=== PATIENT | female | born 1940 | race Caucasian/White ===

== ENCOUNTER 2016-05-19 18:44 | Emergency (ER) | payer BC ==
[~2016-05-19] VITALS: Ht 162.6 cm; Wt 83.0 kg
[~2016-05-19 18:44] MED LIST: ASPI81TA28 PO; CLB/200 PO; CLON0.1T12 PO; CYM/30 PO; DICL-201 PO; HYDR25TA5 PO; LISI40TA PO
[2016-05-19 18:47] VITALS: TEMP 36.7; Ht 162.6 cm; Wt 83.0 kg
[2016-05-19] MEDS ORDERED: CLON0.2T PO (19:35)
[2016-05-19] MEDS ORDERED: CLB100 PO (19:35)
[2016-05-19] MEDS ORDERED: BUPR100T8 PO (19:35)
[2016-05-19 19:49] LABS: URINE APPEARANCE CLEAR (CLEAR); URINE BILIRUBIN NEG (NEG); URINE COLOR YELLOW; URINE EPITHELIAL CELL AUTO 20-30 /lpf (0-5); URINE NITRITE NEG (NEG); URINE SPECIFIC GRAVITY 1.004 (1.000-1.030); UROBILINOGEN NEG (NEG)
--- NOTE | 2016-05-19 19:52 | DIAGNOSTIC IMAGING REPORT ---
RIGHT KNEE 3 VIEWS CLINICAL HISTORY: Right knee pain. No history of trauma. FINDINGS: AP, crosstable lateral, and sunrise views of the right knee are obtained. No prior studies are available for comparison at the time of dictation. The skeletal structures are osteopenic. There is no radiographic evidence of fracture. There is moderate to advanced tricompartmental degenerative joint space narrowing, greatest in the lateral compartment where there is bony sclerosis and subchondral cyst formation. There are tiny lateral marginal osteophytes and patellar enthesophytes. A large joint effusion is noted. The overlying soft tissues are within normal limits. IMPRESSION: 1. Large joint effusion. No acute bony abnormality is seen. 2. Osteopenia and arthritic change as above, advanced in the lateral compartment. Electronically signed by: Lane Hammer M.D. 05/19/2016 7:51 PM Dictated Date/Time: 05/19/2016 7:49 PM
[2016-05-19 19:54] LABS: MANUAL MICROSCOPIC REQUIRED? NO; REVIEW REQ? NO
[2016-05-19 19:56] LABS: BASO % 0.4 %; BASO ABS # 0.04 K/uL (0-0.2); COMPLETE YES; EOS % 2.8 %; HEMATOCRIT 43.6 % (37-47); IG% 0.3 %; LYMPH ABS # 2.22 K/uL (1.2-3.4); MEAN CELL VOLUME 87.2 fL (80-100); MEAN CORPUSCULAR HGB CONC 34.4 g/dl (32-36); MEAN PLATELET VOLUME 9.2 fL (7.4-10.4); MONO % 8.2 %; NEUT % 64.3 %; PLATELET COUNT 237 K/uL (130-400); WHITE BLOOD COUNT 9.24 K/uL (4.8-10.8)
[2016-05-19 20:20] LABS: BUN/CREATININE RATIO 24.4 (10-20); CALCIUM 9.6 mg/dl (8.5-10.1)
[2016-05-19 20:39] LABS: POTASSIUM 3.8 mmol/L (3.5-5.1)
--- NOTE | 2016-05-19 20:53 | EMERGENCY ROOM VISIT NOTE ---
History Report prepared by Keeley: Zakia Espinal Under the Supervision of: Dr. Daniel Khan D.O. First contact with patient: 18:51 Chief Complaint: HYPERTENSION Stated Complaint: HIGH BP History of Present Illness The patient is a 75 year old female who presents to the Emergency Room with complaints of persistent hypertension for the past several days. The patient states that recently she has been under increased emotional stress, pressure, and anxiety. She states that she has multiple stressors in her family that have been causing her stress. The patient additionally notes that she recently had a knee surgery that didn't go well which has also caused increased stress. She states that she takes Clonidine for her hypertension and denies missing any doses. Pt denies headache, change in vision, fevers, chest pain, shortness of breath, nausea, vomiting, diarrhea, pain with urination, and melena. She denies any paresthesias, weakness or numbness of her arms or legs. Source of History: patient Onset: several days Position: other (global) Quality: other (hypertension) Timing: other (persistent) Note: Associated Symptoms: increased emotional stress, pressure, and anxiety Review of Systems See HPI for pertinent positives & negatives. A total of 10 systems reviewed and were otherwise negative. Past Medical & Surgical Medical Problems: (1) Breast cancer (2) Depression (3) Hypercholesteremia (4) Hypertension Surgical Problems: (1) S/P breast lumpectomy Family History No pertinent family history stated Social History Smoking Status: Former Smoker Drug Use: none Marital Status: Housing Status: lives alone Occupation Status: retired Current/Historical Medications Scheduled Aspirin (Aspirin Ec), 81 MG PO DAILY Bupropion (Wellbutrin Sr), 100 MG PO BID Celecoxib (Celebrex), 100 MG PO DAILY Clonidine Hcl (Catapres), 0.2 MG PO TID Duloxetine HCl (Cymbalta), 1 CAP PO HS Hydrochlorothiazide (Hydrochlorothiazide), 25 MG PO QAM Lisinopril (Zestril), 40 MG PO HS Allergies Coded Allergies: Ciprofloxacin (Verified Adverse Reaction, Intermediate, REDNESS ALONG VEIN , 05/19/16) DURING INFUSION PT NOTED TO HAVE MILD ITCHING AND REDNESS AT IV INSERTION AND ABOVE. Atorvastatin (Verified Adverse Reaction, Unknown, muscle pain, 05/19/16) Simvastatin (Verified Adverse Reaction, Unknown, muscle pain, 05/19/16) Physical Exam Vital Signs Date Time Temp Pulse Resp B/P Pulse Ox O2 Delivery O2 Flow Rate FiO2 05/19/16 20:27 129/85 05/19/16 19:34 78 18 168/96 95 Room Air 05/19/16 19:06 78 05/19/16 18:47 36.7 83 18 163/96 95 Room Air Physical Exam GENERAL: Sitting up in bed, anxious, alert, well appearing, well nourished, no distress, non-toxic EYE EXAM: normal conjunctiva, PERRL and EOM's intact OROPHARYNX: no exudate, no erythema, lips, buccal mucosa, and tongue normal and mucous membranes are moist NECK: supple, no nuchal rigidity, no adenopathy, non-tender LUNGS: Clear to auscultation. Normal chest wall mechanics HEART: no murmurs, S1 normal and S2 normal ABDOMEN: abdomen soft, non-tender, normo-active bowel sounds, no masses, no rebound or guarding. BACK: Back is symmetrical on inspection and there is no deformity, no midline tenderness, no CVA tenderness. SKIN: no rashes and no bruising UPPER EXTREMITIES: upper extremities are grossly normal. LOWER EXTREMITIES: No pitting edema. NEURO EXAM: Normal sensorium, cranial nerves II-XII intact, normal speech, no weakness of arms, no weakness of legs. No drift. Finger to nose intact. Gross sensation intact. Medical Decision & Procedures ER Provider Diagnostic Interpretation: Xray results per the radiologist and my interpretation. Other results have been interpreted by the radiologist and reviewed by me. RIGHT KNEE 3 VIEWS CLINICAL HISTORY: Right knee pain. No history of trauma. FINDINGS: AP, crosstable lateral, and sunrise views of the right knee are obtained. No prior studies are available for comparison at the time of dictation. The skeletal structures are osteopenic. There is no radiographic evidence of fracture. There is moderate to advanced tricompartmental degenerative joint space narrowing, greatest in the lateral compartment where there is bony sclerosis and subchondral cyst formation. There are tiny lateral marginal osteophytes and patellar enthesophytes. A large joint effusion is noted. The overlying soft tissues are within normal limits. IMPRESSION: 1. Large joint effusion. No acute bony abnormality is seen. 2. Osteopenia and arthritic change as above, advanced in the lateral compartment. Electronically signed by: Lane Hammer M.D. 05/19/2016 7:51 PM Dictated Date/Time: 05/19/2016 7:49 PM Laboratory Results 05/19/16 19:25 Red Blood Count 5.00, Mean Corpuscular Volume 87.2, Mean Corpuscular Hemoglobin 30.0, Mean Corpuscular Hemoglobin Concent 34.4, Mean Platelet Volume 9.2, Neutrophils (%) (Auto) 64.3, Lymphocytes (%) (Auto) 24.0, Monocytes (%) (Auto) 8.2, Eosinophils (%) (Auto) 2.8, Basophils (%) (Auto) 0.4, Neutrophils # (Auto) 5.93, Lymphocytes # (Auto) 2.22, Monocytes # (Auto) 0.76, Eosinophils # (Auto) 0.26, Basophils # (Auto) 0.04 05/19/16 19:25 Test 05/19/16 19:25 05/19/16 19:28 White Blood Count 9.24 K/uL (4.8-10.8) Red Blood Count 5.00 M/uL (4.2-5.4) Hemoglobin 15.0 g/dL (12.0-16.0) Hematocrit 43.6 % (37-47) Mean Corpuscular Volume 87.2 fL (80-100) Mean Corpuscular Hemoglobin 30.0 pg (25-34) Mean Corpuscular Hemoglobin Concent 34.4 g/dl (32-36) Platelet Count 237 K/uL (130-400) Mean Platelet Volume 9.2 fL (7.4-10.4) Neutrophils (%) (Auto) 64.3 % Lymphocytes (%) (Auto) 24.0 % Monocytes (%) (Auto) 8.2 % Eosinophils (%) (Auto) 2.8 % Basophils (%) (Auto) 0.4 % Neutrophils # (Auto) 5.93 K/uL (1.4-6.5) Lymphocytes # (Auto) 2.22 K/uL (1.2-3.4) Monocytes # (Auto) 0.76 K/uL (0.11-0.59) Eosinophils # (Auto) 0.26 K/uL (0-0.5) Basophils # (Auto) 0.04 K/uL (0-0.2) RDW Standard Deviation 43.0 fL (36.4-46.3) RDW Coefficient of Variation 13.6 % (11.5-14.5) Immature Granulocyte % (Auto) 0.3 % Immature Granulocyte # (Auto) 0.03 K/uL (0.00-0.02) Anion Gap 9.0 mmol/L (3-11) Est Creatinine Clear Calc Drug Dose 50.7 ml/min Estimated GFR () 63.8 Estimated GFR (Non- 55.1 BUN/Creatinine Ratio 24.4 (10-20) Calcium Level 9.6 mg/dl (8.5-10.1) Urine Color YELLOW Urine Appearance CLEAR (CLEAR) Urine pH 6.0 (4.5-7.5) Urine Specific Basco 1.004 (1.000-1.030) Urine Protein NEG (NEG) Urine Glucose (UA) NEG (NEG) Urine Ketones NEG (NEG) Urine Occult Blood NEG (NEG) Urine Nitrite NEG (NEG) Urine Bilirubin NEG (NEG) Urine Urobilinogen NEG (NEG) Urine Leukocyte Esterase SMALL (NEG) Urine WBC (Auto) 5-10 /hpf (0-5) Urine RBC (Auto) 0-4 /hpf (0-4) Urine Hyaline Casts (Auto) 0 /lpf (0-5) Urine Epithelial Cells (Auto) 20-30 /lpf (0-5) Urine Bacteria (Auto) 1+ (NEG) Laboratory results per my review. ECG Indication: other (hypertension) Rate (beats per minute): 73 Rhythm: sinus rhythm Findings: PAC, other (normal axis) ED Course ED COURSE: Vital signs were reviewed and showed hypertensive The patients medical record was reviewed The above diagnostic studies were performed and reviewed. ED treatments and interventions as stated above. 2: The patient was evaluated in room C2. A complete history and physical examination was performed. 2019: I reevaluated the patient and her blood pressure came down to 160 mmHg, but has no other complaints. 2042: Upon reevaluation, the patient is resting comfortably.I discussed my findings with the patient and she understands and agrees with the treatment plan. Based on the patients age, coexisting illnesses, exam and lab findings the decision to treat as an outpatient was made. The patient remained stable while under my care. The patient appeared well at the time of discharge. Medical Decision Differential diagnosis: Etiologies such as benign hypertension, hypertensive emergency, cardiovascular pathology, pheochromocytoma, electrolyte abnormality, renal disease, endorgan damage, as well as others were entertained. Patient is a 75-year-old female who presents the ER for hypertension. She has absolutely no other complaints. She notes that she was checking her blood pressure at home following awaiting a call from her therapist's that is treating her daughter in [place]. Therapist's notified her that she could not talk and will call her later. Following this she checked her blood pressure was elevated in the 190s. She checked again and was elevated 200s and her family member referred her into the ER. Upon presentation her systolic blood pressures is 210 and without intervention her blood pressure came down to 130. CBC along with BMP was unremarkable. UA had no protein present. She is no urinary symptoms and with squamous cells will not treat. EKG was unremarkable. Patient will follow-up with orthopedics for the fusion of her right knee and her primary care doctor for her hypertension. Discussed with Pt concerning signs and symptoms to watch out for. Pt was instructed to follow up with their PCP and discussed with the patient their option to return to the ED at anytime for persistent or worsening symptoms. The appropriate anticipatory guidance and out-patient management, including indications for return to the emergency department, were explained at length to the patient and understood. Impression Primary Impression: HTN (hypertension) Additional Impression: Effusion, right knee Scribe Attestation The scribe's documentation has been prepared under my direction and personally reviewed by me in its entirety. I confirm that the note above accurately reflects all work, treatment, procedures, and medical decision making performed by me. Departure Information Dispostion Home / Self-Care Referrals RV. Devi MD (PCP) Forms HOME CARE DOCUMENTATION FORM, IMPORTANT VISIT INFORMATION, WORK / SCHOOL INSTRUCTIONS Patient Instructions ED HTN Established, My [facility] Additional Instructions Please follow up with your primary care doctor with in the next 24 hours. Any worsening of your symptoms, please return to the ED immediately. This includes fevers greater than 100.4, weakness or numbness in her arms, legs or face, slurred speech, confusion, chest pain, shortness of breath, or any other concerning signs or symptoms from your standpoint. Please follow up with your primary care doctor in regards to your elevated blood pressures. You should also follow up with orthopedics as discussed for the effusion of the right knee. Problem Qualifiers Primary Impression: HTN (hypertension) Hypertension type: unspecified secondary hypertension Qualified Codes: I15.9 - Secondary hypertension, unspecified
[2016-05-19 20:55] VITALS: BP 127/80; PULSE 76; O2SAT 98
[2016-08-25] MEDS ORDERED: ALPR0.5T PO (09:55)
[2016-08-25] MEDS ORDERED: NRV5 PO (09:55)
[2016-11-14] MEDS ORDERED: CLB100 PO (11:05)
[2016-11-14] MEDS ORDERED: ASPI-232 PO (11:05)
[2016-11-14] MEDS ORDERED: cymbalta (11:05)
== END 2016-05-19 20:58 | disposition home or self-care (01) ==
LOC: C.EDB 18:46 → C.EDC 20:58
DX: I15.9 Secondary hypertension, unspecified (principal); M25.461 Effusion, right knee; F32.9 Major depressive disorder, single episode, unspecified; E78.00 Pure hypercholesterolemia, unspecified; Z79.82 Long term (current) use of aspirin; Z79.899 Other long term (current) drug therapy

== ENCOUNTER → 2016-07-01 | Outpatient (CLI) | payer BC ==
[~2016-07-01] MED LIST changes: +ALPR0.5T PO; +ASPI-232 PO; +BISM262C6 PO; +BUPR100T8 PO; -CLB/200 PO; +CLB100 PO; -CLON0.1T12 PO; +CLON0.2T PO; -DICL-201 PO; +GABA-112 PO; +LACT10CA3 PO; +NRV5 PO; +PANT40TA PO; +VARE1PAK15 PO; +cymbalta
--- NOTE | 2016-07-01 16:29 | MAMMOGRAPHY REPORT ---
UNILATERAL LEFT DIGITAL DIAGNOSTIC MAMMOGRAM TOMOSYNTHESIS WITH CAD: 07/01/2016 CLINICAL HISTORY: 75-year-old woman with a personal history of left breast cancer status post lumpec jaki and radiation in 2013 presents for follow-up of a 7 mm nodular asymmetry in the left breast, on ly seen on the CC view. TECHNIQUE: Left breast tomosynthesis in addition to standard 2D mammography was performed. Current yu ackerman was also evaluated with a Computer Aided Detection (CAD) system. COMPARISON: Comparison is made to exams dated: 12/31/2015 ultrasound, 12/31/2015 mammogram, 015 mammogram, 07/03/2014 ultrasound, 07/03/2014 mammogram, and 04/14/2014 aspiration - [facility]. BREAST COMPOSITION: The tissue of the left breast is heterogeneously dense, which may obscure small masses. FINDINGS: There is expected architectural distortion with dystrophic calcification and surgical clip s in the upper outer posterior left breast, at the site of prior lumpectomy. A few other benign rim calcifications are scattered in the left breast. The 7 mm nodular asymmetry in the middle one thir d of the breast, along the posterior nipple line on the CC view is no longer seen. No corresponding abnormality, suspicious mass or focal area of architectural distortion is seen on the tomosynthesis images in that same location. Overall, there is no mammographic evidence of malignancy in the left breast. Recommend return to annual screening schedule. IMPRESSION: ACR BI-RADS CATEGORY 2: BENIGN The 7 mm nodular asymmetry in the left breast is no longer identified, confirming benignity. There are stable postsurgical changes in the upper outer posterior left breast. There is no mammographic evidence of malignancy. Return to annual mammogram screening schedule is recommended. The patient h as been verbally notified of the results. Approximately 10% of breast cancers are not detected with mammography. A negative mammographic repor t should not delay biopsy if a clinically suggestive mass is present. Amna Salomon M.D. ay/:07/01/2016 14:28:28 Hr Manager: Margarita Howell, [facility] letter sent: Normal 1/2 BI-RADS Code: ACR BI-RADS Category 2: Benign
== END | disposition home or self-care (01) ==
LOC: C.MAMM 11:01
PROVIDERS: ATTEND Nurse Practitioner Family
DX: N64.9 Disorder of breast, unspecified (principal)

== ENCOUNTER → 2016-07-01 | Outpatient (CLI) | payer BC ==
--- NOTE | 2016-07-01 12:58 | DIAGNOSTIC IMAGING REPORT ---
CHEST 2 VIEWS ROUTINE CLINICAL HISTORY: Z01.818 Preop examination COMPARISON STUDY: 12/03/2015 FINDINGS: The bones soft tissues and hemidiaphragms are normal. The cardiomediastinal silhouette is normal. The lungs are clear. The pulmonary vasculature is normal. IMPRESSION: Negative chest. Electronically signed by: Stefan Hernandez M.D. 07/01/2016 12:56 PM Dictated Date/Time: 07/01/2016 12:53 PM
--- NOTE | 2016-07-31 06:44 | CODING QUERY MEDICAL NECESSITY ---
CQSUPPORTING DIAGNOSIS NEEDED A supporting diagnosis is required for the test/procedure performed on this patient in order for us to be reimbursed by the patient's insurance. Please provide a supporting diagnosis for the following test/procedure listed below next to the test name along with your signature. *If there is no additional diagnosis for this patient that would support the following test/procedure please document that below next to the test/procedure. Test(s)/Procedure(s) that require a supporting diagnosis: DOS 07/01/16 URINE CULTURE Provider Signature: Date: Thank you Loraine Gonzales [employer] Once completed, please kindly fax back to [phone] For questions please call [phone]
== END | disposition home or self-care (01) ==
LOC: C.RAD 12:30
PROVIDERS: ATTEND Internal Medicine
DX: Z01.818 Encounter for other preprocedural examination (principal); N64.9 Disorder of breast, unspecified; C50.919 Malignant neoplasm of unspecified site of unspecified female breast; N39.0 Urinary tract infection, site not specified

== ENCOUNTER → 2016-07-01 | Outpatient (CLI) | payer BC ==
[2016-07-01 12:45] LABS: URINE APPEARANCE CLOUDY (CLEAR); URINE BILIRUBIN NEG (NEG); URINE COLOR DK YELLOW; URINE EPITHELIAL CELL AUTO >30 /lpf (0-5); URINE NITRITE POS (NEG); URINE PH 6.5 (4.5-7.5); URINE SPECIFIC GRAVITY 1.018 (1.000-1.030); UROBILINOGEN NEG (NEG); ZZUR CULT IF INDIC CLEAN CATCH YES
[2016-07-01 12:48] LABS: PARTIAL THROMBOPLASTIN RATIO 1.1; PROTHROMBIN TIME (PATIENT) 10.4 SECONDS (9.0-12.0)
[2016-07-01 12:53] LABS: MANUAL MICROSCOPIC REQUIRED? NO; REVIEW REQ? YES
== END | disposition home or self-care (01) ==
LOC: C.LABSPEC 12:06
PROVIDERS: ATTEND Internal Medicine
DX: Z01.818 Encounter for other preprocedural examination (principal)

== ENCOUNTER → 2016-07-10 | Outpatient (CLI) | payer BC | END | disposition home or self-care (01) | LOC: C.LABBC 13:57 | PROVIDERS: ATTEND Internal Medicine | DX: K92.1 Melena (principal) ==

== ENCOUNTER → 2016-07-19 | Outpatient (CLI) | payer BC ==
[2016-07-19 13:36] LABS: URINE APPEARANCE CLEAR (CLEAR); URINE BILIRUBIN NEG (NEG); URINE COLOR YELLOW; URINE NITRITE POS (NEG); URINE PH 7.5 (4.5-7.5); URINE SPECIFIC GRAVITY 1.011 (1.000-1.030); UROBILINOGEN NEG (NEG); ZZUR CULT IF INDIC CLEAN CATCH YES
[2016-07-19 13:38] LABS: MANUAL MICROSCOPIC REQUIRED? NO; REVIEW REQ? NO
== END | disposition home or self-care (01) ==
LOC: C.LABBC 12:08
PROVIDERS: ATTEND Internal Medicine
DX: N39.0 Urinary tract infection, site not specified (principal)

== ENCOUNTER → 2016-07-29 | Outpatient (CLI) | payer BC ==
[2016-07-29 14:55] LABS: URINE APPEARANCE CLEAR (CLEAR); URINE BILIRUBIN NEG (NEG); URINE COLOR YELLOW; URINE EPITHELIAL CELL AUTO 0-5 /lpf (0-5); URINE NITRITE NEG (NEG); URINE PH 6.5 (4.5-7.5); URINE SPECIFIC GRAVITY 1.012 (1.000-1.030); UROBILINOGEN NEG (NEG); ZZUR CULT IF INDIC CLEAN CATCH NO
[2016-07-29 14:57] LABS: MANUAL MICROSCOPIC REQUIRED? NO; REVIEW REQ? NO
== END | disposition home or self-care (01) ==
LOC: C.LABBC 10:13
PROVIDERS: ATTEND Internal Medicine
DX: N39.0 Urinary tract infection, site not specified (principal)

== ENCOUNTER 2016-08-18 14:45 | Emergency (ER) | payer BC ==
[~2016-08-18] VITALS: Ht 162.6 cm; Wt 82.7 kg
[~2016-08-18 14:45] MED LIST changes: -ALPR0.5T PO; -ASPI-232 PO; -BISM262C6 PO; -GABA-112 PO; -LACT10CA3 PO; -NRV5 PO; -PANT40TA PO; -VARE1PAK15 PO; -cymbalta
[2016-08-18 14:48] VITALS: TEMP 36.8; Ht 162.6 cm; Wt 82.7 kg
[2016-08-18] MEDS ORDERED: SODIUM CHLORIDE 0.9% 1000ML 1,000 ML IV SCH (16:15)
[2016-08-18 16:36] LABS: BASO % 0.5 %; BASO ABS # 0.05 K/uL (0-0.2); COMPLETE YES; EOS % 2.5 %; HEMATOCRIT 45.5 % (37-47); IG% 0.4 %; LYMPH % 24.8 %; LYMPH ABS # 2.74 K/uL (1.2-3.4); MEAN CELL VOLUME 89.4 fL (80-100); MEAN CORPUSCULAR HEMOGLOBIN 30.8 pg (25-34); MEAN CORPUSCULAR HGB CONC 34.5 g/dl (32-36); MEAN PLATELET VOLUME 9.1 fL (7.4-10.4); NEUT % 63.8 %; PLATELET COUNT 383 K/uL (130-400); RED BLOOD COUNT 5.09 M/uL (4.2-5.4); WHITE BLOOD COUNT 11.07 K/uL (4.8-10.8)
[2016-08-18] MEDS ORDERED: OPTIRAY 320 IV PRN (16:45)
[2016-08-18 16:53] LABS: BUN/CREATININE RATIO 15.4 (10-20); CALCIUM 10.4 mg/dl (8.5-10.1); CREATININE 0.86 mg/dl (0.60-1.20); POTASSIUM 3.5 mmol/L (3.5-5.1)
[2016-08-18 16:55] LABS: ALB/GLOB RATIO 1.1 (0.9-2)
[2016-08-18] MEDS ORDERED: GI COCKTAIL PO STA (17:01)
[2016-08-18 17:37] LABS: URINE APPEARANCE CLEAR (CLEAR); URINE BILIRUBIN NEG (NEG); URINE COLOR YELLOW; URINE EPITHELIAL CELL AUTO >30 /lpf (0-5); URINE NITRITE NEG (NEG); URINE PH 5.5 (4.5-7.5); URINE SPECIFIC GRAVITY 1.016 (1.000-1.030); UROBILINOGEN NEG (NEG); ZZUR CULT IF INDIC CLEAN CATCH NO
[2016-08-18 17:39] LABS: MANUAL MICROSCOPIC REQUIRED? NO; REVIEW REQ? NO
[2016-08-18] MEDS ORDERED: PANT40TA PO (17:39)
[2016-08-18] MEDS ORDERED: VARE1PAK15 PO (17:43)
[2016-08-18] MEDS ORDERED: LACT10CA3 PO (17:44)
[2016-08-18] MEDS ORDERED: BISM262C6 PO (17:45)
--- NOTE | 2016-08-18 18:00 | DIAGNOSTIC IMAGING REPORT ---
ABDOMEN AND PELVIS CT WITH IV CONTRAST CT DOSE: 571.65 mGy.cm HISTORY: Pain central abdominal pain TECHNIQUE: Multiaxial CT images of the abdomen and pelvis were performed following the use of intravenous contrast. COMPARISON STUDY: 10/10/2013 FINDINGS: Lung bases are clear. Liver spleen and pancreas are unremarkable. Kidneys negative for hydronephrosis. No evidence for distention of the gallbladder. Scattered colonic diverticulosis. No evidence for diverticulitis. Fat-containing inguinal hernias unchanged. No evidence of bowel obstructive change. Normal appendix. IMPRESSION: 1. Mild chronic colonic diverticulosis. 2. No evidence for acute diverticulitis. 3. No acute process of the abdomen or pelvis. Electronically signed by: Stefan Hernandez M.D. 08/18/2016 5:58 PM Dictated Date/Time: 08/18/2016 5:56 PM
[2016-08-18] MEDS ORDERED: LIDOCAINE HCL 2% VISC SOLN 20 ML UDC ONE (18:07)
[2016-08-18] MEDS ORDERED: ALUMINUM/MAGNESIUM SUSP 30 ML UDC ONE (18:07)
[2016-08-18 18:10] VITALS: BP 137/81; PULSE 60; O2SAT 98
--- NOTE | 2016-08-18 20:00 | EMERGENCY ROOM VISIT NOTE ---
History First contact with patient: 16:05 Chief Complaint: ABDOMINAL PAIN Stated Complaint: ABD PAIN, NAUSEA, SLEEPY, CHILLS, KNEE SX 08/01 Nursing Triage Summary: Total knee replacement to the right knee on August 01. Patient ambulatory to triage, states "I am so sick. I have been sick since last Thursday. I just want to sleep and am sick." Patient reports abdominal pain, nausea, vomiting, dry heaves, belching, dark stools (taking Pepto). History of Present Illness The patient is a 75 year old female who presents to the Emergency Room with complaints of abdominal pain. Her pain is central abdominal pain and fullness, no change with food but she has noticed more belching over the last 2 weeks. No diarrhea or constipation. Her bowel have changed darker for the last 3 days but the change in color started after having peptobismol. She had vomiting 2-3 days ago but this has now resolved and she is managing to eat and drink. Review of Systems See HPI for pertinent positives & negatives. A total of 10 systems reviewed and were otherwise negative. Past Medical/Surgical History Medical Problems: (1) Breast cancer (2) Depression (3) Hypercholesteremia (4) Hypertension Surgical Problems: (1) S/P breast lumpectomy Family History No pertinent family history Social History Smoking Status: Current Some Day Smoker Drug Use: none Marital Status: Housing Status: lives alone Occupation Status: retired Current/Historical Medications Scheduled Bismuth Subsalicylate (Pepto-Bismol), 262 MG PO BID Clonidine Hcl (Catapres), 0.2 MG PO BID Hydrochlorothiazide (Hydrochlorothiazide), 25 MG PO QAM Lactobacillus-Inulin (Culturelle), 2 CAP PO DAILY Lisinopril (Zestril), 40 MG PO HS Pantoprazole (Protonix), 40 MG PO DAILY Varenicline Tartrate (Chantix Starting Month Pa), 2 TABS PO UD Allergies Coded Allergies: Ciprofloxacin (Verified Adverse Reaction, Intermediate, REDNESS ALONG VEIN , 08/18/16) DURING INFUSION PT NOTED TO HAVE MILD ITCHING AND REDNESS AT IV INSERTION AND ABOVE. Atorvastatin (Verified Adverse Reaction, Unknown, muscle pain, 08/18/16) Simvastatin (Verified Adverse Reaction, Unknown, muscle pain, 08/18/16) Physical Exam Vital Signs Date Time Temp Pulse Resp B/P (MAP) Pulse Ox O2 Delivery O2 Flow Rate FiO2 08/18/16 18:10 60 18 137/81 98 Room Air 08/18/16 16:50 66 18 132/71 97 Room Air 08/18/16 14:48 36.8 63 18 134/73 97 Room Air Pain Rating (0-10): 0 Physical Exam VITAL SIGNS: were reviewed as above GENERAL: no acute distress, obese female, lying in bed SKIN: Warm dry and pink, no rashes, no lesions HEAD: Normocephalic and atraumatic EYES: extraocular muscles intact, pupils equal and reactive to light OROPHARYNX: non erythematous, clear and moist NECK: Supple, no adenopathy or meningismus LUNGS: clear to auscultation, no accessory muscle use HEART: Regular rate and rhythm, heart sounds 1+2, no murmurs ABDOMEN: Soft and nontender, bowel sounds normal, no guarding or rebound tenderness, unable to reproduce abdominal pain RECTAL: skin tag noted on outside, no pain on rectal examination, no impaction, small amount of soft stool, dark brown/green in color, fecal occult blood negative BACK: no CVA tenderness, no central spinal tenderness EXTREMITIES: Warm and well perfused, normal peripheral pulses, recent right TKA surgical scar appears healing without any sign of infection, steri strips still in place. Slight swelling of left calf compared with right but no pain on palpation NEUROLOGICALLY: Awake alert and oriented without overt focal deficit. There is no facial droop. Speech is clear. Vision is grossly normal. MUSCULOSKELETAL: Good muscle tone. No evidence of trauma. Medical Decision & Procedures ER Provider Diagnostic Interpretation: ABDOMEN AND PELVIS CT WITH IV CONTRAST CT DOSE: 571.65 mGy.cm HISTORY: Pain central abdominal pain TECHNIQUE: Multiaxial CT images of the abdomen and pelvis were performed following the use of intravenous contrast. COMPARISON STUDY: 10/10/2013 FINDINGS: Lung bases are clear. Liver spleen and pancreas are unremarkable. Kidneys negative for hydronephrosis. No evidence for distention of the gallbladder. Scattered colonic diverticulosis. No evidence for diverticulitis. Fat-containing inguinal hernias unchanged. No evidence of bowel obstructive change. Normal appendix. IMPRESSION: 1. Mild chronic colonic diverticulosis. 2. No evidence for acute diverticulitis. 3. No acute process of the abdomen or pelvis. Electronically signed by: Setfan Hernandez M.D. 08/18/2016 5:58 PM Dictated Date/Time: 08/18/2016 5:56 PM Laboratory Results 08/18/16 16:22 Red Blood Count 5.09, Mean Corpuscular Volume 89.4, Mean Corpuscular Hemoglobin 30.8, Mean Corpuscular Hemoglobin Concent 34.5, Mean Platelet Volume 9.1, Neutrophils (%) (Auto) 63.8, Lymphocytes (%) (Auto) 24.8, Monocytes (%) (Auto) 8.0, Eosinophils (%) (Auto) 2.5, Basophils (%) (Auto) 0.5, Neutrophils # (Auto) 7.07, Lymphocytes # (Auto) 2.74, Monocytes # (Auto) 0.89, Eosinophils # (Auto) 0.28, Basophils # (Auto) 0.05 08/18/16 16:22 Test 08/18/16 16:22 08/18/16 17:17 White Blood Count 11.07 K/uL (4.8-10.8) Red Blood Count 5.09 M/uL (4.2-5.4) Hemoglobin 15.7 g/dL (12.0-16.0) Hematocrit 45.5 % (37-47) Mean Corpuscular Volume 89.4 fL (80-100) Mean Corpuscular Hemoglobin 30.8 pg (25-34) Mean Corpuscular Hemoglobin Concent 34.5 g/dl (32-36) Platelet Count 383 K/uL (130-400) Mean Platelet Volume 9.1 fL (7.4-10.4) Neutrophils (%) (Auto) 63.8 % Lymphocytes (%) (Auto) 24.8 % Monocytes (%) (Auto) 8.0 % Eosinophils (%) (Auto) 2.5 % Basophils (%) (Auto) 0.5 % Neutrophils # (Auto) 7.07 K/uL (1.4-6.5) Lymphocytes # (Auto) 2.74 K/uL (1.2-3.4) Monocytes # (Auto) 0.89 K/uL (0.11-0.59) Eosinophils # (Auto) 0.28 K/uL (0-0.5) Basophils # (Auto) 0.05 K/uL (0-0.2) RDW Standard Deviation 44.2 fL (36.4-46.3) RDW Coefficient of Variation 13.4 % (11.5-14.5) Immature Granulocyte % (Auto) 0.4 % Immature Granulocyte # (Auto) 0.04 K/uL (0.00-0.02) Anion Gap 8.0 mmol/L (3-11) Est Creatinine Clear Calc Drug Dose 58.8 ml/min Estimated GFR () 76.6 Estimated GFR (Non- 66.1 BUN/Creatinine Ratio 15.4 (10-20) Calcium Level 10.4 mg/dl (8.5-10.1) Total Bilirubin 0.5 mg/dl (0.2-1) Aspartate Amino Transf (AST/SGOT) 19 U/L (15-37) Alanine Aminotransferase (ALT/SGPT) 33 U/L (12-78) Alkaline Phosphatase 132 U/L (45-117) Total Protein 7.7 gm/dl (6.4-8.2) Albumin 4.0 gm/dl (3.4-5.0) Globulin 3.7 gm/dl (2.5-4.0) Albumin/Globulin Ratio 1.1 (0.9-2) Lipase 175 U/L (73-393) Urine Color YELLOW Urine Appearance CLEAR (CLEAR) Urine pH 5.5 (4.5-7.5) Urine Specific [place] 1.016 (1.000-1.030) Urine Protein NEG (NEG) Urine Glucose (UA) NEG (NEG) Urine Ketones NEG (NEG) Urine Occult Blood NEG (NEG) Urine Nitrite NEG (NEG) Urine Bilirubin NEG (NEG) Urine Urobilinogen NEG (NEG) Urine Leukocyte Esterase TRACE (NEG) Urine WBC (Auto) 1-5 /hpf (0-5) Urine RBC (Auto) 0-4 /hpf (0-4) Urine Hyaline Casts (Auto) 1-5 /lpf (0-5) Urine Epithelial Cells (Auto) >30 /lpf (0-5) Urine Bacteria (Auto) NEG (NEG) Medications Administered Medications (Trade) Dose Ordered Sig/Chloe Route Start Time Stop Time Status Last Admin Dose Admin Sodium Chloride 1,000 ml @ 500 mls/hr Q2H IV 08/18/16 16:15 08/18/16 19:13 DC 08/18/16 16:50 500 MLS/HR Miscellaneous Medication (Gi Cocktail) 24 ml NOW STAT PO 08/18/16 17:01 08/18/16 17:02 DC 08/18/16 18:08 24 ML ED Course Complete history and physical taken, routine labs ordered Discussed case with Dr Khan and CT A/P ordered Patient was reassessed after above investigations and GI cocktail and her pain had near resolved. Patient was discharged by Dr Khan Medical Decision Prior records/ancillary studies reviewed. Triage Nursing notes reviewed. Additional history obtained from patient. The patient's history was concerning for abdominal pain. Differential diagnosis: Etiologies such as appendicitis, diverticulitis, PUD, biliary pathology, UTI, pancreatitis, obstruction, mesenteric ischemia, aortic pathology, infections, inflammatory bowel disease, renal colic, as well as others were entertained. Physical examination findings: As above. ER treatment provided: NSS 1L and GI cocktail On reassessment the patient felt better. Diagnostics interpreted by me: The labs revealed mild elevated WBC, ALP and Ca. Imaging studies: CT A/P with IV contrast negative for acute pathology By the evaluation outlined above emergent etiologies such as appendicitis, diverticulitis, PUD, biliary pathology, UTI, pancreatitis, obstruction, mesenteric ischemia, aortic pathology, infections, inflammatory bowel disease, renal colic, as well as others were deemed relatively unlikely. The patient informed about the findings as listed above. All questions were answered and she pleased with the treatment. Return instructions were outlined and the patient was discharged in stable condition. 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 Referral: The patient was referred back to their primary care physician for follow-up in the next 24 hours. She was advised to follow up regarding the ALP and Ca in addition given her history of breast ca. Impression Primary Impression: Gastritis Additional Impressions: Abdominal pain Hypercalcemia Elevated alkaline phosphatase level Departure Information Dispostion Home / Self-Care Condition GOOD Referrals RV. Devi MD (PCP) please investigate/redraw for incidental mildly elevated calcium and ALP given history of breast cancer she may require a PTH and bone scan to assess for bone involvement Forms HOME CARE DOCUMENTATION FORM, IMPORTANT VISIT INFORMATION Patient Instructions Abdominal Pain - [facility], [facility] Additional Instructions Please follow up with your primary care doctor with in the next 24 hours. Any worsening of your symptoms, please return to the ED immediately. This includes fevers greater than 100.4, persistent nausea vomiting, worsening pain, or any other concerning signs or symptoms from your standpoint. Please purchase Pepcid [id number] and take daily or you can try omeprazole instead. Please use Maalox intermittently when the discomfort becomes worse. Resident Tracking Resident Involvement: Resident Care Provided Care Provided: Adult ED Problem Qualifiers
--- NOTE | 2016-08-18 20:57 | EMERGENCY ROOM VISIT NOTE ---
History Report prepared by Keeley: Lata Angel Under the Supervision of: Dr. Daniel Khan D.O. First contact with patient: 16:05 Chief Complaint: ABDOMINAL PAIN Stated Complaint: ABD PAIN, NAUSEA, SLEEPY, CHILLS, KNEE SX 08/01 Nursing Triage Summary: Total knee replacement to the right knee on August 01. Patient ambulatory to triage, states "I am so sick. I have been sick since last Thursday. I just want to sleep and am sick." Patient reports abdominal pain, nausea, vomiting, dry heaves, belching, dark stools (taking Pepto). History of Present Illness The patient is a 75 year old female who presents to the Emergency Room with complaints of constant epigastric abdominal pain that started 1 week ago. She describes the pain as discomfort and states that it feels similar to the feeling of being hungry. The pain is worse with movement. The patient states that her pain was somewhat relieved with a mixture of chano lilliam and cranberry juice. The patient is also experiencing nausea and vomiting, but states that she has not vomited in the last 4 days. The patient's last bowel movement was this morning. She states that her stools have been dark, but she adds that she has been taking Pepto Bismol and the dark stools seemed to start after that. She denies diarrhea and pain or burning with urination. The patient denies any previous abdominal surgeries and states that she still has her gallbladder and appendix. The patient denies any new medications along with recent steroid use. She also denies any recent NSAID use and states that she cut them out a while ago. The patient had a total right knee replacement done on August 01. She denies any chest pain or shortness of breath. Source of History: patient Onset: 1 week ago Position: abdomen (epigastric) Quality: other (discomfort, "similar to feeling of being hungry") Timing: constant Associated Symptoms: + nausea, + vomiting, No chest pain, No SOB, No diarrhea, No urinary symptoms (pain or burning with urination) Review of Systems See HPI for pertinent positives & negatives. A total of 10 systems reviewed and were otherwise negative. Past Medical & Surgical Medical Problems: (1) Breast cancer (2) Depression (3) Hypercholesteremia (4) Hypertension Surgical Problems: (1) S/P breast lumpectomy Family History No pertinent family history Social History Smoking Status: Current Some Day Smoker Drug Use: none Marital Status: Housing Status: lives alone Occupation Status: retired Current/Historical Medications Scheduled Bismuth Subsalicylate (Pepto-Bismol), 262 MG PO BID Clonidine Hcl (Catapres), 0.2 MG PO BID Hydrochlorothiazide (Hydrochlorothiazide), 25 MG PO QAM Lactobacillus-Inulin (Culturelle), 2 CAP PO DAILY Lisinopril (Zestril), 40 MG PO HS Pantoprazole (Protonix), 40 MG PO DAILY Varenicline Tartrate (Chantix Starting Month Pa), 2 TABS PO UD Allergies Coded Allergies: Ciprofloxacin (Verified Adverse Reaction, Intermediate, REDNESS ALONG VEIN , 08/18/16) DURING INFUSION PT NOTED TO HAVE MILD ITCHING AND REDNESS AT IV INSERTION AND ABOVE. Atorvastatin (Verified Adverse Reaction, Unknown, muscle pain, 08/18/16) Simvastatin (Verified Adverse Reaction, Unknown, muscle pain, 08/18/16) Physical Exam Vital Signs Date Time Temp Pulse Resp B/P (MAP) Pulse Ox O2 Delivery O2 Flow Rate FiO2 08/18/16 18:10 60 18 137/81 98 Room Air 08/18/16 16:50 66 18 132/71 97 Room Air 08/18/16 14:48 36.8 63 18 134/73 97 Room Air Physical Exam GENERAL: alert, well appearing, well nourished, no distress, non-toxic EYE EXAM: normal conjunctiva, PERRL and EOM's grossly intact OROPHARYNX: no exudate, no erythema, lips, buccal mucosa, and tongue normal and mucous membranes are moist NECK: supple, no nuchal rigidity, no adenopathy, non-tender LUNGS: Clear to auscultation. Normal chest wall mechanics HEART: no murmurs, S1 normal and S2 normal ABDOMEN: abdomen soft, faint epigastric tenderness, normo-active bowel sounds, no masses, no rebound or guarding. BACK: Back is symmetrical on inspection and there is no deformity, no midline tenderness, no CVA tenderness. SKIN: no rashes and no bruising UPPER EXTREMITIES: upper extremities are grossly normal. LOWER EXTREMITIES: No pitting edema. NEURO EXAM: Normal sensorium, cranial nerves II-XII grossly intact, normal speech, no gross weakness of arms, no gross weakness of legs. Medical Decision & Procedures ER Provider Diagnostic Interpretation: Radiology results as stated below per my review and the radiologist's interpretation: ABDOMEN AND PELVIS CT WITH IV CONTRAST FINDINGS: Lung bases are clear. Liver spleen and pancreas are unremarkable. Kidneys negative for hydronephrosis. No evidence for distention of the gallbladder. Scattered colonic diverticulosis. No evidence for diverticulitis. Fat-containing inguinal hernias unchanged. No evidence of bowel obstructive change. Normal appendix. IMPRESSION: 1. Mild chronic colonic diverticulosis. 2. No evidence for acute diverticulitis. 3. No acute process of the abdomen or pelvis. Electronically signed by: Stefan Hernandez M.D. 08/18/2016 5:58 PM Dictated Date/Time: 08/18/2016 5:56 PM Laboratory Results 08/18/16 16:22 Red Blood Count 5.09, Mean Corpuscular Volume 89.4, Mean Corpuscular Hemoglobin 30.8, Mean Corpuscular Hemoglobin Concent 34.5, Mean Platelet Volume 9.1, Neutrophils (%) (Auto) 63.8, Lymphocytes (%) (Auto) 24.8, Monocytes (%) (Auto) 8.0, Eosinophils (%) (Auto) 2.5, Basophils (%) (Auto) 0.5, Neutrophils # (Auto) 7.07, Lymphocytes # (Auto) 2.74, Monocytes # (Auto) 0.89, Eosinophils # (Auto) 0.28, Basophils # (Auto) 0.05 08/18/16 16:22 Test 08/18/16 16:22 08/18/16 17:17 White Blood Count 11.07 K/uL (4.8-10.8) Red Blood Count 5.09 M/uL (4.2-5.4) Hemoglobin 15.7 g/dL (12.0-16.0) Hematocrit 45.5 % (37-47) Mean Corpuscular Volume 89.4 fL (80-100) Mean Corpuscular Hemoglobin 30.8 pg (25-34) Mean Corpuscular Hemoglobin Concent 34.5 g/dl (32-36) Platelet Count 383 K/uL (130-400) Mean Platelet Volume 9.1 fL (7.4-10.4) Neutrophils (%) (Auto) 63.8 % Lymphocytes (%) (Auto) 24.8 % Monocytes (%) (Auto) 8.0 % Eosinophils (%) (Auto) 2.5 % Basophils (%) (Auto) 0.5 % Neutrophils # (Auto) 7.07 K/uL (1.4-6.5) Lymphocytes # (Auto) 2.74 K/uL (1.2-3.4) Monocytes # (Auto) 0.89 K/uL (0.11-0.59) Eosinophils # (Auto) 0.28 K/uL (0-0.5) Basophils # (Auto) 0.05 K/uL (0-0.2) RDW Standard Deviation 44.2 fL (36.4-46.3) RDW Coefficient of Variation 13.4 % (11.5-14.5) Immature Granulocyte % (Auto) 0.4 % Immature Granulocyte # (Auto) 0.04 K/uL (0.00-0.02) Anion Gap 8.0 mmol/L (3-11) Est Creatinine Clear Calc Drug Dose 58.8 ml/min Estimated GFR () 76.6 Estimated GFR (Non- 66.1 BUN/Creatinine Ratio 15.4 (10-20) Calcium Level 10.4 mg/dl (8.5-10.1) Total Bilirubin 0.5 mg/dl (0.2-1) Aspartate Amino Transf (AST/SGOT) 19 U/L (15-37) Alanine Aminotransferase (ALT/SGPT) 33 U/L (12-78) Alkaline Phosphatase 132 U/L (45-117) Total Protein 7.7 gm/dl (6.4-8.2) Albumin 4.0 gm/dl (3.4-5.0) Globulin 3.7 gm/dl (2.5-4.0) Albumin/Globulin Ratio 1.1 (0.9-2) Lipase 175 U/L (73-393) Urine Color YELLOW Urine Appearance CLEAR (CLEAR) Urine pH 5.5 (4.5-7.5) Urine Specific [place] 1.016 (1.000-1.030) Urine Protein NEG (NEG) Urine Glucose (UA) NEG (NEG) Urine Ketones NEG (NEG) Urine Occult Blood NEG (NEG) Urine Nitrite NEG (NEG) Urine Bilirubin NEG (NEG) Urine Urobilinogen NEG (NEG) Urine Leukocyte Esterase TRACE (NEG) Urine WBC (Auto) 1-5 /hpf (0-5) Urine RBC (Auto) 0-4 /hpf (0-4) Urine Hyaline Casts (Auto) 1-5 /lpf (0-5) Urine Epithelial Cells (Auto) >30 /lpf (0-5) Urine Bacteria (Auto) NEG (NEG) Laboratory results per my review. Medications Administered Medications (Trade) Dose Ordered Sig/Chloe Route Start Time Stop Time Status Last Admin Dose Admin Sodium Chloride 1,000 ml @ 500 mls/hr Q2H IV 08/18/16 16:15 08/18/16 19:13 DC 08/18/16 16:50 500 MLS/HR Miscellaneous Medication (Gi Cocktail) 24 ml NOW STAT PO 08/18/16 17:01 08/18/16 17:02 DC 08/18/16 18:08 24 ML ED Course ED COURSE: Vital signs were reviewed and showed hypertensive. The patients medical record was reviewed The above diagnostic studies were performed and reviewed. ED treatments and interventions as stated above. 1655: The patient was evaluated in room B8 after the medical field representative, Dr. Hussein Winn, evaluated the patient. A complete history and physical examination was performed. 1701: Ordered GI cocktail 24 ml PO 1818: Upon reevaluation, the patient is doing well. The GI cocktail relieved her symptoms .I discussed my findings with the patient and she understands and agrees with the treatment plan. Based on the patients age, coexisting illnesses, exam and lab findings the decision to treat as an outpatient was made. The patient remained stable while under my care. The patient appeared well at the time of discharge. Medical Decision Differential diagnoses includes but is not limited to gastritis, peptic ulcer disease, GERD, gallbladder disease, pancreatitis, small bowel obstruction, acute coronary syndrome, pericarditis, ischemic bowel, irritable bowel disease, irritable bowel syndrome, appendicitis, diverticulitis, malignancy, hernia, urinary tract infection, torsion, perforation, trauma, infectious. Medication Reconciliation: I attest that I have personally reviewed the patient' s current medication list. Blood pressure screening: Patient was found to have an elevated blood pressure and was referred to their primary doctor for recheck and further treatment. Patient is a 75-year-old female who presents the ER for epigastric abdominal pain which has been present for the past month. No true exacerbating or remitting factors. No fevers. Vitals are unremarkable. CBC along with BMP, LFTs, bilirubin and lipase were unremarkable. UA was contaminated. On exam she had minimal tenderness. CT of the abdomen and pelvis was benign. Patient was updated regards to her findings. She was given a GI cocktail and had near complete resolution of her discomfort. I do question whether this is a gastritis first GERD versus peptic ulcer. Recommended patient taking Pepcid daily and following up with her primary care doctor. She was comfortable with this. She was discharged well-appearing to follow-up with her primary care doctor. Discussed with Pt concerning signs and symptoms to watch out for. Pt was instructed to follow up with their PCP and discussed with the patient their option to return to the ED at anytime for persistent or worsening symptoms. The appropriate anticipatory guidance and out-patient management, including indications for return to the emergency department, were explained at length to the patient and understood. Impression Primary Impression: Epigastric abdominal pain Additional Impression: Gastritis Scribe Attestation The scribe's documentation has been prepared under my direction and personally reviewed by me in its entirety. I confirm that the note above accurately reflects all work, treatment, procedures, and medical decision making performed by me. Departure Information Dispostion Home / Self-Care Referrals RV. Devi MD (PCP) Forms HOME CARE DOCUMENTATION FORM, IMPORTANT VISIT INFORMATION Patient Instructions Abdominal Pain - [facility], [facility] Additional Instructions Please follow up with your primary care doctor with in the next 24 hours. Any worsening of your symptoms, please return to the ED immediately. This includes fevers greater than 100.4, persistent nausea vomiting, worsening pain, or any other concerning signs or symptoms from your standpoint. Please purchase Pepcid [id number] and take daily or you can try omeprazole instead. Please use Maalox intermittently when the discomfort becomes worse. Problem Qualifiers Additional Impression: Gastritis Gastritis type: unspecified gastritis Chronicity: acute Gastritis bleeding : presence of bleeding unspecified Qualified Codes: K29.00 - Acute gastritis without bleeding
[2016-08-25] MEDS ORDERED: ALPR0.5T PO (09:55)
[2016-08-25] MEDS ORDERED: NRV5 PO (09:55)
[2016-11-14] MEDS ORDERED: cymbalta (11:05)
[2016-11-14] MEDS ORDERED: CLB100 PO (11:05)
[2016-11-14] MEDS ORDERED: ASPI-232 PO (11:05)
[2016-12-30] MEDS ORDERED: GABA-112 PO (09:40)
== END 2016-08-18 18:38 | disposition home or self-care (01) ==
LOC: C.EDB 14:47
DX: K29.70 Gastritis, unspecified, without bleeding (principal); E78.00 Pure hypercholesterolemia, unspecified; I10 Essential (primary) hypertension; F32.9 Major depressive disorder, single episode, unspecified; F17.200 Nicotine dependence, unspecified, uncomplicated; Z85.3 Personal history of malignant neoplasm of breast; Z98.890 Other specified postprocedural states; Z79.899 Other long term (current) drug therapy; Z88.2 Allergy status to sulfonamides; Z88.8 Allergy status to other drugs, medicaments and biological substances

== ENCOUNTER 2016-08-22 11:11 | Inpatient (IN) | payer BC, OTHER ==
[~2016-08-22] VITALS: Ht 162.6 cm; Wt 82.3 kg
[~2016-08-22 11:11] MED LIST changes: -ASPI81TA28 PO; +BISM262C6 PO; -BUPR100T8 PO; -CLB100 PO; -CYM/30 PO; +LACT10CA3 PO; +PANT40TA PO; +VARE1PAK15 PO
[2016-08-22] MEDS ORDERED: SODIUM CHLORIDE 0.9% 1000ML 1,000 ML IV ONE (12:19)
[2016-08-22] MEDS ORDERED: SODIUM CHLORIDE 0.9% 1000ML 1,000 ML IV STA (12:19)
[2016-08-22] MEDS ORDERED: ONDANSETRON INJ 2 MG/ML 2 ML VIAL IV STA ×2 (12:19→13:40)
--- NOTE | 2016-08-22 12:23 | EMERGENCY ROOM VISIT NOTE ---
History Report prepared by Keeley: Zakia Espinal Under the Supervision of: Dr. Florentino Latif M.D. First contact with patient: 12:09 Chief Complaint: VOMITING Stated Complaint: VOMITING,NAUSEA,DIARRHEA,SLEEPINESS History of Present Illness The patient is a 75 year old female who presents to the Emergency Room with complaints of persistent vomiting for the past fifteen days. She currently rates her discomfort as a 9/10 in severity. The patient states that she first started feeling ill fifteen days ago. She reports that she was evaluated in the emergency department on Thursday and notes slight relief with her Maalox cocktail. The patient states that she felt okay Thursday, but notes that Thursday and she started feeling sick again. She reports that she persistently vomiting last evening into this morning. The patient reports that she developed diarrhea this morning and additionally associates nausea and abdominal pain with her symptoms. She denies any sick contacts. The patient reports an intermittent headache and cough. She denies any chest pain, hematochezia, melena, or urinary symptoms. The patient denies any recent travel , new medications, or recent antibiotic use. She reports that she had a recent knee replacement on August 01. Source of History: patient, family Onset: fifteen days ago Position: other (global) Symptom Intensity: 9/10 Quality: other (vomiting) Timing: other (persistent) Associated Symptoms: + headache, + cough, + nausea, + abdominal pain, + diarrhea, No chest pain, No melena, No hematochezia, No urinary symptoms Review of Systems See HPI for pertinent positives & negatives. A total of 10 systems reviewed and were otherwise negative. Past Medical & Surgical Medical Problems: (1) Breast cancer (2) Depression (3) Hypercholesteremia (4) Hypertension (5) Intractable abdominal pain (6) Intractable nausea and vomiting Surgical Problems: (1) History of right knee joint replacement (2) S/P breast lumpectomy Old medical records were reviewed. Nurse's notes were reviewed and I agree with. Family History Diabetes mellitus FHx: cancer Hypertension Social History Smoking Status: Former Smoker Smokeless Tobacco Use: No Alcohol Use: none Drug Use: none Marital Status: Housing Status: lives alone Occupation Status: retired Current/Historical Medications Scheduled Bismuth Subsalicylate (Pepto-Bismol), 262 MG PO BID Clonidine Hcl (Catapres), 0.2 MG PO BID Hydrochlorothiazide (Hydrochlorothiazide), 25 MG PO QAM Lisinopril (Zestril), 40 MG PO HS Pantoprazole (Protonix), 40 MG PO DAILY Allergies Coded Allergies: Ciprofloxacin (Verified Adverse Reaction, Intermediate, REDNESS ALONG VEIN , 08/22/16) DURING INFUSION PT NOTED TO HAVE MILD ITCHING AND REDNESS AT IV INSERTION AND ABOVE. Atorvastatin (Verified Adverse Reaction, Unknown, muscle pain, 08/22/16) Simvastatin (Verified Adverse Reaction, Unknown, muscle pain, 08/22/16) Physical Exam Vital Signs Date Time Temp Pulse Resp B/P (MAP) Pulse Ox O2 Delivery O2 Flow Rate FiO2 08/22/16 17:35 88 16 133/70 96 Room Air 08/22/16 15:32 104 16 135/94 95 Room Air 08/22/16 14:51 88 18 156/89 93 Room Air 08/22/16 13:35 75 16 133/65 95 Room Air 08/22/16 11:20 36.7 103 20 137/77 95 Room Air Physical Exam General: Well developed well nourished, mildly ill appearing older female who complains of not feeling well, breathing comfortably on room air. Normal speech HEENT: Normal cephalic atraumatic. Pupils are equal round and reactive to light. Extraocular movements are intact. Oropharynx is pink with moist mucous membranes. No swelling of the mouth lips or tongue. Neck: Supple with a midline trachea. No meningeal signs or stiffness, no JVD or bruits. No Stridor. Chest: Clear to auscultation bilaterally. No wheezes or rhonchi. No increased work of breathing. Heart: regular rate and rhythm. Abdomen: Soft nontender, nondistended without rebound guarding or rigidity. Extremities: No cyanosis clubbing or edema. No calf tenderness or assymetry Spine/Back. Non tender to palpation. No CVA tenderness Skin: Good turgor without rashes. Neurologic exam: Cranial nerves two through 12 are intact. Motor and sensation are intact and symmetrical throughout. Medical Decision & Procedures ER Provider Diagnostic Interpretation: X-ray results as stated below per interpretation by me and the radiologist: SINGLE VIEW CHEST CLINICAL HISTORY: Nausea. Atypical chest pain. FINDINGS: An AP, portable, upright chest radiograph is compared to study dated 07/01/2016. The examination is degraded by portable technique and patient rotation. The cardiomediastinal silhouette is unremarkable. There is atherosclerotic calcification of the thoracic aorta. Enlargement of the central pulmonary arteries suggests pulmonary artery hypertension. Emphysema with chronic interstitial thickening and nodularity is similar to previous. No airspace consolidation, large pleural effusion, or pneumothorax is seen. The skeletal structures are osteopenic. The bony thorax is grossly intact. Surgical clips project over the left breast. IMPRESSION: Emphysema with no acute cardiopulmonary abnormality. Electronically signed by: Lane Hammer M.D. 08/22/2016 1:04 PM Dictated Date/Time: 08/22/2016 1:02 PM Laboratory Results 08/22/16 13:00 Red Blood Count 4.54, Mean Corpuscular Volume 89.6, Mean Corpuscular Hemoglobin 31.1, Mean Corpuscular Hemoglobin Concent 34.6, Mean Platelet Volume 9.2, Neutrophils (%) (Auto) 82.3, Lymphocytes (%) (Auto) 8.6, Monocytes (%) (Auto) 8.1, Eosinophils (%) (Auto) 0.8, Basophils (%) (Auto) 0.1, Neutrophils # (Auto) 7.50, Lymphocytes # (Auto) 0.78, Monocytes # (Auto) 0.74, Eosinophils # (Auto) 0.07, Basophils # (Auto) 0.01 08/22/16 13:00 Test 08/22/16 13:00 08/22/16 13:14 08/22/16 13:17 08/22/16 14:52 White Blood Count 9.11 K/uL (4.8-10.8) Red Blood Count 4.54 M/uL (4.2-5.4) Hemoglobin 14.1 g/dL (12.0-16.0) Hematocrit 40.7 % (37-47) Mean Corpuscular Volume 89.6 fL (80-100) Mean Corpuscular Hemoglobin 31.1 pg (25-34) Mean Corpuscular Hemoglobin Concent 34.6 g/dl (32-36) Platelet Count 260 K/uL (130-400) Mean Platelet Volume 9.2 fL (7.4-10.4) Neutrophils (%) (Auto) 82.3 % Lymphocytes (%) (Auto) 8.6 % Monocytes (%) (Auto) 8.1 % Eosinophils (%) (Auto) 0.8 % Basophils (%) (Auto) 0.1 % Neutrophils # (Auto) 7.50 K/uL (1.4-6.5) Lymphocytes # (Auto) 0.78 K/uL (1.2-3.4) Monocytes # (Auto) 0.74 K/uL (0.11-0.59) Eosinophils # (Auto) 0.07 K/uL (0-0.5) Basophils # (Auto) 0.01 K/uL (0-0.2) RDW Standard Deviation 42.7 fL (36.4-46.3) RDW Coefficient of Variation 13.1 % (11.5-14.5) Immature Granulocyte % (Auto) 0.1 % Immature Granulocyte # (Auto) 0.01 K/uL (0.00-0.02) Anion Gap 9.0 mmol/L (3-11) Est Creatinine Clear Calc Drug Dose 63.1 ml/min Estimated GFR () 83.6 Estimated GFR (Non- 72.1 BUN/Creatinine Ratio 16.0 (10-20) Calcium Level 8.9 mg/dl (8.5-10.1) Total Bilirubin 0.6 mg/dl (0.2-1) Direct Bilirubin 0.1 mg/dl (0-0.2) Aspartate Amino Transf (AST/SGOT) 20 U/L (15-37) Alanine Aminotransferase (ALT/SGPT) 28 U/L (12-78) Alkaline Phosphatase 98 U/L (45-117) Total Protein 6.4 gm/dl (6.4-8.2) Albumin 3.1 gm/dl (3.4-5.0) Lipase 132 U/L (73-393) Bedside Troponin I < 0.030 ng/ml (0-0.045) Bedside Lactic Acid Venous 1.12 mmol/L (0.90-1.70) Laboratory studies as stated above per my review. Medications Administered Medications (Trade) Dose Ordered Sig/Chloe Route Start Time Stop Time Status Last Admin Dose Admin Sodium Chloride 1,000 ml @ 999 mls/hr Q1H1M STAT IV 08/22/16 12:19 08/22/16 13:19 DC 08/22/16 12:33 999 MLS/HR Sodium Chloride 1,000 ml @ 150 mls/hr Q6H40M ONCE IV 08/22/16 12:19 08/22/16 18:58 08/22/16 12:33 150 MLS/HR Ondansetron HCl (Zofran Inj) 4 mg NOW STAT IV 08/22/16 12:19 08/22/16 12:21 DC 08/22/16 12:33 4 MG Ondansetron HCl (Zofran Inj) 4 mg NOW STAT IV 08/22/16 13:40 08/22/16 13:41 DC 08/22/16 13:44 4 MG Alprazolam (Xanax Tab) 0.5 mg STK-MED ONCE .ROUTE 08/22/16 14:44 08/22/16 14:45 DC 08/22/16 14:44 0.25 MG Promethazine HCl 12.5 mg/Sodium Chloride 50.5 ml @ 204 mls/hr NOW STAT IV 08/22/16 15:47 08/22/16 16:01 DC 08/22/16 16:47 204 MLS/HR ECG Indication: vomiting Rate (beats per minute): 83 Rhythm: normal sinus Findings: nonspecific-ST abn, PAC Comparison ECG Date: 05/19/16 Change: no significant change ED Course 1211: Past medical records reviewed. The patient was evaluated in room B4B, and a complete history and physical examination were performed. 1219: Ordered Zofran Inj 4 mg IV, Sodium Chloride 1000 ml @ 150 mls/hr IV, Sodium Chloride 1000 ml @ 999 mls/hr IV. 1340: Ordered Zofran Inj 4 mg IV. 1402: I reevaluated the patient and she feels that a lot of anxiety is playing a role in her symptoms. 1444: Ordered Xanax Tab 0.5 mg .route. 1542: I reevaluated the patient and she is. I discussed the exam findings with her and I discussed the treatment plan. She verbalized complete understanding and agreement. She will be evaluated for further treatment. 1547: Ordered Promethazine HCl 12.5 mg/Sodium Chloride 50.5 ml @ 204 mls/hr IV. 1731: I discussed the patients case with Dr. Servin [facility] [place] He is going to evaluate the patient for further treatment. Medical Decision Differentials include, but are not limited to; dehydration, gastroenteritis, electrolyte or metabolic abnormality, infection, sepsis. Blood Pressure Screening: Patient was found to have a slightly eleated blood pressure due to circumstances. I do not believe that the patient requires hypertension monitoring. Medication Reconciliation: I attest that I have personally reviewed the patient' s current medication list. This patient comes in complaining of nausea vomiting diarrhea and some epigastric discomfort. She was seen a couple days ago for similar complaints and says she just hasn't felt any better. She has had a lot of stress at home with her daughter. She denies any chest pain she's had no fever. She is a multiple episodes of vomiting and diarrhea since yesterday. IV access established and she was hydrated with IV normal saline. She was given IV Zofran she required several different dosages of its. Also she was given IV Phenergan. I also tried some Xanax as she said she was feeling anxious and now this seemed to help her feel much better. She's had no white count or fever to suggest infection. She's had no peritonitis. Her lactic acid is within normal limits and therefore sepsis and ischemic colitis are unlikely. She has nothing to suggest liver or gallbladder pancreas disease in terms of her blood work. She has no significant electrode or metabolic abnormalities. She is not feeling well and does not feel she can go home. I did consult Dr. Silverman to see her in the ER for likely observation or admission for hydration and further GI workup treatment and evaluation. Consults Time Called: 1551 Consulting Physician: STEFAN Shaw Returned Call: [phone] I discussed the patients case with STEFAN Shaw. He is going to evaluate the patient for further treatment. Impression Primary Impression: Dehydration Additional Impression: Nausea vomiting and diarrhea Scribe Attestation The scribe's documentation has been prepared under my direction and personally reviewed by me in its entirety. I confirm that the note above accurately reflects all work, treatment, procedures, and medical decision making performed by me. Departure Information Dispostion Being Evaluated By Hospitalist RV. Rosas MD (PCP) Problem Qualifiers
--- NOTE | 2016-08-22 13:06 | DIAGNOSTIC IMAGING REPORT ---
SINGLE VIEW CHEST CLINICAL HISTORY: Nausea. Atypical chest pain. FINDINGS: An AP, portable, upright chest radiograph is compared to study dated 07/01/2016. The examination is degraded by portable technique and patient rotation. The cardiomediastinal silhouette is unremarkable. There is atherosclerotic calcification of the thoracic aorta. Enlargement of the central pulmonary arteries suggests pulmonary artery hypertension. Emphysema with chronic interstitial thickening and nodularity is similar to previous. No airspace consolidation, large pleural effusion, or pneumothorax is seen. The skeletal structures are osteopenic. The bony thorax is grossly intact. Surgical clips project over the left breast. IMPRESSION: Emphysema with no acute cardiopulmonary abnormality. Electronically signed by: Lane Hammer M.D. 08/22/2016 1:04 PM Dictated Date/Time: 08/22/2016 1:02 PM
[2016-08-22 13:25] LABS: BASO % 0.1 %; BASO ABS # 0.01 K/uL (0-0.2); COMPLETE YES; EOS % 0.8 %; HEMATOCRIT 40.7 % (37-47); IG% 0.1 %; LYMPH % 8.6 %; LYMPH ABS # 0.78 K/uL (1.2-3.4); MEAN CELL VOLUME 89.6 fL (80-100); MEAN CORPUSCULAR HEMOGLOBIN 31.1 pg (25-34); MEAN CORPUSCULAR HGB CONC 34.6 g/dl (32-36); MEAN PLATELET VOLUME 9.2 fL (7.4-10.4); MONO % 8.1 %; NEUT % 82.3 %; PLATELET COUNT 260 K/uL (130-400); RED BLOOD COUNT 4.54 M/uL (4.2-5.4); WHITE BLOOD COUNT 9.11 K/uL (4.8-10.8)
[2016-08-22 13:48] LABS: CALCIUM 8.9 mg/dl (8.5-10.1)
[2016-08-22 13:49] LABS: CREATININE 0.8 mg/dl (0.60-1.20); POTASSIUM 3.5 mmol/L (3.5-5.1)
[2016-08-22] MEDS ORDERED: ALPRAZOLAM 0.25 MG TAB PO STA (14:00)
[2016-08-22] MEDS ORDERED: ALPRAZOLAM 0.5 MG TAB ONE (14:44)
[2016-08-22] MEDS ORDERED: PROMETHAZINE HCL INJ 12.5 MG in SODIUM CHLORIDE 0.9% 50ML 50 ML IV STA (15:47)
[2016-08-22] MEDS ORDERED: PROCHLORPERAZINE INJ 5 MG in SYRINGE 4 ML IV PRN (17:00)
[2016-08-22] MEDS ORDERED: ALUMINUM/MAGNESIUM/SIMETH (MAALOX MAX) 30 ML UDC PO PRN (17:00)
[2016-08-22] MEDS ORDERED: ACETAMINOPHEN 325 MG TAB PO PRN (17:00)
[2016-08-22] MEDS ORDERED: POLYETHYLENE (MIRALAX) 17 GM PACK PO PRN (17:00)
[2016-08-22] MEDS ORDERED: ONDANSETRON INJ 2 MG/ML 2 ML VIAL IV PRN (17:00)
[2016-08-22] MEDS ORDERED: MAGNESIUM HYDROXIDE SUSP 30 ML UDC PO PRN (17:00)
[2016-08-22 17:15] VITALS: O2SAT 96; Ht 162.6 cm; Wt 82.3 kg
[2016-08-22] MEDS ORDERED: MoRPHine SULFATE 2 MG/ML CARP IV PRN (17:15)
--- NOTE | 2016-08-22 17:34 | History and Physical ---
History & Physical Date & Time of Service: Aug 22, 2016 at 17:10 Chief Complaint: Vomiting,Nausea,Diarrhea,Sleepiness Primary Care Physician: RV. Devi MD History of Present Illness Source: patient, clinic records, hospital records This is a 75 y/o female with a history of HTN, HLD, depression, and breast cancer who presented to the ED on 08/22 with intractable nausea, vomiting and abdominal pain. The patient states that these symptoms first began over 2 weeks ago and have been increasing in severity. She had presented to the ED on 08/18 and was discharged home after feeling better with a GI cocktail. A CT of the abdomen and pelvis was obtained during that visit which was unremarkable. The patient states that she felt better for a little while, but then her symptoms returned. The states that she was vomiting all of last night and this morning, prompting her to return to the ED. The patient has not been able to keep any food or medications down, stating that she either vomits it back up or has diarrhea. The patient denies any blood in the vomitus or stool. She complains of weakness and fatigue. The also complains of severe abdominal pain , which she describes as a 9/10 dull pain in the center of her abdomen. The patient denies any recent travel, antibiotic use, or sick contacts. The patient does state that she has been stressed lately due to her daughter's alcohol problem. The patient denies fevers, chills, sweats, chest pain, palpitations, claudication, cough, wheezing, shortness of breath, dysuria, hematuria, urinary retention, paralysis, numbness and tingling. 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, stage pT2 Status post reexcision and sentinel lymph node biopsy 12/26/2013 pN0 (i+) Oncotype DX score of 11 Status post completion of radiation therapy 04/13/2014 received 5006 cGy utilizing hypo-fractionation Required post radiation wound care Status: Resolved (2) Depression Status: Chronic (3) Hypercholesteremia Status: Chronic (4) Hypertension Status: Chronic Surgical Problems: (1) History of right knee joint replacement Status: Resolved (2) S/P breast lumpectomy Status: Resolved Family History Diabetes mellitus FHx: cancer Hypertension Social History Smoking Status: Former Smoker (quit a few weeks ago) Smokeless Tobacco Use: No Alcohol Use: none Drug Use: none Marital Status: Housing status: lives alone Occupational Status: retired Immunizations History of Influenza Vaccine: No History of Tetanus Vaccine?: Yes History of Pneumococcal: Yes History of Hepatitis B Vaccine: No Multi-Drug Resistant Organisms History of MDRO: No Allergies Coded Allergies: Ciprofloxacin (Verified Adverse Reaction, Intermediate, REDNESS ALONG VEIN , 08/22/16) DURING INFUSION PT NOTED TO HAVE MILD ITCHING AND REDNESS AT IV INSERTION AND ABOVE. Atorvastatin (Verified Adverse Reaction, Unknown, muscle pain, 08/22/16) Simvastatin (Verified Adverse Reaction, Unknown, muscle pain, 08/22/16) Home Medications Scheduled Bismuth Subsalicylate (Pepto-Bismol), 262 MG PO BID Clonidine Hcl (Catapres), 0.2 MG PO BID Hydrochlorothiazide (Hydrochlorothiazide), 25 MG PO QAM Lisinopril (Zestril), 40 MG PO HS Pantoprazole (Protonix), 40 MG PO DAILY Review of Systems Constitutional: + weakness, + fatigue, No fever, No chills, No sweats Eyes: No worsening of vision, No eye pain, No diplopia ENT: No hearing loss, No sore throat, No trouble swallowing Respiratory: No cough, No wheezing, No shortness of breath Cardiovascular: No chest pain, No claudication, No palpitations Abdomen: + pain, + nausea, + vomiting, + diarrhea, No GI bleeding Musculoskeletal: No joint pain, No muscle pain, No swelling Genitourinary - Female: No dysuria, No urinary retention, No hematuria Neurologic: No paralysis, No weakness, No numbness/tingling Integumentary: No rash, No itch, No color change Physical Exam Vital Signs Date Time Temp Pulse Resp B/P (MAP) Pulse Ox O2 Delivery O2 Flow Rate FiO2 08/22/16 15:32 104 16 135/94 95 Room Air 08/22/16 14:51 88 18 156/89 93 Room Air 08/22/16 13:35 75 16 133/65 95 Room Air 08/22/16 11:20 36.7 103 20 137/77 95 Room Air General Appearance: WD/WN, no apparent distress, + obese Head: normocephalic, atraumatic Eyes: normal inspection, PERRL, EOMI ENT: normal ENT inspection, hearing grossly normal, pharynx normal Neck: supple, no JVD, trachea midline Respiratory/Chest: lungs clear, normal breath sounds, no respiratory distress Cardiovascular: regular rate, rhythm, no gallop, + systolic murmur Abdomen/GI: normal bowel sounds, non tender, soft Extremities/Musculoskelatal: normal inspection, no calf tenderness, no pedal edema, + pertinent finding (recent R TKA, incision covered in Steri strips) Neurologic/Psych: alert, normal mood/affect, oriented x 3 Skin: normal color, warm/dry, no rash Diagnostics Laboratory Results Results Past 24 Hours Test 08/22/16 13:00 08/22/16 13:14 08/22/16 13:17 08/22/16 14:52 Range/Units White Blood Count 9.11 4.8-10.8 K/uL Red Blood Count 4.54 4.2-5.4 M/uL Hemoglobin 14.1 12.0-16.0 g/dL Hematocrit 40.7 37-47 % Mean Corpuscular Volume 89.6 80-100 fL Mean Corpuscular Hemoglobin 31.1 25-34 pg Mean Corpuscular Hemoglobin Concent 34.6 32-36 g/dl Platelet Count 260 130-400 K/uL Mean Platelet Volume 9.2 7.4-10.4 fL Neutrophils (%) (Auto) 82.3 % Lymphocytes (%) (Auto) 8.6 % Monocytes (%) (Auto) 8.1 % Eosinophils (%) (Auto) 0.8 % Basophils (%) (Auto) 0.1 % Neutrophils # (Auto) 7.50 1.4-6.5 K/uL Lymphocytes # (Auto) 0.78 1.2-3.4 K/uL Monocytes # (Auto) 0.74 0.11-0.59 K/uL Eosinophils # (Auto) 0.07 0-0.5 K/uL Basophils # (Auto) 0.01 0-0.2 K/uL RDW Standard Deviation 42.7 36.4-46.3 fL RDW Coefficient of Variation 13.1 11.5-14.5 % Immature Granulocyte % (Auto) 0.1 % Immature Granulocyte # (Auto) 0.01 0.00-0.02 K/uL Sodium Level 139 136-145 mmol/L Potassium Level 3.5 3.5-5.1 mmol/L Chloride Level 104 98-107 mmol/L Carbon Dioxide Level 26 21-32 mmol/L Anion Gap 9.0 3-11 mmol/L Blood Urea Nitrogen 13 7-18 mg/dl Creatinine 0.80 0.60-1.20 mg/dl Est Creatinine Clear Calc Drug Dose 63.1 ml/min Estimated GFR () 83.6 Estimated GFR (Non- 72.1 BUN/Creatinine Ratio 16.0 10-20 Random Glucose 87 70-99 mg/dl Calcium Level 8.9 8.5-10.1 mg/dl Total Bilirubin 0.6 0.2-1 mg/dl Direct Bilirubin 0.1 0-0.2 mg/dl Aspartate Amino Transf (AST/SGOT) 20 15-37 U/L Alanine Aminotransferase (ALT/SGPT) 28 12-78 U/L Alkaline Phosphatase 98 45-117 U/L Total Protein 6.4 6.4-8.2 gm/dl Albumin 3.1 3.4-5.0 gm/dl Lipase 132 73-393 U/L Bedside Troponin I < 0.030 0-0.045 ng/ml Bedside Lactic Acid Venous 1.12 0.90-1.70 mmol/L Microbiology Results 08/22/16 Blood Culture, Received Pending 08/22/16 Blood Culture, Received Pending 08/22/16 Urine Culture, Mary Batch Pending Diagnostic Radiology Reviewed the following studies and agree with interpretation as follows: Patient Name: WILMAR IBRAHIM Unit Number: [id number] Dictated: 08/22/161301 Transcribed: 08/22/161301 EV Printed Date/Time: [~ rep prt dt]/[~ rep prt tm] [~ rep ct labl] - [~ rep ct ivnm] [facility] [place] [address] Dictated: 08/22/161301 Transcribed: 08/22/161301 EV Printed Date/Time: [~ rep prt dt]/[~ rep prt tm] [~ rep ct labl] - [~ rep ct ivnm] Patient: WILMAR IBRAHIM Address1: [address] [facility] Rec: [id number] Address2: Acct ID: [id number] [facility] Zip: [place] [address] Date: 1940 Sex: F Room/Bed: Ref Phy: RV. Devi MD SC: MANISH Att Phy: Report #: [id number] Radha Phy: RV. Devi MD Test: CXR1P Admit Phy: Professor Of Mechanical Engineering: CAMILLA Interpreting Phy: Lane Hammer M.D. Diagnosis: VOMITING,NAUSEA,DIARRHEA, SLEEPINESS Ordering Phy: Florentino Latif M.D. Service Date: 08/22/16 Admit Date: 08/22/16 MNE: [id number] CONF: DICTATED BY: Lane Hammer M.D.]] CC: RV. Shandra, Florentino De La Torre M.D. Endcc: [~ rep ct add3]] SINGLE VIEW CHEST CLINICAL HISTORY: Nausea. Atypical chest pain. FINDINGS: An AP, portable, upright chest radiograph is compared to study dated 07/01/2016. The examination is degraded by portable technique and patient rotation. The cardiomediastinal silhouette is unremarkable. There is atherosclerotic calcification of the thoracic aorta. Enlargement of the central pulmonary arteries suggests pulmonary artery hypertension. Emphysema with chronic interstitial thickening and nodularity is similar to previous. No airspace consolidation, large pleural effusion, or pneumothorax is seen. The skeletal structures are osteopenic. The bony thorax is grossly intact. Surgical clips project over the left breast. IMPRESSION: Emphysema with no acute cardiopulmonary abnormality. Electronically signed by: Lane Hammer M.D. 08/22/2016 1:04 PM Dictated Date/Time: 08/22/2016 1:02 PM The status of this report is Signed. Draft = Not yet reviewed or approved by Radiologist. Signed = Reviewed and approved by Radiologist. <AttendingPhy></AttendingPhy> <FamilyPhy>RV. Devi MD</ FamilyPhy> <PrimaryPhy>RV. Devi MD</PrimaryPhy> <UnitNumber> [id number]</UnitNumber> <VisitNumber>[id number]</VisitNumber> <PatientName> WILMAR IBRAHIM</PatientName> <DateOfBirth>1940</DateOfBirth> <Location> C.EDB</Location> <ServiceDate>08/22/16</ServiceDate> <MNE>ESINDI</MNE> < OrderingPhy>Florentino Latif M.D.</OrderingPhy> <OrderingPhyMNE>f rep ord dr palomo</OrderingPhyMNE> <DictatingPhyMNE>f rep dict dr palomo</DictatingPhyMNE> < CCListMNE>f rep ct mne</CCListMNE> <AdmittingPhyMNE>f pt admit dr palomo</ AdmittingPhyMNE> <AttendingPhyMNE>f pt attend dr palomo</AttendingPhyMNE> <ConsultingPhyMNE>f pt consult dr palomo</ConsultingPhyMNE> <FamilyPhyMNE>f pt fam dr palomo</FamilyPhyMNE> <OtherPhyMNE>f pt other dr palomo</OtherPhyMNE> < PrimaryPhyMNE>f pt prim care dr palomo</PrimaryPhyMNE> <ReferringPhyMNE>f pt referring dr palomo</ReferringPhyMNE> Patient Name: WILMAR IBRAHIM Unit Number: [id number] Dictated: 08/18/161755 Transcribed: 08/18/161755 MS Printed Date/Time: [~ rep prt dt]/[~ rep prt tm] [~ rep ct labl] - [~ rep ct ivnm] [facility] [place] [address] Dictated: 08/18/161755 Transcribed: 08/18/161755 MS Printed Date/Time: [~ rep prt dt]/[~ rep prt tm] [~ rep ct labl] - [~ rep ct ivnm] Patient: WILMAR IBRAHIM Address1: [address] [place] [address] [address] [facility] Rec: [id number] Address2: Acct ID: [id number] [facility] Zip: [place] [address] Date: 1940 Sex: F Room/Bed: Ref Phy: RV. Devi MD SC: MANISH Att Phy: Report #: [id number] Radha Phy: RV. Devi MD Test: APIV Admit Phy: Professor Of Mechanical Engineering: KOBE Interpreting Phy: Stefan Hernandez M.D. Diagnosis: ABD PAIN, NAUSEA, SLEEPY, CHILLS, KNEE SX 08/01 Ordering Phy: Hussein Winn MD Service Date: 08/18/16 Admit Date: 08/18/16 MNE: [id number] CONF: DICTATED BY: Stefan Hernandez M.D.]] CC: Hussein Winn MD Balabanova-Tsarnakova, RV., Daniel Hadley, Endcc: [~ rep ct add3]] ABDOMEN AND PELVIS CT WITH IV CONTRAST CT DOSE: 571.65 mGy.cm HISTORY: Pain central abdominal pain TECHNIQUE: Multiaxial CT images of the abdomen and pelvis were performed following the use of intravenous contrast. COMPARISON STUDY: 10/10/2013 FINDINGS: Lung bases are clear. Liver spleen and pancreas are unremarkable. Kidneys negative for hydronephrosis. No evidence for distention of the gallbladder. Scattered colonic diverticulosis. No evidence for diverticulitis. Fat-containing inguinal hernias unchanged. No evidence of bowel obstructive change. Normal appendix. IMPRESSION: 1. Mild chronic colonic diverticulosis. 2. No evidence for acute diverticulitis. 3. No acute process of the abdomen or pelvis. Electronically signed by: Stefan Hernandez M.D. 08/18/2016 5:58 PM Dictated Date/Time: 08/18/2016 5:56 PM The status of this report is Signed. Draft = Not yet reviewed or approved by Radiologist. Signed = Reviewed and approved by Radiologist. <AttendingPhy></AttendingPhy> <FamilyPhy>RV. Devi MD</ FamilyPhy> <PrimaryPhy>RV. Devi MD</PrimaryPhy> <UnitNumber> [id number]</UnitNumber> <VisitNumber>[id number]</VisitNumber> <PatientName> WILMAR IBRAHIM</PatientName> <DateOfBirth>1940</DateOfBirth> <Location> [facility]</Location> <ServiceDate>08/18/16</ServiceDate> <MNE>ESINDI</MNE> < OrderingPhy>Hussein Winn MD</OrderingPhy> <OrderingPhyMNE>f rep ord dr palomo</ OrderingPhyMNE> <DictatingPhyMNE>f rep dict dr palomo</DictatingPhyMNE> <CCListMNE> f rep ct mne</CCListMNE> <AdmittingPhyMNE>f pt admit dr palomo</AdmittingPhyMNE> < AttendingPhyMNE>f pt attend dr palomo</AttendingPhyMNE> <ConsultingPhyMNE>f pt consult dr palomo</ConsultingPhyMNE> <FamilyPhyMNE>f pt fam dr palomo</FamilyPhyMNE> <OtherPhyMNE>f pt other dr palomo</OtherPhyMNE> < PrimaryPhyMNE>f pt prim care dr palomo</PrimaryPhyMNE> <ReferringPhyMNE>f pt referring dr palomo</ReferringPhyMNE> EKG Reviewed EKG and agree with interpretation as follows: 83 bpm, NSR, PACs Impression Assessment and Plan 75 y/o female with a history of HTN, HLD, depression, and breast cancer who presented to the ED on 08/22 with intractable nausea, vomiting and abdominal pain. Pt presented to the ED on 08/18 with same complaints but had a normal CT of abdomen/pelvis. Pt was given IVF and GI cocktail at that time and felt better. Symptoms have now returned and increased in severity. CXR no acute disease. EKG no ischemic changes. Pt received IV Zofran and Phenergan in ED with no relief. Also received Xanax tab and IVF. Labs grossly unremarkable. Intractable nausea, vomiting, abdominal pain--unremarkable CT 08/18, pt admits to stress lately, could be secondary to ulcer -Admit to med/surg for observation -Consult GI for possible endoscopy, appreciate recs -Clear liquid diet for now -NPO after midnight -Ranitidine 50 mg IV q8h -IVF with NSS + 20 mEq KCl at 125 cc/hr -Try prochlorperazine 5 mg IV q6h prn nausea or vomiting -Morphine 2 mg IV q4h prn pain -Check urine drug screen -If endoscopy negative, consider imaging head to look for central causes of N/V HTN--stable. Pt states has not been able to take her home medications/keep them down due to her GI symptoms -Continue lisinopril 40 mg PO qd and clonidine 0.2 mg PO BID -Hold HCTZ for now while on IVF HLD--pt no longer taking any medications for this, did not tolerate antilipemic meds per outpt records Depression--pt stopped taking her bupropion and duloxetine a month ago, reports this is stable H/o breast cancer s/p sentinel lymph node biopsy and radiation--in remission DVT prophylaxis -Enoxaparin 40 mg SC q24h -KRANTHI Gómez Code Status -Level I, FULL RESUSCITATION STATUS Level of Care Med/Surg Resuscitation Status FULL RESUSCITATION VTE Prophylaxis VTE Risk Assessment Done? Y/N: Yes Risk Level: Moderate Given or contraindicated: Enoxaparin (Lovenox)SQ, T.E.D. Stockkulwant, SCD's Assessment and Plan Attending Addendum: I have physically seen and examined this patient, directed their medical care, supervised the Physician Cyber Instructor's activity, and agree with the H&P as noted above, with the following changes: NONE.
[2016-08-22] MEDS ORDERED: IV FLUIDS COMPLETED PRN (18:30)
[2016-08-22 19:00] VITALS: BP 146/81; PULSE 87; TEMP 37.4; O2SAT 92
[2016-08-22] MEDS: NSS + 20MEQ KCL 1000ML 1,000 ML IV SCH (19:16)
[2016-08-22] MEDS: RANITIDINE IV 50 MG in DEXTROSE 5% 100ML 100 ML IV SCH (19:17)
[2016-08-22] MEDS: BISMUTH SUBSALICYLATE 262 MG CHEW PO SCH (21:00)
[2016-08-22] MEDS: ENOXAPARIN 40 MG/0.4 ML SYR SQ SCH (21:00)
[2016-08-22] MEDS: CLONIDINE HCL 0.1 MG TAB PO SCH (21:28)
[2016-08-22] MEDS: LISINOPRIL 40 MG TAB PO SCH (21:28)
[2016-08-22 22:53] VITALS: BP 109/72; PULSE 92; TEMP 37.7; O2SAT 91
[2016-08-22 23:41] VITALS: TEMP 38.3
[2016-08-23] VITALS (7 sets, daily range): BP systolic 111–172; BP diastolic 72–102; PULSE 78–96; TEMP 36.5–38.1; O2SAT 91–98
[2016-08-23] MEDS: NSS + 20MEQ KCL 1000ML 1,000 ML IV SCH ×3 (03:54→19:51)
[2016-08-23] MEDS: RANITIDINE IV 50 MG in DEXTROSE 5% 100ML 100 ML IV SCH ×3 (04:38→19:51)
[2016-08-23 06:25] LABS: HEMATOCRIT 39.1 % (37-47); MEAN CELL VOLUME 90.1 fL (80-100); MEAN CORPUSCULAR HEMOGLOBIN 29.3 pg (25-34); MEAN CORPUSCULAR HGB CONC 32.5 g/dl (32-36); PLATELET COUNT 204 K/uL (130-400); RED BLOOD COUNT 4.34 M/uL (4.2-5.4); WHITE BLOOD COUNT 5.52 K/uL (4.8-10.8)
[2016-08-23 07:07] LABS: BUN/CREATININE RATIO 15.4 (10-20); CALCIUM 7.7 mg/dl (8.5-10.1); CREATININE 0.78 mg/dl (0.60-1.20); POTASSIUM 4.4 mmol/L (3.5-5.1)
[2016-08-23] MEDS: BISMUTH SUBSALICYLATE 262 MG CHEW PO SCH ×3 (08:49→21:00)
[2016-08-23] MEDS: CLONIDINE HCL 0.1 MG TAB PO SCH ×3 (08:49→21:49)
[2016-08-23] MEDS ORDERED: PANTOprazole SOD 40 MG TAB PO SCH (10:30)
--- NOTE | 2016-08-23 11:37 | Hospitalist Progress Note ---
Hospitalist Progress Note Date of Service Aug 23, 2016. Subjective Pt evaluation today including: conversation w/ patient, conversation w/ family , conversation w/ specialty development consultant (discussed case with Dr. Harrell) Pt continues to have nausea with trying clears this AM, having profound diarrhea. Has been having abd pain periumbilical region constantly for 5 days, chills and sweats at home all week, nausea and vomiting and severe diarrhea started. She just had a TKA 3 weeks ago and likely received perioperative abx plus now she recalls she had 2 rounds of abx prior to her TKA for asymptomatic bacteriuria. Stool and emesis both nonbloody, no melena Constitutional: + fever, + chills Eyes: No problem reported ENT: No problem reported Respiratory: No shortness of breath Cardiovascular: No chest pain Abdomen: + pain, + nausea, + vomiting, + diarrhea, No GI bleeding Musculoskeletal: + joint pain (rt knee) Female : No dysuria, No hematuria All Other Systems: Reviewed and Negative Objective Vital Signs Date Time Temp Pulse Resp B/P (MAP) Pulse Ox O2 Delivery O2 Flow Rate FiO2 08/23/16 06:56 36.8 78 17 126/76 (93) 91 Room Air 08/23/16 03:24 36.5 08/23/16 00:14 38.1 08/23/16 00:05 Room Air 08/22/16 23:41 38.3 08/22/16 22:53 37.7 92 16 109/72 (84) 91 Room Air 08/22/16 19:00 37.4 87 14 146/81 (102) 92 Room Air 08/22/16 19:00 Room Air 08/22/16 18:12 79 16 132/99 96 Room Air 08/22/16 17:35 88 16 133/70 96 Room Air 08/22/16 17:15 96 Room Air 08/22/16 15:32 104 16 135/94 95 Room Air 08/22/16 14:51 88 18 156/89 93 Room Air 08/22/16 13:35 75 16 133/65 95 Room Air Physical Exam General Appearance: WD/WN, no apparent distress, + obese Eyes: normal inspection, sclerae normal ENT: hearing grossly normal, pharynx normal (MMM) Neck: supple, no adenopathy, thyroid normal, trachea midline Respiratory/Chest: lungs clear, normal breath sounds, no respiratory distress, no accessory muscle use Cardiovascular: regular rate, rhythm, no edema, no gallop, no murmur Abdomen: non tender, soft (and obese), no organomegaly, no pulsatile mass, + abnormal bowel sounds (hyperactive) Extremities: non-tender, + pertinent finding (rt knee with steri strips still in pace and nicely healing incision vertically without any erythema or drainage , no effusion) Neurologic/Psychiatric: alert, normal mood/affect, oriented x 3 Skin: normal color, warm/dry, no rash Lymphatic: no adenopathy Laboratory Results Last 24 Hours Test 08/22/16 13:00 08/22/16 13:14 08/22/16 13:17 08/23/16 06:10 White Blood Count 9.11 K/uL 5.52 K/uL Red Blood Count 4.54 M/uL 4.34 M/uL Hemoglobin 14.1 g/dL 12.7 g/dL Hematocrit 40.7 % 39.1 % Mean Corpuscular Volume 89.6 fL 90.1 fL Mean Corpuscular Hemoglobin 31.1 pg 29.3 pg Mean Corpuscular Hemoglobin Concent 34.6 g/dl 32.5 g/dl Platelet Count 260 K/uL 204 K/uL Mean Platelet Volume 9.2 fL 9.0 fL Neutrophils (%) (Auto) 82.3 % Lymphocytes (%) (Auto) 8.6 % Monocytes (%) (Auto) 8.1 % Eosinophils (%) (Auto) 0.8 % Basophils (%) (Auto) 0.1 % Neutrophils # (Auto) 7.50 K/uL Lymphocytes # (Auto) 0.78 K/uL Monocytes # (Auto) 0.74 K/uL Eosinophils # (Auto) 0.07 K/uL Basophils # (Auto) 0.01 K/uL RDW Standard Deviation 42.7 fL 43.8 fL RDW Coefficient of Variation 13.1 % 13.2 % Immature Granulocyte % (Auto) 0.1 % Immature Granulocyte # (Auto) 0.01 K/uL Sodium Level 139 mmol/L 142 mmol/L Potassium Level 3.5 mmol/L 4.4 mmol/L Chloride Level 104 mmol/L 112 mmol/L Carbon Dioxide Level 26 mmol/L 25 mmol/L Anion Gap 9.0 mmol/L 5.0 mmol/L Blood Urea Nitrogen 13 mg/dl 12 mg/dl Creatinine 0.80 mg/dl 0.78 mg/dl Est Creatinine Clear Calc Drug Dose 63.1 ml/min 64.7 ml/min Estimated GFR () 83.6 86.2 Estimated GFR (Non- 72.1 74.4 BUN/Creatinine Ratio 16.0 15.4 Random Glucose 87 mg/dl 82 mg/dl Calcium Level 8.9 mg/dl 7.7 mg/dl Total Bilirubin 0.6 mg/dl Direct Bilirubin 0.1 mg/dl Aspartate Amino Transf (AST/SGOT) 20 U/L Alanine Aminotransferase (ALT/SGPT) 28 U/L Alkaline Phosphatase 98 U/L Total Protein 6.4 gm/dl Albumin 3.1 gm/dl Lipase 132 U/L Bedside Troponin I < 0.030 ng/ml Bedside Lactic Acid Venous 1.12 mmol/L Assessment and Plan 75 y/o female with a history of HTN, HLD, depression, and breast cancer who presented to the ED on 08/22 with intractable nausea, vomiting and abdominal pain. Pt presented to the ED on 08/18 with same complaints but had a normal CT of abdomen/pelvis. Pt was given IVF and GI cocktail at that time and felt better. Symptoms have now returned and increased in severity. CXR no acute disease. EKG no ischemic changes. Pt received IV Zofran and Phenergan in ED with no relief. Also received Xanax tab and IVF. Labs grossly unremarkable. Intractable nausea, diarrhea, vomiting, periumbilical abdominal pain-- unremarkable CT 08/18, nonbloody stool and emesis. Had recent abx 1 month ago x 2 rounds for UTI and the perioperatively for her TKA on 08/01. Highly suspicious for C. diff despite absence of leukocytosis. Had a fever here after admission. -continue supportive care with antiemetics, pain control, IVFs -check stool for C. diff ag, stool culture, and Hemoccult -follow lytes and CBC -Consult GI appreciated and he is in agreement with my assessment -Clear liquid diet for now as tolerated -continue Ranitidine 50 mg IV q8h for now but could dc if C. diff negative Recent TKA-stable, no issues -consider PT consult if has prolonged stay HTN--stable. Pt states has not been able to take her home medications/keep them down due to her GI symptoms -Continue lisinopril 40 mg PO qd and clonidine 0.2 mg PO BID as tolerated -Hold HCTZ for now while on IVF HLD--pt no longer taking any medications for this, did not tolerate antilipemic meds per outpt records Depression--pt stopped taking her bupropion and duloxetine a month ago, reports this is stable H/o breast cancer s/p sentinel lymph node biopsy and radiation--in remission DVT prophylaxis -Enoxaparin 40 mg SC q24h -KRANTHI spann and [facility] Code Status -Level I, FULL RESUSCITATION STATUS
--- NOTE | 2016-08-23 11:46 | DIAGNOSTIC IMAGING REPORT ---
PA CHEST RADIOGRAPH AND UPRIGHT AND SUPINE AP RADIOGRAPHS OF THE ABDOMEN CLINICAL HISTORY: Nausea, vomiting and abdominal pain. COMPARISON STUDY: CT of the abdomen and pelvis August 18, 2016 and chest radiograph August 22, 2016. FINDINGS: Lung volumes are normal. There is no consolidation to suggest pneumonia. There is no evidence for pulmonary edema. There are suspected left breast surgical clips. Cardiac size is normal. Mediastinal contours are normal. There is no free air. There is no evidence for a bowel obstruction. A few prominent loops of gas-filled small bowel with a left upper quadrant are likely within normal limits. IMPRESSION: 1. No free air. A few prominent loops of gas-filled small bowel with the left abdomen without convincing evidence for a small bowel obstructive. 2. No acute cardiopulmonary findings. Electronically signed by: Ephraim Breaux M.D. 08/23/2016 11:45 AM Dictated Date/Time: 08/23/2016 11:43 AM
--- NOTE | 2016-08-23 12:25 | GASTROINTESTINAL CONSULTATION ---
DATE OF CONSULTATION: 08/23/2016 DATE OF CONSULTATION: 08/23/2016. CHIEF COMPLAINT: Nausea and diarrhea. HISTORY OF PRESENT ILLNESS: The patient is a 75-year-old female who presented to the Emergency Room yesterday afternoon for evaluation of persistent nausea, occasional vomiting, abdominal discomfort and recurrent diarrhea. The symptoms have been ongoing for approximately 2-3 weeks and have been worsening. She did seek evaluation in the Emergency Room several days ago and was discharged without a specific diagnosis. She notes having loose to liquid bowel movements almost every hour with urgency and cramping. She describes having epigastric discomfort which does not radiate towards her back. She denies having fevers, chills, or sweats. The patient denies any recent travel history, new medications and is on city water at home. It appears she had a knee surgery several weeks ago and did recieve antibiotics.The patient does recall having a colonoscopy several years ago but does not recall the results. PAST MEDICAL HISTORY: 1. Breast cancer. 2. Depression. 3. Hypercholesterolemia. 4. Hypertension. PAST SURGICAL HISTORY: 1. Right knee joint replacement. 2. Breast lumpectomy. FAMILY HISTORY: Diabetes, hypertension. SOCIAL HISTORY: The patient is a prior smoker, quit a few weeks ago. Denies alcohol use, is , lives by herself. ALLERGIES: CIPROFLOXACIN, ATORVASTATIN AND SIMVASTATIN. OUTPATIENT MEDICATIONS: 1. Pepto-Bismol 262 mg b.i.d. 2. Clonidine 0.2 mg b.i.d. 3. Hydrochlorothiazide 25 mg q.a.m. 4. Zestril 40 mg at bedtime. 5. Protonix 40 mg daily. REVIEW OF SYSTEMS: GENERAL: The patient with weakness and fatigue. EYES: No worsening vision, no eye pain. EARS, NOSE, THROAT: No hearing loss. No sore throat. RESPIRATORY: No cough, no shortness of breath. CARDIAC: No chest pain, no palpitations. ABDOMEN: Mild discomfort and nausea with diarrhea. MUSCULOSKELETAL: No joint pains. GENITOURINARY: No dysuria. NEUROLOGIC: No weakness, no joint pains noted. DERMATOLOGY: No rashes. No itching. PHYSICAL EXAMINATION: VITAL SIGNS: Temperature is 36.8, pulse 78, respiratory rate 17, blood pressure is 126/76, pulse ox 91%. HEAD, EYES, EARS, NOSE, AND THROAT: No scleral icterus noted. No JVD noted. LUNGS: Clear to auscultation. CARDIAC: Regular rate and rhythm. ABDOMEN: Soft, nontender. No hepatosplenomegaly appreciated. EXTREMITIES: No edema noted. NEUROLOGIC: Cranial nerves grossly intact. Motor grossly intact. LABORATORY DATA: White blood cell count 5.52, hemoglobin 12.7, hematocrit is 39.1, platelet count is 204. Sodium 142, potassium 4.4, chloride is 112, BUN 12, creatinine 0.78. Bilirubin 0.6, AST 20, ALT 28, alkaline phosphatase 98, albumin 3.1, lipase is 132. CT from 08/18/2016 reviewed. IMPRESSION: A 75-year-old female presenting with nausea, vomiting, abdominal discomfort and recurrent diarrhea. I wonder if the patient may have bacterial gastroenteritis (C diff) and would suggest further evaluation with stool cultures to include a stool culture, C. diff and ova and parasites. Would recommend a trial of liquid diet. Should the patient's symptoms persist, we could consider upper endoscopy and colonoscopy on Thursday. RECOMMENDATIONS: 1. Stool cultures ordered. 2. Obtain C diff PCR (high suspicion) 3. Continue with IV hydration. 4. Would suggest use of Protonix 40 mg orally one time daily. 5. Please call with any questions or concerns over the weekend. MTDD
[2016-08-23 13:11] LABS: BENZODIAZEPINE, URINE NEG (NEG); COCAINE,URINE NEG (NEG); PHENCYCLIDINE, URINE NEG (NEG)
[2016-08-23] MEDS: ENOXAPARIN 40 MG/0.4 ML SYR SQ SCH (21:00)
[2016-08-23] MEDS: LISINOPRIL 40 MG TAB PO SCH (21:49)
[2016-08-24] MEDS: RANITIDINE IV 50 MG in DEXTROSE 5% 100ML 100 ML IV SCH ×3 (03:40→20:49)
[2016-08-24] MEDS: NSS + 20MEQ KCL 1000ML 1,000 ML IV SCH ×3 (03:40→20:10)
[2016-08-24 06:35] LABS: MEAN CELL VOLUME 90.7 fL (80-100); MEAN CORPUSCULAR HEMOGLOBIN 30.2 pg (25-34); MEAN CORPUSCULAR HGB CONC 33.3 g/dl (32-36); MEAN PLATELET VOLUME 9.4 fL (7.4-10.4); PLATELET COUNT 137 K/uL (130-400); RED BLOOD COUNT 4.41 M/uL (4.2-5.4); WHITE BLOOD COUNT 4.62 K/uL (4.8-10.8)
[2016-08-24 07:13] VITALS: BP 147/82; PULSE 65; TEMP 37; O2SAT 95
[2016-08-24 07:22] LABS: BUN/CREATININE RATIO 7.4 (10-20); CALCIUM 8.4 mg/dl (8.5-10.1); CREATININE 0.69 mg/dl (0.60-1.20)
[2016-08-24 08:10] VITALS: O2SAT 95
[2016-08-24] MEDS: BISMUTH SUBSALICYLATE 262 MG CHEW PO SCH ×2 (10:06→20:50)
[2016-08-24] MEDS: CLONIDINE HCL 0.1 MG TAB PO SCH ×2 (10:09→20:50)
[2016-08-24] MEDS: PANTOprazole SOD 40 MG TAB PO SCH (10:09)
--- NOTE | 2016-08-24 10:40 | Gastroenterology Progress Note ---
Progress Note Date of Service: Aug 24, 2016 Subjective Pt evaluation today including: conversation w/ patient, physical exam The patient notes feeling improved this morning. She notes that her diarrhea has improved significantly since late last evening. She did have basic stool studies done and is presently C. difficile negative. She denies having any nausea or vomiting. Review of Systems Constitutional: No fever, No sweats, No fatigue Respiratory: + shortness of breath, No cough, No wheezing, No dyspnea at rest Cardiac: No chest pain, No PND, No palpitations Abdomen: + diarrhea, No pain, No dysphagia, No jaundice Medications Current Inpatient Medications Medications (Trade) Dose Ordered Sig/Chloe Route Start Time Stop Time Status Last Admin Dose Admin Enoxaparin Sodium (Lovenox Inj) 40 mg HS SQ 08/22/16 21:00 09/21/16 20:59 Acetaminophen (Tylenol Tab) 650 mg Q4H PRN PO 08/22/16 17:00 09/21/16 16:59 08/23/16 00:14 650 MG Al Hydrox/Mg Hydrox/Simethicone (Maalox Max Susp) 15 ml Q4H PRN PO 08/22/16 17:00 09/21/16 16:59 Magnesium Hydroxide (Milk Of Magnesia Susp) 30 ml Q6H PRN PO 08/22/16 17:00 09/21/16 16:59 Polyethylene (Miralax Powder Packet) 17 gm DAILY PRN PO 08/22/16 17:00 09/21/16 16:59 Ondansetron HCl (Zofran Inj) 4 mg Q6H PRN IV 08/22/16 17:00 09/21/16 16:59 08/23/16 10:29 4 MG Potassium Chloride/Sodium Chloride 1,000 ml @ 125 mls/hr Q8H IV 08/22/16 19:15 09/21/16 19:14 08/24/16 10:33 125 MLS/HR Ranitidine HCl 50 mg/Dextrose 102 ml @ 200 mls/hr Q8H IV 08/22/16 20:00 09/21/16 19:59 08/24/16 03:40 200 MLS/HR Prochlorperazine Edisylate 5 mg/ Syringe 5 ml @ 5 mls/min Q6H PRN IV 08/22/16 17:00 09/21/16 16:59 Bismuth Subsalicylate (Pepto-Bismol Chew Tab) 1 tab BID PO 08/22/16 21:00 09/21/16 20:59 Lisinopril (Zestril Tab) 40 mg HS PO 08/22/16 21:00 09/21/16 20:59 08/23/16 21:49 40 MG Clonidine HCl (Catapres Tab) 0.2 mg BID PO 08/22/16 21:00 09/21/16 20:59 08/24/16 10:09 0.2 MG Morphine Sulfate (MoRPHine SULFATE INJ) 2 mg Q4H PRN IV 08/22/16 17:15 09/05/16 17:14 08/22/16 18:11 2 MG Miscellaneous (Iv Fluids Completed) 1 ea PRN PRN N/A 08/22/16 18:30 08/22/17 18:29 Pantoprazole Sodium (Protonix Tab) 40 mg QAM PO 08/24/16 09:00 09/22/16 10:29 08/24/16 10:09 40 MG Objective Vital Signs Date Time Temp Pulse Resp B/P (MAP) Pulse Ox O2 Delivery O2 Flow Rate FiO2 08/24/16 08:10 95 Room Air 08/24/16 07:13 37.0 65 17 147/82 (103) 95 Room Air 08/23/16 23:40 Room Air 08/23/16 22:41 37.1 78 18 147/79 (101) 98 Room Air 08/23/16 21:54 96 172/102 (125) 08/23/16 15:30 Room Air 08/23/16 14:57 37.5 78 16 111/72 (85) 91 Room Air Physical Exam General Appearance: no apparent distress Eyes: PERRL Neck: no JVD Respiratory/Chest: lungs clear Cardiovascular: regular rate, rhythm Abdomen: normal bowel sounds, soft Neurologic/Psych: oriented x 3 Skin: no jaundice Laboratory Results Last 24 Hours Test 08/23/16 12:15 08/23/16 17:00 08/23/16 20:20 08/24/16 06:13 Urine Opiates Screen POS Urine Methadone, Qualitative NEG Urine Barbiturates NEG Urine Phencyclidine (PCP) Level NEG Ur Amphetamine/Methamphetamine NEG MDMA (Ecstasy) Screen NEG Urine Benzodiazepines Screen NEG Urine Cocaine Metabolite NEG Urine Marijuana (THC) NEG Stool Occult Blood NEGATIVE White Blood Count 4.62 K/uL Red Blood Count 4.41 M/uL Hemoglobin 13.3 g/dL Hematocrit 40.0 % Mean Corpuscular Volume 90.7 fL Mean Corpuscular Hemoglobin 30.2 pg Mean Corpuscular Hemoglobin Concent 33.3 g/dl RDW Standard Deviation 44.5 fL RDW Coefficient of Variation 13.4 % Platelet Count 137 K/uL Mean Platelet Volume 9.4 fL Sodium Level 145 mmol/L Potassium Level 4.0 mmol/L Chloride Level 115 mmol/L Carbon Dioxide Level 20 mmol/L Anion Gap 10.0 mmol/L Blood Urea Nitrogen 5 mg/dl Creatinine 0.69 mg/dl Est Creatinine Clear Calc Drug Dose 73.1 ml/min Estimated GFR () 98.7 Estimated GFR (Non- 85.2 BUN/Creatinine Ratio 7.4 Random Glucose 82 mg/dl Calcium Level 8.4 mg/dl Assessment and Plan Patient admitted with nausea, vomiting abdominal pain and diarrhea. She notes that her symptoms are improving significantly since admission. I did offer her colonoscopy as the stool cultures were negative yesterday. The patient would like to hold on this for the present time. Recommendations Bentyl 10 mg 3 times a day as needed for cramping Continue with IV hydration Advance diet to regular diet today Please call with any questions or concerns If symptoms recur would again offer colonoscopy
[2016-08-24] MEDS ORDERED: DICYCLOMINE HCL 10 MG CAP PO PRN (10:45)
[2016-08-24] MEDS ORDERED: AMLODIPINE BESYLATE 5 MG TAB PO ONE (12:00)
[2016-08-24 15:04] VITALS: BP 138/84; PULSE 65; TEMP 36.7; O2SAT 94
[2016-08-24 20:43] VITALS: BP 174/95; PULSE 83; TEMP 37.1; O2SAT 94
[2016-08-24] MEDS: LISINOPRIL 40 MG TAB PO SCH (20:50)
[2016-08-24] MEDS: ENOXAPARIN 40 MG/0.4 ML SYR SQ SCH (20:50)
[2016-08-24 21:30] VITALS: BP 164/93; PULSE 74
[2016-08-24] MEDS ORDERED: ALPRAZOLAM 0.25 MG TAB PO ONE (23:15)
[2016-08-24 23:18] VITALS: BP 124/85; PULSE 64; TEMP 36.7; O2SAT 94
--- NOTE | 2016-08-24 23:41 | Hospitalist Progress Note ---
Hospitalist Progress Note Date of Service Aug 24, 2016. Subjective Pt evaluation today including: conversation w/ patient Pt feeling so much better in the morning when I saw her. Feels like "a switch went on" and symptoms all improved. Denies any further N/V/D, no more abd pain. Afebrile. Then, later in day after reg diet for lunch, she had return of diarrhea but no N/V, no abd pain. Did not feel comfortable going home Constitutional: No fever Respiratory: No shortness of breath Cardiovascular: No chest pain Abdomen: + diarrhea, No pain, No nausea, No vomiting All Other Systems: Reviewed and Negative Objective Vital Signs Date Time Temp Pulse Resp B/P (MAP) Pulse Ox O2 Delivery O2 Flow Rate FiO2 08/24/16 23:18 36.7 64 16 124/85 (98) 94 Room Air 08/24/16 21:30 74 164/93 (116) 08/24/16 20:43 37.1 83 28 174/95 (121) 94 Room Air 08/24/16 16:21 Room Air 08/24/16 15:04 36.7 65 18 138/84 (102) 94 Room Air 08/24/16 08:10 95 Room Air 08/24/16 07:13 37.0 65 17 147/82 (103) 95 Room Air 08/23/16 23:40 Room Air Physical Exam General Appearance: WD/WN, no apparent distress, + obese Eyes: normal inspection, sclerae normal ENT: hearing grossly normal Neck: trachea midline Respiratory/Chest: lungs clear, normal breath sounds, no respiratory distress, no accessory muscle use Cardiovascular: regular rate, rhythm, no edema, no gallop, no murmur Abdomen: normal bowel sounds, non tender, soft Extremities: no pedal edema, no calf tenderness Neurologic/Psychiatric: alert, normal mood/affect, oriented x 3 Skin: normal color, warm/dry, no rash Laboratory Results Last 24 Hours Test 08/24/16 06:13 White Blood Count 4.62 K/uL Red Blood Count 4.41 M/uL Hemoglobin 13.3 g/dL Hematocrit 40.0 % Mean Corpuscular Volume 90.7 fL Mean Corpuscular Hemoglobin 30.2 pg Mean Corpuscular Hemoglobin Concent 33.3 g/dl RDW Standard Deviation 44.5 fL RDW Coefficient of Variation 13.4 % Platelet Count 137 K/uL Mean Platelet Volume 9.4 fL Sodium Level 145 mmol/L Potassium Level 4.0 mmol/L Chloride Level 115 mmol/L Carbon Dioxide Level 20 mmol/L Anion Gap 10.0 mmol/L Blood Urea Nitrogen 5 mg/dl Creatinine 0.69 mg/dl Est Creatinine Clear Calc Drug Dose 73.1 ml/min Estimated GFR () 98.7 Estimated GFR (Non- 85.2 BUN/Creatinine Ratio 7.4 Random Glucose 82 mg/dl Calcium Level 8.4 mg/dl Assessment and Plan 75 y/o female with a history of HTN, HLD, depression, and breast cancer who presented to the ED on 08/22 with intractable nausea, vomiting and abdominal pain. Pt presented to the ED on 08/18 with same complaints but had a normal CT of abdomen/pelvis. Pt was given IVF and GI cocktail at that time and felt better. Symptoms returned and increased in severity. CXR no acute disease. EKG no ischemic changes. Pt received IV Zofran and Phenergan in ED with no relief. Also received Xanax tab and IVF. Labs grossly unremarkable. Intractable nausea, diarrhea, vomiting, periumbilical abdominal pain, sepsis-- unremarkable CT 08/18, nonbloody stool and emesis. Had recent abx 1 month ago x 2 rounds for UTI and the perioperatively for her TKA on 08/01. C. diff negative. Had a fever here after admission with tachycardia. Much improved, then some diarrhea after eating regular diet, but no further fevers HCO3 low at 20 from GI losses -continue supportive care with antiemetics, pain control -f/u stool culture, and Hemoccult -follow lytes and CBC -Consult GI appreciated and he is in agreement with my assessment -Clear liquid diet for now as tolerated -continue Ranitidine 50 mg IV q8h for now but could dc if C. diff negative Recent TKA-stable, no issues -consider PT consult if has prolonged stay HTN--stable. Pt states has not been able to take her home medications/keep them down due to her GI symptoms -Continue lisinopril 40 mg PO qd and clonidine 0.2 mg PO BID as tolerated -continue amlodipine-this med did not make home med list as she forgot about it -Hold HCTZ for now HLD--pt no longer taking any medications for this, did not tolerate antilipemic meds per outpt records Depression--pt stopped taking her bupropion and duloxetine a month ago, reports this is stable H/o breast cancer s/p sentinel lymph node biopsy and radiation--in remission DVT prophylaxis -Enoxaparin 40 mg SC q24h [facility] [place] Code Status -Level I, FULL RESUSCITATION STATUS Dispo-to home likely tomorrow if diarrhea not worse
[2016-08-25] MEDS: RANITIDINE IV 50 MG in DEXTROSE 5% 100ML 100 ML IV SCH (03:53)
[2016-08-25 06:44] LABS: HEMATOCRIT 36.3 % (37-47); MEAN CELL VOLUME 89.6 fL (80-100); MEAN CORPUSCULAR HEMOGLOBIN 30.6 pg (25-34); MEAN CORPUSCULAR HGB CONC 34.2 g/dl (32-36); MEAN PLATELET VOLUME 9.2 fL (7.4-10.4); PLATELET COUNT 173 K/uL (130-400); RED BLOOD COUNT 4.05 M/uL (4.2-5.4); WHITE BLOOD COUNT 4.44 K/uL (4.8-10.8)
[2016-08-25 07:12] LABS: BUN/CREATININE RATIO 7.5 (10-20); CALCIUM 8.3 mg/dl (8.5-10.1); CREATININE 0.59 mg/dl (0.60-1.20); POTASSIUM 3.7 mmol/L (3.5-5.1)
[2016-08-25 07:26] VITALS: BP 152/84; PULSE 76; TEMP 36.7; O2SAT 93
[2016-08-25 08:35] VITALS: BP 151/87; PULSE 83
[2016-08-25] MEDS: CLONIDINE HCL 0.1 MG TAB PO SCH (08:36)
[2016-08-25] MEDS: BISMUTH SUBSALICYLATE 262 MG CHEW PO SCH (08:37)
[2016-08-25] MEDS: PANTOprazole SOD 40 MG TAB PO SCH (08:37)
[2016-08-25] MEDS ORDERED: AMLODIPINE BESYLATE 5 MG TAB PO SCH (09:00)
[2016-08-25] MEDS ORDERED: NRV5 PO (09:55)
[2016-08-25] MEDS ORDERED: ALPR0.5T PO (09:55)
--- NOTE | 2016-08-25 09:56 | Discharge Instructions ---
Discharge Instructions Date of Service Aug 25, 2016. Admission Reason for Admission: Diarrhea Of Presumed Infectious Origin,Sepsis Discharge Discharge Diagnosis / Problem: nausea, vomiting, diarrhea Discharge Goals Goal(s): Diagnostic testing, Therapeutic intervention Activity Recommendations Activity Limitations: resume your previous activity Lifting Limitations: gradually increase as tolerated (as per physical therapy) . Current Hospital Diet Patient's current hospital diet: Regular Diet Discharge Diet Recommended Diet: Regular Diet Pending Studies Studies pending at discharge: no Medical Emergencies . Who to Call and When: Medical Emergencies: If at any time you feel your situation is an emergency, please call 911 immediately. . Non-Emergent Contact Non-Emergency issues call your: Primary Care Provider Call Non-Emergent contact if: temperature is above 101, your pain is unusual for you . . "Provider Documentation" section prepared by Hola Serrano. . VTE Core Measure Inpt VTE Proph given/why not?: Enoxaparin (Lovenox)TIANA, Raffi Pierre, SCD's
--- NOTE | 2016-08-25 10:04 | Gastroenterology Progress Note ---
Progress Note Date of Service: Aug 25, 2016 Subjective Pt evaluation today including: conversation w/ patient, physical exam, chart review, lab review Patient reports improved symptoms. Stools are forming. No further liquid stools or nausea/vomiting. She verbalizes desire to go home today. Laboratory testing reviewed. Stool studies negative. No anemia or leukocytosis. Review of Systems Constitutional: + see HPI Abdomen: + see HPI Medications Current Inpatient Medications Medications (Trade) Dose Ordered Sig/Chloe Route Start Time Stop Time Status Last Admin Dose Admin Enoxaparin Sodium (Lovenox Inj) 40 mg HS SQ 08/22/16 21:00 09/21/16 20:59 Acetaminophen (Tylenol Tab) 650 mg Q4H PRN PO 08/22/16 17:00 09/21/16 16:59 08/23/16 00:14 650 MG Al Hydrox/Mg Hydrox/Simethicone (Maalox Max Susp) 15 ml Q4H PRN PO 08/22/16 17:00 09/21/16 16:59 08/24/16 17:22 15 ML Magnesium Hydroxide (Milk Of Magnesia Susp) 30 ml Q6H PRN PO 08/22/16 17:00 09/21/16 16:59 Polyethylene (Miralax Powder Packet) 17 gm DAILY PRN PO 08/22/16 17:00 09/21/16 16:59 Ondansetron HCl (Zofran Inj) 4 mg Q6H PRN IV 08/22/16 17:00 09/21/16 16:59 08/23/16 10:29 4 MG Ranitidine HCl 50 mg/Dextrose 102 ml @ 200 mls/hr Q8H IV 08/22/16 20:00 09/21/16 19:59 08/25/16 03:53 200 MLS/HR Prochlorperazine Edisylate 5 mg/ Syringe 5 ml @ 5 mls/min Q6H PRN IV 08/22/16 17:00 09/21/16 16:59 Bismuth Subsalicylate (Pepto-Bismol Chew Tab) 1 tab BID PO 08/22/16 21:00 09/21/16 20:59 08/25/16 08:37 1 TAB Lisinopril (Zestril Tab) 40 mg HS PO 08/22/16 21:00 09/21/16 20:59 08/24/16 20:50 40 MG Clonidine HCl (Catapres Tab) 0.2 mg BID PO 08/22/16 21:00 09/21/16 20:59 08/25/16 08:36 0.2 MG Morphine Sulfate (MoRPHine SULFATE INJ) 2 mg Q4H PRN IV 08/22/16 17:15 09/05/16 17:14 08/22/16 18:11 2 MG Miscellaneous (Iv Fluids Completed) 1 ea PRN PRN N/A 08/22/16 18:30 08/22/17 18:29 Pantoprazole Sodium (Protonix Tab) 40 mg QAM PO 08/24/16 09:00 09/22/16 10:29 08/25/16 08:37 40 MG Dicyclomine HCl (Bentyl Cap) 10 mg Q8H PRN PO 08/24/16 10:45 09/23/16 10:44 Amlodipine Besylate (Norvasc Tab) 5 mg QAM PO 08/25/16 09:00 09/24/16 08:59 08/25/16 08:37 5 MG Objective Vital Signs Date Time Temp Pulse Resp B/P (MAP) Pulse Ox O2 Delivery O2 Flow Rate FiO2 08/25/16 08:35 83 151/87 (108) 08/25/16 07:26 36.7 76 18 152/84 (106) 93 Room Air 08/24/16 23:45 Room Air 08/24/16 23:18 36.7 64 16 124/85 (98) 94 Room Air 08/24/16 21:30 74 164/93 (116) 08/24/16 20:43 37.1 83 28 174/95 (121) 94 Room Air 08/24/16 16:21 Room Air 08/24/16 15:04 36.7 65 18 138/84 (102) 94 Room Air Physical Exam General Appearance: no apparent distress Respiratory/Chest: lungs clear, normal breath sounds, no respiratory distress Cardiovascular: regular rate, rhythm, no gallop, no murmur Abdomen: normal bowel sounds, non tender, soft Neurologic/Psych: alert, normal mood/affect, oriented x 3 Laboratory Results Last 24 Hours Test 08/25/16 06:12 White Blood Count 4.44 K/uL Red Blood Count 4.05 M/uL Hemoglobin 12.4 g/dL Hematocrit 36.3 % Mean Corpuscular Volume 89.6 fL Mean Corpuscular Hemoglobin 30.6 pg Mean Corpuscular Hemoglobin Concent 34.2 g/dl RDW Standard Deviation 44.0 fL RDW Coefficient of Variation 13.3 % Platelet Count 173 K/uL Mean Platelet Volume 9.2 fL Sodium Level 146 mmol/L Potassium Level 3.7 mmol/L Chloride Level 114 mmol/L Carbon Dioxide Level 23 mmol/L Anion Gap 9.0 mmol/L Blood Urea Nitrogen 4 mg/dl Creatinine 0.59 mg/dl Est Creatinine Clear Calc Drug Dose 85.5 ml/min Estimated GFR () 103.9 Estimated GFR (Non- 89.7 BUN/Creatinine Ratio 7.5 Random Glucose 87 mg/dl Calcium Level 8.3 mg/dl Assessment and Plan Patient is a 75 year-old female admitted with n/v/d, now with improved symptoms. 1. Okay for discharge from GI standpoint. 2. Follow up in our office if symptoms return. Agree with ELAINE Acuna as above Patient was discharged prior to my evaluation.
[2016-08-25 11:06] VITALS: BP 151/87; PULSE 83; TEMP 36.7; O2SAT 93
--- NOTE | 2016-08-25 17:15 | Progress Note ---
Subjective Date of Service: Aug 25, 2016. Problem List Medical Problems: (1) Abdominal pain Status: Acute (2) Dehydration Status: Acute (3) Effusion, right knee Status: Acute (4) Gastritis Status: Acute (5) HTN (hypertension) Status: Acute (6) Nausea vomiting and diarrhea Status: Acute Objective Vital Signs Date Time Temp Pulse Resp B/P (MAP) Pulse Ox O2 Delivery O2 Flow Rate FiO2 08/25/16 08:35 83 151/87 (108) 08/25/16 07:26 36.7 76 18 152/84 (106) 93 Room Air 08/24/16 23:45 Room Air 08/24/16 23:18 36.7 64 16 124/85 (98) 94 Room Air 08/24/16 21:30 74 164/93 (116) 08/24/16 20:43 37.1 83 28 174/95 (121) 94 Room Air 08/24/16 16:21 Room Air 08/24/16 15:04 36.7 65 18 138/84 (102) 94 Room Air Laboratory Results Last 24 Hours Test 08/25/16 06:12 White Blood Count 4.44 K/uL Red Blood Count 4.05 M/uL Hemoglobin 12.4 g/dL Hematocrit 36.3 % Mean Corpuscular Volume 89.6 fL Mean Corpuscular Hemoglobin 30.6 pg Mean Corpuscular Hemoglobin Concent 34.2 g/dl RDW Standard Deviation 44.0 fL RDW Coefficient of Variation 13.3 % Platelet Count 173 K/uL Mean Platelet Volume 9.2 fL Sodium Level 146 mmol/L Potassium Level 3.7 mmol/L Chloride Level 114 mmol/L Carbon Dioxide Level 23 mmol/L Anion Gap 9.0 mmol/L Blood Urea Nitrogen 4 mg/dl Creatinine 0.59 mg/dl Est Creatinine Clear Calc Drug Dose 85.5 ml/min Estimated GFR () 103.9 Estimated GFR (Non- 89.7 BUN/Creatinine Ratio 7.5 Random Glucose 87 mg/dl Calcium Level 8.3 mg/dl Assessment and Plan 75 y/o female intractable nausea and vomiting, recurrent ER visits, with a history of HTN, HLD, depression, and breast cancer who presented to the ED on 08/22 with intractable nausea, vomiting and abdominal pain. Initial ER visit with CT showed no acute issues Intractable nausea, diarrhea, vomiting, periumbilical abdominal pain, workup has been non revealing, advance diet as tolerated Recent TKA-stable, no issues -consider PT consult if has prolonged stay HTN--stable. home meds include,lisinopril 40 mg PO qd and clonidine 0.2 mg PO BID amlodipine-this med did not make home med list as she forgot about it -Hold HCTZ H/o breast cancer s/p sentinel lymph node biopsy and radiation--in remission DVT prophylaxis-Enoxaparin 40 mg SC q24h Code Status-Level I, FULL RESUSCITATION STATUS
--- NOTE | 2016-08-25 17:17 | Discharge Summary ---
Discharge Summary Date of Service Aug 25, 2016. Discharge Summary Admission Date: Aug 23, 2016 at 11:42 Discharge Date: Aug 25, 2016 Discharge Disposition: Home Principal Diagnosis: nausea vomiting and diarrhea Immunizations: Have You Had Influenza Vaccine: No History of Tetanus Vaccine?: Yes History of Pneumococcal: Yes History of Hepatitis B Vaccine: No Medication Reconciliation New Medications: Alprazolam (Xanax) 0.5 Mg Tab 0.5 MG PO Q6H, #10 TAB Amlodipine Besylate (Amlodipine Besylate) 5 Mg Tab 5 MG PO QAM, #30 TAB Continued Medications: Bismuth Subsalicylate (Pepto-Bismol) 262 Mg Chw 262 MG PO BID Clonidine Hcl (Catapres) 0.2 Mg Tab 0.2 MG PO BID, TAB Lisinopril (Zestril) 40 Mg Tab 40 MG PO HS, TAB Pantoprazole (Protonix) 40 Mg Tab 40 MG PO DAILY, #30 TAB Discontinued Medications: Hydrochlorothiazide (Hydrochlorothiazide) 25 Mg Tab 25 MG PO QAM Discharge Exam Review of Systems: Constitutional: No fever, No chills Respiratory: No cough, No sputum Abdomen: No pain, No nausea, No vomiting, No diarrhea, No constipation Physical Exam: General Appearance: WD/WN, no apparent distress Eyes: PERRL, EOMI Neck: supple, no JVD Respiratory/Chest: chest non-tender, lungs clear, normal breath sounds Cardiovascular: regular rate, rhythm, no murmur Hospital Course 75 y/o female intractable nausea and vomiting, recurrent ER visits, with a history of HTN, HLD, depression, and breast cancer who presented to the ED on 08/22 with intractable nausea, vomiting and abdominal pain. Initial ER visit with CT showed no acute issues, pt has resolution, states she feels well enough to go home and does not want to eat hospital food as she feels it makes her feel more ill, did eat toast prior to leaving, workup has been non revealing, advance diet as tolerated Recent TKA-stable, no issues continue outpt PT HTN--stable. home meds include,lisinopril 40 mg PO qd and clonidine 0.2 mg PO BID amlodipine-this med did not make home med list as she forgot about it -Hold HCTZ H/o breast cancer s/p sentinel lymph node biopsy and radiation--in remission DVT prophylaxis-Enoxaparin 40 mg SC q24h Code Status-Level I, FULL RESUSCITATION STATUS Total Time Spent: Greater than 30 minutes This includes examination of the patient, discharge planning, medication reconciliation, and communication with other providers. Discharge Instructions Please refer to the electronic Patient Visit Report (Discharge Instructions) for additional information.
[2016-08-27 09:04] LABS: COD UR NEGATIVE NG/ML (CUTOFF=50); HYDROCOD UR NEGATIVE NG/ML (CUTOFF=50); HYDROMOR UR NEGATIVE NG/ML (CUTOFF=50); MORPHINE UR 376 NG/ML (CUTOFF=50); NORHYDROCODONE CONF UR NEGATIVE NG/ML (CUTOFF=50); OXYMORPH UR NEGATIVE NG/ML (CUTOFF=50)
[2016-08-30 16:17] LABS: CRYPTOSPORIDIUM AG TC 37213 NOT DETECTED (NOT DETECTED); ISOSPORA+CYCLOSPORA NOT DETECTED (NOT DETECTED); O&P GIARDIA AG NOT DETECTED (NOT DETECTED); O&P SOURCE OTHER-STOOL
[2016-11-14] MEDS ORDERED: ASPI-232 PO (11:05)
[2016-11-14] MEDS ORDERED: CLB100 PO (11:05)
[2016-11-14] MEDS ORDERED: cymbalta (11:05)
[2016-12-30] MEDS ORDERED: GABA-112 PO (09:40)
== END 2016-08-25 11:20 | disposition home or self-care (01) | DRG 392 ==
LOC: C.EDB 11:12 → C.MSW 17:05 → INTOOBSV 17:05 → EDBEDREQ 17:16 → ENRESERV 18:17 → OBSVTOIN 08-23 11:42
PROVIDERS: ADMIT Hospitalist; ATTEND Internal Medicine
DX: R19.7 Diarrhea, unspecified (principal); F32.9 Major depressive disorder, single episode, unspecified; K29.70 Gastritis, unspecified, without bleeding; I10 Essential (primary) hypertension; E78.5 Hyperlipidemia, unspecified; E86.0 Dehydration; Z96.651 Presence of right artificial knee joint; Z87.891 Personal history of nicotine dependence; Z92.3 Personal history of irradiation; Z85.3 Personal history of malignant neoplasm of breast; R10.9 Unspecified abdominal pain; Z53.20 Procedure and treatment not carried out because of patient's decision for unspecified reasons

== ENCOUNTER → 2016-11-06 | Outpatient (CLI) | payer BC ==
[~2016-11-06] MED LIST changes: +ASPI-232 PO; +CLB100 PO; -HYDR25TA5 PO; -LACT10CA3 PO; +NRV5 PO; -VARE1PAK15 PO; +cymbalta
--- NOTE | 2016-11-06 15:26 | DIAGNOSTIC IMAGING REPORT ---
MRI OF THE LUMBAR SPINE WITHOUT IV CONTRAST CLINICAL HISTORY: Lower extremity weakness. Chronic low back pain. COMPARISON STUDY: Abdominal CT dated 08/18/2016. MRI of the thoracic spine dated 08/04/2012. TECHNIQUE: MRI of the lumbar spine is performed utilizing various T1 and T2-weighted sequences in the axial and sagittal planes. IV contrast was not administered for this examination. FINDINGS: Lumbar spine: Vertebral body height is maintained throughout the lumbar spine. There is minimal anterolisthesis seen at L3-L4 and L4-L5. Alignment is otherwise preserved. Marrow signal intensity is heterogeneous. Anterior osteophytes are seen throughout. The transverse and spinous processes are intact as imaged. There is no evidence of spondylolysis. Chronic degenerative endplate change is seen at all lumbar levels. Mild endplate edema is seen at L1-L2 and L2-L3. No destructive bony process is identified. Intervertebral discs: Degenerative disc desiccation and loss of height is seen throughout the lumbar spine. Loss of height is advanced at L1-L2 and L2-L3. Loss of height is moderate at L3-L4 and L4-L5. Spinal cord and central canal: Partially imaged spinal cord is normal in morphology and signal intensity. The conus medullaris terminates at the level of T12-L1. Again seen is a 5 mm intradural extramedullary nodule within the posterior central canal at the level of T11-T12. This likely represents a meningioma and has not significantly changed dating back to 2012. L1-L2: There is posterior disc bulge. No significant acquired compromise of the central canal is identified. There is bilateral subarticular stenosis. The neural foramina appear clear. L2-L3: There is broad-based posterior disc bulge. In conjunction with hypertrophy of the ligamentum flavum there is mild acquired compromise of the central canal. The minimum AP diameter measures 9.5 mm. There is bilateral subarticular stenosis. This may abut the exiting bilateral L2 nerve roots. The neural foramina are patent. L3-L4: There is broad-based posterior disc bulge with annular fissure. In conjunction with hypertrophy of the ligamentum flavum there is mild acquired compromise of the central canal. The minimum AP diameter measures 7 mm. There is bilateral subarticular stenosis. The disc bulge may abut the exiting L3 and transiting L4 nerve roots. Facet arthropathy is of no consequence. The neural foramina are patent. L4-L5: There is posterior disc bulge with annular fissure. In conjunction with hypertrophy of the ligamentum flavum and mild anterolisthesis there is moderate central canal stenosis at this level with a minimum AP diameter of 5 mm. There is subarticular stenosis with probable impingement on the exiting bilateral L4 nerve roots. The disc bulge also likely abuts the transiting bilateral nerve roots. Facet arthropathy causes minimal left greater than right neural foraminal stenosis. L5-S1: There is minimal posterior disc bulge. The central canal is widely patent. Facet arthropathy is of no consequence. The neural foramina are clear. Facet joint effusion is noted on the right. Sacrum: The visualized sacrum is normal in morphology and signal intensity. Soft tissues: There is mild fatty atrophy of the paraspinous and iliopsoas musculature. The partially visualized retroperitoneal structures are grossly unremarkable but incompletely assessed. IMPRESSION: 1. Multilevel lumbosacral spondylosis with multilevel acquired compromise of the central canal. This is greatest at L4-L5. See discussion for detailed level by level analysis. 2. Multilevel degenerative disc disease and endplate sclerosis as detailed above. 3. No destructive bony process is identified. 4. A 5 mm intradural extramedullary nodule within the posterior spinal canal at the level of T11-T12 is unchanged from 2013 and likely represents a small meningioma. Dictated: 11/06/2016 3:12 PM Transcribed: 11/06/2016 3:26 PM [email or web address] Electronically signed by: Lane Hammer M.D. 11/06/2016 3:26 PM Dictated Date/Time: 11/06/2016 3:12 PM
== END | disposition home or self-care (01) ==
LOC: C.MRIBC 12:33
PROVIDERS: ATTEND Physician Assistant Medical
DX: M47.26 Other spondylosis with radiculopathy, lumbar region (principal); M47.27 Other spondylosis with radiculopathy, lumbosacral region; R90.89 Other abnormal findings on diagnostic imaging of central nervous system

== ENCOUNTER → 2017-01-28 | Outpatient (CLI) | payer BC ==
[~2017-01-28] MED LIST changes: -BISM262C6 PO; +GABA-112 PO
--- NOTE | 2017-01-28 15:20 | MAMMOGRAPHY REPORT ---
BILATERAL DIGITAL DIAGNOSTIC MAMMOGRAM TOMOSYNTHESIS WITH CAD: 01/28/2017 CLINICAL HISTORY: History of left breast cancer status post lumpectomy November 2013 as well as radi ation therapy. The patient reports intermittent pain along her surgical scar since her surgery, with out any lumps or other new complaints. TECHNIQUE: Breast tomosynthesis in addition to standard 2D mammography was performed. Current study was also evaluated with a Computer Aided Detection (CAD) system. Bilateral CC and MLO 2-D and tomosy nthesis images and spot magnification left CC and ML views were obtained. COMPARISON: Comparison is made to exams dated: 07/01/2016 mammogram, 12/31/2015 ultrasound, 6 mammogram, 07/03/2014 ultrasound, 07/03/2014 mammogram, and 03/30/2014 ultrasound - [facility]. BREAST COMPOSITION: There are scattered areas of fibroglandular density in both breasts. FINDINGS: There are no suspicious masses, calcifications, or areas of architectural distortion noted in either breast. There has been no significant interval change compared to prior exams. There are stable postsurgical changes in the left upper outer quadrant from prior lumpectomy, including stable density, architectural distortion, and surgical clips at the lumpectomy bed. Scattered benign coars e dystrophic calcifications at the lumpectomy bed are again noted. Other scattered bilateral benign- appearing calcifications are not significantly changed. Mild diffuse left breast skin thickening is not significantly changed, and is likely secondary to prior radiation therapy. IMPRESSION: ACR BI-RADS CATEGORY 2: BENIGN There is no mammographic evidence of malignancy in either breast. A 1 year screening mammogram is rec ommended. The patient has been verbally notified of the results. Approximately 10% of breast cancers are not detected with mammography. A negative mammographic report should not delay biopsy if a clinically suggestive mass is present. Mallory Méndez M.D. ah/:01/28/2017 11:28:21 Lift Mechanic: Lizet OSPINA)(Josué), [facility] letter sent: Normal 1/2 BI-RADS Code: ACR BI-RADS Category 2: Benign
== END | disposition home or self-care (01) ==
LOC: C.MAMM 10:48
PROVIDERS: ATTEND Nurse Practitioner Family
DX: Z12.31 Encounter for screening mammogram for malignant neoplasm of breast (principal); Z85.3 Personal history of malignant neoplasm of breast; Z08 Encounter for follow-up examination after completed treatment for malignant neoplasm

== ENCOUNTER → 2017-02-18 | Outpatient (CLI) | payer BC ==
[2017-02-18 16:57] LABS: BASO % 0.6 %; BASO ABS # 0.05 K/uL (0-0.2); COMPLETE YES; EOS % 2.8 %; HEMATOCRIT 41.5 % (37-47); IG% 0.3 %; LYMPH % 24.5 %; LYMPH ABS # 2.12 K/uL (1.2-3.4); MEAN CELL VOLUME 92.2 fL (80-100); MEAN CORPUSCULAR HEMOGLOBIN 30.7 pg (25-34); MEAN CORPUSCULAR HGB CONC 33.3 g/dl (32-36); MONO % 7.6 %; NEUT % 64.2 %; PLATELET COUNT 287 K/uL (130-400); WHITE BLOOD COUNT 8.65 K/uL (4.8-10.8)
[2017-02-18 17:14] LABS: ALB/GLOB RATIO 0.9 (0.9-2); ALT/SGPT 34 U/L (12-78); AST/SGOT 18 U/L (15-37); BLOOD UREA NITROGEN 31 mg/dl (7-18); BUN/CREATININE RATIO 38.4 (10-20); CALCIUM 9.2 mg/dl (8.5-10.1); CARBON DIOXIDE 27 mmol/L (21-32); CHLORIDE 104 mmol/L (98-107); GLUCOSE 124 mg/dl (70-99); POTASSIUM 3.6 mmol/L (3.5-5.1); SODIUM 137 mmol/L (136-145)
[2017-02-18 17:15] LABS: ALKALINE PHOSPHATASE 105 U/L (45-117)
== END | disposition home or self-care (01) ==
LOC: C.LABBC 15:26
PROVIDERS: ATTEND Nurse Practitioner Family
DX: C50.912 Malignant neoplasm of unspecified site of left female breast (principal)

== ENCOUNTER 2017-03-19 03:28 | Emergency (ER) | payer BC ==
[~2017-03-19] VITALS: Ht 162.6 cm; Wt 86.5 kg
[~2017-03-19 03:28] MED LIST changes: +ALPR-411 PO; -CLB100 PO; +CLB200 PO; +HYDR25TA4 PO; -NRV5 PO; +SERT50TA PO; -cymbalta
[2017-03-19 03:29] VITALS: TEMP 36.8; Ht 162.6 cm; Wt 86.5 kg
[2017-03-19] MEDS ORDERED: ALBUT/IPRATROP 3MG/0.5MG NEB 3 ML VIAL INH STA (03:46)
--- NOTE | 2017-03-19 03:49 | EMERGENCY ROOM VISIT NOTE ---
History Report prepared by Keeley: Rio Haley Under the Supervision of: Dr. Reynaldo Silveira M.D. First contact with patient: 03:38 Chief Complaint: SHORTNESS OF BREATH Stated Complaint: BLAH FEELING--SHORT OF BREATH History of Present Illness The patient is a 76 year old female with a history of hypertension who presents to the Emergency Room with complaints of resolved shortness of breath that started around 7 hours ago. She states that she now feels fine, but earlier she felt that she could not breathe well, and just did "not feel right". Per the patient's daughter, the patient was shaky earlier and her breathing seems more laborious than normal. The patient states that a few days ago she vomited her medications up. She states that she had a recent illness, and finished a Z-pack a few days ago. The patient says that she has no history of anxiety attacks, but does have a history of getting depressed, but she states that nothing would have set off her depression recently. She denies any chest pain, cough, fevers, urinary symptoms, diarrhea, leg swelling, or calf pain. The patient adds that she has not taken her blood pressure medications the last day or 2. She notes no history of blood clots. Source of History: patient, family Onset: Around 7 hours ago Position: other (global - sob) Quality: other (did not "feel right") Timing: resolved Associated Symptoms: + SOB, No fevers, No cough, No chest pain, No diarrhea , No urinary symptoms Note: Associated symptoms: Shaky earlier. Denies leg swelling or calf pain. Review of Systems See HPI for pertinent positives & negatives. A total of 10 systems reviewed and were otherwise negative. Past Medical & Surgical Medical Problems: (1) Breast cancer (2) Depression (3) Diarrhea of presumed infectious origin (4) Hypercholesteremia (5) Hypertension (6) Intractable abdominal pain (7) Intractable nausea and vomiting (8) Sepsis Surgical Problems: (1) History of right knee joint replacement (2) S/P breast lumpectomy Family History Diabetes mellitus FHx: cancer Hypertension Social History Smoking Status: Former Smoker Alcohol Use: none Drug Use: none Marital Status: Housing Status: lives alone Occupation Status: retired Current/Historical Medications Scheduled Aspirin (Aspir-81), 1 TAB PO DAILY Celecoxib (Celebrex), 1 CAP PO DAILY Clonidine Hcl (Catapres), 0.2 MG PO BID Duloxetine HCl (Duloxetine HCl), 30 MG PO BID Gabapentin (Neurontin), 100 MG PO TID Hydrochlorothiazide (Hctz), 1 TAB PO QAM Lisinopril (Zestril), 40 MG PO QAM Pantoprazole (Protonix), 40 MG PO DAILY Sertraline (Zoloft), 1 TAB PO DAILY Varenicline Tartrate (Chantix Starting Month Pa), PO UD Scheduled PRN Amlodipine (Norvasc), 5 MG PO UD PRN for Hypertension Allergies Coded Allergies: Ciprofloxacin (Verified Adverse Reaction, Intermediate, REDNESS ALONG VEIN , 03/19/17) DURING INFUSION PT NOTED TO HAVE MILD ITCHING AND REDNESS AT IV INSERTION AND ABOVE. Atorvastatin (Verified Adverse Reaction, Unknown, muscle pain, 03/19/17) Simvastatin (Verified Adverse Reaction, Unknown, muscle pain, 03/19/17) Physical Exam Vital Signs Date Time Temp Pulse Resp B/P (MAP) Pulse Ox O2 Delivery O2 Flow Rate FiO2 03/19/17 05:02 80 20 162/89 97 03/19/17 03:53 96 Room Air 03/19/17 03:29 36.8 99 20 192/98 96 Room Air Physical Exam GENERAL: Patient is well appearing and in no acute distress. HEENT: No acute trauma, normocephalic atraumatic, mucous membranes moist, no nasal congestion, no scleral icterus. NECK: No stridor, no adenopathy, no meningismus, trachea is midline. LUNGS: No dyspnea. Clear to auscultation and equal bilaterally. No wheeze, no rhonchi. HEART: Regular rate and rhythm. No murmurs, rubs, gallops appreciated. ABDOMEN: Soft, nontender, bowel sounds positive, no masses appreciated, no peritonitis. BACK: No midline tenderness, no CVA tenderness EXTREMITIES: Normal motion all extremities, no cyanosis, no edema. NEUROLOGIC: Alert and oriented, no acute motor or sensory deficits, no focal weakness, cranial nerves grossly intact. SKIN: No rash, no jaundice, no diaphoresis. Medical Decision & Procedures ER Provider Diagnostic Interpretation: X ray results are stated below per my interpretation: Chest: 1 view: No infiltrate, no effusion, normal cardiac border. Laboratory Results 03/19/17 03:45 Red Blood Count 4.58, Mean Corpuscular Volume 90.6, Mean Corpuscular Hemoglobin 31.0, Mean Corpuscular Hemoglobin Concent 34.2, Mean Platelet Volume 8.8, Neutrophils (%) (Auto) 67.1, Lymphocytes (%) (Auto) 17.7, Monocytes (%) (Auto) 11.1, Eosinophils (%) (Auto) 3.2, Basophils (%) (Auto) 0.7, Neutrophils # (Auto ) 6.01, Lymphocytes # (Auto) 1.58, Monocytes # (Auto) 0.99, Eosinophils # (Auto ) 0.29, Basophils # (Auto) 0.06 03/19/17 03:45 Test 03/19/17 03:45 White Blood Count 8.95 K/uL (4.8-10.8) Red Blood Count 4.58 M/uL (4.2-5.4) Hemoglobin 14.2 g/dL (12.0-16.0) Hematocrit 41.5 % (37-47) Mean Corpuscular Volume 90.6 fL (80-100) Mean Corpuscular Hemoglobin 31.0 pg (25-34) Mean Corpuscular Hemoglobin Concent 34.2 g/dl (32-36) Platelet Count 232 K/uL (130-400) Mean Platelet Volume 8.8 fL (7.4-10.4) Neutrophils (%) (Auto) 67.1 % Lymphocytes (%) (Auto) 17.7 % Monocytes (%) (Auto) 11.1 % Eosinophils (%) (Auto) 3.2 % Basophils (%) (Auto) 0.7 % Neutrophils # (Auto) 6.01 K/uL (1.4-6.5) Lymphocytes # (Auto) 1.58 K/uL (1.2-3.4) Monocytes # (Auto) 0.99 K/uL (0.11-0.59) Eosinophils # (Auto) 0.29 K/uL (0-0.5) Basophils # (Auto) 0.06 K/uL (0-0.2) RDW Standard Deviation 43.3 fL (36.4-46.3) RDW Coefficient of Variation 13.1 % (11.5-14.5) Immature Granulocyte % (Auto) 0.2 % Immature Granulocyte # (Auto) 0.02 K/uL (0.00-0.02) Anion Gap 6.0 mmol/L (3-11) Est Creatinine Clear Calc Drug Dose 61.4 ml/min Estimated GFR () 79.4 Estimated GFR (Non- 68.5 BUN/Creatinine Ratio 23.6 (10-20) Calcium Level 9.7 mg/dl (8.5-10.1) Troponin I < 0.015 ng/ml (0-0.045) Laboratory results as reviewed by me. Medications Administered Medications (Trade) Dose Ordered Sig/Chloe Route Start Time Stop Time Status Last Admin Dose Admin Albuterol/ Ipratropium (Duoneb) 3 ml NOW STAT INH 03/19/17 03:46 03/19/17 03:47 DC 03/19/17 03:53 3 ML ECG Indication: SOB/dyspnea Rate (beats per minute): 100 Rhythm: normal sinus Findings: PAC, no acute ischemic change Comparison ECG Date: compared to 09/01/16, mild lateral ST depressions are similar ED Course 0339: The patient was evaluated in room B12B. A complete history and physical exam was performed. 0443: Reevaluated the patient and she feels fine but does not think the breathing treatment helped. She denies any chest pain or shortness of breath. I discussed the fact that a CT would be higher risk than benefit, and she is okay monitoring at home without any other testing at this time. Discussed results and discharge instructions: she verbalized understanding and agreement. The patient is ready for discharge. Medical Decision Differential: Infectious, Reactive Airway Disease, Pneumonia, ACS, Pulmonary Embolism, MSK, GI, Dissection, amongst other etiologies entertained. 76 yr old female arrives complaining of shortness of breath starting around 8 p though no resolved. She is actually quite vague about symptoms and not able to explain them very well. She was just treated with abx for bronchitis over the last week. On exam now she is fine without complaints and has normal vitals other than significant HTN. Admits she had vomiting last few days which she did not take any of BP meds during. Exam, CXR, EKG, Labs all unremarkable. With 6+ hours symptosm this is not ACS. No evidence CHF and lungs are clear without any benefit from neb thus I feel unlikely copd/asthma. History of Breast CA though no PE risks/findings otherwise and I do not feel that CT PE indicated in setting of no symptoms, normal O2 sats and not significantly tachycardic. She was stable for > 1 hour without further issue. On discharge she got to front office agent and reported SOB again. O2 sat at that time normal. Symptoms resolved and I came to discuss with patient. I noted that next step is to do CT scan of chest, though she states she is going to go home and see how she does have home. I noted inability to know if PE or other without further testing, but also that this could all just be due to post infectious symptoms. She is not interested in further testing at this time and will be going home with her daughter. I made it very clear she may return at any time if worsening or other concerns. Of note I very much discussed the importance of RTED if worsening or other concerns. Medication Reconcilliation Current Medication List: was personally reviewed by me Blood Pressure Screening Patient's blood pressure: Elevated blood pressure Blood pressure disposition: Referred to PCP Will take medications this morning. Impression Primary Impression: Shortness of breath Additional Impression: Hypertension Scribe Attestation The scribe's documentation has been prepared under my direction and personally reviewed by me in its entirety. I confirm that the note above accurately reflects all work, treatment, procedures, and medical decision making performed by me. Departure Information Dispostion Home / Self-Care Referrals RV. Devi MD (PCP) Patient Instructions ED Dyspnea Shortness of Breath, [facility] Problem Qualifiers
[2017-03-19 03:59] LABS: BASO % 0.7 %; BASO ABS # 0.06 K/uL (0-0.2); EOS % 3.2 %; EOS ABS # 0.29 K/uL (0-0.5); HEMATOCRIT 41.5 % (37-47); HEMOGLOBIN 14.2 g/dL (12.0-16.0); IG# 0.02 K/uL (0.00-0.02); LYMPH % 17.7 %; LYMPH ABS # 1.58 K/uL (1.2-3.4); MEAN CELL VOLUME 90.6 fL (80-100); MEAN CORPUSCULAR HGB CONC 34.2 g/dl (32-36); MEAN PLATELET VOLUME 8.8 fL (7.4-10.4); MONO % 11.1 %; MONO ABS # 0.99 K/uL (0.11-0.59); NEUT % 67.1 %; NEUT ABS # 6.01 K/uL (1.4-6.5); PLATELET COUNT 232 K/uL (130-400); RED CELL DISTRIBUTION WIDTH CV 13.1 % (11.5-14.5); RED CELL DISTRIBUTION WIDTH SD 43.3 fL (36.4-46.3); WHITE BLOOD COUNT 8.95 K/uL (4.8-10.8)
[2017-03-19 04:15] LABS: BLOOD UREA NITROGEN 20 mg/dl (7-18); CALCIUM 9.7 mg/dl (8.5-10.1); CARBON DIOXIDE 22 mmol/L (21-32); CREATININE 0.83 mg/dl (0.60-1.20); GLUCOSE 111 mg/dl (70-99); POTASSIUM 3.9 mmol/L (3.5-5.1); SODIUM 139 mmol/L (136-145)
[2017-03-19] MEDS ORDERED: AMLO-110 PO (04:25)
[2017-03-19] MEDS ORDERED: CYM30 PO (04:25)
[2017-03-19] MEDS ORDERED: VARE1PAK15 PO (04:25)
[2017-03-19] MEDS ORDERED: ONDANSETRON HOME PACK 4MG OD TAB PO ONE (04:45)
[2017-03-19 05:02] VITALS: BP 162/89; PULSE 80; O2SAT 97
--- NOTE | 2017-03-19 06:51 | DIAGNOSTIC IMAGING REPORT ---
CHEST ONE VIEW PORTABLE CLINICAL HISTORY: SHOB dyspnea COMPARISON STUDY: 08/23/2016 FINDINGS: Mild emphysematous change. Slight chronic interstitial prominence. No focal infiltrate. Diaphragms are somewhat flattened. IMPRESSION: Chronic and emphysematous change. No acute process. The above report was generated using voice recognition software. It may contain grammatical, syntax or spelling errors. Electronically signed by: Stefan Hernandez M.D. 03/19/2017 6:50 AM Dictated Date/Time: 03/19/2017 6:48 AM
== END 2017-03-19 05:03 | disposition home or self-care (01) ==
LOC: C.EDB 03:29
DX: R06.02 Shortness of breath (principal); I10 Essential (primary) hypertension; Z79.82 Long term (current) use of aspirin; Z87.891 Personal history of nicotine dependence; Z83.3 Family history of diabetes mellitus; Z82.49 Family history of ischemic heart disease and other diseases of the circulatory system

== ENCOUNTER → 2017-03-24 | Outpatient (CLI) | payer BC ==
[~2017-03-24] MED LIST changes: -ALPR-411 PO; +AMLO-110 PO; +CYM30 PO; +VARE1PAK15 PO
== END | disposition home or self-care (01) ==
LOC: C.LABBC 13:00
PROVIDERS: ATTEND Internal Medicine
DX: N39.0 Urinary tract infection, site not specified (principal)

== ENCOUNTER → 2017-04-02 | Outpatient (CLI) | payer BC ==
[~2017-04-02] MED LIST changes: -SERT50TA PO; -VARE1PAK15 PO
== END | disposition home or self-care (01) ==
LOC: C.LABBC 13:45
PROVIDERS: ATTEND Internal Medicine
DX: N39.0 Urinary tract infection, site not specified (principal)

== ENCOUNTER → 2017-06-23 | Outpatient (CLI) | payer BC ==
--- NOTE | 2017-06-23 16:08 | DIAGNOSTIC IMAGING REPORT ---
LUMBAR SPINE W/O CONTRAST CLINICAL HISTORY: 76 years-old Female presenting with DJD LUMBAR SPINE,LOW BACK PAIN,RADICULOPATHY, history of osteoporosis and breast cancer, bilateral leg weakness, no history of trauma. TECHNIQUE: Multisequence, multiplanar MR imaging of the lumbar spine was performed without the use of intravenous contrast. IV contrast: None. COMPARISON: 11/06/2016. FINDINGS: Localizer images: Unremarkable. Normal lumbar lordosis. Fatty endplate changes noted anteriorly at L4-5. Bony edema noted at the endplates of L1-2 on the likely degenerative in etiology. No abnormal fluid signal intensity within the L1-2 disc space. Less extensive bony edema combined with sclerosis evident at the L2-3 disc space. The remainder of the bone marrow signal intensity is normal. Vertebral body heights are maintained. 3-4 mm of grade 1 anterolisthesis of L4 on L5 is grossly unchanged from prior. Slight levocurvature of the lumbar spine. Diffuse intervertebral disc desiccation and height loss. Multilevel degenerative changes further detailed below: L1-2: Disc bulge, ligamentum flavum thickening, and facet arthropathy result in circumferential narrowing of the thecal sac though CSF signal intensity is maintained. Abutment of the exiting L1 nerve roots by the disc bulge. Severe right and moderate left neural foraminal narrowing. L2-3: Disc bulge, ligamentum flavum hypertrophy, and facet arthropathy result in circumferential narrowing of the thecal sac though CSF signal intensity is maintained. Mass effect on the bilateral exiting L2 nerve root secondary to disc bulge. Moderate bilateral neural foraminal narrowing. L3-4: Disc bulge and ligamentum flavum hypertrophy with left greater than right facet arthropathy results in circumferential effacement of the thecal sac though CSF signal intensity is maintained. Abutment of the bilateral exiting L3 nerve root secondary to the disc bulge. Mild to moderate right and moderate left neural foraminal narrowing. L4-5: Disc bulge, ligamentum flavum thickening, and facet arthropathy result in complete effacement of CSF signal intensity and severe crowding of the cauda equina. Mass effect on the bilateral exiting L4 nerve roots noted. Moderate bilateral neural foraminal narrowing. L5-S1: Facet arthropathy results in moderate bilateral neural foraminal narrowing. Spinal cord is in good position above L1. Cauda equina crowded as mentioned above greatest at L4-5. The cauda equina demonstrates a buckled morphology below this level suggesting impingement. Mild fatty atrophy of paraspinal musculature. No paraspinal edema. IMPRESSION: 1. Multilevel degenerative changes with severe spinal canal stenosis at L4-5, which is unchanged in appearance since the prior exam. Findings suggest chronic impingement. 2. Multilevel disc bulges and degenerative change results in mass effect or abutment of exiting nerve roots at nearly every level further detailed above. Periportal degrees of significant neural foraminal narrowing. These findings are similar to prior exam. Electronically signed by: Lester Mariano M.D. 06/23/2017 4:06 PM Dictated Date/Time: 06/23/2017 3:58 PM
== END | disposition home or self-care (01) ==
LOC: C.MRIBC 14:53
PROVIDERS: ATTEND Internal Medicine
DX: M47.27 Other spondylosis with radiculopathy, lumbosacral region (principal); M48.061 Spinal stenosis, lumbar region without neurogenic claudication; M51.26 Other intervertebral disc displacement, lumbar region; F43.21 Adjustment disorder with depressed mood; I73.9 Peripheral vascular disease, unspecified; M81.0 Age-related osteoporosis without current pathological fracture; G47.9 Sleep disorder, unspecified; R26.9 Unspecified abnormalities of gait and mobility; R93.7 Abnormal findings on diagnostic imaging of other parts of musculoskeletal system

== ENCOUNTER → 2017-07-30 | Outpatient (CLI) | payer BC ==
--- NOTE | 2017-07-30 18:56 | DIAGNOSTIC IMAGING REPORT ---
LUMBAR SPINE 7 VIEWS with flexion and extension HISTORY: M54.5 Low back [id number] COMPARISON: Lumbar spine MRI 06/23/2017. FINDINGS: There is no fracture. 4 mm of anterolisthesis of L4 on L5, unchanged. Moderate to advanced facet degenerative changes within the mid to lower lumbar spine. Severe disc space narrowing at L1-L2 and L2-L3. Moderate disc space narrowing at L3-L4, L4-L5, and L5-S1. This remains unchanged. The bones are osteopenic. Minimal levoscoliosis. IMPRESSION: 1. No fractures within the lumbar spine. 2. No change in the grade I anterolisthesis of L4 and L5. The alignment of the lumbar spine remains unchanged throughout flexion and extension. 3. Moderate to advanced degenerative changes within the lumbar spine are again noted. Electronically signed by: Konrad Casas M.D. 07/30/2017 6:55 PM Dictated Date/Time: 07/30/2017 6:51 PM
== END | disposition home or self-care (01) ==
LOC: C.RAD1850 16:52
PROVIDERS: ATTEND Internal Medicine
DX: M47.896 Other spondylosis, lumbar region (principal)

== ENCOUNTER → 2017-10-06 | Outpatient (CLI) | payer BC ==
[~2017-10-06] MED LIST changes: +ALPR-411 PO; -AMLO-110 PO; +AMLO5TAB3 PO; +CHOL1000 PO; -CLB200 PO; -CLON0.2T PO; +CYM/30 PO; -CYM30 PO; -GABA-112 PO; -PANT40TA PO
== END | disposition home or self-care (01) ==
LOC: C.LABBC 12:34
PROVIDERS: ATTEND Internal Medicine
DX: M54.5 Low back pain (principal)

== ENCOUNTER → 2017-10-27 | Outpatient (CLI) | payer BC | END | disposition home or self-care (01) | LOC: C.LABBC 14:49 | PROVIDERS: ATTEND Physician Assistant | DX: M54.5 Low back pain (principal); R39.9 Unspecified symptoms and signs involving the genitourinary system ==

== ENCOUNTER → 2017-10-29 | Outpatient (CLI) | payer BC ==
--- NOTE | 2017-10-29 15:15 | DIAGNOSTIC IMAGING REPORT ---
L-SPINE MIN 4 VIEWS ROUTINE CLINICAL HISTORY: Lower back pain. COMPARISON: Lumbar spine MRI June 23, 2017. FINDINGS: Mild levoscoliosis of the lumbar spine is noted. There is 4 mm retrolisthesis of L4 and L5. There is minimal anterolisthesis of L5 on S1. Slight retrolisthesis of L1 on L2 is noted. There is severe disc space narrowing at L1-L2 and L2-L3 with moderate disc space narrowing and vacuum disc phenomenon at L5-S1. There is no fracture or suspicious lesion. Severe multilevel facet arthrosis is present. IMPRESSION: 1. No lumbar spine fracture. 2. Moderate to severe multilevel degenerative disc disease and facet arthrosis of the lumbar spine. 2. Mild levoscoliosis of the lumbar spine. Electronically signed by: Ephraim Breaux M.D. 10/29/2017 3:14 PM Dictated Date/Time: 10/29/2017 3:12 PM
== END | disposition home or self-care (01) ==
LOC: C.RAD1850 15:01
PROVIDERS: ATTEND Nurse Practitioner Adult Health
DX: M51.36 Other intervertebral disc degeneration, lumbar region (principal); M47.816 Spondylosis without myelopathy or radiculopathy, lumbar region; M48.00 Spinal stenosis, site unspecified

== ENCOUNTER → 2017-11-03 | Outpatient (CLI) | payer BC | END | disposition home or self-care (01) | LOC: C.LABBC 14:29 | PROVIDERS: ATTEND Nurse Practitioner Adult Health | DX: R39.9 Unspecified symptoms and signs involving the genitourinary system (principal) ==

== ENCOUNTER → 2017-11-04 | Outpatient (CLI) | payer BC ==
[2017-11-04 17:33] LABS: BASO % 0.8 %; BASO ABS # 0.08 K/uL (0-0.2); EOS % 3.3 %; EOS ABS # 0.31 K/uL (0-0.5); HEMATOCRIT 42.6 % (37-47); HEMOGLOBIN 14.4 g/dL (12.0-16.0); IG# 0.03 K/uL (0.00-0.02); LYMPH % 27.7 %; LYMPH ABS # 2.63 K/uL (1.2-3.4); MEAN CELL VOLUME 90.6 fL (80-100); MEAN CORPUSCULAR HEMOGLOBIN 30.6 pg (25-34); MEAN CORPUSCULAR HGB CONC 33.8 g/dl (32-36); MEAN PLATELET VOLUME 9.8 fL (7.4-10.4); MONO % 8.7 %; MONO ABS # 0.83 K/uL (0.11-0.59); NEUT % 59.2 %; NEUT ABS # 5.61 K/uL (1.4-6.5); PLATELET COUNT 377 K/uL (130-400); RED CELL DISTRIBUTION WIDTH CV 13.7 % (11.5-14.5); RED CELL DISTRIBUTION WIDTH SD 45.5 fL (36.4-46.3); WHITE BLOOD COUNT 9.49 K/uL (4.8-10.8)
[2017-11-04 18:12] LABS: BLOOD UREA NITROGEN 23 mg/dl (7-18); CALCIUM 10.2 mg/dl (8.5-10.1); CARBON DIOXIDE 31 mmol/L (21-32); CREATININE 0.92 mg/dl (0.60-1.20); GLUCOSE 87 mg/dl (70-99); POTASSIUM 3.4 mmol/L (3.5-5.1); SODIUM 138 mmol/L (136-145)
== END | disposition home or self-care (01) ==
LOC: C.LAB1850 16:30
PROVIDERS: ATTEND Nurse Practitioner Adult Health
DX: F32.9 Major depressive disorder, single episode, unspecified (principal); I10 Essential (primary) hypertension; M54.5 Low back pain; F41.9 Anxiety disorder, unspecified

== ENCOUNTER 2018-11-06 08:45 | Inpatient (IN) ==
--- NOTE | 2018-11-06 09:12 | Emergency Department Note ---
ED Visit Note I assisted attending Dr. Gillette in the care of this patient. Please see attending's note for details of the visit. Gina Callahan MD Neck Band Operator PGY-3 . Resident Activity Tracking Resident Involvement: Resident Care Provided Care Provided: Adult ED
[2018-11-06] MEDS ORDERED: SODIUM CHLORIDE 0.9% 1000ML 1,000 ML IV SCH (09:15)
[2018-11-06] MEDS ORDERED: ALBUT/IPRATROP 3MG/0.5MG NEB 3 ML VIAL NEB ONE (09:24)
--- NOTE | 2018-11-06 09:28 | XRay Report ---
XR chest 1V portable CLINICAL HISTORY: Chest pain. COMPARISON STUDY: Chest radiograph November 03, 2018. FINDINGS: Lung volumes are normal. There may be minimal right basilar opacity. There is no pneumothor ax or pleural effusion. Cardiac size is normal. Mediastinal contours are normal. There is no evidence for pulmonary edema. IMPRESSION: Possible minimal right basilar opacity. Electronically signed by: Ephraim Breaux M.D. 11/06/2018 9:27 AM
[2018-11-06 09:52] LABS: Alanine Aminotransferase 41 U/L (12-78); Albumin Globulin Ratio 0.9 (0.9-2); Albumin Level 3.2 gm/dl (3.4-5.0); Alkaline Phosphatase 116 U/L (45-117); BUN Creatinine Ratio 19.4 (10-20); Bilirubin,Total 0.8 mg/dl (0.2-1); Blood Urea Nitrogen 18 mg/dl (7-18); Calcium 9.6 mg/dl (8.5-10.1); Carbon Dioxide 27 mmol/L (21-32); Chloride 103 mmol/L (98-107); Creatine Kinase MB 1.8 ng/ml (0.5-3.6); Creatinine Clr Calc Pharmacy 54.6 ml/min; Est GFR (African American) 69.6; Est GFR (Non-African American) 60.1; Globulin 3.5 gm/dl (2.5-4.0); Glucose 116 mg/dl (70-99); Lipase 54 U/L (73-393); NT Pro B Type Natriuretic Pept 90 pg/ml (0-1800); Sodium 135 mmol/L (136-145); Total Protein 6.7 gm/dl (6.4-8.2); Troponin I < 0.015 ng/ml (0-0.045)
[2018-11-06] MEDS ORDERED: POTASSIUM CHLORIDE 20 MEQ TABCR PO STA (09:53)
[2018-11-06 10:03] LABS: iSTAT Creatinine 0.8 mg/dl (0.6-1.3); iSTAT Hemoglobin 13.6 g/dl (12.0-16.0); iSTAT Ionized Calcium 1.13 mmol/l (1.12-1.32); iSTAT Potassium 3.2 mEq/L (3.3-5.0)
[2018-11-06] MEDS ORDERED: OPTIRAY 320 125ml IV PRN (10:05)
--- NOTE | 2018-11-06 10:24 | CT Scan Report ---
CT ANGIOGRAPHY OF THE CHEST, PULMONARY EMBOLUS PROTOCOL CLINICAL HISTORY: Chest pain. Evaluate for pulmonary embolus. COMPARISON STUDY: Chest radiograph November 03, 2018 and November 06, 2018. TECHNIQUE: Following IV administration of 120 mL of Optiray-320, helical axial images of the chest we re obtained utilizing the pulmonary embolus protocol. Maximal intensity projections and sagittal and coronal reformats were viewed on an independent 3D workstation. IV contrast was administered withou t complication. Automated exposure control was utilized for the study. A dose lowering technique wa s utilized adhering to the principles of ALARA. CT DOSE: 369.62 mGy.cm FINDINGS: No pulmonary emboli are identified. There is moderate plaque within the thoracic aorta wit hout evidence for dissection. The size of the heart is normal. No enlarged thoracic lymph nodes are p resent. Mild emphysema is present. There is no consolidation to suggest pneumonia. No pneumothorax or pleural effusion is noted. Subpleural left upper lobe opacity reflects scarring. There are postopera tive findings within the left breast. Left adrenal nodularity is unchanged. This is benign. IMPRESSION: 1. No pulmonary emboli identified. 2. No acute intrathoracic findings. 3. Mild emphysema. 4. Moderate coronary artery calcification. Electronically signed by: Ephraim Breaux M.D. 11/06/2018 10:23 AM
[2018-11-06] MEDS ORDERED: methylPREDNISolone 125 MG/2 ML VIAL IV STA (10:46)
[2018-11-06] MEDS ORDERED: LEVOFLOXACIN/D5W 750 MG/150 ML BAG IV SCH (11:00)
[2018-11-06] MEDS ORDERED: ERTAPENEM SODIUM 10 ML IV STA (11:32)
[2018-11-06 11:37] LABS: Appearance Urine Clear (Clear); Bacteria Urine Automated Negative (Negative); Bilirubin Urine Negative (Negative); Blood Urine Negative (Negative); Cast Urine Automated 0 /lpf (0-5); Color Urine Yellow; Epithelial Cell Urine Auto 20-30 /lpf (0-5); Glucose Urine UA Negative (Negative); Ketones Urine Negative (Negative); Leukocyte Esterase Urine 2+ (Negative); Nitrite Urine Negative (Negative); Protein Urine Negative (Negative); RBC Urine Automated 0-4 /hpf (0-4); Specific Gravity Urine 1.036 (1.000-1.030); Urobilinogen Urine Negative (Negative); WBC Urine Automated >30 /hpf (0-5); pH Urine 6.5 (4.5-7.5)
[2018-11-06 12:36] LABS: Basophils # (auto) 0.03 K/uL (0-0.2); Basophils % (auto) 0.2 %; Eosinophils # (auto) 0.14 K/uL (0-0.5); Eosinophils % (auto) 0.9 %; Hematocrit (blood only) 41.9 % (37-47); Hemoglobin 14.6 g/dL (12.0-16.0); Immature Granulocytes # (auto) 0.03 K/uL (0.00-0.02); Immature Granulocytes % (auto) 0.2 %; Lymphocytes # (auto) 2.97 K/uL (1.2-3.4); Lymphocytes % (auto) 19.3 %; Mean Corpuscular Hemoglobin 31.5 pg (25-34); Mean Corpuscular Hgb Conc 34.8 g/dL (32-36); Mean Corpuscular Volume 90.3 fL (80-100); Monocytes # (auto) 0.56 K/uL (0.11-0.59); Monocytes % (auto) 3.6 %; Neutrophils # (auto) 11.63 K/uL (1.4-6.5); Neutrophils % (auto) 75.8 %; Platelet Count 283 K/uL (130-400); RDW Coefficient of Variation 13.9 % (11.5-14.5); RDW Standard Deviation 46.2 fL (36.4-46.3); Red Blood Count 4.64 M/uL (4.2-5.4); White Blood Count 15.36 K/uL (4.8-10.8)
[2018-11-06] MEDS ORDERED: ONDANSETRON INJ 2 MG/ML 2 ML VIAL IV PRN (14:02)
[2018-11-06] MEDS ORDERED: ACETAMINOPHEN 325 MG TAB PO PRN (14:02)
[2018-11-06] MEDS ORDERED: ALBUT/IPRATROP 3MG/0.5MG NEB 3 ML VIAL NEB PRN (14:02)
[2018-11-06] MEDS: OXYCODONE/ACETAMINOPHEN 5mg/325mg TAB PO SCH ×2 (15:25→21:37)
--- NOTE | 2018-11-06 15:36 | History & Physical Report ---
Date of Service November 06, 2018 Assessment & Plan (1) COPD exacerbation: no true diagnosis of COPD but she has emphysematous changes on CT chest lacks any other diagnosis: no PE, no heart failure, no pneumonia on imaging will treat with Solu Medrol 40mg IV q12 and Duoneb QID and q2 PRN no role for antibiotics given lack of purulent symptoms would likely benefit from starting Spiriva on discharge should have a follow up with pulmonology and get PFT when her breathing is at baseline (2) Acute respiratory failure with hypoxia: increased work of breathing at rest, oxygen desaturation to mid 80's on room air 2L NC for time being should improve with treatment of COPD exacerbation (3) Hypokalemia: mild at 3.2 will order 20mEq BID, repeat tomorrow (4) UTI (urinary tract infection): urine culture from 11/03 growing E coli that is ESBL sensitive to Ertapenem complete 7 days total would use Levaquin but she has confirmed allergy to Cipro (5) Hypertension: continue on home BP medications, BP is stable (6) Depression: continue sertraline, PRN Xanax (7) Gastritis: continue on Protonix History of Present Illness Chief Complaint: I feel short of breath Primary Care Provider: Annette Dowd MD 77 yo female with a history of HTN, depression/anxiety and GERD as well as smoking history, presents to the ED with 24 hours of shortness of breath and chills. She noticed that she was feeling more short of breath yesterday. She said the symptoms came on rapidly. No recent URI symptoms such as runny nose or sore throat. She does not really endorse having a cough, no sputum production. No chest pain or pressure. She admits that she is short of breath at rest and more short of breath when she exerts herself. She does not have to walk far to get really short of breath. She says she is really cold and shivering, no fevers. Her appetite is diminished, did not eat much yesterday, nothing this morning. She smoked all her life, she says maybe 1/2 ppd and she quit about one year ago. She does not carry a known diagnosis of COPD or emphysema but she says "I would not be suprised if I had it." She received nebulizers and Solu Medrol in the ED, she did not note much difference in her symptoms. She was experiencing some UTI symptoms a few days ago. Urine culture noted to have grown E coli ESBL. She was on Macrobid as that for outpatient. Again, no history of COPD. She never had PFT to her knowledge. CXR was normal in the ED. CTA chest negative for PE, no pulmonary edema, no infiltrate to suggest pneumonia. Vitals stable except she is slightly hypoxic, dropped to mid 80's on room air. Allergies Allergy/AdvReac Type Severity Reaction Status Date / Time Cipro AdvReac Intermediate REDNESS Verified 09/24/17 08:08 ALONG VEIN ciprofloxacin AdvReac Intermediate REDNESS Verified 11/06/18 10:53 ALONG VEIN atorvastatin AdvReac Unknown muscle pain Verified 11/06/18 10:53 simvastatin AdvReac Unknown muscle pain Verified 11/06/18 10:53 Home Medications Home Medications Medication Instructions Recorded Confirmed Type alprazolam 0.25 mg tablet 0.25 mg PO DAILY PRN #30 tab 11/03/18 11/06/18 Rx amlodipine 5 mg tablet 5 mg PO DAILY PRN #90 tab 11/03/18 11/06/18 History oxycodone-acetaminophen 5 mg-325 1 tab PO Q8H #21 tab 11/03/18 11/06/18 Rx mg tablet pantoprazole 40 mg tablet,delayed 40 mg PO BID #60 tab 11/03/18 11/06/18 Rx release nitrofurantoin macrocrystal 100 mg 100 mg PO BID 10 Days #20 cap 11/05/18 11/06/18 Rx capsule hydrochlorothiazide 25 mg PO QAM 11/06/18 11/06/18 History lisinopril 40 mg PO QAM 11/06/18 11/06/18 History sertraline 50 mg PO QAM 11/06/18 11/06/18 History Past Med/Surg History Medical History Dehydration Gait disturbance (Chronic) Hearing decreased (Chronic) History of malignant neoplasm of breast (Chronic) History of nicotine dependence (Chronic) Intermittent claudication (Chronic) 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) Low back pain (Chronic) Osteoporosis (Chronic) Prediabetes (Chronic) Right knee pain (Chronic) Sleep disturbance (Chronic) Spinal stenosis (Chronic) Statin intolerance (Chronic) Stenosis of iliac artery (Chronic) Vitamin D deficiency disease (Chronic) Breast cancer (Chronic 12/26/13) "Abnormal left breast mammogram Status post ultrasound-guided biopsies 10/06/2013 that revealed benign status post left breast excisional biopsy 12/02/2013 revealing infiltrating ductal carcinoma estrogen receptor positive, progesterone receptor positive, 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, stage pT2 Status post reexcision and sentinel lymph node biopsy 12/26/2013 pN0 (i+) Oncotype DX score of 11 Status post completion of radiation therapy 04/13/2014 received 5006 cGy utilizing hypo-fractionation Required post radiation wound care " Hypercholesteremia (Chronic) Hypertension (Chronic) Depression (Chronic) Hypercalcemia (Chronic) Elevated alkaline phosphatase level (Chronic) Gastritis (Chronic) Surgical History H/O lumbosacral spine surgery (Chronic) S/P radiotherapy (Chronic) Status post right partial knee replacement (Chronic) S/P breast lumpectomy (Chronic) History of breast lump/mass excision History of partial mastectomy of left breast Hx of dilation and curettage Hx of oral surgery Family History Daughter Breast cancer Mother Aortic aneurysm Renal failure Brother Aortic aneurysm Prostate cancer Father Aortic aneurysm Hypertension Pure hypercholesterolemia Grandmother (Maternal) Colon cancer Unknown Diabetes Social History Preferred Language: Nepali Communication Ability: Effective Beliefs That Will Affect Care: None marital status: / Current Living Situation: Alone Current Living Situation Comment: Daughter living with mother temporarily. current occupational status: retired Other Information That Helps Us Care for You: No Feels Safe at Home: Yes Safety Concerns: Feels Safe At This Time Smoking Status: Former smoker Tobacco Type: cigarettes ; Smoking End Date: Stopped approximately one year ago, but has smoked over the last wk. ; Tobacco Cessation Education Requested by Patient: No Hx Alcohol Use: No Hx Substance Use: No Review of Systems Review of Systems: All systems reviewed & are unremarkable except as noted in HPI & below Physical Exam Constitutional: WD/WN, vitals as above Eyes: PERRL, conjunctivae normal, anicteric sclerae ENMT: external ear and nose normal, oropharynx normal Neck: trachea midline, no thyromegaly Respiratory: normal respiratory effort; no respiratory distress Auscultation: lungs clear to auscultation bilaterally and + diminished lung sounds; no wheezes Cardiovascular: RRR, no murmur, no edema Gastrointestinal (Abdomen): normal bowel sounds, soft, nontender, no hepatosplenomegaly Musculoskeletal: no cyanosis or clubbing, extremities motor strength 5/5 Skin: no rashes, warm and dry Neurologic: patellar DTR's 2+ bilat, sensation intact and PERRL, EOMI, accommodation nl, no face palsy, no dysarthria Psychiatric: A+Ox3, euthymic affect Lymphatic: no cervical or axillary lymphadenopathy Results & Data Vital Signs (Past 12 Hours) Vital Signs Temp Pulse Pulse Resp BP BP Pulse Ox 11/06/18 14:00 37.0 C 71 20 136/75 93 11/06/18 13:10 93 H 22 93 11/06/18 13:00 98 H 21 130/83 93 11/06/18 12:50 96 H 21 95 11/06/18 12:40 109 H 20 95 11/06/18 12:30 104 H 20 110/55 L 95 11/06/18 12:20 109 H 19 94 11/06/18 12:10 102 H 21 87 L 11/06/18 12:01 102 H 17 105/60 11/06/18 12:00 100 H 20 94 11/06/18 11:50 99 H 19 88 L 11/06/18 11:40 101 H 18 91 11/06/18 11:30 104 H 20 128/61 91 11/06/18 11:20 113 H 17 84 L 11/06/18 11:10 106 H 17 11/06/18 11:00 104 H 23 127/72 97 11/06/18 10:50 101 H 24 11/06/18 10:40 98 H 16 11/06/18 10:30 91 H 21 151/91 H 96 11/06/18 10:26 90 22 95 11/06/18 10:20 94 H 28 H 88 L 11/06/18 10:12 94 H 16 137/85 94 11/06/18 09:31 84 21 117/53 L 98 11/06/18 09:00 93 H 20 129/85 95 11/06/18 08:54 95 11/06/18 08:53 95 11/06/18 08:51 37.0 C 104 H 20 134/102 H 92 Laboratory Results Laboratory Results - last 24 hr 11/06/18 11/06/18 11/06/18 09:14 09:15 09:15 WBC Cancelled RBC Cancelled Hgb Cancelled POC Hgb Hct Cancelled POC Hct MCV Cancelled MCH Cancelled MCHC Cancelled RDW Std Deviation Cancelled RDW Coeff of [place] Cancelled Plt Count Cancelled MPV Cancelled Immature Gran % (Auto) Cancelled Neut % (Auto) Cancelled Lymph % (Auto) Cancelled [place] % (Auto) Cancelled Eos % (Auto) Cancelled Baso % (Auto) Cancelled Immature Gran # (Auto) Cancelled Neut # (Auto) Cancelled Lymph # (Auto) Cancelled [place] # (Auto) Cancelled Eos # (Auto) Cancelled Baso # (Auto) Cancelled Absolute Nucleated RBC Cancelled Nucleated RBC % (auto) Cancelled Neutrophils % (Manual) Cancelled Band Neutrophils % Cancelled Lymphocytes % (Manual) Cancelled Prolymphocyte % Cancelled Reactive Lymphs % (Man) Cancelled Monocytes % (Manual) Cancelled Eosinophils % (Manual) Cancelled Basophils % (Manual) Cancelled Metamyelocytes % (Man) Cancelled Myelocytes % (Man) Cancelled Promyelocytes % (Man) Cancelled Blast Cells % (Manual) Cancelled Plasma Cell % (Manual) Cancelled Other Cells % Cancelled Nucleated RBC % Cancelled Neutrophils # (Manual) Cancelled Band Neutrophils # Cancelled Total Absolute Neuts Cancelled Lymphocytes # (Manual) Cancelled Prolymphocyte # Cancelled Reactive Lymphs # Cancelled Total Abs Lymphocytes Cancelled Monocytes # (Manual) Cancelled Eosinophils # (Manual) Cancelled Basophils # (Manual) Cancelled Metamyelocytes # (Man) Cancelled Myelocytes # (Manual) Cancelled Promyelocytes # (Man) Cancelled Blast Cells # (Man) Cancelled Plasma Cell # (Manual) Cancelled Other Cells # Cancelled Nucleated RBCs # (Man) Cancelled Hypersegmented Neuts Cancelled Hyposegmented Neuts Cancelled Hypogranular Neuts Cancelled Large Granular Lymphs Cancelled # Lrg Granular Lymphs Cancelled Hairy Cells Cancelled Smudge Cells Cancelled Toxic Granulation Cancelled Toxic Vacuolation Cancelled Dohle Bodies Cancelled Cherelle Rods Cancelled Platelet Estimate Cancelled Hypogranular Platelets Cancelled Clumped Platelets Cancelled Giant Platelets Cancelled Platelet Satelliting Cancelled RBC Morphology Cancelled Polychromasia Cancelled Hypochromasia Cancelled Poikilocytosis Cancelled Basophilic Stippling Cancelled Anisocytosis Cancelled Microcytosis Cancelled Macrocytosis Cancelled Spherocytes Cancelled Pappenheimer Bodies Cancelled Sickle Cells Cancelled Target Cells Cancelled Tear Drop Cells Cancelled Ovalocytes Cancelled Stomatocytes Cancelled [place] Bodies Cancelled Echinocytes Cancelled Acanthocytes (Spur) Cancelled Rouleaux Cancelled RBC Agglutinates Cancelled Schistocytes Cancelled RBC Morph Comment Cancelled Sezary Cell Cancelled PT INR APTT PTT Ratio POC Sodium Sodium 135 L POC Potassium Potassium POC Chloride Chloride 103 Carbon Dioxide 27 POC Total CO2 Anion Gap 5.0 POC Anion Gap POC BUN BUN 18 Creatinine 0.92 POC Creatinine Est Cr Clr Drug Dosing 54.6 Est GFR ( Amer) 69.6 Est GFR (Non-Af Amer) 60.1 BUN/Creatinine Ratio 19.4 Glucose 116 H POC Glucose (other) Calcium 9.6 POC Ioniz Calcium Emil Total Bilirubin 0.8 AST ALT 41 Alkaline Phosphatase 116 Total Creatine Kinase CK-MB (CK-2) 1.8 CK/CKMB % Calc TNP Troponin I < 0.015 NT-Pro-B Natriuret Pep 90 Total Protein 6.7 Albumin 3.2 L Globulin 3.5 Albumin/Globulin Ratio 0.9 Lipase 54 L Urine Color Yellow Urine Appearance Clear Urine pH 6.5 Ur Specific [place] 1.036 H Urine Protein Negative Urine Glucose (UA) Negative Urine Ketones Negative Urine Blood Negative Urine Nitrite Negative Urine Bilirubin Negative Urine Urobilinogen Negative Ur Leukocyte Esterase 2+ H Urine WBC (Auto) >30 H Urine RBC (Auto) 0-4 U Hyaline Cast (Auto) 0 U Epithel Cells (Auto) 20-30 H Urine Bacteria (Auto) Negative 11/06/18 11/06/18 11/06/18 09:48 12:23 15:05 WBC 15.36 H RBC 4.64 Hgb 14.6 POC Hgb 13.6 Hct 41.9 POC Hct 40 MCV 90.3 MCH 31.5 MCHC 34.8 RDW Std Deviation 46.2 RDW Coeff of Hipolito 13.9 Plt Count 283 MPV 9.0 Immature Gran % (Auto) 0.2 Neut % (Auto) 75.8 Lymph % (Auto) 19.3 [place] % (Auto) 3.6 Eos % (Auto) 0.9 Baso % (Auto) 0.2 Immature Gran # (Auto) 0.03 H Neut # (Auto) 11.63 H Lymph # (Auto) 2.97 [place] # (Auto) 0.56 Eos # (Auto) 0.14 Baso # (Auto) 0.03 Absolute Nucleated RBC Nucleated RBC % (auto) Neutrophils % (Manual) Band Neutrophils % Lymphocytes % (Manual) Prolymphocyte % Reactive Lymphs % (Man) Monocytes % (Manual) Eosinophils % (Manual) Basophils % (Manual) Metamyelocytes % (Man) Myelocytes % (Man) Promyelocytes % (Man) Blast Cells % (Manual) Plasma Cell % (Manual) Other Cells % Nucleated RBC % Neutrophils # (Manual) Band Neutrophils # Total Absolute Neuts Lymphocytes # (Manual) Prolymphocyte # Reactive Lymphs # Total Abs Lymphocytes Monocytes # (Manual) Eosinophils # (Manual) Basophils # (Manual) Metamyelocytes # (Man) Myelocytes # (Manual) Promyelocytes # (Man) Blast Cells # (Man) Plasma Cell # (Manual) Other Cells # Nucleated RBCs # (Man) Hypersegmented Neuts Hyposegmented Neuts Hypogranular Neuts Large Granular Lymphs # Lrg Granular Lymphs Hairy Cells Smudge Cells Toxic Granulation Toxic Vacuolation Dohle Bodies Cherelle Rods Platelet Estimate Hypogranular Platelets Clumped Platelets Giant Platelets Platelet Satelliting RBC Morphology Polychromasia Hypochromasia Poikilocytosis Basophilic Stippling Anisocytosis Microcytosis Macrocytosis Spherocytes Pappenheimer Bodies Sickle Cells Target Cells Tear Drop Cells Ovalocytes Stomatocytes [place] Bodies Echinocytes Acanthocytes (Spur) Rouleaux RBC Agglutinates Schistocytes RBC Morph Comment Sezary Cell PT Pending INR Pending APTT Pending PTT Ratio Pending POC Sodium 139 Sodium POC Potassium 3.2 L Potassium POC Chloride 102 Chloride Carbon Dioxide POC Total CO2 24 Anion Gap POC Anion Gap 17.0 POC BUN 15 BUN Creatinine POC Creatinine 0.8 Est Cr Clr Drug Dosing Est GFR ( Amer) Est GFR (Non-Af Amer) BUN/Creatinine Ratio Glucose POC Glucose (other) 99 Calcium POC Ioniz Calcium Emil 1.13 Total Bilirubin AST ALT Alkaline Phosphatase Total Creatine Kinase CK-MB (CK-2) CK/CKMB % Calc Troponin I NT-Pro-B Natriuret Pep Total Protein Albumin Globulin Albumin/Globulin Ratio Lipase Urine Color Urine Appearance Urine pH Ur Specific [place] Urine Protein Urine Glucose (UA) Urine Ketones Urine Blood Urine Nitrite Urine Bilirubin Urine Urobilinogen Ur Leukocyte Esterase Urine WBC (Auto) Urine RBC (Auto) U Hyaline Cast (Auto) U Epithel Cells (Auto) Urine Bacteria (Auto) Diagnostic Findings CTA chest IMPRESSION: 1. No pulmonary emboli identified. 2. No acute intrathoracic findings. 3. Mild emphysema. 4. Moderate coronary artery calcification Medications Administered Current Inpatient Medications Acetaminophen (Tylenol) 650 mg PO Q4H PRN PRN Reason: pain/fever Stop: 12/06/18 14:01 Albuterol (Duoneb) 3 ml NEB Q2R PRN PRN Reason: Dyspnea Stop: 12/06/18 14:01 Alprazolam (Xanax) 0.25 mg PO DAILY PRN PRN Reason: anxiety Stop: 12/06/18 14:01 Enoxaparin Sodium (Lovenox) 40 mg SQ Q24H [facility] Stop: 12/06/18 14:01 Hydrochlorothiazide (Hctz) 25 mg PO QAM [facility] Stop: 12/07/18 08:59 Methylprednisolone 40 mg/ (Syringe) 0.64 mls @ 1.5 mls/min IV Q12 [facility] Stop: 12/06/18 20:59 Ertapenem 1,000 mg/ Sodium (Chloride) 60 mls @ 100 mls/hr IV DAILY [facility]; Protocol Stop: 11/12/18 08:59 Lisinopril (Zestril) 40 mg PO QAM [facility] Stop: 12/07/18 08:59 Ondansetron HCl (Zofran) 4 mg IV Q6H PRN PRN Reason: Nausea Stop: 12/06/18 14:01 Oxycodone/Acetaminophen (Percocet 5mg/325mg) 1 tab PO Q8H [facility] Stop: 11/20/18 14:01 Last Admin: 11/06/18 15:25 Dose: 1 tab Documented by: Pantoprazole Sodium (Protonix) 40 mg PO BID [facility] Stop: 12/06/18 20:59 Potassium Chloride (Klor-Con M20) 20 meq PO BID [facility] Stop: 12/06/18 20:59 Sertraline HCl (Zoloft) 50 mg PO QAM [facility] Stop: 12/07/18 08:59 Code Status & VTE Plan Code Status Full code VTE Prophylaxis Plan VTE Prophylaxis will be ordered: Yes PG Care Time/CCT Total # of Minutes Spent Total Time Spent with Patient: Total time spent is greater than 50% in coordination of care (as documented) at patient's floor/unit and/or counseling patient:
[2018-11-06 15:39] LABS: Partial Thromboplastin Time 27.6 Seconds (21.0-31.0); Prothrombin Time 10.3 Seconds (9.0-12.0)
--- NOTE | 2018-11-06 15:39 | Emergency Department Note ---
Entered by Dov Diaz acting as a scribe for History of Present Illness General Chief complaint: Respiratory Problems Time Seen by Provider: 11/06/18 08:52 Source: patient History of Present Illness Onset (ago): day(s) (yesterday) Location: chest Pain Consistency: + other (worsening) Quality: + other (SOB) Associated symptoms: + cough (wet cough) The patient is a 77 y/o female who presents to the ED w/ CC of worsening shortness of breath beginning yesterday. The patient states that she has felt unwell for the past week. She reports that she was evaluated by her PCP and had blood work and a chest x-ray performed. She states that she was diagnosed with a UTI and received one dose of Macrobid. She notes the dose of Macrobid has not helped her. Patient reports that she has a wet cough as well. She states that she is recovering from a lower back injury causing her to be less mobile than normal. The patient reports she does receive physical therapy but is still not very active. Patient states that she has a personal history of smoking. She denies a history of a blood clot. Home Medications Home Medications Medication Instructions Recorded Confirmed Type alprazolam 0.25 mg tablet 0.25 mg PO DAILY PRN #30 tab 11/03/18 11/06/18 Rx amlodipine 5 mg tablet 5 mg PO DAILY PRN #90 tab 11/03/18 11/06/18 History oxycodone-acetaminophen 5 mg-325 1 tab PO Q8H #21 tab 11/03/18 11/06/18 Rx mg tablet pantoprazole 40 mg tablet,delayed 40 mg PO BID #60 tab 11/03/18 11/06/18 Rx release nitrofurantoin macrocrystal 100 mg 100 mg PO BID 10 Days #20 cap 11/05/18 11/06/18 Rx capsule hydrochlorothiazide 25 mg PO QAM 11/06/18 11/06/18 History lisinopril 40 mg PO QAM 11/06/18 11/06/18 History sertraline 50 mg PO QAM 11/06/18 11/06/18 History Allergies Allergy/AdvReac Type Severity Reaction Status Date / Time Cipro AdvReac Intermediate REDNESS Verified 09/24/17 08:08 ALONG VEIN ciprofloxacin AdvReac Intermediate REDNESS Verified 11/06/18 10:53 ALONG VEIN atorvastatin AdvReac Unknown muscle pain Verified 11/06/18 10:53 simvastatin AdvReac Unknown muscle pain Verified 11/06/18 10:53 Past Med/Surg History Medical History Dehydration Gait disturbance (Chronic) Hearing decreased (Chronic) History of malignant neoplasm of breast (Chronic) History of nicotine dependence (Chronic) Intermittent claudication (Chronic) Lesion of right ute kidney (Chronic) Low back pain (Chronic) Osteoporosis (Chronic) Prediabetes (Chronic) Right knee pain (Chronic) Sleep disturbance (Chronic) Spinal stenosis (Chronic) Statin intolerance (Chronic) Stenosis of iliac artery (Chronic) Vitamin D deficiency disease (Chronic) Breast cancer (Chronic 12/26/13) "Abnormal left breast mammogram Status post ultrasound-guided biopsies 10/06/2013 that revealed benign status post left breast excisional biopsy 12/02/2013 revealing infiltrating ductal carcinoma estrogen receptor positive, progesterone receptor positive, 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, stage pT2 Status post reexcision and sentinel lymph node biopsy 12/26/2013 pN0 (i+) Oncotype DX score of 11 Status post completion of radiation therapy 04/13/2014 received 5006 cGy utilizing hypo-fractionation Required post radiation wound care " Hypercholesteremia (Chronic) Hypertension (Chronic) Depression (Chronic) Hypercalcemia (Chronic) Elevated alkaline phosphatase level (Chronic) Gastritis (Chronic) Surgical History H/O lumbosacral spine surgery (Chronic) S/P radiotherapy (Chronic) Status post right partial knee replacement (Chronic) S/P breast lumpectomy (Chronic) History of breast lump/mass excision History of partial mastectomy of left breast Hx of dilation and curettage Hx of oral surgery Family History Daughter Breast cancer Mother Aortic aneurysm Renal failure Brother Aortic aneurysm Prostate cancer Father Aortic aneurysm Hypertension Pure hypercholesterolemia Grandmother (Maternal) Colon cancer Unknown Diabetes Social History Preferred Language: Malian Communication Ability: Effective Beliefs That Will Affect Care: None marital status: / Current Living Situation: Alone Current Living Situation Comment: Daughter living with mother temporarily. current occupational status: retired Other Information That Helps Us Care for You: No Feels Safe at Home: Yes Safety Concerns: Feels Safe At This Time Smoking Status: Former smoker Tobacco Type: cigarettes ; Smoking End Date: Stopped approximately one year ago, but has smoked over the last wk. ; Tobacco Cessation Education Requested by Patient: No Hx Alcohol Use: No Hx Substance Use: No Review of Systems See HPI for pertinent positives & negatives. and A total of 10 systems reviewed and were otherwise negative Physical Exam Vital Signs Vital Signs - 24 hr 11/06/18 08:51 11/06/18 08:53 11/06/18 08:54 Temperature 37.0 C Temperature Source Oral Sepsis Recent Fever Within 48 Hours No Sepsis New/Unexplained Change in Mental Status No Sepsis Action Taken by Nursing No Action Required Pulse Rate 104 H Pulse Rate [Finger] Pulse Rate from SpO2 Sensor Respiratory Rate 20 Respiratory Effort / Characteristics Spontaneous Blood Pressure 134/102 H Blood Pressure Mean 112 Pulse Oximetry 92 95 95 Oxygen Delivery Method Room Air Nasal Cannula Nasal Cannula Oxygen Flow Rate 2 2 11/06/18 09:00 11/06/18 09:31 11/06/18 10:12 Temperature Temperature Source Sepsis Recent Fever Within 48 Hours Sepsis New/Unexplained Change in Mental Status Sepsis Action Taken by Nursing Pulse Rate 93 H 84 94 H Pulse Rate [Finger] Pulse Rate from SpO2 Sensor 91 H 89 Respiratory Rate 20 21 16 Respiratory Effort / Characteristics Blood Pressure 129/85 117/53 L 137/85 Blood Pressure Mean 99 74 102 Pulse Oximetry 95 98 94 Oxygen Delivery Method Nasal Cannula Nasal Cannula Nasal Cannula Oxygen Flow Rate 2 11/06/18 10:20 11/06/18 10:26 11/06/18 10:30 Temperature Temperature Source Sepsis Recent Fever Within 48 Hours Sepsis New/Unexplained Change in Mental Status Sepsis Action Taken by Nursing Pulse Rate 94 H 91 H Pulse Rate [Finger] 90 Pulse Rate from SpO2 Sensor 104 H 87 Respiratory Rate 28 H 22 21 Respiratory Effort / Characteristics Spontaneous Short of Breath Blood Pressure 151/91 H Blood Pressure Mean 111 Pulse Oximetry 88 L 95 96 Oxygen Delivery Method Nasal Cannula Oxygen Flow Rate 2 11/06/18 10:40 11/06/18 10:50 11/06/18 11:00 Temperature Temperature Source Sepsis Recent Fever Within 48 Hours Sepsis New/Unexplained Change in Mental Status Sepsis Action Taken by Nursing Pulse Rate 98 H 101 H 104 H Pulse Rate [Finger] Pulse Rate from SpO2 Sensor 106 H Respiratory Rate 16 24 23 Respiratory Effort / Characteristics Blood Pressure 127/72 Blood Pressure Mean 90 Pulse Oximetry 97 Oxygen Delivery Method Oxygen Flow Rate 11/06/18 11:10 11/06/18 11:20 11/06/18 11:30 Temperature Temperature Source Sepsis Recent Fever Within 48 Hours Sepsis New/Unexplained Change in Mental Status Sepsis Action Taken by Nursing Pulse Rate 106 H 113 H 104 H Pulse Rate [Finger] Pulse Rate from SpO2 Sensor 101 H 110 H 107 H Respiratory Rate 17 17 20 Respiratory Effort / Characteristics Blood Pressure 128/61 Blood Pressure Mean 83 Pulse Oximetry 84 L 91 Oxygen Delivery Method Oxygen Flow Rate 11/06/18 11:40 Temperature Temperature Source Sepsis Recent Fever Within 48 Hours Sepsis New/Unexplained Change in Mental Status Sepsis Action Taken by Nursing Pulse Rate 101 H Pulse Rate [Finger] Pulse Rate from SpO2 Sensor 103 H Respiratory Rate 18 Respiratory Effort / Characteristics Blood Pressure Blood Pressure Mean Pulse Oximetry 91 Oxygen Delivery Method Oxygen Flow Rate GENERAL: Awake, alert, well-appearing, in no acute distress HENT: Normocephalic, atraumatic. Oropharynx unremarkable. EYES: Normal conjunctiva. Sclera non-icteric. NECK: Supple. No nuchal rigidity. FROM. No JVD. RESPIRATORY: Clear to auscultation. CARDIAC: Regular rate, normal rhythm. Extremities warm and well perfused. Pulses equal. ABDOMEN: Soft, non-distended. No tenderness to palpation. No rebound or guarding. No masses. RECTAL: Deferred. MUSCULOSKELETAL: Chest examination reveals no tenderness. The back is symmetrical on inspection without obvious abnormality. There is no CVA tenderness to palpation. No joint edema. LOWER EXTREMITIES: Calves are equal size bilaterally and non-tender. No edema. No discoloration. NEURO: Normal sensorium. No sensory or motor deficits noted. SKIN: No rash or jaundice noted. Course 08: Past medical records reviewed. The patient was evaluated in room B07 by the resident under my supervision. A complete history and physical examination was performed. 912: Past medical records reviewed. The patient was evaluated in room B07 by me. A complete history and physical exam was performed. 1000: I reevaluated the patient and updated her of her current test results. 1045: Upon reevaluation by the resident under my supervision, the patient is resting comfortably. The resident discussed laboratory and radiographic results with her. The patient verbalized agreement of the treatment plan. The patient will be evaluated for further management and care. 1053: I reviewed the patient's case with Dr. Doss [facility]. He will evaluate the patient for further management. Administered Medications Alprazolam (Xanax) 0.25 mg PO DAILY PRN PRN Reason: anxiety Stop: 12/06/18 14:01 Last Admin: 11/07/18 05:43 Dose: 0.25 mg Documented by: [id number] Admin: 11/06/18 17:47 Dose: 0.25 mg Documented by: [id number] Enoxaparin Sodium (Lovenox) 40 mg SQ Q24H BURAK Stop: 12/06/18 16:59 Last Admin: 11/06/18 18:39 Dose: 40 mg Documented by: [id number] Methylprednisolone 40 mg/ (Syringe) 0.64 mls @ 1.5 mls/min IV Q12 BURAK Stop: 12/06/18 20:59 Last Admin: 11/06/18 20:41 Dose: 1.5 mls/min Documented by: [id number] Oxycodone/Acetaminophen (Percocet 5mg/325mg) 1 tab PO Q8H BURAK Stop: 11/20/18 14:01 Last Admin: 11/07/18 05:43 Dose: 1 tab Documented by: [id number] Admin: 11/06/18 21:37 Dose: 1 tab Documented by: [id number] Admin: 11/06/18 15:25 Dose: 1 tab Documented by: [id number] Pantoprazole Sodium (Protonix) 40 mg PO BID BURAK Stop: 12/06/18 20:59 Last Admin: 11/06/18 20:41 Dose: 40 mg Documented by: [id number] Potassium Chloride (Klor-Con M20) 20 meq PO BID BURAK Stop: 12/06/18 20:59 Last Admin: 11/06/18 20:41 Dose: 20 meq Documented by: [id number] Discontinued Medications Albuterol (Duoneb) 12 ml NEB ONE ONE Stop: 11/06/18 09:25 Last Admin: 11/06/18 10:23 Dose: 12 ml Documented by: [id number] Sodium Chloride (Nss 1000ml) 1,000 mls @ 999 mls/hr IV .Q1H1M BURAK Stop: 11/06/18 10:15 Last Infusion: 11/06/18 10:22 Dose: 0 mls/hr Documented by: [id number] Admin: 11/06/18 09:21 Dose: 999 mls/hr Documented by: [id number] Levofloxacin/Dextrose (Levaquin/D5w) 750 mg in 150 mls @ 100 mls/hr IV Q24H BURAK Stop: 11/13/18 10:59 Last Admin: 11/06/18 11:55 Dose: Not Given Documented by: [id number] Ertapenem (Invanz) 10 mls @ 2 mls/min IV NOW STA Stop: 11/06/18 11:36 Last Admin: 11/06/18 12:36 Dose: 2 mls/min Documented by: [id number] Ioversol (Optiray 320 125ml) 120 ml IV ONCE PRN PRN Reason: Interaction Checking Stop: 11/10/18 10:04 Last Admin: 11/06/18 10:06 Dose: 120 ml Documented by: [id number] Methylprednisolone (Solumedrol) 125 mg IV NOW STA Stop: 11/06/18 10:47 Last Admin: 11/06/18 11:24 Dose: 125 mg Documented by: [id number] Potassium Chloride (Klor-Con M20) 40 meq PO NOW STA Stop: 11/06/18 09:54 Last Admin: 11/06/18 10:14 Dose: 40 meq Documented by: [id number] Medical Decision Making Differential Diagnosis Differential diagnoses includes but is not limited to pneumonia, bronchitis, COPD/Asthma exacerbation, pneumothorax, pulmonary embolism, congestive heart failure, acute coronary syndrome Medical Records Attestation: I reviewed the patient's medical records. Home Medications Current Medication List: was personally reviewed by me Laboratory Data Attestation: I reviewed the patient's lab results. Result diagrams: 11/07/18 05:39 11/07/18 05:39 Lab Results 11/06/18 11/06/18 11/06/18 Range/Units 09:14 09:15 09:15 WBC Cancelled RBC Cancelled Hgb Cancelled POC Hgb (12.0-16.0) g/dl Hct Cancelled POC Hct (37-47) % MCV Cancelled MCH Cancelled MCHC Cancelled RDW Std Deviation Cancelled RDW Coeff of Hipolito Cancelled Plt Count Cancelled MPV Cancelled Immature Gran % (Auto) Cancelled Neut % (Auto) Cancelled Lymph % (Auto) Cancelled Ulster % (Auto) Cancelled Eos % (Auto) Cancelled Baso % (Auto) Cancelled Immature Gran # (Auto) Cancelled Neut # (Auto) Cancelled Lymph # (Auto) Cancelled Ul[place] # (Auto) Cancelled Eos # (Auto) Cancelled Baso # (Auto) Cancelled Absolute Nucleated RBC Cancelled Nucleated RBC % (auto) Cancelled Neutrophils % (Manual) Cancelled Band Neutrophils % Cancelled Lymphocytes % (Manual) Cancelled Prolymphocyte % Cancelled Reactive Lymphs % (Man) Cancelled Monocytes % (Manual) Cancelled Eosinophils % (Manual) Cancelled Basophils % (Manual) Cancelled Metamyelocytes % (Man) Cancelled Myelocytes % (Man) Cancelled Promyelocytes % (Man) Cancelled Blast Cells % (Manual) Cancelled Plasma Cell % (Manual) Cancelled Other Cells % Cancelled Nucleated RBC % Cancelled Neutrophils # (Manual) Cancelled Band Neutrophils # Cancelled Total Absolute Neuts Cancelled Lymphocytes # (Manual) Cancelled Prolymphocyte # Cancelled Reactive Lymphs # Cancelled Total Abs Lymphocytes Cancelled Monocytes # (Manual) Cancelled Eosinophils # (Manual) Cancelled Basophils # (Manual) Cancelled Metamyelocytes # (Man) Cancelled Myelocytes # (Manual) Cancelled Promyelocytes # (Man) Cancelled Blast Cells # (Man) Cancelled Plasma Cell # (Manual) Cancelled Other Cells # Cancelled Nucleated RBCs # (Man) Cancelled Hypersegmented Neuts Cancelled Hyposegmented Neuts Cancelled Hypogranular Neuts Cancelled Large Granular Lymphs Cancelled # Lrg Granular Lymphs Cancelled Hairy Cells Cancelled Smudge Cells Cancelled Toxic Granulation Cancelled Toxic Vacuolation Cancelled Dohle Bodies Cancelled Cherelle Rods Cancelled Platelet Estimate Cancelled Hypogranular Platelets Cancelled Clumped Platelets Cancelled Giant Platelets Cancelled Platelet Satelliting Cancelled RBC Morphology Cancelled Polychromasia Cancelled Hypochromasia Cancelled Poikilocytosis Cancelled Basophilic Stippling Cancelled Anisocytosis Cancelled Microcytosis Cancelled Macrocytosis Cancelled Spherocytes Cancelled Pappenheimer Bodies Cancelled Sickle Cells Cancelled Target Cells Cancelled Tear Drop Cells Cancelled Ovalocytes Cancelled Stomatocytes Cancelled Lyon-Atmore Bodies Cancelled Echinocytes Cancelled Acanthocytes (Spur) Cancelled Rouleaux Cancelled RBC Agglutinates Cancelled Schistocytes Cancelled RBC Morph Comment Cancelled Sezary Cell Cancelled POC Sodium (135-144) mEq/L Sodium 135 L (136-145) mmol/L POC Potassium (3.3-5.0) mEq/L Potassium (3.5-5.1) mmol/L POC Chloride (101-112) mEq/L Chloride 103 (98-107) mmol/L Carbon Dioxide 27 (21-32) mmol/L POC Total CO2 (24-31) mEq/l Anion Gap 5.0 (3-11) POC Anion Gap (16-25) mmol/L POC BUN (7-18) mg/dl BUN 18 (7-18) mg/dl Creatinine 0.92 (0.6-1.2) mg/dl POC Creatinine (0.6-1.3) mg/dl Est Cr Clr Drug Dosing 54.6 ml/min Est GFR ( Amer) 69.6 Est GFR (Non-Af Amer) 60.1 BUN/Creatinine Ratio 19.4 (10-20) Glucose 116 H (70-99) mg/dl POC Glucose (other) (70-99) mg/dl Calcium 9.6 (8.5-10.1) mg/dl POC Ioniz Calcium Emil (1.12-1.32) mmol/l Total Bilirubin 0.8 (0.2-1) mg/dl AST (15-37) U/L ALT 41 (12-78) U/L Alkaline Phosphatase 116 (45-117) U/L Total Creatine Kinase (26-192) U/L CK-MB (CK-2) 1.8 (0.5-3.6) ng/ml CK/CKMB % Calc TNP Troponin I < 0.015 (0-0.045) ng/ml NT-Pro-B Natriuret Pep 90 (0-1800) pg/ml Total Protein 6.7 (6.4-8.2) gm/dl Albumin 3.2 L (3.4-5.0) gm/dl Globulin 3.5 (2.5-4.0) gm/dl Albumin/Globulin Ratio 0.9 (0.9-2) Lipase 54 L (73-393) U/L Urine Color Yellow Urine Appearance Clear (Clear) Urine pH 6.5 (4.5-7.5) Ur Specific Rover 1.036 H (1.000-1.030) Urine Protein Negative (Negative) Urine Glucose (UA) Negative (Negative) Urine Ketones Negative (Negative) Urine Blood Negative (Negative) Urine Nitrite Negative (Negative) Urine Bilirubin Negative (Negative) Urine Urobilinogen Negative (Negative) Ur Leukocyte Esterase 2+ H (Negative) Urine WBC (Auto) >30 H (0-5) /hpf Urine RBC (Auto) 0-4 (0-4) /hpf U Hyaline Cast (Auto) 0 (0-5) /lpf U Epithel Cells (Auto) 20-30 H (0-5) /lpf Urine Bacteria (Auto) Negative (Negative) 11/06/18 Range/Units 09:48 WBC RBC Hgb POC Hgb 13.6 (12.0-16.0) g/dl Hct POC Hct 40 (37-47) % MCV MCH MCHC RDW Std Deviation RDW Coeff of Hipolito Plt Count MPV Immature Gran % (Auto) Neut % (Auto) Lymph % (Auto) Ulster % (Auto) Eos % (Auto) Baso % (Auto) Immature Gran # (Auto) Neut # (Auto) Lymph # (Auto) Ulster # (Auto) Eos # (Auto) Baso # (Auto) Absolute Nucleated RBC Nucleated RBC % (auto) Neutrophils % (Manual) Band Neutrophils % Lymphocytes % (Manual) Prolymphocyte % Reactive Lymphs % (Man) Monocytes % (Manual) Eosinophils % (Manual) Basophils % (Manual) Metamyelocytes % (Man) Myelocytes % (Man) Promyelocytes % (Man) Blast Cells % (Manual) Plasma Cell % (Manual) Other Cells % Nucleated RBC % Neutrophils # (Manual) Band Neutrophils # Total Absolute Neuts Lymphocytes # (Manual) Prolymphocyte # Reactive Lymphs # Total Abs Lymphocytes Monocytes # (Manual) Eosinophils # (Manual) Basophils # (Manual) Metamyelocytes # (Man) Myelocytes # (Manual) Promyelocytes # (Man) Blast Cells # (Man) Plasma Cell # (Manual) Other Cells # Nucleated RBCs # (Man) Hypersegmented Neuts Hyposegmented Neuts Hypogranular Neuts Large Granular Lymphs # Lrg Granular Lymphs Hairy Cells Smudge Cells Toxic Granulation Toxic Vacuolation Dohle Bodies Cherelle Rods Platelet Estimate Hypogranular Platelets Clumped Platelets Giant Platelets Platelet Satelliting RBC Morphology Polychromasia Hypochromasia Poikilocytosis Basophilic Stippling Anisocytosis Microcytosis Macrocytosis Spherocytes Pappenheimer Bodies Sickle Cells Target Cells Tear Drop Cells Ovalocytes Stomatocytes Lyon-Atmore Bodies Echinocytes Acanthocytes (Spur) Rouleaux RBC Agglutinates Schistocytes RBC Morph Comment Sezary Cell POC Sodium 139 (135-144) mEq/L Sodium (136-145) mmol/L POC Potassium 3.2 L (3.3-5.0) mEq/L Potassium (3.5-5.1) mmol/L POC Chloride 102 (101-112) mEq/L Chloride (98-107) mmol/L Carbon Dioxide (21-32) mmol/L POC Total CO2 24 (24-31) mEq/l Anion Gap (3-11) POC Anion Gap 17.0 (16-25) mmol/L POC BUN 15 (7-18) mg/dl BUN (7-18) mg/dl Creatinine (0.6-1.2) mg/dl POC Creatinine 0.8 (0.6-1.3) mg/dl Est Cr Clr Drug Dosing ml/min Est GFR ( Amer) Est GFR (Non-Af Amer) BUN/Creatinine Ratio (10-20) Glucose (70-99) mg/dl POC Glucose (other) 99 (70-99) mg/dl Calcium (8.5-10.1) mg/dl POC Ioniz Calcium Emil 1.13 (1.12-1.32) mmol/l Total Bilirubin (0.2-1) mg/dl AST (15-37) U/L ALT (12-78) U/L Alkaline Phosphatase (45-117) U/L Total Creatine Kinase (26-192) U/L CK-MB (CK-2) (0.5-3.6) ng/ml CK/CKMB % Calc Troponin I (0-0.045) ng/ml NT-Pro-B Natriuret Pep (0-1800) pg/ml Total Protein (6.4-8.2) gm/dl Albumin (3.4-5.0) gm/dl Globulin (2.5-4.0) gm/dl Albumin/Globulin Ratio (0.9-2) Lipase (73-393) U/L Urine Color Urine Appearance (Clear) Urine pH (4.5-7.5) Ur Specific Rover (1.000-1.030) Urine Protein (Negative) Urine Glucose (UA) (Negative) Urine Ketones (Negative) Urine Blood (Negative) Urine Nitrite (Negative) Urine Bilirubin (Negative) Urine Urobilinogen (Negative) Ur Leukocyte Esterase (Negative) Urine WBC (Auto) (0-5) /hpf Urine RBC (Auto) (0-4) /hpf U Hyaline Cast (Auto) (0-5) /lpf U Epithel Cells (Auto) (0-5) /lpf Urine Bacteria (Auto) (Negative) Imaging Data Radiologist's Impression: Radiology results as stated below per my review and the radiologist's interpretation: XR chest 1V portable CLINICAL HISTORY: Chest pain. COMPARISON STUDY: Chest radiograph November 03, 2018. FINDINGS: Lung volumes are normal. There may be minimal right basilar opacity. There is no pneumothorax or pleural effusion. Cardiac size is normal. Mediastinal contours are normal. There is no evidence for pulmonary edema. IMPRESSION: Possible minimal right basilar opacity. Electronically signed by: Ephraim Breaux M.D. 11/06/2018 9:[address] ANGIOGRAPHY OF THE CHEST, PULMONARY EMBOLUS PROTOCOL CLINICAL HISTORY: Chest pain. Evaluate for pulmonary embolus. COMPARISON STUDY: Chest radiograph November 03, 2018 and November 06, 2018. TECHNIQUE: Following IV administration of 120 mL of Optiray-320, helical axial images of the chest were obtained utilizing the pulmonary embolus protocol. Maximal intensity projections and sagittal and coronal reformats were viewed on an independent 3D workstation. IV contrast was administered without complication. Automated exposure control was utilized for the study. A dose lowering technique was utilized adhering to the principles of ALARA. CT DOSE: 369.62 mGy.cm FINDINGS: No pulmonary emboli are identified. There is moderate plaque within the thoracic aorta without evidence for dissection. The size of the heart is normal. No enlarged thoracic lymph nodes are present. Mild emphysema is present. There is no consolidation to suggest pneumonia. No pneumothorax or pleural effusion is noted. Subpleural left upper lobe opacity reflects scarring. There are postoperative findings within the left breast. Left adrenal nodularity is unchanged. This is benign. IMPRESSION: 1. No pulmonary emboli identified. 2. No acute intrathoracic findings. 3. Mild emphysema. 4. Moderate coronary artery calcification. Electronically signed by: Ephraim Breaux M.D. 11/06/2018 10:23 AM ECG Data Attestation: I personally reviewed and interpreted this ECG as follows: Indication: SOB/dyspnea Rate (beats per minute): 103 Rhythm: sinus tachycardia Findings: + ST depression (slight) Comparison ECG Date: from (08/31/2017) Change: the following changes noted Additional Comments: slight ST depression is new Blood Pressure Blood Pressure Findings: Elevated blood pressure Blood Pressure Disposition: further management by hospitalist MDM Narrative This is a 77-year-old female who presents to the emergency department after being placed on Macrobid. The patient is hypoxic upon arrival to the emergency department she was given an hour-long breathing treatment. Patient required oxygen. I do feel at this point the patient can be safely discharged home for close follow-up with primary care physician. Impression & Plan Acute respiratory failure with hypoxia, Hypokalemia Discharge Plan Visit Data *Final* Discharge Date/Time: 11/06/18 13:19 Chief Complaint: Respiratory Problems ED Provider: Afshin [facility] ED Midlevel Provider: Gina Callahan Discharge Problem: Acute respiratory failure with hypoxia, Hypokalemia Patient Disposition: Admitted As Inpatient Discharge Instructions Interventions: ED Discharge Assessment Last Done: 11/06/18 13:19 The scribe's documentation has been prepared under my direction and personally reviewed by me in its entirety. I confirm that the note above accurately reflects all work, treatment, procedures, and medical decision making performed by me.
[2018-11-06] MEDS: ALPRAZolam 0.25 MG TABLET PO PRN (17:47)
[2018-11-06] MEDS: ENOXAPARIN INJ 40 MG/0.4 ML SYR SQ SCH (18:39)
[2018-11-06] MEDS: methylPREDNISolone 40 MG in SYRINGE 0 ML IV SCH (20:41)
[2018-11-06] MEDS: PANTOprazole 40 MG TAB PO SCH (20:41)
[2018-11-06] MEDS ORDERED: POTASSIUM CHLORIDE 20 MEQ TABCR PO SCH (21:00)
[2018-11-07] MEDS: OXYCODONE/ACETAMINOPHEN 5mg/325mg TAB PO SCH ×3 (05:43→21:53)
[2018-11-07] MEDS: ALPRAZolam 0.25 MG TABLET PO PRN ×2 (05:43→18:22)
[2018-11-07 06:08] LABS: Hematocrit (blood only) 38.4 % (37-47); Hemoglobin 13.2 g/dL (12.0-16.0); Mean Corpuscular Hemoglobin 30.3 pg (25-34); Mean Corpuscular Hgb Conc 34.4 g/dL (32-36); Mean Corpuscular Volume 88.3 fL (80-100); Platelet Count 262 K/uL (130-400); RDW Coefficient of Variation 13.7 % (11.5-14.5); Red Blood Count 4.35 M/uL (4.2-5.4); White Blood Count 10.82 K/uL (4.8-10.8)
[2018-11-07 06:48] LABS: BUN Creatinine Ratio 26.3 (10-20); Calcium 9.7 mg/dl (8.5-10.1); Est GFR (African American) 73.5; Est GFR (Non-African American) 63.4; Potassium 4.6 mmol/L (3.5-5.1)
[2018-11-07] MEDS: hydroCHLOROthiazide 25 MG TAB PO SCH (08:43)
[2018-11-07] MEDS: methylPREDNISolone 40 MG in SYRINGE 0 ML IV SCH (08:43)
[2018-11-07] MEDS: lisinopriL 40 MG TAB PO SCH (08:44)
[2018-11-07] MEDS: PANTOprazole 40 MG TAB PO SCH ×2 (08:45→21:53)
[2018-11-07] MEDS ORDERED: SERTRALINE HCL 50 MG TABLET PO SCH (09:00)
[2018-11-07] MEDS: ERTAPENEM SODIUM 1,000 MG in SODIUM CHLORIDE 0.9% 50 ML IV SCH (09:00)
[2018-11-07] MEDS ORDERED: levoFLOXacin 750 MG TAB PO SCH (11:00)
[2018-11-07] MEDS ORDERED: ALPRAZolam 0.5 MG TABLET PO STA (11:16)
--- NOTE | 2018-11-07 15:31 | Hospitalist Progress Note ---
Date of Service November 07, 2018 Assessment & Plan (1) Anxiety: severe anxiety, causing chest pain and dyspnea, may have been driving force for admission due to external stress of her daughter consult psychiatry for recommendations will increase her Sertraline to 100mg from 50mg continue Xanax PRN for panic symptoms decrease steroids to lessen her shaking should be fine for d/c to home tomorrow (2) COPD exacerbation: no true diagnosis of COPD but she has emphysematous changes on CT chest lacks any other diagnosis: no PE, no heart failure, no pneumonia on imaging will treat with Solu Medrol 40mg IV q12 and Duoneb QID and q2 PRN no role for antibiotics given lack of purulent symptoms would likely benefit from starting Spiriva on discharge should have a follow up with pulmonology and get PFT when her breathing is at baseline will stop Solu Medrol today start on Prednisone 20mg daily tomorrow, complete 4 days total of Prednisone with no taper needed (3) Acute respiratory failure with hypoxia: increased work of breathing at rest, oxygen desaturation to mid 80's on room air in the ED resolved today, breathing room air comfortably (4) Hypokalemia: resolved at 4.6, will stop PO supplementation (5) UTI (urinary tract infection): urine culture from 11/03 growing E coli that is ESBL sensitive to Ertapenem she was on Macrobid prior to admission use Ertapenem while admitted but can change back to Macrobid on discharge last dose of abx on 11/11 (6) Hypertension: continue on home BP medications, BP is stable (7) Gastritis: continue on Protonix Subjective patient says she is really anxious today, getting chest pain, dyspnea, heart racing she says her living situation is terrible her grown daughter who is 50 yo lives with her, she is alcoholic who had an ankle fracture that required amputation she has so much stress about her relationship with her she worries about her constantly her other 3 children and her 9 grandchildren don't see her because her daughter lives with her she is tearful discussing her daughter, she was beautiful and successful and she squandered her future with alcohol she now has amputated leg and cirrhosis she required an extra dose of Xanax today due to the anxiety discussed that Xanax is okay short term but simply increasing dose or frequency would not be answer asked her if she wanted to speak with someone and she said yes will consult psychiatry certainly the Solu Medrol not helping with shakes and anxiety plan to taper quickly lungs clear today Review of Systems Review of Systems: All systems reviewed & are unremarkable except as noted in HPI & below Constitutional: no fever Respiratory: + dyspnea on exertion; no cough, no dyspnea and no wheezing Cardiovascular: no chest pain Gastrointestinal: no abdominal pain, no nausea, no vomiting, no constipation and no diarrhea/loose stools Psychiatric: + depression, + anxiety and + panic attacks Physical Exam Constitutional: WD/WN, vitals as above Eyes: PERRL, conjunctivae normal, anicteric sclerae ENMT: external ear and nose normal, oropharynx normal Neck: trachea midline, no thyromegaly Respiratory: normal respiratory effort; no respiratory distress Auscultation: lungs clear to auscultation bilaterally and + diminished lung sounds; no wheezes Cardiovascular: RRR, no murmur, no edema Gastrointestinal (Abdomen): normal bowel sounds, soft, nontender, no hepatosplenomegaly Musculoskeletal: no cyanosis or clubbing, extremities motor strength 5/5 Skin: no rashes, warm and dry Neurologic: patellar DTR's 2+ bilat, sensation intact and PERRL, EOMI, accommodation nl, no face palsy, no dysarthria Psychiatric: Orientation: alert and oriented x 3 Affect: + anxious affect Mood: + anxious mood Lymphatic: no cervical or axillary lymphadenopathy Results & Data Vital Signs (Past 12 Hours) Vital Signs Temp Pulse Resp BP Pulse Ox 11/07/18 06:55 36.7 C 68 18 122/78 93 Laboratory Results Laboratory Results - last 24 hr 11/06/18 11/07/18 11/07/18 15:05 05:39 05:39 WBC 10.82 H RBC 4.35 Hgb 13.2 Hct 38.4 MCV 88.3 MCH 30.3 MCHC 34.4 RDW Std Deviation 45.0 RDW Coeff of Hipolito 13.7 Plt Count 262 MPV 9.0 PT 10.3 INR 1.0 APTT 27.6 PTT Ratio 1.0 Sodium 136 Potassium 4.6 Chloride 105 Carbon Dioxide 25 Anion Gap 6.0 BUN 23 H Creatinine 0.88 Est Cr Clr Drug Dosing 55.0 Est GFR ( Amer) 73.5 Est GFR (Non-Af Amer) 63.4 BUN/Creatinine Ratio 26.3 H Glucose 125 H Calcium 9.7 Medications Administered Current Inpatient Medications Acetaminophen (Tylenol) 650 mg PO Q4H PRN PRN Reason: pain/fever Stop: 12/06/18 14:01 Albuterol (Duoneb) 3 ml NEB Q2R PRN PRN Reason: Dyspnea Stop: 12/06/18 14:01 Alprazolam (Xanax) 0.25 mg PO DAILY PRN PRN Reason: anxiety Stop: 12/06/18 14:01 Last Admin: 11/07/18 05:43 Dose: 0.25 mg Documented by: Enoxaparin Sodium (Lovenox) 40 mg SQ Q24H [facility] Stop: 12/06/18 16:59 Last Admin: 11/06/18 18:39 Dose: 40 mg Documented by: Hydrochlorothiazide (Hctz) 25 mg PO QAM [facility] Stop: 12/07/18 08:59 Last Admin: 11/07/18 08:43 Dose: 25 mg Documented by: Methylprednisolone 40 mg/ (Syringe) 0.64 mls @ 1.5 mls/min IV Q12 [facility] Stop: 12/06/18 20:59 Last Admin: 11/07/18 08:43 Dose: 1.5 mls/min Documented by: Ertapenem 1,000 mg/ Sodium (Chloride) 60 mls @ 100 mls/hr IV DAILY [facility]; Protocol Stop: 11/12/18 08:59 Last Infusion: 11/07/18 11:32 Dose: Infused Documented by: Lisinopril (Zestril) 40 mg PO QAM [facility] Stop: 12/07/18 08:59 Last Admin: 11/07/18 08:44 Dose: 40 mg Documented by: Ondansetron HCl (Zofran) 4 mg IV Q6H PRN PRN Reason: Nausea Stop: 12/06/18 14:01 Oxycodone/Acetaminophen (Percocet 5mg/325mg) 1 tab PO Q8H [facility] Stop: 11/20/18 14:01 Last Admin: 11/07/18 14:17 Dose: 1 tab Documented by: Pantoprazole Sodium (Protonix) 40 mg PO BID [facility] Stop: 12/06/18 20:59 Last Admin: 11/07/18 08:45 Dose: 40 mg Documented by: Sertraline HCl (Zoloft) 100 mg PO QAM [facility] Stop: 12/08/18 08:59 PG Care Time/CCT Total # of Minutes Spent Total Time Spent with Patient: Total time spent is greater than 50% in coordination of care (as documented) at patient's floor/unit and/or counseling patient:
[2018-11-07] MEDS: ENOXAPARIN INJ 40 MG/0.4 ML SYR SQ SCH (17:06)
[2018-11-08] MEDS: OXYCODONE/ACETAMINOPHEN 5mg/325mg TAB PO SCH ×3 (06:06→22:03)
[2018-11-08] MEDS: ERTAPENEM SODIUM 1,000 MG in SODIUM CHLORIDE 0.9% 50 ML IV SCH (08:39)
[2018-11-08] MEDS: predniSONE 20 MG TAB PO SCH (08:40)
[2018-11-08] MEDS: PANTOprazole 40 MG TAB PO SCH ×2 (08:40→20:23)
[2018-11-08] MEDS: SERTRALINE HCL 50 MG TABLET PO SCH (08:40)
[2018-11-08] MEDS: lisinopriL 40 MG TAB PO SCH (08:40)
[2018-11-08] MEDS: hydroCHLOROthiazide 25 MG TAB PO SCH (08:41)
--- NOTE | 2018-11-08 09:15 | Psychiatric Consultation ---
Date of Consultation November 08, 2018 Impression / Recommendations Impression 77-year-old female admitted medically on 11/06/18 due to shortness of breath. Pt is being treated for likely COPD with exacerbation, in addition to a UTI, and hypokalemia. Psychiatric consultation was requested to evaluate patient for "severe anxiety." Pt acknowledges that her presentation may at least, in part, be related to her anxiety level recently. She admits to being under significant stress due to home situations and stress involving her daughter. Pt was agreeable to titration of sertraline to 100mg during conversation with the hospitalist. This certainly seems appropriate, and would recommend consideration of further titration to 150mg in a week if tolerating the medication well. Although it will take several weeks for patient to experience the maximum benefits of the medication, ideally she will be titrated to therapeutic dosing for benefits to be more significant in that timeline. Benzodiazepines are certainly not ideal for long-term treatment of her anxiety, as she is prescribed Percocet as well. Recommendation is for ongoing titration of sertraline to effective dosing with taper and eventual discontinuation of Xanax as her anxiety is under better control. Can also consider milder alternatives for prn management of anxiety, such as hydroxyzine 25mg q4h prn or buspirone scheduled throughout the day. Recommended patient consider therapy and psychiatry referrals for ongoing management of her anxiety. Pt was willing to consider these options and we will assist with referrals. Will also provide patient a handbook containing a summary of mental health services in [facility] - as this will likely be beneficial for both the patient and her daughter. Pt was informed of crisis services in the area and reminded that the information is in this booklet as well. Pt denies SI, HI, SIB, A/V hallucinations, paranoia, and other signs of acute psychosis. There is no criteria for inpatient psychiatric treatment, and discharge can be determined by primary medical team. We will keep patient updated with the progress of referrals during the remainder of her admission. We certainly appreciate the opportunity to participate in the care of this patient, please reach out to our service with any additional concerns about her case. Dr. Wilson Gomez was directly involved in review and discussion of the patient's case and participated in medical decision making regarding treatment recommendations. Plan: 11/08 - Agree with titration of sertraline to 100mg; can consider even further titration to 150mg in a week if tolerating the medication - Consider discontinuation of Xanax as sertraline becomes more effective to manage her anxiety; not ideal that patient continue a benzodiazepine care home given she is also taking Percocet due to risk of respiratory depression, sedation, confusion, and/or . - Ideally, Xanax would be replaced by an effective medication with milder side effect panel, such as hydroxyzine or buspirone - Will assist with referrals for outpatient therapy and psychiatry - No criteria for inpatient psychiatric admission CPT Code Initial Consultation: 49898 Psych History Identifying Data 77-year-old female admitted medically on 11/06/18 due to shortness of breath and chills - being treated for likely COPD with exacerbation of symptoms. Pt has a PMH of HTN, GERD, and anxiety/depression. Pt admitted to feeling as though some of her breathing difficulty may be related to situational stressors at home. Psychiatric consultation was requested to assess patient for severe anxiety. Information is gathered from hospital documentation and the patient herself, the combination of which is considered to be reliable. Chief Complaint "Not too good. I couldn't breath, I think it was anxiety." History of Present Illness Fernanda Thomas is a 77-year-old female admitted medically on 11/06/18 due to shortness of breath and chills. Pt is being treated for pulmonary changes cons istent with COPD exacerbation, along with UTI and hypokalemia. Psychiatric consultation was requested to evaluate patient for "severe anxiety", as patient opened up about the stress surrounding her living arrangements and believes this may be contributing to her shortness of breath complaints. Pt's case was reviewed and discussed with psychiatric nurse liaison and psychiatrist. Pt was cooperative with further evaluation by this provider. Pt states that she has a "very bad situation at home." She shares with this provider that she had allowed her daughter, whom suffers from alcoholism, to live with her. States her daughter has been to rehab - "I can't even tell how many time." Pt states the situation at home has been getting "worse and worse" and that she eventually decided to "throw her out altogether. Tough love, you know?" Pt states that things had improved after her daughter moved out; however, her daughter became sick, and in August required her leg(s) to be amputated - according to the patient. With this change in mobility, the patient allowed her daughter to move back in. While the daughter does not require care from the patient, she states that the home is an anxiety-provoking place for her. Pt states, "I don't know where she can be safe other than there." Pt states that her daughter started drinking "two Fridays ago", and the patient believes this had caused her anxiety to go "over the edge." Pt states, "it had been building up, I just couldn't take it anymore." Pt reports concern about kicking her daughter out as, "I do think she's a risk to herself. She's mentioned things while drinking before." Pt does acknowledge low mood and increased anxiety. She admits to some recent difficulty staying asleep, but overall there have not been other significant changes. Pt reports physical symptoms of anxiety, including SOB, tremors, and palpitations which occur daily. Pt admits to lower than usual energy level, but states she has also been struggling with back pain. While patient reports diagnoses of anxiety and depression for some time, she states she was only recently started on medications to treat these conditions. External medication history shows patient was prescribed sertraline 50mg and alprazolam 0.25mg on 11/03/18. After discussion with the hospitalist, the patient was agreeable to titrating her sertraline to 100mg daily. Pt states that she feels she has been "under-dosed" with the sertraline. We review some education on SSRIs/SNRIs, usual titration schedules, and delay in maximum efficacy for up to 4-6 weeks. Pt is interested in referrals for therapy, and also for a psychiatric prescriber to continue to explore psychotropic medications with her. Pt feels comfortable with the medication adjustments made during this admission. We do review crisis services in the area, regarding both her own symptoms and her concerns for her daughter. Pt denies suicidal ideation. She reports she is tired of dealing with these stressors, but states "I have a lot left I want to do, I'm not ready." Pt denies history of SI or suicide attempts. She denies prior psychiatric hospitalizations. Pt denies SI, HI, SIB, A/V hallucinations, paranoia, erin/hypomania, other symptoms more suggestive of a bipolar presentation, OCD, PTSD, eating disorder, and other specific psychiatric symptoms. Past Psychiatric History Previous Psych History: Reports previous diagnosis of depression and anxiety. Pt reports she has dealt with these feelings for some time, but reports only recently having treatment. She initially thought she had been given antidepressant medication previously, but after review of common medications, she did not recall an familiar names. She denies prior history with outpatient psychiatric treatment. No inpatient psychiatric hospitalizations. She denies prior suicide attempts or self-harm behaviors. Pt denies having access to guns and other weapons. Allergies Allergy/AdvReac Type Severity Reaction Status Date / Time Cipro AdvReac Intermediate REDNESS Verified 09/24/17 08:08 ALONG VEIN ciprofloxacin AdvReac Intermediate REDNESS Verified 11/06/18 10:53 ALONG VEIN atorvastatin AdvReac Unknown muscle pain Verified 11/06/18 10:53 simvastatin AdvReac Unknown muscle pain Verified 11/06/18 10:53 Home Medications Home Medications Medication Instructions Recorded Confirmed Type alprazolam 0.25 mg tablet 0.25 mg PO DAILY PRN #30 tab 11/03/18 11/06/18 Rx amlodipine 5 mg tablet 5 mg PO DAILY PRN #90 tab 11/03/18 11/06/18 History oxycodone-acetaminophen 5 mg-325 1 tab PO Q8H #21 tab 11/03/18 11/06/18 Rx mg tablet pantoprazole 40 mg tablet,delayed 40 mg PO BID #60 tab 11/03/18 11/06/18 Rx release nitrofurantoin macrocrystal 100 mg 100 mg PO BID 10 Days #20 cap 11/05/18 11/06/18 Rx capsule hydrochlorothiazide 25 mg PO QAM 11/06/18 11/06/18 History lisinopril 40 mg PO QAM 11/06/18 11/06/18 History sertraline 50 mg PO QAM 11/06/18 11/06/18 History Family History Pt denies known family history of psychiatric diagnoses. She admits to a daughter with substance abuse concerns. No known history of suicide attempts or completions in her family. Substance Abuse History Pt denies tobacco use in the last year, previously smoked 1/2 PPD for most of her life. She denies all use of alcoholic beverages. She denies current use or prior experimentation with illicit substances Personal History Living Arrangements: Home (with daughter) Living Arrangements Comments: Pt had been living with her daughter, whom she kicked out of her home 1 - 1-1/2 years ago due to her ongoing substance abuse. Daughter has moved back in the last 2 months, due to medical complications. 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) Marital Status: Number Of Children: 5 children, strained relationships with 4 due to her daughter's behavior Beliefs That Will Affect Care: Spiritual History of Legal Problems: Denies Psychological Trauma History Comment: Denies Patient History Medical History Dehydration Gait disturbance (Chronic) Hearing decreased (Chronic) History of malignant neoplasm of breast (Chronic) History of nicotine dependence (Chronic) Intermittent claudication (Chronic) 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) Low back pain (Chronic) Osteoporosis (Chronic) Prediabetes (Chronic) Right knee pain (Chronic) Sleep disturbance (Chronic) Spinal stenosis (Chronic) Statin intolerance (Chronic) Stenosis of iliac artery (Chronic) Vitamin D deficiency disease (Chronic) Breast cancer (Chronic 12/26/13) "Abnormal left breast mammogram Status post ultrasound-guided biopsies 10/06/2013 that revealed benign status post left breast excisional biopsy 12/02/2013 revealing infiltrating ductal carcinoma estrogen receptor positive, progesterone receptor positive, 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, stage pT2 Status post reexcision and sentinel lymph node biopsy 12/26/2013 pN0 (i+) Oncotype DX score of 11 Status post completion of radiation therapy 04/13/2014 received 5006 cGy utilizing hypo-fractionation Required post radiation wound care " Hypercholesteremia (Chronic) Hypertension (Chronic) Depression (Chronic) Hypercalcemia (Chronic) Elevated alkaline phosphatase level (Chronic) Gastritis (Chronic) Surgical History H/O lumbosacral spine surgery (Chronic) S/P radiotherapy (Chronic) Status post right partial knee replacement (Chronic) S/P breast lumpectomy (Chronic) History of breast lump/mass excision History of partial mastectomy of left breast Hx of dilation and curettage Hx of oral surgery Family History Daughter Breast cancer Mother Aortic aneurysm Renal failure Brother Aortic aneurysm Prostate cancer Father Aortic aneurysm Hypertension Pure hypercholesterolemia Grandmother (Maternal) Colon cancer Unknown Diabetes Social History Preferred Language: Irish Communication Ability: Effective Beliefs That Will Affect Care: Spiritual marital status: / Current Living Situation: Alone Current Living Situation Comment: Daughter living with mother temporarily. current occupational status: retired Feels Safe at Home: Yes Smoking Status: Former smoker Tobacco Type: cigarettes ; Hx Alcohol Use: No Hx Substance Use: No Physical Exam Psychiatric: Orientation: alert, oriented x 3 and cooperative Apperance: appropriately dressed (in hospital gown ) and appropriately groomed Overweight, female observed while laying on side in bed. Pt appears mildly uncomfortable, but does not appear to be in acute distress. She is dressed appropriately in a hospital gown. Grooming is adequate, short-hair clean and styled, and wearing corrective lenses. Level of hygiene and hydration appear adequate Eye Contact: good eye contact Motor Behavior: no abnormal motor movements (observed while laying in bed) Speech: normal rate/rhythm/volume of speech (brief responses to questions) Affect: + depressed affect; no anxious affect (not appearing overtly anxious) Mood: + anxious mood ("Not too good" and "I couldn't breathe, I think it is anxiety") Thought Process: goal directed thought process, linear/logical thought process and clear/coherent thought process Thought Content: reality based without delusions and + hopelessness (at times, regarding her home situation); no worthlessness Suicidal Thoughts: denies suicidal thoughts, denies suicidal plan and denies suicidal intent Does admit to wishing she was not having to deal with her current situation, but denies any thoughts of wishing she was or thoughts to harm herself Homicidal Thoughts: denies homicidal thoughts Hallucinations: no auditory hallucinations and no visual hallucinations Cognition: remote memory grossly intact, attention grossly intact and language grossly intact Estimated Inte lligence: consistent with education level Insight: + fair insight Judgement: + fair judgement Vital Signs (Past 24 Hours): Last Vital Signs Temp 36.7 C 11/08/18 08:13 Pulse 76 11/08/18 08:13 Resp 18 11/08/18 08:13 BP 128/78 11/08/18 08:13 Pulse Ox 90 11/08/18 08:13 Review of Systems Constitutional: denied Cardiovascular: reports episodes of tachycardia, unsure of cause Respiratory: reports ongoing SOB, states more sporadic, but "not comfortable" Gastrointestinal: reports mild nausea Neurological: denied Musculoskeletal: reports chronic back pain Psychiatric: denies symptoms other than stated above Total of at least 10 systems reviewed, pertinent positives as above and in HPI. Results & Data Medications Administered Alprazolam (Xanax) 0.25 mg PO Q8H PRN PRN Reason: anxiety Stop: 12/06/18 14:01 Last Admin: 11/07/18 18:22 Dose: 0.25 mg Documented by: [id number] Enoxaparin Sodium (Lovenox) 40 mg SQ Q24H [facility] Stop: 12/06/18 16:59 Last Admin: 11/07/18 17:06 Dose: 40 mg Documented by: [id number] Admin: 11/06/18 18:39 Dose: 40 mg Documented by: [id number] Hydrochlorothiazide (Hctz) 25 mg PO QAM [facility] Stop: 12/07/18 08:59 Last Admin: 11/08/18 08:41 Dose: 25 mg Documented by: [id number] Admin: 11/07/18 08:43 Dose: 25 mg Documented by: [id number] Ertapenem 1,000 mg/ Sodium (Chloride) 60 mls @ 100 mls/hr IV DAILY [facility]; Protocol Stop: 11/12/18 08:59 Last Admin: 11/08/18 08:39 Dose: 100 mls/hr Documented by: [id number] Infusion: 11/07/18 11:32 Dose: 0 mls/hr Documented by: [id number] Admin: 11/07/18 09:00 Dose: 100 mls/hr Documented by: [id number] Lisinopril (Zestril) 40 mg PO QAM [facility] Stop: 12/07/18 08:59 Last Admin: 11/08/18 08:40 Dose: 40 mg Documented by: [id number] Admin: 11/07/18 08:44 Dose: 40 mg Documented by: [id number] Ondansetron HCl (Zofran) 4 mg IV Q6H PRN PRN Reason: Nausea Stop: 12/06/18 14:01 Last Admin: 11/07/18 19:40 Dose: 4 mg Documented by: [id number] Oxycodone/Acetaminophen (Percocet 5mg/325mg) 1 tab PO Q8H [facility] Stop: 11/20/18 14:01 Last Admin: 11/08/18 06:06 Dose: 1 tab Documented by: [id number] Admin: 11/07/18 21:53 Dose: 1 tab Documented by: [id number] Admin: 11/07/18 14:17 Dose: 1 tab Documented by: [id number] Admin: 11/07/18 05:43 Dose: 1 tab Documented by: [id number] Admin: 11/06/18 21:37 Dose: 1 tab Documented by: [id number] Admin: 11/06/18 15:25 Dose: 1 tab Documented by: [id number] Pantoprazole Sodium (Protonix) 40 mg PO BID [facility] Stop: 12/06/18 20:59 Last Admin: 11/08/18 08:40 Dose: 40 mg Documented by: [id number] Admin: 11/07/18 21:53 Dose: 40 mg Documented by: [id number] Admin: 11/07/18 08:45 Dose: 40 mg Documented by: [id number] Admin: 11/06/18 20:41 Dose: 40 mg Documented by: [id number] Prednisone (Prednisone) 20 mg PO DAILY [facility] Stop: 11/11/18 09:01 Last Admin: 11/08/18 08:40 Dose: 20 mg Documented by: [id number] Sertraline HCl (Zoloft) 100 mg PO QAM [facility] Stop: 12/08/18 08:59 Last Admin: 11/08/18 08:40 Dose: 100 mg Documented by: [id number]
[2018-11-08] MEDS ORDERED: predniSONE 20 MG TAB PO STA (11:15)
[2018-11-08] MEDS ORDERED: XOPENEX/ATROVENT 1.25mg/0.5MG NEB COMBO NEB SCH (11:15)
[2018-11-08] MEDS: FLUTICASONE/SALMETEROL 250/50 (ADVAIR) 14 PUFF/1 INHALER INH SCH ×2 (12:07→20:22)
[2018-11-08] MEDS: guaiFENesin 600 MG TABCR PO SCH ×2 (12:07→20:23)
[2018-11-08] MEDS: IPRATROPIUM BROMIDE NEB SOLN 0.02% 2.5 ML VIAL INH SCH ×3 (13:22→19:23)
[2018-11-08] MEDS: LEVALBUTEROL 1.25MG/0.5ML NEB INH SCH ×3 (13:22→19:23)
[2018-11-08] MEDS: ENOXAPARIN INJ 40 MG/0.4 ML SYR SQ SCH (17:03)
--- NOTE | 2018-11-08 19:31 | Hospitalist Progress Note ---
Date of Service November 08, 2018 Assessment & Plan (1) COPD exacerbation: ongoing. IV steroids weaned to PO prednisone today. only received 20mg this AM. will give additional 20mg for total of 40mg today. 2nd exacerbation in <6 months -- needs controller agent. start advair 250/50 1 puff BID. restart xopenex/atrovent nebs q6h. mucinex. treat the anxiety as well. pulmonary toilet. consider echo to r/o pulmonary HTN, etc. recent chest CTA findings noted. needs PFTs post-d/c for formal COPD dx but it is HIGHLY suspected (2) Anxiety: severe due to stressors of living w/ daughter who is alcoholic, poor support system, etc appreciate psych consult zoloft consider buspar scheduled xanax prn (3) UTI (urinary tract infection): ESBL e. coli on ertapenem - day # 2 of such plan 7 day course of abx is sensitive to augmentin, cipro, etc would go w/ augmentin - had rxn to cipro (4) Hypertension: cont home meds (5) DVT prophylaxis: lovenox 40mg daily d/c tomorrow? Subjective patient with periodic episodes of difficulty catching her breath and dyspnea. mild cough. had bronchitis a few months ago. extensive past smoking history. ongoing anxiety - quite severe at times - talks about her home situation with her daughter. this is quite distressing to her. sats checked w/ walking - 92-95% in RA per staff. ambulating. "I don't feel comfortable going home" she said twice today. Review of Systems Constitutional: no fever and no chills Respiratory: + cough, + dyspnea on exertion and + wheezing; no sputum production Cardiovascular: no chest pain, no orthopnea, no paroxysmal nocturnal dyspnea and no edema Gastrointestinal: no abdominal pain Physical Exam Constitutional: no acute distress ENMT: external ear and nose normal, oropharynx normal Respiratory: no respiratory distress Auscultation: + diminished lung sounds and + wheezes (scattered) Cardiovascular: Rate/Rhythm: regular rate and regular rhythm Heart Sounds: normal S1 and normal S2; no murmur Vessels: posterior tibial pulses present and dorsalis pedis pulses present; no JVD Extremities: no edema Gastrointestinal (Abdomen): normal bowel sounds, soft, nontender, no hepatosplenomegaly Psychiatric: Orientation: alert and oriented x 3 Affect: + anxious affect Results & Data Vital Signs (Past 12 Hours) Vital Signs Temp Pulse Pulse Resp BP Pulse Ox 11/08/18 19:24 70 16 95 11/08/18 15:16 36.6 C 72 18 104/55 L 91 11/08/18 13:24 62 18 92 11/08/18 08:13 36.7 C 76 18 128/78 90 PG Care Time/CCT Total # of Minutes Spent Total Time Spent with Patient: Total time spent is greater than 50% in coordination of care (as documented) at patient's floor/unit and/or counseling patient: (1) UTI (urinary tract infection) Urinary tract infection type: acute cystitis Hematuria presence: without hematuria Qualified Code(s): N30.00 - Acute cystitis without hematuria (2) Hypertension Hypertension type: essential hypertension Qualified Code(s): I10 - Essential (primary) hypertension
[2018-11-09] MEDS: IPRATROPIUM BROMIDE NEB SOLN 0.02% 2.5 ML VIAL INH SCH ×3 (01:27→13:03)
[2018-11-09] MEDS: LEVALBUTEROL 1.25MG/0.5ML NEB INH SCH ×3 (01:27→13:03)
[2018-11-09] MEDS: ALPRAZolam 0.25 MG TABLET PO PRN (02:40)
[2018-11-09] MEDS: OXYCODONE/ACETAMINOPHEN 5mg/325mg TAB PO SCH ×2 (06:11→13:50)
[2018-11-09] MEDS: FLUTICASONE/SALMETEROL 250/50 (ADVAIR) 14 PUFF/1 INHALER INH SCH (07:24)
[2018-11-09] MEDS: hydroCHLOROthiazide 25 MG TAB PO SCH (07:24)
[2018-11-09] MEDS: predniSONE 20 MG TAB PO SCH (07:24)
[2018-11-09] MEDS: PANTOprazole 40 MG TAB PO SCH (07:24)
[2018-11-09] MEDS: SERTRALINE HCL 50 MG TABLET PO SCH (07:25)
[2018-11-09] MEDS: guaiFENesin 600 MG TABCR PO SCH (07:25)
[2018-11-09] MEDS: lisinopriL 40 MG TAB PO SCH (07:25)
[2018-11-09] MEDS: ERTAPENEM SODIUM 1,000 MG in SODIUM CHLORIDE 0.9% 50 ML IV SCH (08:19)
--- NOTE | 2018-11-09 11:26 | XRay Report ---
XR chest 2V routine CLINICAL HISTORY: 77 years-old Female presenting with bronchitis; eval pneumonia. TECHNIQUE: PA and lateral views of the chest were obtained. COMPARISON: 11/06/2018. FINDINGS: Atherosclerosis of the aortic arch. Cardiac silhouette normal in size. Heterogeneity of lung parenchy ma. Lungs are hyperinflated. No focal opacity. No pleural effusion or pneumothorax. Degenerative giordano ges of the thoracic spine. Upper abdomen normal. Surgical clips project over the left breast. IMPRESSION: 1. Findings suggest emphysema. No focal infiltrate to suggest pneumonia. Electronically signed by: Lester Mariano M.D. 11/09/2018 11:25 AM
--- NOTE | 2018-11-09 11:40 | Discharge Summary ---
Date of Service date of admission - November 06, 2018 date of discharge - November 09, 2018 Admission HPI Per Admitting Provider 77yo female with a history of HTN, depression/anxiety, GERD, as well as tobacco dependence who presents to the ED with 24 hours of shortness of breath and chills. She noticed that she was feeling more short of breath yesterday. She said the symptoms came on rapidly. No recent URI symptoms such as runny nose or sore throat. She does not really endorse having a cough, no sputum production. No chest pain or pressure. She admits that she is short of breath at rest and more short of breath when she exerts herself. She does not have to walk far to get really short of breath. She says she is really cold and shivering, no fevers. Her appetite is diminished, did not eat much yesterday, nothing this morning. She smoked all her life, she says maybe 1/2 ppd and she quit about one year ago. She does not carry a known diagnosis of COPD or emphysema but she says "I would not be suprised if I had it." She received nebulizers and Solu Medrol in the ED, she did not note much difference in her symptoms. She was experiencing some UTI symptoms a few days ago. Urine culture noted to have grown E coli ESBL. She was on Macrobid as that for outpatient. Again, no history of COPD. She never had PFT to her knowledge. CXR was normal in the ED. CTA chest negative for PE, no pulmonary edema, no infiltrate to suggest pneumonia. Vitals stable except she is slightly hypoxic, dropped to mid 80's on room air. Principal Diagnosis acute bronchitis (suspected undiagnosed COPD, with exacerbation) Discharge Exam Constitutional no acute distress ENMT external ear and nose normal, oropharynx normal Respiratory no respiratory distress Auscultation: + diminished lung sounds and + wheezes (scattered) Cardiovascular Rate/Rhythm: regular rate and regular rhythm Heart Sounds: normal S1 and normal S2; no murmur Vessels: posterior tibial pulses present and dorsalis pedis pulses present; no JVD Extremities: no edema Gastrointestinal (Abdomen) normal bowel sounds, soft, nontender, no hepatosplenomegaly Psychiatric Orientation: alert and oriented x 3 Affect: + anxious affect Discharge Data Allergies Allergy/AdvReac Type Severity Reaction Status Date / Time Cipro AdvReac Intermediate REDNESS Verified 09/24/17 08:08 ALONG VEIN ciprofloxacin AdvReac Intermediate REDNESS Verified 11/16/18 08:41 ALONG VEIN atorvastatin AdvReac Unknown muscle pain Verified 11/16/18 08:41 simvastatin AdvReac Unknown muscle pain Verified 11/16/18 08:41 Consultations psychiatry Ordered Studies CTA chest - IMPRESSION: 1. No pulmonary emboli identified. 2. No acute intrathoracic findings. 3. Mild emphysema. 4. Moderate coronary artery calcification. Echocardiogram - * EF 60-65% * mild pulmonary HTN * no regional wall motion abnormalities * grade 1 diastolic dysfuncti Hospital Course (1) COPD exacerbation: At minimum had acute bronchitis. There is strong suspicion that she has underlying, undiagnosed COPD however and thus her symptoms would have been due to COPD exacerbation. Received IV steroids, nebs, etc with improved symptoms. She will complete a prednisone taper after discharge. Since this was her 2nd exacerbation in <6 months -- needs controller agent. Thus, started advair 250/50 1 puff BID. Echo with mild pulmonary HTN only. Did not need O2 at discharge. Recent chest CTA did NOT show PEs. Will need PFTs post-d/c for formal COPD diagnosis but it is HIGHLY suspected she has such. The augmentin for her UTI will also cover the lungs if any bacterial source is present there. (2) Anxiety: severe. due to stressors of living with daughter who is alcoholic, poor support system, etc seen by psychiatry - zoloft increased to 100mg daily. buspar 5mg prn prescribed at discharge. encouraged patient to wean off xanax. outpatient counseling advised. (3) UTI (urinary tract infection): due to ESBL e. coli Received 4 days of ertapenem and will complete 3 days of augmentin post- discharge. (4) Hypertension: continue home meds Total Time Total Time Spent Total Time Spent (In Minutes): 40 Total Time Includes: Examination of the Patient, Discharge Planning and Medication Reconciliation Discharge Plan Discharge Items Patient Disposition: Home - Self-Care Reason For Visit: COPD EXACERBATION Discharge Diagnosis: 1. suspected COPD with "exacerbation" 2. urinary tract infection - resolving 3. severe anxiety Discharge Goals: Diagnostic testing and Therapeutic intervention Activity: As commented below Activity Comment: take it easy for about 1 week then gradually increase your activity Non-emergency contact: Primary Care Provider and Lockstitch Back Maker Call non-emergency contact if: you have any medication questions, your symptoms worsen and your temperature is above 100.5 Follow-up/Referrals: [facility] [Outside] - 11/24/18 9:00 am (Appointment with Seema Amaya PA-C) Annette Dowd MD [Primary Care Provider] - 11/12/18 11:30 am (Please, follow up with Dr. Devi on ThursdayNovember 12 at 11:30 am. *If you need to change this appointment, call the office at [phone]. A CARDIAC EVENT MONITOR, INCLUDING EASY TO FOLLOW INSTRUCTIONS, WILL BE MAILED TO YOUR HOME. THE RESULTS WILL BE SENT TO DR. DEVI.) Zeenat Granados PA-C [Physician Retail Receiving Clerk] - 11/23/18 8:10 am (Please, follow up at [facility] with Zeenat Granados PA-C on ThursdayNovember 23 at 8:30 am (arrive 8:10 am). *Disregard the [facility] address listed above. The current address is: [address] OF [facility]. THIS IS THE BIG BUILDING LOCATED NEXT TO THIS HOSPITAL. This is the same office building where you go to see Dr. Devi. If you need to change this appointment, call the office at [phone].) Diet: Regular Addtl Provider Instructions: You were admitted for cough and shortness of breath along with troubles with anxiety. We suspect you had, at the very minimum, acute bronchitis (inflammation of your bronchiole tubes). You also may have undiagnosed "COPD" (emphysema) from prior smoking. Your lung symptoms improved with steroids, neb treatments, and time. You were seen by the psychiatrist for your anxiety. Recommendations - 1. take prednisone for 6 more days starting TOMORROW, 11/10/18. 2. take amoxicillin-clavulanate antibiotics for 3 more days starting TOMORROW morning. this is for your urinary tract infection. 3. for suspected COPD (emphysema) take - * advair 1 puff twice daily every day. Rinse your mouth with water after its use to prevent yeast build-up in the mouth. * take combivent inhaler 1 puff every 6 hours as needed for cough/wheeze/shortness of breath; ask the pharmacist how to use it 4. you can take wllh-wwe-bsowavk mucinex up to 1200mg twice daily for cough/congestion. 5. for anxiety - * may use buspar (buspirone) 5mg up to three times a day as needed * please stop the xanax (alprazolam) if possible * increase your zoloft (sertraline) to 100mg daily; new script provided * strongly consider counseling/therapy or speaking to your workers compensation claims analyst at your [facility] 6. please stop the antibiotic you were taking before coming to the hospital 7. your echo (heart ultrasound) was largely normal 8. you will be receiving a 30-day heart monitor in the mail to see what the fluttering of your heart is. It will come with instructions. The results go to your family doctor. follow-up - see separate section return to [facility] if - * you have worsening shortness of breath despite taking your usual medications * you have severe chest pain or heart fluttering * you have severe anxiety not responding to your medications * you develop severe diarrhea * you develop fevers over 100.5 degrees * any other concerns Prescriptions: New fluticasone propion-salmeterol [Advair Diskus] 250-50 mcg/dose Blister With Device 1 puff inhalation BID Qty: 1 RF: 2 Combivent Respimat 20-100 mcg/actuation mist 1 puffs INH QID PRN (Reason: cough/wheeze/shortness of breath) Qty: 4 RF: 2 prednisone 10 mg tablet 10 mg PO DIRECTED Qty: 12 RF: 0 buspirone 5 mg Tablet 5 mg PO TID PRN (Reason: Anxiety) Qty: 20 RF: 0 sertraline 100 mg tablet 100 mg PO DAILY Qty: 30 RF: 2 Continued amlodipine 5 mg tablet 5 mg PO DAILY PRN (Reason: elevated blood pressure) Qty: 90 RF: 0 alprazolam [Xanax] 0.25 mg tablet 0.25 mg PO DAILY PRN (Reason: anxiety) Qty: 30 RF: 0 oxycodone-acetaminophen 5-325 mg tablet 1 tab PO Q8H Qty: 21 RF: 0 pantoprazole 40 mg tablet,delayed release (DR/EC) 40 mg PO BID Qty: 60 RF: 2 hydrochlorothiazide 25 mg Tablet 25 mg PO QAM RF: 0 lisinopril 40 mg tablet 40 mg PO QAM RF: 0 Discontinued nitrofurantoin macrocrystal 100 mg capsule 100 mg PO BID 10 Days Qty: 20 RF: 0 Stand-Alone Forms: [facility], [facility] Discharge Orders: Discharge Order (Routine); Ordered 11/09/18 Ordered By: Hussein Hirsch Admission Data Admit Date/Time: 11/06/18 11:49 Attending Provider: Hussein Hirsch Admit Provider: Rubio Simental Primary Care Provider: Annette Dowd V. Other Providers: Wilson Gomez Service: Medical Other Interventions: Discharge Summary Assessment (RN) Last Done: 11/09/18 16:06 Pending Studies at Discharge: No DC Date/Time DO NOT enter until pt leaves facility: 11/09/18 16:30
--- NOTE | 2018-11-09 13:10 | Communication Note ---
Date of Service: November 09, 2018 Reviewed interval history with psychiatric nurse liaison. Referral was made to [facility] for psychiatric medication management. Pt was scheduled for an charlene ointment on 11/24/18 at 0900. We were informed that [facility] is not able to accept referrals for therapy at this time. We are suggesting the patient inform her prescriber of her interest for therapy at her intake appointment - in hopes she is added to an internal waiting list. Pt was provided with a booklet for mental health services in the [facility], which she is encouraged to explore. Multiple attempts were made for therapy referral to different offices, with either no availability or not accepting patient's insurance.
== END 2018-11-09 16:30 | disposition home or self-care (01) | DRG 190 ==
LOC: ED 08:45 → 3W 11:49 → SUATTDRO 11:49 → 3W 13:19

== ENCOUNTER 2019-01-15 13:15 | Inpatient (IN) ==
[2019-01-15] MEDS ORDERED: ALBUT/IPRATROP 3MG/0.5MG NEB 3 ML VIAL NEB STA ×3 (13:41→15:14)
[2019-01-15 14:13] LABS: Basophils # (auto) 0.03 K/uL (0-0.2); Basophils % (auto) 0.2 %; Eosinophils # (auto) 0.04 K/uL (0-0.5); Eosinophils % (auto) 0.3 %; Hematocrit (blood only) 43.5 % (37-47); Hemoglobin 15.1 g/dL (12.0-16.0); Immature Granulocytes # (auto) 0.04 K/uL (0.00-0.02); Immature Granulocytes % (auto) 0.3 %; Lymphocytes # (auto) 1.99 K/uL (1.2-3.4); Lymphocytes % (auto) 13.9 %; Mean Corpuscular Hemoglobin 31.5 pg (25-34); Mean Corpuscular Hgb Conc 34.7 g/dL (32-36); Mean Corpuscular Volume 90.8 fL (80-100); Monocytes # (auto) 1.27 K/uL (0.11-0.59); Monocytes % (auto) 8.9 %; Neutrophils # (auto) 10.98 K/uL (1.4-6.5); Neutrophils % (auto) 76.4 %; Platelet Count 192 K/uL (130-400); RDW Coefficient of Variation 13.5 % (11.5-14.5); RDW Standard Deviation 45.1 fL (36.4-46.3); Red Blood Count 4.79 M/uL (4.2-5.4); White Blood Count 14.35 K/uL (4.8-10.8)
[2019-01-15 14:32] LABS: HCO3 VBG 29 mmol/L; PCO2 VBG 44 mmHg (38-50); PO2 VBG 25 mmHg; pH VBG 7.44 (7.36-7.41)
[2019-01-15 14:34] LABS: Oxygen Saturation VBG < 60.0 %
[2019-01-15 14:46] LABS: BUN Creatinine Ratio 19.7 (10-20); Blood Urea Nitrogen 15 mg/dl (7-18); Calcium 9.7 mg/dl (8.5-10.1); Carbon Dioxide 28 mmol/L (21-32); Chloride 102 mmol/L (98-107); Est GFR (African American) 85.7; Glucose 95 mg/dl (70-99); Sodium 137 mmol/L (136-145)
[2019-01-15 14:50] LABS: Influenza A virus by PCR Neg for Influ A (Neg); Influenza B virus by PCR Neg for Influ B (Neg)
--- NOTE | 2019-01-15 14:54 | XRay Report ---
XR chest 2V PA/lateral HISTORY: 78 years-old Female cough fever RML L lung rales rhonchi ro pna acute cough with fever COMPARISON: Chest radiograph 11/09/2018 TECHNIQUE: PA and lateral views of the chest FINDINGS: Cardiac silhouette appears normal. Mild asymmetric left hilar prominence is unchanged. Chronic inters titial opacities. No pneumothorax, pleural effusion or overt pulmonary edema. No new focal airspace c onsolidation. Hyperinflation with diaphragmatic flattening. Suggested emphysema. Surgical clips proje ct over the left axilla. Degenerative changes of the shoulders and spine. IMPRESSION: No acute process. The above report was generated using voice recognition software. It may contain grammatical, syntax o r spelling errors. Electronically signed by: Tyler Owen M.D. 01/15/2019 2:53 PM
[2019-01-15] MEDS ORDERED: predniSONE 50 MG TAB PO STA (14:56)
[2019-01-15] MEDS ORDERED: AZITHROMYCIN 250 MG TAB PO ONE (15:14)
--- NOTE | 2019-01-15 16:14 | History & Physical Report ---
Date of Service January 15, 2019 Assessment & Plan (1) COPD exacerbation: Secondary to viral infection admit med tele No acute process on cxr, flu PCR negative Azithromycin, duonebs, titrate O2 as needed - patient wears chronic O2 at night NSS @ 100 ml/hr (2) Hypoxia: As above Pulse ox 87% on RA in ED (3) Anxiety: and depression Continue home sertraline (4) Hypertension: continue lisinopril, hold hctz for dehydration (5) Muscular aches: check CK Tylenol, morphine for pain control (6) DVT prophylaxis: SCDs, enoxaparin DNR History of Present Illness Ms. Thomas presents today for sob, muscle aches, productive cough with brown/yellow sputum since Thursday or Thursday. She has not had much appetite and has not been eating or drinking much. No nausea, vomiting or change in bowels or bladder. No fevers, sore throat or rhinorrhea. The muscle aches are very painful and limiting range of motion in her right shoulder. They are all over her body but particularly shoulders, neck and left hip. 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, daughter lives with her Family: renal failure Primary Care Provider: Annette Dowd MD Allergies Allergy/AdvReac Type Severity Reaction Status Date / Time Cipro AdvReac Intermediate REDNESS Verified 09/24/17 08:08 ALONG VEIN ciprofloxacin AdvReac Intermediate REDNESS Verified 12/07/18 09:34 ALONG VEIN atorvastatin AdvReac Unknown muscle pain Verified 12/07/18 09:34 simvastatin AdvReac Unknown muscle pain Verified 12/07/18 09:34 Home Medications Home Medications Medication Instructions Recorded Confirmed Type hydrochlorothiazide 25 mg PO QAM 11/06/18 01/15/19 History lisinopril 40 mg PO QAM 11/06/18 01/15/19 History buspirone 5 mg PO TID PRN #20 tab 11/09/18 01/15/19 Rx fluticasone propion-salmeterol 1 puff INHALATION BID #1 inhaler 11/09/18 01/15/19 Rx [Advair Diskus] sertraline 100 mg tablet 100 mg PO DAILY tab 12/03/18 01/15/19 History albuterol sulfate HFA 90 2 puffs INH Q4H PRN #18 gm 12/07/18 01/15/19 Rx mcg/actuation aerosol inhaler tiotropium bromide 2.5 2 puffs INH DAILY #4 gm 12/07/18 01/15/19 Rx mcg/actuation mist for inhalation Oxygen Home #2 liter 12/22/18 01/15/19 Rx Past Med/Surg History Medical History Gait disturbance (Chronic) Hearing decreased (Chronic) History of malignant neoplasm of breast (Chronic) History of nicotine dependence (Chronic) Intermittent claudication (Chronic) Lesion of right [place] (Chronic) Low back pain (Chronic) Osteoporosis (Chronic) Prediabetes (Chronic) Right knee pain (Chronic) Sleep disturbance (Chronic) Spinal stenosis (Chronic) Statin intolerance (Chronic) Stenosis of iliac artery (Chronic) Vitamin D deficiency disease (Chronic) Breast cancer (Chronic 12/26/13) "Abnormal left breast mammogram Status post ultrasound-guided biopsies 10/06/2013 that revealed benign status post left breast excisional biopsy 12/02/2013 revealing infiltrating ductal carcinoma estrogen receptor positive, progesterone receptor positive, 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, stage pT2 Status post reexcision and sentinel lymph node biopsy 12/26/2013 pN0 (i+) Oncotype DX score of 11 Status post completion of radiation therapy 04/13/2014 received 5006 cGy utilizing hypo-fractionation Required post radiation wound care " Hypercholesteremia (Chronic) Hypertension (Chronic) Depression (Chronic) Hypercalcemia (Chronic) Elevated alkaline phosphatase level (Chronic) Dehydration (Resolved) Gastritis (Resolved) Surgical History H/O lumbosacral spine surgery (Chronic) S/P radiotherapy (Chronic) Status post right partial knee replacement (Chronic) S/P breast lumpectomy (Chronic) History of breast lump/mass excision History of partial mastectomy of left breast Hx of dilation and curettage Hx of oral surgery Social History Preferred Language: Georgian Communication Ability: Effective Beliefs That Will Affect Care: Spiritual marital status: / Current Living Situation: Alone Current Living Situation Comment: Daughter living with mother temporarily. current occupational status: retired Feels Safe at Home: Yes Smoking Status: Current every day smoker Tobacco Type: cigarettes ; Hx Alcohol Use: No Hx Substance Use: No Review of Systems Review of Systems: All systems reviewed & are unremarkable except as noted in HPI & below Physical Exam Physical Exam: General: no distress Eyes: normal inspection, PERLL Respiratory: chest non tender, coarse bases bilaterally, no respiratory distress, no accessory muscle use Cardiac: regular rate and rhythm, no rub or gallop, no murmur, no edema, no jvd GI/: active bowel sounds, no abd pain or tenderness, soft, non distended Extremities: decreased range of motion right arm and tender, otherwise strength normal Neuro:oriented x 3, moves all extremities Psych: alert, normal mood and affect Skin: normal color, dry Results & Data Vital Signs (Past 12 Hours) Vital Signs Temp Pulse Pulse Resp BP Pulse Ox Pulse Ox 01/15/19 15:38 93 H 16 96 01/15/19 15:30 91 H 19 141/83 H 99 01/15/19 15:29 89 16 94 01/15/19 15:09 87 L 01/15/19 15:08 95 H 22 181/78 H 91 01/15/19 14:30 90 31 H 159/132 H 89 L 01/15/19 14:05 98 H 25 H 91 01/15/19 14:03 91 H 26 H 139/87 91 01/15/19 13:48 90 14 91 01/15/19 13:28 37.1 C 98 H 16 124/81 91 Code Status & VTE Plan Code Status DNR PG Care Time/CCT Total # of Minutes Spent Total Time Spent with Patient: Total time spent is greater than 50% in coordination of care (as documented) at patient's floor/unit and/or counseling patient: (1) Hypertension Hypertension type: essential hypertension Qualified Code(s): I10 - Essential (primary) hypertension
--- NOTE | 2019-01-15 19:04 | Emergency Department Note ---
Entered by Meño Jarquin acting as a scribe for Som Felton History of Present Illness General Chief complaint: Cough Stated complaint: COUGH - WEAK - ACHY Time Seen by Provider: 01/15/19 13:31 Source: patient History of Present Illness Onset (ago): day(s) 3 Location: mouth (cough) Pain Consistency: + other (worsening) Maximum Pain Intensity: 8 Quality: + other (coughing producing green and brown mucous) Associated symptoms: + denies other symptoms (coughing up any blood) and + chest pain; no fever/chills and no shortness of breath The patient is a 78 year old F who presents to the Emergency Room with complaints of a worsening cough that started 3 days ago. She states that her coughing is causing her to experience chest pain. She adds that her coughing produces green and brown mucous. She denies coughing up any blood. She also denies that she is currently experiencing fevers, shortness of breath, and chills. She notes that she wanted to get the flu shot this week but was not told that she could not currently receive it due to her coughing. She states that she is a former smoker but adds that she recently smoked 6 cigarettes. She adds that she is currently on the medications of Lisinopril and Buspirone. Home Medications Home Medications Medication Instructions Recorded Confirmed Type hydrochlorothiazide 25 mg PO QAM 11/06/18 01/15/19 History lisinopril 40 mg PO QAM 11/06/18 01/15/19 History buspirone 5 mg PO TID PRN #20 tab 11/09/18 01/15/19 Rx fluticasone propion-salmeterol 1 puff INHALATION BID #1 inhaler 11/09/18 01/15/19 Rx [Advair Diskus] sertraline 100 mg tablet 100 mg PO DAILY tab 12/03/18 01/15/19 History albuterol sulfate HFA 90 2 puffs INH Q4H PRN #18 gm 12/07/18 01/15/19 Rx mcg/actuation aerosol inhaler tiotropium bromide 2.5 2 puffs INH DAILY #4 gm 12/07/18 01/15/19 Rx mcg/actuation mist for inhalation Oxygen Home #2 liter 12/22/18 01/15/19 Rx Allergies Allergy/AdvReac Type Severity Reaction Status Date / Time Cipro AdvReac Intermediate REDNESS Verified 09/24/17 08:08 ALONG VEIN ciprofloxacin AdvReac Intermediate REDNESS Verified 12/07/18 09:34 ALONG VEIN atorvastatin AdvReac Unknown muscle pain Verified 12/07/18 09:34 simvastatin AdvReac Unknown muscle pain Verified 12/07/18 09:34 Past Med/Surg History Medical History Gait disturbance (Chronic) Hearing decreased (Chronic) History of malignant neoplasm of breast (Chronic) History of nicotine dependence (Chronic) Intermittent claudication (Chronic) 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) Low back pain (Chronic) Osteoporosis (Chronic) Prediabetes (Chronic) Right knee pain (Chronic) Sleep disturbance (Chronic) Spinal stenosis (Chronic) Statin intolerance (Chronic) Stenosis of iliac artery (Chronic) Vitamin D deficiency disease (Chronic) Breast cancer (Chronic 12/26/13) "Abnormal left breast mammogram Status post ultrasound-guided biopsies 10/06/2013 that revealed benign status post left breast excisional biopsy 12/02/2013 revealing infiltrating ductal carcinoma estrogen receptor positive, progesterone receptor positive, 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, stage pT2 Status post reexcision and sentinel lymph node biopsy 12/26/2013 pN0 (i+) Oncotype DX score of 11 Status post completion of radiation therapy 04/13/2014 received 5006 cGy utilizing hypo-fractionation Required post radiation wound care " Hypercholesteremia (Chronic) Hypertension (Chronic) Depression (Chronic) Hypercalcemia (Chronic) Elevated alkaline phosphatase level (Chronic) Dehydration (Resolved) Gastritis (Resolved) Surgical History H/O lumbosacral spine surgery (Chronic) S/P radiotherapy (Chronic) Status post right partial knee replacement (Chronic) S/P breast lumpectomy (Chronic) History of breast lump/mass excision History of partial mastectomy of left breast Hx of dilation and curettage Hx of oral surgery Social History Preferred Language: Afghan Communication Ability: Effective Electrical Sign Wirer Required: No Beliefs That Will Affect Care: None marital status: / Current Living Situation: Alone Current Living Situation Comment: Daughter living with mother temporarily. current occupational status: retired Other Information That Helps Us Care for You: No Feels Safe at Home: Yes Safety Concerns: Feels Safe At This Time Smoking Status: Former smoker Tobacco Type: cigarettes ; Do You Dip or Chew Tobacco: No ; Smoking End Date: 2017 ; Second Hand Exposure: No ; Tobacco Cessation Education Requested by Patient: No Hx Alcohol Use: No Hx Substance Use: No Review of Systems See HPI for pertinent positives & negatives. and A total of 10 systems reviewed and were otherwise negative Physical Exam Vital Signs Vital Signs - 24 hr 01/15/19 13:28 01/15/19 13:48 01/15/19 14:03 Temperature 37.1 C Temperature Source Oral Sepsis Recent Fever Within 48 Hours No Sepsis Action Taken by Nursing No Action Required Pulse Rate 98 H 91 H Pulse Rate [Finger] 90 Pulse Rate from SpO2 Sensor 92 H Pulse Rhythm Regular Pulse Strength Normal Respiratory Rate 16 14 26 H Respiratory Effort / Characteristics Non-Labored Spontaneous Respiratory Depth Normal Respiratory Pattern Regular Blood Pressure 124/81 139/87 Blood Pressure Mean 95 104 Blood Pressure Position Sitting Pulse Oximetry 91 91 91 Pulse Oximetry [Recovery] Oxygen Delivery Method Room Air Room Air Room Air Oxygen Flow Rate 01/15/19 14:05 01/15/19 14:30 01/15/19 15:08 Temperature Temperature Source Sepsis Recent Fever Within 48 Hours Sepsis Action Taken by Nursing Pulse Rate 98 H 90 95 H Pulse Rate [Finger] Pulse Rate from SpO2 Sensor 91 H 98 H Pulse Rhythm Regular Pulse Strength Respiratory Rate 25 H 31 H 22 Respiratory Effort / Characteristics Respiratory Depth Respiratory Pattern Blood Pressure 159/132 H 181/78 H Blood Pressure Mean 141 112 Blood Pressure Position Pulse Oximetry 91 89 L 91 Pulse Oximetry [Recovery] Oxygen Delivery Method Room Air Oxygen Flow Rate 01/15/19 15:09 01/15/19 15:29 01/15/19 15:30 Temperature Temperature Source Sepsis Recent Fever Within 48 Hours Sepsis Action Taken by Nursing Pulse Rate 91 H Pulse Rate [Finger] 89 Pulse Rate from SpO2 Sensor 93 H Pulse Rhythm Pulse Strength Respiratory Rate 16 19 Respiratory Effort / Characteristics Non-Labored Spontaneous Respiratory Depth Respiratory Pattern Blood Pressure 141/83 H Blood Pressure Mean 102 Blood Pressure Position Pulse Oximetry 94 99 Pulse Oximetry [Recovery] 87 L Oxygen Delivery Method Room Air Nasal Cannula Oxygen Flow Rate 2 01/15/19 15:38 01/15/19 16:00 01/15/19 16:30 Temperature Temperature Source Sepsis Recent Fever Within 48 Hours Sepsis Action Taken by Nursing Pulse Rate 96 H 100 H Pulse Rate [Finger] 93 H Pulse Rate from SpO2 Sensor 95 H 102 H Pulse Rhythm Pulse Strength Respiratory Rate 16 25 H 27 H Respiratory Effort / Characteristics Non-Labored Spontaneous Respiratory Depth Respiratory Pattern Blood Pressure 138/69 151/94 H Blood Pressure Mean 92 113 Blood Pressure Position Pulse Oximetry 96 94 95 Pulse Oximetry [Recovery] Oxygen Delivery Method Nasal Cannula Nasal Cannula Nasal Cannula Oxygen Flow Rate 2 2 2 GENERAL: She is oriented to person, place, and time. She appears well-developed and well-nourished. She does not appear distressed. HENT: Exam performed. - Head: Normocephalic and atraumatic. - Right Ear: External ear normal. No mastoid tenderness. - Left Ear: External ear normal. No mastoid tenderness. - Mouth/Throat: The oropharynx is clear and moist. No trismus in the jaw. No dental abscesses or uvula swelling. No oropharyngeal exudate or tonsillar abscesses. EYES: Conjunctivae and EOM are normal. Pupils are equal, round, and reactive to light. Right eye exhibits no discharge. Left eye exhibits no discharge. No scleral icterus. NECK: Normal range of motion. Neck supple. No JVD present. No spinous process tenderness present. No carotid bruit present. No rigidity. No tracheal deviation and normal range of motion present. No Brudzinski's sign and no Kernig's sign noted. CV: Normal rate, regular rhythm, normal heart sounds and intact distal pulses. There is no peripheral edema. Palpable radial pulses bue. PULM/CHEST: Effort normal. No respiratory distress. No stridor. She has no wheezes. She has rales and rhonchi over the left lung. Chest Wall: She exhibits no tenderness. ABD: The abdomen is soft. Bowel sounds are normal. She has no distension. No mass is present. There is no tenderness. There is no rebound, no guarding, no Taylor's sign and no tenderness at McBurney's point. Rovsig negative MUSC/SKEL: Normal range of motion. There is no peripheral edema, tenderness or deformity. LYMPH: No cervical adenopathy. NEURO: She is alert and oriented to person, place, and time. She has normal s trength. No cranial nerve deficit or sensory deficit. Coordination and gait normal. GCS eye subscore is 4. GCS verbal subscore is 5. GCS motor subscore is 6. cerbellar tests wnl. SKIN: Skin is warm and dry. She is not diaphoretic. PSYCH: She has a normal mood and affect. Her behavior is normal. Judgment and thought content normal. Course 1333: The patient was evaluated in room C5. A complete history and physical exam was performed. 1510: The patient reports no relief after the albuterol treatment. The labs and imaging are within normal limits. An ambulatory pulse ox was performed which caused the patient to drop to 87%. The patient was started on 2L of oxygen nasal canula. The patient was admitted to the hospital service. The patient will receive a repeat duoneb treatment. Steroids will also be given his patient's symptoms are thought to be caused by COPD exacerbation. Azithromycin also given. I reviewed the patient's case with Dr. Kingsley, [facility] Hospitalist. He will evaluate the patient for further management. Administered Medications Discontinued Medications Albuterol (Duoneb) 3 ml NEB NOW STA Stop: 01/15/19 13:42 Last Admin: 01/15/19 13:47 Dose: 3 ml Documented by: [id number] Albuterol (Duoneb) 3 ml NEB NOW STA Stop: 01/15/19 15:14 Last Admin: 01/15/19 15:27 Dose: 3 ml Documented by: [id number] Albuterol (Duoneb) 3 ml NEB NOW STA Stop: 01/15/19 15:15 Last Admin: 01/15/19 15:28 Dose: 3 ml Documented by: [id number] Azithromycin (Zithromax) 500 mg PO NOW ONE Stop: 01/15/19 15:15 Last Admin: 01/15/19 15:30 Dose: 500 mg Documented by: [id number] Prednisone (Prednisone) 50 mg PO NOW STA Stop: 01/15/19 14:57 Last Admin: 01/15/19 15:11 Dose: 50 mg Documented by: [id number] Medical Decision Making Medical Records Attestation: I reviewed the patient's medical records. Home Medications Current Medication List: was personally reviewed by me Laboratory Data Attestation: I reviewed the patient's lab results. Result diagrams: 01/15/19 14:00 01/15/19 14:00 Lab Results 01/15/19 01/15/19 01/15/19 Range/Units 14:00 14:00 14:00 WBC 14.35 H (4.8-10.8) K/uL RBC 4.79 (4.2-5.4) M/uL Hgb 15.1 (12.0-16.0) g/dL Hct 43.5 (37-47) % MCV 90.8 (80-100) fL MCH 31.5 (25-34) pg MCHC 34.7 (32-36) g/dL RDW Std Deviation 45.1 (36.4-46.3) fL RDW Coeff of Hipoilto 13.5 (11.5-14.5) % Plt Count 192 (130-400) K/uL MPV 10.0 (7.4-10.4) fL Immature Gran % (Auto) 0.3 % Neut % (Auto) 76.4 % Lymph % (Auto) 13.9 % [place] % (Auto) 8.9 % Eos % (Auto) 0.3 % Baso % (Auto) 0.2 % Immature Gran # (Auto) 0.04 H (0.00-0.02) K/uL Neut # (Auto) 10.98 H (1.4-6.5) K/uL Lymph # (Auto) 1.99 (1.2-3.4) K/uL [place] # (Auto) 1.27 H (0.11-0.59) K/uL Eos # (Auto) 0.04 (0-0.5) K/uL Baso # (Auto) 0.03 (0-0.2) K/uL VBG pH (7.36-7.41) VBG pCO2 (38-50) mmHg VBG pO2 mmHg VBG HCO3 mmol/L VBG O2 Saturation % VBG Base Excess mEq/L Barometric Pressure mm/Hg Sodium 137 (136-145) mmol/L Potassium (3.5-5.1) mmol/L Chloride 102 (98-107) mmol/L Carbon Dioxide 28 (21-32) mmol/L Anion Gap 7.0 (3-11) BUN 15 (7-18) mg/dl Creatinine 0.77 (0.6-1.2) mg/dl Est Cr Clr Drug Dosing Not Reportable Est GFR ( Amer) 85.7 Est GFR (Non-Af Amer) 74.0 BUN/Creatinine Ratio 19.7 (10-20) Glucose 95 (70-99) mg/dl Calcium 9.7 (8.5-10.1) mg/dl Influenza Type A (PCR) Neg for Influ A (Neg) Influenza Type B (PCR) Neg for Influ B (Neg) 01/15/19 Range/Units 14:18 WBC (4.8-10.8) K/uL RBC (4.2-5.4) M/uL Hgb (12.0-16.0) g/dL Hct (37-47) % MCV (80-100) fL MCH (25-34) pg MCHC (32-36) g/dL RDW Std Deviation (36.4-46.3) fL RDW Coeff of Hipolito (11.5-14.5) % Plt Count (130-400) K/uL MPV (7.4-10.4) fL Immature Gran % (Auto) % Neut % (Auto) % Lymph % (Auto) % [place] % (Auto) % Eos % (Auto) % Baso % (Auto) % Immature Gran # (Auto) (0.00-0.02) K/uL Neut # (Auto) (1.4-6.5) K/uL Lymph # (Auto) (1.2-3.4) K/uL [place] # (Auto) (0.11-0.59) K/uL Eos # (Auto) (0-0.5) K/uL Baso # (Auto) (0-0.2) K/uL VBG pH 7.44 H (7.36-7.41) VBG pCO2 44 (38-50) mmHg VBG pO2 25 mmHg VBG HCO3 29 mmol/L VBG O2 Saturation < 60.0 % VBG Base Excess 4.0 mEq/L Barometric Pressure 733.3 mm/Hg Sodium (136-145) mmol/L Potassium (3.5-5.1) mmol/L Chloride (98-107) mmol/L Carbon Dioxide (21-32) mmol/L Anion Gap (3-11) BUN (7-18) mg/dl Creatinine (0.6-1.2) mg/dl Est Cr Clr Drug Dosing Est GFR ( Amer) Est GFR (Non-Af Amer) BUN/Creatinine Ratio (10-20) Glucose (70-99) mg/dl Calcium (8.5-10.1) mg/dl Influenza Type A (PCR) (Neg) Influenza Type B (PCR) (Neg) Imaging Data Radiologist's Impression: Radiology results as stated below per my review and the radiologist's interpretation: XR chest 2V PA/lateral HISTORY: 78 years-old Female cough fever RML L lung rales rhonchi ro pna acute cough with fever COMPARISON: Chest radiograph 11/09/2018 TECHNIQUE: PA and lateral views of the chest FINDINGS: Cardiac silhouette appears normal. Mild asymmetric left hilar prominence is unchanged. Chronic interstitial opacities. No pneumothorax, pleural effusion or overt pulmonary edema. No new focal airspace consolidation. Hyperinflation with diaphragmatic flattening. Suggested emphysema. Surgical clips project over the left axilla. Degenerative changes of the shoulders and spine. IMPRESSION: No acute process. The above report was generated using voice recognition software. It may contain grammatical, syntax or spelling errors. Electronically signed by: Tyler Owen M.D. 01/15/2019 2:53 PM ECG Data Attestation: I personally reviewed and interpreted this ECG as follows: Indication: + chest pain Rate (beats per minute): 87 Rhythm: + sinus rhythm ECG Intervals/blocks: + Normal QRS ECG ST segments: no ST depression and no ST elevation ECG Findings: + Other (NM, QRS, and QTc intervals within normal limits) Blood Pressure Blood Pressure Findings: Elevated blood pressure Blood Pressure Disposition: further management by hospitalist MDM Narrative The patient reports no relief after the albuterol treatment. The labs and imaging are within normal limits. An ambulatory pulse ox was performed which caused the patient to drop to 87%. The patient was started on 2L of oxygen nasal canula. The patient was admitted to the hospital service. The patient will receive a repeat duoneb treatment. Steroids will also be given his patient's symptoms are thought to be caused by COPD exacerbation. Azithromycin also given. I reviewed the patient's case with Dr. Kingsley, [facility] Hospitalist. He will evaluate the patient for further management. Impression & Plan COPD exacerbation, Hypoxia Critical Care Time Critical Care Time: Yes Total Critical Care Time: 36 I have personally spent 36 minutes of critical care time in the direct management of this patient. This includes bedside care, interpretation of diagnostic studies, and testing, discussion with consultants, patient, and family members, and other required patient management activities. This 36 minutes is in excess of all separately billable procedures. Discharge Plan Visit Data *Final* Discharge Date/Time: 01/15/19 17:49 Chief Complaint: Cough Stated Complaint: COUGH - WEAK - ACHY ED Provider: Som Feltno Discharge Problem: COPD exacerbation, Hypoxia Patient Disposition: Admitted As Inpatient Discharge Instructions Interventions: ED Discharge Assessment Last Done: 01/15/19 17:49 The scribe's documentation has been prepared under my direction and personally reviewed by me in its entirety. I confirm that the note above accurately reflects all work, treatment, procedures, and medical decision making performed by me.
[2019-01-15] MEDS: SODIUM CHLORIDE 0.9% 1000ML 1,000 ML IV SCH (19:39)
[2019-01-15] MEDS: ALBUT/IPRATROP 3MG/0.5MG NEB 3 ML VIAL NEB SCH (19:48)
[2019-01-15] MEDS: FLUTICASONE/SALMETEROL 250/50 (ADVAIR) 14 PUFF/1 INHALER INH SCH (21:13)
[2019-01-16] MEDS: SODIUM CHLORIDE 0.9% 1000ML 1,000 ML IV SCH ×2 (04:41→17:01)
[2019-01-16] MEDS: ACETAMINOPHEN 325 MG TAB PO PRN ×2 (05:07→17:15)
[2019-01-16 06:46] LABS: Hematocrit (blood only) 37.8 % (37-47); Hemoglobin 13.1 g/dL (12.0-16.0); Mean Corpuscular Hemoglobin 31.3 pg (25-34); Mean Corpuscular Hgb Conc 34.7 g/dL (32-36); Mean Corpuscular Volume 90.2 fL (80-100); Mean Platelet Volume 9.9 fL (7.4-10.4); Platelet Count 163 K/uL (130-400); RDW Coefficient of Variation 13.6 % (11.5-14.5); RDW Standard Deviation 45.2 fL (36.4-46.3); Red Blood Count 4.19 M/uL (4.2-5.4); White Blood Count 8.62 K/uL (4.8-10.8)
[2019-01-16] MEDS: ALBUT/IPRATROP 3MG/0.5MG NEB 3 ML VIAL NEB SCH ×4 (07:10→20:02)
[2019-01-16 07:27] LABS: BUN Creatinine Ratio 31.2 (10-20); Calcium 9.7 mg/dl (8.5-10.1); Creatinine Clr Calc Pharmacy 68.1 ml/min; Est GFR (African American) 96.6; Est GFR (Non-African American) 83.4; Potassium 3.1 mmol/L (3.5-5.1)
[2019-01-16] MEDS ORDERED: POTASSIUM CHLORIDE 20 MEQ TABCR PO STA (08:05)
[2019-01-16] MEDS: AZITHROMYCIN 250 MG TAB PO SCH (08:35)
[2019-01-16] MEDS: LISINOPRIL 40 MG TAB PO SCH (08:36)
[2019-01-16] MEDS: hydroCHLOROthiazide 25 MG TAB PO SCH (08:37)
[2019-01-16] MEDS: SERTRALINE HCL 100 MG TABLET PO SCH (08:37)
[2019-01-16] MEDS: FLUTICASONE/SALMETEROL 250/50 (ADVAIR) 14 PUFF/1 INHALER INH SCH ×2 (08:38→21:05)
[2019-01-16] MEDS: TIOTROPIUM BROMIDE 5 PUFF/90 MCG INH INH SCH (08:38)
[2019-01-16] MEDS: ENOXAPARIN INJ 40 MG/0.4 ML SYR SQ SCH (08:41)
[2019-01-16] MEDS ORDERED: hydroCHLOROthiazide 25 MG TAB PO SCH (09:00)
--- NOTE | 2019-01-16 13:03 | Hospitalist Progress Note ---
Date of Service January 16, 2019 Assessment & Plan (1) COPD exacerbation: Secondary to viral infection No acute process on cxr, flu PCR negative Azithromycin, duonebs, titrate O2 as needed - patient wears chronic O2 at night NSS @ 100 ml/hr CTA - no evidence of PE or consolidation (2) Hypoxia: As above Pulse ox 87% on RA in ED, now saturating above 92% on RA (3) Anxiety: and depression Continue home sertraline (4) Hypertension: continue lisinopril, hold hctz for dehydration (5) Muscular aches: CK wnl Tylenol, morphine for pain control (6) Pulmonary nodule: On CT: There is a 6 cm pleural-based nodule in the right lower lobe. This is pathologically indeterminant and unchanged from 11/06/2018. Follow-up is recommended as per the Fleischner criteria. (7) DVT prophylaxis: SCDs, enoxaparin DNR Subjective Ms. Thomas continues to feel terrible. Productive cough, dyspneic despite sats above 92% on RA. No chest pain, no nausea or vomiting. Muscle aches have improved. ROS Constitutional: no chills, aches, sweats or fever Respiratory: see HPI Cardiac: no chest pain, palpitations, edema, orthopnea or lightheadedness GI: no abdominal pain, nausea, vomiting, diarrhea or constipation : no dysuria or hesitancy Extremities: no joint pain or weakness Skin: no rash All other systems reviewed and negative Physical Exam Physical Exam: General: no distress Eyes: normal inspection, PERLL Respiratory: chest non tender, course bases bilaterally, no respiratory distre ss, no accessory muscle use Cardiac: regular rate and rhythm, no rub or gallop, no murmur, no edema, no jvd GI/: active bowel sounds, no abd pain or tenderness, soft, non distended Extremities: normal range of motion, normal strength, non tender Neuro/Psych: alert and oriented x 3, normal mood and affect Skin: normal color, dry Results & Data Vital Signs (Past 12 Hours) Vital Signs Temp Pulse Pulse Resp BP Pulse Ox 01/16/19 11:04 87 18 94 01/16/19 11:00 36.6 C 80 20 152/73 H 91 01/16/19 07:29 75 01/16/19 07:12 80 18 93 01/16/19 07:00 36.6 C 83 16 144/88 H 94 01/16/19 03:45 36.9 C 76 20 152/83 H 91 PG Care Time/CCT Total # of Minutes Spent Total Time Spent with Patient: Total time spent is greater than 50% in coordination of care (as documented) at patient's floor/unit and/or counseling patient: (1) Hypertension Hypertension type: essential hypertension Qualified Code(s): I10 - Essential (primary) hypertension
[2019-01-16] MEDS ORDERED: OPTIRAY 320 125ml IV PRN (13:15)
--- NOTE | 2019-01-16 13:29 | CT Scan Report ---
CT ANGIOGRAM OF THE CHEST CLINICAL HISTORY: Cough and dyspnea. COMPARISON STUDY: Chest x-ray dated 01/15/2019. Chest CT scan dated 11/06/2018. TECHNIQUE: Following the IV administration of 92 cc of Optiray 320, CT angiogram of the chest was per formed from the upper abdomen to the thoracic inlet utilizing the pulmonary embolus protocol. Images are reviewed in the axial, sagittal, and coronal planes. 3-D MIPS images are created and assessed. IV contrast was administered without complication. A dose lowering technique was utilized adhering to the principles of ALARA. The examination is degraded by motion artifact. CT DOSE: 452.91 mGy.cm FINDINGS: Thyroid: Imaged portions of the thyroid gland are normal in size and attenuation. A 1.4 cm low-attenu ation nodule is seen in the left lobe. Thoracic aorta: There is atherosclerotic calcification of the thoracic aorta, which is normal in nisha april and demonstrates standard 3-vessel arch anatomy. No dissection is seen. Pulmonary vasculature: The pulmonary trunk is normal in caliber. There are no filling defects identif ied in main, lobar, or segmental pulmonary branches to suggest pulmonary embolus. Heart: The heart is normal in size and without pericardial effusion. There are coronary artery calcif ications. Lungs and pleural spaces: Evaluation of the lung parenchyma is degraded by motion artifact. Emphysema tous change is noted. Apical scarring is observed. There is no airspace consolidation or pleural effu april. Minimal secretions are noted in the trachea. There is mild diffuse peribronchial thickening. Fo ci of parenchymal scarring are present in both lungs, greatest in the left upper lobe and lingula. Th ere is a 6 mm pleural-based nodule in the right lower lobe seen on image #144. Mediastinum: There is no mediastinal lymphadenopathy. Amarilis: Clear. Axillae: There is no axillary lymphadenopathy. Upper abdomen: A small hiatal hernia is noted. Partially visualized upper abdominal viscera is otherw ise grossly unremarkable. Skeletal structures: The skeletal structures are osteopenic. No lytic or blastic bony lesions are see n. Soft tissues: Postoperative change is noted in the left breast. IMPRESSION: 1. There is no evidence of pulmonary embolus in the main, lobar, or segmental pulmonary arteries. 2. Emphysema. 3. There is no airspace consolidation or pleural effusion. 4. Mild diffuse peribronchial thickening suggests reactive air disease. Clinical correlation will be required. 5. There is a 6 cm pleural-based nodule in the right lower lobe. This is pathologically indeterminant and unchanged from 11/06/2018. Follow-up is recommended as per the Fleischner criteria. Please refer to below summary of Fleischner criteria recommendations for follow-up of incidental CT n odules (Yue Torrez, Guidelines for management of small pulmonary nodules detected on CT scans: A sta tement from the Fleischner Society, Radiology 237: [phone].) SOLID NODULES Solitary nodule size: <6 mm * low risk patients: no follow-up needed * high risk patients: optional CT at 12 months Solitary nodule size: 6-8 mm * low risk patients: follow-up at 6-12 months, then consider further follow-up at 18-24 months * high risk patients: initial follow-up CT at 6-12 months and then at 18-24 months if no change Solitary nodule size: >8 mm * either low or high risk patients - consider follow-up CT at 3 months, and/or CT-PET, and/or biopsy Multiple nodules size: <6 mm * low risk patients: no routine follow-up * high risk patients: optional CT at 12 months Multiple nodules size: 6-8 mm * low risk patients: follow-up at 3-6 months, then consider further follow-up at 18-24 months * high risk patients: follow-up at 3-6 months, then at 18-24 months if no change Multiple nodules size: >8 mm * low risk patients: follow-up at 3-6 months, then consider further follow-up at 18-24 months * high risk patients: follow-up at 3-6 months, then at 18-24 months if no change Note: newly detected indeterminate nodule in persons 35 years of age or older. * low risk patients: minimal or absent history of smoking and/or other known risk factors * high risk patients: history of smoking or of other known risk factors (e.g. first degree relative with lung cancer, or exposure to asbestos, radon, uranium) * if a nodule up to 8 mm is partly solid or is ground glass further follow-up is required after 24 m onths to exclude possible slow growing adenocarcinoma (RANDY) SUBSOLID NODULES Solitary pure ground-glass nodule * nodule size <6 mm - no CT follow-up required * nodule size >=6 mm - follow-up CT at 6-12 months, then every 2 years until 5 years Solitary part-solid nodule * nodule size <6 mm - no CT follow-up required * nodule size >=6 mm - follow-up CT at 3-6 months. If unchanged, and solid component remains <6 mm, then annual follow-up for 5 years Multiple subsolid nodules * nodule size <6 mm - follow-up CT at 3-6 months, consider further follow-up at 2 and 4 years if sta ble * nodule size >=6 mm - follow-up CT at 3-6 months, subsequent management based on the most suspiciou s nodule(s) Electronically signed by: Lane Hammer M.D. 01/16/2019 1:28 PM
[2019-01-16] MEDS ORDERED: methylPREDNISolone 125 MG/2 ML VIAL IV ONE (16:12)
[2019-01-16] MEDS ORDERED: methylPREDNISolone 60 MG in SYRINGE 0 ML IV ONE (16:45)
[2019-01-16] MEDS: MoRPHine SULFATE 2 MG/ML CARP IV PRN (18:32)
[2019-01-17 06:43] LABS: Hematocrit (blood only) 39.2 % (37-47); Hemoglobin 13.2 g/dL (12.0-16.0); Mean Corpuscular Hemoglobin 30.2 pg (25-34); Mean Corpuscular Hgb Conc 33.7 g/dL (32-36); Mean Corpuscular Volume 89.7 fL (80-100); Mean Platelet Volume 10.2 fL (7.4-10.4); Platelet Count 190 K/uL (130-400); RDW Coefficient of Variation 13.6 % (11.5-14.5); RDW Standard Deviation 44.8 fL (36.4-46.3); Red Blood Count 4.37 M/uL (4.2-5.4); White Blood Count 8.24 K/uL (4.8-10.8)
[2019-01-17] MEDS: ALBUT/IPRATROP 3MG/0.5MG NEB 3 ML VIAL NEB SCH ×4 (06:51→19:11)
[2019-01-17 07:23] LABS: BUN Creatinine Ratio 21.6 (10-20); Calcium 9.7 mg/dl (8.5-10.1); Creatinine Clr Calc Pharmacy 65.8 ml/min; Est GFR (Non-African American) 80.2; Potassium 3.8 mmol/L (3.5-5.1)
[2019-01-17] MEDS: SERTRALINE HCL 100 MG TABLET PO SCH (10:37)
[2019-01-17] MEDS: predniSONE 50 MG TAB PO SCH (10:37)
[2019-01-17] MEDS: LISINOPRIL 40 MG TAB PO SCH (10:38)
[2019-01-17] MEDS: AZITHROMYCIN 250 MG TAB PO SCH (10:38)
[2019-01-17] MEDS: hydroCHLOROthiazide 25 MG TAB PO SCH (10:39)
[2019-01-17] MEDS: ENOXAPARIN INJ 40 MG/0.4 ML SYR SQ SCH (10:40)
[2019-01-17] MEDS: TIOTROPIUM BROMIDE 5 PUFF/90 MCG INH INH SCH (10:40)
[2019-01-17] MEDS: FLUTICASONE/SALMETEROL 250/50 (ADVAIR) 14 PUFF/1 INHALER INH SCH ×2 (10:41→20:13)
--- NOTE | 2019-01-17 10:47 | Hospitalist Progress Note ---
Date of Service January 17, 2019 Assessment & Plan (1) COPD exacerbation: * Secondary to viral infection. Has diagnosis of Emphysema on most recent PFT * Pox 87% on RA in ED, currently 93% on RA * CXR without acute process on 01/15 * Chest CTA without evidence for PE, consolidation or pleural effusion. mild diffuse peribronchial thickening suggests reactive air disease. 6cm pleural- based nodule RLL- unchanged from 11/06. * Azithromycin initiated on 01/16 * Duonebs QIDR- may be contributing to tachycardia * Titrate O2 as needed - patient wears chronic O2 at night over the past month * Prednisone 50mg PO- will need tapered * D/C IVFs * Flutter Valve -- consider addition of mucinex to thin secretions * 3rd exacerbation in < 6 months (most recent October 2018)-- patient initiated on spiriva per most recent outpatient pulmonology note -- increased dose to 2 puffs/day (2) Anxiety and depression: * Severe-- stressors of living situation -- daughter supposed to move out, etoh abuse * Patient states she was recently titrated to 200mg daily of her sertraline (was getting 100mg this admission) -- * Will increase to 150mg per outpatient psych note * Per outpatient notes, patient was to start xanax 0.25mg prn -- when asked, patient denies taking any of this medication * Increase buspar to 7.5mg TID from her previous 5mg TID (3) Hypertension: * Elevated - BP currently 164/70 --? increased anxiety * Continue lisinopril 40mg, HCTZ 25mg * Given 5mg Amlodipine -- patient to have initiated * Will continue to monitor (4) Chronic back pain: * Patient with complaints of chronic low back pain, muscle aches * Chronic * S/P lumbar spine surgery [address] Bauer in [place] * CK wnl * Patient has been seen in pain clinic Mar 2017. Injections without relief. Evaluated by Dr. Baez/ PT[place]rop[place] [facility] [place] Trial of cymbalta as well as lyrica without benefit. * MRI November 2018 with post surgical changes/no spinal cord compression * Patient would like to be seen by pain clinic at [facility] moving forward (5) Pulmonary nodule: * On CT: There is a 6 cm pleural-based nodule in the right lower lobe. This is pathologically indeterminant and unchanged from 11/06/2018. * Follow-up is recommended as per the Fleischner criteria. * Patient follows locally with Zeenat Granados PA-C (6) Hypoxia: * As above * Pulse ox 87% on RA in ED, * O2 sat 93% on RA this morning (7) DVT prophylaxis: * SCDs, enoxaparin Supervising Physician Co-Signing Physician Notes Attending Attestation: Chart reviewed in detail, care plan d/w KATERIN Olmstead. I agree w/ the simmons components of her documentation except -- nodule that is pleural-based is 6mm in size (not 6cm in size). Patient with COPD exacerbation - finish z-pack; prednisone taper. Nebs, supportive care. Multiple COPD flares last few months - had been on advair but stopped due to lack of a sink to rinse her mouth after using such?? (per outpatient clinic notes) Was changed to spiriva. Would consider adding back advair or symbicort or other dual-based inhaler. Confirm access to sink. Anxiety - increase buspar. Lung nodule - f/u lung nodule clinic. Hussein Hirsch MD Subjective Patient evaluated this morning at bedside. The patient states her breathing is 50% of baseline. She states her sputum production has changed from more "brown/green" to "thick yellow". She denies current tobacco usage, but states she did have several of her daughter's cigarettes over the past week prior to coming in. She states her shortness of breath has improved, but she still expresses that she has periods of time where she feels like she is unable to catch her breath, but is unable to quantify. When asked about possible anxiety, the patient expressed increased anxiety with regards to her living situation and decline over the past two years with her daughter living with her, whom the patient states is an alcoholic. She states until her daughter moved in, she was generally in good health. She does state she has increased back pain, and denies relief following surgery 2-3 years ago in [place]. She states her pain had been controlled in the past with 2 tablets of oxycodone but she states she has not received any recently. She states she has been seen locally by pain management and received injections, but would like to see about follow up with pain management elsewhere. She states recent medication changes include increasing her zoloft to 200mg but denies any initiation of clonidine, xanax, or amlodipine. Review of Systems Constitutional: no fever and no chills Eyes: no diplopia and no eye pain Ear, Nose, Mouth, Throat: no ear pain and no dizziness Respiratory: + cough, + chest congestion and + dyspnea Cardiovascular: + dyspnea; no chest pain, no syncope and no edema Gastrointestinal: no abdominal pain, no nausea, no vomiting, no constipation and no diarrhea/loose stools Genitourinary: no dysuria and no urinary frequency Musculoskeletal: + back pain Integumentary: no rash and no lesions Neurologic: no falls and no syncope Psychiatric: + depression and + anxiety Allergy / Immunological: no urticaria Physical Exam Constitutional: WD/WN, vitals as above no acute distress Eyes: PERRL, conjunctivae normal, anicteric sclerae ENMT: external ear and nose normal, oropharynx normal Neck: trachea midline, no thyromegaly Respiratory: normal respiratory effort and able to speak in complete sentences; no respiratory distress and no labored breathing Auscultation: + diminished lung sounds, + rhonchi and + wheezes (end expiratory wheezing); no crackles prolonged inspiratory phase Cardiovascular: Rate/Rhythm: regular rate and + tachycardic Extremities: no edema Gastrointestinal (Abdomen): normal bowel sounds, soft, nontender, no hepatosplenomegaly Musculoskeletal: no cyanosis or clubbing, extremities motor strength 5/5 Skin: no rashes, warm and dry Neurologic: PERRL, EOMI, accommodation nl, no face palsy, no dysarthria Psychiatric: Affect: + anxious affect Mood: + depressed mood Results & Data Vital Signs (Past 12 Hours) Vital Signs Temp Pulse Pulse Resp BP Pulse Ox 01/17/19 07:54 70 01/17/19 06:51 81 20 93 01/17/19 04:33 36.7 C 87 18 167/88 H 91 01/16/19 23:15 81 01/16/19 22:55 36.7 C 87 18 122/70 93 Laboratory Results 01/17/19 01/17/19 Range/Units 06:26 06:26 WBC 8.24 (4.8-10.8) K/uL RBC 4.37 (4.2-5.4) M/uL Hgb 13.2 (12.0-16.0) g/dL Hct 39.2 (37-47) % MCV 89.7 (80-100) fL MCH 30.2 (25-34) pg MCHC 33.7 (32-36) g/dL RDW Std Deviation 44.8 (36.4-46.3) fL RDW Coeff of Hipolito 13.6 (11.5-14.5) % Plt Count 190 (130-400) K/uL MPV 10.2 (7.4-10.4) fL Sodium 140 (136-145) mmol/L Potassium 3.8 D (3.5-5.1) mmol/L Chloride 109 H (98-107) mmol/L Carbon Dioxide 24 (21-32) mmol/L Anion Gap 7.0 (3-11) BUN 16 (7-18) mg/dl Creatinine 0.72 (0.6-1.2) mg/dl Est Cr Clr Drug Dosing 65.8 ml/min Est GFR ( Amer) 93.0 Est GFR (Non-Af Amer) 80.2 BUN/Creatinine Ratio 21.6 H (10-20) Glucose 103 H (70-99) mg/dl Calcium 9.7 (8.5-10.1) mg/dl PG Care Time/CCT Total # of Minutes Spent Total Time Spent with Patient: Total time spent is greater than 50% in coordination of care (as documented) at patient's floor/unit and/or counseling patient: (1) Hypertension Hypertension type: essential hypertension Qualified Code(s): I10 - Essential (primary) hypertension
[2019-01-17] MEDS: MoRPHine SULFATE 2 MG/ML CARP IV PRN (10:59)
[2019-01-17] MEDS ORDERED: AMLODIPINE BESYLATE 5 MG TAB PO ONE (13:51)
[2019-01-18] MEDS: ALBUT/IPRATROP 3MG/0.5MG NEB 3 ML VIAL NEB SCH ×4 (06:55→18:54)
[2019-01-18 07:18] LABS: Hemoglobin 13.2 g/dL (12.0-16.0); Mean Corpuscular Hemoglobin 30.2 pg (25-34); Mean Corpuscular Hgb Conc 33.8 g/dL (32-36); Mean Corpuscular Volume 89.2 fL (80-100); Platelet Count 211 K/uL (130-400); RDW Coefficient of Variation 13.4 % (11.5-14.5); RDW Standard Deviation 44.3 fL (36.4-46.3); Red Blood Count 4.37 M/uL (4.2-5.4); White Blood Count 9.84 K/uL (4.8-10.8)
[2019-01-18 07:48] LABS: BUN Creatinine Ratio 22.2 (10-20); Calcium 9.7 mg/dl (8.5-10.1); Creatinine Clr Calc Pharmacy 69.3 ml/min; Est GFR (African American) 97.1; Est GFR (Non-African American) 83.8; Potassium 2.9 mmol/L (3.5-5.1)
[2019-01-18] MEDS: AZITHROMYCIN 250 MG TAB PO SCH (08:59)
[2019-01-18] MEDS: SERTRALINE HCL 100 MG TABLET PO SCH (08:59)
[2019-01-18] MEDS: predniSONE 50 MG TAB PO SCH (08:59)
[2019-01-18] MEDS: ENOXAPARIN INJ 40 MG/0.4 ML SYR SQ SCH (09:01)
[2019-01-18] MEDS: LISINOPRIL 40 MG TAB PO SCH (09:01)
[2019-01-18] MEDS: FLUTICASONE/SALMETEROL 250/50 (ADVAIR) 14 PUFF/1 INHALER INH SCH ×2 (09:02→20:05)
[2019-01-18] MEDS ORDERED: POTASSIUM CHLORIDE 20 MEQ TABCR PO STA (09:04)
[2019-01-18] MEDS: TIOTROPIUM BROMIDE 5 PUFF/90 MCG INH INH SCH (09:04)
--- NOTE | 2019-01-18 09:08 | Hospitalist Progress Note ---
Date of Service January 18, 2019 Assessment & Plan (1) COPD exacerbation: * Secondary to viral infection. Has diagnosis of Emphysema on most recent PFT * Pox 87% on RA in ED, currently 93% on RA * CXR without acute process on 01/15 * Chest CTA without evidence for PE, consolidation or pleural effusion. mild diffuse peribronchial thickening suggests reactive air disease. 6mm pleural- based nodule RLL- unchanged from 11/06. * Azithromycin initiated on 01/16 * Duonebs QIDR * Titrate O2 as needed - patient wears chronic O2 at night over the past month * Prednisone 50mg PO- will need tapered slowly, as patient still with dyspnea and wheezing * D/C IVFs * Flutter Valve -- consider addition of mucinex to thin secretions * 3rd exacerbation in < 6 months (most recent October 2018) -- patient initiated on spiriva per most recent outpatient pulmonology note -- increased dose to 2 puffs/day * Sputum Cx * If patient without much improvement in AM, will consider pulm consult (2) Anxiety and depression: * Severe-- stressors of living situation -- daughter supposed to move out, etoh abuse * Patient states she was recently titrated to 200mg daily of her sertraline (was getting 100mg on admission, outpatient psych with increase to 150mg) --> consider increase from 150mg to 200mg daily for better depression/anxiety control * Per outpatient notes, patient was also to start xanax 0.25mg prn -- when asked, patient denies taking any of this medication * Increase buspar to 7.5mg TID from her previous 5mg TID SCHEDULED * Per patient daughter request, heavy metal panel pending (3) Hypertension: * Elevated, but stable - BP currently 154/78 --multiple factors, increased anxiety * Continue lisinopril 40mg, HCTZ 25mg * Given 5mg Amlodipine -- patient to have initiated as outpatient, but she states she never started-- consider addition during admission if anxiety not improved and BP remains elevated tomorrow * Will continue to monitor (4) Chronic back pain: * Chronic- Patient with complaints of chronic low back pain, muscle aches. CK wnl. * S/P lumbar spine surgery [address] Bauer in [place] * Patient has been seen in pain clinic Mar 2017. Injections without relief. Evaluated by Dr. Baez/ PT/Chiropractor from [facility] [place]. Trial of cymbalta as well as lyrica without benefit. * MRI November 2018 with post surgical changes/no spinal cord compression * Patient would like to be seen by pain clinic at [facility] moving forward * Patient utilizing morphine 2mg IV-- 2 doses total in last 24 hours (5) Pulmonary nodule: * On CT: There is a 6 mm pleural-based nodule in the right lower lobe. This is pathologically indeterminant and unchanged from 11/06/2018. * Follow-up is recommended as per the Fleischner criteria. * Patient follows locally with Zeenat Granados PA-C -- follow-up with lung nodule clinic (6) Hypoxia: * As above * Pulse ox 87% on RA in ED, * O2 sat 93% on RA this morning (7) Hypokalemia: (8) DVT prophylaxis: * SCDs, enoxaparin Supervising Physician Co-Signing Physician Notes Attending Attestation: Chart reviewed in detail, care plan d/w KATERIN Olmstead. I agree w/ the simmons components of her documentation. Patient with ongoing COPD exacerbation - finish z-pack; cont prednisone taper, nebs, supportive care. Send sputum cx - r/o gram negative pathogen, etc. Agree w/ pulmonary consult if symptoms do not improve next 1-2 days. Anxiety - severe - cont buspar and SSRI. Lung nodule - f/u lung nodule clinic. Hypokalemia - replace, repeat BMP am. Hussein Hirsch MD Subjective Patient evaluated this morning. She states her breathing is 60% of baseline and does not feel as fatigued/weak. She confirms sputum production isn't necessarily less, as she states she can typically fill 4 medication cups full of sputum on a daily basis. She states the quality continues to be more thick, white-yellow compared to green/brown on admission. Coughing spells cause her to feel nauseated, but she denies emesis. The patient states she did have an anxiety attack that felt like a tight pressure/squeezing in her chest at 3am and was unable to catch her breath. She believes she received ativan and was put on 2L NC. She states she felt better around 5am. She denies fevers, chills, vomiting, constipation, dysuria. Review of Systems Constitutional: no fever and no chills Eyes: no diplopia and no eye pain Ear, Nose, Mouth, Throat: no ear pain and no tinnitus Respiratory: + cough, + chest congestion and + dyspnea Cardiovascular: + dyspnea; no chest pain, no syncope and no edema Gastrointestinal: + nausea; no vomiting, no constipation and no diarrhea/loose stools Genitourinary: no dysuria and no urinary frequency Musculoskeletal: + back pain Integumentary: no rash and no lesions Neurologic: no headache(s) and no confusion Psychiatric: + depression and + anxiety Endocrine: + fatigue Physical Exam Constitutional: WD/WN, vitals as above no acute distress Eyes: PERRL, conjunctivae normal, anicteric sclerae ENMT: external ear and nose normal, oropharynx normal Neck: trachea midline, no thyromegaly Respiratory: normal respiratory effort and able to speak in complete sentences; no respiratory distress and no labored breathing Auscultation: + diminished lung sounds, + rhonchi and + wheezes (end expiratory wheezing, RLL>LLL); no crackles Cardiovascular: RRR, no murmur, no edema Gastrointestinal (Abdomen): normal bowel sounds, soft, nontender, no hepatosplenomegaly Musculoskeletal: no cyanosis or clubbing, extremities motor strength 5/5 Skin: no rashes, warm and dry Neurologic: PERRL, EOMI, accommodation nl, no face palsy, no dysarthria Psychiatric: Affect: + anxious affect Mood: + depressed mood Results & Data Vital Signs (Past 12 Hours) Vital Signs Temp Pulse Pulse Resp BP Pulse Ox 01/18/19 07:22 37.6 C H 82 16 154/78 H 93 01/18/19 06:55 74 18 96 01/18/19 03:38 36.9 C 69 18 169/94 H 95 01/17/19 23:40 81 01/17/19 23:34 36.5 C 85 20 162/89 H 94 Laboratory Results 01/18/19 01/18/19 Range/Units 06:51 06:51 WBC 9.84 (4.8-10.8) K/uL RBC 4.37 (4.2-5.4) M/uL Hgb 13.2 (12.0-16.0) g/dL Hct 39.0 (37-47) % MCV 89.2 (80-100) fL MCH 30.2 (25-34) pg MCHC 33.8 (32-36) g/dL RDW Std Deviation 44.3 (36.4-46.3) fL RDW Coeff of Hipolito 13.4 (11.5-14.5) % Plt Count 211 (130-400) K/uL MPV 10.0 (7.4-10.4) fL Sodium 140 (136-145) mmol/L Potassium 2.9 L D (3.5-5.1) mmol/L Chloride 108 H (98-107) mmol/L Carbon Dioxide 26 (21-32) mmol/L Anion Gap 6.0 (3-11) BUN 15 (7-18) mg/dl Creatinine 0.68 (0.6-1.2) mg/dl Est Cr Clr Drug Dosing 69.3 ml/min Est GFR ( Amer) 97.1 Est GFR (Non-Af Amer) 83.8 BUN/Creatinine Ratio 22.2 H (10-20) Glucose 86 (70-99) mg/dl Calcium 9.7 (8.5-10.1) mg/dl PG Care Time/CCT Total # of Minutes Spent Total Time Spent with Patient: Total time spent is greater than 50% in coordination of care (as documented) at patient's floor/unit and/or counseling patient: (1) Hypertension Hypertension type: essential hypertension Qualified Code(s): I10 - Essential (primary) hypertension
[2019-01-18] MEDS: MoRPHine SULFATE 2 MG/ML CARP IV PRN ×2 (09:13→23:21)
[2019-01-18] MEDS: POTASSIUM CHLORIDE / WTR 10 MEQ/100 ML PLCT IV SCH ×2 (11:06→12:49)
[2019-01-18] MEDS: hydroCHLOROthiazide 25 MG TAB PO SCH (11:07)
[2019-01-18] MEDS ORDERED: COUGH DROP (SUGAR FREE) LOZ 24 LOZ/1 BOX BUCCAL PRN (23:16)
[2019-01-18] MEDS ORDERED: COUGH DROP (SUGAR FREE) LOZ 24 LOZ/1 BOX BUCCAL ONE (23:20)
[2019-01-19 06:35] LABS: Hematocrit (blood only) 40.3 % (37-47); Hemoglobin 13.7 g/dL (12.0-16.0); Mean Corpuscular Hemoglobin 30.5 pg (25-34); Mean Corpuscular Volume 89.8 fL (80-100); Mean Platelet Volume 9.9 fL (7.4-10.4); Platelet Count 227 K/uL (130-400); RDW Coefficient of Variation 13.5 % (11.5-14.5); RDW Standard Deviation 44.9 fL (36.4-46.3); Red Blood Count 4.49 M/uL (4.2-5.4); White Blood Count 9.87 K/uL (4.8-10.8)
[2019-01-19] MEDS: ALBUT/IPRATROP 3MG/0.5MG NEB 3 ML VIAL NEB SCH ×4 (07:02→19:01)
[2019-01-19 07:21] LABS: Albumin Globulin Ratio 0.8 (0.9-2); BUN Creatinine Ratio 21.5 (10-20); Bilirubin,Total 0.6 mg/dl (0.2-1); Calcium 9.9 mg/dl (8.5-10.1); Creatinine Clr Calc Pharmacy 59.6 ml/min; Est GFR (African American) 81.8; Est GFR (Non-African American) 70.6; Globulin 3.7 gm/dl (2.5-4.0); Potassium 3.5 mmol/L (3.5-5.1); Total Protein 6.7 gm/dl (6.4-8.2)
[2019-01-19] MEDS: predniSONE 50 MG TAB PO SCH (10:57)
[2019-01-19] MEDS: SERTRALINE HCL 100 MG TABLET PO SCH (10:57)
[2019-01-19] MEDS: FLUTICASONE/SALMETEROL 250/50 (ADVAIR) 14 PUFF/1 INHALER INH SCH ×2 (10:59→21:09)
[2019-01-19] MEDS: hydroCHLOROthiazide 25 MG TAB PO SCH (10:59)
[2019-01-19] MEDS: LISINOPRIL 40 MG TAB PO SCH (10:59)
[2019-01-19] MEDS: AZITHROMYCIN 250 MG TAB PO SCH (10:59)
[2019-01-19] MEDS: TIOTROPIUM BROMIDE 5 PUFF/90 MCG INH INH SCH (11:00)
[2019-01-19] MEDS: ENOXAPARIN INJ 40 MG/0.4 ML SYR SQ SCH (11:00)
--- NOTE | 2019-01-19 15:57 | Hospitalist Progress Note ---
Date of Service January 19, 2019 Assessment & Plan (1) COPD exacerbation: * Unchanged * Secondary to viral infection. Has diagnosis of Emphysema on most recent PFT * 3rd exacerbation in < 6 months (most recent October 2018) -- patient initiated on spiriva per most recent outpatient pulmonology note -- increased dose to 2 puffs/day * Pox 87% on RA in ED, currently 91% on RA -- titrate O2 as needed to maintain sat > 90% * CXR without acute process on 01/15 * Chest CTA without evidence for PE, consolidation or pleural effusion. mild diffuse peribronchial thickening suggests reactive air disease. 6mm pleural- based nodule RLL- unchanged from 11/06. * Duonebs QIDR -- change to while awake -- added mucomyst to nebulizer treatment * Prednisone 50mg PO- will need tapered slowly, as patient still with dyspnea and wheezing * D/C Azithromycin * Sputum Cx -- prelim with mod gram neg bacilli -- will switch antibiotic to LEVAQUIN (will monitor for reaction) * Gaufenesin * Chest physiotherapy BID * Repeat CXR in AM * Flutter Valve * Consult Pulmonology in AM if patient without improvement (2) Anxiety and depression: * Severe-- stressors of living situation -- daughter supposed to move out, etoh abuse * Patient states she was recently titrated to 200mg daily of her sertraline (was getting 100mg on admission, outpatient psych with increase to 150mg) --> changed to 150mg daily yesterday --> consider increase from 150mg to 200mg daily for better depression/anxiety control * Per outpatient notes, patient was also to start xanax 0.25mg prn -- when asked, patient denies taking any of this medication * Increased buspar to 7.5mg TID from her previous 5mg without much improvement * Per patient daughter request, heavy metal panel pending * Psych consult -- appreciate input (3) Hypertension: * Elevated, but stable - BP currently 148/70 --multiple factors, increased anxiety * Continue lisinopril 40mg, HCTZ 25mg * Start amlodipine 5mg daily -- patient was to have initiated as outpatient, but she states she never started-- consider addition during admission if anxiety not improved and BP remains elevated tomorrow * Will continue to monitor (4) Chronic back pain: * Chronic- Patient with complaints of chronic low back pain, muscle aches. CK wnl. * S/P lumbar spine surgery [address] Bauer in [place] * Patient has been seen in pain clinic Mar 2017. Injections without relief. Evaluated by Dr. Baez/ [place] [facility] [place] Trial of cymbalta as well as lyrica without benefit. * MRI November 2018 with post surgical changes/no spinal cord compression * Patient would like to be seen by pain clinic at [facility] moving forward * Morphine prn (5) Pulmonary nodule: * On CT: There is a 6 mm pleural-based nodule in the right lower lobe. This is pathologically indeterminant and unchanged from 11/06/2018. * Follow-up is recommended as per the Fleischner criteria. * Patient follows locally with Zeenat Granados PA-C -- follow-up with lung nodule clinic (6) Hypoxia: * As above * Pulse ox 87% on RA in ED, * O2 sat 91% on RA currently-- will continue to follow --> will get 2-step prior to d/c if continues to remain low (7) Hypokalemia: (8) DVT prophylaxis: * SCDs, enoxaparin Dispo: re-evaluate tomorrow, possible pulmonary consult, anticipate 2-3 more days Supervising Physician Co-Signing Physician Notes Attending Attestation: Chart reviewed in detail, care plan d/w KATERIN Olmstead. I agree w/ the simmons components of her documentation. Patient with ongoing COPD exacerbation - patient continues to state she doesn't feel much better. Agree w/ change of abx from zpack to levaquin for gram negative coverage. Follow sputum cx. Cont steroids. Needs more aggressive pulmonary toilet - add mucinex, consider mucomyst, add chest PT twice daily. Pulmonary consultation for additional recs? Anxiety - severe - cont buspar and SSRI. Would ask psychiatry for any further recommendations as this continues to be problematic (and makes her breathing worse). Lung nodule - f/u lung nodule clinic. Labs/vitals acceptable. Hussein Hirsch MD Subjective Patient evaluated at bedside this afternoon. She states she did not have a good night. She was unable to sleep much. She states the bathroom has been occupied all night, there was blood on an IV pole, urine collection next to the sink in the bathroom that have caused her increased distress. She states she spoke to her daughter who is living in her condo and had been unable to get ahold of them for PT for her daughter which has also worsened her anxiety. She states her blood pressure has been running high and that is unlike her usual. She states she is concerned about not feeling any better than yesterday and states her sputum is thick yellow today and occasionally has green tinge to it. She states the quantity is unchanged. She does have shortness of breath with inspiration, which is unchanged. When asked about allergy to cipro she states she had redness coming up her arm and antibiotics were changed. She denies any anaphylaxis. Review of Systems Constitutional: + body aches and + weakness Eyes: no diplopia and no eye pain Ear, Nose, Mouth, Throat: no ear pain and no tinnitus Respiratory: + cough, + chest congestion, + change in sputum (yellow/green) and + dyspnea Cardiovascular: + dyspnea; no chest pain, no syncope and no edema Gastrointestinal: + nausea; no vomiting, no constipation and no diarrhea/loose stools Genitourinary: no dysuria and no urinary frequency Musculoskeletal: + back pain Integumentary: no acne and no rash Neurologic: + headache(s) Psychiatric: + depression and + anxiety Endocrine: + fatigue Physical Exam Constitutional: WD/WN, vitals as above no acute distress Eyes: PERRL, conjunctivae normal, anicteric sclerae ENMT: external ear and nose normal, oropharynx normal Neck: trachea midline, no thyromegaly Respiratory: normal respiratory effort and able to speak in complete sentences; no respiratory distress and no labored breathing Auscultation: + diminished lung sounds (throughout), + rhonchi and + wheezes (end expiratory wheezing, LLL>RLL); no crackles Cardiovascular: RRR, no murmur, no edema Rate/Rhythm: regular rate and + tachycardic Extremities: no edema Gastrointestinal (Abdomen): normal bowel sounds, soft, nontender, no hepatosplenomegaly Musculoskeletal: no cyanosis or clubbing, extremities motor strength 5/5 Skin: no rashes, warm and dry Neurologic: PERRL, EOMI, accommodation nl, no face palsy, no dysarthria Psychiatric: Affect: + anxious affect Mood: + depressed mood Results & Data Vital Signs (Past 12 Hours) Vital Signs Temp Pulse Resp BP Pulse Ox 01/19/19 15:47 37.0 C 98 H 18 148/70 H 91 01/19/19 15:22 85 18 93 01/19/19 11:28 36.8 C 83 24 150/90 H 91 01/19/19 11:06 90 18 91 01/19/19 07:40 36.8 C 77 28 H 132/84 91 PG Care Time/CCT Total # of Minutes Spent Total Time Spent with Patient: Total time spent is greater than 50% in coordination of care (as documented) at patient's floor/unit and/or counseling patient: (1) Hypertension Hypertension type: essential hypertension Qualified Code(s): I10 - Essential (primary) hypertension
[2019-01-19] MEDS: MoRPHine SULFATE 2 MG/ML CARP IV PRN (16:08)
[2019-01-19] MEDS ORDERED: DiphenhydrAMINE HCL 50 MG/ML VIAL IV PRN (16:44)
[2019-01-19] MEDS ORDERED: ACETYLCYSTEINE 10% INHAL SOLN 4 ML **DISPENSED BY RESP. INH SCH (17:00)
[2019-01-19] MEDS: ACETYLCYSTEINE 10% INHAL SOLN 4 ML **DISPENSED BY RESP. INH SCH (19:02)
[2019-01-19] MEDS: guaiFENesin 600 MG TABCR PO SCH (21:09)
[2019-01-20] MEDS: ALBUT/IPRATROP 3MG/0.5MG NEB 3 ML VIAL NEB SCH ×4 (06:49→19:33)
[2019-01-20] MEDS: ACETYLCYSTEINE 10% INHAL SOLN 4 ML **DISPENSED BY RESP. INH SCH ×4 (06:49→19:35)
[2019-01-20] MEDS: FLUTICASONE/SALMETEROL 250/50 (ADVAIR) 14 PUFF/1 INHALER INH SCH ×2 (08:39→20:55)
[2019-01-20] MEDS: SERTRALINE HCL 100 MG TABLET PO SCH (08:40)
[2019-01-20] MEDS: LISINOPRIL 40 MG TAB PO SCH (08:41)
[2019-01-20] MEDS: AMLODIPINE BESYLATE 5 MG TAB PO SCH (08:41)
[2019-01-20] MEDS: predniSONE 50 MG TAB PO SCH (08:41)
[2019-01-20] MEDS: guaiFENesin 600 MG TABCR PO SCH ×2 (08:41→20:56)
[2019-01-20] MEDS: hydroCHLOROthiazide 25 MG TAB PO SCH (08:41)
[2019-01-20] MEDS: ENOXAPARIN INJ 40 MG/0.4 ML SYR SQ SCH (08:42)
[2019-01-20] MEDS: TIOTROPIUM BROMIDE 5 PUFF/90 MCG INH INH SCH (08:43)
--- NOTE | 2019-01-20 08:49 | XRay Report ---
XR chest 1V portable CLINICAL HISTORY: cough, sob COMPARISON STUDY: 01/15/2019 FINDINGS: Slight parenchymal and peribronchial prominence throughout both hemithoraces. No evidence f or congestive heart failure. No focal infiltrate. IMPRESSION: Slight peribronchial and parenchymal prominence suggesting nonspecific bronchitis. No fo tj infiltrate. The above report was generated using voice recognition software. It may contain grammatical, syntax or spelling errors. Electronically signed by: Stefan Hernandez M.D. 01/20/2019 8:48 AM
[2019-01-20 08:54] LABS: Hematocrit (blood only) 39.6 % (37-47); Hemoglobin 13.7 g/dL (12.0-16.0); Mean Corpuscular Hemoglobin 30.6 pg (25-34); Mean Corpuscular Hgb Conc 34.6 g/dL (32-36); Mean Corpuscular Volume 88.4 fL (80-100); Mean Platelet Volume 9.4 fL (7.4-10.4); Platelet Count 261 K/uL (130-400); RDW Coefficient of Variation 13.3 % (11.5-14.5); RDW Standard Deviation 43.2 fL (36.4-46.3); Red Blood Count 4.48 M/uL (4.2-5.4); White Blood Count 12.37 K/uL (4.8-10.8)
[2019-01-20 09:26] LABS: BUN Creatinine Ratio 26.6 (10-20); Calcium 9.9 mg/dl (8.5-10.1); Creatinine Clr Calc Pharmacy 60.4 ml/min; Est GFR (African American) 83.1; Est GFR (Non-African American) 71.7; Potassium 2.9 mmol/L (3.5-5.1)
--- NOTE | 2019-01-20 09:28 | Hospitalist Progress Note ---
Date of Service January 20, 2019 Assessment & Plan (1) COPD exacerbation: * Unchanged * Secondary to viral infection. Has diagnosis of Emphysema on most recent PFT * 3rd exacerbation in < 6 months (most recent October 2018) -- patient initiated on spiriva per most recent outpatient pulmonology note -- increased dose to 2 puffs/day * Pox 87% on RA in ED, currently 96% on RA -- titrate O2 as needed to maintain sat > 90% * CXR without acute process on 01/15 * Chest CTA without evidence for PE, consolidation or pleural effusion. mild diffuse peribronchial thickening suggests reactive air disease. 6mm pleural- based nodule RLL- unchanged from 11/06. * Duonebs QIDR -- change to while awake -- added mucomyst to nebulizer treatment * Prednisone decreased to 40mg today-- will taper * Sputum Cx -- prelim with mod gram neg bacilli -- Switched to LEVAQUIN 01/19 * Guaifenesin * Chest physiotherapy BID * CXR suggestive of nonspecific bronchitis. No focal infiltrate * Flutter Valve * Incentive spirometer Q1WA * Discussion with pulmonary regarding management- agree with current plan- official consult in AM if no improvement (2) Anxiety and depression: * Severe-- stressors of living situation -- daughter supposed to move out, etoh abuse * Patient states she was recently titrated to 200mg daily of her sertraline (was getting 100mg on admission, outpatient psych with increase to 150mg) --> changed to 150mg daily 01/18 * Per outpatient notes, patient was also to start xanax 0.25mg prn -- when asked, patient denies taking any of this medication * Increased buspar to 7.5mg TID from her previous 5mg without much improvement * Per patient daughter request, heavy metal panel pending * Psych consult -- appreciate input -- rec to continune current reg (3) Hypertension: * Stable - BP currently 136/76 --multiple factors, increased anxiety * Continue lisinopril 40mg, HCTZ 25mg * Started amlodipine 5mg daily -- patient was to have initiated as outpatient, but she states she never started -- will continue as BP better controlled today * Will continue to monitor (4) Chronic back pain: * Chronic- Patient with complaints of chronic low back pain, muscle aches. CK wnl. * S/P lumbar spine surgery [address] Bauer in [place] * Patient has been seen in pain clinic Mar 2017. Injections without relief. Evaluated by Dr. Baez/ PT/Chiropractor from [facility]. Trial of cymbalta as well as lyrica without benefit. * MRI November 2018 with post surgical changes/no spinal cord compression * Patient would like to be seen by pain clinic at [facility] moving forward * Morphine prn (5) Pulmonary nodule: * On CT: There is a 6 mm pleural-based nodule in the right lower lobe. This is pathologically indeterminant and unchanged from 11/06/2018. * Follow-up is recommended as per the Fleischner criteria. * Patient follows locally with Zeenat Granados PA-C -- follow-up with lung nodule clinic (6) Hypoxia: * As above * Pulse ox 87% on RA in ED, * O2 sat 96% on RA currently-- will continue to follow (7) Hypokalemia: * Potassium low, 2.9 today. Had been low despite repletion * 20MEQ KCL BID * Repeat level in AM * Will also obtain jose l, renin level in AM --? primary jose l (8) DVT prophylaxis: * SCDs, enoxaparin Supervising Physician Co-Signing Physician Notes Attending Attestation: Chart reviewed in detail, care plan d/w KATERIN Ol[place]. I agree w/ the simmons components of her documentation except -- in A/P, under COPD exacerbation, this flare is not due to viral process but yet to be identified gram negative lance as such is growing on sputum culture. Agree with changing antibiotics to levaquin to cover the gram negative lance growing on sputum cx. Cont prednisone, nebs, inhalers, pulmonary toilet as previous. Anxiety - severe - cont buspar and SSRI. Appreciate psych consultation. Lung nodule - f/u lung nodule clinic post-d/c. Labs/vitals cont to remain acceptable. Complex social situation which is contributing to anxiety, dyspnea, and disposition. Hussein Hirsch MD Subjective Evaluated at bedside. Patient states she is "not doing so well". She states she feels worn out, and has had a frontal headache, which is unusual for her. No photophobia or visual changes, dizziness, syncope. She states she has less productive cough, but still remains yellow in color. She states her anxiety is worse with her daughter and she had considered calling the police but states it would be her daughter's third offense and she would have to go to [facility] for 90 days; she states her daughter can not be incarcerated in her current condition. She denies chest pain or nausea today, and states she becomes short of breath with exertion. Review of Systems Constitutional: + body aches and + weakness Respiratory: + cough, + chest congestion, + change in sputum (yellow/green) and + dyspnea Cardiovascular: + dyspnea; no chest pain, no syncope and no edema Gastrointestinal: + nausea; no vomiting, no constipation and no diarrhea/loose stools Musculoskeletal: + back pain Neurologic: + headache(s) Psychiatric: + depression and + anxiety Endocrine: + fatigue Physical Exam Constitutional: WD/WN, vitals as above no acute distress Eyes: PERRL, conjunctivae normal, anicteric sclerae ENMT: external ear and nose normal, oropharynx normal Neck: trachea midline, no thyromegaly Respiratory: normal respiratory effort and able to speak in complete sentences; no respiratory distress and no labored breathing Auscultation: + diminished lung sounds (throughout) and + rhonchi; no crackles and no wheezes Cardiovascular: RRR, no murmur, no edema Gastrointestinal (Abdomen): normal bowel sounds, soft, nontender, no hepatosplenomegaly Musculoskeletal: no cyanosis or clubbing, extremities motor strength 5/5 Skin: no rashes, warm and dry Neurologic: PERRL, EOMI, accommodation nl, no face palsy, no dysarthria Psychiatric: Affect: + anxious affect Mood: + depressed mood Results & Data Vital Signs (Past 12 Hours) Vital Signs Temp Pulse Pulse Resp BP Pulse Ox 01/20/19 08:12 78 01/20/19 07:16 36.7 C 93 H 18 168/73 H 91 01/20/19 06:52 74 18 90 01/20/19 04:48 37 C 86 16 146/64 H 90 01/20/19 01:05 37 C 79 18 153/52 H 95 01/20/19 00:00 89 PG Care Time/CCT Total # of Minutes Spent Total Time Spent with Patient: Total time spent is greater than 50% in coordination of care (as documented) at patient's floor/unit and/or counseling patient: (1) Hypertension Hypertension type: essential hypertension Qualified Code(s): I10 - Essential (primary) hypertension
--- NOTE | 2019-01-20 09:58 | Psychiatric Consultation ---
Date of Consultation January 20, 2019 Impression / Recommendations Impression 78-year-old female admitted medically on 01/15/2019 due to reports of shortness of breath, productive cough, and muscle aches. Patient was admitted medically for COPD exacerbation, believed to be due to a viral infection. Psychiatric consultation was requested to evaluate patient for anxiety and depression. Patient was previously seen on our consult service on 11/08/18 for similar concerns. Patient is an outpatient at [facility], and records were requested after obtaining patient's permission. Outpatient medication list is not consistent with [facility] records and has been updated accordingly. Pt is prescribed 200mg of sertraline daily and was also prescribed 5mg of buspirone BID. Primary team titrated buspirone to 7.5mg TID, which seems appropriate to target symptoms of anxiety - watch for potential signs and symptoms of serotonin syndrome given adjustments of multiple serotonergic medications. Would suggest avoiding alprazolam for treatment of anxiety, as patient has historically report ed it is ineffective and it can contribute to respiratory depression. It is likely that patient's symptoms are highly related to her current living situation, and having her daughter in the home - discussed with patient who agrees. We reviewed the benefits, and limitations, of psychiatric medications - explaining that medications can help her to cope with stressors, but that therapeutic intervention may allow patient to learn coping strategies and ways to better handle her living situation. Pt declines multiple offers for therapy referral. Pt denies SI/HI, SIB, A/V hallucinations and other symptoms of acute psychosis. No indication for inpatient psychiatric treatment. Pt feels her current medication regimen has demonstrated some efficacy, since sertraline was titrated on an outpatient basis. Reviewed expectation for gradual improvement over several weeks. Pt declines further adjustments to her medication regimen and is agreeable to continuing to follow with [facility] for further psychiatric needs. She denies other needs from our service at this time. Please reach out with any additional questions or concerns regarding the patient's case. Dr. Jocelin Hassan was directly involved in review and discussion of the patient's case and participated in medical decision making regarding treatment recommendations. Risk Factors Assessment Do You Have Access To A Gun?: No Psych History Identifying Data 78-year-old female admitted medically on 01/15/19 after presenting to the ED for SOB, productive cough, and muscle aches. Psychiatric consultation is requested to evaluate patient for depression and anxiety, in the context of situational stressors. Information is gathered from hospital documentation and the patient herself - the combination of which is considered to be reliable. Chief Complaint "I don't see any future. I'm getting worse, not better." History of Present Illness Fernanda Thomas is a 78-year-old female admitted medically on 01/15/2019 after presenting to the ED with shortness of breath, productive cough, and muscle aches. Pt was admitted for treatment of COPD exacerbation, believed to be related to a viral infection. Psychiatric consultation was requested to evaluate patient for depression and anxiety. Pt was seen on our consult service on 11/08/18 for similar concerns. She is reportedly seeing a psychiatric prescriber at [facility] for medication management, and is taking sertraline and buspirone. Hospital documentation reviewed; patient's case was reviewed and discussed with supervising psychiatrist and psychiatric nurse liaison. Pt was cooperative with assessment, though admits she is not feeling well presently. When asked how she is feeling, patient forms her hand into the shape of a gun and puts it to her head - stating she is frustrated that she is getting worse and not better. When asked about the feelings behind the gesture, patient quickly states that she is not experiencing suicidal ideation, but rather frustration related to her medical concerns. She states, "I've never thought like that, I would never do anything to hurt myself." Pt pulls out her phone and shows this provider several pictures of her children and grandchildren, stating "I have lots of reason to keep going." Pt states that her worsening mood is believed to be a result of physical symptoms, as she denies significant symptoms of anxiety or depression prior to her admission. Pt states, "things have actually been going really well since they increased my sertraline to 200." She states that her last panic attacks was about 2 months ago, while in the hospital. When asked about any social stressors, patient states "that stupid daughter of mine is my problem." She states that she has difficulty coping with her daugther's reported alcohol abuse, and it has been consistently putting stress on her. Pt states that she does find time to focus on her individual needs, admitting that she volunteers regularly at [employer] and likes to read and get coffee with friends. Pt denies feeling any changes to her medication regimen are necessary at this time. When asked about her willingness for a therapy referral, the patient states "it just echoes." She states that her experience with therapy has not been positive and that she does not believe it would be helpful. We discussed realistic expectations of what medications can help with, along with their short-comings - explaining that some situational stressors may be best resolved with therapy. Pt continued to decline recommendation. Pt denies SI, HI, SIB, A/V hallucinations, paranoia, erin/hypomania, other symptoms more suggestive of a bipolar presentation, OCD, PTSD, eating disorder, and other specific psychiatric symptoms. She denies other needs from our service at this time, believing once she is feeling better physically, that she will be suitable to return home. Past Psychiatric History Current Psychiatric Diagnosis: Depression and anxiety Outpatient Services: Psychiatric prescriber - [facility] Declines therapy Previous Psych Admissions: None, seen on consult service to evaluate depression and anxiety on 11/08/18 Do You Have Access To A Gun?: No History of Previous Suicide Attempt: No Allergies Allergy/AdvReac Type Severity Reaction Status Date / Time Cipro AdvReac Intermediate REDNESS Verified 09/24/17 08:08 ALONG VEIN ciprofloxacin AdvReac Intermediate REDNESS Verified 12/07/18 09:34 ALONG VEIN atorvastatin AdvReac Unknown muscle pain Verified 12/07/18 09:34 simvastatin AdvReac Unknown muscle pain Verified 12/07/18 09:34 Home Medications Home Medications Medication Instructions Recorded Confirmed Type hydrochlorothiazide 25 mg PO QAM 11/06/18 01/15/19 History lisinopril 40 mg PO QAM 11/06/18 01/15/19 History fluticasone propion-salmeterol 1 puff INHALATION BID #1 inhaler 11/09/18 01/15/19 Rx [Advair Diskus] albuterol sulfate HFA 90 2 puffs INH Q4H PRN #18 gm 12/07/18 01/15/19 Rx mcg/actuation aerosol inhaler tiotropium bromide 2.5 2 puffs INH DAILY #4 gm 12/07/18 01/15/19 Rx mcg/actuation mist for inhalation Oxygen Home #2 liter 12/22/18 01/15/19 Rx buspirone 5 mg PO BID 01/20/19 01/20/19 History sertraline 200 mg PO DAILY 01/20/19 01/20/19 History Family History Daughter with substance abuse concerns; otherwise family history of psychiatric diagnoses is unknown Substance Abuse History Denies use of illicit substances Personal History Living Arrangements: Home (with daughter) Living Arrangements Comments: per 11/08/18 consultation: "Pt had been living with her daughter, whom she kicked out of her home 1 - 1-1/2 years ago due to her ongoing substance abuse. Daughter has moved back, due to medical complications. 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) Marital Status: Number Of Children: 5 children, strained relations with the other 4 due to daughter's behaviors Beliefs That Will Affect Care: None History of Legal Problems: Denies Psychological Trauma History Comment: Denies Patient History Medical History Gait disturbance (Chronic) Hearing decreased (Chronic) History of malignant neoplasm of breast (Chronic) History of nicotine dependence (Chronic) Intermittent claudication (Chronic) 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) Low back pain (Chronic) Osteoporosis (Chronic) Prediabetes (Chronic) Right knee pain (Chronic) Sleep disturbance (Chronic) Spinal stenosis (Chronic) Statin intolerance (Chronic) Stenosis of iliac artery (Chronic) Vitamin D deficiency disease (Chronic) Breast cancer (Chronic 12/26/13) "Abnormal left breast mammogram Status post ultrasound-guided biopsies 10/06/2013 that revealed benign status post left breast excisional biopsy 12/02/2013 revealing infiltrating ductal carcinoma estrogen receptor positive, progesterone receptor positive, 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, stage pT2 Status post reexcision and sentinel lymph node biopsy 12/26/2013 pN0 (i+) Oncotype DX score of 11 Status post completion of radiation therapy 04/13/2014 received 5006 cGy utilizing hypo-fractionation Required post radiation wound care " Hypercholesteremia (Chronic) Hypertension (Chronic) Depression (Chronic) Hypercalcemia (Chronic) Elevated alkaline phosphatase level (Chronic) Dehydration (Resolved) Gastritis (Resolved) Surgical History H/O lumbosacral spine surgery (Chronic) S/P radiotherapy (Chronic) Status post right partial knee replacement (Chronic) S/P breast lumpectomy (Chronic) History of breast lump/mass excision History of partial mastectomy of left breast Hx of dilation and curettage Hx of oral surgery Family History Daughter Breast cancer Mother Aortic aneurysm Renal failure Brother Aortic aneurysm Prostate cancer Father Aortic aneurysm Hypertension Pure hypercholesterolemia Grandmother (Maternal) Colon cancer Unknown Diabetes Social History Preferred Language: Tongan Communication Ability: Effective Customs Entry Clerk Required: No Beliefs That Will Affect Care: None marital status: / Current Living Situation: Alone Current Living Situation Comment: Daughter living with mother temporarily. current occupational status: retired Other Information That Helps Us Care for You: No Feels Safe at Home: Yes Safety Concerns: Feels Safe At This Time Smoking Status: Former smoker (AGES [age]) Tobacco Type: cigarettes ; Cigarettes Per Day: 10-20 ; Do You Dip or Chew Tobacco: No ; Smoking End Date: 2017 ; Second Hand Exposure: Yes (PARENTS AND FORMER SPOUSE) ; Tobacco Cessation Education Requested by Patient: No Hx Alcohol Use: No Hx Substance Use: No Physical Exam Psychiatric: Orientation: alert, oriented x 3 and cooperative (though admittedly not feeling up for long conversation) Apperance: appropriately dressed (in hospital gown), + disheveled and appeared stated age Eye Contact: + fair eye contact Motor Behavior: no abnormal motor movements (observed while laying in bed) Speech: normal rate/rhythm/volume of speech Affect: + depressed affect (subdued; admittedly is not feeling well physically) Mood: no depressed mood and no anxious mood "I'm just frustrated. I'm not feeling any better." Thought Process: goal directed thought process, linear/logical thought process, clear/coherent thought process and thought association intact Thought Content: reality based without delusions; no hopelessness (frustration reportedly only related to physical symptoms) Suicidal Thoughts: denies suicidal thoughts, denies suicidal plan and denies suicidal intent Did make a gesture with her hand as if she was shooting a gun, but quickly states this is not something she is considering or would ever do Homicidal Thoughts: denies homicidal thoughts Hallucinations: no auditory hallucinations and no visual hallucinations Cognition: remote memory grossly intact, attention grossly intact and language grossly intact Insight: good insight Judgement: good judgement Vital Signs (Past 24 Hours): Last Vital Signs Temp 36.7 C 01/20/19 07:16 Pulse 78 01/20/19 08:12 Resp 18 01/20/19 07:16 BP 168/73 H 01/20/19 07:16 Pulse Ox 91 01/20/19 07:16 Review of Systems Constitutional: reports general malaise Cardiovascular: denied Respiratory: reports productive cough, shortness of breath Gastrointestinal: denied Neurological: denied Psychiatric: denies symptoms other than stated above Total of at least 10 systems reviewed, pertinent positives as above and in HPI. Results & Data Medications Administered Acetaminophen (Tylenol) 650 mg PO Q4H PRN PRN Reason: pain/fever Stop: 02/14/19 19:02 Last Admin: 01/16/19 17:15 Dose: 650 mg Documented by: [id number] Admin: 01/16/19 05:07 Dose: 650 mg Documented by: [id number] Acetylcysteine (Mucomyst 10%) [address] [facility] Stop: 02/18/19 18:59 Last Admin: 01/20/19 06:49 Dose: 3 ml Documented by: [id number] Admin: 01/19/19 19:02 Dose: 3 ml Documented by: [id number] Albuterol (Duoneb) [address] [facility] Stop: 02/14/19 19:02 Last Admin: 01/20/19 06:49 Dose: 3 ml Documented by: [id number] Admin: 01/19/19 19:01 Dose: 3 ml Documented by: [id number] Admin: 01/19/19 15:19 Dose: 3 ml Documented by: [id number] Admin: 01/19/19 11:05 Dose: 3 ml Documented by: [id number] Admin: 01/19/19 07:02 Dose: Not Given Documented by: [id number] Admin: 01/18/19 18:54 Dose: 3 ml Documented by: [id number] Admin: 01/18/19 15:14 Dose: 3 ml Documented by: [id number] Admin: 01/18/19 11:23 Dose: 3 ml Documented by: [id number] Admin: 01/18/19 06:55 Dose: 3 ml Documented by: [id number] Admin: 01/17/19 19:11 Dose: 3 ml Documented by: [id number] Admin: 01/17/19 15:01 Dose: 3 ml Documented by: [id number] Admin: 01/17/19 10:54 Dose: 3 ml Documented by: [id number] Admin: 01/17/19 06:51 Dose: 3 ml Documented by: [id number] Admin: 01/16/19 20:02 Dose: 3 ml Documented by: [id number] Admin: 01/16/19 15:08 Dose: 3 ml Documented by: [id number] Admin: 01/16/19 11:02 Dose: 3 ml Documented by: [id number] Admin: 01/16/19 07:10 Dose: 3 ml Documented by: [id number] Admin: 01/15/19 19:48 Dose: 3 ml Documented by: [id number] Amlodipine Besylate (Norvasc) 5 mg PO QAM [facility] Stop: 02/19/19 08:59 Last Admin: 01/20/19 08:41 Dose: 5 mg Documented by: [id number] Buspirone HCl (Buspar) 7.5 mg PO TID [facility] Stop: 02/17/19 20:59 Last Admin: 01/20/19 08:39 Dose: 7.5 mg Documented by: [id number] Admin: 01/19/19 21:08 Dose: 7.5 mg Documented by: [id number] Admin: 01/19/19 14:33 Dose: Not Given Documented by: [id number] Admin: 01/19/19 10:59 Dose: 7.5 mg Documented by: [id number] Admin: 01/18/19 20:05 Dose: 7.5 mg Documented by: [id number] Enoxaparin Sodium (Lovenox) 40 mg SQ QAM [facility] Stop: 02/15/19 08:59 Last Admin: 01/20/19 08:42 Dose: 40 mg Documented by: [id number] Admin: 01/19/19 11:00 Dose: 40 mg Documented by: [id number] Admin: 01/18/19 09:01 Dose: 40 mg Documented by: [id number] Admin: 01/17/19 10:40 Dose: 40 mg Documented by: [id number] Cosigned by: [id number] Admin: 01/16/19 08:41 Dose: 40 mg Documented by: [id number] Guaifenesin (Mucinex) 600 mg PO Q12 [facility] Stop: 02/18/19 20:59 Last Admin: 01/20/19 08:41 Dose: 600 mg Documented by: [id number] Admin: 01/19/19 21:09 Dose: 600 mg Documented by: [id number] Hydrochlorothiazide (Hctz) 25 mg PO QAM [facility] Stop: 02/15/19 08:59 Last Admin: 01/20/19 08:41 Dose: 25 mg Documented by: [id number] Admin: 01/19/19 10:59 Dose: 25 mg Documented by: [id number] Admin: 01/18/19 11:07 Dose: 25 mg Documented by: [id number] Admin: 01/17/19 10:39 Dose: 25 mg Documented by: [id number] Cosigned by: [id number] Admin: 01/16/19 08:37 Dose: 25 mg Documented by: [id number] Ioversol (Optiray 320 125ml) 92 ml IV ONCE PRN PRN Reason: Interaction Checking Stop: 01/20/19 13:14 Last Admin: 01/16/19 13:16 Dose: 92 ml Documented by: [id number] [facility]: 02/15/19 08:59 Last Admin: 01/20/19 08:41 Dose: 40 mg Documented by: [id number] Admin: 01/19/19 10:59 Dose: 40 mg Documented by: [id number] Admin: 01/18/19 09:01 Dose: 40 mg Documented by: [id number] Admin: 01/17/19 10:38 Dose: 40 mg Documented by: [id number] Cosigned by: [id number] Admin: 01/16/19 08:36 Dose: 40 mg Documented by: [id number] Morphine Sulfate (Morphine Sulfate) 2 mg IV Q4H PRN PRN Reason: Pain Stop: 01/29/19 19:02 Last Admin: 01/19/19 16:08 Dose: 2 mg Documented by: [id number] Admin: 01/18/19 23:21 Dose: 2 mg Documented by: [id number] Admin: 01/18/19 09:13 Dose: 2 mg Documented by: [id number] Admin: 01/17/19 10:59 Dose: 2 mg Documented by: [id number] Cosigned by: [id number] Admin: 01/16/19 18:32 Dose: 2 mg Documented by: [id number] Prednisone (Prednisone) 50 mg PO QAM [facility] Stop: 02/16/19 08:59 Last Admin: 01/20/19 08:41 Dose: 50 mg Documented by: [id number] Admin: 01/19/19 10:57 Dose: 50 mg Documented by: [id number] Admin: 01/18/19 08:59 Dose: 50 mg Documented by: [id number] Admin: 01/17/19 10:37 Dose: 50 mg Documented by: [id number] Cosigned by: [id number] Fluticasone/Salmeterol (Advair Diskus 250/50) 1 puffs INH BID [facility] Stop: 02/14/19 20:59 Last Admin: 01/20/19 08:39 Dose: 1 puffs Documented by: [id number] Admin: 01/19/19 21:09 Dose: 1 puffs Documented by: [id number] Admin: 01/19/19 10:59 Dose: 1 puffs Documented by: [id number] Admin: 01/18/19 20:05 Dose: 1 puffs Documented by: [id number] Admin: 01/18/19 09:02 Dose: 1 puffs Documented by: [id number] Admin: 01/17/19 20:13 Dose: 1 puffs Documented by: [id number] Admin: 01/17/19 10:41 Dose: 1 puffs Documented by: [id number] Cosigned by: [id number] Admin: 01/16/19 21:05 Dose: 1 puffs Documented by: [id number] Admin: 01/16/19 08:38 Dose: 1 puffs Documented by: [id number] Admin: 01/15/19 21:13 Dose: Not Given Documented by: [id number] Sertraline HCl (Zoloft) 150 mg PO DAILY [facility] Stop: 02/17/19 08:59 Last Admin: 01/20/19 08:40 Dose: 150 mg Documented by: [id number] Admin: 01/19/19 10:57 Dose: 150 mg Documented by: [id number] Admin: 01/18/19 08:59 Dose: 150 mg Documented by: [id number] Tiotropium [place] (Spiriva) 2 puffs INH DAILY [facility] Stop: 02/17/19 08:59 Last Admin: 01/20/19 08:43 Dose: 2 puffs Documented by: [id number] Admin: 01/19/19 11:00 Dose: 2 puffs Documented by: [id number] Admin: 01/18/19 09:04 Dose: 2 puffs Documented by: [id number] Coding Level of Care Code 14352 U Intl Hosp Care Lvl 2
[2019-01-20] MEDS ORDERED: POTASSIUM CHLORIDE 20 MEQ TABCR PO STA (10:54)
[2019-01-20] MEDS ORDERED: levoFLOXacin 750 MG TAB PO SCH (11:00)
[2019-01-20] MEDS: ACETAMINOPHEN 325 MG TAB PO PRN (12:52)
[2019-01-20] MEDS: POTASSIUM CHLORIDE 20 MEQ TABCR PO SCH (23:29)
[2019-01-21 00:09] LABS: Arsenic Blood <3 mcg/L (<23); Collection Sample Venous; Lead Blood 2 mcg/dL (<5); Mercury, blood <4 mcg/L (<=10)
[2019-01-21 06:49] LABS: Basophils # (auto) 0.02 K/uL (0-0.2); Basophils % (auto) 0.2 %; Eosinophils # (auto) 0.06 K/uL (0-0.5); Eosinophils % (auto) 0.5 %; Hematocrit (blood only) 41.2 % (37-47); Immature Granulocytes # (auto) 0.12 K/uL (0.00-0.02); Lymphocytes # (auto) 2.27 K/uL (1.2-3.4); Lymphocytes % (auto) 18.5 %; Mean Corpuscular Hemoglobin 30.4 pg (25-34); Mean Corpuscular Volume 89.4 fL (80-100); Monocytes # (auto) 1.47 K/uL (0.11-0.59); Neutrophils # (auto) 8.35 K/uL (1.4-6.5); Neutrophils % (auto) 67.8 %; Platelet Count 264 K/uL (130-400); RDW Coefficient of Variation 13.3 % (11.5-14.5); RDW Standard Deviation 43.7 fL (36.4-46.3); Red Blood Count 4.61 M/uL (4.2-5.4); White Blood Count 12.29 K/uL (4.8-10.8)
[2019-01-21 07:16] LABS: BUN Creatinine Ratio 24.8 (10-20); Calcium 10.4 mg/dl (8.5-10.1); Est GFR (African American) 80.6; Est GFR (Non-African American) 69.6; Potassium 3.7 mmol/L (3.5-5.1)
[2019-01-21] MEDS: ALBUT/IPRATROP 3MG/0.5MG NEB 3 ML VIAL NEB SCH ×4 (07:18→18:50)
[2019-01-21] MEDS: ACETYLCYSTEINE 10% INHAL SOLN 4 ML **DISPENSED BY RESP. INH SCH ×4 (07:25→18:50)
[2019-01-21] MEDS: FLUTICASONE/SALMETEROL 250/50 (ADVAIR) 14 PUFF/1 INHALER INH SCH ×2 (08:43→21:26)
[2019-01-21] MEDS: LISINOPRIL 40 MG TAB PO SCH (08:43)
[2019-01-21] MEDS: POTASSIUM CHLORIDE 20 MEQ TABCR PO SCH (08:43)
[2019-01-21] MEDS: predniSONE 20 MG TAB PO SCH (08:44)
[2019-01-21] MEDS: AMLODIPINE BESYLATE 5 MG TAB PO SCH (08:45)
[2019-01-21] MEDS: SERTRALINE HCL 100 MG TABLET PO SCH (08:45)
[2019-01-21] MEDS: guaiFENesin 600 MG TABCR PO SCH ×2 (08:45→21:27)
[2019-01-21] MEDS: ENOXAPARIN INJ 40 MG/0.4 ML SYR SQ SCH (08:47)
[2019-01-21] MEDS: hydroCHLOROthiazide 25 MG TAB PO SCH (08:47)
[2019-01-21] MEDS: TIOTROPIUM BROMIDE 5 PUFF/90 MCG INH INH SCH (09:13)
[2019-01-21] MEDS ORDERED: hydroCHLOROthiazide 25 MG TAB PO SCH (09:15)
[2019-01-21 09:25] LABS: Phosphorus 2.9 mg/dl (2.5-4.9)
[2019-01-21] MEDS: AMOXICILLIN/CLAVULANATE 875 MG TAB PO SCH ×2 (09:49→17:56)
[2019-01-21] MEDS ORDERED: DEXTROMETHORPHAN POLYMR COMPLX 30 MG/5 ML UDP PO PRN (12:14)
[2019-01-21] MEDS ORDERED: OXYCODONE/ACETAMINOPHEN 5mg/325mg TAB PO ONE (12:16)
[2019-01-21] MEDS: SPIRONOLACTONE 25 MG TAB PO SCH (12:54)
--- NOTE | 2019-01-21 13:32 | Hospitalist Progress Note ---
Date of Service January 21, 2019 Assessment & Plan (1) COPD exacerbation: * Minimal improvement * Secondary to viral infection. Has diagnosis of Emphysema on most recent PFT * 3rd exacerbation in < 6 months (most recent October 2018) -- patient initiated on spiriva per most recent outpatient pulmonology note -- increased dose to 2 puffs/day * Pox 87% on RA in ED, currently 96% on RA -- titrate O2 as needed to maintain sat > 90% * CXR without acute process on 01/15 * Chest CTA without evidence for PE, consolidation or pleural effusion. mild diffuse peribronchial thickening suggests reactive air disease. 6mm pleural- based nodule RLL- unchanged from 11/06. * Duonebs QIDR -- change to while awake -- added mucomyst to nebulizer treatment * Prednisone decreased to 40mg today-- will taper * Sputum Cx -- H. FLU --> Patient to complete course of Augmentin * Dextromethorphan for continued cough * Guaifenesin * Chest physiotherapy BID * CXR 01/20 suggestive of nonspecific bronchitis. No focal infiltrate. Procalcitonin wnl * D/C Flutter Valve * Incentive spirometer Q1WA * Discussion with pulmonary regarding management- agree with current plan * PT/OT (2) Anxiety and depression: * Minimal improvement * Severe-- stressors of living situation -- daughter supposed to move out, etoh abuse * Patient states she was recently titrated to 200mg daily of her sertraline (was getting 100mg on admission, outpatient psych with increase to 150mg) --> increased to 200mg daily * Per outpatient notes, patient was also to start xanax 0.25mg prn -- when asked, patient denies taking any of this medication * Increased buspar to 7.5mg TID from her previous 5mg * Per patient daughter request, heavy metal panel pending * Psych consult -- appreciate input -- rec to continue current reg * Daughter now inpatient on second floor- was picked up by police -- per patient, RANDY was > 400 (3) Hypertension: * Elevated - BP currently 158/90 --multiple factors, increased anxiety * Continue lisinopril 40mg * D/C HCTZ * Amlodipine 5mg * Start spironolactone due to persistent hypokalemia * Will continue to monitor (4) Hypoxia: * As above * Pulse ox 87% on RA in ED, * O2 sat 92% on RA currently-- will continue to follow (5) Hypokalemia: * Stable 3.7 today- had been receiving 20 MEQ KCL BID yesterday. * Will d/c hctz, initiated spironolactone * Benjamin, renin pending * Repeat level in AM (6) Chronic back pain: * Chronic- Patient with complaints of chronic low back pain, muscle aches. CK wnl. * S/P lumbar spine surgery [address] Bauer in [place] * Patient has been seen in pain clinic Mar 2017. Injections without relief. Evaluated by Dr. Baez/ PT/Chiropractor from [facility]. Trial of cymbalta as well as lyrica without benefit. * MRI November 2018 with post surgical changes/no spinal cord compression * Patient would like to be seen by pain clinic at [facility] moving forward * Morphine prn * 1 x dose Oxycodone today (7) Hypercalcemia: * Elevated today at 10.4 * Per records, has been running >9 -- ?? secondary to hctz use * Will avoid PTH testing for now * Continue to monitor in AM (8) Pulmonary nodule: * On CT: There is a 6 mm pleural-based nodule in the right lower lobe. This is pathologically indeterminant and unchanged from 11/06/2018. * Follow-up is recommended as per the Fleischner criteria. * Patient follows locally with Zeenat Granados PA-C -- follow-up with lung nodule clinic (9) DVT prophylaxis: * SCDs, enoxaparin Dispo: d/c tomorrow pending evaluation Supervising Physician Co-Signing Physician Notes Attending Attestation: Chart reviewed in detail, care plan d/w KATERIN Olmstead. I agree w/ the simmnos components of her documentation except -- in A/P, under COPD exacerbation, this flare is not due to viral process but 2nd to H flu. Traditionally abx of choice is augmentin and thus will change to such. Continue steroid taper. Mild hypercalcemia - stop HCTZ. If calcium level is persistently high then begin hyperparathyroidism work-up. Anxiety - severe - cont buspar and SSRI. Lung nodule - f/u lung nodule clinic post-d/c. Labs/vitals again acceptable today. Anticipate d/c tomorrow. Hussein Hirsch MD Subjective Patient evaluated at bedside this morning. States cough has been less p roductive, but still yellow in quality. States her daughter was found intoxicated at her home last night and brought to the emergency room but does not know anything more. Patient states she wasn't s ure if she should call or not: "I would be ok if something happened to her". She states she does feel "scared" to go home alone in case she were to become short of breath. Continues to feel fatigued. States she is concerned about her continued elevated blood pressure, but is willing to adjust medications to get better control. Discussed findings of sputum culture and switch to different antibiotic for coverage. Patient agreeable to plan. Review of Systems Constitutional: no fever and no chills Eyes: no diplopia and no eye pain Respiratory: + cough (less productive) and + change in sputum (decrease) Cardiovascular: no chest pain and no edema Gastrointestinal: no nausea, no vomiting, no constipation and no diarr hea/loose stools Psychiatric: + depression and + hopelessness Physical Exam Constitutional: WD/WN, vitals as above no acute distress Eyes: PERRL, conjunctivae normal, anicteric sclerae Neck: trachea midline, no thyromegaly Respiratory: able to speak in complete sentences; no labored breathing Auscultation: + diminished lung sounds (throughout) Cardiovascular: RRR, no murmur, no edema Gastrointestinal (Abdomen): normal bowel sounds, soft, nontender, no hepatosplenomegaly Skin: no rashes, warm and dry Psychiatric: Mood: + depressed mood Results & Data Vital Signs (Past 12 Hours) Vital Signs Temp Pulse Pulse Resp BP Pulse Ox 01/21/19 12:19 36.7 C 91 H 18 158/90 H 92 01/21/19 09:00 84 01/21/19 07:25 71 18 94 01/21/19 07:16 36.7 C 81 18 146/90 H 92 01/21/19 05:22 149/88 H 01/21/19 03:22 36.7 C 90 20 151/93 H 92 PG Care Time/CCT Total # of Minutes Spent Total Time Spent with Patient: Total time spent is greater than 50% in coordination of care (as documented) at patient's floor/unit and/or counseling patient: (1) Hypertension Hypertension type: essential hypertension Qualified Code(s): I10 - Essential (primary) hypertension
[2019-01-22] MEDS: ALBUT/IPRATROP 3MG/0.5MG NEB 3 ML VIAL NEB SCH ×4 (07:03→19:18)
[2019-01-22] MEDS: ACETYLCYSTEINE 10% INHAL SOLN 4 ML **DISPENSED BY RESP. INH SCH ×4 (07:04→19:19)
[2019-01-22 07:29] LABS: Hematocrit (blood only) 40.5 % (37-47); Hemoglobin 14.1 g/dL (12.0-16.0); Mean Corpuscular Hemoglobin 30.8 pg (25-34); Mean Corpuscular Hgb Conc 34.8 g/dL (32-36); Mean Corpuscular Volume 88.4 fL (80-100); Mean Platelet Volume 9.3 fL (7.4-10.4); Platelet Count 310 K/uL (130-400); RDW Coefficient of Variation 13.4 % (11.5-14.5); RDW Standard Deviation 43.7 fL (36.4-46.3); Red Blood Count 4.58 M/uL (4.2-5.4)
[2019-01-22 08:02] LABS: BUN Creatinine Ratio 23.8 (10-20); Calcium 9.7 mg/dl (8.5-10.1); Creatinine Clr Calc Pharmacy 57.6 ml/min; Est GFR (African American) 80.6; Est GFR (Non-African American) 69.6; Magnesium 2.1 mg/dl (1.8-2.4); Potassium 3.6 mmol/L (3.5-5.1)
[2019-01-22] MEDS: SERTRALINE HCL 100 MG TABLET PO SCH (09:28)
[2019-01-22] MEDS: guaiFENesin 600 MG TABCR PO SCH (09:28)
[2019-01-22] MEDS: AMOXICILLIN/CLAVULANATE 875 MG TAB PO SCH (09:28)
[2019-01-22] MEDS: LISINOPRIL 40 MG TAB PO SCH (09:28)
[2019-01-22] MEDS: FLUTICASONE/SALMETEROL 250/50 (ADVAIR) 14 PUFF/1 INHALER INH SCH (09:28)
[2019-01-22] MEDS: ENOXAPARIN INJ 40 MG/0.4 ML SYR SQ SCH (09:29)
[2019-01-22] MEDS: AMLODIPINE BESYLATE 5 MG TAB PO SCH (09:30)
[2019-01-22] MEDS: predniSONE 20 MG TAB PO SCH (09:31)
[2019-01-22] MEDS: TIOTROPIUM BROMIDE 5 PUFF/90 MCG INH INH SCH (09:31)
[2019-01-22] MEDS: SPIRONOLACTONE 25 MG TAB PO SCH (09:38)
--- NOTE | 2019-01-22 10:51 | Hospitalist Progress Note ---
Date of Service January 22, 2019 Results & Data Vital Signs (Past 12 Hours) Vital Signs Temp Pulse Resp BP Pulse Ox 01/22/19 07:33 36.8 C 79 18 163/81 H 90 01/22/19 07:07 71 18 91 01/21/19 23:00 36.9 C 92 H 18 145/86 H 92 Laboratory Results 01/22/19 01/22/19 Range/Units 07:10 07:10 WBC 11.50 H (4.8-10.8) K/uL RBC 4.58 (4.2-5.4) M/uL Hgb 14.1 (12.0-16.0) g/dL Hct 40.5 (37-47) % MCV 88.4 (80-100) fL MCH 30.8 (25-34) pg MCHC 34.8 (32-36) g/dL RDW Std Deviation 43.7 (36.4-46.3) fL RDW Coeff of Hipolito 13.4 (11.5-14.5) % Plt Count 310 (130-400) K/uL MPV 9.3 (7.4-10.4) fL Sodium 140 (136-145) mmol/L Potassium 3.6 (3.5-5.1) mmol/L Chloride 109 H (98-107) mmol/L Carbon Dioxide 25 (21-32) mmol/L Anion Gap 6.0 (3-11) BUN 19 H (7-18) mg/dl Creatinine 0.81 (0.6-1.2) mg/dl Est Cr Clr Drug Dosing 57.6 ml/min Est GFR ( Amer) 80.6 Est GFR (Non-Af Amer) 69.6 BUN/Creatinine Ratio 23.8 H (10-20) Glucose 85 (70-99) mg/dl Calcium 9.7 (8.5-10.1) mg/dl Magnesium 2.1 (1.8-2.4) mg/dl PG Care Time/CCT Total # of Minutes Spent Total Time Spent with Patient: Total time spent is greater than 50% in coordination of care (as documented) at patient's floor/unit and/or counseling patient:
[2019-01-22] MEDS ORDERED: SPIRONOLACTONE 25 MG TAB PO SCH (12:45)
--- NOTE | 2019-01-22 14:54 | Discharge Summary ---
Date of Service January 22, 2019 Admission HPI Per Admitting Provider Ms. Thomas presents today for sob, muscle aches, productive cough with brown/yellow sputum since Thursday or Thursday. She has not had much appetite and has not been eating or drinking much. No nausea, vomiting or change in bowels or bladder. No fevers, sore throat or rhinorrhea. The muscle aches are very painful and limiting range of motion in her right shoulder. They are all over her body but particularly shoulders, neck and left hip. 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, daughter lives with her Family: renal failure Admission Exam Per Admitting Provider General: no distress Eyes: normal inspection, PERLL Respiratory: chest non tender, coarse bases bilaterally, no respiratory distress, no accessory muscle use Cardiac: regular rate and rhythm, no rub or gallop, no murmur, no edema, no jvd GI/: active bowel sounds, no abd pain or tenderness, soft, non distended Extremities: decreased range of motion right arm and tender, otherwise strength normal Neuro:oriented x 3, moves all extremities Psych: alert, normal mood and affect Skin: normal color, dry Principal Diagnosis COPD Exacerbation secondary to H. influenzae Discharge Exam Constitutional WD/WN, vitals as above no acute distress Eyes PERRL, conjunctivae normal, anicteric sclerae Neck trachea midline, no thyromegaly Respiratory normal respiratory effort and able to speak in complete sentences; no respiratory distress Auscultation: + diminished lung sounds (throughout); no crackles and no wheezes Cardiovascular RRR, no murmur, no edema Gastrointestinal (Abdomen) normal bowel sounds, soft, nontender, no hepatosplenomegaly Musculoskeletal no cyanosis or clubbing, extremities motor strength 5/5 Skin no rashes, warm and dry Neurologic PERRL, EOMI, accommodation nl, no face palsy, no dysarthria Discharge Data Allergies Allergy/AdvReac Type Severity Reaction Status Date / Time Cipro AdvReac Intermediate REDNESS Verified 09/24/17 08:08 ALONG VEIN ciprofloxacin AdvReac Intermediate REDNESS Verified 12/07/18 09:34 ALONG VEIN atorvastatin AdvReac Unknown muscle pain Verified 12/07/18 09:34 simvastatin AdvReac Unknown muscle pain Verified 12/07/18 09:34 Consultations 01/15/19 15:15 ED Decision to Admit Stat 01/19/19 16:40 Consult Psychiatry Routine Ordered Studies 01/16/19 11:33 CT angio chest PE protocol Routine Hospital Course (1) COPD exacerbation: * Secondary H. influenzae. Also has diagnosis of Emphysema on most recent PFT * 3rd exacerbation in < 6 months (most recent October 2018) -- patient initiated on spiriva per most recent outpatient pulmonology note -- increased dose to 2 puffs/day * Pox 87% on RA in ED. 93% on RA prior to discharge. 2-step prior to discharge without need for O2. * Chest CTA without evidence for PE, consolidation or pleural effusion. mild diffuse peribronchial thickening suggests reactive air disease. 6mm pleural- based nodule RLL- unchanged from 11/06. CXRs as above. * Prednisone taper , nebulizer txs, chest physiotherapy. * Sputum Cx -- H. FLU --> transitioned to Levaquin as h. influenza betalactamase positive and not responsive to Augmentin * Hospital course complicated due to stressors related to living situation with daughter and etoh abuse leading to increased anxiety and depression. Increased buspar to 7.5mg TID and sertraline 200mg daily. * Persistent HTN and hypokalemia despite repletion. Cortisol normal. HCTZ discontinued and spironolactone 12.5mg BID initiated with improvement in blood pressure and potassium (2) Anxiety and depression: * Improved prior to discharge -- Related to stressors of living situation -- daughter supposed to move out, etoh abuse. * Patient stated she had been taking 200mg daily of her sertraline (was getting 100mg on admission, outpatient psych with increase to 150mg) --> increased to 200mg as she had been taking prior per her history. * Increased buspar to 7.5mg TID from her previous 5mg during hospitalization with better control. * family request-- heavy metal panel drawn -- without abnormality * Psych consult during stay with changes as above (3) Hypertension: * As above. Continued home lisinopril. D/C Hctz. * Initially had added amlodipine as well, however addition of BID spironolactone with adequate control. BMP ThursdayJan 26. (4) Chronic back pain: * Chronic- Patient with on and off complaints of chronic low back pain, muscle aches during stay. CK wnl. Unchanged from baseline pain. * S/P lumbar spine surgery [address] Bauer in [place]. Patient had been seen in pain clinic Mar 2017. Injections without relief. Evaluated by Dr. Baez/ PT/Chiropractor from [facility]. Trial of cymbalta as well as lyrica without benefit. MRI November 2018 with post surgical changes/no spinal cord compression * Patient stated she will be seeking services at pain clinic at [facility] moving forward * Had received morphine prn during stay. Oxy x 1 (5) Pulmonary nodule: * On CT: There is a 6 mm pleural-based nodule in the right lower lobe. This is pathologically indeterminant and unchanged from 11/06/2018. * Follow-up is recommended as per the Fleischner criteria. * Patient follows locally with Zeenat Granados PA-C -- follow-up with lung nodule clinic. (6) Hypoxia: * As above--Pulse ox 87% on RA in ED. 93% on RA prior to d/c. 2-step without O2 need with activity (7) Hypokalemia: * As above * Benjamin, Renin pending (8) DVT prophylaxis: * SCDs, enoxaparin while inpatient Total Time Total Time Spent Total Time Spent (In Minutes): 60 Discharge Plan Discharge Items Patient Disposition: Home - Self-Care Reason For Visit: HYPOXIA Discharge Diagnosis: COPD Flare, Pneumonia Condition on Discharge: Good Activity: As commented below Activity Comment: Gradually increase as tolerated. Non-emergency contact: Primary Care Provider Call non-emergency contact if: you have any medication questions Follow-up/Referrals: Annette Dowd MD [Primary Care Provider] - (Please follow up within 1-2 weeks.) Diet: Regular Ambulatory Orders: Basic Metabolic Panel (Routine) Timeframe: 4 Days Location: Determined by Patient Ordered By: Anabela Rodriguez Attending Provider Instructions: While hospitalized, it has been determined that you had a flare up of COPD as well as a pneumonia. This has been treated with multiple agents and you are being sent home with LEVAQUIN (levofloxacin) 750mg daily. After testing, it has been determined that this is the best choice for the particular bacteria that you were found to have. Please take as prescribed. You have been sent prescriptions for Spiriva and Advair. - These are the inhalers you have been on while in the hospital. It is recommended that you rinse your mouth after use of Advair to prevent thrush/yeast infection in your mouth. With regards to your blood pressure medications, the following adjustments have been made: -- DISCONTINUE your Hydrochlorothiazide -- START ALDACTONE (Spironolactone) 12.5mg twice daily You should continue taking your lisinopril as prescribed, 40mg daily. You have been sent a prescription for prednisone (steroids) taper. Please take as prescribed. The following medication changes have been made regarding your buspar and zoloft. -- Continue zoloft 200mg daily. --Your buspar has been increased to 7.5mg THREE times daily. A prescription has been sent. You should have repeat labs (BMP- basic metabolic profile) done on Thursday to monitor your electrolytes since we have made changes to your blood pressure medications. It is recommended that you check your blood pressures at home to monitor It is recommended that you follow up with the lung nodule program for follow up imaging as discussed. You will be called on Thursday with an appointment. It is recommended to abstain from all smoking, as this may worsen your condition along with many other adverse side effects. It has been a pleasure being apart of the care team during your hospitalization. Thank you! Please return to the emergency room if you have worsening shortness of breath or for any symptoms that are concerning for you. Pending Studies at Discharge: Yes Studies:: Renin, Aldosterone Stand-Alone Forms: My [facility] Dial a Dealer, Smoking Cessation Medications and DC Order Prescriptions: New buspirone 5 mg Tablet 7.5 mg PO TID 30 Days Qty: 135 RF: 0 fluticasone propion-salmeterol [Advair Diskus] 250-50 mcg/dose Blister With Device 1 puffs inhalation BID Qty: 14 RF: 0 prednisone 20 mg Tablet 20 mg PO DAILY Qty: 15 RF: 0 spironolactone 25 mg Tablet 12.5 mg PO BID@0900,1700 Qty: 60 RF: 0 levofloxacin 750 mg Tablet 750 mg PO Q24H 7 Days Qty: 7 RF: 0 Continued Oxygen Home Liters Per Minute .ROUTE .MEDSUPPLY Qty: 2 RF: 0 Spiriva Respimat 2.5 mcg/actuation mist 2 puffs INH DAILY Qty: 4 RF: 4 albuterol sulfate [Ventolin HFA] 90 mcg/actuation HFA aerosol inhaler 2 puffs INH Q4H PRN (Reason: shortness of breath or wheezing) Qty: 18 RF: 3 lisinopril 40 mg tablet 40 mg PO QAM RF: 0 sertraline 100 mg Tablet 200 mg PO DAILY RF: 0 Discontinued fluticasone propion-salmeterol [Advair Diskus] 250-50 mcg/dose Blister With Device 1 puff inhalation BID Qty: 1 RF: 2 buspirone 5 mg Tablet 5 mg PO BID RF: 0 Discharge Orders: Discharge Order (Routine); Ordered 01/22/19 Ordered By: Anabela Olmstead Admission Data Admit Date/Time: 01/15/19 16:37 Attending Provider: Lalita Musa Admit Provider: Cleveland Doss Primary Care Provider: Annette Dowd V. Other Providers: Ria Zelaya ; Elio Kingsley Other Interventions: Discharge Summary Assessment (RN) Last Done: 01/22/19 17:34 DC Date/Time DO NOT enter until pt leaves facility: 01/22/19 19:33
[2019-01-22 15:10] VITALS: BP 107/67; TEMP 99.3
[2019-01-22] MEDS ORDERED: levoFLOXacin 750 MG TAB PO SCH (17:00)
[2019-01-22 17:37] VITALS: PULSE 99; O2SAT 93
== END 2019-01-22 19:33 | disposition home or self-care (01) | DRG 192 ==
LOC: ED 13:15 → SUATTDRO 16:37 → 2W 16:37

== ENCOUNTER 2020-03-31 11:31 | Inpatient (IN) ==
[2020-03-31] MEDS ORDERED: MoRPHine SULFATE 4 MG/ML 1 ML CARP\\VIAL IV STA (12:21)
--- NOTE | 2020-03-31 12:28 | Emergency Department Note ---
History of Present Illness General Chief complaint: Back Injury/Pain Time Seen by Provider: 03/31/20 12:12 Source: patient Mode of arrival: ambulatory Limitations: no limitations History of Present Illness Provider complaint: Back pain Maximum Pain Intensity: 9 This is a 79-year-old female who has longstanding history of back pain as well as back surgeries and follows up with Dr. Roth from pain management. The patient states that her chronic pain has been going on for 5 years or more. She states that she has had a significant worsening of her pain in the past 6 days. She describes it as a sharp burning pain that is in the low back region and radiates into the left buttock region and down the thigh into the castillo. She also states that she has a discomfort in the right anterior thigh. She denies any bowel or bladder dysfunction. Denies any urinary symptoms. No constipation or diarrhea. No abdominal pains. No fevers or recent illness. No trauma. She states that she was not doing anything unusual in her symptoms started. She is currently taking gabapentin and oxycodone for the pain. She states that this does not seem to help. She last saw Dr. Roth January Home Medications Medication Instructions Recorded Confirmed Type Oxygen Home #2 liter 12/22/18 02/24/20 Rx nebulizers #1 ea 02/03/19 02/24/20 Rx Flutter Valve #1 ea 04/11/19 02/24/20 Rx spironolactone 25 mg tablet 25 mg PO BID #180 tab 06/08/19 03/31/20 Rx lisinopril 40 mg tablet 40 mg PO QAM #90 tab 09/13/19 03/31/20 Rx buspirone 15 mg tablet 15 mg PO BID #60 tab 10/31/19 03/31/20 Rx cholecalciferol (vitamin D3) 50 mcg PO QAM 01/16/20 03/31/20 History igfmfmvc-xsgscja-fuwd-lutein 1 tab PO QAM 01/16/20 03/31/20 History albuterol sulfate 90 mcg/actuation 2 puff INH Q6H PRN #18 gm 01/25/20 03/31/20 Rx aerosol inhaler budesonide-formoterol HFA 160 2 puff INH BID #6 gm 01/25/20 03/31/20 Rx mcg-4.5 mcg/actuation aerosol inhaler ipratropium 0.5 mg-albuterol 3 mg 3 ml INH Q8H PRN #180 ml 01/25/20 03/31/20 Rx (2.5 mg base)/3 mL nebulization soln tiotropium bromide 2.5 2 puff INH QAM #4 g 01/25/20 03/31/20 Rx mcg/actuation mist for inhalation duloxetine 60 mg capsule,delayed See Rx Instructions PO QAM #1 cap 02/24/20 03/31/20 Rx release gabapentin 300 mg capsule 600 mg PO .COMPLEX cap 02/24/20 03/31/20 History pantoprazole 40 mg tablet,delayed 40 mg PO DAILY #90 tab 02/24/20 03/31/20 Rx release amlodipine 5 mg tablet 5 mg PO QAM #90 tab 02/27/20 03/31/20 Rx oxycodone 10 mg tablet 10 mg PO BID PRN #20 tab 03/22/20 03/31/20 Rx prednisone 10 mg PO DIRECTED 03/31/20 03/31/20 History Allergies Allergy/AdvReac Type Severity Reaction Status Date / Time nitrofurantoin Allergy Severe SOB, Verified 03/31/20 13:10 [From Macrobid] nausea, vomiting penicillin V Allergy Unknown CAN'T Verified 03/31/20 13:10 REMEMBER REACTION atorvastatin AdvReac Intermediate muscle pain Verified 03/31/20 13:10 ciprofloxacin AdvReac Intermediate REDNESS Verified 03/31/20 13:10 ALONG VEIN simvastatin AdvReac Intermediate muscle pain Verified 03/31/20 13:10 Past Med/Surg History Medical History Anxiety COPD (chronic obstructive pulmonary disease) Depression Dyspnea on exertion Facet arthritis of lumbar region Hearing decreased History of breast cancer 5 years ago - Left + surgery, no chemo Limb alert care status LUE no lab draws On home oxygen therapy 2 LPM QHS PRN > HAS DIFFICULTY WITH KEEPING ON AT HS Osteoarthritis Osteoporosis Spinal stenosis Stenosis of iliac artery Surgical History H/O lumbosacral spine surgery History of breast biopsy History of cataract surgery right and left History of colonoscopy History of D&C History of partial mastectomy of left breast History of right knee joint replacement History of tooth extraction Hx of oral surgery S/P breast lumpectomy Slow to wake up after anesthesia Family History Daughter Breast cancer Mother Aortic aneurysm Renal failure Brother Prostate cancer Aortic aneurysm Father Aortic aneurysm Pure hypercholesterolemia Hypertension Grandmother (Maternal) Colon cancer Unknown Diabetes Other No family history of adverse response to anesthesia Denies family history of Ovarian cancer Myocardial infarction Social History Smoking Status: Former smoker Tobacco Type: Cigarettes Cigarettes Per Day: 10-20; Second Hand Exposure: No; Hx Alcohol Use: No Hx Substance Use: No Preferred Language: [place]ian Communication Ability: Effective 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 current occupational status: retired Feels Safe at Home: Yes Seatbelt Use: always Assistive Devices: Glasses Review of Systems A total of 10 systems reviewed and were otherwise negative Physical Exam Vital Signs Vital Signs - 24 hr 03/31/20 11:42 03/31/20 13:20 03/31/20 15:03 Temperature 37.3 C Temperature Source Oral Pulse Rate 100 H Pulse Rate [Left Finger] 89 97 H Respiratory Rate 22 18 20 Blood Pressure 131/80 Blood Pressure [Right Arm] 105/68 121/96 Blood Pressure Mean 97 Blood Pressure Mean [Right Arm] 80 104 Pulse Oximetry 94 92 95 Oxygen Delivery Method Room Air Room Air Nasal Cannula Oxygen Flow Rate 2 Sepsis Recent Fever Within 48 Hours No Sepsis New/Unexplained Change in Mental Status N/A Sepsis Action Taken by Nursing No Action Required CONSTITUTIONAL/VITAL SIGNS: Reviewed / noted above. GENERAL: Non-toxic in appearance. INTEGUMENTARY: Warm, dry, and [place]. HEAD: Normocephalic. EYES: without scleral icterus or trauma. ENT/OROPHARYNX: clear and moist. LYMPHADENOPATHY/NECK: Is supple without lymphadenopathy or meningismus. RESPIRATORY: Lungs clear and equal. CARDIOVASCULAR: Regular rate and rhythm. GI/ABDOMEN: Soft and nontender. No organomegaly or pulsatile mass. No rebound or guarding. Normal bowel sounds. EXTREMITIES: Warm and well perfused. Negative straight leg bilaterally. She does have weakness in her left leg compared to the right at the level of the knee and hip. Normal sensation. Normal dorsiflexion of both toes bilaterally. BACK: No CVA tenderness. No rashes. NEUROLOGICAL: Intact without focal deficits. PSYCHIATRIC: normal affect. MUSCULOSKELETAL: Normally developed with good muscle tone. TRIAGE NURSING DOCUMENTATION REVIEWED. Course Administered Medications Discontinued Medications Hydromorphone HCl (Hydromorphone Inj 1 Mg/Ml Syringe) 1 mg IV NOW STA Stop: 03/31/20 13:45 Last Admin: 03/31/20 14:05 Dose: 1 mg Documented by: [id number] Morphine Sulfate (Morphine Sulfate 4 Mg/Ml 1 Ml Carp\Vial) 4 mg IV NOW STA Stop: 03/31/20 12:22 Last Admin: 03/31/20 13:14 Dose: 4 mg Documented by: [id number] Medical Decision Making Differential Diagnosis Differential considered includes cauda equina syndrome, conus medullaris, spinal cord compression syndrome, peripheral nerve compression, fractures or subluxations, intra-abdominal pathology such as abdominal aortic aneurysm or kidney stones, muscle strain, transverse myelitis, spinal cord injury. Medical Records Attestation: I reviewed the patient's medical records. Home Medications Current Medication List: was personally reviewed by me Laboratory Data Attestation: I reviewed the patient's lab results. Result diagrams: 03/31/20 13:17 03/31/20 14:14 Lab Results 03/31/20 03/31/20 03/31/20 Range/Units 13:17 13:17 14:14 WBC 19.83 H (4.8-10.8) K/uL RBC 5.11 (4.2-5.4) M/uL Hgb 15.9 (12.0-16.0) g/dL Hct 46.5 (37-47) % MCV 91.0 (80-100) fL MCH 31.1 (25-34) pg MCHC 34.2 (32-36) g/dL RDW Std Deviation 46.9 H (36.4-46.3) fL RDW Coeff of [place] 14.0 (11.5-14.5) % Plt Count 230 (130-400) K/uL MPV 9.6 (7.4-10.4) fL Immature Gran % (Auto) 0.3 % Neut % (Auto) 82.0 % Lymph % (Auto) 10.0 % [place] % (Auto) 7.2 % Eos % (Auto) 0.4 % Baso % (Auto) 0.1 % Neut # (Auto) 16.27 H (1.4-6.5) K/uL Lymph # (Auto) 1.99 (1.2-3.4) K/uL [place] # (Auto) 1.43 H (0.11-0.59) K/uL Eos # (Auto) 0.07 (0-0.5) K/uL Baso # (Auto) 0.01 (0-0.2) K/uL Immature Gran # (Auto) 0.06 H (0.00-0.02) K/uL Sodium 136 (136-145) mmol/L Potassium 4.5 (3.5-5.1) mmol/L Chloride 107 (98-107) mmol/L Carbon Dioxide 25 (21-32) mmol/L Anion Gap 4.0 (3-11) BUN 55 H (7-18) mg/dl Creatinine 1.16 (0.6-1.2) mg/dl Est Cr Clr Drug Dosing 40.7 ml/min Est GFR ( Amer) 51.9 Est GFR (Non-Af Amer) 44.7 BUN/Creatinine Ratio 47.7 H (10-20) Glucose 99 (70-99) mg/dl Calcium 9.5 (8.5-10.1) mg/dl Total Bilirubin 1.7 H (0.2-1) mg/dl AST 37 (15-37) U/L ALT 30 (12-78) U/L Alkaline Phosphatase 103 (45-117) U/L Total Creatine Kinase 332 H (26-192) U/L Total Protein 6.9 (6.4-8.2) gm/dl Albumin 2.9 L (3.4-5.0) gm/dl Globulin 4.0 (2.5-4.0) gm/dl Albumin/Globulin Ratio 0.7 L (0.9-2) Urine Color Urine Appearance (Clear) Urine pH (4.5-7.5) Ur Specific [place] (1.000-1.030) Urine Protein (Negative) Urine Glucose (UA) (Negative) Urine Ketones (Negative) Urine Blood (Negative) Urine Nitrite (Negative) Urine Bilirubin (Negative) Urine Urobilinogen (Negative) Ur Leukocyte Esterase (Negative) Urine WBC (Auto) (0-5) /hpf Urine RBC (Auto) (0-4) /hpf U Hyaline Cast (Auto) (0-5) /lpf U Epithel Cells (Auto) (0-5) /lpf Urine Bacteria (Auto) (Negative) 03/31/20 Range/Units 14:55 WBC (4.8-10.8) K/uL RBC (4.2-5.4) M/uL Hgb (12.0-16.0) g/dL Hct (37-47) % MCV (80-100) fL MCH (25-34) pg MCHC (32-36) g/dL RDW Std Deviation (36.4-46.3) fL RDW Coeff of [place] (11.5-14.5) % Plt Count (130-400) K/uL MPV (7.4-10.4) fL Immature Gran % (Auto) % Neut % (Auto) % Lymph % (Auto) % [place] % (Auto) % Eos % (Auto) % Baso % (Auto) % Neut # (Auto) (1.4-6.5) K/uL Lymph # (Auto) (1.2-3.4) K/uL [place] # (Auto) (0.11-0.59) K/uL Eos # (Auto) (0-0.5) K/uL Baso # (Auto) (0-0.2) K/uL Immature Gran # (Auto) (0.00-0.02) K/uL Sodium (136-145) mmol/L Potassium (3.5-5.1) mmol/L Chloride (98-107) mmol/L Carbon Dioxide (21-32) mmol/L Anion Gap (3-11) BUN (7-18) mg/dl Creatinine (0.6-1.2) mg/dl Est Cr Clr Drug Dosing ml/min Est GFR ( Amer) Est GFR (Non-Af Amer) BUN/Creatinine Ratio (10-20) Glucose (70-99) mg/dl Calcium (8.5-10.1) mg/dl Total Bilirubin (0.2-1) mg/dl AST (15-37) U/L ALT (12-78) U/L Alkaline Phosphatase (45-117) U/L Total Creatine Kinase (26-192) U/L Total Protein (6.4-8.2) gm/dl Albumin (3.4-5.0) gm/dl Globulin (2.5-4.0) gm/dl Albumin/Globulin Ratio (0.9-2) Urine Color [place] Urine Appearance Clear (Clear) Urine pH 5.0 (4.5-7.5) Ur Specific [place] 1.025 (1.000-1.030) Urine Protein Trace H (Negative) Urine Glucose (UA) Negative (Negative) Urine Ketones 1+ H (Negative) Urine Blood Negative (Negative) Urine Nitrite Positive A (Negative) Urine Bilirubin 1+ H (Negative) Urine Urobilinogen Negative (Negative) Ur Leukocyte Esterase 1+ H (Negative) Urine WBC (Auto) 10-30 H (0-5) /hpf Urine RBC (Auto) 0-4 (0-4) /hpf U Hyaline Cast (Auto) 1-5 (0-5) /lpf U Epithel Cells (Auto) >30 H (0-5) /lpf Urine Bacteria (Auto) 4+ H (Negative) ECG Data Attestation: I personally reviewed and interpreted this ECG as follows: Indication: + other (Back pain) Rate (beats per minute): 90 Rhythm: + sinus with SA ECG ST segments: no ST elevation ECG Findings: no PVCs MDM Narrative Patient presents with back pain rating down her left leg. Clinically her symptoms seem more likely to be related to a discogenic cause. Did not any focal neurologic deficits on exam but she does have some weakness in the left leg compared to the right. Straight leg raise was negative. No abdominal tenderness. Vital signs reveal no fever. Heart rate was 100. Other vital signs are unremarkable. White blood cell count was elevated at 19.8. BUN is elevated at 55. CT scan the abdomen pelvis reveals a nonspecific colitis. CT scan of the lumbar spine reveals moderate to severe DJD and facet arthritis as well as severe central canal stenosis. The patient has a urine that suggest infection. She was given IV fluids, IV Rocephin, IV morphine and IV Dilaudid for her symptoms. She will be seen by the hospitalist for further inpatient evaluation and care. She does report that she has not been eating and drinking well because of her pain and weakness. Impression & Plan Acute UTI, Sciatica, Weakness Discharge Plan Visit Data Chief Complaint: Back Injury/Pain ED Provider: Afshin Doyle Discharge Problem: Acute UTI, Sciatica, Weakness Patient Disposition: Being Evaluated by Hospitalist Forms Stand Alone Forms: [facility], Virtual Emergency Department, Important Visit Information Prescriptions Prescriptions: No Action (DME) Oxygen Home Liters Per Minute See Dose Instructions .ROUTE .MEDSUPPLY Qty: 2 RF: 0 (DME) Flutter Valve Device See Rx Instructions .ROUTE .MEDSUPPLY Qty: 1 RF: 0 spironolactone 25 mg tablet 25 mg PO BID Qty: 180 RF: 3 lisinopril 40 mg tablet 40 mg PO QAM Qty: 90 RF: 3 amlodipine 5 mg tablet 5 mg PO QAM Qty: 90 RF: 3 (DME) Compact Compressor Nebulizer misc See Rx Instructions .ROUTE .MEDSUPPLY Qty: 1 RF: 0 oxycodone 10 mg tablet 10 mg PO BID PRN (Reason: pain) Qty: 20 RF: 0 gabapentin 300 mg capsule 600 mg PO .COMPLEX RF: 0 duloxetine 60 mg capsule,delayed release(DR/EC) See Rx Instructions PO QAM Qty: 1 RF: 0 pantoprazole 40 mg tablet,delayed release (DR/EC) 40 mg PO DAILY Qty: 90 RF: 3 ipratropium-albuterol 0.5 mg-3 mg(2.5 mg base)/3 mL solution for nebulization 3 ml INH Q8H PRN (Reason: shortness of breath or wheezing) Qty: 180 RF: 5 Symbicort 160-4.5 mcg/actuation HFA aerosol inhaler 2 puff INH BID Qty: 6 RF: 5 Spiriva Respimat 2.5 mcg/actuation mist 2 puff INH QAM Qty: 4 RF: 5 albuterol sulfate 90 mcg/actuation HFA aerosol inhaler 2 puff INH Q6H PRN (Reason: Shortness Of Breath Or Wheezing) Qty: 18 RF: 3 buspirone 15 mg tablet 15 mg PO BID Qty: 60 RF: 5 xxvslapz-stmrzas-nsef-lutein Tablet 1 tab PO QAM RF: 0 cholecalciferol (vitamin D3) 50 mcg (2,000 unit) tablet 50 mcg PO QAM RF: 0 prednisone 10 mg tablet 10 mg PO DIRECTED RF: 0 Referrals Referrals: Annette Dowd MD [Primary Care Provider] -
[2020-03-31 13:25] LABS: Basophils # (auto) 0.01 K/uL (0-0.2); Basophils % (auto) 0.1 %; Eosinophils # (auto) 0.07 K/uL (0-0.5); Eosinophils % (auto) 0.4 %; Hematocrit (blood only) 46.5 % (37-47); Hemoglobin 15.9 g/dL (12.0-16.0); Immature Granulocytes # (auto) 0.06 K/uL (0.00-0.02); Immature Granulocytes % (auto) 0.3 %; Lymphocytes # (auto) 1.99 K/uL (1.2-3.4); Mean Corpuscular Hemoglobin 31.1 pg (25-34); Mean Corpuscular Hgb Conc 34.2 g/dL (32-36); Mean Platelet Volume 9.6 fL (7.4-10.4); Monocytes # (auto) 1.43 K/uL (0.11-0.59); Monocytes % (auto) 7.2 %; Neutrophils # (auto) 16.27 K/uL (1.4-6.5); Platelet Count 230 K/uL (130-400); RDW Standard Deviation 46.9 fL (36.4-46.3); Red Blood Count 5.11 M/uL (4.2-5.4); White Blood Count 19.83 K/uL (4.8-10.8)
[2020-03-31] MEDS ORDERED: HYDROmorphone INJ 1 MG/ML SYRINGE IV STA (13:44)
--- NOTE | 2020-03-31 13:50 | CT Scan Report ---
CT OF THE ABDOMEN AND PELVIS WITHOUT CONTRAST CLINICAL HISTORY: left flank/leg pain COMPARISON STUDY: CT of the abdomen November 27, 2017. TECHNIQUE: Axial images of the abdomen and pelvis were obtained without IV contrast. Images were revi ewed in the axial, sagittal, and coronal planes. Automated exposure control was utilized for the candis dy. A dose lowering technique was utilized adhering to the principles of ALARA. FINDINGS: Visualized portions of the lower chest demonstrate emphysema. This partially visualized rig ht lower lobe airspace opacity. Evaluation of the abdomen and pelvis is suboptimal on this unenhanced exam. Unenhanced images of the liver, spleen and pancreas are unremarkable. There is no biliary or p ancreatic ductal dilatation. Bilateral adrenal nodularity, greater left, is unchanged. This is benign . There is no hydronephrosis. No renal, ureteral or bladder calculi are present. There is extensive c olonic diverticulosis. Note is made of moderate wall thickening with mild pericolonic infiltration of the descending colon. There is no free air or abscess. There is no evidence for a bowel obstruction. A few prominent loops of small bowel are noted without transition point. Lumbar spine CT will be rep orted separately. Fat-containing right inguinal hernia is incidentally noted. IMPRESSION: 1. Wall thickening and pericolonic infiltration of the descending colon. Extensive colonic diverticul osis. The findings favor a nonspecific colitis. Acute diverticulitis could appear similar although is considered less likely. No free air or abscess. 2. No urinary calculi or hydronephrosis. ACT 112: Negative or not required by law. Electronically signed by: Ephraim Breaux M.D. 03/31/2020 1:48 PM
--- NOTE | 2020-03-31 13:54 | CT Scan Report ---
CT OF THE LUMBAR SPINE CLINICAL HISTORY: left back / leg pain COMPARISON STUDY: Lumbar spine MRI December 02, 2018. Lumbar spine radiographs October 06, 2018 TECHNIQUE: Helical axial images of the lumbar spine were obtained. Sagittal and coronal reconstruct ions were viewed. Automated exposure control was utilized for the study. A dose lowering technique was utilized adhering to the principles of ALARA. FINDINGS: For purposes of numbering on this exam, the L5-S1 disc space is assigned to axial image 264 of 313. Mild anterolisthesis of L4 and L5 is noted. This is similar to MRI of December 02, 2018. No acute lumbar spine fracture is noted. There is no suspicious lesion within the lumbar spine. Moderat e to severe multilevel degenerative disc disease and severe multilevel facet arthrosis within the lum bar spine is noted. Paravertebral soft tissues are unremarkable. Central canal and neural foramen are suboptimally assessed by CT. There is suspected severe central canal stenosis at L4-L5. IMPRESSION: 1. No acute lumbar spine fracture or subluxation. 2. Moderate to severe multilevel degenerative disc disease and severe multilevel facet arthrosis with in the lumbar spine. 3. Suboptimal evaluation of the central canal and neural foramen given CT technique however suspected severe central canal stenosis at L4-L5 and at least moderate central canal stenosis at L3-L4. ACT 112: Negative or not required by law. Electronically signed by: Ephraim Breaux M.D. 03/31/2020 1:53 PM
[2020-03-31 14:07] LABS: Albumin Globulin Ratio 0.7 (0.9-2); Albumin Level 2.9 gm/dl (3.4-5.0); BUN Creatinine Ratio 47.7 (10-20); Bilirubin,Total 1.7 mg/dl (0.2-1); Calcium 9.5 mg/dl (8.5-10.1); Creatinine Clr Calc Pharmacy 40.7 ml/min; Est GFR (African American) 51.9; Est GFR (Non-African American) 44.7; Total Protein 6.9 gm/dl (6.4-8.2)
[2020-03-31 14:37] LABS: Potassium 4.5 mmol/L (3.5-5.1)
[2020-03-31 15:10] LABS: Appearance Urine Clear (Clear); Bacteria Urine Automated 4+ (Negative); Blood Urine Negative (Negative); Color Urine Orange; Epithelial Cell Urine Auto >30 /lpf (0-5); Glucose Urine UA Negative (Negative); Ketones Urine 1+ (Negative); Leukocyte Esterase Urine 1+ (Negative); Nitrite Urine Positive (Negative); Protein Urine Trace (Negative); RBC Urine Automated 0-4 /hpf (0-4); Specific Gravity Urine 1.025 (1.000-1.030); Urobilinogen Urine Negative (Negative)
[2020-03-31 15:11] LABS: Bilirubin Urine 1+ (Negative)
[2020-03-31] MEDS ORDERED: cefTRIAXone SODIUM 1,000 MG/50 ML BAG IV STA (15:12)
[2020-03-31] MEDS ORDERED: SODIUM CHLORIDE 0.9% 1000ML 500 ML IV ONE (15:12)
--- NOTE | 2020-03-31 16:17 | History & Physical Report ---
Date of Service March 31, 2020 Assessment & Plan (1) Chronic back pain: Patient with long standing history of back pain and therapeutic options. - Acute on chronic pain with sciatica to knee of left leg. CT lumbar spine shows suspected severe central canal stenosis at L4-L5 and at least moderate central canal stenosis at L3-L4 -Unable to walk at home and lives alone Failed outpatient course of p.o. prednisone 10 mg twice daily along with p.o. oxycodone at home -Start methylpred 125 mg IV x1 now and then methylprednisolone 60 mg IV twice daily - Increase Gabapentin to 600 three times daily from 600/300/600mg -IV Dilaudid for uncontrolled pain - Pain goal that is tolerable for the patient is 7-10/23 - Orthopaedic consult - Continue home adjuvant therapies - PT and OT consults - Fall precautions, assist with OOB and ambulation - Patient does endorse neuropathies as chronic, but states that sensation is felt equally bilateral and responds appropriately when touched or stroked to soles of feet and lower extremities. -CK here was mildly elevated-repeat in the morning (2) Leukocytosis, unspecified: Leukocytosis attributed to outpatient steroids at this time - urine appears at this time to be contaminated and patient is asymptomatic, did get ABX dose in the EMD. Reassess in the morning. - QSOFA 0 - SIRS 0 (3) Asymptomatic bacteriuria: As above, - Hydrate patient with PO fluids, follow symptomatic (4) Hypertension: No acute needs, patient appears well controlled. Continue home medications. 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 - Continue home inhalers - Nicotene patch PRN - Oxygen 2LNC for SPO2 88-92% - Notify providers if Oxygen needs increases. (6) Anxiety and depression: Related to chronic pain and processes of chronic disease - dual benefit from adjuvant pain meds, continue. -Continue BuSpar (7) Colitis: Noted on CT scan abdomen/pelvis. She has no abdominal pain, no fever, no diarrhea. In fact, she has only moved her bowels once in the last 7 days due to opioid use and laying around in bed all day. Could be a stercoral colitis presumed secondary to constipation from such - Again does not strike me as infectious, however will symptomatically follow patient. No antibiotics indicated at this time (8) Prediabetes: Has a history of prediabetes, is not on medication Given that she will be on high-dose steroids, may need to start following glucose checks and give insulin if has hyperglycemia on morning labs (9) Current smoker: Encourage cessation Continue nicotine patch as needed (10) DVT prophylaxis: VTE: Heparin and SCD's GI prophy: Protonix while on steroids and for increase in NSAID use Abx: discontinued at this time Code: Full PIV: Continue use of lines Disposition-admit to medical/surgical floor History of Present Illness Primary Care Provider: Annette Dowd MD 79-year-old female who presents to the emergency room for worsening back pain that started 9 days ago and has involvement radiating down her left lateral leg that extends to the knee. Patient is unsure of what exacerbated the pain and denies any trauma/activity/illness. Patient has a longstanding history of chronic back pain with laminectomy and persistent L5 radiculopathies, spinal stenosis and has most recently received an epidural injection in January. Patient has a past medical history of high blood pressure/prior history of b reast malignancy/osteoporosis/abnormal cholesterol/chronic low back pain/COPD/smoker on home oxygen therapy and keratosis. The pain is more intense than the patient's normal. This is now more constant, sharp and stabbing in nature. As above the pain does radiate down her left leg and stops at the knee as and is associated with numbness and tingling. The pain is not associated with any weakness however it does limit her mobility and is associated with rest and activity but exacerbated with activity. She has been trying to crawl back and forth to the bathroom and minimize her movements. This has led to her decrease in p.o. intake of food and water and she is feeling more fatigued as well. The patient has been taking her normal outpatient medications for her pain and has been increased her amount of Advil and had a prescription for oxycodone and prednisone that was recently added ([id number]) which is not providing any benefit per the patient. Patient will be admitted for acute pain control, orthopedics consult, imaging performed in the emergency room, and will change steroids to IV. Patient did receive ceftriaxone in the emergency room for UA that is more consistent with co ntamination versus true cystitis. Add hydration and follow patient's symptoms. Allergies Allergy/AdvReac Type Severity Reaction Status Date / Time nitrofurantoin Allergy Severe SOB, Verified 03/31/20 13:10 [From Macrobid] nausea, vomiting penicillin V Allergy Unknown CAN'T Verified 03/31/20 13:10 REMEMBER REACTION atorvastatin AdvReac Intermediate muscle pain Verified 03/31/20 13:10 ciprofloxacin AdvReac Intermediate REDNESS Verified 03/31/20 13:10 ALONG VEIN simvastatin AdvReac Intermediate muscle pain Verified 03/31/20 13:10 Home Medications Medication Instructions Recorded Confirmed Type Oxygen Home #2 liter 12/22/18 02/24/20 Rx nebulizers #1 ea 02/03/19 02/24/20 Rx Flutter Valve #1 ea 04/11/19 02/24/20 Rx spironolactone 25 mg tablet 25 mg PO BID #180 tab 06/08/19 03/31/20 Rx lisinopril 40 mg tablet 40 mg PO QAM #90 tab 09/13/19 03/31/20 Rx buspirone 15 mg tablet 15 mg PO BID #60 tab 10/31/19 03/31/20 Rx cholecalciferol (vitamin D3) 50 mcg PO QAM 01/16/20 03/31/20 History oidyrieg-vbowslc-ueyy-lutein 1 tab PO QAM 01/16/20 03/31/20 History albuterol sulfate 90 mcg/actuation 2 puff INH Q6H PRN #18 gm 01/25/20 03/31/20 Rx aerosol inhaler budesonide-formoterol HFA 160 2 puff INH BID #6 gm 01/25/20 03/31/20 Rx mcg-4.5 mcg/actuation aerosol inhaler ipratropium 0.5 mg-albuterol 3 mg 3 ml INH Q8H PRN #180 ml 01/25/20 03/31/20 Rx (2.5 mg base)/3 mL nebulization soln tiotropium bromide 2.5 2 puff INH QAM #4 g 01/25/20 03/31/20 Rx mcg/actuation mist for inhalation duloxetine 60 mg capsule,delayed See Rx Instructions PO QAM #1 cap 02/24/20 03/31/20 Rx release gabapentin 300 mg capsule 600 mg PO .COMPLEX cap 02/24/20 03/31/20 History pantoprazole 40 mg tablet,delayed 40 mg PO DAILY #90 tab 02/24/20 03/31/20 Rx release amlodipine 5 mg tablet 5 mg PO QAM #90 tab 02/27/20 03/31/20 Rx oxycodone 10 mg tablet 10 mg PO BID PRN #20 tab 03/22/20 03/31/20 Rx prednisone 10 mg PO DIRECTED 03/31/20 03/31/20 History Past Med/Surg History Medical History (Updated 03/31/20 @ 21:55 by Lalita Musa MD) Anxiety Anxiety and depression Breast cancer (12/26/13) "Abnormal left breast mammogram Status post ultrasound-guided biopsies 10/06/2013 that revealed benign status post left breast excisional biopsy 12/02/2013 revealing infiltrating ductal carcinoma estrogen receptor positive, progesterone receptor positive, 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, stage pT2 Status post reexcision and sentinel lymph node biopsy 12/26/2013 pN0 (i+) Oncotype DX score of 11 Status post completion of radiation therapy 04/13/2014 received 5006 cGy utilizing hypo-fractionation Required post radiation wound care " Chronic back pain Chronic respiratory failure with hypoxia COPD (chronic obstructive pulmonary disease) Depression Dyspnea on exertion Elevated alkaline phosphatase level Facet arthritis of lumbar region Hearing decreased History of breast cancer 5 years ago - Left + surgery, no chemo Hypercholesteremia Hypertension Lesion of right [place] kidney patient is unaware Limb alert care status LUE no lab draws Multiple pulmonary nodules On home oxygen therapy 2 LPM QHS PRN > HAS DIFFICULTY WITH KEEPING ON AT HS Osteoarthritis Osteoporosis Osteoporosis PAC (premature atrial contraction) Prediabetes Pulmonary hypertension Sciatica Sleep disturbance Spinal stenosis Spinal stenosis Statin intolerance Stenosis of iliac artery Vitamin D deficiency disease Surgical History H/O lumbosacral spine surgery History of breast biopsy History of cataract surgery right and left History of colonoscopy History of D&C History of partial mastectomy of left breast History of right knee joint replacement History of tooth extraction Hx of oral surgery S/P breast lumpectomy Slow to wake up after anesthesia Family History Daughter Breast cancer Mother Aortic aneurysm Renal failure Brother Prostate cancer Aortic aneurysm Father Aortic aneurysm Pure hypercholesterolemia Hypertension Grandmother (Maternal) Colon cancer Unknown Diabetes Other No family history of adverse response to anesthesia Denies family history of Ovarian cancer Myocardial infarction Social History Smoking Status: Former smoker Tobacco Type: Cigarettes Cigarettes Per Day: 10-20; Second Hand Exposure: No; Hx Alcohol Use: No Hx Substance Use: No Preferred Language: Sami Communication Ability: Effective [employer] Electric[employer] Required: No Beliefs That Will Affect Care: None marital status: / Current Living Situation: Alone Current Living Situation Comment: Daughter living with mother temporarily. current occupational status: retired Other Information That Helps Us Care for You: No Feels Safe at Home: Yes Safety Concerns: Feels Safe At This Time Seatbelt Use: always Assistive Devices: None Review of Systems Review of Systems: REVIEW OF SYSTEMS: Constitutional: No fever, sweats or chills Eyes: No diplopia, no worsening or blurred vision ENT: normal hearing, no trouble swallowing Respiratory: No cough, sputum, dyspnea at rest or on exertion Cardiovascular: No chest pain, tightness or palpitations Abdomen: (+) Mild constipation, no pain, nausea, vomiting, diarrhea Musculoskeletal: As per HPI no, calf pain, swelling Neurologic: (+) Numbness/tingling, No weakness, or balance problems Psychiatric: (+) Depression associated with chronic pain Skin: No rash or itch Physical Exam Physical Exam: PHYSICAL EXAM: General: awake, alert, no apparent distress Head: Normocephalic, atraumatic ENT: PERRL, EOMI, no pharyngeal exudate, mucous membranes moist Neuro: AAO x 3, speech clear and appropriate, strength intact bilaterally 5/5 upper and lower extremities, sensation intact and equal all extremities, no pronator drift, normal babinski and ROM Chest: equal rise and fall of the chest, no accessory muscle use, no heaves or thirlls, Clear to auscultation, on room air, Cardiac: Regular rate and rhythm, telemetry reviewed, skin warm dry, cap refill <3 seconds, peripheral pusles +2 no JVD, no murmur, no JVD, no edema GI: NABS x 4 quadrants, soft, nontender to palpation, no rebound, guarding or tenderness : Spontaneously voiding, no pain, no CVA tenderness, Extremities: Normal inspection, no peripheral edema or erythema, calfs nontender to palpation Musculoskeletal: (+) Pain to palpation to soft tissues around lumbar and scaral area. Pain to palpation over left femoral head and tensor fasciae lateralis, gluteus medius, and pain with straight leg raise LT side > Rt. 5/5 abduction and adduction to bilateral hips and does not cause an increase in discomfort. Psych: Normal mood and affect Skin: no rash or erythema Results & Data Results & Data ([facility]) Vital Signs (Past 12 Hours) Vital Signs Temp Pulse Pulse Resp BP BP Pulse Ox 03/31/20 15:03 97 H 20 121/96 95 03/31/20 13:20 89 18 105/68 92 03/31/20 11:42 37.3 C 100 H 22 131/80 94 Laboratory Results Abnormal lab results 03/31/20 03/31/20 03/31/20 Range/Units 13:17 13:17 14:14 WBC 19.83 H (4.8-10.8) K/uL RDW Std Deviation 46.9 H (36.4-46.3) fL Neut # (Auto) 16.27 H (1.4-6.5) K/uL [place] # (Auto) 1.43 H (0.11-0.59) K/uL Immature Gran # (Auto) 0.06 H (0.00-0.02) K/uL BUN 55 H (7-18) mg/dl BUN/Creatinine Ratio 47.7 H (10-20) Total Bilirubin 1.7 H (0.2-1) mg/dl Total Creatine Kinase 332 H (26-192) U/L Albumin 2.9 L (3.4-5.0) gm/dl Albumin/Globulin Ratio 0.7 L (0.9-2) Urine Protein (Negative) Urine Ketones (Negative) Urine Nitrite (Negative) Urine Bilirubin (Negative) Ur Leukocyte Esterase (Negative) Urine WBC (Auto) (0-5) /hpf U Epithel Cells (Auto) (0-5) /lpf Urine Bacteria (Auto) (Negative) 03/31/20 Range/Units 14:55 WBC (4.8-10.8) K/uL RDW Std Deviation (36.4-46.3) fL Neut # (Auto) (1.4-6.5) K/uL [place] # (Auto) (0.11-0.59) K/uL Immature Gran # (Auto) (0.00-0.02) K/uL BUN (7-18) mg/dl BUN/Creatinine Ratio (10-20) Total Bilirubin (0.2-1) mg/dl Total Creatine Kinase (26-192) U/L Albumin (3.4-5.0) gm/dl Albumin/Globulin Ratio (0.9-2) Urine Protein Trace H (Negative) Urine Ketones 1+ H (Negative) Urine Nitrite Positive A (Negative) Urine Bilirubin 1+ H (Negative) Ur Leukocyte Esterase 1+ H (Negative) Urine WBC (Auto) 10-30 H (0-5) /hpf U Epithel Cells (Auto) >30 H (0-5) /lpf Urine Bacteria (Auto) 4+ H (Negative) Diagnostic Findings CT OF THE LUMBAR SPINE CLINICAL HISTORY: left back / leg pain COMPARISON STUDY: Lumbar spine MRI December 02, 2018. Lumbar spine radiographs October 06, 2018 TECHNIQUE: Helical axial images of the lumbar spine were obtained. Sagittal and coronal reconstructions were viewed. Automated exposure control was utilized for the study. A dose lowering technique was utilized adhering to the principles of ALARA. FINDINGS: For purposes of numbering on this exam, the L5-S1 disc space is assigned to axial image 264 of 313. Mild anterolisthesis of L4 and L5 is noted. This is similar to MRI of December 02, 2018. No acute lumbar spine fracture is noted. There is no suspicious lesion within the lumbar spine. Moderate to severe multilevel degenerative disc disease and severe multilevel facet arthrosis within the lumbar spine is noted. Paravertebral soft tissues are unremarkable. Central canal and neural foramen are suboptimally assessed by CT. There is suspected severe central canal stenosis at L4-L5. IMPRESSION: 1. No acute lumbar spine fracture or subluxation. 2. Moderate to severe multilevel degenerative disc disease and severe multilevel facet arthrosis within the lumbar spine. 3. Suboptimal evaluation of the central canal and neural foramen given CT technique however suspected severe central canal stenosis at L4-L5 and at least moderate central canal stenosis at L3-L4. CT OF THE ABDOMEN AND PELVIS WITHOUT CONTRAST CLINICAL HISTORY: left flank/leg pain COMPARISON STUDY: CT of the abdomen November 27, 2017. TECHNIQUE: Axial images of the abdomen and pelvis were obtained without IV contrast. Images were reviewed in the axial, sagittal, and coronal planes. Automated exposure control was utilized for the study. A dose lowering technique was utilized adhering to the principles of ALARA. FINDINGS: Visualized portions of the lower chest demonstrate emphysema. This partially visualized right lower lobe airspace opacity. Evaluation of the abdomen and pelvis is suboptimal on this unenhanced exam. Unenhanced images of the liver, spleen and pancreas are unremarkable. There is no biliary or pancreatic ductal dilatation. Bilateral adrenal nodularity, greater left, is unchanged. This is benign. There is no hydronephrosis. No renal, ureteral or bladder calculi are present. There is extensive colonic diverticulosis. Note is made of moderate wall thickening with mild pericolonic infiltration of the descending colon. There is no free air or abscess. There is no evidence for a bowel obstruction. A few prominent loops of small bowel are noted without transition point. Lumbar spine CT will be reported separately. Fat-containing right inguinal hernia is incidentally noted. IMPRESSION: 1. Wall thickening and pericolonic infiltration of the descending colon. Extensive colonic diverticulosis. The findings favor a nonspecific colitis. Acute diverticulitis could appear similar although is considered less likely. No free air or abscess. 2. No urinary calculi or hydronephrosis. Medications Administered Discontinued Medications Hydromorphone HCl (Hydromorphone Inj 1 Mg/Ml Syringe) 1 mg IV NOW STA Stop: 03/31/20 13:45 Last Admin: 03/31/20 14:05 Dose: 1 mg Documented by: [id number] Ceftriaxone Sodium (Rocephin) 1,000 mg in 50 mls @ 100 mls/hr IV NOW STA Stop: 03/31/20 15:41 Last Admin: 03/31/20 15:56 Dose: 100 mls/hr Documented by: [id number] Sodium Chloride (Nss 1000ml) 500 mls @ 999 mls/hr IV .Q31M ONE Stop: 03/31/20 15:42 Last Admin: 03/31/20 15:56 Dose: 999 mls/hr Documented by: [id number] Morphine Sulfate (Morphine Sulfate 4 Mg/Ml 1 Ml Carp\\Vial) 4 mg IV NOW STA Stop: 03/31/20 12:22 Last Admin: 03/31/20 13:14 Dose: 4 mg Documented by: [id number] ECG Additional Comments: Normal sinus rhythm with sinus arrhythmia Nonspecific ST abnormality Code Status & VTE Plan Code Status VTE: Heparin 5000 TID Code: Full Supervising Physician Co-Signing Physician Notes CHUCK BONER Supervision note: I have personally seen and examined the patient and discussed and verified the simmons points of the history and physical along with the plan with ELAINE Calderón with the following exceptions and/or additions: This patient is a 79-year-old female with a history noted as above, here with acute on chronic left lumbar radiculopathy for the last 6 days that has rendered her almost bedbound and having to crawl to the bathroom. She has had poor p.o. intake. She underwent an outpatient prednisone low-dose burst and oxycodone which did not help her pain. She continues to feel weak. She denies any urinary symptoms. In the ER, a CT scan of the lumbar spine as well as of the abdomen and pelvis was performed which findings as above. Urinalysis appeared abnormal but is likely contaminated although she received 1 dose of IV ceftriaxone. History and ROS reviewed as above Vitals reviewed Gen: AAOx3, NAD HEENT: Anicteric sclerae, EOMI CV: RRR no mgr nl S1S2 Pulm: CTAB no wcr Abd: +BS soft very minimal tenderness to palpation left lower quadrant without guarding or rebound tenderness, ND no masses or hernias Ext: No edema, 1+ DP pulses Skin: No rashes, warm/dry Neuro: 3/5 strength throughout left lower extremity, 5/5 strength in the right lower extremity sensation intact to the bilateral lower extremities, DTRs 1+ throughout lower extremities bilaterally This patient is a 79-year-old female with history as above, here with acute on chronic left lumbar radiculopathy, intractable pain from such, and she lives alone. She is unable to take care of herself at home due to the pain and ambulatory dysfunction. Admit for pain control, steroid burst, PT/OT evaluations, and nonurgent spine surgery evaluation. As for the suspected colitis seen on CT imaging, she does have some very mild tenderness in that area on examination, however has no fevers, her leukocytosis is attributable to her outpatient prednisone burst, and she has no diarrhea. No antibiotics indicated at this time, but advised her to let us know if her abdominal pain intensifies and certainly if she spiked a fever, would treat for diverticulitis. In the meantime, will work on bowel regimen with MiraLAX twice daily and observe for worsening. PG Care Time/CCT Total # of Minutes Spent Total Time Spent with Patient: Total time spent is greater than 50% in coordination of care (as documented) at patient's floor/unit and/or counseling patient: Coding Level of Care Code 10425 Initial Inpt Care Lvl 3 Diagnoses Chronic back pain M54.42; G89.29 Back pain laterality: bilateral Back pain location: low back pain Sciatica laterality: sciatica of left side Sciatica presence: with sciatica Leukocytosis, unspecified D72.829 Leukocytosis type: unspecified Asymptomatic bacteriuria R82.71 Hypertension I10 Hypertension type: essential hypertension COPD with emphysema J43.9 Emphysema type: unspecified Anxiety and depression F41.9; F32.9 Colitis K52.9 Prediabetes R73.03 Current smoker F17.200 DVT prophylaxis Z29.9 (1) Leukocytosis, unspecified Leukocytosis type: unspecified Qualified Code(s): D72.829 - Elevated white blood cell count, unspecified (2) COPD with emphysema Emphysema type: unspecified Qualified Code(s): J43.9 - Emphysema, unspecified (3) Chronic back pain Back pain laterality: bilateral Back pain location: low back pain Sciatica laterality: sciatica of left side Sciatica presence: with sciatica Qualified Code(s): M54.42 - Lumbago with sciatica, left side; G89.29 - Other chronic pain (4) Hypertension Hypertension type: essential hypertension Qualified Code(s): I10 - Essential (primary) hypertension
[2020-03-31] MEDS ORDERED: PANTOprazole 40 MG TAB PO SCH (17:15)
[2020-03-31] MEDS ORDERED: ONDANSETRON INJ 2 MG/ML 2 ML VIAL IV PRN (19:45)
[2020-03-31] MEDS ORDERED: MAGNESIUM HYDROXIDE SUSP 30 ML UDC PO PRN (19:45)
[2020-03-31] MEDS ORDERED: ALBUTEROL HFA 8 GM INHALER INH PRN (19:45)
[2020-03-31] MEDS ORDERED: ALBUT/IPRATROP 3MG/0.5MG NEB 3 ML VIAL INH PRN (19:45)
[2020-03-31] MEDS ORDERED: ACETAMINOPHEN 325 MG TAB PO PRN (19:45)
[2020-03-31] MEDS ORDERED: NICOTINE 7 MG/24 HR TDSY TD PRN (19:45)
[2020-03-31] MEDS ORDERED: methylPREDNISolone 125 MG/2 ML VIAL IV STA (20:01)
[2020-03-31] MEDS: HYDROmorphone INJ 0.5 MG/0.5 ML SYR IV PRN (20:16)
[2020-03-31] MEDS: POLYETHYLENE (MIRALAX) 17 GM PACK PO SCH (20:57)
[2020-03-31] MEDS: SPIRONOLACTONE 25 MG TAB PO SCH (20:57)
[2020-03-31] MEDS: busPIRone 15 MG TAB PO SCH (20:57)
[2020-03-31] MEDS: HEPARIN SOD 5,000 UNIT/0.5 ML VIAL SQ SCH (20:59)
[2020-03-31] MEDS ORDERED: GABAPENTIN 600 MG TAB PO SCH (21:00)
--- NOTE | 2020-03-31 22:43 | Electrocardiogram Report ---
Test Reason : Blood Pressure : / mmHG Vent. Rate : 091 BPM Atrial Rate : 091 BPM P-R Int : 172 ms QRS Dur : 086 ms QT Int : 356 ms P-R-T Axes : 083 080 075 degrees QTc Int : 437 ms Normal sinus rhythm with PACs Nonspecific ST abnormality Abnormal ECG When compared with ECG of 14-MAY-2019 15:53, No significant change was found Confirmed by Saeid Montemayor ([id number]) on 03/31/2020 10:42:56 PM Referred By: REFERRED SELF Confirmed By:Saeid Montemayor
[2020-04-01] MEDS: HYDROmorphone INJ 0.5 MG/0.5 ML SYR IV PRN ×3 (00:26→15:05)
[2020-04-01] MEDS: HEPARIN SOD 5,000 UNIT/0.5 ML VIAL SQ SCH ×3 (06:19→21:54)
[2020-04-01 07:15] LABS: Albumin Level 2.9 gm/dl (3.4-5.0); BUN Creatinine Ratio 41.8 (10-20); Bilirubin Direct 0.2 mg/dl (0-0.2); Calcium 9.8 mg/dl (8.5-10.1); Creatinine Clr Calc Pharmacy 44.2 ml/min; Est GFR (African American) 57.2; Est GFR (Non-African American) 49.3; Potassium 4.8 mmol/L (3.5-5.1)
[2020-04-01 07:34] LABS: Bilirubin,Total 0.9 mg/dl (0.2-1); Total Protein 7.1 gm/dl (6.4-8.2)
[2020-04-01] MEDS: methylPREDNISolone 60 MG in SYRINGE 0 ML IV SCH ×2 (07:50→20:29)
[2020-04-01] MEDS: GABAPENTIN 600 MG TAB PO SCH ×3 (09:00→20:29)
[2020-04-01] MEDS: DULoxetine HCL 30 MG CAP PO SCH (09:01)
[2020-04-01] MEDS: SPIRONOLACTONE 25 MG TAB PO SCH ×2 (09:01→20:29)
[2020-04-01] MEDS: lisinopril 40 MG TAB PO SCH (09:02)
[2020-04-01] MEDS: CHOLECALCIFEROL 1,000 UNITS 25 MCG TAB PO SCH (09:02)
[2020-04-01] MEDS: POLYETHYLENE (MIRALAX) 17 GM PACK PO SCH ×2 (09:03→20:29)
[2020-04-01] MEDS: busPIRone 15 MG TAB PO SCH ×2 (09:03→20:28)
[2020-04-01] MEDS: amLODIPine BESYLATE 5 MG TAB PO SCH (09:03)
[2020-04-01] MEDS: CEROVITE ADV FORMULA TAB PO SCH (09:03)
[2020-04-01] MEDS: UMECLIDINIUM BROMIDE 62.5MCG/BLISTER 7 PUFFS/INHALER INH SCH (09:04)
[2020-04-01] MEDS: FLUTICASONE/VILANTEROL 200/25MCG 14 PUFFS/INHALER INH SCH (09:05)
[2020-04-01] MEDS: PANTOprazole 40 MG TAB PO SCH (09:06)
--- NOTE | 2020-04-01 11:54 | Hospitalist Progress Note ---
Date of Service April 01, 2020 Assessment & Plan (1) Chronic back pain: Patient with long standing history of back pain and therapeutic options. - Acute on chronic pain with sciatica to knee of left leg. CT lumbar spine shows suspected severe central canal stenosis at L4-L5 and at least moderate central canal stenosis at L3-L4 -Unable to walk at home and lives alone Failed outpatient course of p.o. prednisone 10 mg twice daily along with p.o. oxycodone at home -methylprednisolone 60 mg IV twice daily - Increased Gabapentin to 600 three times daily from 600/300/600mg -IV Dilaudid for uncontrolled pain - Pain goal that is tolerable for the patient is 7-10/23 - Orthopaedic consult - Continue home adjuvant therapies - PT and OT consults - Fall precautions, assist with OOB and ambulation - Patient does endorse neuropathies as chronic, but states that sensation is felt equally bilateral and responds appropriately when touched or stroked to soles of feet and lower extremities. -Given that patient is weak, may require PT/OT vs surgery. Will await input from Ortho. Dispo may be an issue if unable to discharge home and family is in [place]. (2) Leukocytosis, unspecified: Leukocytosis attributed to outpatient steroids at this time - urine appears at this time to be contaminated and patient is asymptomatic, did get ABX dose in the EMD. Reassess in the morning. - QSOFA 0 - SIRS 0 (3) Asymptomatic bacteriuria: As above, - Hydrate patient with PO fluids, follow symptomatic (4) Hypertension: No acute needs, patient appears well controlled. Continue home medications. 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 - Continue home inhalers - Nicotene patch PRN - Oxygen 2LNC for SPO2 88-92% - Notify providers if Oxygen needs increases. (6) Anxiety and depression: Related to chronic pain and processes of chronic disease - dual benefit from adjuvant pain meds, continue. -Continue BuSpar (7) Colitis: Noted on CT scan abdomen/pelvis. She has no abdominal pain, no fever, no diarrhea. In fact, she has only moved her bowels once in the last 7 days due to opioid use and laying around in bed all day. Could be a stercoral colitis presumed secondary to constipation from such - Again does not strike me as infectious, however will symptomatically follow patient. No antibiotics indicated at this time (8) Prediabetes: Has a history of prediabetes, is not on medication Given that she will be on high-dose steroids, may need to start following glucose checks and give insulin if has hyperglycemia on morning labs (9) Current smoker: Encourage cessation Continue nicotine patch as needed (10) DVT prophylaxis: VTE: Heparin and SCD's GI prophy: Protonix while on steroids and for increase in NSAID use Abx: discontinued at this time Code: Full Admission and Anticipated Discharge Date Admission Date: March 31, 2020 Subjective This is a pleasant 79 yo female who reports that she has pain and weakness of her left knee. She reports the pain is mainly located in the lateral portion of her knee. She reports she was walking with her firedn and noticed wekaness in that knee, and she could not flex it. Today she continues to report weakness. She reports she has spoken to Dr Guaman in the past and had postponed surgery before. She reports that she would feel more comfortable going to [place] as she has more family support. Review of Systems Review of Systems: All systems reviewed & are unremarkable except as noted in HPI & below Physical Exam Physical Exam: General: awake, alert, no apparent distress Head: Normocephalic, atraumatic ENT: PERRL, EOMI, no pharyngeal exudate, mucous membranes moist Neuro: AAO x 3, speech clear and appropriate, strength intact bilaterally 5/5 upper and lower extremities, sensation intact and equal all extremities, no pronator drift, normal babinski and ROM Chest: equal rise and fall of the chest, no accessory muscle use, no heaves or thirlls, Clear to auscultation, on room air, Cardiac: Regular rate and rhythm, telemetry reviewed, skin warm dry, cap refill <3 seconds, peripheral pusles +2 no JVD, no murmur, no JVD, no edema GI: NABS x 4 quadrants, soft, nontender to palpation, no rebound, guarding or tenderness : Spontaneously voiding, no pain, no CVA tenderness, Extremities: Normal inspection, no peripheral edema or erythema, calfs nontender to palpation Musculoskeletal: (+) Pain to palpation to soft tissues around lumbar and sacral area. Pain to palpation over left femoral headand course of IT band. Patient unable to flex knee, normal passive flexion of left knee. negative log roll. Psych: Normal mood and affect Skin: no rash or erythema Results & Data Results & Data ([facility]) Vital Signs (Past 12 Hours) Vital Signs Temp Pulse Resp BP Pulse Ox 04/01/20 07:31 36.5 C 81 16 146/81 H 93 PG Care Time/CCT Total # of Minutes Spent Total Time Spent with Patient: Total time spent is greater than 50% in coordination of care (as documented) at patient's floor/unit and/or counseling patient: Coding Level of Care Code 04023 Subseq Hosp Care Lvl 3 Diagnoses Chronic back pain M54.42; G89.29 Back pain laterality: bilateral Back pain location: low back pain Sciatica laterality: sciatica of left side Sciatica presence: with sciatica Leukocytosis, unspecified D72.829 Leukocytosis type: unspecified Asymptomatic bacteriuria R82.71 Hypertension I10 Hypertension type: essential hypertension COPD with emphysema J43.9 Emphysema type: unspecified Anxiety and depression F41.9; F32.9 Colitis K52.9 Prediabetes R73.03 Current smoker F17.200 DVT prophylaxis Z29.9 Time Spent (min) 35 (1) Leukocytosis, unspecified Leukocytosis type: unspecified Qualified Code(s): D72.829 - Elevated white blood cell count, unspecified (2) COPD with emphysema Emphysema type: unspecified Qualified Code(s): J43.9 - Emphysema, unspecified (3) Chronic back pain Back pain laterality: bilateral Back pain location: low back pain Sciatica laterality: sciatica of left side Sciatica presence: with sciatica Qualified Code(s): M54.42 - Lumbago with sciatica, left side; G89.29 - Other chronic pain (4) Hypertension Hypertension type: essential hypertension Qualified Code(s): I10 - Essential (primary) hypertension
[2020-04-02] MEDS: HYDROmorphone INJ 0.5 MG/0.5 ML SYR IV PRN (01:14)
[2020-04-02] MEDS: HEPARIN SOD 5,000 UNIT/0.5 ML VIAL SQ SCH ×3 (05:41→22:23)
[2020-04-02 07:49] LABS: Hematocrit (blood only) 40.7 % (37-47); Hemoglobin 14.4 g/dL (12.0-16.0); Mean Corpuscular Hemoglobin 31.6 pg (25-34); Mean Corpuscular Hgb Conc 35.4 g/dL (32-36); Mean Corpuscular Volume 89.5 fL (80-100); Mean Platelet Volume 9.9 fL (7.4-10.4); Platelet Count 224 K/uL (130-400); RDW Coefficient of Variation 13.7 % (11.5-14.5); RDW Standard Deviation 45.1 fL (36.4-46.3); Red Blood Count 4.55 M/uL (4.2-5.4); White Blood Count 15.93 K/uL (4.8-10.8)
[2020-04-02] MEDS: methylPREDNISolone 60 MG in SYRINGE 0 ML IV SCH ×2 (08:02→20:17)
[2020-04-02] MEDS: CHOLECALCIFEROL 1,000 UNITS 25 MCG TAB PO SCH (08:03)
[2020-04-02] MEDS: SPIRONOLACTONE 25 MG TAB PO SCH ×2 (08:04→20:17)
[2020-04-02] MEDS: CEROVITE ADV FORMULA TAB PO SCH (08:04)
[2020-04-02] MEDS: lisinopril 40 MG TAB PO SCH (08:04)
[2020-04-02] MEDS: PANTOprazole 40 MG TAB PO SCH ×2 (08:04→08:08)
[2020-04-02] MEDS: POLYETHYLENE (MIRALAX) 17 GM PACK PO SCH ×2 (08:05→20:17)
[2020-04-02] MEDS: GABAPENTIN 600 MG TAB PO SCH ×3 (08:05→20:17)
[2020-04-02] MEDS: busPIRone 15 MG TAB PO SCH ×2 (08:05→20:17)
[2020-04-02] MEDS: DULoxetine HCL 30 MG CAP PO SCH (08:05)
[2020-04-02] MEDS: FLUTICASONE/VILANTEROL 200/25MCG 14 PUFFS/INHALER INH SCH (08:06)
[2020-04-02] MEDS: UMECLIDINIUM BROMIDE 62.5MCG/BLISTER 7 PUFFS/INHALER INH SCH (08:06)
[2020-04-02] MEDS: amLODIPine BESYLATE 5 MG TAB PO SCH (08:06)
[2020-04-02 08:25] LABS: BUN Creatinine Ratio 34.9 (10-20); Creatinine Clr Calc Pharmacy 47.3 ml/min; Est GFR (African American) 62.1; Est GFR (Non-African American) 53.5; Potassium 4.4 mmol/L (3.5-5.1)
--- NOTE | 2020-04-02 11:23 | Magnetic Resonance Report ---
MR lumbar spine wo con CLINICAL HISTORY: Back pain with right leg radiculopathy TECHNIQUE: Sagittal and axial T1, T2 and STIR images were obtained. COMPARISON STUDY: MRI dated 12/02/2018, CT scan dated 03/31/2020 OBSERVATIONS: There is L4-5 endplate marrow edema, likely discogenic degenerative basis. L1-2: There is a circumferential disc bulge and mild spinal stenosis. There is mild right-sided hope inal narrowing. L2-3: There is a circumferential disc bulge and mild spinal stenosis. There is mild bilateral foramin al narrowing. L3-4: There is a circumferential disc bulge and mild to moderate spinal stenosis. There is facet join t arthropathy with mild secondary deformity of the left lateral aspect of the thecal sac. There is se nimisha left-sided foraminal narrowing. L4-5: There is a grade 1 spondylolisthesis of L4 on L5. There are postsurgical changes of a presumed prior right posterior hemilaminectomy. There is moderate spinal stenosis. There is facet joint arthro davion. There is severe bilateral foraminal narrowing. L5-S1: Disc is desiccated. There is facet joint arthropathy. There is no significant spinal stenosis. There is moderate bilateral foraminal narrowing. The conus medullaris and cauda equina appear normal. IMPRESSION: 1. Moderately advanced multilevel spondylytic changes 2. Mild spinal stenosis at the L1-2 level, mild spinal stenosis at the L2-3 level, mild to moderate s jocelin stenosis at the L3-4 level, and moderate spinal stenosis at the L4-5 level. 3. Multilevel foraminal stenosis. ACT 112: Negative or not required by law. Electronically signed by: Zi Mcleod M.D. 04/02/2020 11:21 AM
--- NOTE | 2020-04-02 12:07 | Orthopedic Consultation ---
Date of Consultation April 02, 2020 Assessment & Plan (1) Lumbar disc herniation with radiculopathy: Patient obtained an updated MRI today. I be able to review it personally. Demonstrate severe multilevel spinal stenosis evidence of laminotomy defect L4- 5 and L5-S1 on the right. There is evidence of marked vacuum phenomenon and stability tickly at L4-5. Appreciate significant central lateral recess disease at L3-4 and L4-5 with facet hypertrophy at L5-S1. There is evidence of a far lateral disc herniation with severe neuroforaminal stenosis at L3-4 on the left accounting for her quadricep deficit. I reviewed these findings in detail with the patient. We discussed treatment options. She is considering surgery. If she were to stay at our institution I would recommend a lumbar decompression and fusion at L3-4, L4-5 and L5-S1. Risk benefits pros cons and alternatives were outlined in detail. At this time the patient will confer with her family and decide which path she would like to pursue. If she does opt for surgery at our institution to recommend to be done on an urgent basis. Present on Admission?: Yes History of Present Illness Reason for Consultation: Left leg pain and weakness Attending Physician: Avtar Rouse History of Present Illness This is a very pleasant 79-year-old female presents to emergency room this weekend with marked line status prickly affecting left lower extremity. Today she describes symptoms involving the left buttock extending down the thigh anteriorly to the left knee. There is no symptoms below the knee. She states the symptoms have progressed and she notes progressive weakness affecting the left quadricep. Prior to this occurrence she has had a history of back surgery in the past which appears to be laminectomies at L 4 5 L5-S1 on the right. She is undergone 3 epidural injections in the past for underlying spinal stenosis. Her pain is quite intolerable and she is unable to ambulate at this time. She denies any loss of bowel bladder function. Allergies Allergy/AdvReac Type Severity Reaction Status Date / Time nitrofurantoin Allergy Severe SOB, Verified 03/31/20 13:10 [From Macrobid] nausea, vomiting penicillin V Allergy Unknown CAN'T Verified 03/31/20 13:10 REMEMBER REACTION atorvastatin AdvReac Intermediate muscle pain Verified 03/31/20 13:10 ciprofloxacin AdvReac Intermediate REDNESS Verified 03/31/20 13:10 ALONG VEIN simvastatin AdvReac Intermediate muscle pain Verified 03/31/20 13:10 Home Medications Medication Instructions Recorded Confirmed Type Oxygen Home #2 liter 12/22/18 02/24/20 Rx nebulizers #1 ea 02/03/19 02/24/20 Rx Flutter Valve #1 ea 04/11/19 02/24/20 Rx spironolactone 25 mg tablet 25 mg PO BID #180 tab 06/08/19 03/31/20 Rx lisinopril 40 mg tablet 40 mg PO QAM #90 tab 09/13/19 03/31/20 Rx buspirone 15 mg tablet 15 mg PO BID #60 tab 10/31/19 03/31/20 Rx cholecalciferol (vitamin D3) 50 mcg PO QAM 01/16/20 03/31/20 History ylmzvjeg-wwkcyvq-ouij-lutein 1 tab PO QAM 01/16/20 03/31/20 History albuterol sulfate 90 mcg/actuation 2 puff INH Q6H PRN #18 gm 01/25/20 03/31/20 Rx aerosol inhaler budesonide-formoterol HFA 160 2 puff INH BID #6 gm 01/25/20 03/31/20 Rx mcg-4.5 mcg/actuation aerosol inhaler ipratropium 0.5 mg-albuterol 3 mg 3 ml INH Q8H PRN #180 ml 01/25/20 03/31/20 Rx (2.5 mg base)/3 mL nebulization soln tiotropium bromide 2.5 2 puff INH QAM #4 g 01/25/20 03/31/20 Rx mcg/actuation mist for inhalation duloxetine 60 mg capsule,delayed See Rx Instructions PO QAM #1 cap 02/24/20 03/31/20 Rx release gabapentin 300 mg capsule 600 mg PO .COMPLEX cap 02/24/20 03/31/20 History pantoprazole 40 mg tablet,delayed 40 mg PO DAILY #90 tab 02/24/20 03/31/20 Rx release amlodipine 5 mg tablet 5 mg PO QAM #90 tab 02/27/20 03/31/20 Rx oxycodone 10 mg tablet 10 mg PO BID PRN #20 tab 03/22/20 03/31/20 Rx prednisone 10 mg PO DIRECTED 03/31/20 03/31/20 History Patient History Medical History (Updated 04/02/20 @ 12:05 by Jose Guaman DO) Anxiety Anxiety and depression Breast cancer (12/26/13) "Abnormal left breast mammogram Status post ultrasound-guided biopsies 10/06/2013 that revealed benign status post left breast excisional biopsy 12/02/2013 revealing infiltrating ductal carcinoma estrogen receptor positive, progesterone receptor positive, 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, stage pT2 Status post reexcision and sentinel lymph node biopsy 12/26/2013 pN0 (i+) Oncotype DX score of 11 Status post completion of radiation therapy 04/13/2014 received 5006 cGy utilizing hypo-fractionation Required post radiation wound care " Chronic back pain Chronic respiratory failure with hypoxia COPD (chronic obstructive pulmonary disease) Depression Dyspnea on exertion Elevated alkaline phosphatase level Facet arthritis of lumbar region Hearing decreased History of breast cancer 5 years ago - Left + surgery, no chemo Hypercholesteremia Hypertension Lesion of right [place] kidney patient is unaware Limb alert care status LUE no lab draws Multiple pulmonary nodules On home oxygen therapy 2 LPM QHS PRN > HAS DIFFICULTY WITH KEEPING ON AT HS Osteoarthritis Osteoporosis Osteoporosis PAC (premature atrial contraction) Prediabetes Pulmonary hypertension Sciatica Sleep disturbance Spinal stenosis Spinal stenosis Statin intolerance Stenosis of iliac artery Vitamin D deficiency disease Surgical History H/O lumbosacral spine surgery History of breast biopsy History of cataract surgery right and left History of colonoscopy History of D&C History of partial mastectomy of left breast History of right knee joint replacement History of tooth extraction Hx of oral surgery S/P breast lumpectomy Slow to wake up after anesthesia Family History Daughter Breast cancer Mother Aortic aneurysm Renal failure Brother Prostate cancer Aortic aneurysm Father Aortic aneurysm Pure hypercholesterolemia Hypertension Grandmother (Maternal) Colon cancer Unknown Diabetes Other No family history of adverse response to anesthesia Denies family history of Ovarian cancer Myocardial infarction Social History Smoking Status: Former smoker Tobacco Type: Cigarettes Cigarettes Per Day: 10-20; Second Hand Exposure: No; Hx Alcohol Use: No Hx Substance Use: No Preferred Language: Luxembourgish Communication Ability: Effective Product Support Consultant Required: No Beliefs That Will Affect Care: None marital status: / Current Living Situation: Alone Current Living Situation Comment: Daughter living with mother temporarily. current occupational status: retired Other Information That Helps Us Care for You: No Feels Safe at Home: Yes Safety Concerns: Feels Safe At This Time Seatbelt Use: always Assistive Devices: Glasses and Walker Physical Exam Physical Exam: None exam patient is sitting up at the side of the bed. She exhibits reasonable plantar flexion dorsiflexion extensor hallucis longus bilaterally she has a 5/5 right quadricep compared to a complete deficit of the left quadricep of her 2/5. She is in obvious distress. Results & Data ([facility]) Vital Signs (Past 12 Hours) Vital Signs Temp Pulse Resp BP Pulse Ox 04/02/20 07:09 36.5 C 73 16 128/79 92
--- NOTE | 2020-04-02 20:57 | Hospitalist Progress Note ---
Date of Service April 02, 2020 Assessment & Plan (1) Chronic back pain: Patient with long standing history of back pain and therapeutic options. - Acute on chronic pain with sciatica to knee of left leg. CT lumbar spine shows suspected severe central canal stenosis at L4-L5 and at least moderate central canal stenosis at L3-L4 -Unable to walk at home and lives alone Failed outpatient course of p.o. prednisone 10 mg twice daily along with p.o. oxycodone at home -methylprednisolone 60 mg IV twice daily - Increased Gabapentin to 600 three times daily from 600/300/600mg -IV Dilaudid for uncontrolled pain - Pain goal that is tolerable for the patient is 7-10/23 - Orthopaedic consult - Continue home adjuvant therapies - PT and OT consults - Fall precautions, assist with OOB and ambulation - Patient does endorse neuropathies as chronic, but states that sensation is felt equally bilateral and responds appropriately when touched or stroked to soles of feet and lower extremities. -Given that patient is weak, patient likely will require surgery.. Appreciate input from Ortho. Patient is contemplating if she would like surgery here, she is leaning towards this option. (2) Leukocytosis, unspecified: Leukocytosis attributed to outpatient steroids at this time - urine appears at this time to be contaminated and patient is asymptomatic, did get ABX dose in the EMD. Reassess in the morning. - QSOFA 0 - SIRS 0 (3) Asymptomatic bacteriuria: As above, - Hydrate patient with PO fluids, follow symptomatic (4) Hypertension: No acute needs, patient appears well controlled. Continue home medications. 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 - Continue home inhalers - Nicotene patch PRN - Oxygen 2LNC for SPO2 88-92% - Notify providers if Oxygen needs increases. (6) Anxiety and depression: Related to chronic pain and processes of chronic disease - dual benefit from adjuvant pain meds, continue. -Continue BuSpar (7) Colitis: Noted on CT scan abdomen/pelvis. She has no abdominal pain, no fever, no diarrhea. In fact, she has only moved her bowels once in the last 7 days due to opioid use and laying around in bed all day. Could be a stercoral colitis presumed secondary to constipation from such - Again does not strike me as infectious, however will symptomatically follow patient. No antibiotics indicated at this time (8) Prediabetes: Has a history of prediabetes, is not on medication Given that she will be on high-dose steroids, may need to start following glucose checks and give insulin if has hyperglycemia on morning labs (9) Current smoker: Encourage cessation Continue nicotine patch as needed (10) DVT prophylaxis: VTE: Heparin and SCD's GI prophy: Protonix while on steroids and for increase in NSAID use Abx: discontinued at this time Code: Full Admission and Anticipated Discharge Date Admission Date: March 31, 2020 Subjective Patient reports no new symptoms. She is contemplating having surgery here. She is leaning towards this option. Review of Systems Review of Systems: All systems reviewed & are unremarkable except as noted in HPI & below Physical Exam Physical Exam: General: awake, alert, no apparent distress Head: Normocephalic, atraumatic ENT: PERRL, EOMI, no pharyngeal exudate, mucous membranes moist Neuro: AAO x 3, speech clear and appropriate, strength intact bilaterally 5/5 upper and lower extremities, sensation intact and equal all extremities, no pronator drift, normal babinski and ROM Chest: equal rise and fall of the chest, no accessory muscle use, no heaves or thirlls, Clear to auscultation, on room air, Cardiac: Regular rate and rhythm, telemetry reviewed, skin warm dry, cap refill <3 seconds, peripheral pusles +2 no JVD, no murmur, no JVD, no edema GI: NABS x 4 quadrants, soft, nontender to palpation, no rebound, guarding or tenderness : Spontaneously voiding, no pain, no CVA tenderness, Extremities: Normal inspection, no peripheral edema or erythema, calfs nontender to palpation Musculoskeletal: (+) Pain to palpation to soft tissues around lumbar and sacral area. Pain to palpation over left femoral headand course of IT band. Patient unable to flex knee, normal passive flexion of left knee. negative log roll. Psych: Normal mood and affect Skin: no rash or erythema Results & Data Results & Data ([facility]) Vital Signs (Past 12 Hours) Vital Signs Temp Pulse Resp BP Pulse Ox 04/02/20 15:40 36.6 C 89 18 121/74 94 PG Care Time/CCT Total # of Minutes Spent Total Time Spent with Patient: Total time spent is greater than 50% in coordination of care (as documented) at patient's floor/unit and/or counseling patient: Coding Level of Care Code 01369 Subseq Hosp Care Lvl 3 Diagnoses Chronic back pain M54.42; G89.29 Back pain laterality: bilateral Back pain location: low back pain Sciatica laterality: sciatica of left side Sciatica presence: with sciatica Leukocytosis, unspecified D72.829 Leukocytosis type: unspecified Asymptomatic bacteriuria R82.71 Hypertension I10 Hypertension type: essential hypertension COPD with emphysema J43.9 Emphysema type: unspecified Anxiety and depression F41.9; F32.9 Colitis K52.9 Prediabetes R73.03 Current smoker F17.200 DVT prophylaxis Z29.9 Time Spent (min) 35 (1) Leukocytosis, unspecified Leukocytosis type: unspecified Qualified Code(s): D72.829 - Elevated white blood cell count, unspecified (2) COPD with emphysema Emphysema type: unspecified Qualified Code(s): J43.9 - Emphysema, unspecified (3) Chronic back pain Back pain laterality: bilateral Back pain location: low back pain Sciatica laterality: sciatica of left side Sciatica presence: with sciatica Qualified Code(s): M54.42 - Lumbago with sciatica, left side; G89.29 - Other chronic pain (4) Hypertension Hypertension type: essential hypertension Qualified Code(s): I10 - Essential (primary) hypertension
[2020-04-03] MEDS: HEPARIN SOD 5,000 UNIT/0.5 ML VIAL SQ SCH ×4 (05:13→21:42)
[2020-04-03 06:07] LABS: Hematocrit (blood only) 41.7 % (37-47); Hemoglobin 14.2 g/dL (12.0-16.0); Mean Corpuscular Hemoglobin 30.7 pg (25-34); Mean Corpuscular Hgb Conc 34.1 g/dL (32-36); Mean Corpuscular Volume 90.1 fL (80-100); Mean Platelet Volume 9.9 fL (7.4-10.4); Platelet Count 249 K/uL (130-400); RDW Coefficient of Variation 13.6 % (11.5-14.5); RDW Standard Deviation 44.9 fL (36.4-46.3); Red Blood Count 4.63 M/uL (4.2-5.4); White Blood Count 14.98 K/uL (4.8-10.8)
[2020-04-03 06:36] LABS: Calcium 9.6 mg/dl (8.5-10.1); Creatinine Clr Calc Pharmacy 48.2 ml/min; Est GFR (African American) 63.6; Est GFR (Non-African American) 54.9; Potassium 4.5 mmol/L (3.5-5.1)
--- NOTE | 2020-04-03 08:14 | Orthopedic Progress Note ---
Date of Service April 03, 2020 Assessment & Plan (1) Lumbar disc herniation with radiculopathy: Admission and Anticipated Discharge Date Admission Date: March 31, 2020 In light of the patient's progressive neurologic deficit I am recommending emergent decompression fusion. It would require complete discectomy and stabilization at the L3 445 and 5 1 levels in light of her underlying instability and neural compression. Risk benefits pros cons are again outlined in detail. I have also had discussion with her sister this morning. We will try to have surgery performed as soon as possible in light of her decline. Subjective Patient was seen again this morning. She notes more pronounced leg pain with significant weakness. She is unable to ambulate. Physical Exam Physical Exam: On exam she is in obvious distress. She has almost complete absence of her left quadricep. She is in significant discomfort and is unable to stand. Results & Data ([facility]) Vital Signs (Past 12 Hours) Vital Signs Temp Pulse Resp BP Pulse Ox 04/03/20 07:13 36.7 C 66 16 119/73 92 04/02/20 23:06 36.8 C 82 17 116/78 94
[2020-04-03] MEDS: methylPREDNISolone 60 MG in SYRINGE 0 ML IV SCH ×2 (08:17→21:18)
[2020-04-03] MEDS: busPIRone 15 MG TAB PO SCH ×3 (10:08→21:17)
[2020-04-03] MEDS: DULoxetine HCL 30 MG CAP PO SCH ×2 (10:08→14:11)
[2020-04-03] MEDS: SPIRONOLACTONE 25 MG TAB PO SCH ×3 (10:08→21:18)
[2020-04-03] MEDS: FLUTICASONE/VILANTEROL 200/25MCG 14 PUFFS/INHALER INH SCH ×2 (10:08→14:10)
[2020-04-03] MEDS: GABAPENTIN 600 MG TAB PO SCH ×3 (10:09→21:17)
[2020-04-03] MEDS: UMECLIDINIUM BROMIDE 62.5MCG/BLISTER 7 PUFFS/INHALER INH SCH ×2 (10:09→14:11)
[2020-04-03] MEDS: PANTOprazole 40 MG TAB PO SCH ×2 (10:09→14:08)
[2020-04-03] MEDS: lisinopril 40 MG TAB PO SCH ×2 (10:09→14:08)
[2020-04-03] MEDS: CHOLECALCIFEROL 1,000 UNITS 25 MCG TAB PO SCH ×2 (10:09→14:11)
[2020-04-03] MEDS: POLYETHYLENE (MIRALAX) 17 GM PACK PO SCH ×3 (10:09→21:41)
[2020-04-03] MEDS: CEROVITE ADV FORMULA TAB PO SCH ×2 (10:09→14:09)
[2020-04-03] MEDS: amLODIPine BESYLATE 5 MG TAB PO SCH ×2 (10:09→14:08)
[2020-04-03] MEDS: HYDROmorphone INJ 0.5 MG/0.5 ML SYR IV PRN ×2 (13:13→21:18)
--- NOTE | 2020-04-03 21:42 | Hospitalist Progress Note ---
Date of Service April 03, 2020 Assessment & Plan (1) Chronic back pain: Patient with long standing history of back pain and therapeutic options. - Acute on chronic pain with sciatica to knee of left leg. CT lumbar spine shows suspected severe central canal stenosis at L4-L5 and at least moderate central canal stenosis at L3-L4 -Unable to walk at home and lives alone Failed outpatient course of p.o. prednisone 10 mg twice daily along with p.o. oxycodone at home -methylprednisolone 60 mg IV twice daily - Increased Gabapentin to 600 three times daily from 600/300/600mg -IV Dilaudid for uncontrolled pain - Pain goal that is tolerable for the patient is 7-8 - Orthopaedic consult - Continue home adjuvant therapies - PT and OT consults - Fall precautions, assist with OOB and ambulation - Patient does endorse neuropathies as chronic, but states that sensation is felt equally bilateral and responds appropriately when touched or stroked to soles of feet and lower extremities. -Patient is now agreeable to surgical procedure. -Patient is intermediate risk for intermediate risk procedure. No further work up is required. Appreciate input from Ortho. (2) Leukocytosis, unspecified: Leukocytosis attributed to outpatient steroids at this time - urine appears at this time to be contaminated and patient is asymptomatic, did get ABX dose in the EMD. Reassess in the morning. - QSOFA 0 - SIRS 0 (3) Asymptomatic bacteriuria: As above, - Hydrate patient with PO fluids, follow symptomatic (4) Hypertension: No acute needs, patient appears well controlled. Continue home medications. 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 - Continue home inhalers - Nicotene patch PRN - Oxygen 2LNC for SPO2 88-92% - Notify providers if Oxygen needs increases. (6) Anxiety and depression: Related to chronic pain and processes of chronic disease - dual benefit from adjuvant pain meds, continue. -Continue BuSpar (7) Colitis: Noted on CT scan abdomen/pelvis. She has no abdominal pain, no fever, no diarrhea. In fact, she has only moved her bowels once in the last 7 days due to opioid use and laying around in bed all day. Could be a stercoral colitis presumed secondary to constipation from such - Again does not strike me as infectious, however will symptomatically follow patient. No antibiotics indicated at this time (8) Prediabetes: Has a history of prediabetes, is not on medication Given that she will be on high-dose steroids, may need to start following glucose checks and give insulin if has hyperglycemia on morning labs (9) Current smoker: Encourage cessation Continue nicotine patch as needed (10) DVT prophylaxis: VTE: Heparin and SCD's GI prophy: Protonix while on steroids and for increase in NSAID use Abx: discontinued at this time Code: Full Admission and Anticipated Discharge Date Admission Date: March 31, 2020 Subjective Patient is agreeable to having surgery. She denies any new symptoms today. Review of Systems Review of Systems: All systems reviewed & are unremarkable except as noted in HPI & below Physical Exam Physical Exam: General: awake, alert, no apparent distress Head: Normocephalic, atraumatic ENT: PERRL, EOMI, no pharyngeal exudate, mucous membranes moist Neuro: AAO x 3, speech clear and appropriate, strength intact bilaterally 5/5 upper and lower extremities, sensation intact and equal all extremities, no pronator drift, normal babinski and ROM Chest: equal rise and fall of the chest, no accessory muscle use, no heaves or thirlls, Clear to auscultation, on room air, Cardiac: Regular rate and rhythm, telemetry reviewed, skin warm dry, cap refill <3 seconds, peripheral pusles +2 no JVD, no murmur, no JVD, no edema GI: NABS x 4 quadrants, soft, nontender to palpation, no rebound, guarding or tenderness : Spontaneously voiding, no pain, no CVA tenderness, Extremities: Normal inspection, no peripheral edema or erythema, calfs nontender to palpation Musculoskeletal: (+) Pain to palpation to soft tissues around lumbar and sacral area. Pain to palpation over left femoral headand course of IT band. Patient unable to flex knee, normal passive flexion of left knee. negative log roll. Psych: Normal mood and affect Skin: no rash or erythema Results & Data Results & Data ([facility]) Vital Signs (Past 12 Hours) Vital Signs Temp Pulse Resp BP Pulse Ox 04/03/20 15:41 36.6 C 80 18 135/80 95 PG Care Time/CCT Total # of Minutes Spent Total Time Spent with Patient: Total time spent is greater than 50% in coordination of care (as documented) at patient's floor/unit and/or counseling patient: Coding Level of Care Code 82546 Subseq Hosp Care Lvl 2 Diagnoses Chronic back pain M54.42; G89.29 Back pain laterality: bilateral Back pain location: low back pain Sciatica laterality: sciatica of left side Sciatica presence: with sciatica Leukocytosis, unspecified D72.829 Leukocytosis type: unspecified Asymptomatic bacteriuria R82.71 Hypertension I10 Hypertension type: essential hypertension COPD with emphysema J43.9 Emphysema type: unspecified Anxiety and depression F41.9; F32.9 Colitis K52.9 Prediabetes R73.03 Current smoker F17.200 DVT prophylaxis Z29.9 Time Spent (min) 25 (1) Leukocytosis, unspecified Leukocytosis type: unspecified Qualified Code(s): D72.829 - Elevated white blood cell count, unspecified (2) COPD with emphysema Emphysema type: unspecified Qualified Code(s): J43.9 - Emphysema, unspecified (3) Chronic back pain Back pain laterality: bilateral Back pain location: low back pain Sciatica laterality: sciatica of left side Sciatica presence: with sciatica Qualified Code(s): M54.42 - Lumbago with sciatica, left side; G89.29 - Other chronic pain (4) Hypertension Hypertension type: essential hypertension Qualified Code(s): I10 - Essential (primary) hypertension
[2020-04-04] MEDS: HEPARIN SOD 5,000 UNIT/0.5 ML VIAL SQ SCH ×3 (03:16→22:19)
[2020-04-04] MEDS: HYDROmorphone INJ 0.5 MG/0.5 ML SYR IV PRN ×2 (08:16→20:39)
--- NOTE | 2020-04-04 08:50 | Orthopedic Progress Note ---
Date of Service April 04, 2020 Assessment & Plan (1) Lumbar disc herniation with radiculopathy: Admission and Anticipated Discharge Date Admission Date: March 31, 2020 Patient has experienced profound radiculopathy with progressive neuro deficit. She now has advanced weakness well over 48 hours in nature. She is at very high risk for permanent quad deficit and inability to ambulate without an assisting device. I am recommending emergent decompression in hopes to salvage what is left of her L3 nerve function. Subjective Back and left leg pain continued with severe weakness and inability to ambulate Physical Exam Physical Exam: Patient is obvious distress. She exhibits 2/5 left quadriceps compared to 5/5 on the right. Results & Data ([facility]) Vital Signs (Past 12 Hours) Vital Signs Temp Pulse Resp BP Pulse Ox 04/04/20 07:22 36.7 C 100 H 18 142/81 H 93 04/03/20 22:42 36.4 C L 66 14 115/69 92
[2020-04-04] MEDS ORDERED: CLINDAMYCIN 600 MG/54 ML BAG IV SCH (09:00)
[2020-04-04] MEDS ORDERED: HYDROmorphone INJ 0.5 MG/0.5 ML SYR IV STA (10:06)
[2020-04-04] MEDS: methylPREDNISolone 60 MG in SYRINGE 0 ML IV SCH ×2 (10:19→20:21)
[2020-04-04] MEDS: SPIRONOLACTONE 25 MG TAB PO SCH ×2 (10:39→20:37)
[2020-04-04] MEDS: busPIRone 15 MG TAB PO SCH ×2 (10:39→20:38)
[2020-04-04] MEDS: FLUTICASONE/VILANTEROL 200/25MCG 14 PUFFS/INHALER INH SCH (10:39)
[2020-04-04] MEDS: POLYETHYLENE (MIRALAX) 17 GM PACK PO SCH (10:39)
[2020-04-04] MEDS: UMECLIDINIUM BROMIDE 62.5MCG/BLISTER 7 PUFFS/INHALER INH SCH (10:39)
[2020-04-04] MEDS: DULoxetine HCL 30 MG CAP PO SCH (10:39)
[2020-04-04] MEDS: lisinopril 40 MG TAB PO SCH (10:40)
[2020-04-04] MEDS: GABAPENTIN 600 MG TAB PO SCH ×3 (10:40→20:37)
[2020-04-04] MEDS: PANTOprazole 40 MG TAB PO SCH (10:40)
[2020-04-04] MEDS: CEROVITE ADV FORMULA TAB PO SCH (10:40)
[2020-04-04] MEDS: CHOLECALCIFEROL 1,000 UNITS 25 MCG TAB PO SCH (10:40)
[2020-04-04] MEDS: amLODIPine BESYLATE 5 MG TAB PO SCH (10:40)
[2020-04-04] MEDS ORDERED: fentaNYL citrate 100 MCG/2 ML VIAL ONE (11:52)
[2020-04-04] MEDS ORDERED: MIDAZOLAM HCL 1 MG/ML 2ML VIAL ONE (11:52)
--- NOTE | 2020-04-04 11:55 | History & Physical Bridge Note ---
Date of Service April 04, 2020 History & Physical Bridge Note I have examined the patient, reviewed the History & Physical and in the interval since the performance of the History & Physical I have noted the following changes of clinical significance: no changes noted
[2020-04-04] MEDS ORDERED: BUPIVACAINE/EPINEPHRINE 0.5% MPF 1:200,000 30 ML VIAL ONE (12:06)
[2020-04-04] MEDS ORDERED: BACITRACIN INJ 50,000 UNIT VIAL ONE (12:07)
--- NOTE | 2020-04-04 12:35 | Anesthesiology Consultation ---
Date of Service April 04, 2020 Assessment & Plan Chart Review Chart Review: Acceptable Risk for Surgery Consults Requested none History Surgery Operation Date: 04/04/20 08:50 Proposed Procedures p L3-S1 Lumbar Decompression and Fusion - Jose Guaman DO Height/Weight Height: 5 ft 4 in Weight: 82 kg Allergies Allergy/AdvReac Type Severity Reaction Status Date / Time nitrofurantoin Allergy Severe SOB, Verified 03/31/20 13:10 [From Macrobid] nausea, vomiting penicillin V Allergy Unknown CAN'T Verified 03/31/20 13:10 REMEMBER REACTION atorvastatin AdvReac Intermediate muscle pain Verified 03/31/20 13:10 ciprofloxacin AdvReac Intermediate REDNESS Verified 03/31/20 13:10 ALONG VEIN simvastatin AdvReac Intermediate muscle pain Verified 03/31/20 13:10 Medications Home Medications Medication Instructions Recorded Confirmed Last Taken Oxygen Home #2 liter 12/22/18 02/24/20 04/27/19 nebulizers #1 ea 02/03/19 02/24/20 04/27/19 Flutter Valve #1 ea 04/11/19 02/24/20 04/27/19 spironolactone 25 mg tablet 25 mg PO BID #180 tab 06/08/19 03/31/20 10/10/19 09:30 lisinopril 40 mg tablet 40 mg PO QAM #90 tab 09/13/19 03/31/20 10/10/19 09:30 buspirone 15 mg tablet 15 mg PO BID #60 tab 10/31/19 03/31/20 Unknown cholecalciferol (vitamin D3) 50 mcg PO QAM 01/16/20 03/31/20 Unknown goajqtto-kiabqtm-babn-lutein 1 tab PO QAM 01/16/20 03/31/20 Unknown albuterol sulfate 90 mcg/actuation 2 puff INH Q6H PRN #18 gm 01/25/20 03/31/20 Unknown aerosol inhaler budesonide-formoterol HFA 160 2 puff INH BID #6 gm 01/25/20 03/31/20 Unknown mcg-4.5 mcg/actuation aerosol inhaler ipratropium 0.5 mg-albuterol 3 mg 3 ml INH Q8H PRN #180 ml 01/25/20 03/31/20 Unknown (2.5 mg base)/3 mL nebulization soln tiotropium bromide 2.5 2 puff INH QAM #4 g 01/25/20 03/31/20 Unknown mcg/actuation mist for inhalation duloxetine 60 mg capsule,delayed See Rx Instructions PO QAM #1 cap 02/24/20 03/31/20 Unknown release gabapentin 300 mg capsule 600 mg PO .COMPLEX cap 02/24/20 03/31/20 Unknown pantoprazole 40 mg tablet,delayed 40 mg PO DAILY #90 tab 02/24/20 03/31/20 Unknown release amlodipine 5 mg tablet 5 mg PO QAM #90 tab 02/27/20 03/31/20 Unknown oxycodone 10 mg tablet 10 mg PO BID PRN #20 tab 03/22/20 03/31/20 Unknown prednisone 10 mg PO DIRECTED 03/31/20 03/31/20 Unknown Active Medications Generic Name Dose Route Start Last Admin Trade Name Freq PRN Reason Stop Dose Admin Amlodipine Besylate 5 mg 04/01/20 09:00 04/04/20 10:40 Amlodipine Besylate 5 Mg Tab PO 05/01/20 08:59 Not Given QAM BURAK Buspirone HCl 15 mg 03/31/20 21:00 04/04/20 10:39 Buspirone 15 Mg Tab PO 04/30/20 20:59 Not Given BID BURAK Duloxetine HCl 90 mg 04/01/20 09:00 04/04/20 10:39 Duloxetine Hcl 30 Mg Cap PO 05/01/20 08:59 Not Given QAM BURAK Fluticasone/Vilanterol 1 puffs 04/01/20 09:00 04/04/20 10:39 Fluticasone/Vilanterol 200/25mcg 14 Puffs/Inhaler INH 05/01/20 08:59 Not Given DAILY BURAK Gabapentin 600 mg 04/01/20 09:00 04/04/20 10:40 Gabapentin 600 Mg Tab PO 05/01/20 08:59 Not Given TID@0900,1200,2100 BURAK Heparin Sodium (Porcine) 5,000 units 03/31/20 22:00 04/04/20 03:16 Heparin Sod 5,000 Unit/0.5 Ml Vial SQ 04/30/20 21:59 Not Given Q8 BURAK Hydromorphone HCl 0.5 mg 03/31/20 19:45 04/04/20 08:16 Hydromorphone Inj 0.5 Mg/0.5 Ml Syr IV 04/14/20 19:44 0.5 mg Q3H PRN Administration Pain Methylprednisolone 60 mg/ 0.96 mls @ 1.5 mls/min 04/01/20 08:00 04/04/20 10:19 Syringe IV 05/01/20 07:59 1.5 mls/min Q12H BURAK Administration Lisinopril 40 mg 04/01/20 09:00 04/04/20 10:40 Lisinopril 40 Mg Tab PO 05/01/20 08:59 Not Given QAM BURAK Multivitamins/Minerals 1 tab 04/01/20 09:00 04/04/20 10:40 Cerovite Adv Formula Tab PO 05/01/20 08:59 Not Given QAM BURAK Pantoprazole Sodium 40 mg 04/01/20 09:00 04/04/20 10:40 Pantoprazole 40 Mg Tab PO 05/01/20 08:59 Not Given DAILY BURAK Polyethylene Glycol 17 gm 03/31/20 21:00 04/04/20 10:39 Polyethylene (Miralax) 17 Gm Pack PO 04/30/20 20:59 Not Given BID BURAK Spironolactone 25 mg 03/31/20 21:00 04/04/20 10:39 Spironolactone 25 Mg Tab PO 04/30/20 20:59 Not Given BID BURAK Umeclidinium [place] 1 puffs 04/01/20 09:00 04/04/20 10:39 Umeclidinium [place] 62.5mcg/Blister 7 Puffs/Inhaler INH 05/01/20 08:59 Not Given QAM BURAK Vitamin D 2,000 units 04/01/20 09:00 04/04/20 10:40 Cholecalciferol 1,000 Units 25 Mcg Tab PO 05/01/20 08:59 Not Given QAM BURAK NPO Date Last Intake of Fluids: 04/03/20 Time Last Intake of Fluids: 18:00 Date Last Intake of Solids: 04/03/20 Time Last Intake of Solids: 18:00 Past Medical History Medical History Anxiety Anxiety and depression Breast cancer (12/26/13) "Abnormal left breast mammogram Status post ultrasound-guided biopsies 10/06/2013 that revealed benign status post left breast excisional biopsy 12/02/2013 revealing infiltrating ductal carcinoma estrogen receptor positive, progesterone receptor positive, 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, stage pT2 Status post reexcision and sentinel lymph node biopsy 12/26/2013 pN0 (i+) Oncotype DX score of 11 Status post completion of radiation therapy 04/13/2014 received 5006 cGy utilizing hypo-fractionation Required post radiation wound care " Chronic back pain Chronic respiratory failure with hypoxia COPD (chronic obstructive pulmonary disease) Depression Dyspnea on exertion Elevated alkaline phosphatase level Facet arthritis of lumbar region Hearing decreased History of breast cancer 5 years ago - Left + surgery, no chemo Hypercholesteremia Hypertension Lesion of right [place] kidney patient is unaware Limb alert care status LUE no lab draws Multiple pulmonary nodules On home oxygen therapy 2 LPM QHS PRN > HAS DIFFICULTY WITH KEEPING ON AT HS Osteoarthritis Osteoporosis Osteoporosis PAC (premature atrial contraction) Prediabetes Pulmonary hypertension Sciatica Sleep disturbance Spinal stenosis Spinal stenosis Statin intolerance Stenosis of iliac artery Vitamin D deficiency disease Past Family History Family History Daughter Breast cancer Mother Aortic aneurysm Renal failure Brother Prostate cancer Aortic aneurysm Father Aortic aneurysm Pure hypercholesterolemia Hypertension Grandmother (Maternal) Colon cancer Unknown Diabetes Other No family history of adverse response to anesthesia Denies family history of Ovarian cancer Myocardial infarction Past Surgical History Surgical History H/O lumbosacral spine surgery History of breast biopsy History of cataract surgery right and left History of colonoscopy History of D&C History of partial mastectomy of left breast History of right knee joint replacement History of tooth extraction Hx of oral surgery S/P breast lumpectomy Slow to wake up after anesthesia Social History Smoking Status: Former smoker tobacco type: cigarettes Smoking cigarettes per day: 10-20 Hx Alcohol Use: No Hx Substance Use: No substance use type: does not use Substance Use Type Other:: medical marijuann - bring card to make copy Physical Exam Vital Signs Last Vital Signs Temp 36.9 C 04/04/20 12:21 Pulse 84 04/04/20 12:21 Resp 16 04/04/20 12:21 BP 150/87 H 04/04/20 12:21 Pulse Ox 95 04/04/20 12:21 Testing Laboratory Results 04/03/20 05:38 04/03/20 05:38 Urine Color [place] 03/31/20 14:55 Urine Appearance Clear (Clear) 03/31/20 14:55 Urine pH 5.0 (4.5-7.5) 03/31/20 14:55 Ur Specific [place] 1.025 (1.000-1.030) 03/31/20 14:55 Urine Protein Trace (Negative) H 03/31/20 14:55 Urine Glucose (UA) Negative (Negative) 03/31/20 14:55 Urine Ketones 1+ (Negative) H 03/31/20 14:55 Urine Nitrite Positive (Negative) A 03/31/20 14:55 Ur Leukocyte Esterase 1+ (Negative) H 03/31/20 14:55 Urine WBC (Auto) 10-30 /hpf (0-5) H 03/31/20 14:55 Urine RBC (Auto) 0-4 /hpf (0-4) 03/31/20 14:55 U Hyaline Cast (Auto) 1-5 /lpf (0-5) 03/31/20 14:55 U Epithel Cells (Auto) >30 /lpf (0-5) H 03/31/20 14:55 Urine Bacteria (Auto) 4+ (Negative) H 03/31/20 14:55 Blood Type A Positive 04/03/20 15:00 Antibody Screen NEGATIVE 04/03/20 15:00 03/31/20 14:55 Urine Culture - Final Urine,Clean Catch Escherichia coli
[2020-04-04] MEDS ORDERED: HYDROmorphone INJ 2 MG/ML SYR/VIAL IV PRN (12:36)
[2020-04-04] MEDS ORDERED: PROMETHAZINE HCL 12.5 MG in SODIUM CHLORIDE 0.9% 50 ML IV PRN ×2 (12:36→17:27)
[2020-04-04] MEDS ORDERED: METOCLOPRAMIDE HCL INJ 5 MG/ML 2 ML VIAL IV PRN ×2 (12:36→17:27)
[2020-04-04] MEDS ORDERED: ePHEDrine sulfate 50 MG/ML AMP IV PRN (12:36)
[2020-04-04] MEDS ORDERED: ONDANSETRON INJ 2 MG/ML 2 ML VIAL IV PRN ×2 (12:36→17:27)
[2020-04-04] MEDS ORDERED: ATROPINE SULFATE 0.1 MG/ML 10ML SYR IV PRN (12:36)
[2020-04-04] MEDS ORDERED: DEXAMETHASONE SOD INJ 4 MG/ML VIAL ONE (13:28)
[2020-04-04] MEDS ORDERED: ePHEDrine sulfate 50 MG/ML SYR ONE (13:28)
[2020-04-04] MEDS ORDERED: ROCURONIUM BROMIDE 10 MG/ML 5 ML VIAL IV ONE (13:28)
[2020-04-04] MEDS ORDERED: PROPOFOL IV EMULSION 10 MG/ML 100 ML VIAL IV ONE (13:28)
[2020-04-04] MEDS ORDERED: LIDOCAINE HCL 2% 2 ML VIAL/AMP(20MG/ML) INFIL ONE (13:28)
[2020-04-04] MEDS ORDERED: HYDROmorphone INJ 2 MG/ML SYR/VIAL ONE (13:41)
[2020-04-04] MEDS ORDERED: FLOSEAL HEMOSTATIC MATRIX 10ML TOP ONE (14:45)
--- NOTE | 2020-04-04 14:59 | Operative Report ---
Post Operative Report Pre & Post Diagnosis Operation Date: 04/04/20 08:50 Pre-Op Diagnosis: Chronic back pain, lumbar disc herniation with radiculopathy L3-S1 Post-Op Diagnosis: Chronic back pain, lumbar disc herniation with radiculopathy L3-S1 I identified the patient and participated in the time-out.: Yes Procedure Operation Date: 04/04/20 08:50 Actual Procedures #1 revision decompression with bilateral medial facetectomies and foraminotomies L2-3, L3-4 L4-5 and L5-S1. #2 posterior spinal fusion L3-4, L4-5 and L5-S1. #3 placement posterior segmental instrumentation L3-S1. #4 interbody fusion L3-4 and L4-5 per #5 placement peek cage 12 x 22 mm at L3-4 and 11 x 22 mm at L4-5. #6 placement locally harvested morselized autograft in the posterior lateral gutters. #7 placement infuse collagen sponge, and master graft in the posterior lateral gutters and osteopenic body space. Surgeon Jose Guaman, Serology Technician Namita Finney Estimated Blood Loss 100 Findings Consistent with Post-Op Diagnosis Specimens None Indications This is a 79-year-old female who presents marked decline in status with right leg weakness and inability to ambulate is here for emergent decompression fusion. Description of Procedure Patient was met with identified informed consent obtained. Patient was then taken to the operative suite underwent an patient placed in a prone position the Chris table on top of the Supa frame. All bony prominences well-padded eyes inspected to ensure no external pressure placed upon the. This point the lumbar spine was prepped and draped in a sterile fashion. Sharp dissection with the assistance of Bovie cautery was performed down to and exposing the remaining lamina and transverse processes of L3-L4-L5 and sacral ala bilaterally. From caudal to cephalad fashion revision complete laminectomy of L5 L4 L3 partial laminectomy of L2 was performed including bilateral medial facetectomies and foraminotomies addressing severe spinal stenosis. Pedicle screws were then placed in L3-L4-L5 and the S1 levels bilaterally with assistance of fluoroscopy and appropriately sized lance placed. By way of a transforaminal approach on the right complete discectomy of L3-4 was performed endplates curetted to subcortical bleeding bone and a 12 x 22 mm peek cage filled with osteobone graft tapped in position. Then proceeded L4-[address] of a transforaminal approach on the left complete discectomy performed endplates curetted to subcortically bone and a 11 x 22 mm peek cage filled with osteobone graft tapped in position. The rods were then locked in final position bilaterally. The transverse processes of L3-L4-L5 and the sacral ala burred to subcortical ble eding bone. Infuse collagen sponge master graft local autograft was placed in the posterior lateral gutters. 15 round LIS drain inserted. The incision was then closed with 1 Vicryl in the fascia 2-0 Vicryl subcutaneously and 4 Monocryl for final skin closure. Steri-Strip sterile dressings placed. Patient waken taken to PACU stable condition. Please note spinal cord monitoring was utilized at the pr ocedure no changes noted. Lastly Namita Finney was present at the entire surgery involved the patient positioning complex portions of the surgery and final skin closure. I attest to the content of the Intraoperative Record and any orders documented therein. Any exceptions are noted below.
--- NOTE | 2020-04-04 15:00 | Fluoroscopy Report ---
FL lumbar spine 2-3V CLINICAL HISTORY: L3-S1 DECOMPRESSION/FUSION/INTERBODY COMPARISON STUDY: None. FLUOROSCOPY TIME: 31 second. FINDINGS: 2 fluoroscopic spot images of the lumbar spine demonstrate posterior decompression fusion f rom L3 through S1 with pedicle screws and rods. The hardware is intact. IMPRESSION: Fluoroscopy provided for a L3-S1 posterior decompression and fusion ACT 112: Negative or not required by law. Electronically signed by: Konrad Casas M.D. 04/04/2020 2:58 PM
[2020-04-04] MEDS: fentaNYL citrate 100 MCG/2 ML VIAL IV PRN ×2 (15:57→16:02)
--- NOTE | 2020-04-04 16:04 | Anesthesiology Progress Note ---
Date of Service April 04, 2020 Anesthesia Post Procedure Vital Signs Vital Signs: Temp Pulse Pulse Resp BP Pulse Ox 04/04/20 15:45 36.3 C L 88 18 129/65 94 04/04/20 15:35 98 H 20 132/86 97 04/04/20 15:25 89 15 142/68 H 97 04/04/20 15:16 36.5 C 102 H 17 188/96 H 99 04/04/20 12:21 36.9 C 84 16 150/87 H 95 04/04/20 07:22 36.7 C 100 H 18 142/81 H 93 04/03/20 22:42 36.4 C L 66 14 115/69 92 Pain Intensity Back: Pain Intensity: 0 Transfer of Care Handoff Completed per policy Notes Mental Status: alert / awake / arousable and participated in evaluation Patient Amnestic to Procedure: Yes Nausea / Vomiting: adequately controlled Pain: adequately controlled Airway Patency, RR, SpO2: stable & adequate BP & HR: stable & adequate Hydration State: stable & adequate Anesthetic Complications: no major complications apparent and Pt Satisfied with anesthetic care
[2020-04-04] MEDS ORDERED: ONDANSETRON 4 MG OD TAB PO PRN (17:27)
[2020-04-04] MEDS ORDERED: ACETAMINOPHEN 1,000 MG/100 ML VIAL IV PRN (17:27)
[2020-04-04] MEDS ORDERED: ALUMINUM/MAGNESIUM SUSP 30 ML UDC PO PRN (17:27)
[2020-04-04] MEDS ORDERED: DO NOT ADMINISTER FLU VACCINE PRN (17:27)
[2020-04-04] MEDS ORDERED: SODIUM CHLORIDE 0.9% 1000ML 1,000 ML IV SCH ×2 (17:27→19:15)
[2020-04-04] MEDS ORDERED: LORazepam 0.5 MG TAB PO PRN (17:27)
[2020-04-04] MEDS ORDERED: ACETAMINOPHEN 500 MG TAB PO PRN (17:27)
[2020-04-04] MEDS ORDERED: bisacodyL 10 MG SUPP PR PRN (17:27)
[2020-04-04] MEDS ORDERED: NALOXONE HCL 0.4 MG/1 ML VIAL/CARP IV PRN (17:27)
[2020-04-04] MEDS ORDERED: hydrOXYzine HCl 25 MG TAB PO PRN (17:27)
[2020-04-04] MEDS ORDERED: SOD PHOSPHATE/SOD BIPHOSPHATE ENEMA 132 ML BTL PR PRN (17:27)
[2020-04-04] MEDS ORDERED: MAGNESIUM HYDROXIDE SUSP 30 ML UDC PO PRN (17:27)
[2020-04-04] MEDS ORDERED: DO NOT ADMINISTER PNEUMOCOCCAL VACCINE PRN (17:27)
[2020-04-04] MEDS ORDERED: traMADol HCL 50 MG TABLET PO PRN (17:27)
[2020-04-04] MEDS ORDERED: diphenhydrAMINE Capsule 25 MG CAP PO PRN (17:27)
[2020-04-04] MEDS ORDERED: FAMOTIDINE 20 MG TAB PO PRN (17:27)
[2020-04-04] MEDS ORDERED: LORazepam 0.5 MG/1 ML VIAL IV PRN (17:27)
[2020-04-04] MEDS: CLINDAMYCIN 600 MG in DEXTROSE 5% 50 ML IV SCH (20:21)
[2020-04-04] MEDS: DOCUSATE SODIUM/SENNA 50/8.6MG TAB PO SCH (20:36)
--- NOTE | 2020-04-04 22:34 | Hospitalist Progress Note ---
Date of Service April 04, 2020 Assessment & Plan (1) Chronic back pain: Patient with long standing history of back pain and therapeutic options. S/P lumbar decompression and fusion - Acute on chronic pain with sciatica to knee of left leg. CT lumbar spine shows suspected severe central canal stenosis at L4-L5 and at least moderate central canal stenosis at L3-L4 -Unable to walk at home and lives alone prior to surgery. Failed outpatient course of p.o. prednisone 10 mg twice daily along with p.o. oxycodone at home -methylprednisolone 60 mg IV twice daily - Increased Gabapentin to 600 three times daily from 600/300/600mg -IV Dilaudid for uncontrolled pain - Pain goal that is tolerable for the patient is 7-10 - Orthopaedic consult - Continue home adjuvant therapies - PT and OT consults - Fall precautions, assist with OOB and ambulation - Patient does endorse neuropathies as chronic, but states that sensation is felt equally bilateral and responds appropriately when touched or stroked to soles of feet and lower extremities. -Patient is now agreeable to surgical procedure. -Patient is intermediate risk for intermediate risk procedure. No further work up is required. Appreciate input from Ortho. (2) Leukocytosis, unspecified: Leukocytosis attributed to outpatient steroids at this time - urine appears at this time to be contaminated and patient is asymptomatic, did get ABX dose in the EMD. Reassess in the morning. - QSOFA 0 - SIRS 0 (3) Asymptomatic bacteriuria: As above, - Hydrate patient with PO fluids, follow symptomatic (4) Hypertension: No acute needs, patient appears well controlled. Continue home medications. 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 - Continue home inhalers - Nicotene patch PRN - Oxygen 2LNC for SPO2 88-92% - Notify providers if Oxygen needs increases. (6) Anxiety and depression: Related to chronic pain and processes of chronic disease - dual benefit from adjuvant pain meds, continue. -Continue BuSpar (7) Colitis: Noted on CT scan abdomen/pelvis. She has no abdominal pain, no fever, no diarrhea. In fact, she has only moved her bowels once in the last 7 days due to opioid use and laying around in bed all day. Could be a stercoral colitis presumed secondary to constipation from such - Again does not strike me as infectious, however will symptomatically follow patient. No antibiotics indicated at this time (8) Prediabetes: Has a history of prediabetes, is not on medication Given that she will be on high-dose steroids, may need to start following glucose checks and give insulin if has hyperglycemia on morning labs (9) Current smoker: Encourage cessation Continue nicotine patch as needed (10) DVT prophylaxis: VTE: Heparin and SCD's GI prophy: Protonix while on steroids and for increase in NSAID use Abx: discontinued at this time Code: Full Admission and Anticipated Discharge Date Admission Date: March 31, 2020 Subjective 79 yo female reports feeling well today. She tolerated the surgery and has minimal pain at time of visit. Review of Systems Review of Systems: All systems reviewed & are unremarkable except as noted in HPI & below Physical Exam Physical Exam: General: awake, alert, no apparent distress Head: Normocephalic, atraumatic ENT: PERRL, EOMI, no pharyngeal exudate, mucous membranes moist Neuro: AAO x 3, speech clear and appropriate, strength intact bilaterally 5/5 upper and lower extremities, sensation intact and equal all extremities, no pronator drift, normal babinski and ROM Chest: equal rise and fall of the chest, no accessory muscle use, no heaves or thirlls, Clear to auscultation, on room air, Cardiac: Regular rate and rhythm, telemetry reviewed, skin warm dry, cap refill <3 seconds, peripheral pusles +2 no JVD, no murmur, no JVD, no edema GI: NABS x 4 quadrants, soft, nontender to palpation, no rebound, guarding or tenderness : Spontaneously voiding, no pain, no CVA tenderness, Extremities: Normal inspection, no peripheral edema or erythema, calfs nontender to palpation Musculoskeletal: (+) Pain to palpation to soft tissues around lumbar and sacral area. Pain to palpation over left femoral headand course of IT band. Patient unable to flex knee, normal passive flexion of left knee. negative log roll. Psych: Normal mood and affect Skin: no rash or erythema Results & Data Results & Data ([facility]) Vital Signs (Past 12 Hours) Vital Signs Temp Pulse Pulse Pulse Resp BP Pulse Ox 04/04/20 18:54 36.4 C L 80 16 110/69 95 04/04/20 17:33 80 16 101/54 L 95 04/04/20 17:09 36.4 C L 16 99/65 L 95 04/04/20 16:20 69 15 104/49 L 94 04/04/20 16:15 67 15 104/53 L 94 04/04/20 16:05 79 22 116/76 96 04/04/20 15:55 87 22 134/71 93 04/04/20 15:45 36.3 C L 88 18 129/65 94 04/04/20 15:35 98 H 20 132/86 97 04/04/20 15:25 89 15 142/68 H 97 04/04/20 15:16 36.5 C 102 H 17 188/96 H 99 04/04/20 12:21 36.9 C 84 16 150/87 H 95 PG Care Time/CCT Total # of Minutes Spent Total Time Spent with Patient: Total time spent is greater than 50% in coordination of care (as documented) at patient's floor/unit and/or counseling patient: Coding Level of Care Code 07506 Subseq Hosp Care Lvl 2 Diagnoses Chronic back pain M54.42; G89.29 Back pain laterality: bilateral Back pain location: low back pain Sciatica laterality: sciatica of left side Sciatica presence: with sciatica Leukocytosis, unspecified D72.829 Leukocytosis type: unspecified Asymptomatic bacteriuria R82.71 Hypertension I10 Hypertension type: essential hypertension COPD with emphysema J43.9 Emphysema type: unspecified Anxiety and depression F41.9; F32.9 Colitis K52.9 Prediabetes R73.03 Current smoker F17.200 DVT prophylaxis Z29.9 Time Spent (min) 25 (1) Leukocytosis, unspecified Leukocytosis type: unspecified Qualified Code(s): D72.829 - Elevated white blood cell count, unspecified (2) COPD with emphysema Emphysema type: unspecified Qualified Code(s): J43.9 - Emphysema, unspecified (3) Chronic back pain Back pain laterality: bilateral Back pain location: low back pain Sciatica laterality: sciatica of left side Sciatica presence: with sciatica Qualified Code(s): M54.42 - Lumbago with sciatica, left side; G89.29 - Other chronic pain (4) Hypertension Hypertension type: essential hypertension Qualified Code(s): I10 - Essential (primary) hypertension
[2020-04-05] MEDS: CLINDAMYCIN 600 MG in DEXTROSE 5% 50 ML IV SCH (04:00)
[2020-04-05] MEDS: oxyCODONE HCL IR 5 MG TAB (IMMEDIATE RELEASE) PO PRN ×3 (05:44→20:41)
[2020-04-05] MEDS: POLYETHYLENE (MIRALAX) 17 GM PACK PO SCH ×4 (05:52→23:45)
[2020-04-05] MEDS: HEPARIN SOD 5,000 UNIT/0.5 ML VIAL SQ SCH ×3 (05:55→20:44)
[2020-04-05 06:12] LABS: Hematocrit (blood only) 37.7 % (37-47); Hemoglobin 12.6 g/dL (12.0-16.0); Mean Corpuscular Hemoglobin 30.9 pg (25-34); Mean Corpuscular Hgb Conc 33.4 g/dL (32-36); Mean Corpuscular Volume 92.4 fL (80-100); Mean Platelet Volume 10.3 fL (7.4-10.4); Platelet Count 255 K/uL (130-400); RDW Coefficient of Variation 14.1 % (11.5-14.5); RDW Standard Deviation 48.1 fL (36.4-46.3); Red Blood Count 4.08 M/uL (4.2-5.4); White Blood Count 20.11 K/uL (4.8-10.8)
[2020-04-05 06:40] LABS: Immature Granulocytes # (auto) 0.13 K/uL (0.00-0.02); Immature Granulocytes % (auto) 0.6 %; Lymphocytes # (auto) 1.86 K/uL (1.2-3.4); Lymphocytes % (auto) 9.2 %; Monocytes # (auto) 0.43 K/uL (0.11-0.59); Monocytes % (auto) 2.1 %; Neutrophils # (auto) 17.69 K/uL (1.4-6.5); Neutrophils % (auto) 88.1 %
[2020-04-05 06:43] LABS: BUN Creatinine Ratio 33.8 (10-20); Calcium 8.4 mg/dl (8.5-10.1); Creatinine Clr Calc Pharmacy 30.7 ml/min; Est GFR (African American) 36.8; Est GFR (Non-African American) 31.8
--- NOTE | 2020-04-05 08:50 | Orthopedic Progress Note ---
Date of Service April 05, 2020 Assessment & Plan (1) Lumbar disc herniation with radiculopathy: Admission and Anticipated Discharge Date Admission Date: March 31, 2020 This time initiate physical therapy monitor LIS output hopefully discharge home this weekend. Subjective Back pain controlled leg symptoms improved. Physical Exam Physical Exam: On exam she has good strength testing peers comfortable. Results & Data ([facility]) Vital Signs (Past 12 Hours) Vital Signs Temp Pulse Resp BP Pulse Ox 04/05/20 07:25 36.5 C 81 18 119/72 92 04/05/20 06:10 92 04/05/20 04:14 36.6 C 79 14 111/73 95 04/04/20 23:41 36.6 C 76 18 113/71 91
[2020-04-05] MEDS: amLODIPine BESYLATE 5 MG TAB PO SCH (08:53)
[2020-04-05] MEDS: SPIRONOLACTONE 25 MG TAB PO SCH ×2 (08:53→20:30)
[2020-04-05] MEDS: CHOLECALCIFEROL 1,000 UNITS 25 MCG TAB PO SCH (08:53)
[2020-04-05] MEDS: PANTOprazole 40 MG TAB PO SCH (08:53)
[2020-04-05] MEDS: DULoxetine HCL 30 MG CAP PO SCH (08:53)
[2020-04-05] MEDS: CEROVITE ADV FORMULA TAB PO SCH (08:53)
[2020-04-05] MEDS: methylPREDNISolone 60 MG in SYRINGE 0 ML IV SCH ×2 (08:53→20:32)
[2020-04-05] MEDS: busPIRone 15 MG TAB PO SCH ×2 (08:54→20:31)
[2020-04-05] MEDS: FLUTICASONE/VILANTEROL 200/25MCG 14 PUFFS/INHALER INH SCH (08:54)
[2020-04-05] MEDS: lisinopril 40 MG TAB PO SCH (08:55)
[2020-04-05] MEDS: UMECLIDINIUM BROMIDE 62.5MCG/BLISTER 7 PUFFS/INHALER INH SCH (08:55)
[2020-04-05] MEDS: GABAPENTIN 600 MG TAB PO SCH ×3 (08:55→20:31)
[2020-04-05] MEDS: DEXAMETHASONE SOD PHOSPHATE 8 MG in SYRINGE 0 ML IV SCH (09:55)
[2020-04-05] MEDS: DOCUSATE SODIUM/SENNA 50/8.6MG TAB PO SCH (20:31)
--- NOTE | 2020-04-05 22:31 | Hospitalist Progress Note ---
Date of Service April 05, 2020 Assessment & Plan (1) Chronic back pain: Patient with long standing history of back pain and therapeutic options. S/P lumbar decompression and fusion - Acute on chronic pain with sciatica to knee of left leg. CT lumbar spine shows suspected severe central canal stenosis at L4-L5 and at least moderate central canal stenosis at L3-L4 -Unable to walk at home and lives alone prior to surgery. Failed outpatient course of p.o. prednisone 10 mg twice daily along with p.o. oxycodone at home -methylprednisolone 60 mg IV twice daily. will discontinue. - Increased Gabapentin to 600 three times daily from 600/300/600mg -IV Dilaudid for uncontrolled pain - Pain goal that is tolerable for the patient is 7-8/ - Orthopaedic consult - Continue home adjuvant therapies - PT and OT consults - Fall precautions, assist with OOB and ambulation -Discharge likely over weekend. Daughter is physical therapist. will be going home. (2) Leukocytosis, unspecified: Leukocytosis attributed to outpatient steroids at this time - urine appears at this time to be contaminated and patient is asymptomatic, did get ABX dose in the EMD. Reassess in the morning. - QSOFA 0 - SIRS 0 (3) Asymptomatic bacteriuria: As above, - Hydrate patient with PO fluids, follow symptomatic (4) Hypertension: No acute needs, patient appears well controlled. Continue home medications. 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 - Continue home inhalers - Nicotene patch PRN - on room air. (6) Anxiety and depression: Related to chronic pain and processes of chronic disease - dual benefit from adjuvant pain meds, continue. -Continue BuSpar (7) Colitis: Noted on CT scan abdomen/pelvis. She has no abdominal pain, no fever, no diarrhea. In fact, she has only moved her bowels once in the last 7 days due to opioid use and laying around in bed all day. Could be a stercoral colitis presumed secondary to constipation from such - Again does not strike me as infectious, however will symptomatically follow patient. No antibiotics indicated at this time (8) Prediabetes: Has a history of prediabetes, is not on medication Given that she will be on high-dose steroids, may need to start following glucose checks and give insulin if has hyperglycemia on morning labs (9) Current smoker: Encourage cessation Continue nicotine patch as needed (10) DVT prophylaxis: VTE: Heparin and SCD's GI prophy: Protonix while on steroids and for increase in NSAID use Abx: discontinued at this time Code: Full Admission and Anticipated Discharge Date Admission Date: March 31, 2020 Subjective Mild to moderate pain at incision site. Patient denies any new complaints Review of Systems Review of Systems: All systems reviewed & are unremarkable except as noted in HPI & below Physical Exam Physical Exam: General: awake, alert, no apparent distress Head: Normocephalic, atraumatic ENT: PERRL, EOMI, no pharyngeal exudate, mucous membranes moist Neuro: AAO x 3, speech clear and appropriate, strength intact bilaterally 5/5 upper and lower extremities, sensation intact and equal all extremities, no pronator drift, normal babinski and ROM Chest: equal rise and fall of the chest, no accessory muscle use, no heaves or thirlls, Clear to auscultation, on room air, Cardiac: Regular rate and rhythm, telemetry reviewed, skin warm dry, cap refill <3 seconds, peripheral pusles +2 no JVD, no murmur, no JVD, no edema GI: NABS x 4 quadrants, soft, nontender to palpation, no rebound, guarding or tenderness : Spontaneously voiding, no pain, no CVA tenderness, Extremities: Normal inspection, no peripheral edema or erythema, calfs nontender to palpation Musculoskeletal: dry dressing noted midline in lumbar region. Psych: Normal mood and affect Skin: no rash or erythema Results & Data Results & Data ([facility]) Vital Signs (Past 12 Hours) Vital Signs Temp Pulse Resp BP Pulse Ox Pulse Ox 04/05/20 15:52 36.6 C 89 18 107/58 L 93 04/05/20 11:35 92 04/05/20 11:33 37.1 C 91 H 18 90/57 L 93 PG Care Time/CCT Total # of Minutes Spent Total Time Spent with Patient: Total time spent is greater than 50% in coordination of care (as documented) at patient's floor/unit and/or counseling patient: Coding Level of Care Code 29051 Subseq Hosp Care Lvl 2 Diagnoses Chronic back pain M54.42; G89.29 Back pain laterality: bilateral Back pain location: low back pain Sciatica laterality: sciatica of left side Sciatica presence: with sciatica Leukocytosis, unspecified D72.829 Leukocytosis type: unspecified Asymptomatic bacteriuria R82.71 Hypertension I10 Hypertension type: essential hypertension COPD with emphysema J43.9 Emphysema type: unspecified Anxiety and depression F41.9; F32.9 Colitis K52.9 Prediabetes R73.03 Current smoker F17.200 DVT prophylaxis Z29.9 Time Spent (min) 25 (1) Leukocytosis, unspecified Leukocytosis type: unspecified Qualified Code(s): D72.829 - Elevated white blood cell count, unspecified (2) COPD with emphysema Emphysema type: unspecified Qualified Code(s): J43.9 - Emphysema, unspecified (3) Chronic back pain Back pain laterality: bilateral Back pain location: low back pain Sciatica laterality: sciatica of left side Sciatica presence: with sciatica Qualified Code(s): M54.42 - Lumbago with sciatica, left side; G89.29 - Other chronic pain (4) Hypertension Hypertension type: essential hypertension Qualified Code(s): I10 - Essential (primary) hypertension
[2020-04-06] MEDS: HYDROmorphone INJ 0.5 MG/0.5 ML SYR IV PRN ×2 (00:41→06:34)
[2020-04-06] MEDS: POLYETHYLENE (MIRALAX) 17 GM PACK PO SCH (06:33)
[2020-04-06] MEDS: HEPARIN SOD 5,000 UNIT/0.5 ML VIAL SQ SCH ×3 (06:35→20:31)
[2020-04-06 08:08] LABS: Hematocrit (blood only) 35.8 % (37-47); Hemoglobin 11.8 g/dL (12.0-16.0); Mean Corpuscular Hemoglobin 30.2 pg (25-34); Mean Corpuscular Volume 91.6 fL (80-100); Mean Platelet Volume 9.7 fL (7.4-10.4); Platelet Count 216 K/uL (130-400); RDW Coefficient of Variation 14.1 % (11.5-14.5); RDW Standard Deviation 46.8 fL (36.4-46.3); Red Blood Count 3.91 M/uL (4.2-5.4); White Blood Count 18.19 K/uL (4.8-10.8)
[2020-04-06] MEDS: FLUTICASONE/VILANTEROL 200/25MCG 14 PUFFS/INHALER INH SCH (09:05)
[2020-04-06] MEDS: DEXAMETHASONE SOD PHOSPHATE 8 MG in SYRINGE 0 ML IV SCH (09:05)
[2020-04-06] MEDS: UMECLIDINIUM BROMIDE 62.5MCG/BLISTER 7 PUFFS/INHALER INH SCH (09:05)
[2020-04-06] MEDS: CHOLECALCIFEROL 1,000 UNITS 25 MCG TAB PO SCH (09:06)
[2020-04-06] MEDS: busPIRone 15 MG TAB PO SCH ×2 (09:06→20:31)
[2020-04-06] MEDS: GABAPENTIN 600 MG TAB PO SCH ×3 (09:06→20:31)
[2020-04-06] MEDS: PANTOprazole 40 MG TAB PO SCH (09:06)
[2020-04-06] MEDS: SPIRONOLACTONE 25 MG TAB PO SCH ×2 (09:07→20:31)
[2020-04-06] MEDS: DULoxetine HCL 30 MG CAP PO SCH (09:07)
[2020-04-06] MEDS: CEROVITE ADV FORMULA TAB PO SCH (09:08)
[2020-04-06] MEDS: lisinopril 40 MG TAB PO SCH (09:09)
[2020-04-06] MEDS: oxyCODONE HCL IR 5 MG TAB (IMMEDIATE RELEASE) PO PRN ×2 (09:11→20:35)
[2020-04-06] MEDS: amLODIPine BESYLATE 5 MG TAB PO SCH (09:14)
[2020-04-06] MEDS: HYDROmorphone INJ 1 MG/ML SYRINGE IV PRN (10:33)
--- NOTE | 2020-04-06 17:05 | Hospitalist Progress Note ---
Date of Service April 06, 2020 Assessment & Plan (1) KWAME (acute kidney injury): Baseline Cr ~1.0, eGFR 55. - Cr up to 1.5 on 04/05, looks pre-renal from BUN:Cr ratio. - Will retest tomorrow, adjust meds as needed. (2) Chronic back pain: Patient with long standing history of back pain and therapeutic options. S/P lumbar decompression and fusion - Acute on chronic pain with sciatica to knee of left leg. CT lumbar spine shows suspected severe central canal stenosis at L4-L5 and at least moderate central canal stenosis at L3-L4 -Unable to walk at home and lives alone prior to surgery. Failed outpatient course of p.o. prednisone 10 mg twice daily along with p.o. oxycodone at home -methylprednisolone 60 mg IV twice daily. will discontinue. - Increased Gabapentin to 600 three times daily from 600/300/600mg -IV Dilaudid for uncontrolled pain - Pain goal that is tolerable for the patient is 7-8/10 - Orthopaedic consult - Continue home adjuvant therapies - PT and OT consults - Fall precautions, assist with OOB and ambulation Daughter is physical therapist. will be going home when able. No major improvement today. (3) Hypertension: BP is 112/67 today. Patient appears well-controlled. - Continue home medications: amlodipine, lisinopril, & spironolactone (4) Leukocytosis, unspecified: Leukocytosis attributed to outpatient steroids at this time. No focal signs of infection. UA was contaminated and patient is asymptomatic. 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 No wheezing or shortness of breath today. - Continue home inhalers - Nicotine patch PRN (6) Anxiety and depression: Related to chronic pain and processes of chronic disease. - Continue BuSpar & duloxetine (7) Colitis: Noted on CT scan abdomen/pelvis on 03/31. She has no abdominal pain, no fever, no diarrhea. Could be a stercoral colitis presumed secondary to constipation. - No antibiotics indicated at this time (8) Prediabetes: Has a history of prediabetes, is not on medication. - Monitor AM labs while on steroids. (9) Current smoker: - Encourage cessation - Continue nicotine patch as needed (10) DVT prophylaxis: Heparin 5000 units SQ Q12h Admission and Anticipated Discharge Date Admission Date: March 31, 2020 Subjective Still with lots of pain in the left hip. Reports no fevers/chills, chest pain, shortness of breath, abdominal pain, nausea, or vomiting. Physical Exam Constitutional: WD/WN, vitals as above Eyes: EOM intact bilaterally; no conjunctival abnormality ENMT: external ear and nose normal, oropharynx normal Neck: trachea midline, no thyromegaly normal visual inspection Respiratory: normal respiratory effort, lungs clear to auscultation no respiratory distress Cardiovascular: RRR, no murmur, no edema Gastrointestinal (Abdomen): Inspection/Auscultation: abdomen normal to inspection; abdomen not distended Musculoskeletal: no cyanosis or clubbing, extremities motor strength 5/5 Skin: no rashes, warm and dry Neurologic: moves all extremities and awake Psychiatric: Orientation: alert, oriented to person and cooperative Results & Data Results & Data ([facility]) Vital Signs (Past 12 Hours) Vital Signs Temp Pulse Resp BP Pulse Ox 04/06/20 15:12 36.2 C L 82 14 112/67 91 04/06/20 07:27 36.5 C 81 16 97/61 L 94 PG Care Time/CCT Total # of Minutes Spent Total Time Spent with Patient: Total time spent is greater than 50% in coordination of care (as documented) at patient's floor/unit and/or counseling patient: Coding Level of Care Code 65913 Subseq Hosp Care Lvl 3 Diagnoses KWAME (acute kidney injury) N17.9 Chronic back pain M54.42; G89.29 Back pain location: low back pain Back pain laterality: bilateral Sciatica presence: with sciatica Sciatica laterality: sciatica of left side Hypertension I10 Hypertension type: essential hypertension Leukocytosis, unspecified D72.829 Leukocytosis type: unspecified COPD with emphysema J43.9 Emphysema type: unspecified Anxiety and depression F41.9; F32.9 Colitis K52.9 Prediabetes R73.03 Current smoker F17.200 DVT prophylaxis Z29.9 (1) Chronic back pain Back pain location: low back pain Back pain laterality: bilateral Sciatica presence: with sciatica Sciatica laterality: sciatica of left side Qualified Code(s): M54.42 - Lumbago with sciatica, left side; G89.29 - Other chronic pain (2) Leukocytosis, unspecified Leukocytosis type: unspecified Qualified Code(s): D72.829 - Elevated white blood cell count, unspecified (3) Hypertension Hypertension type: essential hypertension Qualified Code(s): I10 - Essential (primary) hypertension (4) COPD with emphysema Emphysema type: unspecified Qualified Code(s): J43.9 - Emphysema, unspecified
[2020-04-06] MEDS: DOCUSATE SODIUM/SENNA 50/8.6MG TAB PO SCH (20:31)
[2020-04-07] MEDS: HYDROmorphone INJ 0.5 MG/0.5 ML SYR IV PRN ×3 (00:10→23:50)
[2020-04-07] MEDS: oxyCODONE HCL IR 5 MG TAB (IMMEDIATE RELEASE) PO PRN ×2 (06:11→21:54)
[2020-04-07 06:34] LABS: Hematocrit (blood only) 34.6 % (37-47); Hemoglobin 11.5 g/dL (12.0-16.0); Mean Corpuscular Hemoglobin 30.5 pg (25-34); Mean Corpuscular Hgb Conc 33.2 g/dL (32-36); Mean Corpuscular Volume 91.8 fL (80-100); Mean Platelet Volume 9.8 fL (7.4-10.4); Platelet Count 223 K/uL (130-400); RDW Standard Deviation 47.1 fL (36.4-46.3); Red Blood Count 3.77 M/uL (4.2-5.4); White Blood Count 18.44 K/uL (4.8-10.8)
[2020-04-07 07:19] LABS: BUN Creatinine Ratio 41.3 (10-20); Creatinine Clr Calc Pharmacy 28.3 ml/min; Est GFR (African American) 33.4; Est GFR (Non-African American) 28.8; Magnesium 2.8 mg/dl (1.8-2.4); Potassium 5.4 mmol/L (3.5-5.1)
[2020-04-07] MEDS: UMECLIDINIUM BROMIDE 62.5MCG/BLISTER 7 PUFFS/INHALER INH SCH (08:46)
[2020-04-07] MEDS: FLUTICASONE/VILANTEROL 200/25MCG 14 PUFFS/INHALER INH SCH (08:46)
[2020-04-07] MEDS: PANTOprazole 40 MG TAB PO SCH (08:47)
[2020-04-07] MEDS: amLODIPine BESYLATE 5 MG TAB PO SCH (08:47)
[2020-04-07] MEDS: DULoxetine HCL 30 MG CAP PO SCH (08:47)
[2020-04-07] MEDS: CEROVITE ADV FORMULA TAB PO SCH (08:47)
[2020-04-07] MEDS: CHOLECALCIFEROL 1,000 UNITS 25 MCG TAB PO SCH (08:47)
[2020-04-07] MEDS: SPIRONOLACTONE 25 MG TAB PO SCH (08:47)
[2020-04-07] MEDS: GABAPENTIN 600 MG TAB PO SCH ×3 (08:48→20:22)
[2020-04-07] MEDS: DEXAMETHASONE SOD PHOSPHATE 8 MG in SYRINGE 0 ML IV SCH (08:48)
[2020-04-07] MEDS: busPIRone 15 MG TAB PO SCH ×2 (08:48→20:22)
[2020-04-07] MEDS: HEPARIN SOD 5,000 UNIT/0.5 ML VIAL SQ SCH ×2 (08:49→20:22)
[2020-04-07] MEDS ORDERED: COUGH DROP (SUGAR FREE) LOZ 24 LOZ/1 BOX BUCCAL ONE (09:34)
[2020-04-07] MEDS ORDERED: COUGH DROP (SUGAR FREE) LOZ 24 LOZ/1 BOX BUCCAL PRN (09:36)
--- NOTE | 2020-04-07 09:54 | Orthopedic Progress Note ---
Date of Service April 07, 2020 Assessment & Plan (1) Lumbar disc herniation with radiculopathy: Admission and Anticipated Discharge Date Admission Date: March 31, 2020 At this time we will continue physical therapy monitor LIS output anticipate being able to discontinue her LIS drain tomorrow and possible discharge home tomorrow. Subjective Patient states her leg symptoms are improved. Still struggling with weakness to the left thigh. Physical Exam Physical Exam: On exam she is ambulate with a walker. Bench exam she does have deficits to the left quadricep. She is unable to extend her leg. Her testing is intact otherwise. Results & Data ([facility]) Vital Signs (Past 12 Hours) Vital Signs Temp Pulse Resp BP Pulse Ox 04/07/20 08:07 36.5 C 64 18 104/61 96 04/06/20 23:00 36.7 C 75 20 116/54 L 90
--- NOTE | 2020-04-07 13:14 | Hospitalist Progress Note ---
Date of Service April 07, 2020 Assessment & Plan (1) KWAME (acute kidney injury): Baseline Cr ~1.0, eGFR 55. - Cr up to 1.5 on 04/05, looks pre-renal from BUN:Cr ratio. - Will give IV fluids today given the patient's Cr is up to 1.7 with elevated BUN. - Recheck this evening to ensure K+ not going too high. - Hold lisinopril & spironolactone (2) Chronic back pain: Patient with long standing history of back pain and therapeutic options. S/P lumbar decompression and fusion - Acute on chronic pain with sciatica to knee of left leg. CT lumbar spine shows suspected severe central canal stenosis at L4-L5 and at least moderate central canal stenosis at L3-L4 -Unable to walk at home and lives alone prior to surgery. Failed outpatient course of p.o. prednisone 10 mg twice daily along with p.o. oxycodone at home -methylprednisolone 60 mg IV twice daily. will discontinue. - Increased Gabapentin to 600 three times daily from 600/300/600mg -IV Dilaudid for uncontrolled pain - Pain goal that is tolerable for the patient is 7-10/23 - Orthopaedic consult - Continue home adjuvant therapies - PT and OT consults - Fall precautions, assist with OOB and ambulation Daughter is physical therapist. will be going home when able. Some improvement today, though still weak. (3) Hypertension: BP is 104/60 today. Patient appears well-controlled. - Continue home amlodipine - Hold lisinopril & spironolactone for KWAME (4) Leukocytosis, unspecified: Leukocytosis attributed to outpatient steroids at this time. No focal signs of infection. UA was contaminated and patient is asymptomatic. 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 No wheezing or shortness of breath today. - Continue home inhalers - Nicotine patch PRN (6) Anxiety and depression: Related to chronic pain and processes of chronic disease. - Continue BuSpar & duloxetine (7) Colitis: Noted on CT scan abdomen/pelvis on 03/31. She has no abdominal pain, no fever, no diarrhea. Could be a stercoral colitis presumed secondary to constipation. - No antibiotics indicated at this time (8) Prediabetes: Has a history of prediabetes, is not on medication. - Monitor AM labs while on steroids -> 90 - 135. (9) Current smoker: - Encourage cessation - Continue nicotine patch as needed (10) DVT prophylaxis: Heparin 5000 units SQ Q12h Admission and Anticipated Discharge Date Admission Date: March 31, 2020 Subjective More tired today she reports. Just got pain meds. Did work with PT and had less pain in the left leg. Reports no fevers/chills, chest pain, shortness of breath, abdominal pain, nausea, or vomiting. Physical Exam Constitutional: WD/WN, vitals as above Eyes: EOM intact bilaterally; no conjunctival abnormality ENMT: external ear and nose normal, oropharynx normal Neck: trachea midline, no thyromegaly normal visual inspection Respiratory: normal respiratory effort, lungs clear to auscultation no respiratory distress Cardiovascular: RRR, no murmur, no edema Gastrointestinal (Abdomen): Inspection/Auscultation: abdomen normal to inspection; abdomen not distended Musculoskeletal: no cyanosis or clubbing, extremities motor strength 5/5 Skin: no rashes, warm and dry Neurologic: moves all extremities and awake Psychiatric: Orientation: alert, oriented to person and cooperative Results & Data Results & Data ([facility]) Vital Signs (Past 12 Hours) Vital Signs Temp Pulse Resp BP Pulse Ox 04/07/20 08:07 36.5 C 64 18 104/61 96 PG Care Time/CCT Total # of Minutes Spent Total Time Spent with Patient: Total time spent is greater than 50% in co ordination of care (as documented) at patient's floor/unit and/or counseling patient: Coding Level of Care Code 17646 Subseq Hosp Care Lvl 3 Diagnoses KWAME (acute kidney injury) N17.9 Chronic back pain M54.42; G89.29 Back pain location: low back pain Back pain laterality: bilateral Sciatica presence: with sciatica Sciatica laterality: sciatica of left side Hypertension I10 Hypertension type: essential hypertension Leukocytosis, unspecified D72.829 Leukocytosis type: unspecified COPD with emphysema J43.9 Emphysema type: unspecified Anxiety and depression F41.9; F32.9 Colitis K52.9 Prediabetes R73.03 Current smoker F17.200 DVT prophylaxis Z29.9 (1) Chronic back pain Back pain location: low back pain Back pain laterality: bilateral Sciatica presence: with sciatica Sciatica laterality: sciatica of left side Qualified Code(s): M54.42 - Lumbago with sciatica, left side; G89.29 - Other chronic pain (2) Hypertension Hypertension type: essential hypertension Qualified Code(s): I10 - Essential (primary) hypertension (3) Leukocytosis, unspecified Leukocytosis type: unspecified Qualified Code(s): D72.829 - Elevated white blood cell count, unspecified (4) COPD with emphysema Emphysema type: unspecified Qualified Code(s): J43.9 - Emphysema, unspecified
[2020-04-07] MEDS ORDERED: SODIUM CHLORIDE 0.45 % 1,000 ML IV SCH (13:15)
[2020-04-07 20:06] LABS: BUN Creatinine Ratio 41.2 (10-20); Calcium 9.5 mg/dl (8.5-10.1); Creatinine Clr Calc Pharmacy 31.7 ml/min; Est GFR (African American) 38.3; Est GFR (Non-African American) 33.1; Potassium 6.2 mmol/L (3.5-5.1)
[2020-04-07] MEDS: DOCUSATE SODIUM/SENNA 50/8.6MG TAB PO SCH (20:22)
[2020-04-07] MEDS ORDERED: SODIUM CHLORIDE 0.9% 1000ML 1,000 ML IV SCH (20:45)
[2020-04-07 21:55] LABS: BUN Creatinine Ratio 39.7 (10-20); Calcium 9.8 mg/dl (8.5-10.1); Creatinine Clr Calc Pharmacy 31.5 ml/min; Est GFR (Non-African American) 32.8; Potassium 5.6 mmol/L (3.5-5.1)
--- NOTE | 2020-04-08 03:11 | Communication Note ---
Date of Service: April 08, 2020 Night team paged regarding patient's rising potassium level. BMP indicated K was 6.2, up from 5.4. Na level low at 133. Cr 1.67, up from 1.54. BUN at 61. Of note, patient had 1/2 normal saline running at the time. EKG obtained showed no findings consistent with hyperkalemia. Fluids changed from 1/2 normal to normal saline at same maintenance rate. Repeat BMP overnight showed K level at 5.6, Na of 134. Cr 1.50.
[2020-04-08 05:57] LABS: Hematocrit (blood only) 32.9 % (37-47); Hemoglobin 11.1 g/dL (12.0-16.0); Mean Corpuscular Hemoglobin 30.8 pg (25-34); Mean Corpuscular Hgb Conc 33.7 g/dL (32-36); Mean Corpuscular Volume 91.4 fL (80-100); Mean Platelet Volume 9.7 fL (7.4-10.4); Platelet Count 236 K/uL (130-400); RDW Coefficient of Variation 13.9 % (11.5-14.5); RDW Standard Deviation 46.8 fL (36.4-46.3); White Blood Count 15.29 K/uL (4.8-10.8)
[2020-04-08 06:29] LABS: BUN Creatinine Ratio 42.7 (10-20); Calcium 9.2 mg/dl (8.5-10.1); Creatinine Clr Calc Pharmacy 40.7 ml/min; Est GFR (African American) 51.9; Est GFR (Non-African American) 44.7; Magnesium 2.6 mg/dl (1.8-2.4); Potassium 5.3 mmol/L (3.5-5.1)
--- NOTE | 2020-04-08 07:15 | Orthopedic Progress Note ---
Date of Service April 08, 2020 Assessment & Plan (1) Lumbar disc herniation with radiculopathy: At this point the patient is improving. Our plan is to get her home today. As long as she clears physical therapy they deem her safe for home discharge she may be discharged home. I reviewed the patient's restrictions. We will discontinue her drain and change her dressing prior to discharge. And will see her in the office in approximately 2 weeks for her routine postop care. Admission and Anticipated Discharge Date Admission Date: March 31, 2020 Subjective Patient was seen bedside in room 352. She states that she is doing well today. She has minimal pain. When she gets up and walks the pain is noticeable. Majority of the pain is in the back itself. She has minimal leg pain. She has been up and ambulating with therapy using a walker. She denies any other numbness, tingling, or paresthesias. Physical Exam Physical Exam: On exam she is alert and oriented. Her lower extremity motor exam reveals no focal atrophy. Her strength is 5 out of 5 throughout with some mild weakness in the left quadricep. Sensations intact to light touch. Her dressing is clean dry and intact. Her LIS drain is intact and holding suction. She had 30 cc out on the last shift and 5 on the previous. Results & Data ([facility]) Vital Signs (Past 12 Hours) Vital Signs Temp Pulse Resp BP Pulse Ox 04/08/20 00:28 36.7 C 77 15 113/67 92
[2020-04-08] MEDS: HEPARIN SOD 5,000 UNIT/0.5 ML VIAL SQ SCH ×2 (08:30→20:26)
[2020-04-08] MEDS: busPIRone 15 MG TAB PO SCH ×2 (08:30→20:26)
[2020-04-08] MEDS: CHOLECALCIFEROL 1,000 UNITS 25 MCG TAB PO SCH (08:30)
[2020-04-08] MEDS: GABAPENTIN 600 MG TAB PO SCH ×3 (08:30→20:26)
[2020-04-08] MEDS: amLODIPine BESYLATE 5 MG TAB PO SCH (08:30)
[2020-04-08] MEDS: DEXAMETHASONE SOD PHOSPHATE 8 MG in SYRINGE 0 ML IV SCH (08:30)
[2020-04-08] MEDS: DULoxetine HCL 30 MG CAP PO SCH (08:30)
[2020-04-08] MEDS: PANTOprazole 40 MG TAB PO SCH (08:30)
[2020-04-08] MEDS: CEROVITE ADV FORMULA TAB PO SCH (08:30)
[2020-04-08] MEDS: FLUTICASONE/VILANTEROL 200/25MCG 14 PUFFS/INHALER INH SCH (08:31)
[2020-04-08] MEDS: UMECLIDINIUM BROMIDE 62.5MCG/BLISTER 7 PUFFS/INHALER INH SCH (08:31)
--- NOTE | 2020-04-08 11:13 | Electrocardiogram Report ---
Test Reason : Blood Pressure : / mmHG Vent. Rate : 079 BPM Atrial Rate : 052 BPM P-R Int : 000 ms QRS Dur : 080 ms QT Int : 346 ms P-R-T Axes : 000 049 074 degrees QTc Int : 396 ms Poor data quality, interpretation may be adversely affected Normal sinus rhythm with frequent PAC's Nonspecific ST and T wave abnormality Abnormal ECG When compared with ECG of 31-MAR-2020 12:28, No significant change was found Confirmed by Sid Lewis ([id number] on 04/08/2020 11:13:31 AM Referred By: REFERRED SELF Confirmed By:Sid Lewis
--- NOTE | 2020-04-08 14:13 | Hospitalist Progress Note ---
Date of Service April 08, 2020 Assessment & Plan (1) Chronic back pain: Patient with long standing history of back pain and therapeutic options. S/P lumbar decompression and fusion - Acute on chronic pain with sciatica to knee of left leg. CT lumbar spine shows suspected severe central canal stenosis at L4-L5 and at least moderate central canal stenosis at L3-L4 -Unable to walk at home and lives alone prior to surgery. Failed outpatient course of p.o. prednisone 10 mg twice daily along with p.o. oxycodone at home -methylprednisolone 60 mg IV twice daily. will discontinue. - Increased Gabapentin to 600 three times daily from 600/300/600mg -IV Dilaudid for uncontrolled pain - Pain goal that is tolerable for the patient is 7-8/10 - Orthopaedic consult - Continue home adjuvant therapies - PT and OT consults - Fall precautions, assist with OOB and ambulation - Some improvement today, though still weak. Planning to go to rehab now given not enough support at home for safety. (2) KWAME (acute kidney injury): Baseline Cr ~1.0, eGFR 55. - Cr up to 1.7 on 04/07, looks pre-renal from BUN:Cr ratio. - Got IV fluids and held lisinopril & spironolactone - Returned to 1.16 on 04/08. K still 5.3. Monitor. (3) Hypertension: BP is 130/85 today. Patient appears well-controlled. - Continue home amlodipine - Holding lisinopril & spironolactone for KWAME (4) Leukocytosis, unspecified: Leukocytosis attributed to outpatient steroids at this time. No focal signs of infection. UA was contaminated and patient is asymptomatic. 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 No wheezing or shortness of breath today. - Continue home inhalers - Nicotine patch PRN (6) Anxiety and depression: Related to chronic pain and processes of chronic disease. - Continue BuSpar & duloxetine (7) Colitis: Noted on CT scan abdomen/pelvis on 03/31. She has no abdominal pain, no fever, no diarrhea. Could be a stercoral colitis presumed secondary to constipation. - No antibiotics indicated at this time (8) Prediabetes: Has a history of prediabetes, is not on medication. - Monitor AM labs while on steroids -> 90 - 135. (9) Current smoker: - Encourage cessation - Continue nicotine patch as needed (10) DVT prophylaxis: Heparin 5000 units SQ Q12h Admission and Anticipated Discharge Date Admission Date: March 31, 2020 Subjective Feeling a lot better today. Less pain in the leg. More movement. Reports no fevers/chills, chest pain, shortness of breath, abdominal pain, nausea, or vomiting. Physical Exam Constitutional: WD/WN, vitals as above Eyes: EOM intact bilaterally; no conjunctival abnormality ENMT: external ear and nose normal, oropharynx normal Neck: trachea midline, no thyromegaly normal visual inspection Respiratory: normal respiratory effort, lungs clear to auscultation no respiratory distress Cardiovascular: RRR, no murmur, no edema Gastrointestinal (Abdomen): Inspection/Auscultation: abdomen normal to inspection; abdomen not distended Musculoskeletal: no cyanosis or clubbing, extremities motor strength 5/5 Skin: no rashes, warm and dry Neurologic: moves all extremities and awake Psychiatric: Orientation: alert, oriented to person and cooperative Results & Data Results & Data ([facility]) Vital Signs (Past 12 Hours) Vital Signs Temp Pulse Resp BP Pulse Ox 04/08/20 08:22 36.7 C 75 16 128/84 95 PG Care Time/CCT Total # of Minutes Spent Total Time Spent with Patient: Total time spent is greater than 50% in coordination of care (as documented) at patient's floor/unit and/or counseling patient: Coding Level of Care Code 83261 Subseq Hosp Care Lvl 2 Diagnoses Chronic back pain M54.42; G89.29 Back pain location: low back pain Back pain laterality: bilateral Sciatica presence: with sciatica Sciatica laterality: sciatica of left side KWAME (acute kidney injury) N17.9 Hypertension I10 Hypertension type: essential hypertension Leukocytosis, unspecified D72.829 Leukocytosis type: unspecified COPD with emphysema J43.9 Emphysema type: unspecified Anxiety and depression F41.9; F32.9 Colitis K52.9 Prediabetes R73.03 Current smoker F17.200 DVT prophylaxis Z29.9 (1) Chronic back pain Back pain location: low back pain Back pain laterality: bilateral Sciatica presence: with sciatica Sciatica laterality: sciatica of left side Qualified Code(s): M54.42 - Lumbago with sciatica, left side; G89.29 - Other chronic pain (2) Hypertension Hypertension type: essential hypertension Qualified Code(s): I10 - Essential (primary) hypertension (3) Leukocytosis, unspecified Leukocytosis type: unspecified Qualified Code(s): D72.829 - Elevated white blood cell count, unspecified (4) COPD with emphysema Emphysema type: unspecified Qualified Code(s): J43.9 - Emphysema, unspecified
[2020-04-08] MEDS: DOCUSATE SODIUM/SENNA 50/8.6MG TAB PO SCH (20:26)
[2020-04-09] MEDS: oxyCODONE HCL IR 5 MG TAB (IMMEDIATE RELEASE) PO PRN (06:01)
[2020-04-09 06:35] LABS: Hemoglobin 11.8 g/dL (12.0-16.0); Mean Corpuscular Hemoglobin 30.6 pg (25-34); Mean Corpuscular Hgb Conc 33.7 g/dL (32-36); Mean Corpuscular Volume 90.7 fL (80-100); Mean Platelet Volume 9.8 fL (7.4-10.4); Platelet Count 240 K/uL (130-400); RDW Coefficient of Variation 13.9 % (11.5-14.5); RDW Standard Deviation 45.9 fL (36.4-46.3); Red Blood Count 3.86 M/uL (4.2-5.4); White Blood Count 15.58 K/uL (4.8-10.8)
[2020-04-09 07:25] LABS: BUN Creatinine Ratio 41.4 (10-20); Calcium 9.2 mg/dl (8.5-10.1); Creatinine Clr Calc Pharmacy 56.3 ml/min; Est GFR (African American) 76.6; Est GFR (Non-African American) 66.1; Potassium 4.9 mmol/L (3.5-5.1)
[2020-04-09] MEDS: PANTOprazole 40 MG TAB PO SCH (08:33)
[2020-04-09] MEDS: amLODIPine BESYLATE 5 MG TAB PO SCH (08:33)
[2020-04-09] MEDS: CHOLECALCIFEROL 1,000 UNITS 25 MCG TAB PO SCH (08:33)
[2020-04-09] MEDS: CEROVITE ADV FORMULA TAB PO SCH (08:34)
[2020-04-09] MEDS: GABAPENTIN 600 MG TAB PO SCH ×3 (08:34→20:52)
[2020-04-09] MEDS: busPIRone 15 MG TAB PO SCH ×2 (08:34→20:52)
[2020-04-09] MEDS: DULoxetine HCL 30 MG CAP PO SCH (08:35)
[2020-04-09] MEDS: UMECLIDINIUM BROMIDE 62.5MCG/BLISTER 7 PUFFS/INHALER INH SCH (08:35)
[2020-04-09] MEDS: FLUTICASONE/VILANTEROL 200/25MCG 14 PUFFS/INHALER INH SCH (08:35)
[2020-04-09] MEDS: DEXAMETHASONE SOD PHOSPHATE 8 MG in SYRINGE 0 ML IV SCH (08:35)
[2020-04-09] MEDS: HEPARIN SOD 5,000 UNIT/0.5 ML VIAL SQ SCH ×2 (08:36→20:53)
--- NOTE | 2020-04-09 10:17 | Orthopedic Progress Note ---
Date of Service April 09, 2020 Assessment & Plan (1) Lumbar disc herniation with radiculopathy: Admission and Anticipated Discharge Date Admission Date: March 31, 2020 At this time we will continue physical therapy and discharged to rehab when bed available. Subjective Patient's back pain is controlled she has no leg pain. She is tolerating physical therapy. Physical Exam Physical Exam: On exam she still demonstrates significant deficits to the left quadricep. Otherwise is comfortable and good strength testing elsewhere. Results & Data ([facility]) Vital Signs (Past 12 Hours) Vital Signs Temp Pulse Resp BP Pulse Ox 04/09/20 07:21 36.5 C 79 16 124/72 93 04/08/20 23:58 36.9 C 79 20 122/70 98
--- NOTE | 2020-04-09 15:45 | Hospitalist Progress Note ---
Date of Service April 09, 2020 Assessment & Plan (1) Chronic back pain: Patient with long standing history of back pain and therapeutic options. S/P lumbar decompression and fusion - Acute on chronic pain with sciatica to knee of left leg. CT lumbar spine shows suspected severe central canal stenosis at L4-L5 and at least moderate central canal stenosis at L3-L4 -Unable to walk at home and lives alone prior to surgery. Failed outpatient course of p.o. prednisone 10 mg twice daily along with p.o. oxycodone at home -methylprednisolone 60 mg IV twice daily. will discontinue. - Increased Gabapentin to 600 three times daily from 600/300/600mg -IV Dilaudid for uncontrolled pain - Pain goal that is tolerable for the patient is 7-10/23 - Orthopaedic consult - Continue home adjuvant therapies - PT and OT consults - Fall precautions, assist with OOB and ambulation - Some improvement today, though still weak. Planning to go to rehab now given not enough support at home for safety. Stable today. (2) KWAME (acute kidney injury): Baseline Cr ~1.0, eGFR 55. - Cr up to 1.7 on 04/07, looks pre-renal from BUN:Cr ratio. - Got IV fluids and held lisinopril & spironolactone - Returned to 0.84 on 04/09. (3) Hypertension: BP is 120/75 today. Patient appears well-controlled. - Continue home amlodipine - Holding lisinopril & spironolactone for KWAME (4) Leukocytosis, unspecified: Leukocytosis attributed to outpatient steroids at this time. No focal signs of infection. UA was contaminated and patient is asymptomatic. 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 No wheezing or shortness of breath today. - Continue home inhalers - Nicotine patch PRN (6) Anxiety and depression: Related to chronic pain and processes of chronic disease. - Continue BuSpar & duloxetine (7) Colitis: Noted on CT scan abdomen/pelvis on 03/31. She has no abdominal pain, no fever, no diarrhea. Could be a stercoral colitis presumed secondary to constipation. - No antibiotics indicated at this time (8) Prediabetes: Has a history of prediabetes, is not on medication. - Monitor AM labs while on steroids -> 90 - 135. (9) Current smoker: - Encourage cessation - Continue nicotine patch as needed (10) DVT prophylaxis: Heparin 5000 units SQ Q12h Admission and Anticipated Discharge Date Admission Date: March 31, 2020 Subjective Somewhat downcast today. She doesn't really want to go rehab, but understands she might need to. Reports no fevers/chills, chest pain, shortness of breath, abdominal pain, nausea, or vomiting. Physical Exam Constitutional: WD/WN, vitals as above Eyes: EOM intact bilaterally; no conjunctival abnormality ENMT: external ear and nose normal, oropharynx normal Neck: trachea midline, no thyromegaly normal visual inspection Respiratory: normal respiratory effort, lungs clear to auscultation no respiratory distress Cardiovascular: RRR, no murmur, no edema Gastrointestinal (Abdomen): Inspection/Auscultation: abdomen normal to inspection; abdomen not distended Musculoskeletal: no cyanosis or clubbing, extremities motor strength 5/5 Skin: no rashes, warm and dry Neurologic: moves all extremities and awake Psychiatric: Orientation: alert, oriented to person and cooperative Results & Data Results & Data ([facility]) Vital Signs (Past 12 Hours) Vital Signs Temp Pulse Resp BP Pulse Ox 04/09/20 15:00 37 C 82 16 117/73 91 04/09/20 07:21 36.5 C 79 16 124/72 93 PG Care Time/CCT Total # of Minutes Spent Total Time Spent with Patient: Total time spent is greater than 50% in coordination of care (as documented) at patient's floor/unit and/or counseling patient: Coding Level of Care Code 27809 Subseq Hosp Care Lvl 2 Diagnoses Chronic back pain M54.42; G89.29 Back pain laterality: bilateral Back pain location: low back pain Sciatica laterality: sciatica of left side Sciatica presence: with sciatica KWAME (acute kidney injury) N17.9 Hypertension I10 Hypertension type: essential hypertension Leukocytosis, unspecified D72.829 Leukocytosis type: unspecified COPD with emphysema J43.9 Emphysema type: unspecified Anxiety and depression F41.9; F32.9 Colitis K52.9 Prediabetes R73.03 Current smoker F17.200 DVT prophylaxis Z29.9 (1) Leukocytosis, unspecified Leukocytosis type: unspecified Qualified Code(s): D72.829 - Elevated white blood cell count, unspecified (2) COPD with emphysema Emphysema type: unspecified Qualified Code(s): J43.9 - Emphysema, unspecified (3) Chronic back pain Back pain laterality: bilateral Back pain location: low back pain Sciatica laterality: sciatica of left side Sciatica presence: with sciatica Qualified Code(s): M54.42 - Lumbago with sciatica, left side; G89.29 - Other chronic pain (4) Hypertension Hypertension type: essential hypertension Qualified Code(s): I10 - Essential (primary) hypertension
[2020-04-09] MEDS: HYDROmorphone INJ 1 MG/ML SYRINGE IV PRN (16:05)
[2020-04-09] MEDS: DOCUSATE SODIUM/SENNA 50/8.6MG TAB PO SCH (20:54)
[2020-04-10 06:36] LABS: Hematocrit (blood only) 35.8 % (37-47); Mean Corpuscular Hemoglobin 30.4 pg (25-34); Mean Corpuscular Hgb Conc 33.5 g/dL (32-36); Mean Corpuscular Volume 90.6 fL (80-100); Mean Platelet Volume 9.6 fL (7.4-10.4); Platelet Count 258 K/uL (130-400); RDW Coefficient of Variation 13.7 % (11.5-14.5); RDW Standard Deviation 45.2 fL (36.4-46.3); Red Blood Count 3.95 M/uL (4.2-5.4); White Blood Count 20.15 K/uL (4.8-10.8)
[2020-04-10 07:04] LABS: BUN Creatinine Ratio 35.3 (10-20); Calcium 9.7 mg/dl (8.5-10.1); Creatinine Clr Calc Pharmacy 50.8 ml/min; Est GFR (African American) 67.7; Est GFR (Non-African American) 58.5; Potassium 4.8 mmol/L (3.5-5.1)
[2020-04-10] MEDS: FLUTICASONE/VILANTEROL 200/25MCG 14 PUFFS/INHALER INH SCH (08:55)
[2020-04-10] MEDS: PANTOprazole 40 MG TAB PO SCH (08:56)
[2020-04-10] MEDS: DULoxetine HCL 30 MG CAP PO SCH (08:56)
[2020-04-10] MEDS: CHOLECALCIFEROL 1,000 UNITS 25 MCG TAB PO SCH (08:56)
[2020-04-10] MEDS: UMECLIDINIUM BROMIDE 62.5MCG/BLISTER 7 PUFFS/INHALER INH SCH (08:56)
[2020-04-10] MEDS: CEROVITE ADV FORMULA TAB PO SCH (08:57)
[2020-04-10] MEDS: HEPARIN SOD 5,000 UNIT/0.5 ML VIAL SQ SCH ×2 (08:57→21:07)
[2020-04-10] MEDS: DEXAMETHASONE SOD PHOSPHATE 8 MG in SYRINGE 0 ML IV SCH (08:57)
[2020-04-10] MEDS: GABAPENTIN 600 MG TAB PO SCH ×3 (08:58→21:07)
[2020-04-10] MEDS: amLODIPine BESYLATE 5 MG TAB PO SCH (08:58)
[2020-04-10] MEDS: busPIRone 15 MG TAB PO SCH ×2 (08:59→21:07)
--- NOTE | 2020-04-10 09:42 | Orthopedic Progress Note ---
Date of Service April 10, 2020 Assessment & Plan (1) Lumbar disc herniation with radiculopathy: Admission and Anticipated Discharge Date Admission Date: March 31, 2020 This time we will continue physical therapy and await bed availability for rehab. She is okay for discharge per Ortho. Subjective Back pain is stable. Leg symptoms steadily improving. Physical Exam Physical Exam: Patient still has quad deficit on the left but it is very mobile otherwise. Results & Data ([facility]) Vital Signs (Past 12 Hours) Vital Signs Temp Pulse Pulse Resp BP Pulse Ox 04/10/20 07:19 36.8 C 71 18 134/85 94 04/09/20 23:20 36.8 C 82 14 145/88 H 93
[2020-04-10] MEDS: HYDROmorphone INJ 0.5 MG/0.5 ML SYR IV PRN ×2 (09:52→23:32)
[2020-04-10] MEDS: oxyCODONE HCL IR 5 MG TAB (IMMEDIATE RELEASE) PO PRN (10:52)
--- NOTE | 2020-04-10 15:54 | Hospitalist Progress Note ---
Date of Service April 10, 2020 Assessment & Plan (1) Chronic back pain: Patient with long standing history of back pain and therapeutic options. S/P lumbar decompression and fusion - Acute on chronic pain with sciatica to knee of left leg. CT lumbar spine shows suspected severe central canal stenosis at L4-L5 and at least moderate central canal stenosis at L3-L4 -Unable to walk at home and lives alone prior to surgery. Failed outpatient course of p.o. prednisone 10 mg twice daily along with p.o. oxycodone at home -methylprednisolone 60 mg IV twice daily. will discontinue. - Increased Gabapentin to 600 three times daily from 600/300/600mg -IV Dilaudid for uncontrolled pain - Pain goal that is tolerable for the patient is 7-8/10 - Orthopaedic consult - Continue home adjuvant therapies - PT and OT consults - Fall precautions, assist with OOB and ambulation - Some improvement today, though still weak. Planning to go to rehab now given not enough support at home for safety. Stable today. Hopefully insurance auth tomorrow. (2) Leukocytosis, unspecified: Leukocytosis attributed to outpatient steroids at this time. No focal signs of infection. UA was contaminated and patient is asymptomatic. - Monitor - Jumped on 04/10 to 20. Still no focal sign of infection. Orthopedics stopped steroids today, so will monitor and hopefully decline tomorrow. (3) KWAME (acute kidney injury): Baseline Cr ~1.0, eGFR 55. - Cr up to 1.7 on 04/07, looks pre-renal from BUN:Cr ratio. - Got IV fluids and held lisinopril & spironolactone - Returned to 0.93 on 04/10. (4) Hypertension: BP is 125/75 today. Patient appears well-controlled. - Continue home amlodipine - Holding lisinopril & spironolactone for KWAME -> On discharge, can likely just go with lisinopril given she had hyperkalemia. 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 No wheezing or shortness of breath today. - Continue home inhalers - Nicotine patch PRN (6) Anxiety and depression: Related to chronic pain and processes of chronic disease. - Continue BuSpar & duloxetine (7) Colitis: Noted on CT scan abdomen/pelvis on 03/31. She has no abdominal pain, no fever, no diarrhea. Could be a stercoral colitis presumed secondary to constipat ion. - No antibiotics indicated at this time (8) Prediabetes: Has a history of prediabetes, is not on medication. - Monitor AM labs while on steroids -> 90 - 135. (9) Current smoker: - Encourage cessation - Continue nicotine patch as needed (10) DVT prophylaxis: Heparin 5000 units SQ Q12h Admission and Anticipated Discharge Date Admission Date: March 31, 2020 Subjective No major changes today. Feels very unhappy about having to go to rehab. Reports no fevers/chills, chest pain, shortness of breath, abdominal pain, nausea, or vomiting. Physical Exam Constitutional: WD/WN, vitals as above Eyes: EOM intact bilaterally; no conjunctival abnormality ENMT: external ear and nose normal, oropharynx normal Neck: trachea midline, no thyromegaly normal visual inspection Respiratory: normal respiratory effort, lungs clear to auscultation no respiratory distress Cardiovascular: RRR, no murmur, no edema Gastrointestinal (Abdomen): Inspection/Auscultation: abdomen normal to inspection; abdomen not distended Musculoskeletal: no cyanosis or clubbing, extremities motor strength 5/5 Skin: no rashes, warm and dry Neurologic: moves all extremities and awake Psychiatric: Orientation: alert, oriented to person and cooperative Results & Data Results & Data ([facility]) Vital Signs (Past 12 Hours) Vital Signs Temp Pulse Pulse Resp BP Pulse Ox 04/10/20 15:20 36.7 C 89 17 125/77 92 04/10/20 07:19 36.8 C 71 18 134/85 94 PG Care Time/CCT Total # of Minutes Spent Total Time Spent with Patient: Total time spent is greater than 50% in coordination of care (as documented) at patient's floor/unit and/or counseling patient: Coding Level of Care Code 15257 Subseq Hosp Care Lvl 2 Diagnoses Chronic back pain M54.42; G89.29 Back pain location: low back pain Back pain laterality: bilateral Sciatica presence: with sciatica Sciatica laterality: sciatica of left side Leukocytosis, unspecified D72.829 Leukocytosis type: unspecified KWAME (acute kidney injury) N17.9 Hypertension I10 Hypertension type: essential hypertension COPD with emphysema J43.9 Emphysema type: unspecified Anxiety and depression F41.9; F32.9 Colitis K52.9 Prediabetes R73.03 Current smoker F17.200 DVT prophylaxis Z29.9 (1) Chronic back pain Back pain location: low back pain Back pain laterality: bilateral Sciatica presence: with sciatica Sciatica laterality: sciatica of left side Qualified Code(s): M54.42 - Lumbago with sciatica, left side; G89.29 - Other chronic pain (2) Hypertension Hypertension type: essential hypertension Qualified Code(s): I10 - Essential (primary) hypertension (3) Leukocytosis, unspecified Leukocytosis type: unspecified Qualified Code(s): D72.829 - Elevated white blood cell count, unspecified (4) COPD with emphysema Emphysema type: unspecified Qualified Code(s): J43.9 - Emphysema, unspecified
[2020-04-10] MEDS: HYDROmorphone INJ 1 MG/ML SYRINGE IV PRN (17:26)
[2020-04-10] MEDS: DOCUSATE SODIUM/SENNA 50/8.6MG TAB PO SCH (21:08)
[2020-04-11 07:31] LABS: Hematocrit (blood only) 34.9 % (37-47); Hemoglobin 12.3 g/dL (12.0-16.0); Mean Corpuscular Hemoglobin 31.9 pg (25-34); Mean Corpuscular Hgb Conc 35.2 g/dL (32-36); Mean Corpuscular Volume 90.4 fL (80-100); Mean Platelet Volume 9.1 fL (7.4-10.4); Platelet Count 285 K/uL (130-400); RDW Coefficient of Variation 13.8 % (11.5-14.5); RDW Standard Deviation 45.5 fL (36.4-46.3); Red Blood Count 3.86 M/uL (4.2-5.4); White Blood Count 22.35 K/uL (4.8-10.8)
[2020-04-11 08:05] LABS: BUN Creatinine Ratio 31.8 (10-20); Calcium 9.7 mg/dl (8.5-10.1); Creatinine Clr Calc Pharmacy 46.8 ml/min; Est GFR (African American) 61.3; Est GFR (Non-African American) 52.9; Potassium 4.8 mmol/L (3.5-5.1)
[2020-04-11] MEDS: CHOLECALCIFEROL 1,000 UNITS 25 MCG TAB PO SCH (08:16)
[2020-04-11] MEDS: amLODIPine BESYLATE 5 MG TAB PO SCH (08:17)
[2020-04-11] MEDS: DULoxetine HCL 30 MG CAP PO SCH (08:17)
[2020-04-11] MEDS: CEROVITE ADV FORMULA TAB PO SCH (08:17)
[2020-04-11] MEDS: busPIRone 15 MG TAB PO SCH ×2 (08:17→21:34)
[2020-04-11] MEDS: GABAPENTIN 600 MG TAB PO SCH ×3 (08:17→21:33)
[2020-04-11] MEDS: UMECLIDINIUM BROMIDE 62.5MCG/BLISTER 7 PUFFS/INHALER INH SCH (08:18)
[2020-04-11] MEDS: FLUTICASONE/VILANTEROL 200/25MCG 14 PUFFS/INHALER INH SCH (08:18)
[2020-04-11] MEDS: PANTOprazole 40 MG TAB PO SCH (08:18)
[2020-04-11] MEDS: HEPARIN SOD 5,000 UNIT/0.5 ML VIAL SQ SCH ×2 (08:19→21:34)
--- NOTE | 2020-04-11 13:25 | Hospitalist Progress Note ---
Date of Service April 11, 2020 Assessment & Plan (1) Chronic back pain: Patient with long standing history of back pain and therapeutic options. S/P lumbar decompression and fusion - Acute on chronic pain with sciatica to knee of left leg. CT lumbar spine shows suspected severe central canal stenosis at L4-L5 and at least moderate central canal stenosis at L3-L4 -Unable to walk at home and lives alone prior to surgery. Failed outpatient course of p.o. prednisone 10 mg twice daily along with p.o. oxycodone at home -methylprednisolone 60 mg IV twice daily. will discontinue. - Increased Gabapentin to 600 three times daily from 600/300/600mg -IV Dilaudid for uncontrolled pain - Pain goal that is tolerable for the patient is 7-10/23 - Orthopaedic consult - Continue home adjuvant therapies - PT and OT consults - Fall precautions, assist with OOB and ambulation - She is able to ambulate however, she is having some more pain today. . Planning to go to rehab now given not enough support at home for safety. Stable today. Hopefully bed is available tomorrow. WBC is elevated likely due to steroids (2) Leukocytosis, unspecified: Leukocytosis attributed to outpatient steroids at this time. No focal signs of infection. UA was contaminated and patient is asymptomatic. - Monitor - Jumped on 04/10 to 20. Still no focal sign of infection. Orthopedics stopped steroids today, so will monitor and hopefully decline tomorrow. (3) KWAME (acute kidney injury): Baseline Cr ~1.0, eGFR 55. - Cr up to 1.7 on 04/07, looks pre-renal from BUN:Cr ratio. - Got IV fluids and held lisinopril & spironolactone - Returned to 0.93 on 04/10. (4) Hypertension: BP is 125/75 today. Patient appears well-controlled. - Continue home amlodipine - Holding lisinopril & spironolactone for KWAME -> On discharge, can likely just go with lisinopril given she had hyperkalemia. 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 No wheezing or shortness of breath today. - Continue home inhalers - Nicotine patch PRN (6) Anxiety and depression: Related to chronic pain and processes of chronic disease. - Continue BuSpar & duloxetine (7) Colitis: Noted on CT scan abdomen/pelvis on 03/31. She has no abdominal pain, no fever, no diarrhea. Could be a stercoral colitis presumed secondary to constipation. - No antibiotics indicated at this time (8) Prediabetes: Has a history of prediabetes, is not on medication. - Monitor AM labs while on steroids -> 90 - 135. (9) Current smoker: - Encourage cessation - Continue nicotine patch as needed (10) DVT prophylaxis: Heparin 5000 units SQ Q12h Admission and Anticipated Discharge Date Admission Date: March 31, 2020 Subjective Patient reportshaving more pain in her lower extremities today as compared to the days prior. Her pain is mild-moderate in intensity dull and is located over the lateral side of her Left thigh. Review of Systems Review of Systems: All systems reviewed & are unremarkable except as noted in HPI & below Physical Exam Physical Exam: Constitutional: WD/WN, vitals as above Eyes: EOM intact bilaterally; no conjunctival abnormality ENMT: external ear and nose normal, oropharynx normal Neck: trachea midline, no thyromegaly normal visual inspection Respiratory: normal respiratory effort, lungs clear to auscultation no respiratory distress Cardiovascular: RRR, no murmur, no edema Gastrointestinal (Abdomen): Inspection/Auscultation: abdomen normal to inspection; abdomen not distended Musculoskeletal: no cyanosis or clubbing, extremities motor strength 5/5, tenderness over IT band of left thigh Skin: no rashes, warm and dry Neurologic: moves all extremities and awake Psychiatric: Orientation: alert, oriented to person and cooperative Results & Data Results & Data ([facility]) Vital Signs (Past 12 Hours) Vital Signs Temp Pulse Resp BP Pulse Ox 04/11/20 07:39 36.7 C 78 19 113/72 95 PG Care Time/CCT Total # of Minutes Spent Total Time Spent with Patient: Total time spent is greater than 50% in coordination of care (as documented) at patient's floor/unit and/or counseling patient: Coding Level of Care Code 30651 Subseq Hosp Care Lvl 3 Diagnoses Chronic back pain M54.42; G89.29 Back pain location: low back pain Back pain laterality: bilateral Sciatica presence: with sciatica Sciatica laterality: sciatica of left side Leukocytosis, unspecified D72.829 Leukocytosis type: unspecified KWAME (acute kidney injury) N17.9 Hypertension I10 Hypertension type: essential hypertension COPD with emphysema J43.9 Emphysema type: unspecified Anxiety and depression F41.9; F32.9 Colitis K52.9 Prediabetes R73.03 Current smoker F17.200 DVT prophylaxis Z29.9 Time Spent (min) 35 Comment chart review (1) Chronic back pain Back pain location: low back pain Back pain laterality: bilateral Sciatica presence: with sciatica Sciatica laterality: sciatica of left side Qualified Code(s): M54.42 - Lumbago with sciatica, left side; G89.29 - Other chronic pain (2) Leukocytosis, unspecified Leukocytosis type: unspecified Qualified Code(s): D72.829 - Elevated white blood cell count, unspecified (3) Hypertension Hypertension type: essential hypertension Qualified Code(s): I10 - Essential (primary) hypertension (4) COPD with emphysema Emphysema type: unspecified Qualified Code(s): J43.9 - Emphysema, unspecified
[2020-04-11] MEDS: HYDROmorphone INJ 1 MG/ML SYRINGE IV PRN ×2 (15:50→23:39)
[2020-04-11] MEDS: oxyCODONE HCL IR 5 MG TAB (IMMEDIATE RELEASE) PO PRN (20:15)
[2020-04-11] MEDS: DOCUSATE SODIUM/SENNA 50/8.6MG TAB PO SCH (21:33)
[2020-04-12] MEDS: oxyCODONE HCL IR 5 MG TAB (IMMEDIATE RELEASE) PO PRN (06:18)
[2020-04-12 06:54] LABS: Hematocrit (blood only) 37.2 % (37-47); Hemoglobin 12.5 g/dL (12.0-16.0); Mean Corpuscular Hemoglobin 30.7 pg (25-34); Mean Corpuscular Hgb Conc 33.6 g/dL (32-36); Mean Corpuscular Volume 91.4 fL (80-100); Mean Platelet Volume 9.3 fL (7.4-10.4); Platelet Count 302 K/uL (130-400); RDW Coefficient of Variation 13.7 % (11.5-14.5); RDW Standard Deviation 45.6 fL (36.4-46.3); Red Blood Count 4.07 M/uL (4.2-5.4)
[2020-04-12] MEDS: FLUTICASONE/VILANTEROL 200/25MCG 14 PUFFS/INHALER INH SCH (08:47)
[2020-04-12] MEDS: HEPARIN SOD 5,000 UNIT/0.5 ML VIAL SQ SCH (08:48)
[2020-04-12] MEDS: UMECLIDINIUM BROMIDE 62.5MCG/BLISTER 7 PUFFS/INHALER INH SCH (08:49)
[2020-04-12] MEDS: GABAPENTIN 600 MG TAB PO SCH ×2 (08:49→12:16)
[2020-04-12] MEDS: CEROVITE ADV FORMULA TAB PO SCH (08:49)
[2020-04-12] MEDS: amLODIPine BESYLATE 5 MG TAB PO SCH (08:50)
[2020-04-12] MEDS: PANTOprazole 40 MG TAB PO SCH (08:50)
[2020-04-12] MEDS: CHOLECALCIFEROL 1,000 UNITS 25 MCG TAB PO SCH (08:50)
[2020-04-12] MEDS: busPIRone 15 MG TAB PO SCH (09:00)
[2020-04-12] MEDS: DULoxetine HCL 30 MG CAP PO SCH (09:28)
--- NOTE | 2020-04-12 10:24 | Orthopedic Progress Note ---
Date of Service April 12, 2020 Assessment & Plan (1) Lumbar disc herniation with radiculopathy: Admission and Anticipated Discharge Date Admission Date: March 31, 2020 This time we will continue physical therapy anticipate discharge today. Subjective Patient's back pain is controlled leg symptoms steadily improving. Physical Exam Physical Exam: On exam she does have weakness to left quadriceps but otherwise strength is intact. Appears comfortable. Dressing is clean dry and intact today. Results & Data ([facility]) Vital Signs (Past 12 Hours) Vital Signs Temp Pulse Resp BP Pulse Ox 04/12/20 07:51 36.5 C 81 16 136/82 93 04/11/20 22:31 36.9 C 84 18 118/75 92
--- NOTE | 2020-04-15 08:51 | Discharge Summary ---
Date of Service April 12, 2020 Admission HPI Per Admitting Provider 79-year-old female who presents to the emergency room for worsening back pain that started 9 days ago and has involvement radiating down her left lateral leg that extends to the knee. Patient is unsure of what exacerbated the pain and denies any trauma/activity/illness. Patient has a longstanding history of chronic back pain with laminectomy and persistent L5 radiculopathies, spinal stenosis and has most recently received an epidural injection in January. Patient has a past medical history of high blood pressure/prior history of breast malignancy/osteoporosis/abnormal cholesterol/chronic low back pain/COPD /smoker on home oxygen therapy and keratosis. The pain is more intense than the patient's normal. This is now more constant, sharp and stabbing in nature. As above the pain does radiate down her left leg and stops at the knee as and is associated with numbness and tingling. The pain is not associated with any weakness however it does limit her mobility and is associated with rest and activity but exacerbated with activity. She has been trying to crawl back and forth to the bathroom and minimize her movements. This has led to her decrease in p.o. intake of food and water and she is feeling more fatigued as well. The patient has been taking her normal outpatient medications for her pain and has been increased her amount of Advil and had a prescription for oxycodone and prednisone that was recently added ([id number]) which is not providing any benefit per the patient. Patient will be admitted for acute pain control, orthopedics consult, imaging performed in the emergency room, and will change steroids to IV. Patient did receive ceftriaxone in the emergency room for UA that is more consistent with contamination versus true cystitis. Add hydration and follow patient's symptom s. Principal Diagnosis chronic back pain Discharge Exam Constitutional: WD/WN, vitals as above Eyes: EOM intact bilaterally; no conjunctival abnormality ENMT: external ear and nose normal, oropharynx normal Neck: trachea midline, no thyromegaly normal visual inspection Respiratory: normal respiratory effort, lungs clear to auscultation no respiratory distress Cardiovascular: RRR, no murmur, no edema Gastrointestinal (Abdomen): Inspection/Auscultation: abdomen normal to inspect ion; abdomen not distended Musculoskeletal: no cyanosis or clubbing, extremities motor strength 5/5, tenderness over IT band of left thigh Skin: no rashes, warm and dry Neurologic: moves all extremities and awake Psychiatric: Orientation: alert, oriented to person and cooperative Discharge Data Allergies Allergy/AdvReac Type Severity Reaction Status Date / Time nitrofurantoin Allergy Severe SOB, Verified 04/14/20 13:25 [From Macrobid] nausea, vomiting penicillin V Allergy Unknown CAN'T Verified 04/14/20 13:25 REMEMBER REACTION atorvastatin AdvReac Intermediate muscle pain Verified 04/14/20 13:25 ciprofloxacin AdvReac Intermediate REDNESS Verified 04/14/20 13:25 ALONG VEIN simvastatin AdvReac Intermediate muscle pain Verified 04/14/20 13:25 Consultations 03/31/20 15:33 ED Decision to Admit Stat 03/31/20 19:45 Consult Orthopedic Surgery Routine 04/04/20 17:27 Consult Case Management - Discharge Planning Routine Procedures Performed Operation Date: 04/04/20 08:50 Actual Procedures p L3-S1 Lumbar Decompression and Fusion with bone morphogenic protein, interbody L3-L5, spinal cord monitoring - Jose Guaman DO Ordered Studies 03/31/20 12:21 CT abd pelvis wo con Stat CT lumbar spine wo con Stat 04/02/20 07:45 MR lumbar spine wo con Urgent 04/04/20 08:50 FL fluoroscopy <1hr Routine FL lumbar spine 2-3V Routine Hospital Course (1) Chronic back pain: Patient with long standing history of back pain and therapeutic options. S/P lumbar decompression and fusion - Acute on chronic pain with sciatica to knee of left leg. CT lumbar spine shows suspected severe central canal stenosis at L4-L5 and at least moderate central canal stenosis at L3-L4 -Unable to walk at home and lives alone prior to surgery. Failed outpatient course of p.o. prednisone 10 mg twice daily along with p.o. oxycodone at home -methylprednisolone 60 mg IV twice daily. will discontinue. - Increased Gabapentin to 600 three times daily from 600/300/600mg -IV Dilaudid for uncontrolled pain - Pain goal that is tolerable for the patient is 7-10/23 - Orthopaedic consult - Continue home adjuvant therapies - PT and OT consults - Fall precautions, assist with OOB and ambulation - She is able to ambulate however, she is having some more pain today. . Planning to go to rehab now given not enough support at home for safety. WBC is elevated likely due to steroids. Procal negative (2) Leukocytosis, unspecified: Leukocytosis attributed to outpatient steroids at this time. No focal signs of infection. UA was contaminated and patient is asymptomatic. - Monitor - Jumped on 04/10 to 20. Still no focal sign of infection. Orthopedics stopped steroids today, so will monitor and hopefully decline tomorrow. (3) KWAME (acute kidney injury): Baseline Cr ~1.0, eGFR 55. - Cr up to 1.7 on 04/07, looks pre-renal from BUN:Cr ratio. - Got IV fluids and held lisinopril & spironolactone - Returned to 0.93 on 04/10. (4) Hypertension: BP is 125/75 today. Patient appears well-controlled. - Continue home amlodipine - Holding lisinopril & spironolactone for KWAME -> On discharge, can likely just go with lisinopril given she had hyperkalemia. 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 No wheezing or shortness of breath today. - Continue home inhalers - Nicotine patch PRN (6) Anxiety and depression: Related to chronic pain and processes of chronic disease. - Continue BuSpar & duloxetine (7) Colitis: Noted on CT scan abdomen/pelvis on 03/31. She has no abdominal pain, no fever, no diarrhea. Could be a stercoral colitis presumed secondary to constipation. - No antibiotics indicated at this time (8) Prediabetes: Has a history of prediabetes, is not on medication. - Monitor AM labs while on steroids -> 90 - 135. (9) Current smoker: - Encourage cessation - Continue nicotine patch as needed (10) DVT prophylaxis: Heparin 5000 units SQ Q12h Total Time Total Time Spent Total Time Spent (In Minutes): 32 Total Time Includes: Examination of the Patient, Discharge Planning and Medication Reconciliation Discharge Plan Discharge Items Patient Disposition: Transfer Inpatient Rehab Fac Reason For Visit: Acute on chronic bakc pain, UTI Discharge Diagnosis: Lumbar spinal stenosis with neurogenic claudication and acute discrimination with neuro deficit Activity: As commented below Non-emergency contact: Primary Care Provider Call non-emergency contact if: you have any medication questions Follow-up/Referrals: Annette Dowd MD [Primary Care Provider] - Diet: Regular Addtl Attending Provider Instructions: Will decrease lisinopril to 20 mg PO daily. ACTIVITY RECOMMENDATIONS: SELF CARE INSTRUCTIONS AFTER THORACIC/LUMBAR FUSIONS 1. You may walk to your tolerance. It is good exercise for your legs and back. Expect some back and intermittent leg aches and pains. 2. You may perform "counter-top" level activities (make a sandwich, lew with a project, etc.). 3. No bending or lifting of more than 10 pounds or back twisting of any nature (roll like a log when turning in bed). 4. You may ride in a car for 20-30 minutes at a time. No driving until after your first visit with your doctor. 5. Frequent changes of position and restricting sitting to 30 minutes at a time will help limit the amount of back spasms and stiffness you may experience. 6. You may discontinue the use of ambulatory aids (cane, crutches, etc.) once your strength and confidence allow. 7. You may court administrator the shower and let water strike your incision when you arrive home at least once daily. Do not take a tub bath, sit in a hot tub or go into a swimming pool until after your first recheck in the office. SPECIAL CARE INSTRUCTIONS: VERY IMPORTANT TO READ AND REVIEW A. Your surgical incision has been closed with a cosmetic suture under the skin that will dissolve in about 6 weeks. In 14 days, you can use a pair of clean scissors and cut the suture that is left outside of the skin at the ends of your incision. 1. The small skin tapes can be removed 7 days after surgery if they have not fallen off by that point. 2. You may keep the wound open to air as much as possible to promote healing after post-op day number 5 unless told otherwise by your doctor. 3. If you think the wound looks like it is becoming infected (redness or worsening drainage) and/or you are experiencing fever, chill or worsening back pain and muscle spasms, contact the office so that we may evaluate you as soon as possible. B. Complications are uncommon, but please contact us if you have any signs or symptoms of: 1. wound infection (fever higher than 102.5 degrees F, redness, separation of wound, drainage, or increasing pain from the incision) 2. blood clots in legs (pain, swelling, redness and warmth in legs) 3. urinary tract infection (fever higher than 102.5 degrees F, burning upon urination or increased frequency of urination) 4. nerve problems (inability to walk on your toes or heels, numbness, loss of bowel or bladder control) 5. any other symptoms that concern you C. Please call the office at if you have any concerns or questions about your operation or recovery. D. No smoking! Smoking drastically decreases the chance of a solid fusion. E. Do not take any anti-inflammatory medications (Indocin, Advil, Motrin, Aspirin, Naprosyn, etc.) as these may inhibit the chance of a solid fusion. Tylenol is okay to take for pain. MANAGING PAIN AFTER SPINAL SURGERY 1. Narcotic medication is intended for short-term use and will be provided for surgical pain. Surgical pain usually lasts for a period of 4-6 weeks. Narcotic medication includes Percocet, Vicodin, Darvocet, Tylenol #3 or Lortab. 2. Longer-term pain is more appropriately treated with non-narcotic medication such as Tylenol ES. 3. Muscle spasm is not appropriately treated with narcotics. Muscle relaxers such as Soma, Flexeril or Skelaxin can be used along with Tylenol ES. 4. Remember that we all live with some "aches and pains". This is not unusual or uncommon after an injury or as we get older. a. Back pain is expected and may include muscle spasms for 4 to 6 weeks after surgery. The pain should gradually improve. If the pain worsens for no apparent reason, please contact the office. b. Intermittent leg pain may also be experienced and should not be concerned about unless it worsens for no apparent reason. If so, please contact the office. 5. We will provide appropriate medication within the normal guidelines of their prescribed use. We will also be very cautious and aware of potential abuse and extended duration of patients' medication needs. a. Pain medications are for your comfort and to assist with sleep and rest so that the tissue can heal. They are not provided in order to return to normal activity and should not be used through the day. To do so or worsening pain at night can result from ongoing tissue damage and development of tolerance to the prescribed medicine. 6. Please allow 2-3 days to process refills. Prescriptions will not be mailed but must be picked up at the office. FOLLOW UP VISIT: Keep your scheduled follow-up appointment. Any questions, please call the office at . Pending Studies at Discharge: No Stand-Alone Forms: My [employer], Smoking Cessation Skilled Items Patient informed of condition?: Yes DNR: No Discharge Level of Care: Acute rehab Communicable Disease: No Discharge Prognosis: Improving Lines: None Urinary Catheter: No Medications and DC Order Prescriptions: New tramadol 50 mg tablet 50 mg PO Q6H PRN (Reason: pain, moderate) Qty: 30 RF: 0 lisinopril 10 mg tablet 10 mg PO DAILY Qty: 30 RF: 0 oxycodone 5 mg tablet 5 mg PO Q8H PRN (Reason: severe pain (scale score 7-10)) Qty: 20 RF: 0 tramadol 50 mg tablet 50 mg PO Q8H PRN (Reason: moderate pain (scale score 5-6)) Qty: 20 RF: 0 Continued amlodipine 5 mg tablet 5 mg PO QAM Qty: 90 RF: 3 gabapentin 300 mg capsule 600 mg PO .COMPLEX RF: 0 duloxetine 60 mg capsule,delayed release(DR/EC) See Rx Instructions PO QAM Qty: 1 RF: 0 pantoprazole 40 mg tablet,delayed release (DR/EC) 40 mg PO DAILY Qty: 90 RF: 3 ipratropium-albuterol 0.5 mg-3 mg(2.5 mg base)/3 mL solution for nebulization 3 ml INH Q8H PRN (Reason: shortness of breath or wheezing) Qty: 180 RF: 5 Symbicort 160-4.5 mcg/actuation HFA aerosol inhaler 2 puff INH BID Qty: 6 RF: 5 Spiriva Respimat 2.5 mcg/actuation mist 2 puff INH QAM Qty: 4 RF: 5 albuterol sulfate 90 mcg/actuation HFA aerosol inhaler 2 puff INH Q6H PRN (Reason: Shortness Of Breath Or Wheezing) Qty: 18 RF: 3 buspirone 15 mg tablet 15 mg PO BID Qty: 60 RF: 5 cholecalciferol (vitamin D3) 50 mcg (2,000 unit) tablet 50 mcg PO QAM RF: 0 Discontinued spironolactone 25 mg tablet 25 mg PO BID Qty: 180 RF: 3 lisinopril 40 mg tablet 40 mg PO QAM Qty: 90 RF: 3 oxycodone 10 mg tablet 10 mg PO BID PRN (Reason: pain) Qty: 20 RF: 0 prednisone 10 mg tablet 10 mg PO DIRECTED RF: 0 No Action duloxetine 30 mg capsule,delayed release(DR/EC) 30 mg PO DAILY RF: 0 Discharge Orders: Discharge Order (Routine); Ordered 04/12/20 Ordered By: Avtar Rouse Admission Data Admit Date/Time: 03/31/20 19:39 Attending Provider: Avtar Rouse Admit Provider: Lalita Musa Primary Care Provider: Annette Dowd V. Other Providers: Jose Guaman ; Cleveland Doss ; Noemí Olson [place] Other Interventions: Discharge Summary Assessment (RN) Last Done: 04/12/20 15:00 Coding Level of Care Code D/C Day Management >30 mins Diagnoses Chronic back pain M54.42; G89.29 Back pain laterality: bilateral Back pain location: low back pain Sciatica laterality: sciatica of left side Sciatica presence: with sciatica Leukocytosis, unspecified D72.829 Leukocytosis type: unspecified KWAME (acute kidney injury) N17.9 Hypertension I10 Hypertension type: essential hypertension COPD with emphysema J43.9 Emphysema type: unspecified Anxiety and depression F41.9; F32.9 Colitis K52.9 Prediabetes R73.03 Current smoker F17.200 DVT prophylaxis Z29.9
== END 2020-04-12 16:26 | DRG 454 ==
LOC: ED 11:31 → 3W 19:36 → SUATTDRO 19:39 → 3W 04-03 11:04

== ENCOUNTER 2020-04-14 12:15 | Inpatient (IN) ==
--- NOTE | 2020-04-14 12:21 | Emergency Department Note ---
Impression & Plan KWAME (acute kidney injury), Abdominal pain, Constipation, Acute urinary retention ED Provider Note NAME: WILMAR IBRAHIM AGE: 79 SEX: F : 1940 ARRIVES VIA: Ambulance INFORMANT: Patient, ED PROVIDER(S): Everette Trammell MD Chief Complaint: Abdominal pain HPI: Patient does present with abdominal pain that is prior primarily in the lower abdomen. Patient denies any prior procedures to the abdomen. The patient states that is been ongoing for 8 days has gotten progressively worse describes it as occasionally sharp and constantly achy. The patient did not have a bowel movement until this morning. The patient states she has had some decreased urine output. No blood that she is noticed in urine or stool. The patient denies any recent trauma heavy lifting twisting or turning. The patient recently had an admission for chronic back pain on March 31 and subsequently did have a decompression and revision of bilateral medial facetectomies and foraminotomies of the lumbar spine along with posterior fusion. This was completed by Dr. Guaman on April 04. The patient was subsequently discharged in April 12. Patient was subsequently sent to rehab. Patient did have a leukocytosis at the time of admission which was attributable to outpatient steroids no signs of any infection UA was contaminated patient was asymptomatic. Patient had some acute mild KWAME with creat of 1.7 down to 0.9 at discharge. Patient had stated that part of the issue in which she had the procedure done was that she was having increasing difficulty movement of her left lower extremity which has been constant. The patient denies any current back pains fevers chills chest pain shortness of breath or nausea. ROS: See HPI for pertinent positives and negatives. A total of 10 systems were reviewed and otherwise negative. Past medical history: See below Surgical history: See below Social history: See below Physical Exam: GENERAL: Well appearing, well nourished, NAD, non-toxic. EYE EXAM: Normal conjunctiva. PERRL, no anisocoria and EOM's grossly intact w/o pain. NECK: Supple, no nuchal rigidity, no adenopathy, non-tender. No signs of meningismus. LUNGS: Clear to auscultation. Normal chest wall mechanics. HEART: NSR, no MRG. ABDOMEN: Abdomen soft, non-tender, normo-active bowel sounds, no masses, no sahil ound or guarding. BACK: No CVA TTP. SKIN: No rashes and no bruising. UPPER EXTREMITIES: Upper extremities are grossly normal. LOWER EXTREMITIES: Grossly normal, no edema. Negative Homans' sign bilaterally. NEURO EXAM: A&O x3, cranial nerves II-XII grossly intact, normal speech, moves all 4 extremities on command with mild issues of utilizing the left lower extremity, no sensory deficits compartments are soft. Differential diagnoses: Appendicitis, ovarian cyst, ovarian torsion, ectopic , TOA, PID, infections, diverticulitis, UTI, obstruction, mesenteric ischemia, aortic pathology, inflammatory bowel disease, renal colic, PUD, pancreatitis, biliary pathology, hernia, volvulus, constipation, as well as other pathologies. Course: Patient was seen and evaluated the bedside. Full history physical exam was performed. EKG: None Imaging Studies: Radiology results as stated below per my review in the radiologist's interpretation: CT SCAN OF THE ABDOMEN AND PELVIS WITHOUT CONTRAST CLINICAL HISTORY: Abdominal pain. Renal insufficiency. RECENT BACK SURGERY. PATIENT IN REHABILITATION. COMPARISON STUDY: 03/31/2020 TECHNIQUE: CT scan of the abdomen and pelvis was performed from the lung bases to the proximal femurs. Images are reviewed in the axial, sagittal, and coronal planes. IV contrast was not administered for this examination. A dose lowering technique was utilized adhering to the principles of ALARA. CT DOSE: 626.47 mGy.cm FINDINGS: Lower chest: There is pulmonary emphysema. There is mild lingular atelectasis. Liver: The unenhanced liver is normal in size, contour, and attenuation. There is no intrahepatic biliary ductal dilatation. Gallbladder: Unremarkable. Spleen: Normal in size and attenuation. Pancreas: Unremarkable. Adrenal glands: There is bilateral low density adrenal gland thickening likely secondary to adenomatous hyperplasia Kidneys: There are bilateral renal vascular calcifications. There is no hydronephrosis Bowel: There are no transition zones indicate bowel obstruction. By history the appendix is surgically absent. There is colonic fecal retention. There is been resolution of the previously described left colonic wall thickening. There is minimal infiltration of the perisigmoid fat. Minimal diverticulitis cannot be excluded. Peritoneum: There is no intraperitoneal free air or abdominal ascites. Vasculature: The abdominal aorta is normal in course and caliber. Adenopathy: None. Pelvic viscera: There is an indwelling Sibley catheter. There are no pathologic adnexal masses. Gas within the bladder is felt to be iatrogenic. Skeletal structures: There are postsurgical changes of an L3-S1 spinal decompression and fusion. Edema and fluid with the soft tissues of the lower back are likely postsurgical. IMPRESSION: 1. Interval L3-S1 spinal decompression and fusion 2. No evidence of bowel obstruction. No evidence of free air 3. Moderate colonic fecal retention 4. Interval resolution of previously described left colonic wall thickening 5. Colonic diverticulosis. Minimal stranding within the perisigmoid fat. Minimal diverticulitis cannot be excluded. ACT 112: Negative or not required by law. Electronically signed by: Zi Mcleod M.D. 04/14/2020 2:17 PM Dictated: 04/14/20 1410 Transcribed: 04/14/20 1410 Cardiac monitoring: An order was placed for continuous cardiac monitoring. The monitor shows a rate of 87 with sinus rhythm. MDM: Patient does present with abdominal pain. Blood work is obtained. Patient is a white count of 20. Left shift noted neutrophil count of 18 which is unchanged from prior. Very mild anemia hemoglobin 11.8. Patient does have KWAME which change from prior with potassium 5.2. Patient does have 600 cc of urine in the bladder. CT abdomen pelvis was changed without contrast. Sibley was placed. Urine obtained. Patient was admitted to medicine service due to concern for KWAME which may be secondary to constipation and urinary retention. Patient CT cannot rule out diverticulitis. Given this and her abdominal pain with persistent white count will cover with antibiotics cultures were ordered. Patient does have KWAME. Additional IV fluids were ordered. Patient was admitted to Dr. Torrey MD [facility] physician [facility]. 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, stage pT2 Status post reexcision and sentinel lymph node biopsy 12/26/2013 pN0 (i+) Oncotype DX score of 11 Status post completion of radiation therapy 04/13/2014 received 5006 cGy utilizing hypo-fractionation Required post radiation wound care " Chronic back pain Chronic respiratory failure with hypoxia COPD (chronic obstructive pulmonary disease) Depression Dyspnea on exertion Elevated alkaline phosphatase level Facet arthritis of lumbar region Hearing decreased History of breast cancer 5 years ago - Left + surgery, no chemo Hypercholesteremia Hypertension Lesion of right [place] kidney patient is unaware Limb alert care status LUE no lab draws Multiple pulmonary nodules On home oxygen therapy 2 LPM QHS PRN > HAS DIFFICULTY WITH KEEPING ON AT HS Osteoarthritis Osteoporosis Osteoporosis PAC (premature atrial contraction) Prediabetes Pulmonary hypertension Sciatica Sleep disturbance Spinal stenosis Spinal stenosis Statin intolerance Stenosis of iliac artery Vitamin D deficiency disease Surgical History H/O lumbosacral spine surgery History of breast biopsy History of cataract surgery right and left History of colonoscopy History of D&C History of partial mastectomy of left breast History of right knee joint replacement History of tooth extraction Hx of oral surgery S/P breast lumpectomy Slow to wake up after anesthesia Family History Daughter Breast cancer Mother Aortic aneurysm Renal failure Brother Prostate cancer Aortic aneurysm Father Aortic aneurysm Pure hypercholesterolemia Hypertension Grandmother (Maternal) Colon cancer Unknown Diabetes Other No family history of adverse response to anesthesia Denies family history of Ovarian cancer Myocardial infarction Social History Smoking Status: Former smoker Tobacco Type: Cigarettes Cigarettes Per Day: 10-20; Second Hand Exposure: No; Hx Alcohol Use: No Hx Substance Use: Yes Substance Use Type Other:: medical marijuana - bring card to make copy Preferred Language: [place]i Communication Ability: Effective [employer] 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 Required: No Beliefs That Will Affect Care: None marital status: / Current Living Situation: Alone and Family Current Living Situation Comment: dtr stays with patient current occupational status: retired Other Information That Helps Us Care for You: No Feels Safe at Home: Yes Safety Concerns: Feels Safe At This Time Seatbelt Use: always Assistive Devices: Walker Allergies Allergies Allergy/AdvReac Type Severity Reaction Status Date / Time nitrofurantoin Allergy Severe SOB, Verified 04/14/20 13:25 [From Macrobid] nausea, vomiting penicillin V Allergy Unknown CAN'T Verified 04/14/20 13:25 REMEMBER REACTION atorvastatin AdvReac Intermediate muscle pain Verified 04/14/20 13:25 ciprofloxacin AdvReac Intermediate REDNESS Verified 04/14/20 13:25 ALONG VEIN simvastatin AdvReac Intermediate muscle pain Verified 04/14/20 13:25 Home Meds Home Medications Medication Instructions Recorded Confirmed cholecalciferol (vitamin D3) 50 mcg PO QAM 01/16/20 04/14/20 gabapentin 300 mg capsule 600 mg PO .COMPLEX cap 02/24/20 04/14/20 duloxetine 30 mg PO DAILY 04/14/20 04/14/20 Previous Rx's Medication Instructions Recorded buspirone 15 mg tablet 15 mg PO BID #60 tab 10/31/19 albuterol sulfate 90 mcg/actuation 2 puff INH Q6H PRN #18 gm 01/25/20 aerosol inhaler budesonide-formoterol HFA 160 2 puff INH BID #6 gm 01/25/20 mcg-4.5 mcg/actuation aerosol inhaler ipratropium 0.5 mg-albuterol 3 mg 3 ml INH Q8H PRN #180 ml 01/25/20 (2.5 mg base)/3 mL nebulization soln tiotropium bromide 2.5 2 puff INH QAM #4 g 01/25/20 mcg/actuation mist for inhalation duloxetine 60 mg capsule,delayed See Rx Instructions PO QAM #1 cap 02/24/20 release pantoprazole 40 mg tablet,delayed 40 mg PO DAILY #90 tab 02/24/20 release amlodipine 5 mg tablet 5 mg PO QAM #90 tab 02/27/20 tramadol 50 mg PO Q6H PRN #30 tab 04/06/20 lisinopril 10 mg PO DAILY #30 tab 04/12/20 oxycodone 5 mg PO Q8H PRN #20 tab 04/12/20 tramadol 50 mg PO Q8H PRN #20 tab 04/12/20 Results & Data (ED) Vital Signs Vital Signs - 24 hr 04/14/20 12:22 04/14/20 12:25 04/14/20 12:30 Temperature 36.8 C Temperature Source Oral Pulse Rate 89 87 82 Pulse Rate from SpO2 Sensor 86 Respiratory Rate 15 21 18 Blood Pressure 115/48 L 115/48 L Blood Pressure Mean 70 70 Pulse Oximetry 95 Oxygen Delivery Method Room Air Sepsis Recent Fever Within 48 Hours No Sepsis New/Unexplained Change in Mental Status No Sepsis Action Taken by Nursing No Action Required 04/14/20 12:40 04/14/20 12:41 04/14/20 12:50 Temperature Temperature Source Pulse Rate 87 83 Pulse Rate from SpO2 Sensor 93 H 86 Respiratory Rate 18 17 Blood Pressure Blood Pressure Mean Pulse Oximetry 98 95 96 Oxygen Delivery Method Room Air Sepsis Recent Fever Within 48 Hours Sepsis New/Unexplained Change in Mental Status Sepsis Action Taken by Nursing 04/14/20 13:00 04/14/20 13:10 04/14/20 13:20 Temperature Temperature Source Pulse Rate 86 89 81 Pulse Rate from SpO2 Sensor 87 90 84 Respiratory Rate 20 18 18 Blood Pressure Blood Pressure Mean Pulse Oximetry 100 98 95 Oxygen Delivery Method Sepsis Recent Fever Within 48 Hours Sepsis New/Unexplained Change in Mental Status Sepsis Action Taken by Nursing 04/14/20 13:30 04/14/20 13:40 04/14/20 13:50 Temperature Temperature Source Pulse Rate 79 85 78 Pulse Rate from SpO2 Sensor 80 85 78 Respiratory Rate 15 19 17 Blood Pressure Blood Pressure Mean Pulse Oximetry 96 95 94 Oxygen Delivery Method Sepsis Recent Fever Within 48 Hours Sepsis New/Unexplained Change in Mental Status Sepsis Action Taken by Nursing 04/14/20 14:08 04/14/20 14:10 04/14/20 14:20 Temperature Temperature Source Pulse Rate 83 80 77 Pulse Rate from SpO2 Sensor 82 Respiratory Rate 19 17 18 Blood Pressure Blood Pressure Mean Pulse Oximetry 94 96 Oxygen Delivery Method Sepsis Recent Fever Within 48 Hours Sepsis New/Unexplained Change in Mental Status Sepsis Action Taken by Nursing 04/14/20 14:30 04/14/20 14:40 Temperature Temperature Source Pulse Rate 78 79 Pulse Rate from SpO2 Sensor 84 111 H Respiratory Rate 17 17 Blood Pressure 120/85 Blood Pressure Mean 96 Pulse Oximetry 92 92 Oxygen Delivery Method Sepsis Recent Fever Within 48 Hours Sepsis New/Unexplained Change in Mental Status Sepsis Action Taken by [facility] Medications Current Medication List: was personally reviewed by me Laboratory Data Attestation: I reviewed the patient's lab results. Result diagrams: 04/14/20 12:34 04/14/20 12:34 Lab Results 04/14/20 04/14/20 04/14/20 Range/Units 12:34 12:34 12:34 WBC 20.88 H (4.8-10.8) K/uL RBC 3.76 L (4.2-5.4) M/uL Hgb 11.8 L (12.0-16.0) g/dL Hct 33.9 L (37-47) % MCV 90.2 (80-100) fL MCH 31.4 (25-34) pg MCHC 34.8 (32-36) g/dL RDW Std Deviation 44.8 (36.4-46.3) fL RDW Coeff of [place] 13.6 (11.5-14.5) % Plt Count 289 (130-400) K/uL MPV 9.1 (7.4-10.4) fL Immature Gran % (Auto) 1.0 % Neut % (Auto) 88.9 % Lymph % (Auto) 5.5 % [place] % (Auto) 4.3 % Eos % (Auto) 0.3 % Baso % (Auto) 0.0 % Neut # (Auto) 18.58 H (1.4-6.5) K/uL Lymph # (Auto) 1.14 L (1.2-3.4) K/uL [place] # (Auto) 0.89 H (0.11-0.59) K/uL Eos # (Auto) 0.06 (0-0.5) K/uL Baso # (Auto) 0.01 (0-0.2) K/uL Immature Gran # (Auto) 0.20 H (0.00-0.02) K/uL Sodium 127 L (136-145) mmol/L Potassium 5.2 H (3.5-5.1) mmol/L Chloride 94 L (98-107) mmol/L Carbon Dioxide 30 (21-32) mmol/L Anion Gap 3.0 (3-11) BUN 48 H (7-18) mg/dl Creatinine 2.19 H (0.6-1.2) mg/dl Est Cr Clr Drug Dosing 21.6 ml/min Est GFR ( Amer) 24.1 Est GFR (Non-Af Amer) 20.8 BUN/Creatinine Ratio 21.7 H (10-20) Glucose 115 H (70-99) mg/dl Calcium 8.8 (8.5-10.1) mg/dl Total Bilirubin 0.8 (0.2-1) mg/dl AST 45 H (15-37) U/L ALT 40 (12-78) U/L Alkaline Phosphatase 98 (45-117) U/L Total Protein 5.8 L (6.4-8.2) gm/dl Albumin 2.3 L (3.4-5.0) gm/dl Globulin 3.5 (2.5-4.0) gm/dl Albumin/Globulin Ratio 0.7 L (0.9-2) Lipase 55 L (73-393) U/L TSH 1.060 (0.300-4.500) uIu/ml Urine Color Urine Appearance (Clear) Urine pH (4.5-7.5) Ur Specific [place] (1.000-1.030) Urine Protein (Negative) Urine Glucose (UA) (Negative) Urine Ketones (Negative) Urine Blood (Negative) Urine Nitrite (Negative) Urine Bilirubin (Negative) Urine Urobilinogen (Negative) Ur Leukocyte Esterase (Negative) Urine WBC (Auto) (0-5) /hpf Urine RBC (Auto) (0-4) /hpf U Hyaline Cast (Auto) (0-5) /lpf U Epithel Cells (Auto) (0-5) /lpf Urine Bacteria (Auto) (Negative) Ur Renal Epithelial Cell Urine Mucus (None Prsent) COVID-19 Eval Order SARS-CoV-2, RNA, NAAT (NEGATIVE) 04/14/20 04/14/20 04/14/20 Range/Units 13:41 14:30 14:30 WBC (4.8-10.8) K/uL RBC (4.2-5.4) M/uL Hgb (12.0-16.0) g/dL Hct (37-47) % MCV (80-100) fL MCH (25-34) pg MCHC (32-36) g/dL RDW Std Deviation (36.4-46.3) fL RDW Coeff of [place] (11.5-14.5) % Plt Count (130-400) K/uL MPV (7.4-10.4) fL Immature Gran % (Auto) % Neut % (Auto) % Lymph % (Auto) % [place] % (Auto) % Eos % (Auto) % Baso % (Auto) % Neut # (Auto) (1.4-6.5) K/uL Lymph # (Auto) (1.2-3.4) K/uL [place] # (Auto) (0.11-0.59) K/uL Eos # (Auto) (0-0.5) K/uL Baso # (Auto) (0-0.2) K/uL Immature Gran # (Auto) (0.00-0.02) K/uL Sodium (136-145) mmol/L Potassium (3.5-5.1) mmol/L Chloride (98-107) mmol/L Carbon Dioxide (21-32) mmol/L Anion Gap (3-11) BUN (7-18) mg/dl Creatinine (0.6-1.2) mg/dl Est Cr Clr Drug Dosing ml/min Est GFR ( Amer) Est GFR (Non-Af Amer) BUN/Creatinine Ratio (10-20) Glucose (70-99) mg/dl Calcium (8.5-10.1) mg/dl Total Bilirubin (0.2-1) mg/dl AST (15-37) U/L ALT (12-78) U/L Alkaline Phosphatase (45-117) U/L Total Protein (6.4-8.2) gm/dl Albumin (3.4-5.0) gm/dl Globulin (2.5-4.0) gm/dl Albumin/Globulin Ratio (0.9-2) Lipase (73-393) U/L TSH (0.300-4.500) uIu/ml Urine Color Dark Yellow Urine Appearance Clear (Clear) Urine pH 5.0 (4.5-7.5) Ur Specific [place] 1.016 (1.000-1.030) Urine Protein Negative (Negative) Urine Glucose (UA) Negative (Negative) Urine Ketones Negative (Negative) Urine Blood Negative (Negative) Urine Nitrite Negative (Negative) Urine Bilirubin Negative (Negative) Urine Urobilinogen Negative (Negative) Ur Leukocyte Esterase Trace H (Negative) Urine WBC (Auto) 10-30 H (0-5) /hpf Urine RBC (Auto) 0-4 (0-4) /hpf U Hyaline Cast (Auto) 10-30 H (0-5) /lpf U Epithel Cells (Auto) >30 H (0-5) /lpf Urine Bacteria (Auto) 4+ H (Negative) Ur Renal Epithelial Cell Not Reportable Urine Mucus Present A (None Prsent) COVID-19 Eval Order Covid19 [facility] SARS-CoV-2, RNA, NAAT NEGATIVE (NEGATIVE) Administered Medications Bisacodyl (Bisacodyl 5 Mg Tabec) 5 mg PO DAILY BURAK Stop: 05/14/20 15:21 Last Admin: 04/14/20 17:27 Dose: 5 mg Documented by: [id number] Sodium Chloride (Nss 1000ml) 1,000 mls @ 125 mls/hr IV .Q8H BURAK Stop: 04/15/20 17:14 Last Admin: 04/14/20 17:27 Dose: 125 mls/hr Documented by: [id number] Polyethylene Glycol (Polyethylene (Miralax) 17 Gm Pack) 17 gm PO DAILY BURAK Stop: 05/14/20 15:21 Last Admin: 04/14/20 17:27 Dose: 17 gm Documented by: [id number] Discontinued Medications Sodium Chloride (Nss) 500 mls @ 999 mls/hr IV .Q31M BURAK Stop: 04/14/20 13:00 Last Infusion: 04/14/20 15:06 Dose: 0 mls/hr Documented by: [id number] Admin: 04/14/20 12:41 Dose: 999 mls/hr Documented by: [id number] Ceftriaxone Sodium (Rocephin) 2,000 mg in 70 mls @ 140 mls/hr IV NOW STA Stop: 04/14/20 15:21 Last Infusion: 04/14/20 16:59 Dose: 0 mls/hr Documented by: [id number] Admin: 04/14/20 15:34 Dose: 140 mls/hr Documented by: [id number] Metronidazole (Flagyl) 500 mg in 100 mls @ 100 mls/hr IV NOW STA Stop: 04/14/20 15:51 Last Infusion: 04/14/20 17:16 Dose: 0 mls/hr Documented by: [id number] Admin: 04/14/20 16:06 Dose: 100 mls/hr Documented by: [id number] Morphine Sulfate (Morphine Sulfate 4 Mg/Ml 1 Ml Carp\\Vial) 4 mg IV NOW STA Stop: 04/14/20 12:29 Last Admin: 04/14/20 12:41 Dose: 4 mg Documented by: [id number] Ondansetron HCl (Ondansetron Inj 2 Mg/Ml 2 Ml Vial) 4 mg IV NOW STA Stop: 04/14/20 12:29 Last Admin: 04/14/20 12:40 Dose: 4 mg Documented by: [id number] Discharge Plan Visit Data Chief Complaint: Abdominal Pain ED Provider: Everette Trammell Discharge Problem: KWAME (acute kidney injury), Abdominal pain, Constipation, Acute urinary retention Patient Disposition: Admitted As Inpatient Discharge Instructions Interventions: ED Discharge Assessment Last Done: 04/14/20 15:57 Discharge Problem: Abdominal pain Qualifiers: Abdominal location: lower abdomen, unspecified Qualified Code(s): R10.30 - Lower abdominal pain, unspecified Constipation Qualifiers: Constipation type: unspecified constipation type Qualified Code(s): K59.00 - Constipation, unspecified
[2020-04-14] MEDS ORDERED: ONDANSETRON INJ 2 MG/ML 2 ML VIAL IV STA (12:28)
[2020-04-14] MEDS ORDERED: MoRPHine SULFATE 4 MG/ML 1 ML CARP\\VIAL IV STA (12:28)
[2020-04-14] MEDS ORDERED: SODIUM CHLORIDE 0.9% 500 ML IV SCH (12:30)
[2020-04-14 12:49] LABS: Basophils # (auto) 0.01 K/uL (0-0.2); Eosinophils # (auto) 0.06 K/uL (0-0.5); Eosinophils % (auto) 0.3 %; Hematocrit (blood only) 33.9 % (37-47); Hemoglobin 11.8 g/dL (12.0-16.0); Lymphocytes # (auto) 1.14 K/uL (1.2-3.4); Lymphocytes % (auto) 5.5 %; Mean Corpuscular Hemoglobin 31.4 pg (25-34); Mean Corpuscular Hgb Conc 34.8 g/dL (32-36); Mean Corpuscular Volume 90.2 fL (80-100); Mean Platelet Volume 9.1 fL (7.4-10.4); Monocytes # (auto) 0.89 K/uL (0.11-0.59); Monocytes % (auto) 4.3 %; Neutrophils # (auto) 18.58 K/uL (1.4-6.5); Neutrophils % (auto) 88.9 %; Platelet Count 289 K/uL (130-400); RDW Coefficient of Variation 13.6 % (11.5-14.5); RDW Standard Deviation 44.8 fL (36.4-46.3); Red Blood Count 3.76 M/uL (4.2-5.4); White Blood Count 20.88 K/uL (4.8-10.8)
[2020-04-14 13:16] LABS: Albumin Level 2.3 gm/dl (3.4-5.0); BUN Creatinine Ratio 21.7 (10-20); Calcium 8.8 mg/dl (8.5-10.1); Creatinine Clr Calc Pharmacy 21.6 ml/min; Est GFR (African American) 24.1; Est GFR (Non-African American) 20.8; Potassium 5.2 mmol/L (3.5-5.1)
[2020-04-14 13:19] LABS: Albumin Globulin Ratio 0.7 (0.9-2); Bilirubin,Total 0.8 mg/dl (0.2-1); Globulin 3.5 gm/dl (2.5-4.0); Total Protein 5.8 gm/dl (6.4-8.2)
[2020-04-14 14:00] LABS: Appearance Urine Clear (Clear); Bilirubin Urine Negative (Negative); Blood Urine Negative (Negative); Color Urine Dark Yellow; Epithelial Cell Urine Auto >30 /lpf (0-5); Glucose Urine UA Negative (Negative); Ketones Urine Negative (Negative); Leukocyte Esterase Urine Trace (Negative); Nitrite Urine Negative (Negative); Protein Urine Negative (Negative); Specific Gravity Urine 1.016 (1.000-1.030); Urobilinogen Urine Negative (Negative)
--- NOTE | 2020-04-14 14:18 | CT Scan Report ---
CT SCAN OF THE ABDOMEN AND PELVIS WITHOUT CONTRAST CLINICAL HISTORY: Abdominal pain. Renal insufficiency. RECENT BACK SURGERY. PATIENT IN REHABILITATION . COMPARISON STUDY: 03/31/2020 TECHNIQUE: CT scan of the abdomen and pelvis was performed from the lung bases to the proximal femurs . Images are reviewed in the axial, sagittal, and coronal planes. IV contrast was not administered fo r this examination. A dose lowering technique was utilized adhering to the principles of ALARA. CT DOSE: 626.47 mGy.cm FINDINGS: Lower chest: There is pulmonary emphysema. There is mild lingular atelectasis. Liver: The unenhanced liver is normal in size, contour, and attenuation. There is no intrahepatic aure iary ductal dilatation. Gallbladder: Unremarkable. Spleen: Normal in size and attenuation. Pancreas: Unremarkable. Adrenal glands: There is bilateral low density adrenal gland thickening likely secondary to adenomato us hyperplasia Kidneys: There are bilateral renal vascular calcifications. There is no hydronephrosis Bowel: There are no transition zones indicate bowel obstruction. By history the appendix is surgicall y absent. There is colonic fecal retention. There is been resolution of the previously described left colonic wall thickening. There is minimal infiltration of the perisigmoid fat. Minimal diverticuliti s cannot be excluded. Peritoneum: There is no intraperitoneal free air or abdominal ascites. Vasculature: The abdominal aorta is normal in course and caliber. Adenopathy: None. Pelvic viscera: There is an indwelling Sibley catheter. There are no pathologic adnexal masses. Gas wi thin the bladder is felt to be iatrogenic. Skeletal structures: There are postsurgical changes of an L3-S1 spinal decompression and fusion. Sergo a and fluid with the soft tissues of the lower back are likely postsurgical. IMPRESSION: 1. Interval L3-S1 spinal decompression and fusion 2. No evidence of bowel obstruction. No evidence of free air 3. Moderate colonic fecal retention 4. Interval resolution of previously described left colonic wall thickening 5. Colonic diverticulosis. Minimal stranding within the perisigmoid fat. Minimal diverticulitis canno t be excluded. ACT 112: Negative or not required by law. Electronically signed by: Zi Mcleod M.D. 04/14/2020 2:17 PM
[2020-04-14] MEDS ORDERED: metroNIDAZOLE 500 MG/100 ML BAG IV STA (14:52)
[2020-04-14] MEDS ORDERED: cefTRIAXone SODIUM 2,000 MG/70 ML BAG IV STA (14:52)
[2020-04-14 15:03] LABS: RBC Urine Automated 0-4 /hpf (0-4)
[2020-04-14 15:04] LABS: Mucus Urine Present (None Prsent)
[2020-04-14 15:05] LABS: Bacteria Urine Automated 4+ (Negative)
--- NOTE | 2020-04-14 15:13 | History & Physical Report ---
Date of Service April 14, 2020 Assessment & Plan (1) Abdominal pain: - Admit to med surg - CT abd reviewed - appears to have large fecal retention on imaging, will start with dulcolax po and mirilax po now. pt reports having small soft BM this morning, but this was the first in 5 days. - Continue Ceftriaxone/flagyl for possible diverticulitis - Allow clear liquid diet for now (2) Constipation: - bowel regimen as above (3) KWAME (acute kidney injury): - IVFs with NSS at 125 ml/hr x 1 day - Cr. 2.19, BUN 48, elevated compared to 04/11 Cr. 1.01 and BUN 32 - Hold nephrotoxins, renally reduce medications, holding lisinopril and amlodipine, BP well controlled currently - had been previously taken off spironolactone. - Follow with AM labs (4) Acute urinary retention: - Bladder scan prn, straight cath prn for retention - Could also be due to polypharmacy and narcotic use over the past few days. - Consider spinal involvement causing both urinary and colonic retention, xray of the lumbar spine completed, but would not show suspected abscess, consider CT pending ortho spine consultation. (5) Hyponatremia: - Na 127 on admission, was 133 on discharge - NSS as above with KWAME, pt reports eating and drinking well, will check labs for SIADH, check FeNa, add on TSH - Check BMP this evening to ensure correcting (6) Chronic back pain: - Hold PO narcotics, can use tylenol and tramadol for now, consider intermittent IV MS for breakthrough pain. (7) Lumbar disc herniation with radiculopathy: - S/p surgery (8) Status post lumbar spine operative procedure for decompression of spinal cord: - Will consult Dr. Guaman s/p surgery 10 days ago with worsening abd pain, urinary and fecal retention. Surgical incision appears to be well healing, no point tenderness over this region. (9) Hypertension: - Hold lisinopril and amlopidine with KWAME - Can use IV hydralazine prn if needed, BP stable at 120/85 currently. (10) Pulmonary hypertension: - Presumed. 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 for rehab, likely to remain in the hospital x 2 days History of Present Illness Primary Care Provider: [facility] [place] This is a 79 yo F who was recently admitted here from 03/31/2020 through 04/12/2020 for a history of chronic back pain with laminectomy and persistent L5 radiculopathy, spinal stenosis with history of epidural injections in January then underwent spinal decompression and fusion by Dr. Guaman on 04/04/2020, and had an extended hospital course due to back pain, KWAME with leukocytosis, as well as pt decision on home vs. rehab. Throughout that stay the patient had chronic leukocytosis that was attributed to outpatient steroids as there was no focal signs of infection, her UA was contaminated but the patient was asymptomatic. Her WBC on 04/10 was 20, and is consistent with today's level of 20.88 on admission. Her kidney function is worse with creatinine 2.19 and BUN 48 compared to creatinine 0.93 on discharge. She was discharged to [facility]. Pt has had increasing abdominal pain over the last 2 days, currently rated as a 6/10, with constipation and urinary retention. She was eating and drinking well. Reports having small soft BM this morning, but this was the first in 5 days. Pt reports she asked to be brought to the hospital this morning because of her pain. Pt is unsure if she was taking stool softeners or fiber, but states "I'm taking all the medications she's supposed to be taking. A CT of the abd/pelvis was completed and is negative for bowel obstruction, free air but does show moderate colonic fecal retention, colonic diverticulosis, minimal stranding within perisigmoid fat which is concerning for possible diverticulitis. She has been started on ceftraixone and flagyl IV. She denies any fever, chills or sweats. Other PMHx includes HTN, HLD, COPD with emphysema, chronic respiratory failure with hypoxia, prediabetes, pulmonary hypertension, KWAME, vitamin D deficiency, sciatica, osteoporosis, and multiple pulmonary nodules. Allergies Allergy/AdvReac Type Severity Reaction Status Date / Time nitrofurantoin Allergy Severe SOB, Verified 04/14/20 13:25 [From Macrobid] nausea, vomiting penicillin V Allergy Unknown CAN'T Verified 04/14/20 13:25 REMEMBER REACTION atorvastatin AdvReac Intermediate muscle pain Verified 04/14/20 13:25 ciprofloxacin AdvReac Intermediate REDNESS Verified 04/14/20 13:25 ALONG VEIN simvastatin AdvReac Intermediate muscle pain Verified 04/14/20 13:25 Home Medications Medication Instructions Recorded Confirmed Type buspirone 15 mg tablet 15 mg PO BID #60 tab 10/31/19 04/14/20 Rx cholecalciferol (vitamin D3) 50 mcg PO QAM 01/16/20 04/14/20 History albuterol sulfate 90 mcg/actuation 2 puff INH Q6H PRN #18 gm 01/25/20 04/14/20 Rx aerosol inhaler budesonide-formoterol HFA 160 2 puff INH BID #6 gm 01/25/20 04/14/20 Rx mcg-4.5 mcg/actuation aerosol inhaler ipratropium 0.5 mg-albuterol 3 mg 3 ml INH Q8H PRN #180 ml 01/25/20 04/14/20 Rx (2.5 mg base)/3 mL nebulization soln tiotropium bromide 2.5 2 puff INH QAM #4 g 01/25/20 04/14/20 Rx mcg/actuation mist for inhalation duloxetine 60 mg capsule,delayed See Rx Instructions PO QAM #1 cap 02/24/20 04/14/20 Rx release gabapentin 300 mg capsule 600 mg PO .COMPLEX cap 02/24/20 04/14/20 History pantoprazole 40 mg tablet,delayed 40 mg PO DAILY #90 tab 02/24/20 04/14/20 Rx release amlodipine 5 mg tablet 5 mg PO QAM #90 tab 02/27/20 04/14/20 Rx tramadol 50 mg PO Q6H PRN #30 tab 04/06/20 Rx lisinopril 10 mg PO DAILY #30 tab 04/12/20 04/14/20 Rx oxycodone 5 mg PO Q8H PRN #20 tab 04/12/20 04/14/20 Rx tramadol 50 mg PO Q8H PRN #20 tab 04/12/20 Rx duloxetine 30 mg PO DAILY 04/14/20 04/14/20 History 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, stage pT2 Status post reexcision and sentinel lymph node biopsy 12/26/2013 pN0 (i+) Oncotype DX score of 11 Status post completion of radiation therapy 04/13/2014 received 5006 cGy utilizing hypo-fractionation Required post radiation wound care " Chronic back pain Chronic respiratory failure with hypoxia COPD (chronic obstructive pulmonary disease) Depression Dyspnea on exertion Elevated alkaline phosphatase level Facet arthritis of lumbar region Hearing decreased History of breast cancer 5 years ago - Left + surgery, no chemo Hypercholesteremia Hypertension Lesion of right [place] kidney patient is unaware Limb alert care status LUE no lab draws Multiple pulmonary nodules On home oxygen therapy 2 LPM QHS PRN > HAS DIFFICULTY WITH KEEPING ON AT HS Osteoarthritis Osteoporosis Osteoporosis PAC (premature atrial contraction) Prediabetes Pulmonary hypertension Sciatica Sleep disturbance Spinal stenosis Spinal stenosis Statin intolerance Stenosis of iliac artery Vitamin D deficiency disease Surgical History H/O lumbosacral spine surgery History of breast biopsy History of cataract surgery right and left History of colonoscopy History of D&C History of partial mastectomy of left breast History of right knee joint replacement History of tooth extraction Hx of oral surgery S/P breast lumpectomy Slow to wake up after anesthesia Family History Daughter Breast cancer Mother Aortic aneurysm Renal failure Brother Prostate cancer Aortic aneurysm Father Aortic aneurysm Pure hypercholesterolemia Hypertension Grandmother (Maternal) Colon cancer Unknown Diabetes Other No family history of adverse response to anesthesia Denies family history of Ovarian cancer Myocardial infarction Social History Smoking Status: Former smoker Tobacco Type: Cigarettes Cigarettes Per Day: 10-20; Second Hand Exposure: No; Hx Alcohol Use: No Hx Substance Use: Yes Substance Use Type Other:: medical marijuana - bring card to make copy Preferred Language: Kazakh Communication Ability: Effective Order Packer Required: No Beliefs That Will Affect Care: None marital status: / Current Living Situation: Alone and Family Current Living Situation Comment: dtr stays with patient current occupational status: retired Other Information That Helps Us Care for You: No Feels Safe at Home: Yes Safety Concerns: Feels Safe At This Time Seatbelt Use: always Assistive Devices: Walker Review of Systems Review of Systems: Constitutional: No fever, sweats or chills Eyes: No diplopia, no worsening or blurred vision ENT: normal hearing, no trouble swallowing Respiratory: No cough, sputum, dyspnea at rest or on exertion Cardiovascular: No chest pain, tightness or palpitations Abdomen: + pain rated 6/10 in LLQ, no nausea, no vomiting or diarrhea, + constipation Back: Pain well controlled, incision healing Musculoskeletal: Able to lift legs up off the bed, getting stronger in the left every day s/p surgery, otherwise No joint pain, calf pain, or swelling Neurologic: No weakness, numbness/tingling, adequate and equal sensation to light touch in lower extremities, uses a walker with ambulation s/p surgery Psychiatric: + anxiety or depression on medications Skin: No rash or itch Physical Exam Physical Exam: General: awake, alert, no apparent distress, + obese with BMI of 31 Head: Normocephalic, atraumatic ENT: PERRL, EOMI, no pharyngeal exudate, mucous membranes moist, + top denture plate Chest: On room air, o2 sats 92%, clear breath sounds, no adventitious breath sounds Cardiac: Regular rate and rhythm, no murmur, no JVD, normal peripheral pulses, good capillary refill Abdominal: + hypoactive bs x 4 quad, soft, nondistended,+ slightly tender to palpation in LLQ, + stool palpable with deep palpation in LLQ, no rebound or guarding : sharma cath in place, draining clear yellow urine Back: surgical incision over L3-S1 appears to be healing well, no tenderness over incision, no purulent material expressed, no surrounding erythema. Steri- strips present but loosening. Small area of ecchymosis over the R lower back resolving. Extremities: Normal inspection, no peripheral edema or erythema, calfs nontender to palpation Psych: Normal mood and affect Neuro: AAO x 3, strength intact bilaterally and rated 5/5, slightly weaker with hip flexion in the RLE compared to LLE but rated 5/5. no motor deficits, speech is clear, no peripheral sensory deficits Results & Data Results & Data ([facility]) Vital Signs (Past 12 Hours) Vital Signs Temp Pulse Resp BP Pulse Ox 04/14/20 14:40 79 17 92 04/14/20 14:30 78 17 120/85 92 04/14/20 14:20 77 18 96 04/14/20 14:10 80 17 94 04/14/20 14:08 83 19 04/14/20 13:50 78 17 94 04/14/20 13:40 85 19 95 04/14/20 13:30 79 15 96 04/14/20 13:20 81 18 95 04/14/20 13:10 89 18 98 04/14/20 13:00 86 20 100 04/14/20 12:50 83 17 96 04/14/20 12:41 95 04/14/20 12:40 87 18 98 04/14/20 12:30 82 18 04/14/20 12:25 36.8 C 87 21 115/48 L 95 04/14/20 12:22 89 15 115/48 L Supervising Physician Co-Signing Physician Notes Attending Attestation & Admission Note: Pt seen and examined, chart reviewed, care plan d/w KATERIN Malloy. I agree w/ the simmons components of her documentation except - * patient is clinically dehydrated * patient has not been eating/drinking well since hospital d/c on 04/12/20, and reports poor appetite even before that Pleasant 79yo female - s/p lumbar decompression/fusion surgery on 04/04/[address] Guaman - presents from [facility] with increasing abdominal pain since hospital discharge. Pain was largely generalized. Had not had bowel movement until this am. No blood, soft stool. Poor appetite. Back pain controlled. Found to be in urinary retention upon ER presentation today - s/p sharma ins ertion. During my bedside assessment she states "I don't want to go back there" [rehab]. Denies significant weakness in arms/legs; in fact, prior LLE weakness has improved over the last week. Tolerated clear liquids with dinner tonight; this did NOT make abd pain worse. PMH, PSH, allergies, meds, sochx, famhx - reviewed records reviewed - 03/31/20 - urine cx with pansensitive e.coli; was not treated; thought to be asymptomatic bacteriuria. WBC count elevated since 03/31/20. VSS although BPs are low-normal gen - looks tired, weak, dehydrated, but NAD mouth - MM dry neck - no JVD heart - RRR, s1 s2, 2/6 systolic murmur LLSB lungs - CTA b/l abd - mildly distended, BS+, NT, no HSM ext - no edema neuro - strength b/l hip flexion 5/5; dorsiflexion/plantarflexion 5/5 b/l skin - lumbar incision well-healed, no drainage, no erythema labs - Na 127 K 5.2 Cr 2.19 u/a - 4+ bacteria COVID neg A/P: 1. hyponatremia - likely hypovolemia. Hydrate with NS. Repeat BMP tonight, then again in am. Agree w/ urine Na, urine Osm, etc. 2. KWAME - 2nd to volume depletion. Can't rule out obstruction from retention. Hydrate, serial BMPs, sharma. 3. e. coli UTI - could be cause of urinary retention, leukocytosis, anorexia, abd pain. Would Rx. Rocephin 2gm daily. Check crp, procal am. Follow blood cultures/urine cx. 4. ?left-sided diverticulitis - previous CT on 03/31 showed such, and CT today is improved radiographically. Does have elevated wbc count. Does have abd pain and anorexia. Diverticulitis vs ischemic vs other. Cont rocephin/flagyl initiated by ER. Restrict diet to clears. IVF. 5. leukocytosis - persistent x 2 weeks - check procal, crp am. 2nd to #3 and #4?? repeat CBC am. 6. POD #10 s/p lumbar decompression/fusion - back pain controlled, incision clean. Neuro exam of legs intact. Urinary incontinence - suspect due to UTI rather than neurogenic. [id number] Dr Guaman asked to see. 7. fatigue - certainly has plenty of reasons to have such. Would renally dose her gabapentin. 8. COPD - w/o exacerbation. PT, OT. Hussein Hirsch MD PG Care Time/CCT Total # of Minutes Spent Total Time Spent with Patient: Total time spent is greater than 50% in coordination of care (as documented) at patient's floor/unit and/or counseling patient: Coding Level of Care Code 07729 Initial Inpt Care Lvl 3 Diagnoses Abdominal pain R10.30 Abdominal location: lower abdomen, unspecified Constipation K59.00 Constipation type: unspecified constipation type KWAME (acute kidney injury) N17.9 Acute urinary retention R33.8 Hyponatremia E87.1 Chronic back pain M54.42; G89.29 Back pain laterality: bilateral Back pain location: low back pain Sciatica laterality: sciatica of left side Sciatica presence: with sciatica Lumbar disc herniation with radiculopathy M51.16 Status post lumbar spine operative procedure for decompression of spinal cord Z98.890 Hypertension I10 Hypertension type: essential hypertension Pulmonary hypertension I27.20 Chronic respiratory failure with hypoxia J96.11 Multiple pulmonary nodules R91.8 COPD with emphysema J43.9 Emphysema type: unspecified Anxiety and depression F41.9; F32.9 (1) COPD with emphysema Emphysema type: unspecified Qualified Code(s): J43.9 - Emphysema, unspecified (2) Chronic back pain Back pain laterality: bilateral Back pain location: low back pain Sciatica laterality: sciatica of left side Sciatica presence: with sciatica Qualified Code(s): M54.42 - Lumbago with sciatica, left side; G89.29 - Other chronic pain (3) Abdominal pain Abdominal location: lower abdomen, unspecified Qualified Code(s): R10.30 - Lower abdominal pain, unspecified (4) Hypertension Hypertension type: essential hypertension Qualified Code(s): I10 - Essential (primary) hypertension (5) Constipation Constipation type: unspecified constipation type Qualified Code(s): K59.00 - Constipation, unspecified
[2020-04-14] MEDS ORDERED: ALBUT/IPRATROP 3MG/0.5MG NEB 3 ML VIAL INH PRN (16:51)
[2020-04-14] MEDS ORDERED: ALBUTEROL HFA 8 GM INHALER INH PRN (16:51)
[2020-04-14] MEDS ORDERED: ONDANSETRON INJ 2 MG/ML 2 ML VIAL IV PRN (16:51)
[2020-04-14] MEDS: bisacodyL 5 MG TABEC PO SCH (17:27)
[2020-04-14] MEDS: SODIUM CHLORIDE 0.9% 1000ML 1,000 ML IV SCH (17:27)
[2020-04-14] MEDS: POLYETHYLENE (MIRALAX) 17 GM PACK PO SCH (17:27)
[2020-04-14 18:29] LABS: Creatinine Urine Random 79.4 mg/dl
[2020-04-14] MEDS: busPIRone 15 MG TAB PO SCH (20:39)
--- NOTE | 2020-04-14 20:48 | Communication Note ---
Date of Service: April 14, 2020 Of note, called by nursing for report of patient fall. Patient did not hit head, no dizziness or lightheadedness, chest pain, SOB prior to fall. Reports left leg is a bit weak at baseline and it "got away from her". No new noted deficits, speech appropriate and patient is alert and oriented. Feels well. Will call if further changes.
[2020-04-14 20:50] LABS: BUN Creatinine Ratio 21.1 (10-20); Calcium 8.8 mg/dl (8.5-10.1); Creatinine Clr Calc Pharmacy 27.6 ml/min; Est GFR (African American) 32.4; Potassium 4.6 mmol/L (3.5-5.1)
[2020-04-14] MEDS ORDERED: GABAPENTIN 600 MG TAB PO SCH (21:00)
[2020-04-14] MEDS: metroNIDAZOLE 500 MG/100 ML BAG IV SCH (22:34)
[2020-04-15] MEDS: SODIUM CHLORIDE 0.9% 1000ML 1,000 ML IV SCH ×2 (05:02→14:54)
[2020-04-15] MEDS: metroNIDAZOLE 500 MG/100 ML BAG IV SCH ×3 (05:27→21:36)
[2020-04-15 06:24] LABS: Hemoglobin 10.5 g/dL (12.0-16.0); Mean Corpuscular Hemoglobin 30.9 pg (25-34); Mean Corpuscular Hgb Conc 33.9 g/dL (32-36); Mean Corpuscular Volume 91.2 fL (80-100); Mean Platelet Volume 8.9 fL (7.4-10.4); Platelet Count 238 K/uL (130-400); RDW Coefficient of Variation 13.6 % (11.5-14.5); White Blood Count 14.96 K/uL (4.8-10.8)
[2020-04-15 06:33] LABS: Prothrombin Time 10.8 Seconds (9.0-12.0)
[2020-04-15 06:56] LABS: Albumin Globulin Ratio 0.6 (0.9-2); Albumin Level 1.9 gm/dl (3.4-5.0); BUN Creatinine Ratio 23.8 (10-20); Bilirubin,Total 0.5 mg/dl (0.2-1); C Reactive Protein 14.6 mg/dl (0-0.29); Calcium 8.7 mg/dl (8.5-10.1); Creatinine Clr Calc Pharmacy 42.9 ml/min; Est GFR (African American) 55.3; Est GFR (Non-African American) 47.7; Globulin 3.3 gm/dl (2.5-4.0); Magnesium 2.1 mg/dl (1.8-2.4); Phosphorus 2.2 mg/dl (2.5-4.9); Potassium 4.6 mmol/L (3.5-5.1); Total Protein 5.2 gm/dl (6.4-8.2)
[2020-04-15] MEDS: FLUTICASONE/VILANTEROL 100/25MCG 14 PUFFS/INHALER INH SCH (08:26)
[2020-04-15] MEDS: busPIRone 15 MG TAB PO SCH ×2 (08:26→21:18)
[2020-04-15] MEDS: DULoxetine HCL 60 MG CAP PO SCH (08:27)
[2020-04-15] MEDS: DULoxetine HCL 30 MG CAP PO SCH (08:28)
[2020-04-15] MEDS: CHOLECALCIFEROL 1,000 UNITS 25 MCG TAB PO SCH (08:28)
[2020-04-15] MEDS: GABAPENTIN 300 MG CAP PO SCH ×3 (08:28→21:19)
[2020-04-15] MEDS: PANTOprazole 40 MG TAB PO SCH (08:29)
[2020-04-15] MEDS: UMECLIDINIUM BROMIDE 62.5MCG/BLISTER 7 PUFFS/INHALER INH SCH (08:29)
[2020-04-15] MEDS: bisacodyL 5 MG TABEC PO SCH (08:31)
[2020-04-15] MEDS: POLYETHYLENE (MIRALAX) 17 GM PACK PO SCH (08:31)
[2020-04-15] MEDS ORDERED: amLODIPine BESYLATE 5 MG TAB PO SCH (09:00)
--- NOTE | 2020-04-15 11:10 | Orthopedic Consultation ---
Date of Consultation April 15, 2020 Assessment & Plan (1) Status post lumbar spine operative procedure for decompression of spinal cord: At this time we would like to initiate physical therapy tomorrow. Continue to advance her bowel regiment. Hopefully she will progress appropriately and be able to discharge home. Present on Admission?: Yes History of Present Illness Reason for Consultation: Status post lumbar decompression fusion Attending Physician: Avtar Rouse History of Present Illness This is a 79-year-old female known to me the presents the emergency room last evening with significant abdominal discomfort and postoperative back pain. Is determined to have significant constipation contributing to her symptoms. This morning she is complaining of some generalized backaches and leg pain. She states she had a bit of a fall last evening when making her way to the bathroom. She was using a walker at the time. She denies any radicular leg pain at this point. Allergies Allergy/AdvReac Type Severity Reaction Status Date / Time nitrofurantoin Allergy Severe SOB, Verified 04/14/20 13:25 [From Macrobid] nausea, vomiting penicillin V Allergy Unknown CAN'T Verified 04/14/20 13:25 REMEMBER REACTION atorvastatin AdvReac Intermediate muscle pain Verified 04/14/20 13:25 ciprofloxacin AdvReac Intermediate REDNESS Verified 04/14/20 13:25 ALONG VEIN simvastatin AdvReac Intermediate muscle pain Verified 04/14/20 13:25 Home Medications Medication Instructions Recorded Confirmed Type buspirone 15 mg tablet 15 mg PO BID #60 tab 10/31/19 04/14/20 Rx cholecalciferol (vitamin D3) 50 mcg PO QAM 01/16/20 04/14/20 History albuterol sulfate 90 mcg/actuation 2 puff INH Q6H PRN #18 gm 01/25/20 04/14/20 Rx aerosol inhaler budesonide-formoterol HFA 160 2 puff INH BID #6 gm 01/25/20 04/14/20 Rx mcg-4.5 mcg/actuation aerosol inhaler ipratropium 0.5 mg-albuterol 3 mg 3 ml INH Q8H PRN #180 ml 01/25/20 04/14/20 Rx (2.5 mg base)/3 mL nebulization soln tiotropium bromide 2.5 2 puff INH QAM #4 g 01/25/20 04/14/20 Rx mcg/actuation mist for inhalation duloxetine 60 mg capsule,delayed See Rx Instructions PO QAM #1 cap 02/24/20 04/14/20 Rx release gabapentin 300 mg capsule 600 mg PO .COMPLEX cap 02/24/20 04/14/20 History pantoprazole 40 mg tablet,delayed 40 mg PO DAILY #90 tab 02/24/20 04/14/20 Rx release amlodipine 5 mg tablet 5 mg PO QAM #90 tab 02/27/20 04/14/20 Rx tramadol 50 mg PO Q6H PRN #30 tab 04/06/20 Rx lisinopril 10 mg PO DAILY #30 tab 04/12/20 04/14/20 Rx oxycodone 5 mg PO Q8H PRN #20 tab 04/12/20 04/14/20 Rx tramadol 50 mg PO Q8H PRN #20 tab 04/12/20 Rx duloxetine 30 mg PO DAILY 04/14/20 04/14/20 History Patient History Medical History Anxiety Anxiety and depression Breast cancer (12/26/13) "Abnormal left breast mammogram Status post ultrasound-guided biopsies 10/06/2013 that revealed benign status post left breast excisional biopsy 12/02/2013 revealing infiltrating ductal carcinoma estrogen receptor positive, progesterone receptor positive, 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, stage pT2 Status post reexcision and sentinel lymph node biopsy 12/26/2013 pN0 (i+) Oncotype DX score of 11 Status post completion of radiation therapy 04/13/2014 received 5006 cGy utilizing hypo-fractionation Required post radiation wound care " Chronic back pain Chronic respiratory failure with hypoxia COPD (chronic obstructive pulmonary disease) Depression Dyspnea on exertion Elevated alkaline phosphatase level Facet arthritis of lumbar region Hearing decreased History of breast cancer 5 years ago - Left + surgery, no chemo Hypercholesteremia Hypertension Lesion of right [place] kidney patient is unaware Limb alert care status LUE no lab draws Multiple pulmonary nodules On home oxygen therapy 2 LPM QHS PRN > HAS DIFFICULTY WITH KEEPING ON AT HS Osteoarthritis Osteoporosis Osteoporosis PAC (premature atrial contraction) Prediabetes Pulmonary hypertension Sciatica Sleep disturbance Spinal stenosis Spinal stenosis Statin intolerance Stenosis of iliac artery Vitamin D deficiency disease Surgical History H/O lumbosacral spine surgery History of breast biopsy History of cataract surgery right and left History of colonoscopy History of D&C History of partial mastectomy of left breast History of right knee joint replacement History of tooth extraction Hx of oral surgery S/P breast lumpectomy Slow to wake up after anesthesia Family History Daughter Breast cancer Mother Aortic aneurysm Renal failure Brother Prostate cancer Aortic aneurysm Father Aortic aneurysm Pure hypercholesterolemia Hypertension Grandmother (Maternal) Colon cancer Unknown Diabetes Other No family history of adverse response to anesthesia Denies family history of Ovarian cancer Myocardial infarction Social History Smoking Status: Former smoker Tobacco Type: Cigarettes Cigarettes Per Day: 10-20; Second Hand Exposure: No; Hx Alcohol Use: No Hx Substance Use: Yes Substance Use Type Other:: medical marijuana - bring card to make copy Preferred Language: [place]an Communication Ability: Effective Carpenter Repair Required: No Beliefs That Will Affect Care: None marital status: / Current Living Situation: Alone and Family Current Living Situation Comment: dtr stays with patient current occupational status: retired Other Information That Helps Us Care for You: No Feels Safe at Home: Yes Safety Concerns: Feels Safe At This Time Seatbelt Use: always Assistive Devices: Walker Physical Exam Physical Exam: On exam she has reasonable plantar flexion dorsiflexion is c ontinues to have quad deficit on the left. Results & Data ([facility]) Vital Signs (Past 12 Hours) Vital Signs Temp Pulse Resp BP Pulse Ox 04/15/20 07:38 36.7 C 97 H 18 104/65 96
--- NOTE | 2020-04-15 14:17 | Magnetic Resonance Report ---
MRI OF THE LUMBAR SPINE WITHOUT CONTRAST CLINICAL HISTORY: Postoperative evaluation. Back pain. Fall. COMPARISON STUDY: Lumbar spine MRI April 02, 2020. Lumbar spine fluoroscopic images April 04. TECHNIQUE: Utilizing a 1.5 Jennifer magnet and dedicated coil, multiplanar, multiecho imaging of the [facility] spine was performed without IV contrast. FINDINGS: For purposes of numbering on this exam, the L5-S1 disc space is assigned to axial image 27 of 30. Sli ght anterolisthesis of L3 on L4, L4 and L5 on L5 on S1 is unchanged. There are postoperative findings consistent with an L3-S1 posterior decompression with bilateral pedicle screw fusion. There are disc ectomies at the L3-L4 and L4-L5 levels. As expected, there is extensive fluid and edema within the op erative bed. Note is made of an operative bed subcutaneous fluid collection that measures 8.6 x 3 x 2 .3 cm. There are multiple small laminectomy bed fluid collections as expected. Note is made of an int racanalicular fluid collection within the posterior aspect of the canal at the L5 level. This has mil d to moderate mass effect upon the thecal sac. This exam is moderately compromised by motion artifact as well as susceptibility artifact from the surgical hardware. Evaluation of the canal is significan tly compromised on this examination. Mild presacral infiltration/fluid is noted. L1-2: Note is made of disc bulge. This is unchanged. There is mild narrowing of the central canal, la teral recesses and neural foramen, greater on the right. L2-3: Evaluation is compromised by artifact. There is no definite central canal stenosis. There is mi ld bilateral neural foraminal stenosis. L3-4: Evaluation is compromised by artifact. There is no definite central canal stenosis. There is ken spected moderate bilateral neural foraminal stenosis. L4-5: Evaluation is compromised by artifact. Intracanalicular fluid collection within the posterior a spect of the canal at the L5 level is noted. This is mild to moderate mass effect upon the thecal sac . There is mild bilateral neural foraminal stenosis. L5-S1: Evaluation is, must by artifact. There is a most mild central canal narrowing. There is mild t o moderate bilateral neural foraminal stenosis. IMPRESSION: 1. Exam significantly compromised by motion artifact and susceptibility artifact from the surgical stevens rdware. 2. Status post L3-S1 posterior decompression and bilateral pedicle screw fusion with L3-L4 and L4-L5 discectomies. Subcutaneous operative bed fluid collection that measures 8.6 x 3 x 2.3 cm. As expected , extensive edema and fluid within the operative bed. 3. Small intracanalicular fluid collection within the posterior aspect of the canal at the L5 level. This is likely epidural in location although a subdural collection could appear similar. This has mil d to moderate mass effect upon the thecal sac. If persistent symptoms, short-term follow-up MRI is re commended. 4. Moderate multilevel neural foraminal stenosis, as detailed above. This is suboptimally assessed on this exam. ACT 112: Negative or not required by law. Electronically signed by: Ephraim Breaux M.D. 04/15/2020 2:15 PM
--- NOTE | 2020-04-15 14:20 | XRay Report ---
XR lumbar spine 2-3V CLINICAL HISTORY: postop standing COMPARISON STUDY: Lumbar spine fluoroscopic images April 04, 2020. Lumbar spine MRI April 02. FINDINGS: Note is made of a posterior decompression with bilateral pedicle screw fusion from L3 throu gh S1 with interconnecting rods. Hardware is intact. There are L3-L4 and L4-L5 discectomies with inte rbody spacer placement. The L3-L4 interbody spacer is within the anterior aspect of the disc space. S light anterolisthesis of L3 on L4 and L4 on L5 is noted. Multilevel disc space narrowing within the l umbar spine is present. There is no acute lumbar spine fracture. A few bowel air-fluid levels are not ed on this upright projection. IMPRESSION: 1. Status post L3-S1 posterior decompression and bilateral posterior fusion with L3-L4 and L4-L5 disc ectomies. L3-L4 interbody spacer within the anterior aspect of disc space. Hardware intact. 2. No acute lumbar spine fracture. 3. Multilevel degenerative changes within the lumbar spine. ACT 112: Negative or not required by law. Electronically signed by: Ephraim Breaux M.D. 04/15/2020 2:18 PM
[2020-04-15] MEDS: cefTRIAXone SODIUM 2,000 MG in DEXTROSE 5% 50 ML IV SCH (15:24)
--- NOTE | 2020-04-15 20:32 | Hospitalist Progress Note ---
Date of Service April 15, 2020 Assessment & Plan (1) Abdominal pain: - Admit to med surg - CT abd reviewed - appears to have large fecal retention on imaging, will start with dulcolax po and mirilax po now. pt reports having small soft BM this morning, but this was the first in 5 days. -Will continue with mrialax daily and closely monitor. - Continue Ceftriaxone/flagyl for possible diverticulitis - Allow clear liquid diet for now (2) Constipation: - bowel regimen as above (3) KWAME (acute kidney injury): - IVFs with NSS at 125 ml/hr x 1 day -Creatinine improved back to baseline -On admission: Cr. 2.19, BUN 48, elevated compared to 04/11 Cr. 1.01 and BUN 32 - BP well controlled currently - had been previously taken off spironolactone. - Follow with AM labs (4) Acute urinary retention: - Bladder scan prn, straight cath prn for retention - Could also be due to polypharmacy and narcotic use over the past few days. - Consider spinal involvement causing both urinary and colonic retention, xray of the lumbar spine completed, but would not show suspected abscess, consider CT pending ortho spine consultation. (5) Hyponatremia: - Na 127 on admission, improved on 04/15 - NSS as above with KWAME, pt reports eating and drinking well, (6) Chronic back pain: - Hold PO narcotics, can use tylenol and tramadol for now, consider intermittent IV MS for breakthrough pain. (7) Lumbar disc herniation with radiculopathy: - S/p surgery (8) Status post lumbar spine operative procedure for decompression of spinal cord: - Will consult Dr. Guaman s/p surgery 10 days ago with worsening abd pain, urinary and fecal retention. Surgical incision appears to be well healing, no point tenderness over this region. (9) Hypertension: - Hold lisinopril and amlopidine with KWAME - Can use IV hydralazine prn if needed, BP stable at 120/85 currently. (10) Pulmonary hypertension: - Presumed. 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 She reports having a BM yesterday, her abdomen is lfeeling improved. Review of Systems Review of Systems: All systems reviewed & are unremarkable except as noted in HPI & below Physical Exam Physical Exam: General: awake, alert, no apparent distress, + obese with BMI of 31 Head: Normocephalic, atraumatic ENT: PERRL, EOMI, no pharyngeal exudate, mucous membranes moist, + top denture plate Chest: \\ clear breath sounds, no adventitious breath sounds Cardiac: Regular rate and rhythm, no murmur, no JVD, normal peripheral pulses, good capillary refill Abdominal: + hypoactive bs x 4 quad, soft, nondistended, nontender, no rebound or guarding : sharma cath in place, draining clear yellow urine Back: surgical incision over L3-S1 appears to be healing well, no tenderness over incision, no purulent material expressed, no surrounding erythema. Steri- strips present but loosening. Small area of ecchymosis over the R lower back resolving. Extremities: Normal inspection, no peripheral edema or erythema, calfs nontender to palpation Psych: Normal mood and affect Neuro: AAO x 3, strength intact bilaterally and rated 5/5, slightly weaker with hip flexion in the RLE compared to LLE but rated 5/5. no motor deficits, speech is clear, no peripheral sensory deficits Results & Data Results & Data ([facility]) Vital Signs (Past 12 Hours) Vital Signs Temp Pulse Resp BP Pulse Ox 04/15/20 16:25 91 04/15/20 15:51 37.0 C 92 H 18 134/79 PG Care Time/CCT Total # of Minutes Spent Total Time Spent with Patient: Total time spent is greater than 50% in coordination of care (as documented) at patient's floor/unit and/or counseling patient: Coding Level of Care Code 64176 Subseq Hosp Care Lvl 3 Diagnoses Abdominal pain R10.30 Abdominal location: lower abdomen, unspecified Constipation K59.00 Constipation type: unspecified constipation type KWAME (acute kidney injury) N17.9 Acute urinary retention R33.8 Hyponatremia E87.1 Chronic back pain M54.42; G89.29 Back pain laterality: bilateral Back pain location: low back pain Sciatica laterality: sciatica of left side Sciatica presence: with sciatica Lumbar disc herniation with radiculopathy M51.16 Status post lumbar spine operative procedure for decompression of spinal cord Z98.890 Hypertension I10 Hypertension type: essential hypertension Pulmonary hypertension I27.20 Chronic respiratory failure with hypoxia J96.11 Multiple pulmonary nodules R91.8 COPD with emphysema J43.9 Emphysema type: unspecified Anxiety and depression F41.9; F32.9 Time Spent (min) 35 (1) COPD with emphysema Emphysema type: unspecified Qualified Code(s): J43.9 - Emphysema, unspecified (2) Chronic back pain Back pain laterality: bilateral Back pain location: low back pain Sciatica laterality: sciatica of left side Sciatica presence: with sciatica Qualified Code(s): M54.42 - Lumbago with sciatica, left side; G89.29 - Other chronic pain (3) Abdominal pain Abdominal location: lower abdomen, unspecified Qualified Code(s): R10.30 - Lower abdominal pain, unspecified (4) Hypertension Hypertension type: essential hypertension Qualified Code(s): I10 - Essential (primary) hypertension (5) Constipation Constipation type: unspecified constipation type Qualified Code(s): K59.00 - Constipation, unspecified
[2020-04-16] MEDS: metroNIDAZOLE 500 MG/100 ML BAG IV SCH ×3 (06:05→22:54)
[2020-04-16 06:36] LABS: Hematocrit (blood only) 28.8 % (37-47); Hemoglobin 9.8 g/dL (12.0-16.0); Mean Corpuscular Volume 91.1 fL (80-100); Mean Platelet Volume 8.7 fL (7.4-10.4); Platelet Count 216 K/uL (130-400); RDW Coefficient of Variation 13.8 % (11.5-14.5); RDW Standard Deviation 45.5 fL (36.4-46.3); Red Blood Count 3.16 M/uL (4.2-5.4)
[2020-04-16 07:21] LABS: Albumin Globulin Ratio 0.6 (0.9-2); Albumin Level 1.8 gm/dl (3.4-5.0); Bilirubin,Total 0.7 mg/dl (0.2-1); Calcium 8.4 mg/dl (8.5-10.1); Creatinine Clr Calc Pharmacy 63.8 ml/min; Est GFR (African American) 89.3; Est GFR (Non-African American) 77.1; Globulin 2.9 gm/dl (2.5-4.0); Potassium 4.1 mmol/L (3.5-5.1); Total Protein 4.7 gm/dl (6.4-8.2)
[2020-04-16] MEDS: POLYETHYLENE (MIRALAX) 17 GM PACK PO SCH (07:43)
[2020-04-16] MEDS: UMECLIDINIUM BROMIDE 62.5MCG/BLISTER 7 PUFFS/INHALER INH SCH (07:43)
[2020-04-16] MEDS: FLUTICASONE/VILANTEROL 100/25MCG 14 PUFFS/INHALER INH SCH (07:44)
[2020-04-16] MEDS: GABAPENTIN 300 MG CAP PO SCH ×3 (07:44→19:42)
[2020-04-16] MEDS: DULoxetine HCL 60 MG CAP PO SCH (07:44)
[2020-04-16] MEDS: bisacodyL 5 MG TABEC PO SCH (07:44)
[2020-04-16] MEDS: PANTOprazole 40 MG TAB PO SCH (07:45)
[2020-04-16] MEDS: busPIRone 15 MG TAB PO SCH ×2 (07:45→19:41)
[2020-04-16] MEDS: DULoxetine HCL 30 MG CAP PO SCH (07:45)
[2020-04-16] MEDS: CHOLECALCIFEROL 1,000 UNITS 25 MCG TAB PO SCH (07:45)
--- NOTE | 2020-04-16 14:22 | Orthopedic Progress Note ---
Date of Service April 16, 2020 Assessment & Plan (1) Status post lumbar spine operative procedure for decompression of spinal cord: Admission and Anticipated Discharge Date Admission Date: April 14, 2020 I have reviewed the patient's x-rays and MRI. Do not appreciate any evidence of epidural abscess or infection. She does have a subcutaneous fluid collection. This appears contained. I would recommend physical therapy as tolerated. With hopefully she will progress throughout the weekend able to return to her home with the assistance of her family latter half of this week. Subjective Patient believes her pain is more controlled today. She feels more alert and comfortable today. Physical Exam Physical Exam: On exam she is much more alert and oriented. She is able to ambulate with her walker. She still exhibits significant weakness to the left quadricep. There is some modest swelling in the lumbar region under the incision however there is no erythema no drainage nontender to palpation. Results & Data ([facility]) Vital Signs (Past 12 Hours) Vital Signs Temp Pulse Resp BP Pulse Ox 04/16/20 07:22 16 93 04/16/20 07:15 36.7 C 107 H 18 96/64 L 88 L
[2020-04-16] MEDS: cefTRIAXone SODIUM 2,000 MG in DEXTROSE 5% 50 ML IV SCH (15:45)
--- NOTE | 2020-04-16 16:44 | Hospitalist Progress Note ---
Date of Service April 16, 2020 Assessment & Plan (1) Abdominal pain: CT abd on 04/14 appeared to have large fecal retention. Minimal stranding within the perisigmoid fat also seen. Minimal diverticulitis cannot be excluded. - Started on bisacodyl and Miralax on admission (04/14) - Continue ceftriaxone/flagyl for possible diverticulitis -> Short course given no present pain. - Advanced diet to normal on 04/16. (2) Acute urinary retention: Noted on admission. Could also be due to polypharmacy and narcotic use over the past few days. - Continue Sibley catheter (3) Status post lumbar spine operative procedure for decompression of spinal cord: S/p lumbar decompression and fusion with Dr. Guaman on 04/04/2020. - Dr. Guaman following - Lumbar MRI on 04/15 showed small intracanalicular fluid collection within the posterior aspect of the canal at the L5 level with mild to moderate mass effect upon the thecal sac. - Consider short-term MRI follow-up (4) Hypertension: BP is 130/70 today. - Hold lisinopril and amlodipine with KWAME - Spironolactone previously held last discharge. (5) Pulmonary hypertension: Presumed. Last echo from 11/09/18 reviewed showing elevated right ventricular systolic pressure at 30-40 mmHG - can only confirm with a right heart cath. - BP well controlled (6) Multiple pulmonary nodules: - Follow up per outpatient for routine CT imaging (7) COPD with emphysema: Has supplemental O2 at [facility] at 2 L for PRN use, pt reports she is not sure when she is supposed to wear it other than "when I feel like it." - Titrate O2 88-92 %, currently on room air - Continue home inhalers (8) Anxiety and depression: - Continue BuSpar, Cymbalta (9) DVT prophylaxis: Heparin 5000 units SQ Q12h Admission and Anticipated Discharge Date Admission Date: April 14, 2020 Subjective Some continued pain in the left knee and in the left thigh area. Denies any bowel movement, but feels she'll have one "any minute." Reports no fevers/chills, chest pain, shortness of breath, abdominal pain, nausea, or vom iting. Physical Exam Constitutional: WD/WN, vitals as above Eyes: EOM intact bilaterally; no conjunctival abnormality ENMT: external ear and nose normal, oropharynx normal Neck: trachea midline, no thyromegaly normal visual inspection Respiratory: normal respiratory effort, lungs clear to auscultation no respiratory distress Cardiovascular: RRR, no murmur, no edema Gastrointestinal (Abdomen): Inspection/Auscultation: abdomen normal to inspection; abdomen not distended Musculoskeletal: no cyanosis or clubbing, extremities motor strength 5/5 Skin: no rashes, warm and dry Neurologic: moves all extremities and awake Psychiatric: Orientation: alert, oriented to person and cooperative Results & Data Results & Data ([facility]) Vital Signs (Past 12 Hours) Vital Signs Temp Pulse Resp BP Pulse Ox 04/16/20 15:53 36.7 C 84 16 128/70 92 04/16/20 07:22 16 93 04/16/20 07:15 36.7 C 107 H 18 96/64 L 88 L PG Care Time/CCT Total # of Minutes Spent Total Time Spent with Patient: Total time spent is greater than 50% in coordination of care (as documented) at patient's floor/unit and/or counseling patient: Coding Level of Care Code 10135 Subseq Hosp Care Lvl 2 Diagnoses Abdominal pain R10.30 Abdominal location: lower abdomen, unspecified Acute urinary retention R33.8 Status post lumbar spine operative procedure for decompression of spinal cord Z98.890 Hypertension I10 Hypertension type: essential hypertension Pulmonary hypertension I27.20 Multiple pulmonary nodules R91.8 COPD with emphysema J43.9 Emphysema type: unspecified Anxiety and depression F41.9; F32.9 DVT prophylaxis Z29.9 (1) Abdominal pain Abdominal location: lower abdomen, unspecified Qualified Code(s): R10.30 - Lower abdominal pain, unspecified (2) Hypertension Hypertension type: essential hypertension Qualified Code(s): I10 - Essential (primary) hypertension (3) COPD with emphysema Emphysema type: unspecified Qualified Code(s): J43.9 - Emphysema, unspecified
[2020-04-16] MEDS: traMADol HCL 50 MG TABLET PO PRN ×2 (17:57→22:58)
[2020-04-16] MEDS: ACETAMINOPHEN 325 MG TAB PO PRN (19:40)
[2020-04-16] MEDS: HEPARIN SOD 5,000 UNIT/0.5 ML VIAL SQ SCH (19:42)
[2020-04-17] MEDS: metroNIDAZOLE 500 MG/100 ML BAG IV SCH ×3 (05:29→22:10)
[2020-04-17] MEDS: traMADol HCL 50 MG TABLET PO PRN ×3 (05:44→20:12)
[2020-04-17] MEDS: UMECLIDINIUM BROMIDE 62.5MCG/BLISTER 7 PUFFS/INHALER INH SCH (07:27)
[2020-04-17] MEDS: CHOLECALCIFEROL 1,000 UNITS 25 MCG TAB PO SCH (07:28)
[2020-04-17] MEDS: FLUTICASONE/VILANTEROL 100/25MCG 14 PUFFS/INHALER INH SCH (07:28)
[2020-04-17 07:36] LABS: Hematocrit (blood only) 27.4 % (37-47); Hemoglobin 9.3 g/dL (12.0-16.0); Mean Corpuscular Hemoglobin 30.6 pg (25-34); Mean Corpuscular Hgb Conc 33.9 g/dL (32-36); Mean Corpuscular Volume 90.1 fL (80-100); Mean Platelet Volume 8.7 fL (7.4-10.4); Platelet Count 240 K/uL (130-400); RDW Coefficient of Variation 13.9 % (11.5-14.5); RDW Standard Deviation 46.3 fL (36.4-46.3); Red Blood Count 3.04 M/uL (4.2-5.4); White Blood Count 7.01 K/uL (4.8-10.8)
[2020-04-17] MEDS: DULoxetine HCL 60 MG CAP PO SCH (07:39)
[2020-04-17] MEDS: PANTOprazole 40 MG TAB PO SCH (07:39)
[2020-04-17] MEDS: GABAPENTIN 300 MG CAP PO SCH ×3 (07:39→22:09)
[2020-04-17] MEDS: HEPARIN SOD 5,000 UNIT/0.5 ML VIAL SQ SCH ×2 (07:40→22:10)
[2020-04-17] MEDS: busPIRone 15 MG TAB PO SCH ×2 (07:40→22:09)
[2020-04-17] MEDS: POLYETHYLENE (MIRALAX) 17 GM PACK PO SCH (07:48)
[2020-04-17] MEDS: bisacodyL 5 MG TABEC PO SCH (07:48)
[2020-04-17 08:08] LABS: Albumin Globulin Ratio 0.6 (0.9-2); Albumin Level 1.7 gm/dl (3.4-5.0); BUN Creatinine Ratio 17.5 (10-20); Bilirubin,Total 0.4 mg/dl (0.2-1); Calcium 8.6 mg/dl (8.5-10.1); Creatinine Clr Calc Pharmacy 56.2 ml/min; Est GFR (African American) 76.6; Est GFR (Non-African American) 66.1; Potassium 3.4 mmol/L (3.5-5.1); Total Protein 4.7 gm/dl (6.4-8.2)
[2020-04-17] MEDS: DULoxetine HCL 30 MG CAP PO SCH (08:15)
--- NOTE | 2020-04-17 10:18 | Orthopedic Progress Note ---
Date of Service April 17, 2020 Assessment & Plan (1) Status post lumbar spine operative procedure for decompression of spinal cord: Admission and Anticipated Discharge Date Admission Date: April 14, 2020 This time we will continue physical therapy occupational therapy and hopefully discharge home the latter half of this week. She will have home health. Subjective Patient feels she is steadily improving. She notes some left greater than right buttock discomfort. Physical Exam Physical Exam: Exam she continues to exhibit weakness to the left quadricep but does appear alert and oriented and much more comfortable today. Results & Data ([facility]) Vital Signs (Past 12 Hours) Vital Signs Temp Pulse Resp BP Pulse Ox 04/17/20 07:12 36.5 C 78 16 113/66 91 04/16/20 23:17 36.9 C 75 18 102/59 L 93
--- NOTE | 2020-04-17 15:40 | Hospitalist Progress Note ---
Date of Service April 17, 2020 Assessment & Plan (1) Abdominal pain: CT abd on 04/14 appeared to have large fecal retention. Minimal stranding within the perisigmoid fat also seen. Minimal diverticulitis cannot be excluded. - Started on bisacodyl and Miralax on admission (04/14) - Continue ceftriaxone/flagyl for possible diverticulitis -> Short course given no present pain. - Advanced diet to normal on 04/16. - On 04/17, lowered the dosages and stopped them due to significant bowel mov ements. (2) Acute urinary retention: Noted on admission. Could also be due to polypharmacy and narcotic use over the past few days. - Sibley catheter removed on 04/17. Will monitor for retention. (3) Status post lumbar spine operative procedure for decompression of spinal cord: S/p lumbar decompression and fusion with Dr. Guaman on 04/04/2020. - Dr. Guaman following - Lumbar MRI on 04/15 showed small intracanalicular fluid collection within the posterior aspect of the canal at the L5 level with mild to moderate mass effect upon the thecal sac. - Seen with Dr. Guaman on 04/17 - Feels spinal surgery is stable and encourages PT/OT. (4) Hypertension: BP is 90/50 today. - Hold lisinopril and amlodipine with KWAME - Spironolactone previously held last discharge. (5) Pulmonary hypertension: Presumed. Last echo from 11/09/18 reviewed showing elevated right ventricular systolic pressure at 30-40 mmHG - can only confirm with a right heart cath. - BP well controlled (6) Multiple pulmonary nodules: - Follow up per outpatient for routine CT imaging (7) COPD with emphysema: Has supplemental O2 at [facility] at 2 L for PRN use, pt reports she is not sure when she is supposed to wear it other than "when I feel like it." - Titrate O2 88-92 %, currently on room air - Continue home inhalers (8) Anxiety and depression: - Continue Saman Jang (9) DVT prophylaxis: Heparin 5000 units SQ Q12h Admission and Anticipated Discharge Date Admission Date: April 14, 2020 Subjective Is having some buttock pain today which she reports radiates down the left leg. Reports no fevers/chills, chest pain, shortness of breath, abdominal pain, nausea, or vomiting. Physical Exam Constitutional: WD/WN, vitals as above Eyes: EOM intact bilaterally; no conjunctival abnormality ENMT: external ear and nose normal, oropharynx normal Neck: trachea midline, no thyromegaly normal visual inspection Respiratory: normal respiratory effort, lungs clear to auscultation no respiratory distress Cardiovascular: RRR, no murmur, no edema Gastrointestinal (Abdomen): Inspection/Auscultation: abdomen normal to inspection; abdomen not distended Musculoskeletal: no cyanosis or clubbing, extremities motor strength 5/5 Skin: no rashes, warm and dry Neurologic: moves all extremities and awake Psychiatric: Orientation: alert, oriented to person and cooperative Results & Data Results & Data ([facility]) Vital Signs (Past 12 Hours) Vital Signs Temp Pulse Resp BP Pulse Ox 04/17/20 15:09 36.6 C 87 18 92/52 L 93 04/17/20 07:12 36.5 C 78 16 113/66 91 PG Care Time/CCT Total # of Minutes Spent Total Time Spent with Patient: Total time spent is greater than 50% in coordination of care (as documented) at patient's floor/unit and/or counseling patient: Coding Level of Care Code 54085 Subseq Hosp Care Lvl 2 Diagnoses Abdominal pain R10.30 Abdominal location: lower abdomen, unspecified Acute urinary retention R33.8 Status post lumbar spine operative procedure for decompression of spinal cord Z98.890 Hypertension I10 Hypertension type: essential hypertension Pulmonary hypertension I27.20 Multiple pulmonary nodules R91.8 COPD with emphysema J43.9 Emphysema type: unspecified Anxiety and depression F41.9; F32.9 DVT prophylaxis Z29.9 (1) Abdominal pain Abdominal location: lower abdomen, unspecified Qualified Code(s): R10.30 - Lower abdominal pain, unspecified (2) Hypertension Hypertension type: essential hypertension Qualified Code(s): I10 - Essential (primary) hypertension (3) COPD with emphysema Emphysema type: unspecified Qualified Code(s): J43.9 - Emphysema, unspecified
[2020-04-17] MEDS: cefTRIAXone SODIUM 2,000 MG in DEXTROSE 5% 50 ML IV SCH (15:50)
[2020-04-18] MEDS: metroNIDAZOLE 500 MG/100 ML BAG IV SCH ×4 (05:27→21:18)
[2020-04-18 06:37] LABS: Hematocrit (blood only) 31.2 % (37-47); Hemoglobin 10.5 g/dL (12.0-16.0); Mean Corpuscular Hemoglobin 30.3 pg (25-34); Mean Corpuscular Hgb Conc 33.7 g/dL (32-36); Mean Corpuscular Volume 90.2 fL (80-100); Mean Platelet Volume 8.7 fL (7.4-10.4); Platelet Count 255 K/uL (130-400); RDW Coefficient of Variation 13.9 % (11.5-14.5); RDW Standard Deviation 45.8 fL (36.4-46.3); Red Blood Count 3.46 M/uL (4.2-5.4); White Blood Count 7.25 K/uL (4.8-10.8)
[2020-04-18 07:11] LABS: BUN Creatinine Ratio 11.7 (10-20); Calcium 9.1 mg/dl (8.5-10.1); Creatinine Clr Calc Pharmacy 53.6 ml/min; Est GFR (African American) 72.4; Est GFR (Non-African American) 62.5; Magnesium 1.7 mg/dl (1.8-2.4); Potassium 3.9 mmol/L (3.5-5.1)
[2020-04-18] MEDS: traMADol HCL 50 MG TABLET PO PRN ×2 (07:36→18:58)
[2020-04-18] MEDS: UMECLIDINIUM BROMIDE 62.5MCG/BLISTER 7 PUFFS/INHALER INH SCH (09:02)
[2020-04-18] MEDS: DULoxetine HCL 60 MG CAP PO SCH (09:03)
[2020-04-18] MEDS: DULoxetine HCL 30 MG CAP PO SCH (09:03)
[2020-04-18] MEDS: FLUTICASONE/VILANTEROL 100/25MCG 14 PUFFS/INHALER INH SCH (09:04)
[2020-04-18] MEDS: GABAPENTIN 300 MG CAP PO SCH ×3 (09:04→21:17)
[2020-04-18] MEDS: PANTOprazole 40 MG TAB PO SCH (09:05)
[2020-04-18] MEDS: CHOLECALCIFEROL 1,000 UNITS 25 MCG TAB PO SCH (09:05)
[2020-04-18] MEDS: busPIRone 15 MG TAB PO SCH ×2 (09:05→21:17)
[2020-04-18] MEDS: POLYETHYLENE (MIRALAX) 17 GM PACK PO SCH (09:06)
[2020-04-18] MEDS: HEPARIN SOD 5,000 UNIT/0.5 ML VIAL SQ SCH ×2 (09:06→21:17)
--- NOTE | 2020-04-18 11:26 | Orthopedic Progress Note ---
Date of Service April 18, 2020 Assessment & Plan (1) Status post lumbar spine operative procedure for decompression of spinal cord: Admission and Anticipated Discharge Date Admission Date: April 14, 2020 Patient stable from an orthopedic standpoint she could go home with home physical therapy when medically stable. Subjective Back pain is controlled leg symptoms improving Physical Exam Physical Exam: Patient still has significant deficits to the left quadricep. Otherwise neurologically intact. Results & Data ([facility]) Vital Signs (Past 12 Hours) Vital Signs Temp Pulse Resp BP Pulse Ox 04/18/20 07:16 36.6 C 86 18 129/81 93
--- NOTE | 2020-04-18 12:23 | Hospitalist Progress Note ---
Date of Service April 18, 2020 Assessment & Plan (1) Status post lumbar spine operative procedure for decompression of spinal cord: S/p lumbar decompression and fusion with Dr. Guaman on 04/04/2020. - Dr. Guaman following - Lumbar MRI on 04/15 showed small intracanalicular fluid collection within the posterior aspect of the canal at the L5 level with mild to moderate mass effect upon the thecal sac. - Seen with Dr. Guaman on 04/17 - Feels spinal surgery is stable and encourages PT/OT. - Plan for home with family tomorrow. (2) Abdominal pain: CT abd on 04/14 appeared to have large fecal retention. Minimal stranding within the perisigmoid fat also seen. Minimal diverticulitis cannot be excluded. - Started on bisacodyl and Miralax on admission (04/14) - Continue ceftriaxone/flagyl for possible diverticulitis -> Short course given no present pain. - Advanced diet to normal on 04/16. - On 04/17, lowered the dosages and stopped them due to significant bowel movements. On 04/18, still having BMs, but not watery. (3) Acute urinary retention: Noted on admission. Could also be due to polypharmacy and narcotic use over the past few days. - Sibley catheter removed on 04/17. Will monitor for retention. (4) Hypertension: BP is 130/80 today. - Hold lisinopril and amlodipine with KWAME - Spironolactone previously held last discharge. (5) Pulmonary hypertension: Presumed. Last echo from 11/09/18 reviewed showing elevated right ventricular systolic pressure at 30-40 mmHG - can only confirm with a right heart cath. - BP well controlled (6) Multiple pulmonary nodules: - Follow up per outpatient for routine CT imaging (7) COPD with emphysema: Has supplemental O2 at [facility] at 2 L for PRN use, pt reports she is not sure when she is supposed to wear it other than "when I feel like it." - Titrate O2 88-92 %, currently on room air - Continue home inhalers (8) Anxiety and depression: More depressed as admission has dragged on. Did seem happier and express hope with thought of going home, so I do not feel we are at a concerning point at this time. - Continue BuSpar, Cymbalta (9) DVT prophylaxis: Heparin 5000 units SQ Q12h Admission and Anticipated Discharge Date Admission Date: April 14, 2020 Subjective Reports that she is depressed today and that she very much wants to go home. Reports no fevers/chills, chest pain, shortness of breath, abdominal pain, nausea, or vomiting. Physical Exam Constitutional: WD/WN, vitals as above Eyes: EOM intact bilaterally; no conjunctival abnormality ENMT: external ear and nose normal, oropharynx normal Neck: trachea midline, no thyromegaly normal visual inspection Respiratory: normal respiratory effort, lungs clear to auscultation no respiratory distress Cardiovascular: RRR, no murmur, no edema Gastrointestinal (Abdomen): Inspection/Auscultation: abdomen normal to inspection; abdomen not distended Musculoskeletal: no cyanosis or clubbing, extremities motor strength 5/5 Skin: no rashes, warm and dry Neurologic: moves all extremities and awake Psychiatric: Orientation: alert, oriented to person and cooperative Results & Data Results & Data ([facility]) Vital Signs (Past 12 Hours) Vital Signs Temp Pulse Resp BP Pulse Ox 04/18/20 07:16 36.6 C 86 18 129/81 93 PG Care Time/CCT Total # of Minutes Spent Total Time Spent with Patient: Total time spent is greater than 50% in coordination of care (as documented) at patient's floor/unit and/or counseling patient: Coding Level of Care Code 03861 Subseq Hosp Care Lvl 2 Diagnoses Status post lumbar spine operative procedure for decompression of spinal cord Z98.890 Abdominal pain R10.30 Abdominal location: lower abdomen, unspecified Acute urinary retention R33.8 Hypertension I10 Hypertension type: essential hypertension Pulmonary hypertension I27.20 Multiple pulmonary nodules R91.8 COPD with emphysema J43.9 Emphysema type: unspecified Anxiety and depression F41.9; F32.9 DVT prophylaxis Z29.9 (1) Abdominal pain Abdominal location: lower abdomen, unspecified Qualified Code(s): R10.30 - Lower abdominal pain, unspecified (2) Hypertension Hypertension type: essential hypertension Qualified Code(s): I10 - Essential (primary) hypertension (3) COPD with emphysema Emphysema type: unspecified Qualified Code(s): J43.9 - Emphysema, unspecified
[2020-04-18] MEDS: cefTRIAXone SODIUM 2,000 MG in DEXTROSE 5% 50 ML IV SCH (14:24)
[2020-04-19] MEDS: traMADol HCL 50 MG TABLET PO PRN ×2 (03:49→07:47)
[2020-04-19] MEDS: metroNIDAZOLE 500 MG/100 ML BAG IV SCH (05:58)
[2020-04-19] MEDS: ACETAMINOPHEN 325 MG TAB PO PRN (08:57)
[2020-04-19] MEDS: busPIRone 15 MG TAB PO SCH (08:58)
[2020-04-19] MEDS: FLUTICASONE/VILANTEROL 100/25MCG 14 PUFFS/INHALER INH SCH (08:58)
[2020-04-19] MEDS: HEPARIN SOD 5,000 UNIT/0.5 ML VIAL SQ SCH (08:59)
[2020-04-19] MEDS: DULoxetine HCL 60 MG CAP PO SCH (08:59)
[2020-04-19] MEDS: DULoxetine HCL 30 MG CAP PO SCH (09:00)
[2020-04-19] MEDS: UMECLIDINIUM BROMIDE 62.5MCG/BLISTER 7 PUFFS/INHALER INH SCH (09:00)
[2020-04-19] MEDS: POLYETHYLENE (MIRALAX) 17 GM PACK PO SCH (09:01)
[2020-04-19] MEDS: CHOLECALCIFEROL 1,000 UNITS 25 MCG TAB PO SCH (09:02)
[2020-04-19] MEDS: PANTOprazole 40 MG TAB PO SCH (09:03)
[2020-04-19] MEDS: GABAPENTIN 300 MG CAP PO SCH ×2 (09:05→12:43)
--- NOTE | 2020-04-19 16:57 | Discharge Summary ---
Date of Service April 19, 2020 Admission HPI Per Admitting Provider This is a 79 yo F who was recently admitted here from 03/31/2020 through 04/12/2020 for a history of chronic back pain with laminectomy and persistent L5 radiculopathy, spinal stenosis with history of epidural injections in January then underwent spinal decompression and fusion by Dr. Guaman on 04/04/2020, and had an extended hospital course due to back pain, KWAME with leukocytosis, as well as pt decision on home vs. rehab. Throughout that stay the patient had chronic leukocytosis that was attributed to outpatient steroids as there was no focal signs of infection, her UA was contaminated but the patient was asymptomatic. Her WBC on 04/10 was 20, and is consistent with today's level of 20.88 on admission. Her kidney function is worse with creatinine 2.19 and BUN 48 compared to creatinine 0.93 on discharge. She was discharged to [facility]. Pt has had increasing abdominal pain over the last 2 days, currently rated as a 6/10, with constipation and urinary retention. She was eating and drinking w ell. Reports having small soft BM this morning, but this was the first in 5 days. Pt reports she asked to be brought to the hospital this morning because of her pain. Pt is unsure if she was taking stool softeners or fiber, but states "I'm taking all the medications she's supposed to be taking. A CT of the abd/pelvis was completed and is negative for bowel obstruction, free air but does show moderate colonic fecal retention, colonic diverticulosis, minimal stranding within perisigmoid fat which is concerning for possible diverticulitis. She has been started on ceftraixone and flagyl IV. She denies any fever, chills or sweats. Other PMHx includes HTN, HLD, COPD with emphysema, chronic respiratory failure with hypoxia, prediabetes, pulmonary hypertension, KWAME, vitamin D deficiency, s ciatica, osteoporosis, and multiple pulmonary nodules. Principal Diagnosis Mild diverticulitis Continue pain from surgical recovery Discharge Exam Constitutional WD/WN, vitals as above Eyes EOM intact bilaterally; no conjunctival abnormality ENMT external ear and nose normal, oropharynx normal Neck trachea midline, no thyromegaly normal visual inspection Respiratory normal respiratory effort, lungs clear to auscultation no respiratory distress Cardiovascular RRR, no murmur, no edema Gastrointestinal (Abdomen) Inspection/Auscultation: abdomen normal to inspection; abdomen not distended Musculoskeletal no cyanosis or clubbing, extremities motor strength 5/5 Skin no rashes, warm and dry Neurologic moves all extremities and awake Psychiatric Orientation: alert, oriented to person and cooperative Discharge Data Allergies Allergy/AdvReac Type Severity Reaction Status Date / Time nitrofurantoin Allergy Severe SOB, Verified 04/14/20 13:25 [From Macrobid] nausea, vomiting penicillin V Allergy Unknown CAN'T Verified 04/14/20 13:25 REMEMBER REACTION atorvastatin AdvReac Intermediate muscle pain Verified 04/14/20 13:25 ciprofloxacin AdvReac Intermediate REDNESS Verified 04/14/20 13:25 ALONG VEIN simvastatin AdvReac Intermediate muscle pain Verified 04/14/20 13:25 Consultations 04/14/20 14:27 ED Decision to Admit Stat 04/14/20 16:51 Consult Case Management - Discharge Planning Routine Consult Orthopedic Surgery Routine Ordered Studies 04/14/20 13:18 CT abd pelvis wo con Stat 04/15/20 11:23 MR lumbar spine wo con Urgent Hospital Course (1) Status post lumbar spine operative procedure for decompression of spinal cord: S/p lumbar decompression and fusion with Dr. Guaman on 04/04/2020. - Dr. Guaman following - Lumbar MRI on 04/15 showed small intracanalicular fluid collection within the posterior aspect of the canal at the L5 level with mild to moderate mass effect upon the thecal sac. - Seen with Dr. Guaman on 04/17 - Feels spinal surgery is stable and encourages PT/OT. - Plan for home with family. (2) Abdominal pain: CT abd on 04/14 appeared to have large fecal retention. Minimal stranding within the perisigmoid fat also seen. Minimal diverticulitis cannot be excluded. - Started on bisacodyl and Miralax on admission (04/14) - Continue ceftriaxone/flagyl for possible diverticulitis -> Short course given no present pain. - Advanced diet to normal on 04/16. - On 04/17, lowered the dosages and stopped them due to significant bowel movements. On 04/18, still having BMs, but not watery. (3) Acute urinary retention: Noted on admission. Could also be due to polypharmacy and narcotic use over the past few days. - Sibley catheter removed on 04/17. Will monitor for retention. (4) Hypertension: BP is 130/80 today. - Continue amlodipine on discharge. - Hold lisinopril and spironolactone previously held last discharge. (5) Pulmonary hypertension: Presumed. Last echo from 11/09/18 reviewed showing elevated right ventricular systolic pressure at 30-40 mmHG - can only confirm with a right heart cath. - BP well controlled (6) Multiple pulmonary nodules: - Follow up per outpatient for routine CT imaging (7) COPD with emphysema: Has supplemental O2 at [facility] at 2 L for PRN use, pt reports she is not sure when she is supposed to wear it other than "when I feel like it." - Titrate O2 88-92 %, currently on room air - Continue home inhalers (8) Anxiety and depression: More depressed as admission has dragged on. Did seem happier and express hope with thought of going home, so I do not feel we are at a concerning point at this time. - Continue BuSpar, Cymbalta (9) DVT prophylaxis: Heparin 5000 units SQ Q12h Total Time Total Time Spent Total Time Spent (In Minutes): 35 Discharge Plan Discharge Items Patient Disposition: Home - Home Health Services Reason For Visit: ABDOMINAL PAIN,S/P LUMBAR DECOMPRESSION FUSION Discharge Diagnosis: Mild diverticulitis (colon infection) Constipation Continued back pain from surgery Activity: Resume your previous activity Non-emergency contact: Primary Care Provider and Surgeon Call non-emergency contact if: your symptoms worsen and your temperature is above 101 Follow-up/Referrals: Annette Dowd MD [Physician] - 04/26/20 11:20 am (Please call Dr. Diana's office for a follow up in the next week or two on your abdominal pain and constipation.) Jose Guaman DO [Surgeon] - 04/24/20 9:50 am (Please see Dr. Guaman at your regularly scheduled follow-up. If you are not sure of the date/time, please call the office to clarify.) Noemí Olson at [place] [Primary Care Provider] - Diet: Regular Addtl Attending Provider Instructions: You were admitted to the hospital with abdominal pain and continued back pain. The abdominal pain was likely from a very mild diverticulitis (infection of the large intestine or colon) which we have treated with antibiotics. We are sending another 3 days worth of antibiotics to ensure complete treatment. Your first dose should be tonight before bedtime. You also had some mild constipation (likely from pain medication) that we alleviated with [id number] medications such as Dulolax and Miralax. Please machine operator picker one of these at the pharmacy to have at home in case you have further constipation. Your blood pressure here was on the low side of normal, so we stopped your lisinopril. Please follow up with your PCP for a blood pressure check. As you feel better, your blood pressure will likely start to edge back up, so you may need to restart one or more of your prior blood pressure medications. Finally, you had some continuing back pain. Dr. Guaman saw and examined you, and got an MRI of your back as well. These show the expected post-operative changes which involve some swelling. It will take time for the surgical site to heal, and I hope that your pain continues to improve over the next few weeks. It may take weeks or even months to see full recovery of the nerves that were compressed, so please take heart and keep working hard. Please follow up with Dr. Guaman at your next scheduled appointment or call the office to confirm when that is if you don't have it already scheduled. Please call Dr. Guaman's office with worsening pain, fevers, redness or weeping of the surgical site, worsening weakness of your leg, or other concerns. Please see your PCP in 1-2 weeks to be sure your diverticulitis and constipation are improving. Pending Studies at Discharge: No Stand-Alone Forms: My [facility], Smoking Cessation Medications and DC Order Prescriptions: New polyethylene glycol 3350 [Miralax] 17 gram Powder In Packet 17 g PO DAILY Qty: 0 RF: 0 ciprofloxacin HCl [Cipro] 500 mg tablet 500 mg PO BID Qty: 6 RF: 0 metronidazole 500 mg tablet 500 mg PO TID Qty: 9 RF: 0 Continued amlodipine 5 mg tablet 5 mg PO QAM Qty: 90 RF: 3 gabapentin 300 mg capsule 600 mg PO .COMPLEX RF: 0 duloxetine 60 mg capsule,delayed release(DR/EC) See Rx Instructions PO QAM Qty: 1 RF: 0 pantoprazole 40 mg tablet,delayed release (DR/EC) 40 mg PO DAILY Qty: 90 RF: 3 ipratropium-albuterol 0.5 mg-3 mg(2.5 mg base)/3 mL solution for nebulization 3 ml INH Q8H PRN (Reason: shortness of breath or wheezing) Qty: 180 RF: 5 Symbicort 160-4.5 mcg/actuation HFA aerosol inhaler 2 puff INH BID Qty: 6 RF: 5 Spiriva Respimat 2.5 mcg/actuation mist 2 puff INH QAM Qty: 4 RF: 5 albuterol sulfate 90 mcg/actuation HFA aerosol inhaler 2 puff INH Q6H PRN (Reason: Shortness Of Breath Or Wheezing) Qty: 18 RF: 3 buspirone 15 mg tablet 15 mg PO BID Qty: 60 RF: 5 duloxetine 30 mg capsule,delayed release(DR/EC) 30 mg PO DAILY RF: 0 cholecalciferol (vitamin D3) 50 mcg (2,000 unit) tablet 50 mcg PO QAM RF: 0 Changed tramadol 50 mg tablet 50 mg PO BID PRN (Reason: pain, moderate) Qty: 20 RF: 0 Discontinued lisinopril 10 mg tablet 10 mg PO DAILY Qty: 30 RF: 0 oxycodone 5 mg tablet 5 mg PO Q8H PRN (Reason: severe pain (scale score 7-10)) Qty: 20 RF: 0 tramadol 50 mg tablet 50 mg PO Q8H PRN (Reason: moderate pain (scale score 5-6)) Qty: 20 RF: 0 Discharge Orders: Discharge Order (Routine); Ordered 04/19/20 Ordered By: Cleveland Finch/Other Patient Handouts: Abdominal Pain Admission Data Admit Date/Time: 04/14/20 15:22 Attending Provider: Cleveland Doss Admit Provider: Hussein Hirsch Primary Care Provider: Noemí Olson [place] Other Providers: Jose Guaman ; Cleveland Doss ; [facility] Other Interventions: Discharge Summary Assessment (RN) Last Done: 04/19/20 13:44 Coding Level of Care Code D/C Day Management >30 mins Diagnoses Status post lumbar spine operative procedure for decompression of spinal cord Z98.890 Abdominal pain R10.30 Abdominal location: lower abdomen, unspecified Acute urinary retention R33.8 Hypertension I10 Hypertension type: essential hypertension Pulmonary hypertension I27.20 Multiple pulmonary nodules R91.8 COPD with emphysema J43.9 Emphysema type: unspecified Anxiety and depression F41.9; F32.9 DVT prophylaxis Z29.9
== END 2020-04-19 14:22 | disposition home health service (06) | DRG 683 ==
LOC: ED 12:15 → SUATTDRO 15:22 → 3N 15:22

== ENCOUNTER 2020-04-23 11:04 | Inpatient (IN) ==
--- NOTE | 2020-04-23 11:40 | Emergency Department Note ---
Impression & Plan Back pain, Ambulatory dysfunction ED Provider Note INFORMANT: Patient ED PROVIDER(S): Sinan Huffman MD CHIEF COMPLAINT: Back pain PLAN: Disposition: Admitted none Condition: Good Outpatient prescription management: none Referral: None MEDICAL DECISION MAKING: Patient presented because of inability to function at home. She has had recent back surgery. A CBC and chemistry panel were unremarkable. The patient was given a dose of oral [place] for her pain. I did consult with her spine surgeon. He felt that the patient would be a best candidate for rehab and that the patient initially refused after surgery. I did discuss case with case management. Due to insurance issues she will require inpatient evaluation here for placement. I did consult with the hospitalist service. The patient was evaluated in ER admitted for further management. Triage Nursing notes reviewed and agree them. Prior medical records reviewed regarding patient's recent spine surgery on the . Vital Signs: reviewed and remarkable for no significant abnormalities Differential diagnosis: Musculoskeletal, exacerbation chronic back pain , postoperative complication, disc herniation, fracture, metastatic disease, cord compression, discitis, sciatica, cauda equina, infection, aortic disease, renal colic, gastrointestin al, as well as other pathologies. Diagnostics interpreted by me: Imaging studies: Deferred Consultation(s): Case management [facility] Hospitalist HPI: The patient is a 79 year old female who presents to the Emergency Room with complaints of back pain. This started months ago. The patient has had back surgery on April [address] Guaman. She notes having the same problem in her left leg with numbness and weakness. She states she has not been able to ambulate at home. She was recommended for inpatient rehab prior to discharge but the patient declined. She states she has not been able to function at home. Home health directed her to the emergency department today for evaluation and inpatient treatment. The patient also notes the following associated symptoms, none. The patient has found no relieving factors. Current pain is rated as 6/10. Pt denies LOC, headache, fevers, chills, diaphoresis, visual changes, neck pain, chest pain, breathing difficulties, nausea, vomiting, abdominal pain, melena, hematochezia, urinary symptoms, loss of bowel or bladder, saddle anesthesia, lymphadenopathy, rash, or other complaints. ROS: See above HPI for pertinent positives & negatives. A total of 10 systems reviewed and were otherwise negative. PAST MEDICAL HISTORY:See Below , chronic back pain, spinal stenosis, KWAME PAST SURGICAL HISTORY:See Below, lumbar fusion, lumbar decompression FAMILY HISTORY:See Below SOCIAL HISTORY:See Below, lives alone HOME MEDICATIONS:See Below ALLERGIES:See Below VITALS:See Below PHYSICAL EXAMINATION: GENERAL: Awake, alert, well-appearing, in no distress HENT: Normocephalic, atraumatic. Oropharynx unremarkable. EYES: Normal conjunctiva. Sclera non-icteric. NECK: Inspection normal. Non-tender. Supple. No nuchal rigidity. FROM. No masses. RESPIRATORY: Clear to auscultation. No wheezes. No rales. Normal respiratory effort. CARDIAC: Normal rate. Normal rhythm. No murmurs. No rubs. Extremities warm and well perfused. Pulses equal. No JVD. GI: Soft, non-distended. No tenderness to palpation. No rebound or guarding. No masses. RECTAL: Deferred. MUSCULOSKELETAL: Atraumatic. Chest examination reveals no tenderness. The back is symmetrical on inspection without obvious abnormality. Incision is clean dry and intact. No signs of infection. There is no CVA tenderness to palpation. No joint edema. LOWER EXTREMITIES: Calves are equal size bilaterally and non-tender. No edema. No discoloration. NEURO: Normal sensorium. No sensory deficits noted. Mild weakness noted in the left lower extremity. Negative straight leg raise. Dysphagia. SKIN: No rash or jaundice noted. 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, stage pT2 Status post reexcision and sentinel lymph node biopsy 12/26/2013 pN0 (i+) Oncotype DX score of 11 Status post completion of radiation therapy 04/13/2014 received 5006 cGy utilizing hypo-fractionation Required post radiation wound care " Chronic back pain Chronic respiratory failure with hypoxia COPD (chronic obstructive pulmonary disease) Depression Dyspnea on exertion Elevated alkaline phosphatase level Facet arthritis of lumbar region Hearing decreased History of breast cancer 5 years ago - Left + surgery, no chemo Hypercholesteremia Hypertension Lesion of right [place] kidney patient is unaware Limb alert care status LUE no lab draws Multiple pulmonary nodules On home oxygen therapy 2 LPM QHS PRN > HAS DIFFICULTY WITH KEEPING ON AT HS Osteoarthritis Osteoporosis Osteoporosis PAC (premature atrial contraction) Prediabetes Pulmonary hypertension Sciatica Sleep disturbance Spinal stenosis Spinal stenosis Statin intolerance Stenosis of iliac artery Vitamin D deficiency disease Surgical History H/O lumbosacral spine surgery History of breast biopsy History of cataract surgery right and left History of colonoscopy History of D&C History of partial mastectomy of left breast History of right knee joint replacement History of tooth extraction Hx of oral surgery S/P breast lumpectomy Slow to wake up after anesthesia Family History Daughter Breast cancer Mother Aortic aneurysm Renal failure Brother Prostate cancer Aortic aneurysm Father Aortic aneurysm Pure hypercholesterolemia Hypertension Grandmother (Maternal) Colon cancer Unknown Diabetes Other No family history of adverse response to anesthesia Denies family history of Ovarian cancer Myocardial infarction Social History Smoking Status: Former smoker Tobacco Type: Cigarettes Cigarettes Per Day: 10-20; Smoking End Date: 04/21/20; Second Hand Exposure: No; Do You Dip or Chew Tobacco: No; Tobacco Cessation Education Requested by Patient: No Hx Alcohol Use: No Hx Substance Use: No Preferred Language: Tamaz[place] Communication Ability: Effective 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 Beliefs That Will Affect Care: None marital status: / Current Living Situation: Alone Current Living Situation Comment: dtr stays with patient current occupational status: retired Other Information That Helps Us Care for You: No Feels Safe at Home: Yes Safety Concerns: Feels Safe At This Time Seatbelt Use: always Assistive Devices: Glasses Allergies Allergies Allergy/AdvReac Type Severity Reaction Status Date / Time nitrofurantoin Allergy Severe SOB, Verified 04/23/20 11:46 [From Macrobid] nausea, vomiting penicillin V Allergy Unknown CAN'T Verified 04/23/20 11:46 REMEMBER REACTION atorvastatin AdvReac Intermediate muscle pain Verified 04/23/20 11:46 ciprofloxacin AdvReac Intermediate REDNESS Verified 04/23/20 11:46 ALONG VEIN simvastatin AdvReac Intermediate muscle pain Verified 04/23/20 11:46 Home Meds Home Medications Medication Instructions Recorded Confirmed cholecalciferol (vitamin D3) 50 mcg PO QAM 01/16/20 04/23/20 gabapentin 300 mg capsule 300 mg PO TID cap 02/24/20 04/23/20 duloxetine 30 mg PO DAILY 04/14/20 04/23/20 duloxetine 60 mg PO QAM 04/23/20 04/23/20 Previous Rx's Medication Instructions Recorded buspirone 15 mg tablet 15 mg PO BID #60 tab 10/31/19 albuterol sulfate 90 mcg/actuation 2 puff INH Q6H PRN #18 gm 01/25/20 aerosol inhaler budesonide-formoterol HFA 160 2 puff INH BID #6 gm 01/25/20 mcg-4.5 mcg/actuation aerosol inhaler ipratropium 0.5 mg-albuterol 3 mg 3 ml INH Q8H PRN #180 ml 01/25/20 (2.5 mg base)/3 mL nebulization soln tiotropium bromide 2.5 2 puff INH QAM #4 g 01/25/20 mcg/actuation mist for inhalation pantoprazole 40 mg tablet,delayed 40 mg PO DAILY #90 tab 02/24/20 release amlodipine 5 mg tablet 5 mg PO QAM #90 tab 02/27/20 polyethylene glycol 3350 [Miralax] 17 g PO DAILY #0 ea 04/19/20 tramadol 50 mg PO BID PRN #20 tab 04/19/20 Results & Data (ED) Vital Signs Vital Signs - 24 hr 04/23/20 11:07 04/23/20 12:30 04/23/20 14:17 Temperature 37 C Temperature Source Oral Pulse Rate 86 Pulse Rate [Right Finger] 78 86 Respiratory Rate 16 16 18 Respiratory Effort / Characteristics Non-Labored Spontaneous Non-Labored Spontaneous Non-Labored Spontaneous Respiratory Depth Normal Normal Normal Respiratory Pattern Regular Blood Pressure 143/102 H Blood Pressure [Right Arm] 159/98 H 136/105 H Blood Pressure Mean 115 Blood Pressure Mean [Right Arm] 118 115 Pulse Oximetry 98 95 96 Oxygen Delivery Method Room Air Room Air Room Air Sepsis Recent Fever Within 48 Hours No Sepsis New/Unexplained Change in Mental Status No Sepsis Action Taken by Nursing No Action Required Laboratory Data Result diagrams: 04/23/20 11:29 04/23/20 11:29 Lab Results 04/23/20 04/23/20 04/23/20 Range/Units 11:29 11:29 11:55 WBC 4.45 L (4.8-10.8) K/uL RBC 3.52 L (4.2-5.4) M/uL Hgb 10.6 L (12.0-16.0) g/dL Hct 31.9 L (37-47) % MCV 90.6 (80-100) fL MCH 30.1 (25-34) pg MCHC 33.2 (32-36) g/dL RDW Std Deviation 49.9 H (36.4-46.3) fL RDW Coeff of [place] 15.1 H (11.5-14.5) % Plt Count 339 (130-400) K/uL MPV 8.5 (7.4-10.4) fL Immature Gran % (Auto) 0.4 % Neut % (Auto) 63.0 % Lymph % (Auto) 25.6 % Piatt % (Auto) 9.9 % Eos % (Auto) 0.9 % Baso % (Auto) 0.2 % Neut # (Auto) 2.80 (1.4-6.5) K/uL Lymph # (Auto) 1.14 L (1.2-3.4) K/uL Piatt # (Auto) 0.44 (0.11-0.59) K/uL Eos # (Auto) 0.04 (0-0.5) K/uL Baso # (Auto) 0.01 (0-0.2) K/uL Immature Gran # (Auto) 0.02 (0.00-0.02) K/uL Sodium 143 (136-145) mmol/L Potassium 3.5 (3.5-5.1) mmol/L Chloride 110 H (98-107) mmol/L Carbon Dioxide 25 (21-32) mmol/L Anion Gap 8.0 (3-11) BUN 10 (7-18) mg/dl Creatinine 0.75 (0.6-1.2) mg/dl Est Cr Clr Drug Dosing 64.2 ml/min Est GFR ( Amer) 87.9 Est GFR (Non-Af Amer) 75.8 BUN/Creatinine Ratio 13.4 (10-20) Glucose 128 H (70-99) mg/dl Calcium 9.5 (8.5-10.1) mg/dl Total Bilirubin 0.5 (0.2-1) mg/dl AST 21 (15-37) U/L ALT 38 (12-78) U/L Alkaline Phosphatase 223 H (45-117) U/L Total Protein 5.4 L (6.4-8.2) gm/dl Albumin 2.4 L (3.4-5.0) gm/dl Globulin 3.0 (2.5-4.0) gm/dl Albumin/Globulin Ratio 0.8 L (0.9-2) Urine Color Dark Yellow Urine Appearance Clear (Clear) Urine pH 7.5 (4.5-7.5) Ur Specific [place] 1.014 (1.000-1.030) Urine Protein Negative (Negative) Urine Glucose (UA) Negative (Negative) Urine Ketones Trace H (Negative) Urine Blood Negative (Negative) Urine Nitrite Positive A (Negative) Urine Bilirubin Negative (Negative) Urine Urobilinogen Negative (Negative) Ur Leukocyte Esterase Trace H (Negative) Urine WBC (Auto) 1-5 (0-5) /hpf Urine RBC (Auto) 0-4 (0-4) /hpf U Hyaline Cast (Auto) 1-5 (0-5) /lpf U Epithel Cells (Auto) 20-30 H (0-5) /lpf Urine Bacteria (Auto) Negative (Negative) COVID-19 Eval Order SARS-CoV-2, RNA, NAAT (NEGATIVE) 04/23/20 04/23/20 Range/Units 12:45 12:45 WBC (4.8-10.8) K/uL RBC (4.2-5.4) M/uL Hgb (12.0-16.0) g/dL Hct (37-47) % MCV (80-100) fL MCH (25-34) pg MCHC (32-36) g/dL RDW Std Deviation (36.4-46.3) fL RDW Coeff of [place] (11.5-14.5) % Plt Count (130-400) K/uL MPV (7.4-10.4) fL Immature Gran % (Auto) % Neut % (Auto) % Lymph % (Auto) % Piatt % (Auto) % Eos % (Auto) % Baso % (Auto) % Neut # (Auto) (1.4-6.5) K/uL Lymph # (Auto) (1.2-3.4) K/uL Piatt # (Auto) (0.11-0.59) K/uL Eos # (Auto) (0-0.5) K/uL Baso # (Auto) (0-0.2) K/uL Immature Gran # (Auto) (0.00-0.02) K/uL Sodium (136-145) mmol/L Potassium (3.5-5.1) mmol/L Chloride (98-107) mmol/L Carbon Dioxide (21-32) mmol/L Anion Gap (3-11) BUN (7-18) mg/dl Creatinine (0.6-1.2) mg/dl Est Cr Clr Drug Dosing ml/min Est GFR ( Amer) Est GFR (Non-Af Amer) BUN/Creatinine Ratio (10-20) Glucose (70-99) mg/dl Calcium (8.5-10.1) mg/dl Total Bilirubin (0.2-1) mg/dl AST (15-37) U/L ALT (12-78) U/L Alkaline Phosphatase (45-117) U/L Total Protein (6.4-8.2) gm/dl Albumin (3.4-5.0) gm/dl Globulin (2.5-4.0) gm/dl Albumin/Globulin Ratio (0.9-2) Urine Color Urine Appearance (Clear) Urine pH (4.5-7.5) Ur Specific [place] (1.000-1.030) Urine Protein (Negative) Urine Glucose (UA) (Negative) Urine Ketones (Negative) Urine Blood (Negative) Urine Nitrite (Negative) Urine Bilirubin (Negative) Urine Urobilinogen (Negative) Ur Leukocyte Esterase (Negative) Urine WBC (Auto) (0-5) /hpf Urine RBC (Auto) (0-4) /hpf U Hyaline Cast (Auto) (0-5) /lpf U Epithel Cells (Auto) (0-5) /lpf Urine Bacteria (Auto) (Negative) COVID-19 Eval Order Covid19 IDNow [id number] SARS-CoV-2, RNA, NAAT NEGATIVE (NEGATIVE) Administered Medications Bisacodyl (Bisacodyl 5 Mg Tabec) 5 mg PO DAILY BURAK Stop: 05/23/20 16:09 Last Admin: 04/23/20 17:03 Dose: 5 mg Documented by: [id number] Discontinued Medications Hydrocodone Bitart/Acetaminophen (Hydrocodone/Acetamophen 5/325mg Tab) 1 tab PO NOW STA Stop: 04/23/20 14:13 Last Admin: 04/23/20 14:14 Dose: 1 tab Documented by: [id number] Amlodipine Besylate (Amlodipine Besylate 5 Mg Tab) 5 mg PO NOW STA Stop: 04/23/20 15:10 Last Admin: 04/23/20 15:22 Dose: 5 mg Documented by: [id number] Hydromorphone HCl (Hydromorphone Inj 0.5 Mg/0.5 Ml Syr) 0.5 mg IV NOW STA Stop: 04/23/20 14:55 Last Admin: 04/23/20 15:04 Dose: 0.5 mg Documented by: [id number] Discharge Plan Visit Data Chief Complaint: Back Injury/Pain ED Provider: Sinan Huffman Discharge Problem: Back pain, Ambulatory dysfunction Patient Disposition: Admitted As Inpatient Discharge Instructions Interventions: ED Discharge Assessment Last Done: 04/23/20 15:46
[2020-04-23 11:52] LABS: Basophils # (auto) 0.01 K/uL (0-0.2); Basophils % (auto) 0.2 %; Eosinophils # (auto) 0.04 K/uL (0-0.5); Eosinophils % (auto) 0.9 %; Hematocrit (blood only) 31.9 % (37-47); Hemoglobin 10.6 g/dL (12.0-16.0); Immature Granulocytes # (auto) 0.02 K/uL (0.00-0.02); Immature Granulocytes % (auto) 0.4 %; Lymphocytes # (auto) 1.14 K/uL (1.2-3.4); Lymphocytes % (auto) 25.6 %; Mean Corpuscular Hemoglobin 30.1 pg (25-34); Mean Corpuscular Hgb Conc 33.2 g/dL (32-36); Mean Corpuscular Volume 90.6 fL (80-100); Mean Platelet Volume 8.5 fL (7.4-10.4); Monocytes # (auto) 0.44 K/uL (0.11-0.59); Monocytes % (auto) 9.9 %; Platelet Count 339 K/uL (130-400); RDW Coefficient of Variation 15.1 % (11.5-14.5); RDW Standard Deviation 49.9 fL (36.4-46.3); Red Blood Count 3.52 M/uL (4.2-5.4); White Blood Count 4.45 K/uL (4.8-10.8)
[2020-04-23 12:03] LABS: Appearance Urine Clear (Clear); Bacteria Urine Automated Negative (Negative); Bilirubin Urine Negative (Negative); Blood Urine Negative (Negative); Color Urine Dark Yellow; Epithelial Cell Urine Auto 20-30 /lpf (0-5); Glucose Urine UA Negative (Negative); Ketones Urine Trace (Negative); Leukocyte Esterase Urine Trace (Negative); Nitrite Urine Positive (Negative); Protein Urine Negative (Negative); RBC Urine Automated 0-4 /hpf (0-4); Specific Gravity Urine 1.014 (1.000-1.030); Urobilinogen Urine Negative (Negative); pH Urine 7.5 (4.5-7.5)
[2020-04-23 12:04] LABS: Albumin Level 2.4 gm/dl (3.4-5.0); BUN Creatinine Ratio 13.4 (10-20); Calcium 9.5 mg/dl (8.5-10.1); Creatinine Clr Calc Pharmacy 64.2 ml/min; Est GFR (African American) 87.9; Est GFR (Non-African American) 75.8; Potassium 3.5 mmol/L (3.5-5.1)
[2020-04-23 12:07] LABS: Albumin Globulin Ratio 0.8 (0.9-2); Bilirubin,Total 0.5 mg/dl (0.2-1); Total Protein 5.4 gm/dl (6.4-8.2)
[2020-04-23] MEDS ORDERED: HYDROCODONE/ACETAMOPHEN 5/325MG TAB PO STA (14:12)
--- NOTE | 2020-04-23 14:14 | History & Physical Report ---
Date of Service April 23, 2020 Assessment & Plan (1) Status post lumbar spine operative procedure for decompression of spinal cord: - S/p lumbar decompression and fusion with Dr. Guaman on 04/04/2020. - Dr. Guaman following - Lumbar MRI on 04/15 showed small intracanalicular fluid collection within the posterior aspect of the canal at the L5 level with mild to moderate mass effect upon the thecal sac. - During last admit pt was seen with Dr. Guaman on 04/17 - Feels spinal surgery is stable and encourages PT/OT - will reconsult for continuity during her hospital stay. (2) Acute UTI: - Hx of such, 04/14 had UTI growing out enterococcus faecalis. Repeat UA on admission today with trace nitrate, esterase and possible considering having indwelling sharma during last admission vs not completely clearing UTI. She is currently asymptomatic. - Repeat UCx sent, follow for sensitivity and specificity. - Hold on antibiotics at this time since afebrile and without leukocytosis (3) Abdominal pain: - During most recent admission was on ceftriaxone/flagyl for mild diverticulitis and finished recent course as an outpatient. No abdominal pain. (4) Hypertension: - Continue amlodipine - Missed morning meds, BP relatively stable, can give amlodipine now. (5) Pulmonary hypertension: Presumed. Last echo from 11/09/18 reviewed showing elevated right ventricular systolic pressure at 30-40 mmHG - can only confirm with a right heart cath. - BP well controlled (6) Multiple pulmonary nodules: - Follow up per outpatient for routine CT imaging (7) COPD (chronic obstructive pulmonary disease): - Has supplemental O2 2 L for PRN use, pt reports she is not sure when she is supposed to wear it other than "when I feel like it." - Titrate O2 88-92 %, currently on room air - Continue home inhalers (8) Anxiety and depression: - Continue BuSpar, Cymbalta - Would recommend counseling upon discharge DVT ppx: teds, scds, heparin subq CODE: FULL Dispo: From home, likely to remain in the hospital x 2 days, CM to assist with dc planning. History of Present Illness Primary Care Provider: Annette Dowd MD This is a 79 yo F with PMhx including HTN, HLD, COPD with emphysema, chronic respiratory failure with hypoxia, prediabetes, pulmonary hypertension, KWAME, vi tamin D deficiency, sciatica, osteoporosis, and multiple pulmonary nodules, back pain, diverticulitis and multiple recent hospitalizations. Significant history includes that she was recently admitted here from 03/31/2020 through 04/12/2020 for a history of chronic back pain with laminectomy and persistent L5 radiculopathy, spinal stenosis with history of epidural injections in January then underwent spinal decompression and fusion by Dr. Guaman on 04/04/2020, and had an extended hospital course due to back pain, KWAME with leukocytosis, as well as pt decision on home vs. rehab. Throughout that stay the patient had chronic leukocytosis that was attributed to outpatient steroids as there was no focal signs of infection, her UA was contaminated but the patient was asymptomatic. Her WBC on 04/10 was 20, and is consistent with today's level of 20.88 on admission. Her kidney function was worse with creatinine 2.19 and BUN 48 compared to creatinine 0.93 on discharge. She was discharged to [facility]. Pt represented on 04/14/20 with increasing abdominal pain with concerns for diverticulitis, constipation and urinary retention. A CT of the abd/pelvis was completed and is negative for bowel obstruction, free air but does show moderate colonic fecal retention, colonic diverticulosis, minimal stranding within perisigmoid fat which is concerning for possible diverticulitis. She had been started on ceftriaxone and flagyl IV and transitioned to cipro and flagyl on discharge on 04/19/20. Pt was discharged home with home health services. Today the pt presents after being home for 3 days. She states that as soon as she came home she was weak, fell, and ended up on her couch where she didn't really do anything until coming in here today. Her sister was home with her during this time. She reports poor appetite, fatigue, depressed mood, and consistent back pain that does not seem to improve despite OTC medications or home therapies like heat or massage. She did not take her morning medications today as she just wanted to come to the hospital. She feels her strength in her legs is significantly diminished and that she needs rehab. Her UA today appears to be contaminated, and did end up growing out enterococcus faecalis during the 04/04-04/19 admission, but again is asymptomatic. She admits that she did not want to previously go to a rehab, but is agreeable now. Will plan to have CM assist with dc planning. Allergies Allergy/AdvReac Type Severity Reaction Status Date / Time nitrofurantoin Allergy Severe SOB, Verified 04/23/20 11:46 [From Macrobid] nausea, vomiting penicillin V Allergy Unknown CAN'T Verified 04/23/20 11:46 REMEMBER REACTION atorvastatin AdvReac Intermediate muscle pain Verified 04/23/20 11:46 ciprofloxacin AdvReac Intermediate REDNESS Verified 04/23/20 11:46 ALONG VEIN simvastatin AdvReac Intermediate muscle pain Verified 04/23/20 11:46 Home Medications Medication Instructions Recorded Confirmed Type buspirone 15 mg tablet 15 mg PO BID #60 tab 10/31/19 04/23/20 Rx cholecalciferol (vitamin D3) 50 mcg PO QAM 01/16/20 04/23/20 History albuterol sulfate 90 mcg/actuation 2 puff INH Q6H PRN #18 gm 01/25/20 04/23/20 Rx aerosol inhaler budesonide-formoterol HFA 160 2 puff INH BID #6 gm 01/25/20 04/23/20 Rx mcg-4.5 mcg/actuation aerosol inhaler ipratropium 0.5 mg-albuterol 3 mg 3 ml INH Q8H PRN #180 ml 01/25/20 04/23/20 Rx (2.5 mg base)/3 mL nebulization soln tiotropium bromide 2.5 2 puff INH QAM #4 g 01/25/20 04/23/20 Rx mcg/actuation mist for inhalation gabapentin 300 mg capsule 300 mg PO TID cap 02/24/20 04/23/20 History pantoprazole 40 mg tablet,delayed 40 mg PO DAILY #90 tab 02/24/20 04/23/20 Rx release amlodipine 5 mg tablet 5 mg PO QAM #90 tab 02/27/20 04/23/20 Rx duloxetine 30 mg PO DAILY 04/14/20 04/23/20 History polyethylene glycol 3350 [Miralax] 17 g PO DAILY #0 ea 04/19/20 04/23/20 Rx tramadol 50 mg PO BID PRN #20 tab 04/19/20 04/23/20 Rx duloxetine 60 mg PO QAM 04/23/20 04/23/20 History 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, stage pT2 Status post reexcision and sentinel lymph node biopsy 12/26/2013 pN0 (i+) Oncotype DX score of 11 Status post completion of radiation therapy 04/13/2014 received 5006 cGy utilizing hypo-fractionation Required post radiation wound care " Chronic back pain Chronic respiratory failure with hypoxia COPD (chronic obstructive pulmonary disease) Depression Dyspnea on exertion Elevated alkaline phosphatase level Facet arthritis of lumbar region Hearing decreased History of breast cancer 5 years ago - Left + surgery, no chemo Hypercholesteremia Hypertension Lesion of right mechoopda kidney patient is unaware Limb alert care status LUE no lab draws Multiple pulmonary nodules On home oxygen therapy 2 LPM QHS PRN > HAS DIFFICULTY WITH KEEPING ON AT HS Osteoarthritis Osteoporosis Osteoporosis PAC (premature atrial contraction) Prediabetes Pulmonary hypertension Sciatica Sleep disturbance Spinal stenosis Spinal stenosis Statin intolerance Stenosis of iliac artery Vitamin D deficiency disease Surgical History H/O lumbosacral spine surgery History of breast biopsy History of cataract surgery right and left History of colonoscopy History of D&C History of partial mastectomy of left breast History of right knee joint replacement History of tooth extraction Hx of oral surgery S/P breast lumpectomy Slow to wake up after anesthesia Family History Daughter Breast cancer Mother Aortic aneurysm Renal failure Brother Prostate cancer Aortic aneurysm Father Aortic aneurysm Pure hypercholesterolemia Hypertension Grandmother (Maternal) Colon cancer Unknown Diabetes Other No family history of adverse response to anesthesia Denies family history of Ovarian cancer Myocardial infarction Social History Smoking Status: Never smoker Tobacco Type: Cigarettes Cigarettes Per Day: 10-20; Second Hand Exposure: No; Hx Alcohol Use: No Hx Substance Use: Yes Substance Use Type Other:: medical marijuana - bring card to make copy Preferred Language: Surinamese Communication Ability: Effective 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 Required: No Beliefs That Will Affect Care: None marital status: / Current Living Situation: Alone and Family Current Living Situation Comment: dtr stays with patient current occupational status: retired Feels Safe at Home: Yes Seatbelt Use: always Assistive Devices: Walker Review of Systems Review of Systems: Constitutional: No fever, sweats or chills Eyes: No diplopia, no worsening or blurred vision ENT: normal hearing, no trouble swallowing Respiratory: No cough, sputum, dyspnea at rest or on exertion Cardiovascular: No chest pain, tightness or palpitations Abdomen: No pain, nausea, vomiting, diarrhea or constipation Back: lower back pain over the Left lumbar sacral region extending to the left buttock. : no dysuria, hematuria, increase in frequency Musculoskeletal: No joint pain, calf pain, swelling Neurologic: No weakness, numbness/tingling, or balance problems, no bowel or bladder incontinence. Psychiatric: No anxiety or depression Skin: No rash or itch Physical Exam Physical Exam: General: awake, alert, no apparent distress, + obese with BMI of 32.2 Head: Normocephalic, atraumatic ENT: PERRL, EOMI, no pharyngeal exudate, mucous membranes moist Chest: Clear to auscultation, on room air, no adventitious breath sounds Cardiac: Regular rate and rhythm, no murmur, no JVD, normal peripheral pulses, good capillary refill Abdominal: NABS x 4 quadrants, soft, nondistended, nontender to palpation, no rebound or guarding Back: surgical incision is healing well, intact, no surrounding erythema or edema, no purulent material expressed from region. no point tenderness over the spine. + tenderness in left lumbar region which extends to the left gluteal region. Extremities: Normal inspection, no peripheral edema or erythema, calfs nontender to palpation Psych: Depressed mood and flat affect Neuro: AAO x 3, strength intact bilaterally and rated 5/5 with knee flexion, pt does not hip flex or attempt to fully cloth examiner her legs as she requests to remain lying on her right side due to pain. Leg raise not assessed. No motor deficits, speech is clear, no peripheral sensory deficits. Results & Data Results & Data ([facility]) Vital Signs (Past 12 Hours) Vital Signs Temp Pulse Pulse Resp BP BP Pulse Ox 04/23/20 12:30 78 16 159/98 H 95 04/23/20 11:07 37 C 86 16 143/102 H 98 Code Status & VTE Plan Code Status Full code- discussed with the pt at bedside. Supervising Physician Co-Signing Physician Notes Patient was seen and examined independently I discussed the case with Susanna Francis PAC I reviewed pertinent past medical social family history and also the plan of care and agree with the plan of care. Patient complaint is left sacroiliac joint area pain and also left leg weakness which worsened after she was dropped off by her sister and daughter at home\\ Patient is sensation intact with good strength and has no reflexes elicited Patient's incision looks very good there is no fluctuance redness or tenderness to her incision Patient brought in our facility without PT OT evaluation repeat MRI scheduled for postoperative changes is no seroma or hematoma which might be impinging her left-sided nerve roots and have consultation Dr. Guaman with further evaluation of possible placement for acute rehab. Any exceptions will be noted below PG Care Time/CCT Total # of Minutes Spent Total Time Spent with Patient: Total time spent is greater than 50% in coordination of care (as documented) at patient's floor/unit and/or counseling patient: Coding Level of Care Code 31756 Initial Inpt Care Lvl 3 Diagnoses Status post lumbar spine operative procedure for decompression of spinal cord Z98.890 Acute UTI N39.0 Abdominal pain R10.30 Abdominal location: lower abdomen, unspecified Hypertension I10 Hypertension type: essential hypertension Pulmonary hypertension I27.20 Multiple pulmonary nodules R91.8 COPD (chronic obstructive pulmonary disease) J44.9 Anxiety and depression F41.9; F32.9 (1) Abdominal pain Abdominal location: lower abdomen, unspecified Qualified Code(s): R10.30 - Lower abdominal pain, unspecified (2) Hypertension Hypertension type: essential hypertension Qualified Code(s): I10 - Essential (primary) hypertension
[2020-04-23] MEDS ORDERED: HYDROmorphone INJ 0.5 MG/0.5 ML SYR IV STA (14:54)
[2020-04-23] MEDS ORDERED: amLODIPine BESYLATE 5 MG TAB PO STA (15:09)
[2020-04-23] MEDS ORDERED: ALBUT/IPRATROP 3MG/0.5MG NEB 3 ML VIAL INH PRN (16:10)
[2020-04-23] MEDS ORDERED: ALBUTEROL HFA 8 GM INHALER INH PRN (16:10)
[2020-04-23] MEDS ORDERED: ONDANSETRON INJ 2 MG/ML 2 ML VIAL IV PRN (16:10)
[2020-04-23] MEDS: bisacodyL 5 MG TABEC PO SCH (17:03)
[2020-04-23] MEDS ORDERED: PNEUMOCOCCAL Polysaccharide Vaccine 25mcg/0.5mL vial/Syr IM ONE (20:00)
[2020-04-23] MEDS: HEPARIN SOD 5,000 UNIT/0.5 ML VIAL SQ SCH (20:27)
[2020-04-23] MEDS: busPIRone 15 MG TAB PO SCH (20:27)
[2020-04-23] MEDS: GABAPENTIN 300 MG CAP PO SCH (20:27)
[2020-04-23] MEDS: traMADol HCL 50 MG TABLET PO PRN (20:35)
[2020-04-23] MEDS: MELATONIN 3 MG TAB PO PRN (23:33)
[2020-04-23] MEDS: oxyCODONE HCL IR 5 MG TAB (IMMEDIATE RELEASE) PO PRN (23:33)
[2020-04-24 07:02] LABS: Hematocrit (blood only) 31.6 % (37-47); Hemoglobin 10.6 g/dL (12.0-16.0); Mean Corpuscular Hemoglobin 30.5 pg (25-34); Mean Corpuscular Hgb Conc 33.5 g/dL (32-36); Mean Corpuscular Volume 91.1 fL (80-100); Mean Platelet Volume 8.4 fL (7.4-10.4); Platelet Count 366 K/uL (130-400); RDW Coefficient of Variation 15.4 % (11.5-14.5); RDW Standard Deviation 50.3 fL (36.4-46.3); Red Blood Count 3.47 M/uL (4.2-5.4); White Blood Count 4.93 K/uL (4.8-10.8)
[2020-04-24 07:39] LABS: Albumin Level 2.3 gm/dl (3.4-5.0); BUN Creatinine Ratio 13.9 (10-20); Calcium 9.5 mg/dl (8.5-10.1); Creatinine Clr Calc Pharmacy 72.9 ml/min; Est GFR (African American) 97.4; Magnesium 1.9 mg/dl (1.8-2.4); Potassium 3.3 mmol/L (3.5-5.1)
[2020-04-24 07:42] LABS: Albumin Globulin Ratio 0.8 (0.9-2); Bilirubin Direct 0.1 mg/dl (0-0.2); Bilirubin,Total 0.5 mg/dl (0.2-1); Globulin 2.8 gm/dl (2.5-4.0); Phosphorus 2.9 mg/dl (2.5-4.9); Total Protein 5.1 gm/dl (6.4-8.2)
--- NOTE | 2020-04-24 08:07 | Magnetic Resonance Report ---
LUMBAR SPINE MRI HISTORY: Persistent back pain. R/o paraspinal hematoma TECHNIQUE: Multiplanar multisequence MRI of the lumbar spine was performed without the use of contras t. COMPARISON: Lumbar spine MRI 04/15/2020. FINDINGS: For the purpose of the report the L5-S1 disc space will be located on axial image 27 of 30. Suboptimal study due to motion artifact and extensive hardware within the lumbar spine. There is mild levoscoliosis of the lumbar spine. Posterior decompression and fusion from L3 through S1 with pedicl e screws and rods. This results in near nondiagnostic evaluation of the central canal and surrounding soft tissues due to the metallic artifact. There is severe disc space narrowing at L1-L2 and L2-L3. The conus terminates at the T12-L1 disc space level. Paravertebral soft tissues appear within normal limits. No significant change in the thick walled subcutaneous fluid collection and surrounding subcu taneous edema within the lumbar region. This fluid collection measures 10.1 x 2.7 x 2.5 cm and favors a postoperative seroma. There is also soft tissue edema in the deep soft tissues at the laminectomy site without a definite loculated fluid collection. There is no epidural fluid collection which appea rs to surround the majority of the thecal sac from the T12-L5 levels. This most pronounced within the right posterior epidural space at L1 and measures up to 8 mm in thickness. This is best seen image 1 of the axial T2 sequences. This is highly suspicious for an epidural hematoma or epidural abscess. T his results in moderate mass effect along the thecal sac most pronounced at L1 and the L4-L5 levels. Of note this is difficult to assess due to the metallic artifact. Endplate edema at L1-L2 and L2-L3. This could be due to the degenerative change. Moderate central canal narrowing at L1-L2 and L2-L3 due to the disc bulges and ligamentum flavum and facet hypertrophy. This is similar to the prior study. IMPRESSION: 1. Interval progression of the abnormal epidural fluid collection from T12 through L5 which results i n moderate mass effect along the thecal sac. This is concerning for an epidural hematoma or abscess. Surgical consultation advised. 2. Postoperative changes consistent with L3-S1 posterior decompression and fusion. The metallic artif act results in suboptimal evaluation within the central canal and adjacent soft tissues. 3. Moderate central canal narrowing at L1-L2 and L2-L3, unchanged. 4. Stable subcutaneous fluid collection and edema within the lumbar region. This favors a postoperati ve seroma. 5. These findings were discussed with Anabela Olmstead at 8:13 AM on 04/24/2020. ACT 112: Negative or not required by law. Electronically signed by: Konrad Casas M.D. 04/24/2020 8:13 AM
[2020-04-24] MEDS ORDERED: POTASSIUM CHLORIDE CRTAB 20 MEQ TABCR PO STA (08:38)
--- NOTE | 2020-04-24 08:39 | Hospitalist Progress Note ---
Date of Service April 24, 2020 Assessment & Plan (1) Status post lumbar spine operative procedure for decompression of spinal cord: * S/p lumbar decompression and fusion with Dr. Guaman on 04/04/2020. * Dr. Guaman following - Lumbar MRI on 04/15 showed small intracanalicular fluid collection within the posterior aspect of the canal at the L5 level with mild to moderate mass effect upon the thecal sac. * During last admit pt was seen with Dr. Guaman on 04/17 - Feels spinal surgery is stable and encourages PT/OT (she did not want rehab initially but is now agreeable) Repeat MRI during this admission with: * 1. Interval progression of the abnormal epidural fluid collection from T12 through L5 which results in moderate mass effect along the thecal sac. This is concerning for an epidural hematoma or abscess. Surgical consultation advised. * 2. Postoperative changes consistent with L3-S1 posterior decompression and fusion. The metallic artifact results in suboptimal evaluation within the central canal and adjacent soft tissues. * 3. Moderate central canal narrowing at L1-L2 and L2-L3, unchanged. * 4. Stable subcutaneous fluid collection and edema within the lumbar region. This favors a postoperative seroma. * Blood cultures pending * Afebrile, no white count * Dr Guaman consulted-- I messaged him this morning and decision to make patient NPO for now until evaluation this afternoon for likely intervention * Of note, patient discharged on Cipro/Flagyl on 04/19 for diverticulitis and could be why patient without elevation in WBC/fevers currently. She notes she did complete full course of treatment * Continue pain control -- adequately controlled at this time per patient * CXR without acute process * EKG pending for pre-op * PT/OT once cleared by surgery (2) Acute UTI: * Hx of such, 04/14 had UTI growing out enterococcus faecalis. Repeat UA on admission today with trace nitrate, esterase and possible considering having indwelling sharma during last admission vs not completely clearing UTI. She is currently asymptomatic. * Repeat UCx sent, follow for sensitivity and specificity. * Hold on antibiotics at this time since afebrile and without leukocytosis * Urine culture pending -- was discharged on cipro/flagyl which should have covered (3) Abdominal pain: * During most recent admission was on ceftriaxone/flagyl for mild divertic ulitis and finished recent course as an outpatient. * No abdominal pain or diarrhea noted at this time * Continue to monitor (4) Hypertension: * Continue amlodipine (had not gotten yet this morning and BP elevated to 159/90) * Continue amlodipine -- consider increasing dose if BP continues to be elevated with adequate pain control * Continue to monitor (5) Pulmonary hypertension: * Presumed. Last echo from 11/09/18 reviewed showing elevated right ventricular systolic pressure at 30-40 mmHG - can only confirm with a right heart cath. * Will obtain overnight sleep study (6) Multiple pulmonary nodules: * Follow up per outpatient for routine CT imaging (7) COPD (chronic obstructive pulmonary disease): * Has supplemental O2 2 L for PRN use, pt reports she is not sure when she is supposed to wear it other than "when I feel like it." * Titrate O2 88-92 %, currently on room air * Continue home inhalers (8) Anxiety and depression: * Continue BuSpar, Cymbalta * Would recommend counseling upon discharge . can also discuss increasing medications tomorrow (previous admission 2018 with increase in buspar) DVT ppx: teds, scds, heparin subq initially but held this morning and will continue to hold given pending OR CODE: FULL Dispo: possible OR this afternoon CM following -- patient agreeable to rehab at discharge. Will need PT/OT prior (9) Hypokalemia: * K 3.3. Mag wnl. * Replace 20meq PO Admission and Anticipated Discharge Date Admission Date: April 23, 2020 Subjective Patient evaluated this morning. Resting comfortably in bed. Stated she was using her walker at discharge on the 4th and her legs gave out with her. No noted obvious trauma to her back but developed worsening pain, weakness, decreased appetite and states she was on the couch until admission. She is currently living alone and we discussed rehab, as she had previously not wanted this. She states she had completed the cipro/flagyl for the suspected diverticulitis last admission and this could have caused some suppression as she did not have elevated WBC or fevers (or noted fevers or chills prior to admission). Discussed I spoke with Dr. Guaman and given findings on MRI we will continue NPO and possible intervention this afternoon for exploration. No fever, chills, chest pain, shortness of breath, abdominal pain, nausea or vomiting at this time. Still with lack of appetite. No dysuria, increased frequency or other urinary symptoms. No loss of bowel/bladder, but does note pain radiating to b/l LE with associated weakness and pain with movement. Discussed stressors at home. She is currently living alone. States "things aren't great" but did not want to go into detail at this time. Prior issues with daughter and Etoh in admission Jan 2019 when I had her and we increased buspar at that time. Agreeable to further discussion tomorrow. Review of Systems Review of Systems: All systems reviewed & are unremarkable except as noted in HPI & below Physical Exam Physical Exam: General: awake, alert, no apparent distress, + obese Head: Normocephalic, atraumatic ENT: PERRL, EOMI, no pharyngeal exudate, mucous membranes moist Chest: Clear to auscultation, on room air, no adventitious breath sounds Cardiac: Regular rate and rhythm, no murmur, no JVD, normal peripheral pulses, good capillary refill Abdominal: NABS x 4 quadrants, soft, nondistended, nontender to palpation, no rebound or guarding Back: surgical incision is healing well, intact, no surrounding erythema or edema, no purulent material expressed from region. no point tenderness over the spine. + tenderness in left lumbar region which extends to the left gluteal region. able to flex/extend at the knees. decreased at the hips due to increased pain. NVI. 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 Leg raise not assessed. No motor deficits, speech is clear, no peripheral sensory deficits. Results & Data Results & Data ([facility]) Vital Signs (Past 12 Hours) Vital Signs Temp Pulse Resp BP Pulse Ox 04/24/20 07:29 36.7 C 93 H 18 159/90 H 95 04/23/20 22:48 37.3 C 102 H 18 148/74 H 95 Laboratory Results 04/24/20 04/24/20 04/24/20 Range/Units 08:55 06:17 06:17 WBC 4.93 (4.8-10.8) K/uL RBC 3.47 L (4.2-5.4) M/uL Hgb 10.6 L (12.0-16.0) g/dL Hct 31.6 L (37-47) % MCV 91.1 (80-100) fL MCH 30.5 (25-34) pg MCHC 33.5 (32-36) g/dL RDW Std Deviation 50.3 H (36.4-46.3) fL RDW Coeff of Hipolito 15.4 H (11.5-14.5) % Plt Count 366 (130-400) K/uL MPV 8.4 (7.4-10.4) fL Immature Gran % (Auto) % Neut % (Auto) % Lymph % (Auto) % [place] % (Auto) % Eos % (Auto) % Baso % (Auto) % Neut # (Auto) (1.4-6.5) K/uL Lymph # (Auto) (1.2-3.4) K/uL [place] # (Auto) (0.11-0.59) K/uL Eos # (Auto) (0-0.5) K/uL Baso # (Auto) (0-0.2) K/uL Immature Gran # (Auto) (0.00-0.02) K/uL Sodium 144 (136-145) mmol/L Potassium 3.3 L (3.5-5.1) mmol/L Chloride 112 H (98-107) mmol/L Carbon Dioxide 25 (21-32) mmol/L Anion Gap 7.0 (3-11) BUN 9 (7-18) mg/dl Creatinine 0.66 (0.6-1.2) mg/dl Est Cr Clr Drug Dosing 72.9 ml/min Est GFR ( Amer) 97.4 Est GFR (Non-Af Amer) 84.0 BUN/Creatinine Ratio 13.9 (10-20) Glucose 87 (70-99) mg/dl Calcium 9.5 (8.5-10.1) mg/dl Phosphorus 2.9 (2.5-4.9) mg/dl Magnesium 1.9 (1.8-2.4) mg/dl Total Bilirubin 0.5 (0.2-1) mg/dl Direct Bilirubin 0.1 (0-0.2) mg/dl AST 21 (15-37) U/L ALT 36 (12-78) U/L Alkaline Phosphatase 217 H (45-117) U/L Total Protein 5.1 L (6.4-8.2) gm/dl Albumin 2.3 L (3.4-5.0) gm/dl Globulin 2.8 (2.5-4.0) gm/dl Albumin/Globulin Ratio 0.8 L (0.9-2) Vitamin B12 654 (193-986) pg/ml Urine Color Urine Appearance (Clear) Urine pH (4.5-7.5) Ur Specific [place] (1.000-1.030) Urine Protein (Negative) Urine Glucose (UA) (Negative) Urine Ketones (Negative) Urine Blood (Negative) Urine Nitrite (Negative) Urine Bilirubin (Negative) Urine Urobilinogen (Negative) Ur Leukocyte Esterase (Negative) Urine WBC (Auto) (0-5) /hpf Urine RBC (Auto) (0-4) /hpf U Hyaline Cast (Auto) (0-5) /lpf U Epithel Cells (Auto) (0-5) /lpf Urine Bacteria (Auto) (Negative) COVID-19 Eval Order SARS-CoV-2, RNA, NAAT (NEGATIVE) 04/23/20 04/23/20 04/23/20 Range/Units 12:45 12:45 11:55 WBC (4.8-10.8) K/uL RBC (4.2-5.4) M/uL Hgb (12.0-16.0) g/dL Hct (37-47) % MCV (80-100) fL MCH (25-34) pg MCHC (32-36) g/dL RDW Std Deviation (36.4-46.3) fL RDW Coeff of Hipolito (11.5-14.5) % Plt Count (130-400) K/uL MPV (7.4-10.4) fL Immature Gran % (Auto) % Neut % (Auto) % Lymph % (Auto) % [place] % (Auto) % Eos % (Auto) % Baso % (Auto) % Neut # (Auto) (1.4-6.5) K/uL Lymph # (Auto) (1.2-3.4) K/uL [place] # (Auto) (0.11-0.59) K/uL Eos # (Auto) (0-0.5) K/uL Baso # (Auto) (0-0.2) K/uL Immature Gran # (Auto) (0.00-0.02) K/uL Sodium (136-145) mmol/L Potassium (3.5-5.1) mmol/L Chloride (98-107) mmol/L Carbon Dioxide (21-32) mmol/L Anion Gap (3-11) BUN (7-18) mg/dl Creatinine (0.6-1.2) mg/dl Est Cr Clr Drug Dosing ml/min Est GFR ( Amer) Est GFR (Non-Af Amer) BUN/Creatinine Ratio (10-20) Glucose (70-99) mg/dl Calcium (8.5-10.1) mg/dl Phosphorus (2.5-4.9) mg/dl Magnesium (1.8-2.4) mg/dl Total Bilirubin (0.2-1) mg/dl Direct Bilirubin (0-0.2) mg/dl AST (15-37) U/L ALT (12-78) U/L Alkaline Phosphatase (45-117) U/L Total Protein (6.4-8.2) gm/dl Albumin (3.4-5.0) gm/dl Globulin (2.5-4.0) gm/dl Albumin/Globulin Ratio (0.9-2) Vitamin B12 (193-986) pg/ml Urine Color Dark Yellow Urine Appearance Clear (Clear) Urine pH 7.5 (4.5-7.5) Ur Specific [place] 1.014 (1.000-1.030) Urine Protein Negative (Negative) Urine Glucose (UA) Negative (Negative) Urine Ketones Trace H (Negative) Urine Blood Negative (Negative) Urine Nitrite Positive A (Negative) Urine Bilirubin Negative (Negative) Urine Urobilinogen Negative (Negative) Ur Leukocyte Esterase Trace H (Negative) Urine WBC (Auto) 1-5 (0-5) /hpf Urine RBC (Auto) 0-4 (0-4) /hpf U Hyaline Cast (Auto) 1-5 (0-5) /lpf U Epithel Cells (Auto) 20-30 H (0-5) /lpf Urine Bacteria (Auto) Negative (Negative) COVID-19 [facility] SARS-CoV-2, RNA, NAAT NEGATIVE (NEGATIVE) 04/23/20 04/23/20 Range/Units 11:29 11:29 WBC 4.45 L (4.8-10.8) K/uL RBC 3.52 L (4.2-5.4) M/uL Hgb 10.6 L (12.0-16.0) g/dL Hct 31.9 L (37-47) % MCV 90.6 (80-100) fL MCH 30.1 (25-34) pg MCHC 33.2 (32-36) g/dL RDW Std Deviation 49.9 H (36.4-46.3) fL RDW Coeff of Hipolito 15.1 H (11.5-14.5) % Plt Count 339 (130-400) K/uL MPV 8.5 (7.4-10.4) fL Immature Gran % (Auto) 0.4 % Neut % (Auto) 63.0 % Lymph % (Auto) 25.6 % [place] % (Auto) 9.9 % Eos % (Auto) 0.9 % Baso % (Auto) 0.2 % Neut # (Auto) 2.80 (1.4-6.5) K/uL Lymph # (Auto) 1.14 L (1.2-3.4) K/uL [place] # (Auto) 0.44 (0.11-0.59) K/uL Eos # (Auto) 0.04 (0-0.5) K/uL Baso # (Auto) 0.01 (0-0.2) K/uL Immature Gran # (Auto) 0.02 (0.00-0.02) K/uL Sodium 143 (136-145) mmol/L Potassium 3.5 (3.5-5.1) mmol/L Chloride 110 H (98-107) mmol/L Carbon Dioxide 25 (21-32) mmol/L Anion Gap 8.0 (3-11) BUN 10 (7-18) mg/dl Creatinine 0.75 (0.6-1.2) mg/dl Est Cr Clr Drug Dosing 64.2 ml/min Est GFR ( Amer) 87.9 Est GFR (Non-Af Amer) 75.8 BUN/Creatinine Ratio 13.4 (10-20) Glucose 128 H (70-99) mg/dl Calcium 9.5 (8.5-10.1) mg/dl Phosphorus (2.5-4.9) mg/dl Magnesium (1.8-2.4) mg/dl Total Bilirubin 0.5 (0.2-1) mg/dl Direct Bilirubin (0-0.2) mg/dl AST 21 (15-37) U/L ALT 38 (12-78) U/L Alkaline Phosphatase 223 H (45-117) U/L Total Protein 5.4 L (6.4-8.2) gm/dl Albumin 2.4 L (3.4-5.0) gm/dl Globulin 3.0 (2.5-4.0) gm/dl Albumin/Globulin Ratio 0.8 L (0.9-2) Vitamin B12 (193-986) pg/ml Urine Color Urine Appearance (Clear) Urine pH (4.5-7.5) Ur Specific [place] (1.000-1.030) Urine Protein (Negative) Urine Glucose (UA) (Negative) Urine Ketones (Negative) Urine Blood (Negative) Urine Nitrite (Negative) Urine Bilirubin (Negative) Urine Urobilinogen (Negative) Ur Leukocyte Esterase (Negative) Urine WBC (Auto) (0-5) /hpf Urine RBC (Auto) (0-4) /hpf U Hyaline Cast (Auto) (0-5) /lpf U Epithel Cells (Auto) (0-5) /lpf Urine Bacteria (Auto) (Negative) COVID-19 Eval Order SARS-CoV-2, RNA, NAAT (NEGATIVE) Diagnostic Findings CXR IMPRESSION: No active disease in the chest. LUMBAR SPINE MRI IMPRESSION: 1. Interval progression of the abnormal epidural fluid collection from T12 through L5 which results in moderate mass effect along the thecal sac. This is concerning for an epidural hematoma or abscess. Surgical consultation advised. 2. Postoperative changes consistent with L3-S1 posterior decompression and fusion. The metallic artifact results in suboptimal evaluation within the central canal and adjacent soft tissues. 3. Moderate central canal narrowing at L1-L2 and L2-L3, unchanged. 4. Stable subcutaneous fluid collection and edema within the lumbar region. This favors a postoperative seroma. 5. These findings were discussed with Anabela Olmstead at 8:13 AM on 04/24/2020. PG Care Time/CCT Total # of Minutes Spent Total Time Spent with Patient: Total time spent is greater than 50% in coordination of care (as documented) at patient's floor/unit and/or counseling patient: Coding Level of Care Code 04863 Subseq Hosp Care Lvl 3 Diagnoses Status post lumbar spine operative procedure for decompression of spinal cord Z98.890 Acute UTI N39.0 Abdominal pain R10.30 Abdominal location: lower abdomen, unspecified Hypertension I10 Hypertension type: essential hypertension Pulmonary hypertension I27.20 Multiple pulmonary nodules R91.8 COPD (chronic obstructive pulmonary disease) J44.9 Anxiety and depression F41.9; F32.9 Hypokalemia E87.6 (1) Abdominal pain Abdominal location: lower abdomen, unspecified Qualified Code(s): R10.30 - Lower abdominal pain, unspecified (2) Hypertension Hypertension type: essential hypertension Qualified Code(s): I10 - Essential (primary) hypertension
[2020-04-24] MEDS ORDERED: INFLUENZA VACCINE HIGH DOSE 65+ 0.7 ML SYR IM ONE (09:00)
[2020-04-24] MEDS ORDERED: INFLUENZA ADMINISTRATION CHARGE ONE (09:00)
[2020-04-24] MEDS: HEPARIN SOD 5,000 UNIT/0.5 ML VIAL SQ SCH (09:23)
[2020-04-24] MEDS ORDERED: hydrALAZINE HCL 20 MG/ML VIAL IV PRN (09:24)
--- NOTE | 2020-04-24 09:45 | XRay Report ---
XR chest 1V portable CLINICAL HISTORY: pre-op COMPARISON STUDY: May 14, 2019 FINDINGS: The cardiac and mediastinal contours are normal. There is no evidence of focal pulmonary co nsolidation. There is no evidence of failure. No pleural effusions are visualized.[ The patient is mildly hyperinflated IMPRESSION: No active disease in the chest. ACT 112: Negative or not required by law. Electronically signed by: Zi Mcleod M.D. 04/24/2020 9:43 AM
[2020-04-24] MEDS: NSS + 20MEQ KCL 20 MEQ/1,000 ML BAG IV SCH ×2 (10:31→23:32)
[2020-04-24] MEDS: CHOLECALCIFEROL 1,000 UNITS 25 MCG TAB PO SCH (10:31)
[2020-04-24] MEDS: busPIRone 15 MG TAB PO SCH ×2 (10:31→20:50)
[2020-04-24] MEDS: DULoxetine HCL 30 MG CAP PO SCH (10:32)
[2020-04-24] MEDS: DULoxetine HCL 60 MG CAP PO SCH (10:32)
[2020-04-24] MEDS: amLODIPine BESYLATE 5 MG TAB PO SCH (10:32)
[2020-04-24] MEDS: POLYETHYLENE (MIRALAX) 17 GM PACK PO SCH (10:34)
[2020-04-24] MEDS: oxyCODONE HCL IR 5 MG TAB (IMMEDIATE RELEASE) PO PRN ×2 (10:40→16:52)
[2020-04-24] MEDS: FLUTICASONE/VILANTEROL 100/25MCG 14 PUFFS/INHALER INH SCH (10:43)
[2020-04-24] MEDS: bisacodyL 5 MG TABEC PO SCH (10:43)
[2020-04-24] MEDS: GABAPENTIN 300 MG CAP PO SCH ×3 (10:44→20:50)
[2020-04-24] MEDS: PANTOprazole 40 MG TAB PO SCH (10:44)
[2020-04-24] MEDS: UMECLIDINIUM BROMIDE 62.5MCG/BLISTER 7 PUFFS/INHALER INH SCH (10:44)
--- NOTE | 2020-04-24 11:15 | Electrocardiogram Report ---
Test Reason : Blood Pressure : / mmHG Vent. Rate : 094 BPM Atrial Rate : 094 BPM P-R Int : 148 ms QRS Dur : 086 ms QT Int : 358 ms P-R-T Axes : 070 072 058 degrees QTc Int : 447 ms Sinus rhythm with Premature atrial complexes Diffuse Minor Nonspecific ST abnormality Abnormal ECG When compared with ECG of 07-APR-2020 20:30, Premature atrial complexes are now Present Confirmed by Stephen Baez ([id number]) on 04/24/2020 11:14:30 AM Referred By: REFERRED SELF Confirmed By:Stephen Baez
--- NOTE | 2020-04-24 16:52 | Orthopedic Consultation ---
Date of Consultation April 24, 2020 Assessment & Plan (1) Lumbar disc herniation with radiculopathy: At this time she has an MRI was performed yesterday that demonstrates evidence of fluid collection predominantly in the L1 region of the lumbar spine. I was quite concerned about this however she does not present in typical fashion for an epidural abscess. She does not have any gross neural deficit. I would like to obtain a CRP and sed rate. We will initiate occupational physical therapy as well to see if she is able to tolerate this. If we note any decline or changes in status I may need to consider exploration and decompression of lumbar spine L1-L2. I have reviewed this in detail with her [id number] Darya. Present on Admission?: Yes History of Present Illness Reason for Consultation: Patient complaining of some continued weakness in the legs. Attending Physician: Avtar Rouse History of Present Illness This is a 79-year-old female well-known to me presents the emergency room last evening after failing to progress at home. Today she denies any significant back pain some discomfort to the left anterior thigh. She denies any numbness or tingling to the lower extremities. She was able to get to a bedside commode with assistance and without significant discomfort. She denies any loss of bowel bladder control. She does describe a fall at home that was controlled. Allergies Allergy/AdvReac Type Severity Reaction Status Date / Time nitrofurantoin Allergy Severe SOB, Verified 04/23/20 11:46 [From Macrobid] nausea, vomiting penicillin V Allergy Unknown CAN'T Verified 04/23/20 11:46 REMEMBER REACTION atorvastatin AdvReac Intermediate muscle pain Verified 04/23/20 11:46 ciprofloxacin AdvReac Intermediate REDNESS Verified 04/23/20 11:46 ALONG VEIN simvastatin AdvReac Intermediate muscle pain Verified 04/23/20 11:46 Home Medications Medication Instructions Recorded Confirmed Type buspirone 15 mg tablet 15 mg PO BID #60 tab 10/31/19 04/23/20 Rx cholecalciferol (vitamin D3) 50 mcg PO QAM 01/16/20 04/23/20 History albuterol sulfate 90 mcg/actuation 2 puff INH Q6H PRN #18 gm 01/25/20 04/23/20 Rx aerosol inhaler budesonide-formoterol HFA 160 2 puff INH BID #6 gm 01/25/20 04/23/20 Rx mcg-4.5 mcg/actuation aerosol inhaler ipratropium 0.5 mg-albuterol 3 mg 3 ml INH Q8H PRN #180 ml 01/25/20 04/23/20 Rx (2.5 mg base)/3 mL nebulization soln tiotropium bromide 2.5 2 puff INH QAM #4 g 01/25/20 04/23/20 Rx mcg/actuation mist for inhalation gabapentin 300 mg capsule 300 mg PO TID cap 02/24/20 04/23/20 History pantoprazole 40 mg tablet,delayed 40 mg PO DAILY #90 tab 02/24/20 04/23/20 Rx release amlodipine 5 mg tablet 5 mg PO QAM #90 tab 02/27/20 04/23/20 Rx duloxetine 30 mg PO DAILY 04/14/20 04/23/20 History polyethylene glycol 3350 [Miralax] 17 g PO DAILY #0 ea 04/19/20 04/23/20 Rx tramadol 50 mg PO BID PRN #20 tab 04/19/20 04/23/20 Rx duloxetine 60 mg PO QAM 04/23/20 04/23/20 History Patient History Medical History Anxiety Anxiety and depression Breast cancer (12/26/13) "Abnormal left breast mammogram Status post ultrasound-guided biopsies 10/06/2013 that revealed benign status post left breast excisional biopsy 12/02/2013 revealing infiltrating ductal carcinoma estrogen receptor positive, progesterone receptor positive, 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, stage pT2 Status post reexcision and sentinel lymph node biopsy 12/26/2013 pN0 (i+) Oncotype DX score of 11 Status post completion of radiation therapy 04/13/2014 received 5006 cGy utilizing hypo-fractionation Required post radiation wound care " Chronic back pain Chronic respiratory failure with hypoxia COPD (chronic obstructive pulmonary disease) Depression Dyspnea on exertion Elevated alkaline phosphatase level Facet arthritis of lumbar region Hearing decreased History of breast cancer 5 years ago - Left + surgery, no chemo Hypercholesteremia Hypertension Lesion of right [place] kidney patient is unaware Limb alert care status LUE no lab draws Multiple pulmonary nodules On home oxygen therapy 2 LPM QHS PRN > HAS DIFFICULTY WITH KEEPING ON AT HS Osteoarthritis Osteoporosis Osteoporosis PAC (premature atrial contraction) Prediabetes Pulmonary hypertension Sciatica Sleep disturbance Spinal stenosis Spinal stenosis Statin intolerance Stenosis of iliac artery Vitamin D deficiency disease Surgical History H/O lumbosacral spine surgery History of breast biopsy History of cataract surgery right and left History of colonoscopy History of D&C History of partial mastectomy of left breast History of right knee joint replacement History of tooth extraction Hx of oral surgery S/P breast lumpectomy Slow to wake up after anesthesia Family History Daughter Breast cancer Mother Aortic aneurysm Renal failure Brother Prostate cancer Aortic aneurysm Father Aortic aneurysm Pure hypercholesterolemia Hypertension Grandmother (Maternal) Colon cancer Unknown Diabetes Other No family history of adverse response to anesthesia Denies family history of Ovarian cancer Myocardial infarction Social History Smoking Status: Former smoker Tobacco Type: Cigarettes Cigarettes Per Day: 10-20; Smoking End Date: 04/21/20; Second Hand Exposure: No; Do You Dip or Chew Tobacco: No; Tobacco Cessation Education Requested by Patient: No Hx Alcohol Use: No Hx Substance Use: No Preferred Language: Vincentian Communication Ability: Effective Carpet Weaver Required: No Beliefs That Will Affect Care: None marital status: / Current Living Situation: Alone Current Living Situation Comment: dtr stays with patient current occupational status: retired Other Information That Helps Us Care for You: No Feels Safe at Home: Yes Safety Concerns: Feels Safe At This Time Seatbelt Use: always Assistive Devices: Glasses Physical Exam Physical Exam: On exam she was able to sit up without difficulty. Her inc ision is clean dry intact no erythema no drainage nontender palpation. She exhibits plus out of 5 bilateral plantar flexion dorsiflexion quadriceps on the right. Left quadriceps is quite diminished but is has improved from her exam last week by at least 10%. She now has some resistance to gravity. Results & Data ([facility]) Vital Signs (Past 12 Hours) Vital Signs Temp Pulse Resp BP Pulse Ox 04/24/20 15:27 36.9 C 95 H 19 123/78 93 04/24/20 07:29 36.7 C 93 H 18 159/90 H 95
[2020-04-24] MEDS: MoRPHine SULFATE 4 MG/ML 1 ML CARP\\VIAL IV PRN (20:49)
[2020-04-25] MEDS: oxyCODONE HCL IR 5 MG TAB (IMMEDIATE RELEASE) PO PRN ×2 (00:02→13:41)
[2020-04-25 08:07] LABS: Hematocrit (blood only) 34.4 % (37-47); Hemoglobin 11.3 g/dL (12.0-16.0); Mean Corpuscular Hemoglobin 30.5 pg (25-34); Mean Corpuscular Hgb Conc 32.8 g/dL (32-36); Mean Corpuscular Volume 92.7 fL (80-100); Mean Platelet Volume 8.1 fL (7.4-10.4); Platelet Count 315 K/uL (130-400); RDW Coefficient of Variation 15.6 % (11.5-14.5); RDW Standard Deviation 52.9 fL (36.4-46.3); Red Blood Count 3.71 M/uL (4.2-5.4); White Blood Count 5.63 K/uL (4.8-10.8)
[2020-04-25 08:47] LABS: Albumin Globulin Ratio 0.8 (0.9-2); Albumin Level 2.4 gm/dl (3.4-5.0); BUN Creatinine Ratio 15.8 (10-20); Bilirubin,Total 0.4 mg/dl (0.2-1); Calcium 9.4 mg/dl (8.5-10.1); Creatinine Clr Calc Pharmacy 72.9 ml/min; Est GFR (African American) 97.4; Potassium 3.9 mmol/L (3.5-5.1); Total Protein 5.4 gm/dl (6.4-8.2)
[2020-04-25 09:01] LABS: Lyme Ab IgG w/WB Rflx Negative (Negative); Lyme Ab IgM w/WB Rflx Negative (Negative)
--- NOTE | 2020-04-25 09:17 | Hospitalist Progress Note ---
Date of Service April 25, 2020 Assessment & Plan (1) Status post lumbar spine operative procedure for decompression of spinal cord: * S/p lumbar decompression and fusion with Dr. Guaman on 04/04/2020. * Dr. Guaman following - Lumbar MRI on 04/15 showed small intracanalicular fluid collection within the posterior aspect of the canal at the L5 level with mild to moderate mass effect upon the thecal sac. * During last admit pt was seen with Dr. Guaman on 04/17 - Feels spinal surgery is stable and encourages PT/OT (she did not want rehab initially but is now agreeable) Repeat MRI during this admission with: * 1. Interval progression of the abnormal epidural fluid collection from T12 through L5 which results in moderate mass effect along the thecal sac. This is concerning for an epidural hematoma or abscess. Surgical consultation advised. * 2. Postoperative changes consistent with L3-S1 posterior decompression and fusion. The metallic artifact results in suboptimal evaluation within the central canal and adjacent soft tissues. * 3. Moderate central canal narrowing at L1-L2 and L2-L3, unchanged. * 4. Stable subcutaneous fluid collection and edema within the lumbar region. This favors a postoperative seroma. * Blood cultures NGTD * Lyme negative * Procal negative * CK 72 * Urine without growth on preliminary --follow * Has not been on abx during admission and WBC wnl and remains afebrile * Discussed with Dr. Guaman (on consult) -- feels we can give diet and continue PT/OT and rehab at [facility] at d/c * CM following and will sent for auth once PT/OT evals completed * Continue pain control with morphine prn, oxycodone prn * --> Will add lidocaine patch and baclofen prn for muscle spasms (hx IT band issues and could be exacerbated) * ESR 31 (no prior), CRP 0.86 (was 14 Apr 15) (2) Acute UTI: * Hx of such, 04/14 had UTI growing out enterococcus faecalis. Repeat UA on admission today with trace nitrate, esterase and possible considering having indwelling sharma during last admission vs not completely clearing UTI. She is currently asymptomatic. * Repeat UCx sent, follow for sensitivity and specificity. * Hold on antibiotics at this time since afebrile and without leukocytosis * Urine culture without growth on preliminary -- follow (was discharged on cipro/flagyl which should have covered ) (3) Abdominal pain: * During most recent admission was on ceftriaxone/flagyl for mild diverticulitis and finished recent course as an outpatient. * No abdominal pain or diarrhea noted at this time * Continue to monitor (4) Hypertension: * Continue amlodipine (had not gotten yet this morning and BP elevated to 162/82) * Continue amlodipine -- consider increasing dose if BP continues to be elevated with adequate pain control * Consider outpatient sleep study for CPAP as well -- discussed with patient and she is to utilize O2 HS and with napping for now * Continue to monitor (5) Pulmonary hypertension: * Presumed. Last echo from 11/09/18 reviewed showing elevated right ventricular systolic pressure at 30-40 mmHG - can only confirm with a right heart cath. * Has O2 prn at home but uses intermittently * Overnight pulse ox with sats dropping to 69% * Discussed likely benefit from CPAP and will need formal sleep study outpatient (6) Multiple pulmonary nodules: * Follow up per outpatient for routine CT imaging (7) COPD (chronic obstructive pulmonary disease): * Has supplemental O2 2 L for PRN use, pt reports she is not sure when she is supposed to wear it other than "when I feel like it." * Titrate O2 88-92 %, currently 92% on room air * Continue home inhalers * See above -- O2 HS and while napping with outpatient follow up (8) Hypokalemia: * K 3.3. and given PO replacement and added to IVF with repeat 3.9 * Mag wnl. * BMP in AM now that IVF discontinued (9) Anxiety and depression: * Continue BuSpar, Cymbalta * Would recommend counseling upon discharge . can also discuss increasing medications (previous admission 2018 with increase in buspar) * Likely some component of repeat hospitalizations and back pain issues * No need for inpatient eval at this time DVT ppx: teds, scds, heparin subq initially and then held for possible OR -- resumed now that plans without intervention CODE: FULL Dispo: CM following -- patient agreeable to rehab at discharge. PT/OT evals pending Admission and Anticipated Discharge Date Admission Date: April 23, 2020 Subjective Patient evaluated this morning. Resting comfortably in bed. States morphine helped last evening but was not as effective this morning. Did have an eventful night/morning with rowdy roommate. Pain to her left buttock with radiation to her knee. No numbness/tingling although she states it is hard to describe. Discussed oral pain control and appears to have some MSK component and may benefit from baclofen. She states there had been talk of muscle relaxer in the past but she has never tried. Also willing to try lidocaine patch. She noted previous improvement with that but nakul t was when pain was at a lower level. She would like to avoid surgery if possible -- discussed I spoke with Dr. Guaman extensively and feel that not warranted at this time given labs/physical exam b ut that he will be by this afternoon for evaluation/decision. Discussed oxygen use -- she states she uses intermittently. Discussed overnight pulse ox study and that she should be utilizing at night and when napping as her sats dropped to the 60s and could be not only contributing to elevated BPs but daytime sleepiness/fatigue. Will need outpatient sleep study for possible CPAP. Initially did not seem interested, however discussed various masks/nasal pillows and she really should attempt use for at least a month once qualified to notice a difference. Moved her bowels this morning. Thirsty and mouth dry, requested and provided with biotene. Will order diet. No fever, chills, chest pain, shortness of breath, abdominal pain, nausea, vomiting or dysuria. Questions/concerns addressed at this time. Review of Systems Review of Systems: All systems reviewed & are unremarkable except as noted in HPI & below Physical Exam Physical Exam: General: awake, alert, no apparent distress, + obese , resting comfortably in bed Head: Normocephalic, atraumatic ENT: PERRL, EOMI, no pharyngeal exudate, mucous membranes dry Chest: Clear to auscultation, on room air, no adventitious breath sounds Cardiac: Regular rate and rhythm, no murmur, no JVD, normal peripheral pulses, good capillary refill Abdominal: NABS x 4 quadrants, soft, nondistended, nontender to palpation, no rebound or guarding MSK: surgical incision is healing well, intact, no surrounding erythema or edema, no purulent material expressed from region. no point tenderness over the spine. + tenderness in left lumbar region which extends to the left gluteal region. able to flex/extend at the knees. decreased at the hips due to increased pain but does have improved strength. NVI. pulses palpable bilaterally Extremities: Normal inspection, no peripheral edema or erythema, calfs nontender to palpation Psych: AOX3, euthymic Neuro: DTRs intact, no face palsy, no dysarthria, EOMI Results & Data Results & Data ([facility]) Vital Signs (Past 12 Hours) Vital Signs Temp Pulse Pulse Resp BP Pulse Ox Pulse Ox 04/25/20 07:11 36.4 C L 93 H 16 162/82 H 92 04/25/20 03:38 81 91 04/24/20 22:40 36.6 C 86 20 157/88 H 92 04/24/20 21:25 87 91 Laboratory Results 04/25/20 04/25/20 04/25/20 Range/Units 07:51 07:51 07:51 WBC 5.63 (4.8-10.8) K/uL RBC 3.71 L (4.2-5.4) M/uL Hgb 11.3 L (12.0-16.0) g/dL Hct 34.4 L (37-47) % MCV 92.7 (80-100) fL MCH 30.5 (25-34) pg MCHC 32.8 (32-36) g/dL RDW Std Deviation 52.9 H (36.4-46.3) fL RDW Coeff of Hipolito 15.6 H (11.5-14.5) % Plt Count 315 (130-400) K/uL MPV 8.1 (7.4-10.4) fL ESR (0-21) mm/hr Sodium 144 (136-145) mmol/L Potassium 3.9 D (3.5-5.1) mmol/L Chloride 114 H (98-107) mmol/L Carbon Dioxide 23 (21-32) mmol/L Anion Gap 7.0 (3-11) BUN 10 (7-18) mg/dl Creatinine 0.66 (0.6-1.2) mg/dl Est Cr Clr Drug Dosing 72.9 ml/min Est GFR ( Amer) 97.4 Est GFR (Non-Af Amer) 84.0 BUN/Creatinine Ratio 15.8 (10-20) Glucose 84 (70-99) mg/dl Calcium 9.4 (8.5-10.1) mg/dl Total Bilirubin 0.4 (0.2-1) mg/dl AST 23 (15-37) U/L ALT 34 (12-78) U/L Alkaline Phosphatase 235 H (45-117) U/L Troponin I (0-0.045) ng/ml C-Reactive Protein (0-0.29) mg/dl Total Protein 5.4 L (6.4-8.2) gm/dl Albumin 2.4 L (3.4-5.0) gm/dl Globulin 3.0 (2.5-4.0) gm/dl Albumin/Globulin Ratio 0.8 L (0.9-2) Vitamin B12 (193-986) pg/ml Cortisol AM Sample 20.26 (4.3-22.4) mcg/dl Lyme Disease IgG Ab (Negative) Lyme Disease IgM Ab (Negative) 04/25/20 04/24/20 04/24/20 Range/Units 07:51 08:55 06:17 WBC (4.8-10.8) K/uL RBC (4.2-5.4) M/uL Hgb (12.0-16.0) g/dL Hct (37-47) % MCV (80-100) fL MCH (25-34) pg MCHC (32-36) g/dL RDW Std Deviation (36.4-46.3) fL RDW Coeff of Hipolito (11.5-14.5) % Plt Count (130-400) K/uL MPV (7.4-10.4) fL ESR (0-21) mm/hr Sodium (136-145) mmol/L Potassium (3.5-5.1) mmol/L Chloride (98-107) mmol/L Carbon Dioxide (21-32) mmol/L Anion Gap (3-11) BUN (7-18) mg/dl Creatinine (0.6-1.2) mg/dl Est Cr Clr Drug Dosing ml/min Est GFR ( Amer) Est GFR (Non-Af Amer) BUN/Creatinine Ratio (10-20) Glucose (70-99) mg/dl Calcium (8.5-10.1) mg/dl Total Bilirubin (0.2-1) mg/dl AST (15-37) U/L ALT (12-78) U/L Alkaline Phosphatase (45-117) U/L Troponin I (0-0.045) ng/ml C-Reactive Protein 0.86 H (0-0.29) mg/dl Total Protein (6.4-8.2) gm/dl Albumin (3.4-5.0) gm/dl Globulin (2.5-4.0) gm/dl Albumin/Globulin Ratio (0.9-2) Vitamin B12 654 (193-986) pg/ml Cortisol AM Sample (4.3-22.4) mcg/dl Lyme Disease IgG Ab Negative (Negative) Lyme Disease IgM Ab Negative (Negative) 04/24/20 04/24/20 Range/Units 06:17 06:17 WBC (4.8-10.8) K/uL RBC (4.2-5.4) M/uL Hgb (12.0-16.0) g/dL Hct (37-47) % MCV (80-100) fL MCH (25-34) pg MCHC (32-36) g/dL RDW Std Deviation (36.4-46.3) fL RDW Coeff of Hipolito (11.5-14.5) % Plt Count (130-400) K/uL MPV (7.4-10.4) fL ESR 31 H (0-21) mm/hr Sodium (136-145) mmol/L Potassium (3.5-5.1) mmol/L Chloride (98-107) mmol/L Carbon Dioxide (21-32) mmol/L Anion Gap (3-11) BUN (7-18) mg/dl Creatinine (0.6-1.2) mg/dl Est Cr Clr Drug Dosing ml/min Est GFR ( Amer) Est GFR (Non-Af Amer) BUN/Creatinine Ratio (10-20) Glucose (70-99) mg/dl Calcium (8.5-10.1) mg/dl Total Bilirubin (0.2-1) mg/dl AST (15-37) U/L ALT (12-78) U/L Alkaline Phosphatase (45-117) U/L Troponin I < 0.015 (0-0.045) ng/ml C-Reactive Protein (0-0.29) mg/dl Total Protein (6.4-8.2) gm/dl Albumin (3.4-5.0) gm/dl Globulin (2.5-4.0) gm/dl Albumin/Globulin Ratio (0.9-2) Vitamin B12 (193-986) pg/ml Cortisol AM Sample (4.3-22.4) mcg/dl Lyme Disease IgG Ab (Negative) Lyme Disease IgM Ab (Negative) PG Care Time/CCT Total # of Minutes Spent Total Time Spent with Patient: Total time spent is greater than 50% in coordination of care (as documented) at patient's floor/unit and/or counseling patient: Coding Level of Care Code 35135 Subseq Hosp Care Lvl 3 Diagnoses Status post lumbar spine operative procedure for decompression of spinal cord Z98.890 Acute UTI N39.0 Abdominal pain R10.30 Abdominal location: lower abdomen, unspecified Hypertension I10 Hypertension type: essential hypertension Pulmonary hypertension I27.20 Multiple pulmonary nodules R91.8 COPD (chronic obstructive pulmonary disease) J44.9 Hypokalemia E87.6 Anxiety and depression F41.9; F32.9 (1) Abdominal pain Abdominal location: lower abdomen, unspecified Qualified Code(s): R10.30 - Lower abdominal pain, unspecified (2) Hypertension Hypertension type: essential hypertension Qualified Code(s): I10 - Essential (primary) hypertension
[2020-04-25] MEDS: PANTOprazole 40 MG TAB PO SCH (09:37)
[2020-04-25] MEDS: POLYETHYLENE (MIRALAX) 17 GM PACK PO SCH (09:38)
[2020-04-25] MEDS: DULoxetine HCL 60 MG CAP PO SCH (09:38)
[2020-04-25] MEDS: busPIRone 15 MG TAB PO SCH ×2 (09:38→21:22)
[2020-04-25] MEDS: bisacodyL 5 MG TABEC PO SCH (09:38)
[2020-04-25] MEDS: UMECLIDINIUM BROMIDE 62.5MCG/BLISTER 7 PUFFS/INHALER INH SCH (09:38)
[2020-04-25] MEDS: CHOLECALCIFEROL 1,000 UNITS 25 MCG TAB PO SCH (09:38)
[2020-04-25] MEDS: DULoxetine HCL 30 MG CAP PO SCH (09:38)
[2020-04-25] MEDS: amLODIPine BESYLATE 5 MG TAB PO SCH (09:38)
[2020-04-25] MEDS: GABAPENTIN 300 MG CAP PO SCH ×3 (09:38→21:22)
[2020-04-25] MEDS: FLUTICASONE/VILANTEROL 100/25MCG 14 PUFFS/INHALER INH SCH (09:39)
[2020-04-25] MEDS: MoRPHine SULFATE 4 MG/ML 1 ML CARP\\VIAL IV PRN ×2 (12:06→22:00)
[2020-04-25] MEDS: NSS + 20MEQ KCL 20 MEQ/1,000 ML BAG IV SCH (12:30)
--- NOTE | 2020-04-25 12:59 | Ultrasound Report ---
ULTRASOUND RIGHT UPPER QUADRANT ABDOMEN CLINICAL HISTORY: Poor appetite. Weakness. Elevated alkaline phosphatase. COMPARISON STUDY: Abdominal CT dated 04/14/2020. TECHNIQUE: Real-time, grayscale, and color flow sonography of the right upper quadrant of the abdomen was performed. Images are reviewed in the transverse and longitudinal planes. FINDINGS: Liver: The liver is cirrhotic in morphology and heterogeneous in echotexture. There is nodularity of the hepatic surface contour. There is no intrahepatic biliary ductal dilatation. The main portal vein is patent. Gallbladder: The gallbladder is normal in appearance. No gallstones are identified. There is no gallb ladder wall thickening or pericholecystic fluid. A sonographic Taylor's sign is reportedly absent. Th e common bile duct measures up to 0.6 cm in diameter. Pancreas: Visualized portions of the pancreatic head and body are normal in appearance. Right kidney: Survey images of the right kidney demonstrate normal size and echotexture. There is no hydronephrosis. Ascites: None. IMPRESSION: 1. Cirrhotic liver morphology. 2. No gallstones are identified. ACT 112: Negative or not required by law. Electronically signed by: Lane Hammer M.D. 04/25/2020 12:58 PM
[2020-04-25] MEDS: LIDOCAINE 5% 1 PATCH TD SCH (16:00)
[2020-04-25 16:04] LABS: Prothrombin Time 10.6 Seconds (9.0-12.0)
[2020-04-25 16:32] LABS: Hepatitis B Surf Ag Rflx Conf Neg (Neg)
--- NOTE | 2020-04-25 16:32 | Orthopedic Progress Note ---
Date of Service April 25, 2020 Assessment & Plan (1) Status post lumbar spine operative procedure for decompression of spinal cord: Admission and Anticipated Discharge Date Admission Date: April 23, 2020 This time your lab results continue to demonstrate no evidence of epidural abscess. Clinically she does not appear to have an epidural abscess. We will continue with physical therapy and watch her closely. She would be a candidate for rehab in the next few days. Subjective Patient's back pain is controlled. She has some left leg symptoms intermittently but not as severe as she was preop. She describes a fear of walking secondary to the risk of fall. Physical Exam Physical Exam: On exam incision is clean dry and intact no erythema nontender to palpation. She is able to sit up without pain. She exhibits improved strength left quadricep but still quite limited. Otherwise good strength in bilateral plantar flexion dorsiflexion. Results & Data ([facility]) Vital Signs (Past 12 Hours) Vital Signs Temp Pulse Resp BP Pulse Ox 04/25/20 14:14 36.9 C 92 H 16 147/84 H 96 04/25/20 07:11 36.4 C L 93 H 16 162/82 H 92
[2020-04-25 17:00] LABS: Hepatitis C IgG 13Yrs+Old_Rflx Neg (Neg)
[2020-04-25] MEDS: BACLOFEN 10 MG TAB PO PRN (18:09)
[2020-04-25] MEDS: HEPARIN SOD 5,000 UNIT/0.5 ML VIAL SQ SCH (22:00)
[2020-04-26 05:56] LABS: Hematocrit (blood only) 32.5 % (37-47); Hemoglobin 10.6 g/dL (12.0-16.0); Mean Corpuscular Hemoglobin 30.5 pg (25-34); Mean Corpuscular Hgb Conc 32.6 g/dL (32-36); Mean Corpuscular Volume 93.4 fL (80-100); Mean Platelet Volume 8.5 fL (7.4-10.4); Platelet Count 358 K/uL (130-400); RDW Coefficient of Variation 15.7 % (11.5-14.5); RDW Standard Deviation 53.3 fL (36.4-46.3); Red Blood Count 3.48 M/uL (4.2-5.4); White Blood Count 5.89 K/uL (4.8-10.8)
[2020-04-26 06:27] LABS: Albumin Level 2.2 gm/dl (3.4-5.0); BUN Creatinine Ratio 17.3 (10-20); Calcium 8.7 mg/dl (8.5-10.1); Creatinine Clr Calc Pharmacy 61.7 ml/min; Est GFR (African American) 83.8; Est GFR (Non-African American) 72.3; Potassium 3.7 mmol/L (3.5-5.1)
[2020-04-26 06:29] LABS: Albumin Globulin Ratio 0.8 (0.9-2); Bilirubin,Total 0.4 mg/dl (0.2-1); Globulin 2.8 gm/dl (2.5-4.0)
--- NOTE | 2020-04-26 07:17 | Ultrasound Report ---
US venous doppler LE LT CLINICAL HISTORY: Left leg pain COMPARISON STUDY: November 01, 2014 FINDINGS: Real-time and color flow Doppler imaging were performed. Flow was seen within the femoral, popliteal and calf veins with no intraluminal thrombus demonstrated. The saphenous vein is patent. Th ere is a 23 x 29 x 9 mm left popliteal cyst. IMPRESSION: 1. No evidence of left lower extremity DVT 2. Small left popliteal cyst ACT 112: Negative or not required by law. Electronically signed by: Zi Mcleod M.D. 04/26/2020 7:16 AM
[2020-04-26] MEDS: HEPARIN SOD 5,000 UNIT/0.5 ML VIAL SQ SCH ×2 (08:43→21:55)
[2020-04-26] MEDS: busPIRone 15 MG TAB PO SCH ×2 (08:43→21:55)
[2020-04-26] MEDS: DULoxetine HCL 30 MG CAP PO SCH (08:44)
[2020-04-26] MEDS: GABAPENTIN 300 MG CAP PO SCH ×3 (08:44→21:55)
[2020-04-26] MEDS: DULoxetine HCL 60 MG CAP PO SCH (08:44)
[2020-04-26] MEDS: PANTOprazole 40 MG TAB PO SCH (08:44)
[2020-04-26] MEDS: FLUTICASONE/VILANTEROL 100/25MCG 14 PUFFS/INHALER INH SCH (08:46)
[2020-04-26] MEDS: POLYETHYLENE (MIRALAX) 17 GM PACK PO SCH (08:49)
[2020-04-26] MEDS: UMECLIDINIUM BROMIDE 62.5MCG/BLISTER 7 PUFFS/INHALER INH SCH (08:49)
[2020-04-26] MEDS: bisacodyL 5 MG TABEC PO SCH ×2 (08:49→12:15)
--- NOTE | 2020-04-26 09:04 | Hospitalist Progress Note ---
Date of Service April 26, 2020 Assessment & Plan (1) Weakness: * S/p lumbar decompression and fusion with Dr. Guaman on 04/04/2020. * Dr. Guaman following - Lumbar MRI on 04/15 showed small intracanalicular fluid collection within the posterior aspect of the canal at the L5 level with mild to moderate mass effect upon the thecal sac. * During last admit pt was seen with Dr. Guaman on 04/17 - Feels spinal surgery is stable and encourages PT/OT (she did not want rehab initially but is now a greeable) * Was then admitted subsequently for suspected diverticulitis requiring hospitalization and contributing further to deconditioning * Blood cultures NGTD * Lyme negative * Procal negative * CK 72 * AM Cortisol wnl * B12 wnl * CXR without acute process * Urine without infection, FINAL * Has not been on abx during admission and WBC wnl and remains afebrile Repeat MRI during this admission with: * 1. Interval progression of the abnormal epidural fluid collection from T12 through L5 which results in moderate mass effect along the thecal sac. This is concerning for an epidural hematoma or abscess. Surgical consultation advised. * 2. Postoperative changes consistent with L3-S1 posterior decompression and fusion. The metallic artifact results in suboptimal evaluation within the central canal and adjacent soft tissues. * 3. Moderate central canal narrowing at L1-L2 and L2-L3, unchanged. * 4. Stable subcutaneous fluid collection and edema within the lumbar region. This favors a postoperative seroma. Discussed with Dr. Guaman (on consult) -- feels no evidence clinically for abscess or need for surgery at this time. Recommending rehab at discharge to improve strength/function * CM following * Continue pain control with morphine prn, oxycodone prn * --> Added lidocaine patch and baclofen prn on 04/25 for muscle spasms (hx IT band issues and could be exacerbated) -- patient states benefit and we will continue these at discharge * US Doppler with small popliteal cyst which could also exacerbate issues, but only mildly * ESR 31 (no prior), CRP 0.86 (was 14 Apr 15) * Remains afebrile, WBC wnl at 5.8k * Plans for pre-peer to peer this afternoon for hopeful discharge to [facility] (never received call -- insurance closed at 5pm and will attempt again tomorrow) * Patient has weakness and repeated hospitalization for diverticulitis with short rehab stay that was previously not helpful. * Re-presented (lives alone) after a fall and subsequent increase in pain requiring pain control and additional agents to achieve pain relief. * Given sac on spine on MRI, will need continued monitoring and should ideally be seen daily by a physician * PT/OT zohaibals while inpatient with recommendations for short acute rehab at discharge * Ambulating 35 feet with RW and CGA with occasional minimum assist of 1 -- given that she lives alone and had repeat fall prior to admission, I feel she is unsafe for discharge home and requires level of care such as [facility] so that provider is rounding on her daily to ensure pain control and continued monitoring so that she is able to participate in therapy and will be safe for discharge from [facility] back to home. (2) Status post lumbar spine operative procedure for decompression of spinal cord: see above (3) Acute UTI: * Hx of such, 04/14 had UTI growing out enterococcus faecalis. Repeat UA on admission today with trace nitrate, esterase and possible considering having indwelling Sibley during last admission vs not completely clearing UTI. She is currently asymptomatic. * Repeat UCx sent, follow for sensitivity and specificity --> FINAL NO GROWTH * Hold on antibiotics at this time since afebrile and without leukocytosis (4) Abdominal pain: * During most recent admission was on ceftriaxone/flagyl for mild diverticulitis and finished recent course as an outpatient. * No abdominal pain or diarrhea noted at this time * Continue to monitor (5) Hypertension: * Continue amlodipine but will increase to 10mg daily (continue to utilize semaj hose to prevent swelling) given continued elevations in BP, although this afternoon better controlled with pain relief but still elevated at 149/83 * Consider outpatient sleep study for CPAP as well -- discussed with patient and she is to utilize O2 HS and with napping for now * Discussed with patient and she seems agreeable for follow up sleep study but may decide not to utilize CPAP if unable to tolerate * Continue to monitor (6) Pulmonary hypertension: * Presumed. Last echo from 11/09/18 reviewed showing elevated right ventricular systolic pressure at 30-40 mmHG - can only confirm with a right heart cath. * Has O2 prn at home but uses intermittently * Overnight pulse ox with sats dropping to 69% * Discussed likely benefit from CPAP and will need formal sleep study outpatient * Asked nursing to please encourage O2 when sleeping/napping -- patient has refused this morning but RN to encourage use tonight (7) Multiple pulmonary nodules: * Follow up per outpatient for routine CT imaging (8) COPD (chronic obstructive pulmonary disease): * Has supplemental O2 2 L for PRN use, pt reports she is not sure when she is supposed to wear it other than "when I feel like it." * Titrate O2 88-92 %, currently 93% on room air * Continue home inhalers * See above -- O2 HS and while napping with outpatient follow up (9) Hypokalemia: * RESOLVED (10) Cirrhosis: * Completed RUQ US for elevated alk phos and anorexia on admission/decreased appetite [employer] to r/o smoldering GB infection. Alk phos 223 from 235 * No evidence for acute dong but did not cirrhotic liver -- had previously not been noted on prior abdominal imaging * Hepatitis panel pending * INR wnl * Ammonia <10 * Would rec f/u outpatient for continued monitoring * Will repeat labs in AM (11) Anxiety and depression: * Continue BuSpar, Cymbalta * Would recommend counseling upon discharge . can also discuss increasing medications (previous admission 2018 with increase in buspar) * Likely some component of repeat hospitalizations and back pain issues * No need for inpatient eval at this time DVT ppx: teds, scds, heparin subq initially and then held for possible OR -- resumed 04/25 as no plans for surgery CODE: FULL Dispo: PT/OT with recommendations for rehab at discharge, awaiting call from insurance for P2P for hopeful d/c to [facility] (hopefully tomorrow) Admission and Anticipated Discharge Date Admission Date: April 23, 2020 Subjective Patient evaluated this morning. Pain control improved with lidocaine patch and she does feel like she got some relief with the baclofen yesterday for spasm pain. Awaiting [id number] this afternoon for approval to [facility] at discharge. To occur between 3-4pm , however no tj received and will be available tomorrow to attempt again for approval. Requested contact sister -- called and left voicemail. Patient eating/drinking, moving her bowels (last BM 04/25 reported). Able to get some sleep and moved to bed 2. No fever, chills, chest pain, shortness of breath, abdominal pain, nausea, vomiting reported. Will remain inpatient overnight -- discussed with evening nurse as patient sleeping comfortably to let her know discharge delayed due to not receiving call and to encourage oxygen when patient is napping. Review of Systems Review of Systems: All systems reviewed & are unremarkable except as noted in HPI & below Physical Exam Physical Exam: General: awake, alert, no apparent distress, + obese , resting comfortably up in chair Head: Normocephalic, atraumatic ENT: PERRL, EOMI, no pharyngeal exudate, mucous membranes moist Chest: Clear to auscultation, on room air, no adventitious breath sounds Cardiac: Regular rate and rhythm, no murmur, no JVD, normal peripheral pulses, good capillary refill Abdominal: NABS x 4 quadrants, soft, nondistended, nontender to palpation, no rebound or guarding MSK: surgical incision is healing well, intact, no surrounding erythema or edema, no purulent material expressed from region. no point tenderness over the spine. + tenderness in left lumbar region which extends to the left gluteal region. able to flex/extend at the knees. decreased at the hips due to increased pain but does have improved strength. full AROM LLE however does have weakness compared to RLE NVI. pulses palpable bilaterally Extremities: Normal inspection, no peripheral edema or erythema, calfs nontender to palpation Psych: AOX3 Neuro: DTRs intact, no face palsy, no dysarthria, EOMI Results & Data Results & Data ([facility]) Vital Signs (Past 12 Hours) Vital Signs Temp Pulse Pulse Resp BP Pulse Ox 04/26/20 07:20 37.0 C 86 18 156/85 H 93 04/26/20 00:21 99 H 156/82 H 04/25/20 22:00 36.6 C 89 20 155/103 H 94 Laboratory Results 04/26/20 04/26/20 04/25/20 Range/Units 05:33 05:33 15:38 WBC 5.89 (4.8-10.8) K/uL RBC 3.48 L (4.2-5.4) M/uL Hgb 10.6 L (12.0-16.0) g/dL Hct 32.5 L (37-47) % MCV 93.4 (80-100) fL MCH 30.5 (25-34) pg MCHC 32.6 (32-36) g/dL RDW Std Deviation 53.3 H (36.4-46.3) fL RDW Coeff of Hipolito 15.7 H (11.5-14.5) % Plt Count 358 (130-400) K/uL MPV 8.5 (7.4-10.4) fL PT (9.0-12.0) Seconds INR (0.9-1.1) Sodium 142 (136-145) mmol/L Potassium 3.7 (3.5-5.1) mmol/L Chloride 112 H (98-107) mmol/L Carbon Dioxide 25 (21-32) mmol/L Anion Gap 5.0 (3-11) BUN 14 (7-18) mg/dl Creatinine 0.78 (0.6-1.2) mg/dl Est Cr Clr Drug Dosing 61.7 ml/min Est GFR ( Amer) 83.8 Est GFR (Non-Af Amer) 72.3 BUN/Creatinine Ratio 17.3 (10-20) Glucose 115 H (70-99) mg/dl Calcium 8.7 (8.5-10.1) mg/dl Total Bilirubin 0.4 (0.2-1) mg/dl AST 17 (15-37) U/L ALT 27 (12-78) U/L Alkaline Phosphatase 223 H (45-117) U/L Ammonia (11-32) umol/L Total Creatine Kinase (26-192) U/L Total Protein 5.0 L (6.4-8.2) gm/dl Albumin 2.2 L (3.4-5.0) gm/dl Globulin 2.8 (2.5-4.0) gm/dl Albumin/Globulin Ratio 0.8 L (0.9-2) Hepatitis A IgM Ab Pending Hep Bs Antigen (Neg) Hep B Core IgM Ab Pending Hepatitis C Antibody (Neg) 04/25/20 04/25/20 04/25/20 Range/Units 15:38 15:38 15:38 WBC (4.8-10.8) K/uL RBC (4.2-5.4) M/uL Hgb (12.0-16.0) g/dL Hct (37-47) % MCV (80-100) fL MCH (25-34) pg MCHC (32-36) g/dL RDW Std Deviation (36.4-46.3) fL RDW Coeff of Hipolito (11.5-14.5) % Plt Count (130-400) K/uL MPV (7.4-10.4) fL PT 10.6 (9.0-12.0) Seconds INR 1.0 (0.9-1.1) Sodium (136-145) mmol/L Potassium (3.5-5.1) mmol/L Chloride (98-107) mmol/L Carbon Dioxide (21-32) mmol/L Anion Gap (3-11) BUN (7-18) mg/dl Creatinine (0.6-1.2) mg/dl Est Cr Clr Drug Dosing ml/min Est GFR ( Amer) Est GFR (Non-Af Amer) BUN/Creatinine Ratio (10-20) Glucose (70-99) mg/dl Calcium (8.5-10.1) mg/dl Total Bilirubin (0.2-1) mg/dl AST (15-37) U/L ALT (12-78) U/L Alkaline Phosphatase (45-117) U/L Ammonia < 10.0 L (11-32) umol/L Total Creatine Kinase (26-192) U/L Total Protein (6.4-8.2) gm/dl Albumin (3.4-5.0) gm/dl Globulin (2.5-4.0) gm/dl Albumin/Globulin Ratio (0.9-2) Hepatitis A IgM Ab Hep Bs Antigen Neg (Neg) Hep B Core IgM Ab Hepatitis C Antibody Neg (Neg) 04/25/20 Range/Units 07:51 WBC (4.8-10.8) K/uL RBC (4.2-5.4) M/uL Hgb (12.0-16.0) g/dL Hct (37-47) % MCV (80-100) fL MCH (25-34) pg MCHC (32-36) g/dL RDW Std Deviation (36.4-46.3) fL RDW Coeff of Hipolito (11.5-14.5) % Plt Count (130-400) K/uL MPV (7.4-10.4) fL PT (9.0-12.0) Seconds INR (0.9-1.1) Sodium (136-145) mmol/L Potassium (3.5-5.1) mmol/L Chloride (98-107) mmol/L Carbon Dioxide (21-32) mmol/L Anion Gap (3-11) BUN (7-18) mg/dl Creatinine (0.6-1.2) mg/dl Est Cr Clr Drug Dosing ml/min Est GFR ( Amer) Est GFR (Non-Af Amer) BUN/Creatinine Ratio (10-20) Glucose (70-99) mg/dl Calcium (8.5-10.1) mg/dl Total Bilirubin (0.2-1) mg/dl AST (15-37) U/L ALT (12-78) U/L Alkaline Phosphatase (45-117) U/L Ammonia (11-32) umol/L Total Creatine Kinase 72 (26-192) U/L Total Protein (6.4-8.2) gm/dl Albumin (3.4-5.0) gm/dl Globulin (2.5-4.0) gm/dl Albumin/Globulin Ratio (0.9-2) Hepatitis A IgM Ab Hep Bs Antigen (Neg) Hep B Core IgM Ab Hepatitis C Antibody (Neg) PG Care Time/CCT Total # of Minutes Spent Total Time Spent with Patient: Total time spent is greater than 50% in coordination of care (as documented) at patient's floor/unit and/or counseling patient: Coding Level of Care Code 56653 Subseq Hosp Care Lvl 2 Diagnoses Weakness R53.1 Status post lumbar spine operative procedure for decompression of spinal cord Z98.890 Acute UTI N39.0 Abdominal pain R10.30 Abdominal location: lower abdomen, unspecified Hypertension I10 Hypertension type: essential hypertension Pulmonary hypertension I27.20 Multiple pulmonary nodules R91.8 COPD (chronic obstructive pulmonary disease) J44.9 Hypokalemia E87.6 Cirrhosis K74.60 Anxiety and depression F41.9; F32.9 (1) Abdominal pain Abdominal location: lower abdomen, unspecified Qualified Code(s): R10.30 - Lower abdominal pain, unspecified (2) Hypertension Hypertension type: essential hypertension Qualified Code(s): I10 - Essential (primary) hypertension
[2020-04-26] MEDS: amLODIPine BESYLATE 5 MG TAB PO SCH (09:28)
[2020-04-26] MEDS: LIDOCAINE 5% 1 PATCH TD SCH (09:28)
[2020-04-26] MEDS: CHOLECALCIFEROL 1,000 UNITS 25 MCG TAB PO SCH (09:28)
[2020-04-26] MEDS: BACLOFEN 10 MG TAB PO PRN (12:18)
--- NOTE | 2020-04-26 13:39 | Orthopedic Progress Note ---
Date of Service April 26, 2020 Assessment & Plan (1) Status post lumbar spine operative procedure for decompression of spinal cord: Admission and Anticipated Discharge Date Admission Date: April 23, 2020 At this time she is making steady improvements. She clearly is a candidate for rehab in light of her marked strength deficits affecting left lower extremity. Hopefully be a candidate for rehab the next day or so. Subjective Patient feels her back pain is well controlled. She has occasional left leg symptoms with ambulation but is very comfortable at rest. Denies any nausea or vomiting denies any radicular pain. Physical Exam Physical Exam: On exam she does continue to demonstrate some modest improveme nt of her left quadriceps function. She is now comfortably dorothy against gravity with her left quadriceps. Plantar flexion dorsiflexion intact. Sensory intact. Appears comfortable. Results & Data ([facility]) Vital Signs (Past 12 Hours) Vital Signs Temp Pulse Resp BP Pulse Ox 04/26/20 07:20 37.0 C 86 18 156/85 H 93
[2020-04-27 06:55] LABS: Hematocrit (blood only) 33.1 % (37-47); Hemoglobin 10.9 g/dL (12.0-16.0); Mean Corpuscular Hemoglobin 30.4 pg (25-34); Mean Corpuscular Hgb Conc 32.9 g/dL (32-36); Mean Corpuscular Volume 92.5 fL (80-100); Mean Platelet Volume 8.7 fL (7.4-10.4); Platelet Count 322 K/uL (130-400); RDW Coefficient of Variation 15.5 % (11.5-14.5); RDW Standard Deviation 52.3 fL (36.4-46.3); Red Blood Count 3.58 M/uL (4.2-5.4); White Blood Count 6.57 K/uL (4.8-10.8)
[2020-04-27 06:59] LABS: Albumin Level 2.3 gm/dl (3.4-5.0); BUN Creatinine Ratio 17.6 (10-20); Calcium 8.9 mg/dl (8.5-10.1); Creatinine Clr Calc Pharmacy 62.5 ml/min; Est GFR (African American) 85.1; Est GFR (Non-African American) 73.4; Potassium 3.8 mmol/L (3.5-5.1)
[2020-04-27 07:09] LABS: Albumin Globulin Ratio 0.8 (0.9-2); Bilirubin,Total 0.5 mg/dl (0.2-1); C Reactive Protein 0.81 mg/dl (0-0.29); Globulin 2.8 gm/dl (2.5-4.0); Thyroid Stimulating Hormone 0.535 uIu/ml (0.300-4.500); Total Protein 5.1 gm/dl (6.4-8.2)
[2020-04-27] MEDS: FLUTICASONE/VILANTEROL 100/25MCG 14 PUFFS/INHALER INH SCH (09:52)
[2020-04-27] MEDS: UMECLIDINIUM BROMIDE 62.5MCG/BLISTER 7 PUFFS/INHALER INH SCH (09:53)
[2020-04-27] MEDS: LIDOCAINE 5% 1 PATCH TD SCH (09:54)
[2020-04-27] MEDS: DULoxetine HCL 30 MG CAP PO SCH (09:55)
[2020-04-27] MEDS: busPIRone 15 MG TAB PO SCH ×2 (09:55→20:31)
[2020-04-27] MEDS: GABAPENTIN 300 MG CAP PO SCH ×3 (09:55→20:31)
[2020-04-27] MEDS: CHOLECALCIFEROL 1,000 UNITS 25 MCG TAB PO SCH (09:55)
[2020-04-27] MEDS: amLODIPine BESYLATE 5 MG TAB PO SCH (09:56)
[2020-04-27] MEDS: DULoxetine HCL 60 MG CAP PO SCH (09:56)
[2020-04-27] MEDS: PANTOprazole 40 MG TAB PO SCH (09:56)
[2020-04-27] MEDS: HEPARIN SOD 5,000 UNIT/0.5 ML VIAL SQ SCH ×2 (09:57→20:31)
[2020-04-27] MEDS: bisacodyL 5 MG TABEC PO SCH (10:01)
[2020-04-27] MEDS: POLYETHYLENE (MIRALAX) 17 GM PACK PO SCH (10:01)
[2020-04-27] MEDS: ACETAMINOPHEN 325 MG TAB PO PRN (10:03)
[2020-04-27 11:51] LABS: Hepatitis A Antibody IgM NON-REACTIVE (NON-REACTIVE); Hepatitis B Core Antibody IgM NON-REACTIVE (NON-REACTIVE)
[2020-04-27] MEDS: BACLOFEN 10 MG TAB PO PRN (12:52)
--- NOTE | 2020-04-27 14:19 | Hospitalist Progress Note ---
Date of Service April 27, 2020 Assessment & Plan (1) Weakness: * S/p lumbar decompression and fusion with Dr. Guaman on 04/04/2020. * Dr. Guaman following - Lumbar MRI on 04/15 showed small intracanalicular fluid collection within the posterior aspect of the canal at the L5 level with mild to moderate mass effect upon the thecal sac. * During last admit pt was seen with Dr. Guaman on 04/17 - Feels spinal surgery is stable and encourages PT/OT (she did not want rehab initially but is now a greeable) * Was then admitted subsequently for suspected diverticulitis requiring hospitalization and contributing further to deconditioning and had a fall at home with subsequent worsening weakness and increased pain that prompted 3rd admission since March and continued deconditioning * Blood cultures NGTD * Lyme negative * Procal negative * CK 72 * AM Cortisol wnl * B12 wnl * TSH wnl * CXR without acute process * Urine without infection, FINAL * Has not been on abx during admission and WBC wnl and remains afebrile Repeat MRI during this admission with: * 1. Interval progression of the abnormal epidural fluid collection from T12 through L5 which results in moderate mass effect along the thecal sac. This is concerning for an epidural hematoma or abscess. Surgical consultation advised. * 2. Postoperative changes consistent with L3-S1 posterior decompression and fusion. The metallic artifact results in suboptimal evaluation within the central canal and adjacent soft tissues. * 3. Moderate central canal narrowing at L1-L2 and L2-L3, unchanged. * 4. Stable subcutaneous fluid collection and edema within the lumbar region. T his favors a postoperative seroma. Discussed with Dr. Guaman (on consult) -- feels no evidence clinically for abscess or need for surgery at this time. Recommending rehab at discharge to improve strength/function * CM following * Continue pain control with morphine prn, oxycodone prn * --> Added lidocaine patch and baclofen prn on 04/25 for muscle spasms (hx IT band issues and could be exacerbated) -- patient states benefit and we will continue these at discharge with daily monitoring by MD at [facility] to ensure pain controlled for continued rehab * US Doppler with small popliteal cyst which could also exacerbate issues, but only mildly * ESR 31 (no prior), CRP 0.86 (was Apr 15) --> ESR now wnl, CRP 0.81 * Remains afebrile, WBC wnl at 6.5k * Plans for pre-peer to peer this afternoon for hopeful discharge to [facility] (never received call -- insurance closed at 5pm and will attempt again tomorrow) * Patient has weakness and repeated hospitalization for diverticulitis with short rehab stay that was previously not helpful. * Re-presented (lives alone) after a fall and subsequent increase in pain requiring pain control and additional agents to achieve pain relief. * Given sac on spine on MRI, will need continued monitoring and should ideally be seen daily by a physician * PT/OT evals while inpatient with recommendations for short acute rehab at discharge * Ambulating 35 feet with RW and CGA with occasional minimum assist of 1 -- given that she lives alone and had repeat fall prior to admission, I feel she is unsafe for discharge home and requires level of care such as [facility] so that provider is rounding on her daily to ensure pain control and continued monitoring so that she is able to participate in therapy and will be safe for discharge from [facility] back to home. * Patient really should not go to a lower level of care at discharge as she will need continued positive re-enforcement and intensive therapy to return home safely. Continued complaints of left hip pain and will obtain Xray this evening focusing on L hip/pelvis given recent fall [employer] (2) Status post lumbar spine operative procedure for decompression of spinal cord: see above (3) Acute UTI: * Hx of such, 04/14 had UTI growing out enterococcus faecalis. Repeat UA on admission today with trace nitrate, esterase and possible considering having indwelling Sibley during last admission vs not completely clearing UTI. She is currently asymptomatic. * Repeat UCx sent, follow for sensitivity and specificity --> FINAL NO GROWTH (4) Abdominal pain: * During most recent admission was on ceftriaxone/flagyl for mild diverticulitis and finished recent course as an outpatient. * No abdominal pain or diarrhea noted at this time * Continue to monitor (5) Hypertension: * Continue amlodipine but will increase to 10mg daily (continue to utilize semaj hose to prevent swelling) -- BP 135/85 this AM, currently 117/75 * Consider outpatient sleep study for CPAP as well -- discussed with patient and she is to utilize O2 HS and with napping for now * Discussed with patient and she seems agreeable for follow up sleep study but may decide not to utilize CPAP if unable to tolerate * Previously on spironolactone which was discontinued due to hyperkalemia and most recent admission lisinopril discontinued for KWAME * BP improved on increased amlodipine * Continue to monitor (6) Pulmonary hypertension: * Presumed type II-III * On Tp ne pm spiriva and sympicort daily for maintenance and atrovent/xopenex nebs Q8 prn. * Last echo from 11/09/18 reviewed showing elevated right ventricular systolic pressure at 30-40 mmHG - not confirmed with a R heart cath. * Has O2 prn at home but uses intermittently * Overnight pulse ox with sats dropping to 69% * Discussed likely benefit from CPAP and will need formal sleep study outpatient but unlikely that patient will agree to anything further than nasal cannula at this time * Asked nursing to please encourage O2 when sleeping/napping -- patient has refused on previous evenings but did wear last night and does appear to have more energy today and has utilized with napping today (7) Multiple pulmonary nodules: * Follow up per outpatient for routine CT imaging noted on 2019 -- plans for repeat screening CT in July 2020 per most recent note from Dr. Galeano outpatient * Hx 40pack year smoking history and occasional use and has history of breast ca s/p lumpectomy and radiation * --> At that time patient wanted to think about it and decide in further about having screening done * Given elevated alk phos (although likely liver in origin and no blastic/lytic lesions seen on recent imaging, will check GGT w AM labs) --> would consider chest imaging/lung ca as cause for recent weakness if warranted vs continuing outpatient surveillance (8) COPD (chronic obstructive pulmonary disease): * Has supplemental O2 2 L for PRN use, pt reports she is not sure when she is supposed to wear it other than "when I feel like it." * Titrate O2 88-92 %, currently 91% on 2L but napping * Continue home inhalers * See above -- O2 HS and while napping with outpatient follow up (9) Hypokalemia: * RESOLVED (10) Cirrhosis: * Completed RUQ US for elevated alk phos and anorexia on admission/decreased appetite [employer]UP[employer]ER[employer] DIRECTOR to r/o smoldering GB infection. No evidence of acute dong or ductal dilatation but did note cirrhotic liver not previously noted on prior abdominal imaging * Alk phos elevation, likely due to liver disease * Hepatitis panel negative. * INR wnl * Ammonia <10 * Would rec f/u outpatient for continued monitoring * Avoid morphine (patient has not taken since the ) * Trend labs (11) Anxiety and depression: * Continue BuSpar, Cymbalta * Would recommend counseling upon discharge . can also discuss increasing medications (previous admission 2018 with increase in buspar) * Likely some component of repeat hospitalizations and back pain issues * No need for inpatient eval at this time DVT ppx: teds, SCDs heparin subq initially and then held for possible OR -- resumed 04/25 as no plans for surgery CODE: FULL Dispo: PT/OT with recommendations for rehab at discharge, awaiting call from insurance for P2P for hopeful d/c to [facility] (hopefully tomorrow as did not get a call again today and they were still reviewing per call at 430pm) Admission and Anticipated Discharge Date Admission Date: April 23, 2020 Subjective Patient evaluated this morning. Up in chair eating lunch. Rice is dry but chicken acceptable. Pain was increased this morning and she was unable to participate in therapy to her left hip/thigh. Received tylenol and is appearing comfortable but still with pain, worse with ambulation. Discussed with nursing and will get a dose of baclofen prior to PT/OT coming back this afternoon so that she is able to participate with better pain control. No fever, chills, chest pain, shortness of breath, abdominal pain. Has been ambulating but requiring assistance at times for safety. Still without call for [id number] at 5pm and will remain inpatient until review completed. Review of Systems Review of Systems: All systems reviewed & are unremarkable except as noted in HPI & below Physical Exam Physical Exam: General: awake, alert, no apparent distress, + obese , eating lunch appearing comfortable upright in bed Head: Normocephalic, atraumatic ENT: PERRL, EOMI, no pharyngeal exudate, mucous membranes moist Chest: Clear to auscultation, on room air, no adventitious breath sounds Cardiac: Regular rate and rhythm, no murmur, no JVD, normal peripheral pulses, good capillary refill Abdominal: NABS x 4 quadrants, soft, nondistended, nontender to palpation, no rebound or guarding MSK: surgical incision is healing well, intact, no surrounding erythema or edema, no purulent material expressed from region. no point tenderness over the spine. + tenderness in left lumbar region which extends to the left gluteal region. able to flex/extend at the knees. decreased at the hips due to increased pain (L>R) but does have improved strength full AROM LLE however does have weakness compared to RLE, painful NVI. pulses palpable bilaterally Extremities: Normal inspection, no peripheral edema or erythema, calfs nontender to palpation Psych: AOX3 Neuro: DTRs intact, no face palsy, no dysarthria, EOMI Results & Data Results & Data ([facility]) Vital Signs (Past 12 Hours) Vital Signs Temp Pulse Resp BP Pulse Ox 04/27/20 07:21 36.7 C 94 H 18 135/85 97 Laboratory Results 04/27/20 04/27/20 04/27/20 Range/Units Unknown 06:13 06:13 WBC 6.57 (4.8-10.8) K/uL RBC 3.58 L (4.2-5.4) M/uL Hgb 10.9 L (12.0-16.0) g/dL Hct 33.1 L (37-47) % MCV 92.5 (80-100) fL MCH 30.4 (25-34) pg MCHC 32.9 (32-36) g/dL RDW Std Deviation 52.3 H (36.4-46.3) fL RDW Coeff of Hipolito 15.5 H (11.5-14.5) % Plt Count 322 (130-400) K/uL MPV 8.7 (7.4-10.4) fL ESR 21 (0-21) mm/hr Sodium (136-145) mmol/L Potassium (3.5-5.1) mmol/L Chloride (98-107) mmol/L Carbon Dioxide (21-32) mmol/L Anion Gap (3-11) BUN (7-18) mg/dl Creatinine (0.6-1.2) mg/dl Est Cr Clr Drug Dosing ml/min Est GFR ( Amer) Est GFR (Non-Af Amer) BUN/Creatinine Ratio (10-20) Glucose (70-99) mg/dl Calcium (8.5-10.1) mg/dl Total Bilirubin (0.2-1) mg/dl AST (15-37) U/L ALT (12-78) U/L Alkaline Phosphatase (45-117) U/L C-Reactive Protein (0-0.29) mg/dl Total Protein (6.4-8.2) gm/dl Albumin (3.4-5.0) gm/dl Globulin (2.5-4.0) gm/dl Albumin/Globulin Ratio (0.9-2) Vitamin B1 TSH (0.300-4.500) uIu/ml Stool Occult Bld Scrn Negative (Negative) Hepatitis A IgM Ab (NON-REACTIVE) Hep B Core IgM Ab (NON-REACTIVE) 04/27/20 04/27/20 04/25/20 Range/Units 06:13 06:13 15:38 WBC (4.8-10.8) K/uL RBC (4.2-5.4) M/uL Hgb (12.0-16.0) g/dL Hct (37-47) % MCV (80-100) fL MCH (25-34) pg MCHC (32-36) g/dL RDW Std Deviation (36.4-46.3) fL RDW Coeff of Hipolito (11.5-14.5) % Plt Count (130-400) K/uL MPV (7.4-10.4) fL ESR (0-21) mm/hr Sodium 143 (136-145) mmol/L Potassium 3.8 (3.5-5.1) mmol/L Chloride 113 H (98-107) mmol/L Carbon Dioxide 26 (21-32) mmol/L Anion Gap 4.0 (3-11) BUN 14 (7-18) mg/dl Creatinine 0.77 (0.6-1.2) mg/dl Est Cr Clr Drug Dosing 62.5 ml/min Est GFR ( Amer) 85.1 Est GFR (Non-Af Amer) 73.4 BUN/Creatinine Ratio 17.6 (10-20) Glucose 106 H (70-99) mg/dl Calcium 8.9 (8.5-10.1) mg/dl Total Bilirubin 0.5 (0.2-1) mg/dl AST 14 L (15-37) U/L ALT 24 (12-78) U/L Alkaline Phosphatase 228 H (45-117) U/L C-Reactive Protein 0.81 H (0-0.29) mg/dl Total Protein 5.1 L (6.4-8.2) gm/dl Albumin 2.3 L (3.4-5.0) gm/dl Globulin 2.8 (2.5-4.0) gm/dl Albumin/Globulin Ratio 0.8 L (0.9-2) Vitamin B1 Pending TSH 0.535 (0.300-4.500) uIu/ml Stool Occult Bld Scrn (Negative) Hepatitis A IgM Ab NON-REACTIVE (NON-REACTIVE) Hep B Core IgM Ab NON-REACTIVE (NON-REACTIVE) Diagnostic Findings XR hip LT 2V w pelvis CLINICAL HISTORY: Left hip pain status post trauma COMPARISON: None. DISCUSSION: There are postsurgical changes of a lumbar spinal fusion. No acute fractures are visualized. There is no dislocation. The joint spaces of each hip appear relatively well preserved for age. IMPRESSION: No fractures or dislocations identified. PG Care Time/CCT Total # of Minutes Spent Total Time Spent with Patient: Total time spent is greater than 50% in coordination of care (as documented) at patient's floor/unit and/or counseling patient: Coding Level of Care Code 52707 Subseq Hosp Care Lvl 3 Diagnoses Weakness R53.1 Status post lumbar spine operative procedure for decompression of spinal cord Z98.890 Acute UTI N39.0 Abdominal pain R10.30 Abdominal location: lower abdomen, unspecified Hypertension I10 Hypertension type: essential hypertension Pulmonary hypertension I27.20 Multiple pulmonary nodules R91.8 COPD (chronic obstructive pulmonary disease) J44.9 Hypokalemia E87.6 Cirrhosis K74.60 Anxiety and depression F41.9; F32.9 (1) Abdominal pain Abdominal location: lower abdomen, unspecified Qualified Code(s): R10.30 - Lower abdominal pain, unspecified (2) Hypertension Hypertension type: essential hypertension Qualified Code(s): I10 - Essential (primary) hypertension
[2020-04-27] MEDS: traMADol HCL 50 MG TABLET PO PRN (15:17)
[2020-04-27] MEDS: oxyCODONE HCL IR 5 MG TAB (IMMEDIATE RELEASE) PO PRN ×2 (17:05→22:53)
--- NOTE | 2020-04-27 17:55 | XRay Report ---
XR hip LT 2V w pelvis CLINICAL HISTORY: Left hip pain status post trauma COMPARISON: None. DISCUSSION: There are postsurgical changes of a lumbar spinal fusion. No acute fractures are visualiz ed. There is no dislocation. The joint spaces of each hip appear relatively well preserved for age. IMPRESSION: No fractures or dislocations identified. ACT 112: Negative or not required by law. Electronically signed by: Zi Mcleod M.D. 04/27/2020 5:53 PM
[2020-04-27] MEDS: MELATONIN 3 MG TAB PO PRN (22:53)
[2020-04-28 06:53] LABS: Alanine Aminotransferase 20 U/L (12-78); Albumin Level 2.1 gm/dl (3.4-5.0); Aspartate Aminotransferase 11 U/L (15-37); BUN Creatinine Ratio 25.1 (10-20); Bilirubin Direct < 0.1 mg/dl (0-0.2); Bilirubin,Total 0.3 mg/dl (0.2-1); Blood Urea Nitrogen 15 mg/dl (7-18); Calcium 8.6 mg/dl (8.5-10.1); Carbon Dioxide 28 mmol/L (21-32); Chloride 110 mmol/L (98-107); Creatinine Clr Calc Pharmacy 80.2 ml/min; Est GFR (African American) 100.5; Est GFR (Non-African American) 86.7; Glucose 90 mg/dl (70-99); Potassium 3.6 mmol/L (3.5-5.1); Sodium 142 mmol/L (136-145)
[2020-04-28 06:54] LABS: Alkaline Phosphatase 201 U/L (45-117)
[2020-04-28] MEDS: FLUTICASONE/VILANTEROL 100/25MCG 14 PUFFS/INHALER INH SCH (09:03)
[2020-04-28] MEDS: GABAPENTIN 300 MG CAP PO SCH ×3 (09:03→21:01)
[2020-04-28] MEDS: UMECLIDINIUM BROMIDE 62.5MCG/BLISTER 7 PUFFS/INHALER INH SCH (09:03)
[2020-04-28] MEDS: CHOLECALCIFEROL 1,000 UNITS 25 MCG TAB PO SCH (09:03)
[2020-04-28] MEDS: amLODIPine BESYLATE 5 MG TAB PO SCH (09:04)
[2020-04-28] MEDS: busPIRone 15 MG TAB PO SCH ×2 (09:04→21:02)
[2020-04-28] MEDS: LIDOCAINE 5% 1 PATCH TD SCH (09:04)
[2020-04-28] MEDS: PANTOprazole 40 MG TAB PO SCH (09:04)
[2020-04-28] MEDS: DULoxetine HCL 60 MG CAP PO SCH (09:04)
[2020-04-28] MEDS: DULoxetine HCL 30 MG CAP PO SCH (09:04)
[2020-04-28] MEDS: POLYETHYLENE (MIRALAX) 17 GM PACK PO SCH (09:07)
[2020-04-28] MEDS: HEPARIN SOD 5,000 UNIT/0.5 ML VIAL SQ SCH ×2 (09:08→21:02)
[2020-04-28] MEDS: bisacodyL 5 MG TABEC PO SCH (09:09)
--- NOTE | 2020-04-28 09:22 | Hospitalist Progress Note ---
Date of Service April 28, 2020 Assessment & Plan (1) Weakness: * S/p lumbar decompression and fusion with Dr. Guaman on 04/04/2020. * Dr. Guaman following - Lumbar MRI on 04/15 showed small intracanalicular fluid collection within the posterior aspect of the canal at the L5 level with mild to moderate mass effect upon the thecal sac. * During last admit pt was seen with Dr. Guaman on 04/17 - Feels spinal surgery is stable and encourages PT/OT (she did not want rehab initially but is now a greeable) * Was then admitted subsequently for suspected diverticulitis requiring hospitalization and contributing further to deconditioning and had a fall at home with subsequent worsening weakness and increased pain that prompted 3rd admission since March and continued deconditioning * Blood cultures NGTD * Lyme negative * Procal negative * CK 72 * AM Cortisol wnl * B12 wnl * TSH wnl * CXR without acute process * Urine without infection, FINAL * Xray L hip w/o fracture * Has not been on abx during admission and WBC wnl and remains afebrile Repeat MRI during this admission with: * 1. Interval progression of the abnormal epidural fluid collection from T12 through L5 which results in moderate mass effect along the thecal sac. This is concerning for an epidural hematoma or abscess. Surgical consultation advised. * 2. Postoperative changes consistent with L3-S1 posterior decompression and fusion. The metallic artifact results in suboptimal evaluation within the central canal and adjacent soft tissues. * 3. Moderate central canal narrowing at L1-L2 and L2-L3, unchanged. * 4. Stable subcutaneous fluid collection and edema within the lumbar region. This favors a postoperative seroma. Discussed with Dr. Guaman (on consult) -- feels no evidence clinically for abscess or need for surgery at this time. Recommending rehab at discharge to improve strength/function * CM following * Continue pain control with morphine prn, oxycodone prn * --> Added lidocaine patch and baclofen prn on 04/25 for muscle spasms (hx IT band issues and could be exacerbated) -- patient states benefit and we will continue these at discharge with daily monitoring by MD at [facility] to ensure pain controlled for continued rehab * US Doppler with small popliteal cyst which could also exacerbate issues, but only mildly * ESR 31 (no prior), CRP 0.86 (was 14 Apr 15) --> ESR now wnl, CRP 0.81 * Remains afebrile, WBC wnl at 6.5k PEER TO PEER DONE AND DENIED -- family to APPEAL * Patient has weakness and repeated hospitalization for diverticulitis with short rehab stay that was previously not helpful. * Re-presented (lives alone) after a fall and subsequent increase in pain requiring pain control and additional agents to achieve pain relief. * Given sac on spine on MRI, will need continued monitoring and should ideally be seen daily by a physician * PT/OT tami while inpatient with recommendations for short acute rehab at discharge * Ambulating 35 feet with RW and CGA with occasional minimum assist of 1 -- given that she lives alone and had repeat fall prior to admission, I feel she is unsafe for discharge home and requires level of care such as [facility] so that provider is rounding on her daily to ensure pain control and continued monitoring so that she is able to participate in therapy and will be safe for discharge from [facility] back to home. * Patient really should not go to a lower level of care at discharge as she will need continued positive re-enforcement and intensive therapy to return home safely. (2) Status post lumbar spine operative procedure for decompression of spinal cord: see above (3) Acute UTI: * Hx of such, 04/14 had UTI growing out enterococcus faecalis. Repeat UA on admission today with trace nitrate, esterase and possible considering having indwelling Sibley during last admission vs not completely clearing UTI. She is currently asymptomatic. * Repeat UCx sent, follow for sensitivity and specificity --> FINAL NO GROWTH (4) Abdominal pain: * During most recent admission was on ceftriaxone/flagyl for mild diverticulitis and finished recent course as an outpatient. * No abdominal pain or diarrhea noted at this time * Continue to monitor (5) Hypertension: * Continue amlodipine but did increase to 10mg daily (continue to utilize semaj hose to prevent swelling) -- BP improved, currently 130/85 * Consider outpatient sleep study for CPAP as well -- discussed with patient and she is to utilize O2 HS and with napping for now * Discussed with patient and she seems agreeable for follow up sleep study but may decide not to utilize CPAP if unable to tolerate * Previously on spironolactone which was discontinued due to hyperkalemia and most recent admission lisinopril discontinued for KWAME * Continue to monitor (6) Pulmonary hypertension: * Presumed type II-III * On Tp ne pm spiriva and sympicort daily for maintenance and atrovent/xopenex nebs Q8 prn. * Last echo from 11/09/18 reviewed showing elevated right ventricular systolic pressure at 30-40 mmHG - not confirmed with a R heart cath. * Has O2 prn at home but uses intermittently * Overnight pulse ox with sats dropping to 69% * Discussed likely benefit from CPAP and will need formal sleep study outpatient but unlikely that patient will agree to anything further than nasal cannula at this time * Asked nursing to please encourage O2 when sleeping/napping -- patient has refused on previous evenings but did wear last night again and does appear to have more energy today and has utilized with napping yesterday (7) Multiple pulmonary nodules: * Follow up per outpatient for routine CT imaging noted on 2019 -- plans for repeat screening CT in July 2020 per most recent note from Dr. Galeano outpatient * Hx 40pack year smoking history and occasional use and has history of breast ca s/p lumpectomy and radiation * --> At that time patient wanted to think about it and decide in further about having screening done * Given elevated alk phos (although likely liver in origin and no blastic/lytic lesions seen on recent imaging, will check GGT w AM labs) --> would consider chest imaging/lung ca as cause for recent weakness if warranted vs continuing outpatient surveillance (8) COPD (chronic obstructive pulmonary disease): * Has supplemental O2 2 L for PRN use, pt reports she is not sure when she is supposed to wear it other than "when I feel like it." * Titrate O2 88-92 %, currently 90% on RA * Continue home inhalers * See above -- O2 HS and while napping with outpatient follow up (9) Hypokalemia: * RESOLVED (10) Cirrhosis: * Completed RUQ US for elevated alk phos and anorexia on admission/decreased appetite [employer] to r/o smoldering GB infection. No evidence of acute dong or ductal dilatation but did note cirrhotic liver not previously noted on prior abdominal imaging * Alk phos elevation, likely due to liver disease * Hepatitis panel negative. * INR wnl * Ammonia <10 * Would rec f/u outpatient for continued monitoring * Avoid morphine (patient has not taken since the ) * Trend labs (11) Anxiety and depression: * Continue BuSpar, Cymbaltravis * Would recommend counseling upon discharge . can also discuss increasing medications (previous admission 2018 with increase in buspar) * No need for inpatient eval at this time * If continues to be inpatient through next week, consider consulting psych for further titration of medications vs adding additional agents given increased frustrations with repeat hospitalizations and issues with pain DVT ppx: teds, SCDs heparin subq initially and then held for possible OR -- resumed 04/25 as no plans for surgery CODE: FULL Dispo: PT/OT with recommendations for rehab at discharge, family to appeal denial for [facility] If still not approved, SNF not to have bed until next Thursday/ Admission and Anticipated Discharge Date Admission Date: April 23, 2020 Subjective Patient evaluated this morning. Feeling better. Pain better controlled. Got some sleep last night. To continue to work with therapy inpatient while awaiting insurance for [facility]. Completed [id number] this morning with denial for [facility] and would rec SNF. CM to contact sharath Melgoza about appeal as SNF bed not available until later next week and patient really would benefit from inpatient intensive therapy. Eating/drinking without issues. Moved her bowels. Pain to her L buttock/hip as primary issue. Xray last evening without fracture. No fever, chills, chest pain, shortness of breath reported. She is feeling a little bit more down today about waiting in the hospital as she states she feels like she has been hung up here since the beginning of the year and just wants to get stronger for return home. Review of Systems Review of Systems: All systems reviewed & are unremarkable except as noted in HPI & below Physical Exam Physical Exam: General: awake, alert, no apparent distress, + obese , eating lunch appearing comfortable upright in bed Head: Normocephalic, atraumatic ENT: PERRL, EOMI, no pharyngeal exudate, mucous membranes moist Chest: Clear to auscultation, on room air, no adventitious breath sounds Cardiac: Regular rate and rhythm, no murmur, no JVD, normal peripheral pulses, good capillary refill Abdominal: NABS x 4 quadrants, soft, nondistended, nontender to palpation, no rebound or guarding MSK: surgical incision is healing well, intact, no surrounding erythema or edema, no purulent material expressed from region. no point tenderness over the spine. + tenderness in left lumbar region which extends to the left gluteal region. able to flex/extend at the knees. decreased at the hips due to increased pain (L>R) but does have improved strength full AROM LLE however does have weakness compared to RLE, painful NVI. pulses palpable bilaterally Extremities: Normal inspection, no peripheral edema or erythema, calfs nontender to palpation Psych: AOX3, euthymic affect however does voice increased frustrations with continuing to be in the hospital while awaiting rehab Neuro: DTRs intact, no face palsy, no dysarthria, EOMI Results & Data Results & Data ([facility]) Vital Signs (Past 12 Hours) Vital Signs Temp Pulse Resp BP Pulse Ox 04/28/20 07:35 36.9 C 84 18 130/85 90 04/27/20 23:29 36.8 C 86 18 121/76 94 Laboratory Results 04/28/20 04/28/20 04/27/20 Range/Units 05:26 05:26 Unknown Sodium 142 (136-145) mmol/L Potassium 3.6 (3.5-5.1) mmol/L Chloride 110 H (98-107) mmol/L Carbon Dioxide 28 (21-32) mmol/L Anion Gap 4.0 (3-11) BUN 15 (7-18) mg/dl Creatinine 0.60 (0.6-1.2) mg/dl Est Cr Clr Drug Dosing 80.2 ml/min Est GFR ( Amer) 100.5 Est GFR (Non-Af Amer) 86.7 BUN/Creatinine Ratio 25.1 H (10-20) Glucose 90 (70-99) mg/dl Calcium 8.6 (8.5-10.1) mg/dl Total Bilirubin 0.3 (0.2-1) mg/dl Direct Bilirubin < 0.1 (0-0.2) mg/dl GGT Pending AST 11 L (15-37) U/L ALT 20 (12-78) U/L Alkaline Phosphatase 201 H (45-117) U/L Total Protein 5.0 L (6.4-8.2) gm/dl Albumin 2.1 L (3.4-5.0) gm/dl Stool Occult Bld Scrn Negative (Negative) Hepatitis A IgM Ab (NON-REACTIVE) Hep B Core IgM Ab (NON-REACTIVE) 04/25/20 Range/Units 15:38 Sodium (136-145) mmol/L Potassium (3.5-5.1) mmol/L Chloride (98-107) mmol/L Carbon Dioxide (21-32) mmol/L Anion Gap (3-11) BUN (7-18) mg/dl Creatinine (0.6-1.2) mg/dl Est Cr Clr Drug Dosing ml/min Est GFR ( Amer) Est GFR (Non-Af Amer) BUN/Creatinine Ratio (10-20) Glucose (70-99) mg/dl Calcium (8.5-10.1) mg/dl Total Bilirubin (0.2-1) mg/dl Direct Bilirubin (0-0.2) mg/dl GGT AST (15-37) U/L ALT (12-78) U/L Alkaline Phosphatase (45-117) U/L Total Protein (6.4-8.2) gm/dl Albumin (3.4-5.0) gm/dl Stool Occult Bld Scrn (Negative) Hepatitis A IgM Ab NON-REACTIVE (NON-REACTIVE) Hep B Core IgM Ab NON-REACTIVE (NON-REACTIVE) PG Care Time/CCT Total # of Minutes Spent Total Time Spent with Patient: Total time spent is greater than 50% in coordination of care (as documented) at patient's floor/unit and/or counseling patient: Coding Level of Care Code 31016 Subseq Hosp Care Lvl 2 Diagnoses Weakness R53.1 Status post lumbar spine operative procedure for decompression of spinal cord Z98.890 Acute UTI N39.0 Abdominal pain R10.30 Abdominal location: lower abdomen, unspecified Hypertension I10 Hypertension type: essential hypertension Pulmonary hypertension I27.20 Multiple pulmonary nodules R91.8 COPD (chronic obstructive pulmonary disease) J44.9 Hypokalemia E87.6 Cirrhosis K74.60 Anxiety and depression F41.9; F32.9 (1) Abdominal pain Abdominal location: lower abdomen, unspecified Qualified Code(s): R10.30 - Lower abdominal pain, unspecified (2) Hypertension Hypertension type: essential hypertension Qualified Code(s): I10 - Essential (primary) hypertension
--- NOTE | 2020-04-28 11:41 | Orthopedic Progress Note ---
Date of Service April 28, 2020 Assessment & Plan (1) Status post lumbar spine operative procedure for decompression of spinal cord: Admission and Anticipated Discharge Date Admission Date: April 23, 2020 This time she is to continue physical therapy as tolerated. She clearly is an ideal candidate for rehabilitation. We are awaiting approval from her insurance company. Subjective Patient's back pain is controlled leg symptoms improved. Denies any numbness or tingling into the lower extremities. Physical Exam Physical Exam: On exam she is ambulating with a walker. She does exhibit increased strength testing the left quadricep. Incisions clean dry intact. No erythema no swelling. Results & Data ([facility]) Vital Signs (Past 12 Hours) Vital Signs Temp Pulse Resp BP Pulse Ox 04/28/20 07:35 36.9 C 84 18 130/85 90
[2020-04-28] MEDS: traMADol HCL 50 MG TABLET PO PRN (19:40)
[2020-04-28] MEDS: oxyCODONE HCL IR 5 MG TAB (IMMEDIATE RELEASE) PO PRN (21:01)
[2020-04-29] MEDS: FLUTICASONE/VILANTEROL 100/25MCG 14 PUFFS/INHALER INH SCH (09:37)
[2020-04-29] MEDS: busPIRone 15 MG TAB PO SCH ×2 (09:38→20:46)
[2020-04-29] MEDS: GABAPENTIN 300 MG CAP PO SCH ×3 (09:38→20:46)
[2020-04-29] MEDS: CHOLECALCIFEROL 1,000 UNITS 25 MCG TAB PO SCH (09:38)
[2020-04-29] MEDS: PANTOprazole 40 MG TAB PO SCH (09:39)
[2020-04-29] MEDS: amLODIPine BESYLATE 5 MG TAB PO SCH (09:39)
[2020-04-29] MEDS: LIDOCAINE 5% 1 PATCH TD SCH (09:40)
[2020-04-29] MEDS: DULoxetine HCL 60 MG CAP PO SCH (09:41)
[2020-04-29] MEDS: DULoxetine HCL 30 MG CAP PO SCH (09:41)
[2020-04-29] MEDS: UMECLIDINIUM BROMIDE 62.5MCG/BLISTER 7 PUFFS/INHALER INH SCH (09:42)
[2020-04-29] MEDS: oxyCODONE HCL IR 5 MG TAB (IMMEDIATE RELEASE) PO PRN (10:06)
[2020-04-29] MEDS: HEPARIN SOD 5,000 UNIT/0.5 ML VIAL SQ SCH ×2 (10:11→20:48)
[2020-04-29] MEDS: POLYETHYLENE (MIRALAX) 17 GM PACK PO SCH (10:11)
[2020-04-29] MEDS: bisacodyL 5 MG TABEC PO SCH (10:11)
[2020-04-29] MEDS: traMADol HCL 50 MG TABLET PO PRN (12:36)
--- NOTE | 2020-04-29 15:20 | Hospitalist Progress Note ---
Date of Service April 29, 2020 Assessment & Plan (1) Weakness: * S/p lumbar decompression and fusion with Dr. Guaman on 04/04/2020. * Dr. Guaman following - Lumbar MRI on 04/15 showed small intracanalicular fluid collection within the posterior aspect of the canal at the L5 level with mild to moderate mass effect upon the thecal sac. * During last admit pt was seen with Dr. Guaman on 04/17 - Feels spinal surgery is stable and encourages PT/OT (she did not want rehab initially but is now a greeable) * Was then admitted subsequently for suspected diverticulitis requiring hospitalization and contributing further to deconditioning and had a fall at home with subsequent worsening weakness and increased pain that prompted 3rd admission since March and continued deconditioning * Blood cultures NGTD * Lyme negative * Procal negative * CK 72 * AM Cortisol wnl * B12 wnl * TSH wnl * CXR without acute process * Urine without infection, FINAL * Xray L hip w/o fracture * Has not been on abx during admission and WBC wnl and remains afebrile Repeat MRI during this admission with: * 1. Interval progression of the abnormal epidural fluid collection from T12 through L5 which results in moderate mass effect along the thecal sac. This is concerning for an epidural hematoma or abscess. Surgical consultation advised. * 2. Postoperative changes consistent with L3-S1 posterior decompression and fusion. The metallic artifact results in suboptimal evaluation within the central canal and adjacent soft tissues. * 3. Moderate central canal narrowing at L1-L2 and L2-L3, unchanged. * 4. Stable subcutaneous fluid collection and edema within the lumbar region. This favors a postoperative seroma. Discussed with Dr. Guaman (on consult) -- feels no evidence clinically for abscess or need for surgery at this time. Recommending rehab at discharge to improve strength/function * CM following * Continue pain control with morphine prn, oxycodone prn * --> Added lidocaine patch and baclofen prn on 04/25 for muscle spasms (hx IT band issues and could be exacerbated) -- patient states benefit and we will continue these at discharge with daily monitoring by MD at [facility] to ensure pain controlled for continued rehab * US Doppler with small popliteal cyst which could also exacerbate issues, but only mildly * ESR 31 (no prior), CRP 0.86 (was 14 Apr 15) --> ESR now wnl, CRP 0.81 * Remains afebrile, WBC wnl at 6.5k No changes today. Will continue [id number] tomorrow. PEER TO PEER DONE AND DENIED -- family to APPEAL * Patient has weakness and repeated hospitalization for diverticulitis with short rehab stay that was previously not helpful. * Re-presented (lives alone) after a fall and subsequent increase in pain requiring pain control and additional agents to achieve pain relief. * Given sac on spine on MRI, will need continued monitoring and should ideally be seen daily by a physician * PT/OT evals while inpatient with recommendations for short acute rehab at discharge * Ambulating 35 feet with RW and CGA with occasional minimum assist of 1 -- given that she lives alone and had repeat fall prior to admission, I feel she is unsafe for discharge home and requires level of care such as [facility] so that provider is rounding on her daily to ensure pain control and continued monitoring so that she is able to participate in therapy and will be safe for discharge from [facility] back to home. * Patient really should not go to a lower level of care at discharge as she will need continued positive re-enforcement and intensive therapy to return home safely. (2) Status post lumbar spine operative procedure for decompression of spinal cord: see above (3) Acute UTI: * Hx of such, 04/14 had UTI growing out enterococcus faecalis. Repeat UA on admission today with trace nitrate, esterase and possible considering having indwelling Sibley during last admission vs not completely clearing UTI. She is currently asymptomatic. * Repeat UCx sent, follow for sensitivity and specificity --> FINAL NO GROWTH (4) Abdominal pain: * During most recent admission was on ceftriaxone/flagyl for mild diverti culitis and finished recent course as an outpatient. * No abdominal pain or diarrhea noted at this time * Continue to monitor (5) Hypertension: * Continue amlodipine but did increase to 10mg daily (continue to utilize semaj hose to prevent swelling) -- BP improved, currently 130/75 * Consider outpatient sleep study for CPAP as well -- discussed with patient and she is to utilize O2 HS and with napping for now * Discussed with patient and she seems agreeable for follow up sleep study but may decide not to utilize CPAP if unable to tolerate * Previously on spironolactone which was discontinued due to hyperkalemia and most recent admission lisinopril discontinued for KWAME * Continue to monitor (6) Pulmonary hypertension: * Presumed type II-III * On Tp ne pm spiriva and sympicort daily for maintenance and atrovent/xopenex nebs Q8 prn. * Last echo from 11/09/18 reviewed showing elevated right ventricular systolic pressure at 30-40 mmHG - not confirmed with a R heart cath. * Has O2 prn at home but uses intermittently * Overnight pulse ox with sats dropping to 69% * Discussed likely benefit from CPAP and will need formal sleep study outpatient but unlikely that patient will agree to anything further than nasal cannula at this time * Asked nursing to please encourage O2 when sleeping/napping (7) Multiple pulmonary nodules: * Follow up per outpatient for routine CT imaging noted on 2019 -- plans for repeat screening CT in July 2020 per most recent note from Dr. Galeano outpatient * Hx 40pack year smoking history and occasional use and has history of breast ca s/p lumpectomy and radiation * --> At that time patient wanted to think about it and decide in further about having screening done * Given elevated alk phos (although likely liver in origin and no blastic/lytic lesions seen on recent imaging, will check GGT w AM labs) --> would consider chest imaging/lung ca as cause for recent weakness if warranted vs continuing outpatient surveillance (8) COPD (chronic obstructive pulmonary disease): * Has supplemental O2 2 L for PRN use, pt reports she is not sure when she is supposed to wear it other than "when I feel like it." * Titrate O2 88-92 %, currently 90% on RA * Continue home inhalers * See above -- O2 HS and while napping with outpatient follow up (9) Cirrhosis: * Completed RUQ US for elevated alk phos and anorexia on admission/decreased appetite [employer] to r/o smoldering GB infection. No evidence of acute dong or ductal dilatation but did note cirrhotic liver not previously noted on prior abdominal imaging * Alk phos elevation, likely due to liver disease * Hepatitis panel negative. * INR wnl * Ammonia <10 * Would rec f/u outpatient for continued monitoring * Avoid morphine (patient has not taken since the ) * Trend labs (10) Anxiety and depression: * Continue BuSpar, Cymbalta * Would recommend counseling upon discharge . can also discuss increasing medications (previous admission 2019 with increase in buspar) * No need for inpatient eval at this time * If continues to be inpatient through next week, consider consulting psych for further titration of medications vs adding additional agents given increased frustrations with repeat hospitalizations and issues with pain Admission and Anticipated Discharge Date Admission Date: April 23, 2020 Subjective No issues today. Reports no fevers/chills, chest pain, shortness of breath, abdominal pain, nausea, or vomiting. Physical Exam Constitutional: WD/WN, vitals as above Eyes: EOM intact bilaterally; no conjunctival abnormality ENMT: external ear and nose normal, oropharynx normal Neck: trachea midline, no thyromegaly normal visual inspection Respiratory: normal respiratory effort, lungs clear to auscultation no respiratory distress Cardiovascular: RRR, no murmur, no edema Gastrointestinal (Abdomen): Inspection/Auscultation: abdomen normal to inspection; abdomen not distended Musculoskeletal: no cyanosis or clubbing, extremities motor strength 5/5 Skin: no rashes, warm and dry Neurologic: moves all extremities and awake Psychiatric: Orientation: alert, oriented to person and cooperative Results & Data Results & Data ([facility]) Vital Signs (Past 12 Hours) Vital Signs Temp Pulse Resp BP Pulse Ox 04/29/20 07:32 36.7 C 85 18 128/74 91 PG Care Time/CCT Total # of Minutes Spent Total Time Spent with Patient: Total time spent is greater than 50% in coordination of care (as documented) at patient's floor/unit and/or counseling patient: Coding Level of Care Code 85662 Subseq Hosp Care Lvl 2 Diagnoses Weakness R53.1 Status post lumbar spine operative procedure for decompression of spinal cord Z98.890 Acute UTI N39.0 Abdominal pain R10.30 Abdominal location: lower abdomen, unspecified Hypertension I10 Hypertension type: essential hypertension Pulmonary hypertension I27.20 Multiple pulmonary nodules R91.8 COPD (chronic obstructive pulmonary disease) J44.9 Cirrhosis K74.60 Anxiety and depression F41.9; F32.9 (1) Abdominal pain Abdominal location: lower abdomen, unspecified Qualified Code(s): R10.30 - Lower abdominal pain, unspecified (2) Hypertension Hypertension type: essential hypertension Qualified Code(s): I10 - Essential (primary) hypertension
[2020-04-30] MEDS: oxyCODONE HCL IR 5 MG TAB (IMMEDIATE RELEASE) PO PRN ×3 (07:27→20:56)
[2020-04-30] MEDS: GABAPENTIN 300 MG CAP PO SCH ×3 (08:14→20:58)
[2020-04-30] MEDS: FLUTICASONE/VILANTEROL 100/25MCG 14 PUFFS/INHALER INH SCH (08:14)
[2020-04-30] MEDS: amLODIPine BESYLATE 5 MG TAB PO SCH (08:15)
[2020-04-30] MEDS: HEPARIN SOD 5,000 UNIT/0.5 ML VIAL SQ SCH ×2 (08:16→20:58)
[2020-04-30] MEDS: CHOLECALCIFEROL 1,000 UNITS 25 MCG TAB PO SCH (08:17)
[2020-04-30] MEDS: DULoxetine HCL 30 MG CAP PO SCH (08:17)
[2020-04-30] MEDS: PANTOprazole 40 MG TAB PO SCH (08:18)
[2020-04-30] MEDS: LIDOCAINE 5% 1 PATCH TD SCH (08:19)
[2020-04-30] MEDS: POLYETHYLENE (MIRALAX) 17 GM PACK PO SCH (08:19)
[2020-04-30] MEDS: UMECLIDINIUM BROMIDE 62.5MCG/BLISTER 7 PUFFS/INHALER INH SCH (08:20)
[2020-04-30] MEDS: DULoxetine HCL 60 MG CAP PO SCH (08:21)
[2020-04-30] MEDS: busPIRone 15 MG TAB PO SCH ×2 (08:21→20:57)
[2020-04-30] MEDS: bisacodyL 5 MG TABEC PO SCH (08:27)
[2020-04-30] MEDS: traMADol HCL 50 MG TABLET PO PRN ×2 (11:12→18:45)
[2020-04-30] MEDS: ACETAMINOPHEN 325 MG TAB PO PRN ×2 (14:47→20:57)
--- NOTE | 2020-04-30 15:01 | Hospitalist Progress Note ---
Date of Service April 30, 2020 Assessment & Plan (1) Weakness: * S/p lumbar decompression and fusion with Dr. Guaman on 04/04/2020. * Dr. Guaman following - Lumbar MRI on 04/15 showed small intracanalicular fluid collection within the posterior aspect of the canal at the L5 level with mild to moderate mass effect upon the thecal sac. * During last admit pt was seen with Dr. Guaman on 04/17 - Feels spinal surgery is stable and encourages PT/OT (she did not want rehab initially but is now a greeable) * Was then admitted subsequently for suspected diverticulitis requiring hospitalization and contributing further to deconditioning and had a fall at home with subsequent worsening weakness and increased pain that prompted 3rd admission since March and continued deconditioning * Blood cultures NGTD * Lyme negative * Procal negative * CK 72 * AM Cortisol wnl * B12 wnl * TSH wnl * CXR without acute process * Urine without infection, FINAL * Xray L hip w/o fracture * Has not been on abx during admission and WBC wnl and remains afebrile Repeat MRI during this admission with: * 1. Interval progression of the abnormal epidural fluid collection from T12 through L5 which results in moderate mass effect along the thecal sac. This is concerning for an epidural hematoma or abscess. Surgical consultation advised. * 2. Postoperative changes consistent with L3-S1 posterior decompression and fusion. The metallic artifact results in suboptimal evaluation within the central canal and adjacent soft tissues. * 3. Moderate central canal narrowing at L1-L2 and L2-L3, unchanged. * 4. Stable subcutaneous fluid collection and edema within the lumbar region. This favors a postoperative seroma. Discussed with Dr. Guaman (on consult) -- feels no evidence clinically for abscess or need for surgery at this time. Recommending rehab at discharge to improve strength/function * CM following * Continue pain control with morphine prn, oxycodone prn * --> Added lidocaine patch and baclofen prn on 04/25 for muscle spasms (hx IT band issues and could be exacerbated) -- patient states benefit and we will continue these at discharge with daily monitoring by MD at [facility] to ensure pain controlled for continued rehab * US Doppler with small popliteal cyst which could also exacerbate issues, but only mildly * ESR 31 (no prior), CRP 0.86 (was 14 Apr 15) --> ESR now wnl, CRP 0.81 * Remains afebrile, WBC wnl at 6.5k No changes today. Will continue [id number]. PEER TO PEER DONE AND DENIED -- family to APPEAL * Patient has weakness and repeated hospitalization for diverticulitis with short rehab stay that was previously not helpful. * Re-presented (lives alone) after a fall and subsequent increase in pain requiring pain control and additional agents to achieve pain relief. * Given sac on spine on MRI, will need continued monitoring and should ideally be seen daily by a physician * PT/OT evals while inpatient with recommendations for short acute rehab at discharge * Ambulating 35 feet with RW and CGA with occasional minimum assist of 1 -- given that she lives alone and had repeat fall prior to admission, I feel she is unsafe for discharge home and requires level of care such as [facility] so that provider is rounding on her daily to ensure pain control and continued monitoring so that she is able to participate in therapy and will be safe for discharge from [facility] back to home. * Patient really should not go to a lower level of care at discharge as she will need continued positive re-enforcement and intensive therapy to return home safely. (2) Status post lumbar spine operative procedure for decompression of spinal cord: see above (3) Acute UTI: * Hx of such, 04/14 had UTI growing out enterococcus faecalis. Repeat UA on admission today with trace nitrate, esterase and possible considering having indwelling Sibley during last admission vs not completely clearing UTI. She is currently asymptomatic. * Repeat UCx sent, follow for sensitivity and specificity --> FINAL NO GROWTH (4) Abdominal pain: * During most recent admission was on ceftriaxone/flagyl for mild diverticulitis and finished recent course as an outpatient. * No abdominal pain or diarrhea noted at this time * Continue to monitor (5) Hypertension: * Continue amlodipine but did increase to 10mg daily (continue to utilize semaj hose to prevent swelling) -- BP improved, currently 130/75 * Consider outpatient sleep study for CPAP as well -- discussed with patient and she is to utilize O2 HS and with napping for now * Discussed with patient and she seems agreeable for follow up sleep study but may decide not to utilize CPAP if unable to tolerate * Previously on spironolactone which was discontinued due to hyperkalemia and most recent admission lisinopril discontinued for KWAME * Continue to monitor (6) Pulmonary hypertension: * Presumed type II-III * On Tp ne pm spiriva and sympicort daily for maintenance and atrovent/xopenex nebs Q8 prn. * Last echo from 11/09/18 reviewed showing elevated right ventricular systolic pressure at 30-40 mmHG - not confirmed with a R heart cath. * Has O2 prn at home but uses intermittently * Overnight pulse ox with sats dropping to 69% * Discussed likely benefit from CPAP and will need formal sleep study outpatient but unlikely that patient will agree to anything further than nasal cannula at this time * Asked nursing to please encourage O2 when sleeping/napping (7) Multiple pulmonary nodules: * Follow up per outpatient for routine CT imaging noted on 2019 -- plans for repeat screening CT in July 2020 per most recent note from Dr. Galeano outpatient * Hx 40pack year smoking history and occasional use and has history of breast ca s/p lumpectomy and radiation * --> At that time patient wanted to think about it and decide in further about having screening done * Given elevated alk phos (although likely liver in origin and no blastic/lytic lesions seen on recent imaging, will check GGT w AM labs) --> would consider chest imaging/lung ca as cause for recent weakness if warranted vs continuing outpatient surveillance (8) COPD (chronic obstructive pulmonary disease): * Has supplemental O2 2 L for PRN use, pt reports she is not sure when she is supposed to wear it other than "when I feel like it." * Titrate O2 88-92 %, currently 90% on RA * Continue home inhalers * See above -- O2 HS and while napping with outpatient follow up (9) Cirrhosis: * Completed RUQ US for elevated alk phos and anorexia on admission/decreased appetite [employer] to r/o smoldering GB infection. No evidence of acute dong or ductal dilatation but did note cirrhotic liver not previously noted on prior abdominal imaging * Alk phos elevation, likely due to liver disease * Hepatitis panel negative. * INR wnl * Ammonia <10 * Would rec f/u outpatient for continued monitoring * Avoid morphine (patient has not taken since the ) * Trend labs (10) Anxiety and depression: * Continue BuSpar, Cymbalta * Would recommend counseling upon discharge . can also discuss increasing medications (previous admission 2018 with increase in buspar) * No need for inpatient eval at this time * If continues to be inpatient through next week, consider consulting psych for further titration of medications vs adding additional agents given increased frustrations with repeat hospitalizations and issues with pain. Admission and Anticipated Discharge Date Admission Date: April 23, 2020 Subjective No major issues today. Awaiting placement. Reports no fevers/chills, chest pain, shortness of breath, abdominal pain, nausea, or vomiting. Physical Exam Constitutional: WD/WN, vitals as above Eyes: EOM intact bilaterally; no conjunctival abnormality ENMT: external ear and nose normal, oropharynx normal Neck: trachea midline, no thyromegaly normal visual inspection Respiratory: normal respiratory effort, lungs clear to auscultation no respiratory distress Cardiovascular: RRR, no murmur, no edema Gastrointestinal (Abdomen): Inspection/Auscultation: abdomen normal to inspection; abdomen not distended Musculoskeletal: no cyanosis or clubbing, extremities motor strength 5/5 Skin: no rashes, warm and dry Neurologic: moves all extremities and awake Psychiatric: Orientation: alert, oriented to person and cooperative Results & Data Results & Data ([facility]) Vital Signs (Past 12 Hours) Vital Signs Temp Pulse Pulse Resp BP Pulse Ox 04/30/20 14:39 36.5 C 96 H 16 118/66 91 04/30/20 07:33 36.5 C 86 16 103/67 93 PG Care Time/CCT Total # of Minutes Spent Total Time Spent with Patient: Total time spent is greater than 50% in coordination of care (as documented) at patient's floor/unit and/or counseling patient: Coding Level of Care Code 43796 Subseq Hosp Care Lvl 1 Diagnoses Weakness R53.1 Status post lumbar spine operative procedure for decompression of spinal cord Z98.890 Acute UTI N39.0 Abdominal pain R10.30 Abdominal location: lower abdomen, unspecified Hypertension I10 Hypertension type: essential hypertension Pulmonary hypertension I27.20 Multiple pulmonary nodules R91.8 COPD (chronic obstructive pulmonary disease) J44.9 Cirrhosis K74.60 Anxiety and depression F41.9; F32.9 (1) Abdominal pain Abdominal location: lower abdomen, unspecified Qualified Code(s): R10.30 - Lower abdominal pain, unspecified (2) Hypertension Hypertension type: essential hypertension Qualified Code(s): I10 - Essential (primary) hypertension
[2020-05-01] MEDS: FLUTICASONE/VILANTEROL 100/25MCG 14 PUFFS/INHALER INH SCH (07:57)
[2020-05-01] MEDS: UMECLIDINIUM BROMIDE 62.5MCG/BLISTER 7 PUFFS/INHALER INH SCH (07:58)
[2020-05-01] MEDS: busPIRone 15 MG TAB PO SCH ×2 (07:58→21:12)
[2020-05-01] MEDS: GABAPENTIN 300 MG CAP PO SCH ×3 (07:58→21:12)
[2020-05-01] MEDS: PANTOprazole 40 MG TAB PO SCH (07:59)
[2020-05-01] MEDS: DULoxetine HCL 60 MG CAP PO SCH (07:59)
[2020-05-01] MEDS: amLODIPine BESYLATE 5 MG TAB PO SCH (07:59)
[2020-05-01] MEDS: CHOLECALCIFEROL 1,000 UNITS 25 MCG TAB PO SCH (08:00)
[2020-05-01] MEDS: HEPARIN SOD 5,000 UNIT/0.5 ML VIAL SQ SCH ×2 (08:00→21:13)
[2020-05-01] MEDS: DULoxetine HCL 30 MG CAP PO SCH (08:00)
[2020-05-01] MEDS: LIDOCAINE 5% 1 PATCH TD SCH (08:02)
[2020-05-01] MEDS: bisacodyL 5 MG TABEC PO SCH (08:19)
[2020-05-01] MEDS: POLYETHYLENE (MIRALAX) 17 GM PACK PO SCH (09:21)
--- NOTE | 2020-05-01 10:08 | Orthopedic Progress Note ---
Date of Service May 01, 2020 Assessment & Plan (1) Status post lumbar spine operative procedure for decompression of spinal cord: Admission and Anticipated Discharge Date Admission Date: April 23, 2020 This time the patient still requires significant assistance in her activities fortunately she is responding to therapy and becoming stronger with ambulation. She clearly is demonstrating improvement to quadricep strength. Obviously she benefit from inpatient rehab to continue this course and ultimately allow her to become independent. Subjective Patient complaining of some back pain but not limiting in nature. She feels her walking is improving. Physical Exam Physical Exam: On exam she does exhibit increased strength testing to the left quadricep. Again I would suggest its at least 20% improved over the past several weeks. She does appear comfortable. The incision is clean dry and intact and nontender to palpation. Results & Data ([facility]) Vital Signs (Past 12 Hours) Vital Signs Temp Pulse Resp BP Pulse Ox 05/01/20 07:10 36.9 C 95 H 18 151/61 H 90
[2020-05-01] MEDS: oxyCODONE HCL IR 5 MG TAB (IMMEDIATE RELEASE) PO PRN ×2 (13:12→21:12)
[2020-05-01] MEDS: traMADol HCL 50 MG TABLET PO PRN (15:00)
[2020-05-01] MEDS: ACETAMINOPHEN 325 MG TAB PO PRN (21:11)
--- NOTE | 2020-05-01 21:52 | Hospitalist Progress Note ---
Date of Service May 01, 2020 Assessment & Plan (1) Weakness: * S/p lumbar decompression and fusion with Dr. Guaman on 04/04/2020. * Dr. Guaman following - Lumbar MRI on 04/15 showed small intracanalicular fluid collection within the posterior aspect of the canal at the L5 level with mild to moderate mass effect upon the thecal sac. * During last admit pt was seen with Dr. Guaman on 04/17 - Feels spinal surgery is stable and encourages PT/OT (she did not want rehab initially but is now a greeable) * Was then admitted subsequently for suspected diverticulitis requiring hospitalization and contributing further to deconditioning and had a fall at home with subsequent worsening weakness and increased pain that prompted 3rd admission since March and continued deconditioning * Blood cultures NGTD * Lyme negative * Procal negative * CK 72 * AM Cortisol wnl * B12 wnl * TSH wnl * CXR without acute process * Urine without infection, FINAL * Xray L hip w/o fracture * Has not been on abx during admission and WBC wnl and remains afebrile Repeat MRI during this admission with: * 1. Interval progression of the abnormal epidural fluid collection from T12 through L5 which results in moderate mass effect along the thecal sac. This is concerning for an epidural hematoma or abscess. Surgical consultation advised. * 2. Postoperative changes consistent with L3-S1 posterior decompression and fusion. The metallic artifact results in suboptimal evaluation within the central canal and adjacent soft tissues. * 3. Moderate central canal narrowing at L1-L2 and L2-L3, unchanged. * 4. Stable subcutaneous fluid collection and edema within the lumbar region. This favors a postoperative seroma. Discussed with Dr. Guaman (on consult) -- feels no evidence clinically for abscess or need for surgery at this time. Recommending rehab at discharge to improve strength/function * CM following * Continue pain control with morphine prn, oxycodone prn * --> Added lidocaine patch and baclofen prn on 04/25 for muscle spasms (hx IT band issues and could be exacerbated) -- patient states benefit and we will continue these at discharge with daily monitoring by MD at [facility] to ensure pain controlled for continued rehab * US Doppler with small popliteal cyst which could also exacerbate issues, but only mildly * ESR 31 (no prior), CRP 0.86 (was 14 Apr 15) --> ESR now wnl, CRP 0.81 * Remains afebrile, WBC wnl at 6.5k PEER TO PEER DONE AND DENIED -- family to APPEAL * Patient has weakness and repeated hospitalization for diverticulitis with short rehab stay that was previously not helpful. * Re-presented (lives alone) after a fall and subsequent increase in pain requiring pain control and additional agents to achieve pain relief. * Given sac on spine on MRI, will need continued monitoring and should ideally be seen daily by a physician * PT/OT tami while inpatient with recommendations for short acute rehab at discharge * Ambulating 35 feet with RW and CGA with occasional minimum assist of 1 -- given that she lives alone and had repeat fall prior to admission, I feel she is unsafe for discharge home and requires level of care such as [facility] so that provider is rounding on her daily to ensure pain control and continued monitoring so that she is able to participate in therapy and will be safe for discharge from [facility] back to home. * Patient really should not go to a lower level of care at discharge as she will need continued positive re-enforcement and intensive therapy to return home safely. No changes today on 05/01. Awaiting family appeal. (2) Status post lumbar spine operative procedure for decompression of spinal cord: see above (3) Acute UTI: * Hx of such, 04/14 had UTI growing out enterococcus faecalis. Repeat UA on admission today with trace nitrate, esterase and possible considering having indwelling Sibley during last admission vs not completely clearing UTI. She is currently asymptomatic. * Repeat UCx sent, follow for sensitivity and specificity --> FINAL NO GROWTH (4) Abdominal pain: * During most recent admission was on ceftriaxone/flagyl for mild diverticulitis and finished recent course as an outpatient. * No abdominal pain or diarrhea noted at this time * Continue to monitor (5) Hypertension: * Continue amlodipine but did increase to 10mg daily (continue to utilize semaj hose to prevent swelling) -- BP improved, currently 130/75 * Consider outpatient sleep study for CPAP as well -- discussed with patient and she is to utilize O2 HS and with napping for now * Discussed with patient and she seems agreeable for follow up sleep study but may decide not to utilize CPAP if unable to tolerate * Previously on spironolactone which was discontinued due to hyperkalemia and most recent admission lisinopril discontinued for KWAME * Continue to monitor (6) Pulmonary hypertension: * Presumed type II-III * On Tp ne pm spiriva and sympicort daily for maintenance and atrovent/xopenex nebs Q8 prn. * Last echo from 11/09/18 reviewed showing elevated right ventricular systolic pressure at 30-40 mmHG - not confirmed with a R heart cath. * Has O2 prn at home but uses intermittently * Overnight pulse ox with sats dropping to 69% * Discussed likely benefit from CPAP and will need formal sleep study outpatient but unlikely that patient will agree to anything further than nasal cannula at this time * Asked nursing to please encourage O2 when sleeping/napping (7) Multiple pulmonary nodules: * Follow up per outpatient for routine CT imaging noted on 2019 -- plans for repeat screening CT in July 2020 per most recent note from Dr. Galeano outpatient * Hx 40pack year smoking history and occasional use and has history of breast ca s/p lumpectomy and radiation * --> At that time patient wanted to think about it and decide in further about having screening done * Given elevated alk phos (although likely liver in origin and no blastic/lytic lesions seen on recent imaging, will check GGT w AM labs) --> would consider chest imaging/lung ca as cause for recent weakness if warranted vs continuing outpatient surveillance (8) COPD (chronic obstructive pulmonary disease): * Has supplemental O2 2 L for PRN use, pt reports she is not sure when she is supposed to wear it other than "when I feel like it." * Titrate O2 88-92 %, currently 90% on RA * Continue home inhalers * See above -- O2 HS and while napping with outpatient follow up (9) Cirrhosis: * Completed RUQ US for elevated alk phos and anorexia on admission/decreased appetite [employer] to r/o smoldering GB infection. No evidence of acute dong or ductal dilatation but did note cirrhotic liver not previously noted on prior abdominal imaging * Alk phos elevation, likely due to liver disease * Hepatitis panel negative. * INR wnl * Ammonia <10 * Would rec f/u outpatient for continued monitoring * Avoid morphine (patient has not taken since the ) * Trend labs (10) Anxiety and depression: * Continue BuSpar, Cymbalta * Would recommend counseling upon discharge . can also discuss increasing medications (previous admission 2018 with increase in buspar) * No need for inpatient eval at this time * If continues to be inpatient through next week, consider consulting psych for further titration of medications vs adding additional agents given increased frustrations with repeat hospitalizations and issues with pain. Admission and Anticipated Discharge Date Admission Date: April 23, 2020 Subjective Patient reports no new symptoms. Review of Systems Review of Systems: Constitutional: No fever, sweats or chills Eyes: No diplopia, no worsening or blurred vision ENT: normal hearing, no trouble swallowing Respiratory: No cough, sputum, dyspnea at rest or on exertion Cardiovascular: No chest pain, tightness or palpitations Abdomen: No pain, nausea, vomiting, diarrhea or constipation Back: lower back pain over the Left lumbar sacral region extending to the left buttock. : no dysuria, hematuria, increase in frequency Musculoskeletal: No joint pain, calf pain, swelling Neurologic: No weakness, numbness/tingling, or balance problems, no bowel or bladder incontinence. Psychiatric: No anxiety or depression Skin: No rash or itch Physical Exam Physical Exam: Constitutional: WD/WN, vitals as above Eyes: EOM intact bilaterally; no conjunctival abnormality ENMT: external ear and nose normal, oropharynx normal Neck: trachea midline, no thyromegaly normal visual inspection Respiratory: normal respiratory effort, lungs clear to auscultation no respiratory distress Cardiovascular: RRR, no murmur, no edema Gastrointestinal (Abdomen): Inspection/Auscultation: abdomen normal to inspection; abdomen not distended Musculoskeletal: no cyanosis or clubbing, extremities motor strength 5/5 Skin: no rashes, warm and dry Neurologic: moves all extremities and awake Psychiatric: Orientation: alert, oriented to person and cooperative Results & Data Results & Data ([facility]) Vital Signs (Past 12 Hours) Vital Signs Temp Pulse Resp BP BP Pulse Ox 05/01/20 20:24 91 05/01/20 20:08 36.6 C 116 H 18 155/81 H 79 L 05/01/20 15:37 36.9 C 100 H 18 115/74 90 PG Care Time/CCT Total # of Minutes Spent Total Time Spent with Patient: Total time spent is greater than 50% in coordination of care (as documented) at patient's floor/unit and/or counseling patient: Coding Level of Care Code 22615 Subseq Hosp Care Lvl 2 Diagnoses Weakness R53.1 Status post lumbar spine operative procedure for decompression of spinal cord Z98.890 Acute UTI N39.0 Abdominal pain R10.30 Abdominal location: lower abdomen, unspecified Hypertension I10 Hypertension type: essential hypertension Pulmonary hypertension I27.20 Multiple pulmonary nodules R91.8 COPD (chronic obstructive pulmonary disease) J44.9 Cirrhosis K74.60 Anxiety and depression F41.9; F32.9 Time Spent (min) 25 (1) Abdominal pain Abdominal location: lower abdomen, unspecified Qualified Code(s): R10.30 - Lower abdominal pain, unspecified (2) Hypertension Hypertension type: essential hypertension Qualified Code(s): I10 - Essential (primary) hypertension
[2020-05-02] MEDS: UMECLIDINIUM BROMIDE 62.5MCG/BLISTER 7 PUFFS/INHALER INH SCH (08:50)
[2020-05-02] MEDS: FLUTICASONE/VILANTEROL 100/25MCG 14 PUFFS/INHALER INH SCH (08:50)
[2020-05-02] MEDS: DULoxetine HCL 30 MG CAP PO SCH (08:51)
[2020-05-02] MEDS: amLODIPine BESYLATE 5 MG TAB PO SCH (08:51)
[2020-05-02] MEDS: DULoxetine HCL 60 MG CAP PO SCH (08:51)
[2020-05-02] MEDS: CHOLECALCIFEROL 1,000 UNITS 25 MCG TAB PO SCH (08:51)
[2020-05-02] MEDS: GABAPENTIN 300 MG CAP PO SCH (08:51)
[2020-05-02] MEDS: PANTOprazole 40 MG TAB PO SCH (08:51)
[2020-05-02] MEDS: busPIRone 15 MG TAB PO SCH (08:51)
[2020-05-02] MEDS: HEPARIN SOD 5,000 UNIT/0.5 ML VIAL SQ SCH (08:51)
[2020-05-02] MEDS: bisacodyL 5 MG TABEC PO SCH (08:57)
[2020-05-02] MEDS: POLYETHYLENE (MIRALAX) 17 GM PACK PO SCH (08:57)
[2020-05-02] MEDS: LIDOCAINE 5% 1 PATCH TD SCH (09:23)
[2020-05-02] MEDS: oxyCODONE HCL IR 5 MG TAB (IMMEDIATE RELEASE) PO PRN (13:49)
--- NOTE | 2020-05-09 21:14 | Discharge Summary ---
Date of Service May 02, 2020 Admission HPI Per Admitting Provider This is a 79 yo F who was recently admitted here from 03/31/2020 through 04/12/2020 for a history of chronic back pain with laminectomy and persistent L5 radiculopathy, spinal stenosis with history of epidural injections in January then underwent spinal decompression and fusion by Dr. Guaman on 04/04/2020, and had an extended hospital course due to back pain, KWAME with leukocytosis, as well as pt decision on home vs. rehab. Throughout that stay the patient had chronic leukocytosis that was attributed to outpatient steroids as there was no focal signs of infection, her UA was contaminated but the patient was asymptomatic. Her WBC on 04/10 was 20, and is consistent with today's level of 20.88 on admission. Her kidney function is worse with creatinine 2.19 and BUN 48 compared to creatinine 0.93 on discharge. She was discharged to [facility]. Pt has had increasing abdominal pain over the last 2 days, currently rated as a 6/10, with constipation and urinary retention. She was eating and drinking w ell. Reports having small soft BM this morning, but this was the first in 5 days. Pt reports she asked to be brought to the hospital this morning because of her pain. Pt is unsure if she was taking stool softeners or fiber, but states "I'm taking all the medications she's supposed to be taking. A CT of the abd/pelvis was completed and is negative for bowel obstruction, free air but does show moderate colonic fecal retention, colonic diverticulosis, minimal stranding within perisigmoid fat which is concerning for possible diverticulitis. She has been started on ceftraixone and flagyl IV. She denies any fever, chills or sweats. Other PMHx includes HTN, HLD, COPD with emphysema, chronic respiratory failure with hypoxia, prediabetes, pulmonary hypertension, KWAME, vitamin D deficiency, sc iatica, osteoporosis, and multiple pulmonary nodules. Principal Diagnosis weakness Discharge Exam Constitutional: WD/WN, vitals as above Eyes: EOM intact bilaterally; no conjunctival abnormality ENMT: external ear and nose normal, oropharynx normal Neck: trachea midline, no thyromegaly normal visual inspection Respiratory: normal respiratory effort, lungs clear to auscultation no respiratory distress Cardiovascular: RRR, no murmur, no edema Gastrointestinal (Abdomen): Inspection/Auscultation: abdomen normal to inspection; abdomen not distended Musculoskeletal: no cyanosis or clubbing, extremities motor strength 5/5 Skin: no rashes, warm and dry Neurologic: moves all extremities and awake Psychiatric: Orientation: alert, oriented to person and cooperative Discharge Data Allergies Allergy/AdvReac Type Severity Reaction Status Date / Time nitrofurantoin Allergy Severe SOB, Verified 04/23/20 11:46 [From Macrobid] nausea, vomiting penicillin V Allergy Unknown CAN'T Verified 04/23/20 11:46 REMEMBER REACTION atorvastatin AdvReac Intermediate muscle pain Verified 04/23/20 11:46 ciprofloxacin AdvReac Intermediate REDNESS Verified 04/23/20 11:46 ALONG VEIN simvastatin AdvReac Intermediate muscle pain Verified 04/23/20 11:46 Consultations 04/23/20 13:13 ED Decision to Admit Stat 04/23/20 16:10 Consult Case Management - Discharge Planning Routine Consult Orthopedic Surgery Routine Procedures Performed Operation Date: 04/24/20 12:20 <No data on this case meets the specified criteria> Ordered Studies 04/23/20 15:30 MR lumbar spine wo con Urgent 04/25/20 11:30 US gallbladder Routine 04/25/20 18:07 US venous doppler LE LT Routine Hospital Course (1) Weakness: * S/p lumbar decompression and fusion with Dr. Guaman on 04/04/2020. * Dr. Guaman following - Lumbar MRI on 04/15 showed small intracanalicular fluid collection within the posterior aspect of the canal at the L5 level with mild to moderate mass effect upon the thecal sac. * During last admit pt was seen with Dr. Guaman on 04/17 - Feels spinal surgery is stable and encourages PT/OT (she did not want rehab initially but is now agreeable) * Was then admitted subsequently for suspected diverticulitis requiring hospitalization and contributing further to deconditioning and had a fall at home with subsequent worsening weakness and increased pain that prompted 3rd admission since March and continued deconditioning * Blood cultures NGTD * Lyme negative * Procal negative * CK 72 * AM Cortisol wnl * B12 wnl * TSH wnl * CXR without acute process * Urine without infection, FINAL * Xray L hip w/o fracture * Has not been on abx during admission and WBC wnl and remains afebrile Repeat MRI during this admission with: * 1. Interval progression of the abnormal epidural fluid collection from T12 through L5 which results in moderate mass effect along the thecal sac. This is concerning for an epidural hematoma or abscess. Surgical consultation advised. * 2. Postoperative changes consistent with L3-S1 posterior decompression and fus ion. The metallic artifact results in suboptimal evaluation within the central canal and adjacent soft tissues. * 3. Moderate central canal narrowing at L1-L2 and L2-L3, unchanged. * 4. Stable subcutaneous fluid collection and edema within the lumbar region. This favors a postoperative seroma. Discussed with Dr. Guaman (on consult) -- feels no evidence clinically for abscess or need for surgery at this time. Recommending rehab at discharge to improve strength/function * CM following * Continue pain control with morphine prn, oxycodone prn * --> Added lidocaine patch and baclofen prn on 04/25 for muscle spasms (hx IT band issues and could be exacerbated) -- patient states benefit and we will continue these at discharge with daily monitoring by MD at [facility] to ensure pain controlled for continued rehab * US Doppler with small popliteal cyst which could also exacerbate issues, but only mildly * ESR 31 (no prior), CRP 0.86 (was 14 Apr 15) --> ESR now wnl, CRP 0.81 * Remains afebrile, WBC wnl at 6.5k PEER TO PEER DONE AND DENIED -- family to APPEAL * Patient has weakness and repeated hospitalization for diverticulitis with short rehab stay that was previously not helpful. * Re-presented (lives alone) after a fall and subsequent increase in pain requiring pain control and additional agents to achieve pain relief. * Given sac on spine on MRI, will need continued monitoring and should ideally be seen daily by a physician * PT/OT evals while inpatient with recommendations for short acute rehab at discharge * Ambulating 35 feet with RW and CGA with occasional minimum assist of 1 -- give n that she lives alone and had repeat fall prior to admission, I feel she is unsafe for discharge home and requires level of care such as [facility] so that provider is rounding on her daily to ensure pain control and continued monitoring so that she is able to participate in therapy and will be safe for discharge from [facility] back to home. * Patient really should not go to a lower level of care at discharge as she will need continued positive re-enforcement and intensive therapy to return home safely. discharged to SNF. Patient is agreeable. (2) Status post lumbar spine operative procedure for decompression of spinal cord: see above (3) Acute UTI: * Hx of such, 04/14 had UTI growing out enterococcus faecalis. Repeat UA on admission today with trace nitrate, esterase and possible considering having indwelling Sibley during last admission vs not completely clearing UTI. She is currently asymptomatic. * Repeat UCx sent, follow for sensitivity and specificity --> FINAL NO GROWTH (4) Abdominal pain: * During most recent admission was on ceftriaxone/flagyl for mild diverticulitis and finished recent course as an outpatient. * No abdominal pain or diarrhea noted at this time * Continue to monitor (5) Hypertension: * Continue amlodipine but did increase to 10mg daily (continue to utilize semaj hose to prevent swelling) -- BP improved, currently 130/75 * Consider outpatient sleep study for CPAP as well -- discussed with patient and she is to utilize O2 HS and with napping for now * Discussed with patient and she seems agreeable for follow up sleep study but may decide not to utilize CPAP if unable to tolerate * Previously on spironolactone which was discontinued due to hyperkalemia and most recent admission lisinopril discontinued for KWAME * Continue to monitor (6) Pulmonary hypertension: * Presumed type II-III * On Tp ne pm spiriva and sympicort daily for maintenance and atrovent/xopenex nebs Q8 prn. * Last echo from 11/09/18 reviewed showing elevated right ventricular systolic pressure at 30-40 mmHG - not confirmed with a R heart cath. * Has O2 prn at home but uses intermittently * Overnight pulse ox with sats dropping to 69% * Discussed likely benefit from CPAP and will need formal sleep study outpatient but unlikely that patient will agree to anything further than nasal cannula at this time * Asked nursing to please encourage O2 when sleeping/napping (7) Multiple pulmonary nodules: * Follow up per outpatient for routine CT imaging noted on 2019 -- plans for repeat screening CT in July 2020 per most recent note from Dr. Galeano outpatient * Hx 40pack year smoking history and occasional use and has history of breast ca s/p lumpectomy and radiation * --> At that time patient wanted to think about it and decide in further about having screening done * Given elevated alk phos (although likely liver in origin and no blastic/lytic lesions seen on recent imaging, will check GGT w AM labs) --> would consider chest imaging/lung ca as cause for recent weakness if warranted vs continuing outpatient surveillance (8) COPD (chronic obstructive pulmonary disease): * Has supplemental O2 2 L for PRN use, pt reports she is not sure when she is supposed to wear it other than "when I feel like it." * Titrate O2 88-92 %, currently 90% on RA * Continue home inhalers * See above -- O2 HS and while napping with outpatient follow up (9) Cirrhosis: * Completed RUQ US for elevated alk phos and anorexia on admission/decre ased appetite [employer] to r/o smoldering GB infection. No evidence of acute dong or ductal dilatation but did note cirrhotic liver not previously noted on prior abdominal imaging * Alk phos elevation, likely due to liver disease * Hepatitis panel negative. * INR wnl * Ammonia <10 * Would rec f/u outpatient for continued monitoring * Avoid morphine (patient has not taken since the ) * Trend labs (10) Anxiety and depression: * Continue BuSpar, Cymbalta * Would recommend counseling upon discharge . can also discuss increasing medications (previous admission 2019 with increase in buspar) * No need for inpatient eval at this time * If continues to be inpatient through next week, consider consulting psych for further titration of medications vs adding additional agents given increased frustrations with repeat hospitalizations and issues with pain. Total Time Total Time Spent Total Time Spent (In Minutes): 32 Discharge Plan Discharge Items Patient Disposition: Transfer Care Home Fac Reason For Visit: BACK PAIN Discharge Diagnosis: back pain Activity: Resume your previous activity Non-emergency contact: Primary Care Provider Call non-emergency contact if: you have any medication questions Follow-up/Referrals: Annette Dowd MD [Primary Care Provider] - Diet: Heart Healthy Addtl Attending Provider Instructions: Would rec f/u outpatient for continued monitoring Recommend followup with Ortho in 3-4 weeks PCP followup in 2-3 weeks. Pending Studies at Discharge: No Stand-Alone Forms: My [employer] Skilled Items Patient informed of condition?: Yes DNR: No Discharge Level of Care: Skilled Communicable Disease: No Discharge Prognosis: Stable Lines: None Urinary Catheter: No Medications and DC Order Prescriptions: New acetaminophen 325 mg Tablet 650 mg PO Q6H PRN (Reason: pain) Qty: 30 RF: 0 baclofen 10 mg Tablet 10 mg PO BID PRN (Reason: spasm) Qty: 45 RF: 0 lidocaine 5 % Adhesive Patch,Medicated 1 patch transdermal QAM Qty: 10 RF: 0 bisacodyl [Gentle Laxative (bisacodyl)] 5 mg Tablet,Delayed Release (Dr/Ec) 5 mg PO DAILY Qty: 30 RF: 0 oxycodone 5 mg Tablet 5 mg PO Q6H PRN (Reason: severe pain) Qty: 20 RF: 0 Continued amlodipine 5 mg tablet 5 mg PO QAM Qty: 90 RF: 3 gabapentin 300 mg capsule 300 mg PO TID RF: 0 pantoprazole 40 mg tablet,delayed release (DR/EC) 40 mg PO DAILY Qty: 90 RF: 3 ipratropium-albuterol 0.5 mg-3 mg(2.5 mg base)/3 mL solution for nebulization 3 ml INH Q8H PRN (Reason: shortness of breath or wheezing) Qty: 180 RF: 5 Symbicort 160-4.5 mcg/actuation HFA aerosol inhaler 2 puff INH BID Qty: 6 RF: 5 Spiriva Respimat 2.5 mcg/actuation mist 2 puff INH QAM Qty: 4 RF: 5 albuterol sulfate 90 mcg/actuation HFA aerosol inhaler 2 puff INH Q6H PRN (Reason: Shortness Of Breath Or Wheezing) Qty: 18 RF: 3 buspirone 15 mg tablet 15 mg PO BID Qty: 60 RF: 5 duloxetine 30 mg capsule,delayed release(DR/EC) 30 mg PO DAILY RF: 0 polyethylene glycol 3350 [Miralax] 17 gram Powder In Packet 17 g PO DAILY Qty: 0 RF: 0 cholecalciferol (vitamin D3) 50 mcg (2,000 unit) tablet 50 mcg PO QAM RF: 0 duloxetine 60 mg capsule,delayed release(DR/EC) 60 mg PO QAM RF: 0 tramadol 50 mg tablet 50 mg PO BID PRN (Reason: moderate pain) Qty: 20 RF: 0 Discharge Orders: Discharge Order (Routine); Ordered 05/02/20 Ordered By: Avtar Rouse Admission Data Admit Date/Time: 04/23/20 14:54 Attending Provider: Avtar Rouse Admit Provider: Hola Serrano Primary Care Provider: Annette Dowd V. Other Providers: Jose Guaman Other Interventions: Discharge Summary Assessment (RN) Last Done: 05/02/20 12:42 Coding Level of Care Code D/C Day Management >30 mins Diagnoses Weakness R53.1 Status post lumbar spine operative procedure for decompression of spinal cord Z98.890 Acute UTI N39.0 Abdominal pain R10.30 Abdominal location: lower abdomen, unspecified Hypertension I10 Hypertension type: essential hypertension Pulmonary hypertension I27.20 Multiple pulmonary nodules R91.8 COPD (chronic obstructive pulmonary disease) J44.9 Cirrhosis K74.60 Anxiety and depression F41.9; F32.9
== END 2020-05-02 14:30 | DRG 552 ==
LOC: ED 11:04 → 3W 14:54 → SUATTDRO 14:54 → 3W 15:46 → 3N 04-24 01:59

== ENCOUNTER 2024-06-12 19:04 | Inpatient (IN) ==
--- NOTE | 2024-06-12 20:53 | History & Physical Report ---
Date of Service June 12, 2024 Assessment & Plan (1) Small bowel obstruction: (2) Enteritis: (3) Hypertension: Plan Patient is a 83-year-old history of COPD, spinal stenosis, hypertension, hyperlipidemia. She was a direct admission from [facility] for small bowel obstruction s/p NG tube placement. Patient stated she had abdominal pain and vomiting that began suddenly Thursday afternoon, has been about the same since, not worsening. LBM 06/11, timing unknown. She was to [facility] earlier today AP CT showed small bowel obstruction, no free air or gas. NG tube was placed. #SBO/enteritis last BM 06/11 denies previous abd surgeries AP CT showed dilated small bowel could relate to enteritis/ileus or SBO. No free air or abscess. received 1L NSS bolus in ed; IVF resuscitation with LR @ 80 ml/hr x1L NG tubed placed at [facility] - KUB ordered to confirm placement IV Protonix on admission and daily Maalox prn IV Tylenol scheduled for pain control, IV morphine prn for breakthrough pain IV Zofran as needed defer abx as no leukocytosis; trend CBC General Surgery consulted - suspect likely enteritis, remove NG tube, advance diet as tolerated #HTN continue amlodipine, lisinopril hold spironolactone with mild dehydration/fluid losses with vomiting Chronic stable diagnoses: COPD - has oxygen prn (ordered), continue home inhalers Chronic pain/spinal stenosis - s/p extensive spinal surgeries and spinal nerve stimulator, buprenorphine patch Q7D (Wednesdays) depression/anxiety - continue bupropion VTE ppx: SCDs and TEDs; Hx of DVT provoked by surgery however may require surgical management so hold chemical ppx Diet: clears, advance as tolerated Dispo: med/tele Admission and Anticipated Discharge Date Admission Date: June 12, 2024 History of Present Illness Primary Care Provider: Annette Dowd MD Patient is a 83-year-old history of COPD, spinal stenosis, hypertension, hyperlipidemia. She was a direct admission from [facility] for small bowel obstruction s/p NG tube placement. Patient stated she had abdominal pain and vomiting that began suddenly Thursday afternoon, has been about the same since, not worsening. She stated she has had a bowel movement in the past 24 hours but none today. [facility] earlier today AP CT showed small bowel obstruction, no free air or gas. NG tube was placed. Patient denies any dizziness or lightheadedness. Her abdominal pain is well- controlled currently, she just has a sore throat from the NG tube. she denies any nicotine or daily alcohol use. She denies any previous abdominal surgeries. She has no history of small bowel obstructions. She stated for COPD she does have oxygen as needed at home, she does not use anything at bedtime. She does have a history of breast cancer s/p radiation approximately 8 to 9 years ago. She wishes to be full code. Transfer paperwork from [facility] reviewed. Patient receive Maalox, 1L NSS bolus, Zofran 4mg IV. Labs: - CMP revealed BUN 23, Cr 0.99, albumin 3.8, K+ 4.7, otherwise no abnormalities. - Mag 1.9 - lipase 27 - CBC revealed WC 6.8, hgb 14.7, otherwise no significant abnormalities. - covid/flu swab negative AP CT revealed dilated small bowel could relate to enteritis/ileus or SBO. No free air or abscess. - Unit secretaries working on having this uploaded to the chart. Patient reports X-Ray was taken moments prior to transfer to confirm NG placement however no XR within paperwork. Will order. Allergies Allergy/AdvReac Type Severity Reaction Status Date / Time ciprofloxacin Allergy Intermediate Redness Verified 05/11/24 09:02 ("along vein") nitrofurantoin Allergy Intermediate SOB, N/V Verified 05/11/24 09:02 [From Macrobid] atorvastatin AdvReac Intermediate Muscle pain Verified 05/11/24 09:02 simvastatin AdvReac Intermediate Muscle pain Verified 05/11/24 09:02 penicillin V AdvReac Unknown UPSET Verified 05/11/24 09:02 STOMACH Home Medications Medication Instructions Recorded Confirmed Type nebulizers (Aeroneb Go Nebulizer) #1 ea 09/26/20 05/11/24 Rx Incentive Spirometer #1 ea 12/13/21 05/11/24 Rx nebulizer accessories #2 ea 12/11/22 05/11/24 Rx amlodipine 5 mg tablet 5 mg PO QAM Hypertension #90 tabs 10/28/23 06/12/24 Rx bupropion HCl 300 mg 24 hr tablet, 300 mg PO 12/01/23 05/11/24 History extended release albuterol sulfate 90 mcg/actuation 2 puff inhalation Q6H PRN 12/29/23 06/12/24 Rx aerosol inhaler Shortness Of Breath Or Wheezing #18 grams spironolactone 25 mg tablet See Rx Instructions .Route 12/29/23 06/12/24 Rx .COMPLEX #30 tabs buprenorphine 5 mcg/hour weekly 1 patch transdermal Q7D #4 ea 05/20/24 06/12/24 Rx transdermal patch (Butrans) lisinopril 10 mg tablet 10 mg PO DAILY #90 tabs 05/30/24 06/12/24 Rx Past Med/Surg History Problem List (Updated 06/13/24 @ 00:29 by Teresa Jacinto PA-C) Enteritis Small bowel obstruction Chronic SI joint pain Weakness of hip Right knee pain Kyphosis of thoracolumbar 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 Lumbar post-laminectomy syndrome Cerebrovascular disease Stroke-like symptoms Palpitations Family history of colon cancer Depression (Chronic) Vitamin D deficiency disease (Chronic) Statin intolerance (Chronic) Spinal stenosis (Chronic) Sleep disturbance (Chronic) Pulmonary nodule COPD with emphysema Dyspnea on exertion Facet arthritis of lumbar region DVT prophylaxis (Acute) Current smoker Lumbar disc herniation with radiculopathy Back pain (Acute) Recurrent falls Sensorineural hearing loss of both ears PAD (peripheral artery disease) Atherosclerosis of abdominal aorta Dyslipidemia Left thyroid nodule CT scan 08/30/2021- 1.9 cm Postlaminectomy syndrome of lumbosacral region (Acute) Nocturnal hypoxia Preventative health care Insomnia Left inguinal hernia S/P insertion of spinal cord stimulator Colon cancer screening Hypoxia (Acute) H/O deep venous thrombosis LLE > s/p surgery, Eliquis since DC'ed Prediabetes (Chronic) Hearing decreased (Chronic) Gait disturbance (Chronic) PAC (premature atrial contraction) Tinnitus, bilateral Intermittent Mixed conductive and sensorineural hearing loss of left ear with restricted hearing of right ear Pulmonary hypertension RVSP elevated at 30 to 40 mmHg per 2019 echo Osteoporosis (Chronic) Multiple pulmonary nodules Under surveillance Lesion of right 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 (Chronic) Per records, pt unaware Hypertension (Chronic) Chronic back pain Stenosis of iliac artery (Chronic) Medical History Myalgia due to HMG CoA reductase inhibitor Nausea Aspiration into airway Pelvic pain Acute respiratory failure with hypoxia COPD exacerbation Dehydration History of anesthesia reaction at [facility] > after long surgery on spine, "took a while to come off ventilator" not sure of specific details > in "early" 2022 Spinal cord stimulator status instructed to bring remote dos Nocturnal hypoxia History of COVID-19 10/2021- denies having any symptoms History of UTI Degenerative disc disease Spinal stenosis Hx of deep venous thrombosis LLE (post-op back surgery) > 03/2020, was on Eliquis x few months after event Hyperlipidemia Peripheral arterial disease Dysfunction of left eustachian tube Right shoulder pain Gastrointestinal complaint Localized swelling of both lower legs Cirrhosis Asymptomatic bacteriuria Sciatica On home oxygen therapy Nocturnal hypoxia > no longer using 02 at home Osteoarthritis History of breast cancer Left s/p surgery- partial mastectomy LUE limb restriction COPD (chronic obstructive pulmonary disease) Follows with [facility] pulmonary Chronic respiratory failure with hypoxia Anxiety and depression "gets severe anxiety" Intermittent claudication Breast cancer (12/26/13) "Abnormal left breast mammogram Status post ultrasound-guided biopsies 10/06/2013 that revealed benign status post left breast excisional biopsy 12/02/2013 revealing infiltrating ductal carcinoma estrogen receptor positive, progesterone receptor positive, 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, stage pT2 Status post reexcision and sentinel lymph node biopsy 12/26/2013 pN0 (i+) Oncotype DX score of 11 Status post completion of radiation therapy 04/13/2014 received 5006 cGy utilizing hypo-fractionation Required post radiation wound care " Surgical History History of lumbar surgery 04/2021 [facility]- lumbar L3-S1 lumbar decompression/fusion (04/04/20): Grade view 1, MAC #3, ETT 7.5 at [facility] Status post lumbar spine operative procedure for decompression of spinal cord History of right knee joint replacement History of D&C History of colonoscopy History of tooth extraction History of cataract surgery R/L History of breast biopsy H/O lumbosacral spine surgery S/P breast lumpectomy Left Family History Daughter Breast cancer Diabetes Mother Aortic aneurysm Renal failure Brother Prostate cancer Aortic aneurysm Father Aortic aneurysm Pure hypercholesterolemia Hypertension Grandmother (Maternal) Colon cancer Unknown Diabetes Other No family history of adverse response to anesthesia Denies family history of Ovarian cancer Myocardial infarction Social History Smoking Status: Former smoker Tobacco Type: Cigarettes Age Started Using Tobacco: 18; Age Quit Using Tobacco: 78; packs per day: 1; Cigarettes Per Day: ppd; Smoking End Date: 6-7 yrs; Second Hand Exposure: No; Do You Dip or Chew Tobacco: No; Hx Alcohol Use: No Hx Substance Use: No Preferred Language: Tristanian Communication Ability: Effective Visual Impairment: No Limitations 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 Beliefs That Will Affect Care: None marital status: / Current Living Situation: Alone 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 Non-toxic appearing. HEENT- EOMI, mucous membranes dry. Hearing grossly intact. NG tube. Heart-normal S1 and S2. No murmurs, rubs or gallops. Lungs-clear bilaterally, no respiratory distress, no accessory muscle use. Abdomen-normal bowel sounds and soft. Mild distention, mild diffuse tenderness. Extremities- no clubbing, cyanosis, or edema. Rheumatologic-normal range of motion. Psychiatric-normal affect. Results & Data Results & Data Laboratory Results reviewed cbc, cmp, mag, lipase, covid/flu swab Diagnostic Findings reviewed AP CT Medications Administered ED [facility] - Maalox, 1L NSS, Zofran 4mg IV admission - LR @ 80 ml/hr, Tylenol 1g Iv Scheduled, morphine 2mg/4mg PRN ECG Additional Comments: ordered Code Status & VTE Plan Code Status full code VTE Prophylaxis Plan VTE Prophylaxis will be ordered: Yes Supervising Physician Co-Signing Physician Notes Attending addendum: I have physically seen this patient, have supervised the BEBETO's activities, and agree with the H&P unless as otherwise noted. Assessment and Plan: The patient is a 89-year-old female with a past medical history including COPD, spinal stenosis, hypertension, hyperlipidemia who presents to the [facility] as a direct admission from [facility] for evaluation and management of small bowel obstruction, having had an NG tube placement at that facility prior to transfer. She had been having abdominal pain and vomiting that began suddenly on Thursday afternoon 2 days ago, and presented to [facility] earlier in the day today after having had a CT scan showing small bowel obstruction. #Small bowel obstruction/enteritis- Last BM 06/11 No history of previous abdominal surgeries CT scan of abdomen pelvis showed dilated small bowel which could relate to enteritis/ileus or SBO. No free air or abscess Status post 1 L normal saline bolus in the ED at referring facility Placed on LR at 80 mL/h x 1 L now NG tube placed at [facility], with KUB at this facility now to confirm placement Pantoprazole 40 mg IV daily Acetaminophen 1 g IV every 8 hours needed for mild pain or fever Morphine sulfate 2 mg IV every 4 hours as needed for breakthrough pain Zofran 4 mg IV every 6 hours as needed Consult to general surgery, who reports that diagnosis is more likely enteritis, suggest removing NG tube, and advancing diet as tolerated Hypertension- Can resume amlodipine and lisinopril if able to tolerate NPO Holding spironolactone due to mild dehydration and fluid losses associated vomiting Chronic stable conditions: COPD continue oxygen for titration goal 92%, continue usual inhalers Depression/anxiety-can resume bupropion if tolerates p.o. Chronic pain/spinal stenosis-history of extensive spinal surgeries and spinal nerve stimulator, buprenorphine patch every 7 days Remaining orders and notations as noted PG Care Time/CCT Total # of Minutes Spent Total Time Spent with Patient: Total time spent is greater than 50% in coordination of care (as documented) at patient's floor/unit and/or counseling patient: Coding Level of Care Code 94508 INT INP/OBS CARE MIN Diagnoses Small bowel obstruction K56.609 Enteritis K52.9 Essential hypertension I10 Hypertension type: essential hypertension (3) Hypertension Hypertension type: essential hypertension Qualified Code(s): I10 - Essential (primary) hypertension
[2024-06-12] MEDS ORDERED: MoRPHine SULFATE 2 MG/ML CARP IV PRN (21:13)
[2024-06-12] MEDS ORDERED: MoRPHine SULFATE 4 MG/ML 1 ML CARP\\VIAL IV PRN (21:13)
[2024-06-12] MEDS ORDERED: ONDANSETRON INJ 2 MG/ML 2 ML VIAL IV PRN (21:20)
[2024-06-12] MEDS ORDERED: ALBUTEROL HFA 8 GM INHALER INH PRN (21:25)
[2024-06-12] MEDS: LACTATED RINGER'S 1,000 ML IV SCH (21:46)
[2024-06-12] MEDS: ACETAMINOPHEN 1,000 MG/100 ML VIAL IV SCH (22:19)
[2024-06-12] MEDS: PANTOprazole 40 MG/10 ML SYR IV ONE (22:19)
--- NOTE | 2024-06-12 22:19 | Surgery Consultation ---
Date of Consultation June 12, 2024 Assessment & Plan (1) Small bowel obstruction: 83-year-old woman presents with 3-day history of abdominal pain, nausea and vomiting. CT with possible enteritis versus obstruction. Given the fact that she has been passing flatus and continues to pass flatus, I highly doubt she has a small bowel obstruction. She much more likely has enteritis. We will await the pictures of the CT scan for review. However, given her passing of flatus, the NG tube may be removed at this time. As long as she continues to pass flatus, her diet may be advanced as tolerated. Please call with any questions or concerns. History of Present Illness Reason for Consultation: Possible small bowel obstruction Requesting Physician: Daniel Hendrickson DO Attending Physician: Daniel Hendrickson DO History of Present Illness 83-year-old woman presents with a 3-day history of abdominal pain, nausea, vomiting. It was worsening and she went to the urgent care at [facility]. A CT scan demonstrated enteritis versus a small bowel obstruction. She states that she is not having any abdominal pain. She states that she has been passing flatus and continues to pass flatus. She denies any pain other than the NG tube at this time. She denies fevers or chills. She denies other complaints. Allergies Allergy/AdvReac Type Severity Reaction Status Date / Time ciprofloxacin Allergy Intermediate Redness Verified 05/11/24 09:02 ("along vein") nitrofurantoin Allergy Intermediate SOB, N/V Verified 05/11/24 09:02 [From Macrobid] atorvastatin AdvReac Intermediate Muscle pain Verified 05/11/24 09:02 simvastatin AdvReac Intermediate Muscle pain Verified 05/11/24 09:02 penicillin V AdvReac Unknown UPSET Verified 05/11/24 09:02 STOMACH Home Medications Medication Instructions Recorded Confirmed Type nebulizers (Aeroneb Go Nebulizer) #1 ea 09/26/20 05/11/24 Rx Incentive Spirometer #1 ea 12/13/21 05/11/24 Rx nebulizer accessories #2 ea 12/11/22 05/11/24 Rx amlodipine 5 mg tablet 5 mg PO QAM Hypertension #90 tabs 10/28/23 06/12/24 Rx bupropion HCl 300 mg 24 hr tablet, 300 mg PO 12/01/23 05/11/24 History extended release albuterol sulfate 90 mcg/actuation 2 puff inhalation Q6H PRN 12/29/23 06/12/24 Rx aerosol inhaler Shortness Of Breath Or Wheezing #18 grams spironolactone 25 mg tablet See Rx Instructions .Route 12/29/23 06/12/24 Rx .COMPLEX #30 tabs buprenorphine 5 mcg/hour weekly 1 patch transdermal Q7D #4 ea 05/20/24 06/12/24 Rx transdermal patch (Butrans) lisinopril 10 mg tablet 10 mg PO DAILY #90 tabs 05/30/24 06/12/24 Rx Patient History Medical History Myalgia due to HMG CoA reductase inhibitor Nausea Aspiration into airway Pelvic pain Acute respiratory failure with hypoxia COPD exacerbation Dehydration History of anesthesia reaction at [facility] > after long surgery on spine, "took a while to come off ventilator" not sure of specific details > in "early" 2022 Spinal cord stimulator status instructed to bring remote dos Nocturnal hypoxia History of COVID-19 10/2021- denies having any symptoms History of UTI Degenerative disc disease Spinal stenosis Hx of deep venous thrombosis LLE (post-op back surgery) > 03/2020, was on Eliquis x few months after event Hyperlipidemia Peripheral arterial disease Dysfunction of left eustachian tube Right shoulder pain Gastrointestinal complaint Localized swelling of both lower legs Cirrhosis Asymptomatic bacteriuria Sciatica On home oxygen therapy Nocturnal hypoxia > no longer using 02 at home Osteoarthritis History of breast cancer Left s/p surgery- partial mastectomy LUE limb restriction COPD (chronic obstructive pulmonary disease) Follows with [facility] pulmonary Chronic respiratory failure with hypoxia Anxiety and depression "gets severe anxiety" Intermittent claudication Breast cancer (12/26/13) "Abnormal left breast mammogram Status post ultrasound-guided biopsies 10/06/2013 that revealed benign status post left breast excisional biopsy 12/02/2013 revealing infiltrating ductal carcinoma estrogen receptor positive, progesterone receptor positive, 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, stage pT2 Status post reexcision and sentinel lymph node biopsy 12/26/2013 pN0 (i+) Oncotype DX score of 11 Status post completion of radiation therapy 04/13/2014 received 5006 cGy utilizing hypo-fractionation Required post radiation wound care " Surgical History History of lumbar surgery 04/2021 [facility]- lumbar L3-S1 lumbar decompression/fusion (04/04/20): Grade view 1, MAC #3, ETT 7.5 at [facility] Status post lumbar spine operative procedure for decompression of spinal cord History of right knee joint replacement History of D&C History of colonoscopy History of tooth extraction History of cataract surgery R/L History of breast biopsy H/O lumbosacral spine surgery S/P breast lumpectomy Left Family History Daughter Breast cancer Diabetes Mother Aortic aneurysm Renal failure Brother Prostate cancer Aortic aneurysm Father Aortic aneurysm Pure hypercholesterolemia Hypertension Grandmother (Maternal) Colon cancer Unknown Diabetes Other No family history of adverse response to anesthesia Denies family history of Ovarian cancer Myocardial infarction Social History Smoking Status: Former smoker Tobacco Type: Cigarettes Age Started Using Tobacco: 18; Age Quit Using Tobacco: 78; packs per day: 1; Cigarettes Per Day: ppd; Smoking End Date: 6-7 yrs; Second Hand Exposure: No; Do You Dip or Chew Tobacco: No; Hx Alcohol Use: No Hx Substance Use: No Preferred Language: French Communication Ability: Effective Visual Impairment: No Limitations 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 Beliefs That Will Affect Care: None marital status: / Current Living Situation: Alone 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 How many Children do You have: 5 Feels Safe at Home: Yes Diet: regular during the past year weight has: increased > 10 lbs Seatbelt Use: sometimes Assistive Devices: Walker and Other Assistive Devices Comment: 3L NC w/ activity & 2L NC at rest PRN Review of Systems Review of Systems: All systems reviewed & are unremarkable except as noted in HPI & below Physical Exam Constitutional: WD/WN, vitals as above Eyes: PERRL, conjunctivae normal, anicteric sclerae Neck: trachea midline, no thyromegaly Respiratory: normal respiratory effort; no respiratory distress and no labored breathing Cardiovascular: Rate/Rhythm: regular rate and regular rhythm Gastrointestinal (Abdomen): Inspection/Auscultation: abdomen normal to inspection; abdomen not distended Percussion/Palpation: abdomen soft; abdomen nontender, no guarding and abdomen not rigid Skin: no rashes, warm and dry Psychiatric: A+Ox3, euthymic affect Results & Data Vital Signs (Past 12 Hours) Vital Signs Temp Pulse Pulse Resp BP Pulse Ox O2 Del Method 06/12/24 20:44 97 H 06/12/24 20:30 37.3 C 100 H 18 153/80 H 92 Room Air Diagnostic Findings The printout of the CT scan read from [facility] demonstrated dilated small bowel loops consistent with either enteritis or small bowel obstruction
[2024-06-12] MEDS: CHECK BUPRENORPHINE PATCH SCH (23:02)
--- NOTE | 2024-06-12 23:07 | XRay Report ---
Exam(s): XR KUB EXAM: XR Abdomen, 1 View and XR Chest, 1 View CLINICAL HISTORY: Reason for exam: confirm NGT placement. TECHNIQUE: Frontal view of the chest and abdomen COMPARISON: No relevant prior studies available. FINDINGS: This study does not include the pelvis. A nasogastric tube is noted with its tip in the region of the distal stomach. Lungs: No consolidation. Pleural space: No pleural effusion is seen. No pneumothorax. Heart: The heart is normal in size.. Mediastinum: There is mild uncoiling calcification thoracic aorta.. Gastrointestinal tract: There is a nonspecific bowel gas pattern.. Bones/joints: There are degenerative and postoperative changes involving the spine.. IMPRESSION: A nasogastric tube is noted with its tip in the region of the distal stomach. Electronically signed by: Jamel Mckeon MD 06/12/24 23:06 PM
[2024-06-13] MEDS ORDERED: ALUMINUM/MAGNESIUM SUSP 30 ML UDC PO PRN (00:30)
[2024-06-13 06:43] LABS: Basophils # (auto) 0.03 K/uL (0.00-0.20); Basophils % (auto) 0.6 %; Eosinophils # (auto) 0.07 K/uL (0.00-0.50); Eosinophils % (auto) 1.4 %; Hematocrit (blood only) 41.2 % (37.0-47.0); Hemoglobin 13.4 g/dl (12.0-16.0); Immature Granulocytes # (auto) 0.02 K/uL (0.01-0.20); Immature Granulocytes % (auto) 0.4 %; Lymphocytes # (auto) 1.66 K/uL (1.20-3.40); Lymphocytes % (auto) 33.9 %; Mean Corpuscular Hemoglobin 29.7 pg (25.0-34.0); Mean Corpuscular Hgb Conc 32.5 g/dL (32.0-36.0); Mean Corpuscular Volume 91.4 fL (80.0-100.0); Mean Platelet Volume 9.6 fL (9.4-12.4); Monocytes # (auto) 0.78 K/uL (0.11-0.59); Monocytes % (auto) 15.9 %; Neutrophils # (auto) 2.34 K/uL (1.40-6.50); Neutrophils % (auto) 47.8 %; Platelet Count 171 K/uL (130-400); RDW Coefficient of Variation 13.1 % (11.5-14.5); Red Blood Count 4.51 M/uL (4.20-5.40)
[2024-06-13 07:01] LABS: BUN Creatinine Ratio 21.4 (10-20)
--- NOTE | 2024-06-13 08:40 | Electrocardiogram Report ---
Test Reason : Blood Pressure : */* mmHG Vent. Rate : 89 BPM Atrial Rate : 89 BPM P-R Int : 170 ms QRS Dur : 80 ms QT Int : 354 ms P-R-T Axes : 86 85 76 degrees QTcB Int : 430 ms Poor data quality, interpretation may be adversely affected Sinus rhythm with frequent Premature atrial complexes Otherwise normal ECG When compared with ECG of 10-May-2024 12:58, Premature atrial complexes are no longer bigeminal Confirmed by Stephen Baez ([id number]) on 06/13/2024 8:40:12 AM Referred By: Daniel Hendrickson Confirmed By: Stephen Baez
[2024-06-13] MEDS: PANTOprazole 40 MG/10 ML SYR IV SCH (09:12)
[2024-06-13] MEDS: amLODIPine BESYLATE 5 MG TAB PO SCH (09:12)
[2024-06-13] MEDS: buPROPion XL 300 MG TABCR PO SCH (09:12)
[2024-06-13] MEDS: lisinopril 10 MG TAB PO SCH (09:12)
[2024-06-13 11:17] VITALS: O2SAT 91
[2024-06-13 15:59] VITALS: BP 107/70; PULSE 85; RESP 18; TEMP 97.6
--- NOTE | 2024-06-13 17:58 | Discharge Summary ---
Discharge Summary Date of Service June 13, 2024 Principal Dx & Hospital Course #1 = Principal Diagnosis (1) Small bowel obstruction: (2) Enteritis: (3) Hypertension: Plan Patient is a 83-year-old history of COPD, spinal stenosis, hypertension, hyperlipidemia. She was a direct admission from [facility] for small bowel obstruction s/p NG tube placement. Patient stated she had abdominal pain and vomiting that began suddenly Thursday afternoon, has been about the same since, not worsening. LBM 06/11, timing unknown. She was to [facility] earlier today AP CT showed small bowel obstruction, no free air or gas. NG tube was placed. #SBO/enteritis AP CT showed dilated small bowel could relate to enteritis/ileus or SBO. No free air or abscess. received 1L NSS bolus in ed; IVF resuscitation with LR @ 80 ml/hr x1L NG placed at [facility], removed by our general surgeon 06/12. PPI to continue on discharge, zofran prn Discussed w/ general surgery 06/13 - patient okay for discharge from their standpoint. #HTN continue amlodipine, lisinopril Resume spironolactone on discharge. Chronic stable diagnoses: COPD - has oxygen prn (ordered), continue home inhalers Chronic pain/spinal stenosis - s/p extensive spinal surgeries and spinal nerve stimulator, buprenorphine patch Q7D (Wednesdays) depression/anxiety - continue bupropion Patient discharged home 06/13. Admission HPI Per Admitting Provider Patient is a 83-year-old history of COPD, spinal stenosis, hypertension, hyperlipidemia. She was a direct admission from [facility] for small bowel obstruction s/p NG tube placement. Patient stated she had abdominal pain and vomiting that began suddenly Thursday afternoon, has been about the same since, not worsening. She stated she has had a bowel movement in the past 24 hours but none today. [facility] earlier today AP CT showed small bowel obstruction, no free air or gas. NG tube was placed. Patient denies any dizziness or lightheadedness. Her abdominal pain is well-controlled currently, she just has a sore throat from the NG tube. she denies any nicotine or daily alcohol use. She denies any previous abdominal surgeries. She has no history of small bowel obstructions. She stated for COPD she does have oxygen as needed at home, she does not use anything at bedtime. She does have a history of breast cancer s/p radiation approximately 8 to 9 years ago. She wishes to be full code. Transfer paperwork from [facility] reviewed. Patient receive Maalox, 1L NSS bolus, Zofran 4mg IV. Labs: - CMP revealed BUN 23, Cr 0.99, albumin 3.8, K+ 4.7, otherwise no abnormalities. - Mag 1.9 - lipase 27 - CBC revealed WC 6.8, hgb 14.7, otherwise no significant abnormalities. - covid/flu swab negative AP CT revealed dilated small bowel could relate to enteritis/ileus or SBO. No free air or abscess. - Unit secretaries working on having this uploaded to the chart. Patient reports X-Ray was taken moments prior to transfer to confirm NG placement however no XR within paperwork. Will order. Discharge Exam Constitutional WD/WN, vitals as above Eyes PERRL, conjunctivae normal, anicteric sclerae Respiratory breathing unlabored Cardiovascular well perfused Gastrointestinal (Abdomen) +BS, no tenderness to palpation, soft Psychiatric A+Ox3, euthymic affect Discharge Plan Discharge Items Patient Disposition: Home - Self-Care Reason For Visit: SBO Discharge Diagnosis: Gastroenteritis Activity: Resume your previous activity Non-emergency contact: Primary Care Provider Call non-emergency contact if: you have any medication questions and your symptoms worsen Follow-up/Referrals: Annette Dowd MD [Primary Care Provider] - Diet: Low Fiber Addtl Attending Provider Instructions: Ms. Thomas, You were recently hospitalized for nausea and vomiting. Initially, there was a concern of a possible bowel obstruction however after being evaluated by our surgery team, this was found to not be accurate. You did not have a bowel obstruction, but you do have some inflammation of your bowels secondary to nausea and vomiting. Please see recommendations below regarding your discharge. Please take Pantoprazole 40mg once daily. Please use Zofran 4mg every 6 hours as needed for nausea and vomiting. Please stay on a low fiber diet for 2-4 weeks to allow time for your bowels to rest and heal. Please resume the remainder of your outpatient medications. Please follow up with your PCP within 1-2 weeks of discharge. If you develop any refractory nausea/vomiting, unable to move your bowels, or you stop passing gas, experience fevers/chills please report back to the ER for further care. Sincerely, Octavia Chiu PA-C Pending Studies at Discharge: Yes Stand-Alone Forms: My [facility], Smoking Cessation Medications and DC Order Prescriptions: New pantoprazole 40 mg tablet,delayed release (DR/EC) 40 mg PO DAILY Qty: 30 0RF ondansetron 4 mg tablet,disintegrating 4 mg PO Q6H PRN (Reason: nausea and vomiting) Qty: 20 0RF Continued bupropion HCl 300 mg tablet extended release 24 hr 300 mg PO amlodipine 5 mg tablet 5 mg PO QAM Qty: 90 3RF spironolactone 25 mg tablet See Rx Instructions .ROUTE .COMPLEX Qty: 30 5RF Dose Instruction: TAKE 1 TABLET BY MOUTH ONCE DAILY Rx Instructions: TAKE 1 TABLET BY MOUTH ONCE DAILY buprenorphine [Butrans] 5 mcg/hour patch weekly 1 patch transdermal Q7D Qty: 4 0RF Rx Instructions: ONGOING THERAPY lisinopril 10 mg tablet 10 mg PO DAILY Qty: 90 3RF albuterol sulfate 90 mcg/actuation HFA aerosol inhaler 2 puff INH Q6H PRN (Reason: Shortness Of Breath Or Wheezing) Qty: 18 5RF No Action (DME) Aeroneb Go Nebulizer Misc See Rx Instructions .MEDSUPPLY Qty: 1 0RF Rx Instructions: With tubing and supplies. J44.9. J45.9. (DME) nebulizer accessories Kit See Rx Instructions .Route Qty: 2 12RF Rx Instructions: Nebulizer suppies (neb Kits) (DME) Incentive Spirometer Misc See Rx Instructions .MEDSUPPLY Qty: 1 0RF Rx Instructions: As directed Discharge Orders: Discharge Order (Routine); Ordered 06/13/24 Ordered By: Octavia Chiu Admission Data Admit Date/Time: 06/12/24 21:21 Attending Provider: Hussein Hirsch Admit Provider: Daniel Hendrickson Primary Care Provider: Annette Dowd V. Other Providers: Donald Doss Hospital Stay Data Consultations 06/12/24 21:14 Consult General Surgery Stat Pending Results Patient Have Any Pending Studies at Discharge: Yes Discharge Instructions Given to Patient (Per Discharging Provider) Ms. Thomas, You were recently hospitalized for nausea and vomiting. Initially, there was a concern of a possible bowel obstruction however after being evaluated by our surgery team, this was found to not be accurate. You did not have a bowel obstruction, but you do have some inflammation of your bowels secondary to nausea and vomiting. Please see recommendations below regarding your discharge. Please take Pantoprazole 40mg once daily. Please use Zofran 4mg every 6 hours as needed for nausea and vomiting. Please stay on a low fiber diet for 2-4 weeks to allow time for your bowels to rest and heal. Please resume the remainder of your outpatient medications. Please follow up with your PCP within 1-2 weeks of discharge. If you develop any refractory nausea/vomiting, unable to move your bowels, or you stop passing gas, experience fevers/chills please report back to the ER for further care. Sincerely, Octavia Chiu PA-C Total Time Total Time Spent Total Time Spent (In Minutes): 55 Total Time Includes: Examination of the Patient, Discharge Planning, Medication Reconciliation and Communication With Other Providers Coding Level of Care Code 69164 INP/OBS DISCH >30 MIN Diagnoses Small bowel obstruction K56.609 Enteritis K52.9 Essential hypertension I10 Hypertension type: essential hypertension
[2024-06-15] MEDS ORDERED: BUPRENORPHINE 5 MCG/HR TDSY TD SCH (09:30)
== END 2024-06-13 19:29 | disposition home or self-care (01) | DRG 390 ==
LOC: SUATTDRO 20:32 → 2N 20:32

== ENCOUNTER 2025-01-13 17:28 | Inpatient (IN) ==
[2025-01-13 17:57] LABS: Hematocrit (blood only) 43.2 % (37.0-47.0); Hemoglobin 14.9 g/dl (12.0-16.0); Immature Granulocytes # (auto) 0.04 K/uL (0.01-0.20); Immature Granulocytes % (auto) 0.4 %; Mean Corpuscular Hemoglobin 29.9 pg (25.0-34.0); Mean Corpuscular Volume 86.6 fL (80.0-100.0); Platelet Count 190 K/uL (130-400); RDW Standard Deviation 42.2 fL (36.4-46.3); Red Blood Count 4.99 M/uL (4.20-5.40); White Blood Count 10.62 K/ul (4.8-10.8)
[2025-01-13] MEDS: KETOROLAC TROMETHAMINE 15 MG/ML VIAL IV STA (17:58)
[2025-01-13] MEDS: PLASMA-LYTE A 1,000 ML IV ONE (17:58)
--- NOTE | 2025-01-13 18:01 | Emergency Department Note ---
Impression & Plan Sepsis, Elevated bilirubin, Acute UTI (urinary tract infection), Chronic hypoxemic respiratory failure ED Provider Note NAME: WILMAR IBRAHIM AGE: 84 SEX: F : 1940 ARRIVES VIA: Ambulance INFORMANT: Patient, EMS ED PROVIDER(S): Mendez Reynoso DO CHIEF COMPLAINT: weakness, urinary symptoms HPI: This is a 84-year-old female with the PMHx of COPD with chronic hypoxemic respiratory failure on LFNC, pHTN, osteoporosis, HTN, DLD, CVA, lumbar DDD s/p surgeries with chronic pain syndrome presenting to [facility] for further evaluation of generalized illness. Patient is accompanied by EMS who provide additional history. EMS reports she has multiple complaints and seemed to be more SOB than her baseline. She was on LFNC and given a duoneb. She states her symptoms have been ongoing since Thursday. She notes increasing SOB but denies significant cough. She states that this does not feel like a COPD exacerbation. She is more concerns for her weakness, fatigue, nausea as well as urinary symptoms. She states that she starting to feel febrile over the last few days. She states she has a pressure like pain with urination. She has also been struggling to void and feels like she has urinary retention. Notes some crampy abdominal pain as well as nausea without emesis. No cough or congestion. Denies chest pain or palpitations. No shortness of breath from her baseline per patient. No recent changes in bowel movements. Patient denies recent changes in medications or OTC supplements. She does note that she had recent lab work within the past few days. She states that they lost her urinalysis. Patient offers no other complaints, today. ADDITIONAL HISTORY OBTAINED: Per HPI Chronic Medical/Social Conditions Affecting Care: Per HPI PAST MEDICAL HISTORY: See Below PAST SURGICAL HISTORY: See Below FAMILY HISTORY: See Below SOCIAL HISTORY: See Below HOME MEDICATIONS: See Below ALLERGIES: See Below VITALS: See Below PHYSICAL EXAMINATION: GENERAL: Sitting up in bed, alert, ill appearing, well nourished, no distress, non-toxic EYE EXAM: normal conjunctiva. OROPHARYNX: no exudate, no erythema, lips, buccal mucosa, and tongue normal and mucous membranes are dry NECK: supple, no nuchal rigidity, no adenopathy, non-tender LUNGS: Decreased BS in all lung tarango. Normal chest wall mechanics HEART: no murmurs, tachycardic rate, regular rhythm ABDOMEN: abdomen soft, minimal generalized TTP, worse in the lower quadrants, no masses, no rebound or guarding. BACK: Back is symmetrical on inspection and there is no deformity, no midline tenderness, no CVA tenderness. SKIN: no rashes and no bruising UPPER EXTREMITIES: upper extremities are grossly normal. LOWER EXTREMITIES: No pitting edema. NEURO EXAM: Normal sensorium, GCS 15, normal speech, no gross weakness of arms, no gross weakness of legs. MEDICAL DECISION MAKING: Differential diagnoses includes but not limited to sepsis, bacteremia, UTI, nephrolithiasis, viral URI, PNA, COPD exacerbation, electrolyte derangements, dehydration In summary, this is an 84 year old female who presented with fever and urinary symptoms. Differential as above. Nursing notes and pertinent past medical records reviewed. Vital signs reviewed and the patient is febrile and tachycardic raising concerns for infectious pathology. She will require further workup for sepsis. History and presentation revealed comorbidities mostly significant for COPD but she does not present as a COPD exacerbation. I rather have concerns for or GI pathology leading to her sepsis. Physical examination revealed as above. As a result of my initial evaluation, plan for Toradol for antipyretic as well as IVFR. I suspect possible PNA, GI/ as the source. She is not immunosuppressed or detention resident. I do feel that IV CTX is appropriate at this time. Diagnostics interpreted by me include EKG and cardiac monitoring as listed below: -Cardiac Monitoring: An order was placed for continuous cardiac monitoring. The monitor shows a rate of 90-110s with regular rhythm. -ECG: Sinus tachycardia at a rate of [address] segment changes to suggest STEMI. Intervals within Patient completed laboratory studies and imaging. Results independently interpreted by me are no significant leukocytosis but mild elevation of procalcitonin. Normal electrolytes and kidney function. She does have mild elevation of alk phos and tBili. The patient was managed with IV Ceftriaxone. Patient was found to have a contaminated urinalysis that represents an acute infection. CT was independently interpreted by me showing evidence of significant bladder thickening. I do feel this correlates with the patient's symptoms and presentation today with a fever as well as tachycardia. I do believe the patient likely has sepsis secondary to complicated UTI. Patient does live alone and has significant comorbidities. I do feel she is unsafe for discharge at this time. I would recommend inpatient management of IV antibiotics, respiratory hygiene and fluid resuscitation. The patient is agreeable to this. Ultimately, the decision was made to admit the patient for sepsis 2/2 UTI. I discussed the case with the hospitalist service via telephone/TigerText and they are agreeable to admit the patient to their services. Based on the above, including the patient's age, coexisting illnesses, labs, imaging, and exam findings the decision to treat as an inpatient. I discussed the patient with the hospitalist team who recommended admission to their services. They received the medications, treatments, interventions indicated above and their condition remained guarded. I discussed my findings with the patient and their family and they understand and agree with the treatment plan. All patient / family questions were answered to their satisfaction. Consults/Care Managements Discussions: Per MDM ER treatment provided: See above Procedures:none Critical Care: None The chart was completed utilizing [employer] Speech voice recognition software. Grammatical errors, random word insertions, pronoun errors, and incomplete sentences are an occasional consequence of this system due to software limitations, ambient noise, and hardware issues. Any formal questions or concerns about the content, text, or information contained within the body of this dictation should be directly addressed to the physician for clarification. Past Med/Surg History Problem List (Updated 01/14/25 @ 16:29 by Mendez Reynoso DO) Chronic hypoxemic respiratory failure (Acute) Acute UTI (urinary tract infection) (Acute) Elevated bilirubin (Acute) Sepsis (Acute) Essential hypertension COPD (chronic obstructive pulmonary disease) Bacteremia due to Gram-negative bacteria Elevated bilirubin Chronic knee pain after total replacement of right knee joint Anxiety with depression COPD with exacerbation Enteritis Small bowel obstruction Chronic SI joint pain Weakness of hip Right knee pain Kyphosis of thoracolumbar 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 Lumbar post-laminectomy syndrome Cerebrovascular disease Stroke-like symptoms Palpitations Family history of colon cancer Depression (Chronic) Vitamin D deficiency disease (Chronic) Statin intolerance (Chronic) Spinal stenosis (Chronic) Sleep disturbance (Chronic) Pulmonary nodule COPD with emphysema Dyspnea on exertion Facet arthritis of lumbar region DVT prophylaxis (Acute) Current smoker Lumbar disc herniation with radiculopathy Back pain (Acute) Recurrent falls Sensorineural hearing loss of both ears PAD (peripheral artery disease) Atherosclerosis of abdominal aorta Dyslipidemia Left thyroid nodule CT scan 08/30/2021- 1.9 cm Postlaminectomy syndrome of lumbosacral region (Acute) Nocturnal hypoxia Preventative health care Insomnia Left inguinal hernia S/P insertion of spinal cord stimulator Colon cancer screening Hypoxia (Acute) H/O deep venous thrombosis LLE > s/p surgery, Eliquis since DC'ed Prediabetes (Chronic) Hearing decreased (Chronic) Gait disturbance (Chronic) PAC (premature atrial contraction) Tinnitus, bilateral Intermittent Mixed conductive and sensorineural hearing loss of left ear with restricted hearing of right ear Pulmonary hypertension RVSP elevated at 30 to 40 mmHg per 2019 echo Osteoporosis (Chronic) Multiple pulmonary nodules Under surveillance Lesion of right benton kidney (Chronic) Per records, pt unaware Hypertension (Chronic) Chronic back pain Stenosis of iliac artery (Chronic) Medical History Myalgia due to HMG CoA reductase inhibitor Nausea Aspiration into airway Pelvic pain Acute respiratory failure with hypoxia COPD exacerbation Dehydration History of anesthesia reaction at [facility] > after long surgery on spine, "took a while to come off ventilator" not sure of specific details > in "early" 2022 Spinal cord stimulator status instructed to bring remote dos Nocturnal hypoxia History of COVID-19 10/2021- denies having any symptoms History of UTI Degenerative disc disease Spinal stenosis Hx of deep venous thrombosis LLE (post-op back surgery) > 03/2020, was on Eliquis x few months after event Hyperlipidemia Peripheral arterial disease Dysfunction of left eustachian tube Right shoulder pain Gastrointestinal complaint Localized swelling of both lower legs Cirrhosis Asymptomatic bacteriuria Sciatica On home oxygen therapy Nocturnal hypoxia > no longer using 02 at home Osteoarthritis History of breast cancer Left s/p surgery- partial mastectomy LUE limb restriction COPD (chronic obstructive pulmonary disease) Follows with [facility] pulmonary Chronic respiratory failure with hypoxia Anxiety and depression "gets severe anxiety" Intermittent claudication Breast cancer (12/26/13) "Abnormal left breast mammogram Status post ultrasound-guided biopsies 10/06/2013 that revealed benign status post left breast excisional biopsy 12/02/2013 revealing infiltrating ductal carcinoma estrogen receptor positive, progesterone receptor positive, 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, stage pT2 Status post reexcision and sentinel lymph node biopsy 12/26/2013 pN0 (i+) Oncotype DX score of 11 Status post completion of radiation therapy 04/13/2014 received 5006 cGy utilizing hypo-fractionation Required post radiation wound care " Surgical History History of lumbar surgery 04/2021 [facility]- lumbar L3-S1 lumbar decompression/fusion (04/04/20): Grade view 1, MAC #3, ETT 7.5 at [facility] Status post lumbar spine operative procedure for decompression of spinal cord History of right knee joint replacement History of D&C History of colonoscopy History of tooth extraction History of cataract surgery R/L History of breast biopsy H/O lumbosacral spine surgery S/P breast lumpectomy Left Family History Daughter Breast cancer Diabetes Mother Aortic aneurysm Renal failure Brother Prostate cancer Aortic aneurysm Father Aortic aneurysm Pure hypercholesterolemia Hypertension Grandmother (Maternal) Colon cancer Unknown Diabetes Other No family history of adverse response to anesthesia Denies family history of Ovarian cancer Myocardial infarction Social History Smoking Status: Never smoker Tobacco Type: Cigarettes Age Started Using Tobacco: 18; Age Quit Using Tobacco: 78; packs per day: 1; Cigarettes Per Day: ppd; Second Hand Exposure: No; Do You Dip or Chew Tobacco: No; Tobacco Cessation Education Requested by Patient: No Hx Alcohol Use: No Hx Substance Use: No Preferred Language: Azeri Communication Ability: Effective Visual Impairment: No Limitations Towel Weaver Required: No Beliefs That Will Affect Care: None marital status: / Current Living Situation: Alone 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 How many Children do You have: 5 Other Information That Helps Us Care for You: No Feels Safe at Home: Yes Safety Concerns: Feels Safe At This Time Diet: regular during the past year weight has: increased > 10 lbs Seatbelt Use: sometimes Assistive Devices: Glasses, Hearing Aid - Bilateral, Oxygen - at Night, Oxygen - Continuous and Walker Assistive Devices Comment: Uses o2 as needed Allergies Allergies Allergy/AdvReac Type Severity Reaction Status Date / Time ciprofloxacin Allergy Intermediate Redness Verified 01/11/25 11:10 ("along vein") nitrofurantoin Allergy Intermediate SOB, N/V Verified 01/11/25 11:12 [From Macrobid] atorvastatin AdvReac Intermediate Muscle pain Verified 01/11/25 10:38 simvastatin AdvReac Intermediate Muscle pain Verified 01/11/25 10:38 Home Meds Home Medications Medication Instructions Recorded Confirmed bupropion HCl 300 mg 24 hr tablet, 300 mg PO QAM 12/01/23 01/13/25 extended release buspirone 10 mg tablet 10 mg PO BID 11/10/24 01/13/25 spironolactone 25 mg tablet 25 mg PO DAILY 01/13/25 01/13/25 Previous Rx's Medication Instructions Recorded nebulizers ([employer] Go Nebulizer) #1 ea 09/26/20 Incentive Spirometer #1 ea 12/13/21 nebulizer accessories #2 ea 12/11/22 lisinopril 10 mg tablet 10 mg PO DAILY #90 tabs 05/30/24 albuterol sulfate 90 mcg/actuation 2 puff inhalation Q6H PRN 09/30/24 aerosol inhaler Shortness Of Breath Or Wheezing #18 grams budesonide 160 mcg-glycopyr 9 2 inh inhalation BID #10.7 grams 10/31/24 mcg-formot 4.8 mcg/actuation HFA inhaler (Breztri Aerosphere) buprenorphine 20 mcg/hour weekly 1 patch transdermal Q7D #4 ea 12/19/24 transdermal patch ipratropium 0.5 mg-albuterol 3 mg 3 ml inhalation Q8H PRN shortness 01/12/25 (2.5 mg base)/3 mL nebulization of breath or wheezing #180 mL soln Results & Data (ED) Vital Signs Vital Signs - 24 hr 01/13/25 17:28 01/13/25 17:40 01/13/25 17:40 Temperature 38.8 C H Temperature Source Oral Pulse Rate 115 H 103 H Pulse Rate [Apical] Pulse Rhythm Regular Regular Pulse Rhythm [Apical] Pulse Strength Normal Pulse Strength [Apical] Respiratory Rate 22 22 Respiratory Effort / Characteristics Non-Labored Spontaneous Respiratory Depth Normal Respiratory Pattern Regular Blood Pressure 125/89 Blood Pressure [Right Arm] Blood Pressure Mean 101 Blood Pressure Mean [Right Arm] Pulse Oximetry 97 98 Oxygen Delivery Method Nasal Cannula Nasal Cannula Nasal Cannula Oxygen Flow Rate 3 3 3 Sepsis Recent Fever Within 48 Hours Yes Sepsis New/Unexplained Change in Mental Status No Sepsis Action Taken by Nursing Physician Notified 01/13/25 17:52 01/13/25 18:02 01/13/25 18:13 Temperature Temperature Source Pulse Rate 109 H Pulse Rate [Apical] 105 H Pulse Rhythm Pulse Rhythm [Apical] Regular Pulse Strength Pulse Strength [Apical] Normal Respiratory Rate 22 Respiratory Effort / Characteristics Non-Labored Non-Labored Spontaneous Respiratory Depth Normal Normal Respiratory Pattern Regular Blood Pressure Blood Pressure [Right Arm] 165/91 H Blood Pressure Mean Blood Pressure Mean [Right Arm] 115 Pulse Oximetry 98 Oxygen Delivery Method Nasal Cannula Nasal Cannula Oxygen Flow Rate 3 3 Sepsis Recent Fever Within 48 Hours Sepsis New/Unexplained Change in Mental Status Sepsis Action Taken by Nursing 01/13/25 18:30 01/13/25 18:53 01/13/25 19:05 Temperature 37.6 C Temperature Source Oral Pulse Rate 100 H 102 H Pulse Rate [Apical] Pulse Rhythm Pulse Rhythm [Apical] Pulse Strength Pulse Strength [Apical] Respiratory Rate 24 24 Respiratory Effort / Characteristics Respiratory Depth Respiratory Pattern Blood Pressure 158/88 H 144/94 H Blood Pressure [Right Arm] Blood Pressure Mean 92 106 Blood Pressure Mean [Right Arm] Pulse Oximetry 97 98 Oxygen Delivery Method Nasal Cannula Nasal Cannula Oxygen Flow Rate 3 3 Sepsis Recent Fever Within 48 Hours Sepsis New/Unexplained Change in Mental Status Sepsis Action Taken by Nursing 01/13/25 19:15 01/13/25 19:30 01/13/25 20:00 Temperature Temperature Source Pulse Rate 98 H 100 H 92 H Pulse Rate [Apical] Pulse Rhythm Pulse Rhythm [Apical] Pulse Strength Pulse Strength [Apical] Respiratory Rate 22 20 24 Respiratory Effort / Characteristics Respiratory Depth Respiratory Pattern Blood Pressure 151/89 H 138/83 119/71 Blood Pressure [Right Arm] Blood Pressure Mean 123 93 81 Blood Pressure Mean [Right Arm] Pulse Oximetry 98 97 97 Oxygen Delivery Method Nasal Cannula Nasal Cannula Nasal Cannula Oxygen Flow Rate 3 2 2 Sepsis Recent Fever Within 48 Hours Sepsis New/Unexplained Change in Mental Status Sepsis Action Taken by Nursing 01/13/25 20:30 Temperature Temperature Source Pulse Rate 85 Pulse Rate [Apical] Pulse Rhythm Pulse Rhythm [Apical] Pulse Strength Pulse Strength [Apical] Respiratory Rate 24 Respiratory Effort / Characteristics Respiratory Depth Respiratory Pattern Blood Pressure 137/76 Blood Pressure [Right Arm] Blood Pressure Mean 95 Blood Pressure Mean [Right Arm] Pulse Oximetry 96 Oxygen Delivery Method Nasal Cannula Oxygen Flow Rate 2 Sepsis Recent Fever Within 48 Hours Sepsis New/Unexplained Change in Mental Status Sepsis Action Taken by Nursing Laboratory Data 01/14/25 06:05 01/13/25 17:36 Lab Results 01/13/25 01/13/25 01/13/25 Range/Units 17:36 17:51 18:12 WBC 10.62 (4.8-10.8) K/ul RBC 4.99 (4.20-5.40) M/uL Hgb 14.9 (12.0-16.0) g/dl Hct 43.2 (37.0-47.0) % MCV 86.6 (80.0-100.0) fL MCH 29.9 (25.0-34.0) pg MCHC 34.5 (32.0-36.0) g/dL RDW Std Deviation 42.2 (36.4-46.3) fL RDW Coeff of Hipolito 13.2 (11.5-14.5) % Plt Count 190 (130-400) K/uL MPV 10.1 (9.4-12.4) fL Immature Gran % (Auto) 0.4 % Neut % (Auto) 85.3 % Lymph % (Auto) 4.5 % Drew % (Auto) 9.5 % Eos % (Auto) 0.0 % Baso % (Auto) 0.3 % Neut # (Auto) 9.06 H (1.40-6.50) K/uL Lymph # (Auto) 0.48 L (1.20-3.40) K/uL Drew # (Auto) 1.01 H (0.11-0.59) K/uL Eos # (Auto) 0.00 (0.00-0.50) K/uL Baso # (Auto) 0.03 (0.00-0.20) K/uL Immature Gran # (Auto) 0.04 (0.01-0.20) K/uL VBG pH 7.42 H (7.36-7.41) VBG pCO2 39 (38-50) mmHg VBG pO2 44 mmHg VBG HCO3 25 mmol/L VBG O2 Saturation 77.2 % VBG Base Excess 0.9 mEq/L Sodium 138 (136-145) mmol/L Potassium 4.1 (3.5-5.1) mmol/L Chloride 104 (98-107) mmol/L Carbon Dioxide 25 (21-32) mmol/L Anion Gap 9 (3-11) BUN 14 (6-23) mg/dl Creatinine 1.03 (0.6-1.2) mg/dl Est Cr Clr Drug Dosing 40.5 ml/min eGFR 53.62 BUN/Creatinine Ratio 13.6 (10-20) Glucose 108 H (70-99(Fasting)) mg/dl Lactate 1.2 (0.4-2.0) mmol/L Calcium 9.5 (8.6-10.3) mg/dl Magnesium 1.8 (1.7-2.4) mg/dl Total Bilirubin 2.9 H (0.2-1.0) mg/dl Direct Bilirubin 1.4 H (0-0.2) mg/dl AST 33 (13-39) U/L ALT 41 (7-52) U/L Alkaline Phosphatase 165 H (34-104) U/L Troponin I High Sens 13.8 (0-14) pg/ml Total Protein 6.6 (6.0-8.3) gm/dl Albumin 3.6 (3.4-5.0) gm/dl Procalcitonin 0.51 H (0-0.5) ng/ml Urine Color Urine Appearance (Clear) Urine pH (4.5-7.5) Ur Specific [place] (1.000-1.030) Urine Protein (Negative) Urine Glucose (UA) (Negative) Urine Ketones (Negative) Urine Blood (Negative) Urine Nitrite (Negative) Urine Bilirubin (Negative) Urine Urobilinogen (Negative) Ur Leukocyte Esterase (Negative) Urine WBC (Auto) (0-5) /hpf Urine RBC (Auto) (0-2) /hpf U Hyaline Cast (Auto) (0-2) /lpf U Epithel Cells (Auto) (0-2) /hpf Urine Bacteria (Auto) (None Seen) Urine Comment Nasal Screen MRSA (PCR) (Negative) Adenovirus (PCR) Not Detected (NotDetected) B. pertussis DNA (PCR) Not Detected (NotDetected) B.parapertussis DNA PCR Not Detected (NotDetected) C. pneumoniae DNA (PCR) Not Detected (NotDetected) Coronavirus OC43 (PCR) Not Detected (NotDetected) Coronavirus HKU1 (PCR) Not Detected (NotDetected) Coronavirus 229E (PCR) Not Detected (NotDetected) SARS-CoV-2 (PCR) Not Detected (NotDetected) Coronavirus NL63 (PCR) Not Detected (NotDetected) Enterobacterales (PCR) DETECTED A (NotDetected) E. coli (PCR) DETECTED A (NotDetected) Human Metapneumovir PCR Not Detected (NotDetected) Influenza Type A (PCR) Not Detected (NotDetected) Influenza Type B (PCR) Not Detected (NotDetected) M. pneumoniae (PCR) Not Detected (NotDetected) Parainfluenza 1 (PCR) Not Detected (NotDetected) Parainfluenza 2 (PCR) Not Detected (NotDetected) Parainfluenza 3 (PCR) Not Detected (NotDetected) Parainfluenza 4 (PCR) Not Detected (NotDetected) RSV (PCR) Not Detected (NotDetected) Entero/Rhino (PCR) Not Detected (NotDetected) mcr-1 Colistin Res Gene PCR Not Detected (NotDetected) blaIMP Car res Gene PCR Not Detected (NotDetected) KPC-Carbap Res Gene PCR Not Detected (NotDetected) blaNDM Car Res Gene PCR Not Detected (NotDetected) OXA-48 Carbapenem Resis Gene (PCR) Not Detected (NotDetected) blaVIM Car Res Gene PCR Not Detected (NotDetected) CTX-M Gene Resistance (PCR) Not Detected (NotDetected) Bld Cult ID Panel PCR See PCR Comment (NotDetected) 01/13/25 01/13/25 Range/Units 18:55 19:55 WBC (4.8-10.8) K/ul RBC (4.20-5.40) M/uL Hgb (12.0-16.0) g/dl Hct (37.0-47.0) % MCV (80.0-100.0) fL MCH (25.0-34.0) pg MCHC (32.0-36.0) g/dL RDW Std Deviation (36.4-46.3) fL RDW Coeff of Hipolito (11.5-14.5) % Plt Count (130-400) K/uL MPV (9.4-12.4) fL Immature Gran % (Auto) % Neut % (Auto) % Lymph % (Auto) % Drew % (Auto) % Eos % (Auto) % Baso % (Auto) % Neut # (Auto) (1.40-6.50) K/uL Lymph # (Auto) (1.20-3.40) K/uL Drew # (Auto) (0.11-0.59) K/uL Eos # (Auto) (0.00-0.50) K/uL Baso # (Auto) (0.00-0.20) K/uL Immature Gran # (Auto) (0.01-0.20) K/uL VBG pH (7.36-7.41) VBG pCO2 (38-50) mmHg VBG pO2 mmHg VBG HCO3 mmol/L VBG O2 Saturation % VBG Base Excess mEq/L Sodium (136-145) mmol/L Potassium (3.5-5.1) mmol/L Chloride (98-107) mmol/L Carbon Dioxide (21-32) mmol/L Anion Gap (3-11) BUN (6-23) mg/dl Creatinine (0.6-1.2) mg/dl Est Cr Clr Drug Dosing ml/min eGFR BUN/Creatinine Ratio (10-20) Glucose (70-99(Fasting)) mg/dl Lactate (0.4-2.0) mmol/L Calcium (8.6-10.3) mg/dl Magnesium (1.7-2.4) mg/dl Total Bilirubin (0.2-1.0) mg/dl Direct Bilirubin (0-0.2) mg/dl AST (13-39) U/L ALT (7-52) U/L Alkaline Phosphatase (34-104) U/L Troponin I High Sens (0-14) pg/ml Total Protein (6.0-8.3) gm/dl Albumin (3.4-5.0) gm/dl Procalcitonin (0-0.5) ng/ml Urine Color Dark Yellow Urine Appearance Turbid A (Clear) Urine pH 7.5 (4.5-7.5) Ur Specific [place] 1.010 (1.000-1.030) Urine Protein 2+ H (Negative) Urine Glucose (UA) Negative (Negative) Urine Ketones Negative (Negative) Urine Blood 2+ H (Negative) Urine Nitrite Positive A (Negative) Urine Bilirubin Negative (Negative) Urine Urobilinogen Negative (Negative) Ur Leukocyte Esterase 3+ H (Negative) Urine WBC (Auto) >50 H (0-5) /hpf Urine RBC (Auto) 6-10 H (0-2) /hpf U Hyaline Cast (Auto) 0-2 (0-2) /lpf U Epithel Cells (Auto) 0-2 (0-2) /hpf Urine Bacteria (Auto) 4+ H (None Seen) Urine Comment Nasal Screen MRSA (PCR) Negative (Negative) Adenovirus (PCR) (NotDetected) B. pertussis DNA (PCR) (NotDetected) B.parapertussis DNA PCR (NotDetected) C. pneumoniae DNA (PCR) (NotDetected) Coronavirus OC43 (PCR) (NotDetected) Coronavirus HKU1 (PCR) (NotDetected) Coronavirus 229E (PCR) (NotDetected) SARS-CoV-2 (PCR) (NotDetected) Coronavirus NL63 (PCR) (NotDetected) Enterobacterales (PCR) (NotDetected) E. coli (PCR) (NotDetected) Human Metapneumovir PCR (NotDetected) Influenza Type A (PCR) (NotDetected) Influenza Type B (PCR) (NotDetected) M. pneumoniae (PCR) (NotDetected) Parainfluenza 1 (PCR) (NotDetected) Parainfluenza 2 (PCR) (NotDetected) Parainfluenza 3 (PCR) (NotDetected) Parainfluenza 4 (PCR) (NotDetected) RSV (PCR) (NotDetected) Entero/Rhino (PCR) (NotDetected) mcr-1 Colistin Res Gene PCR (NotDetected) blaIMP Car res Gene PCR (NotDetected) KPC-Carbap Res Gene PCR (NotDetected) blaNDM Car Res Gene PCR (NotDetected) OXA-48 Carbapenem Resis Gene (PCR) (NotDetected) blaVIM Car Res Gene PCR (NotDetected) CTX-M Gene Resistance (PCR) (NotDetected) Bld Cult ID Panel PCR (NotDetected) Administered Medications Bupropion HCl (Bupropion Xl 300 Mg Tabcr) 300 mg PO QAM [facility] Stop: 02/13/25 08:59 Last Admin: 01/14/25 08:58 Dose: Not Given Documented By: ANTONI Buspirone HCl (Buspirone 5 Mg Tab) 10 mg PO BID BURAK Stop: 02/13/25 08:59 Last Admin: 01/14/25 08:58 Dose: Not Given Documented By: ANTONI Fluticasone Furoate (Fluticasone Furoate 200mcg 14 Puffs/Inhaler) 1 puffs INH DAILY BURAK Stop: 02/13/25 08:59 Last Admin: 01/14/25 09:02 Dose: 1 puffs Documented By: ANTONI Lisinopril (Lisinopril 10 Mg Tab) 10 mg PO DAILY BURAK Stop: 02/13/25 08:59 Last Admin: 01/14/25 08:59 Dose: 10 mg Documented By: ANTONI Miscellaneous (Check Buprenorphine Patch) 1 each N/A QS [facility] Stop: 02/13/25 00:00 Last Admin: 01/14/25 09:03 Dose: 1 each Documented By: Admin: 01/14/25 00:26 Dose: 1 each Documented By: OLIVIER Ondansetron HCl (Ondansetron Inj 2 Mg/Ml 2 Ml Vial) 4 mg IV Q6H PRN PRN Reason: Nausea Stop: 02/12/25 22:22 Last Admin: 01/14/25 09:53 Dose: 4 mg Documented By: ANTONI Spironolactone (Spironolactone 25 Mg Tab) 25 mg PO DAILY [facility] Stop: 02/13/25 08:59 Last Admin: 01/14/25 08:59 Dose: 25 mg Documented By: ANTONI Umeclidinium/Vilanterol (Umeclidinium/Vilanterol 62.5/25mcg 7 Puffs/Inhaler) 1 puffs INH DAILY [facility] Stop: 02/13/25 08:59 Last Admin: 01/14/25 09:00 Dose: 1 puffs Documented By: KARINE Discontinued Medications Parenteral Electrolytes (Plasma-Lyte A Ph 7.4) 1,000 mls @ 999 mls/hr IV .Q1H1M ONE Stop: 01/13/25 18:41 Last Infusion: 01/13/25 18:59 Dose: Infused Documented By: dulce Admin: 01/13/25 17:58 Dose: 999 mls/hr Documented By: dulce Ceftriaxone Sodium (Rocephin) 2,000 mg in 50 mls @ 100 mls/hr IV NOW STA Stop: 01/13/25 18:30 Last Infusion: 01/13/25 19:20 Dose: Infused Documented By: dulce Admin: 01/13/25 18:54 Dose: 100 mls/hr Documented By: dulce Promethazine HCl (Phenergan) 6.25 mg in 50.25 mls @ 201 mls/hr IV NOW STA Stop: 01/14/25 12:46 Last Infusion: 01/14/25 13:24 Dose: Infused Documented By: Admin: 01/14/25 12:57 Dose: 201 mls/hr Documented By: ANTONI Ioversol (Optiray 320 100ml) 90 ml IV ONCE ONE Stop: 01/13/25 19:43 Last Admin: 01/13/25 19:43 Dose: 90 ml Documented By: ALLAN Ketorolac Tromethamine (Ketorolac Tromethamine 15 Mg/Ml Vial) 15 mg IV NOW STA Stop: 01/13/25 17:42 Last Admin: 01/13/25 17:58 Dose: 15 mg Documented By: dulce Imaging Data Radiologist's Impression: Chest X-Ray 01/13/25 17:41 Clinical History: Sepsis Technique: 2 frontal views of the chest were obtained Comparison is made to the prior examination dated 03/29/2024 Findings: There are no definite pulmonary infiltrates. The heart size is within normal limits. No pleural effusion or pneumothorax is seen. No fracture is noted. There is thoracic scoliosis and degenerative disc disease. There are stimulatory leads in the spinal canal Impression: No active disease Electronically signed by Andrés Castillo 01-13-2025 7:00 PM Abdomen/Pelvis CT 01/13/25 18:50 CT of the abdomen pelvis with contrast Technique: Postcontrast axial images of the abdomen pelvis. Coronal and sagittal reformatted images made available for review Comparison made with prior exam dated 05/24/2022 Findings: Diffuse changes COPD. 1.2 cm left renal cyst. Remaining solid abdominal organs unremarkable appearance. No free air or intestinal obstruction. There is wall thickening involving the a urinary bladder which is under distended. Findings represent cystitis in appropriate clinical setting. Diffuse vascular calcifications. Postoperative changes as L1-S2 interbody fusion. Impression Circumferential wall thickening of the urinary bladder which may represent cystitis in appropriate clinical setting. Correlate with urinalysis recommended. Clinical correlation recommended Electronically signed by Daniel Donis 01-13-2025 9:12 PM Discharge Plan Visit Data Chief Complaint: Shortness of Breath/Dyspnea Stated Complaint: SOB, NAUSEA, AB PAIN ED Provider: Mendez Reynoso Discharge Problem: Sepsis, Elevated bilirubin, Acute UTI (urinary tract infection), Chronic hypoxemic respiratory failure Patient Disposition: Admitted As Inpatient Condition: Serious Discharge Instructions Interventions: ED Discharge Assessment Last Done: 01/13/25 21:52
[2025-01-13 18:03] LABS: Base Excess VBG 0.9 mEq/L; HCO3 VBG 25 mmol/L; Oxygen Saturation VBG 77.2 %; PCO2 VBG 39 mmHg (38-50); PO2 VBG 44 mmHg; pH VBG 7.42 (7.36-7.41)
[2025-01-13 18:43] LABS: Anion Gap 9.0 (3-11); Magnesium 1.8 mg/dl (1.7-2.4); Potassium 4.1 mmol/L (3.5-5.1); Sodium 138.0 mmol/L (136-145)
[2025-01-13 18:44] LABS: Alanine Aminotransferase 41.0 U/L (7-52); Albumin Level 3.6 gm/dl (3.4-5.0); Alkaline Phosphatase 165.0 U/L (34-104); Bilirubin,Total 2.9 mg/dl (0.2-1.0); Blood Urea Nitrogen 14.0 mg/dl (6-23); Calcium 9.5 mg/dl (8.6-10.3); Carbon Dioxide 25.0 mmol/L (21-32); Chloride 104.0 mmol/L (98-107); Creatinine Clr Calc Pharmacy 40.5 ml/min; Glucose 108.0 mg/dl (70-99(Fasting)); Total Protein 6.6 gm/dl (6.0-8.3)
[2025-01-13] MEDS: cefTRIAXone SODIUM 2,000 MG/50 ML BAG IV STA (18:54)
[2025-01-13 19:01] LABS: Chlamydia pneumoniae PCR Not Detected (NotDetected); Coronavirus 229E PCR Not Detected (NotDetected); Coronavirus CoV-2 (COVID19)PCR Not Detected (NotDetected); Coronavirus HKU1 PCR Not Detected (NotDetected); Coronavirus NL63 PCR Not Detected (NotDetected); Coronavirus OC43PCR Not Detected (NotDetected); Human Metapneumovirus PCR Not Detected (NotDetected); Parainfluenza Virus 1 PCR Not Detected (NotDetected); Parainfluenza Virus 2 PCR Not Detected (NotDetected); Parainfluenza Virus 3 PCR Not Detected (NotDetected); Parainfluenza Virus 4 PCR Not Detected (NotDetected); Respiratory Syncytial VirusPCR Not Detected (NotDetected); Rhinovirus/Enterovirus PCR Not Detected (NotDetected)
--- NOTE | 2025-01-13 19:01 | XRay Report ---
Clinical History: Sepsis Technique: 2 frontal views of the chest were obtained Comparison is made to the prior examination dated 03/29/2024 Findings: There are no definite pulmonary infiltrates. The heart size is within normal limits. No pleural effusion or pneumothorax is seen. No fracture is noted. There is thoracic scoliosis and degenerative disc disease. There are stimulatory leads in the spinal canal Impression: No active disease Electronically signed by Andrés Castillo 01-13-2025 7:00 PM
[2025-01-13 19:11] LABS: Appearance Urine Turbid (Clear); Bacteria Urine Automated 4+ (None Seen); Cast Urine Automated 0-2 /lpf (0-2); Epithelial Cell Urine Auto 0-2 /hpf (0-2); Glucose Urine UA Negative (Negative); WBC Urine Automated >50 /hpf (0-5)
[2025-01-13] MEDS: OPTIRAY 320 100ml IV ONE (19:43)
--- NOTE | 2025-01-13 20:42 | History & Physical Report ---
Date of Service January 13, 2025 Assessment & Plan (1) UTI (urinary tract infection): (2) Elevated bilirubin: (3) Elevated alkaline phosphatase level: Plan 84-year-old female PMHx COPD, HTN, spinal stenosis, HLD, prior SBO, depression and anxiety, and chronic pain with spinal nerve stimulator presenting for generalized weakness starting 2 days [employer]. Her workup is significant for elevated bilirubin at 2.9, drug bilirubin 1.4, and alkaline phosphatase at 165. Her procalcitonin is slightly increased at 0.51, normal lactate. UA suspicious for infection. Pending CTAP read. Admission for IV antibiotics. #UTI Symptoms of weakness, no other real symptoms. Was having some urinary retention, has been able to urinate since initially experiencing. Seen by PCP 01/11/2025 for urinary retention and hesitancy, was awaiting results, no treatment started at that time. No prior history of Pseudomonas. Did have fever at time of arrival to ED, 38.8C and has been mildly tachycardic, in setting of normal WBC and lactate. Received 1L plasma-lyte in ED. Admission for IV abx. - CBC without leukocytosis or leukopenia; CMP creatinine 1.03, BUN 14; lactate 1.2; procalcitonin 0.51 - CBC am - UA suspicious for infection; pending cx - CTAP circumferential wall thickening of urinary bladder, cystitis - Bladder scan, pending PVR - Zofran prn N/V - Acetaminophen prn fever/pain - Continue to encourage oral fluid intake -- add IVF as appropriate - Ceftriaxone 2g IV - continue #Elevated bilirubin + alkaline phosphatase No abdominal pain, N/V/D/C. No tenderness to palpation on abdominal exam, negative Taylor's sign. - Total bili 2.9, direct bili 1.4, alk phos 165 - CTAP without findings concerning for liver/GB - Without any tenderness or abdominal pain - continue to monitor #HTN- Lisinopril, spironolactone - continue #COPD- 2L O2 via NC HS, none at baseline normally; CXR no active disease; Ventolin prn, Breztri, DuoNeb prn - continue #Chronic pain- Buprenorphine patch weekly - continue normal scheduled dosing #Psych- Bupropion, buspirone - continue Dispo: Admit, med/sx VTE Prophylaxis: SCDs This document was dictated utilizing [employer]. Please excuse any grammatical errors that may be secondary to use of this software. Admission and Anticipated Discharge Date Admission Date: 01/13/2025 History of Present Illness Chief Complaint: Weakness Primary Care Provider: Tana Ramsey MD 84-year-old female PMHx COPD, HTN, spinal stenosis, HLD, prior SBO, depression and anxiety, and chronic pain with spinal nerve stimulator presenting for generalized weakness starting 2 days [employer]. Pt reports that over the past 8 years, she has started to develop UTIs and she can normally just "tell when she has one." Reports that 2 days [employer] she had a "fast" onset of feeling ill, unable to specify further what felt not right but just knew something was "off." States that within 1.5 hours of feeling sick, she was able to contact her PCP and have a sick visit with them. She reports giving a urine sample that was "lost" so she never got the results of this. She was not started on any treatment. She was having retention and hesitancy at that time. This continued into the day of arrival, with generalized weakness worsening since that time. She states she did not take her temperature but thinks she may have felt warm. No chills. She has chronic breathing "problems", uses oxygen at baseline (2L O2 via NC, mainly at HS). She has not had worsening SOB or cough. Denies CP, SOB, palpitations, abdominal pain, N/V/D/C, numbness/tingling, URI symptoms, F/C, ongoing LUTS, syncope, or falls. ED evaluation reveals CBC without leukocytosis or leukopenia, stable H&H; VBG's pH 7.42; CMP glucose 108, bilirubin 2.9, direct bilirubin 1.4, alkaline phosphatase 165; lactate 1.2; procalcitonin 0.51; UA suspicious for infection; BioFire negative; MRSA pending; CXR no active disease; CTAP possible cystitis; EKG sinus tachycardia at 114 bpm.; Provided with Plasma-Lyte 1L, ketorolac 15 mg IV, and ceftriaxone 2 g IV in ED. Please see Dr. Servin attestation for adjustments/additions to treatment plan. Allergies Allergy/AdvReac Type Severity Reaction Status Date / Time ciprofloxacin Allergy Intermediate Redness Verified 01/11/25 11:10 ("along vein") nitrofurantoin Allergy Intermediate SOB, N/V Verified 01/11/25 11:12 [From Macrobid] atorvastatin AdvReac Intermediate Muscle pain Verified 01/11/25 10:38 simvastatin AdvReac Intermediate Muscle pain Verified 01/11/25 10:38 Home Medications Medication Instructions Recorded Confirmed Type nebulizers (Aeroneb Go Nebulizer) #1 ea 09/26/20 01/11/25 Rx Incentive Spirometer #1 ea 12/13/21 01/11/25 Rx nebulizer accessories #2 ea 12/11/22 01/11/25 Rx bupropion HCl 300 mg 24 hr tablet, 300 mg PO QAM 12/01/23 01/13/25 History extended release lisinopril 10 mg tablet 10 mg PO DAILY #90 tabs 05/30/24 01/13/25 Rx albuterol sulfate 90 mcg/actuation 2 puff inhalation Q6H PRN 09/30/24 01/13/25 Rx aerosol inhaler Shortness Of Breath Or Wheezing #18 grams budesonide 160 mcg-glycopyr 9 2 inh inhalation BID #10.7 grams 10/31/24 01/13/25 Rx mcg-formot 4.8 mcg/actuation HFA inhaler (Breztri Aerosphere) buspirone 10 mg tablet 10 mg PO BID 11/10/24 01/13/25 History buprenorphine 20 mcg/hour weekly 1 patch transdermal Q7D #4 ea 12/19/24 01/13/25 Rx transdermal patch ipratropium 0.5 mg-albuterol 3 mg 3 ml inhalation Q8H PRN shortness 01/12/25 01/13/25 Rx (2.5 mg base)/3 mL nebulization of breath or wheezing #180 mL soln spironolactone 25 mg tablet 25 mg PO DAILY 01/13/25 01/13/25 History Past Med/Surg History Problem List (Updated 01/14/25 @ 16:29 by Mendez Reynoso DO) Chronic hypoxemic respiratory failure (Acute) Acute UTI (urinary tract infection) (Acute) Elevated bilirubin (Acute) Sepsis (Acute) Essential hypertension COPD (chronic obstructive pulmonary disease) Bacteremia due to Gram-negative bacteria Elevated bilirubin Chronic knee pain after total replacement of right knee joint Anxiety with depression COPD with exacerbation Enteritis Small bowel obstruction Chronic SI joint pain Weakness of hip Right knee pain Kyphosis of thoracolumbar 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 Lumbar post-laminectomy syndrome Cerebrovascular disease Stroke-like symptoms Palpitations Family history of colon cancer Depression (Chronic) Vitamin D deficiency disease (Chronic) Statin intolerance (Chronic) Spinal stenosis (Chronic) Sleep disturbance (Chronic) Pulmonary nodule COPD with emphysema Dyspnea on exertion Facet arthritis of lumbar region DVT prophylaxis (Acute) Current smoker Lumbar disc herniation with radiculopathy Back pain (Acute) Recurrent falls Sensorineural hearing loss of both ears PAD (peripheral artery disease) Atherosclerosis of abdominal aorta Dyslipidemia Left thyroid nodule CT scan 08/30/2021- 1.9 cm Postlaminectomy syndrome of lumbosacral region (Acute) Nocturnal hypoxia Preventative health care Insomnia Left inguinal hernia S/P insertion of spinal cord stimulator Colon cancer screening Hypoxia (Acute) H/O deep venous thrombosis LLE > s/p surgery, Eliquis since DC'ed Prediabetes (Chronic) Hearing decreased (Chronic) Gait disturbance (Chronic) PAC (premature atrial contraction) Tinnitus, bilateral Intermittent Mixed conductive and sensorineural hearing loss of left ear with restricted hearing of right ear Pulmonary hypertension RVSP elevated at 30 to 40 mmHg per 2019 echo Osteoporosis (Chronic) Multiple pulmonary nodules Under surveillance Lesion of right campo kidney (Chronic) Per records, pt unaware Hypertension (Chronic) Chronic back pain Stenosis of iliac artery (Chronic) Medical History Myalgia due to HMG CoA reductase inhibitor Nausea Aspiration into airway Pelvic pain Acute respiratory failure with hypoxia COPD exacerbation Dehydration History of anesthesia reaction at [facility] > after long surgery on spine, "took a while to come off ventilator" not sure of specific details > in "early" 2022 Spinal cord stimulator status instructed to bring remote dos Nocturnal hypoxia History of COVID-19 10/2021- denies having any symptoms History of UTI Degenerative disc disease Spinal stenosis Hx of deep venous thrombosis LLE (post-op back surgery) > 03/2020, was on Eliquis x few months after event Hyperlipidemia Peripheral arterial disease Dysfunction of left eustachian tube Right shoulder pain Gastrointestinal complaint Localized swelling of both lower legs Cirrhosis Asymptomatic bacteriuria Sciatica On home oxygen therapy Nocturnal hypoxia > no longer using 02 at home Osteoarthritis History of breast cancer Left s/p surgery- partial mastectomy LUE limb restriction COPD (chronic obstructive pulmonary disease) Follows with [facility] pulmonary Chronic respiratory failure with hypoxia Anxiety and depression "gets severe anxiety" Intermittent claudication Breast cancer (12/26/13) "Abnormal left breast mammogram Status post ultrasound-guided biopsies 10/06/2013 that revealed benign status post left breast excisional biopsy 12/02/2013 revealing infiltrating ductal carcinoma estrogen receptor positive, progesterone receptor positive, 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 Status post lumbar spine operative procedure for decompression of spinal cord History of right knee joint replacement History of D&C History of colonoscopy History of tooth extraction History of cataract surgery R/L History of breast biopsy H/O lumbosacral spine surgery S/P breast lumpectomy Left Family History Daughter Breast cancer Diabetes Mother Aortic aneurysm Renal failure Brother Prostate cancer Aortic aneurysm Father Aortic aneurysm Pure hypercholesterolemia Hypertension Grandmother (Maternal) Colon cancer Unknown Diabetes Other No family history of adverse response to anesthesia Denies family history of Ovarian cancer Myocardial infarction Social History Smoking Status: Never smoker Tobacco Type: Cigarettes Age Started Using Tobacco: 18; Age Quit Using Tobacco: 78; packs per day: 1; Cigarettes Per Day: ppd; Second Hand Exposure: No; Do You Dip or Chew Tobacco: No; Tobacco Cessation Education Requested by Patient: No Hx Alcohol Use: No Hx Substance Use: No Preferred Language: Slovak Communication Ability: Effective Visual Impairment: No Limitations Vegetable Preparer Required: No Beliefs That Will Affect Care: None marital status: / Current Living Situation: Alone 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 How many Children do You have: 5 Other Information That Helps Us Care for You: No Feels Safe at Home: Yes Safety Concerns: Feels Safe At This Time Diet: regular during the past year weight has: increased > 10 lbs Seatbelt Use: sometimes Assistive Devices: Glasses, Hearing Aid - Bilateral, Oxygen - at Night, Oxygen - Continuous and Walker Assistive Devices Comment: Uses o2 as needed Review of Systems Review of Systems: All systems reviewed & are unremarkable except as noted in Subjective Physical Exam Physical Exam: General: No acute distress Skin: Warm and dry Head: Normocephalic, atraumatic Eyes: PERRL, conjunctivae clear, sclera non-icteric ENT: External ear and ear canal without swelling, [place]; nose atraumatic; good dentition, tongue normal appearance, pharynx normal Neck: Supple, no LAD Cardio: Borderline tachycardic in low 90s, regular rhythm, no M/G/R, S1 and S2 normal Resp: O2 via NC; No respiratory distress, Lungs CTA in all lobes bilaterally, no wheezes, rales, or rhonchi Abdomen: Soft, symmetric, nontender; Taylor's negative; No masses or hepatosplenomegaly; Bowel sounds normoactive MSK: No deformities; pulses palpable and equal; no edema. Neuro: Awake, alert; Sensation intact bilaterally; CN grossly intact Psych: Appropriate mood and affect; good judgement and insight. Results & Data Results & Data Vital Signs (Past 12 Hours) Vital Signs Temp Pulse Pulse Resp BP BP Pulse Ox 01/13/25 20:00 92 H 24 119/71 97 01/13/25 19:30 100 H 20 138/83 97 01/13/25 19:15 98 H 22 151/89 H 98 01/13/25 19:05 37.6 C 01/13/25 18:53 102 H 24 144/94 H 98 01/13/25 18:30 100 H 24 158/88 H 97 01/13/25 18:13 01/13/25 18:02 105 H 22 165/91 H 98 01/13/25 17:52 109 H 01/13/25 17:40 103 H 22 98 01/13/25 17:40 01/13/25 17:28 38.8 C H 115 H 22 125/89 97 O2 Del Method O2 Flow Rate 01/13/25 20:00 Nasal Cannula 2 01/13/25 19:30 Nasal Cannula 2 01/13/25 19:15 Nasal Cannula 3 01/13/25 19:05 01/13/25 18:53 Nasal Cannula 3 01/13/25 18:30 Nasal Cannula 3 01/13/25 18:13 Nasal Cannula 3 01/13/25 18:02 Nasal Cannula 3 01/13/25 17:52 01/13/25 17:40 Nasal Cannula 3 01/13/25 17:40 Nasal Cannula 3 01/13/25 17:28 Nasal Cannula 3 Laboratory Results 01/13/25 18:55 Urine Culture - Pending Urine,Clean Catch 01/13/25 18:12 Aerobic Blood Culture - Pending Blood Anaerobic Blood Culture - Pending 01/13/25 18:12 Aerobic Blood Culture - Pending Blood Anaerobic Blood Culture - Pending 01/13/25 01/13/25 01/13/25 18:55 17:51 17:36 WBC 10.62 RBC 4.99 Hgb 14.9 Hct 43.2 MCV 86.6 MCH 29.9 MCHC 34.5 RDW Std Deviation 42.2 RDW Coeff of [place]ol[place] 13.2 Plt Count 190 MPV 10.1 Immature Gran % (Auto) 0.4 Neut % (Auto) 85.3 Lymph % (Auto) 4.5 [place] % (Auto) 9.5 Eos % (Auto) 0.0 Baso % (Auto) 0.3 Neut # (Auto) 9.06 H Lymph # (Auto) 0.48 L [place] # (Auto) 1.01 H Eos # (Auto) 0.00 Baso # (Auto) 0.03 Immature Gran # (Auto) 0.04 VBG pH 7.42 H VBG pCO2 39 VBG pO2 44 VBG HCO3 25 VBG O2 Saturation 77.2 VBG Base Excess 0.9 Sodium 138 Potassium 4.1 Chloride 104 Carbon Dioxide 25 Anion Gap 9 BUN 14 Creatinine 1.03 Est Cr Clr Drug Dosing 40.5 eGFR 53.62 BUN/Creatinine Ratio 13.6 Glucose 108 H Lactate 1.2 Calcium 9.5 Magnesium 1.8 Total Bilirubin 2.9 H Direct Bilirubin 1.4 H AST 33 ALT 41 Alkaline Phosphatase 165 H Troponin I High Sens 13.8 Total Protein 6.6 Albumin 3.6 Procalcitonin 0.51 H Urine Color Dark Yellow Urine Appearance Turbid A Urine pH 7.5 Ur Specific [place] 1.010 Urine Protein 2+ H Urine Glucose (UA) Negative Urine Ketones Negative Urine Blood 2+ H Urine Nitrite Positive A Urine Bilirubin Negative Urine Urobilinogen Negative Ur Leukocyte Esterase 3+ H Urine WBC (Auto) >50 H Urine RBC (Auto) 6-10 H U Hyaline Cast (Auto) 0-2 U Epithel Cells (Auto) 0-2 Urine Bacteria (Auto) 4+ H Urine Comment Adenovirus (PCR) Not Detected B. pertussis DNA (PCR) Not Detected B.parapertussis DNA PCR Not Detected C. pneumoniae DNA (PCR) Not Detected Coronavirus OC43 (PCR) Not Detected Coronavirus HKU1 (PCR) Not Detected Coronavirus 229E (PCR) Not Detected SARS-CoV-2 (PCR) Not Detected Coronavirus NL63 (PCR) Not Detected Human Metapneumovir PCR Not Detected Influenza Type A (PCR) Not Detected Influenza Type B (PCR) Not Detected M. pneumoniae (PCR) Not Detected Parainfluenza 1 (PCR) Not Detected Parainfluenza 2 (PCR) Not Detected Parainfluenza 3 (PCR) Not Detected Parainfluenza 4 (PCR) Not Detected RSV (PCR) Not Detected Entero/Rhino (PCR) Not Detected Diagnostic Findings Chest X-Ray 01/13/25 17:41 Clinical History: Sepsis Technique: 2 frontal views of the chest were obtained Comparison is made to the prior examination dated 03/29/2024 Findings: There are no definite pulmonary infiltrates. The heart size is within normal limits. No pleural effusion or pneumothorax is seen. No fracture is noted. There is thoracic scoliosis and degenerative disc disease. There are stimulatory leads in the spinal canal Impression: No active disease Electronically signed by Andrés Castillo 01-13-2025 7:00 PM Medications Administered Plasma-Lyte 1L Ketorolac 15 mg IV Ceftriaxone 2 g IV ECG Additional Comments: Sinus tachycardia 114 bpm, [place] 154, QRS 82, QT/QTc 304/419, PRT 81/84/74 Supervising Physician Co-Signing Physician Notes Attending addendum: I have physically seen this patient, have supervised the BEBETO's activities, and agree with the H&P unless as otherwise noted. Assessment and Plan: The patient is an 84-year-old female with past medical history including COPD, hypertension, spinal stenosis, hyperlipidemia, prior SBO, depression and anxiety, and chronic pain with spinal nerve stimulator. She presents to the emergency department with generalized weakness starting today prior to arrival. Urinalysis is suggestive of UTI, and patient will be admitted to medical floor for IV antibiotics. Urinary tract infection- Follow urine culture and sensitivity CT scan abdomen and pelvis with circumferential wall thickening of the urinary bladder suggesting cystitis Bladder scan with PVR Ceftriaxone 2 g IV every 24 hours, with first dose given in ED Zofran 4 mg IV every 6 hours as needed Acetaminophen 650 mg p.o. every 6 hours as needed for mild pain or fever IV fluids and oral fluid intake as noted Elevated bilirubin and alkaline phosphatase- CT scan of abdomen pelvis without significant findings No significant findings on physical examination Follow serial laboratories If labs worsen or develop symptoms, may need an MRCP Hypertension- Continue lisinopril and spironolactone Chronic pain syndrome- Buprenorphine patch weekly Remaining orders and notations as noted PG Care Time/CCT Total # of Minutes Spent Total Time Spent with Patient: Total time spent is greater than 50% in coordination of care (as documented) at patient's floor/unit and/or counseling patient: Coding Level of Care Code 28695 INT INP/OBS CARE MIN Diagnoses Acute cystitis without hematuria N30.00 Hematuria presence: without hematuria Urinary tract infection type: acute cystitis Elevated bilirubin R17 Elevated alkaline phosphatase level R74.8 (1) UTI (urinary tract infection) Hematuria presence: without hematuria Urinary tract infection type: acute cystitis Qualified Code(s): N30.00 - Acute cystitis without hematuria
--- NOTE | 2025-01-13 21:13 | CT Scan Report ---
CT of the abdomen pelvis with contrast Technique: Postcontrast axial images of the abdomen pelvis. Coronal and sagittal reformatted images made available for review Comparison made with prior exam dated 05/24/2022 Findings: Diffuse changes COPD. 1.2 cm left renal cyst. Remaining solid abdominal organs unremarkable appearance. No free air or intestinal obstruction. There is wall thickening involving the a urinary bladder which is under distended. Findings represent cystitis in appropriate clinical setting. Diffuse vascular calcifications. Postoperative changes as L1-S2 interbody fusion. Impression Circumferential wall thickening of the urinary bladder which may represent cystitis in appropriate clinical setting. Correlate with urinalysis recommended. Clinical correlation recommended Electronically signed by Daniel Donis 01-13-2025 9:12 PM
[2025-01-13] MEDS ORDERED: ALBUTEROL HFA 8 GM INHALER INH PRN (22:23)
[2025-01-13] MEDS ORDERED: MELATONIN 3 MG TAB PO PRN (22:23)
[2025-01-13] MEDS ORDERED: ALBUT/IPRATROP 3MG/0.5MG NEB 3 ML VIAL INH PRN (22:23)
[2025-01-13] MEDS ORDERED: POLYETHYLENE (MIRALAX) 17 GM PACK PO PRN (22:23)
[2025-01-14] MEDS: CHECK BUPRENORPHINE PATCH SCH (00:26)
[2025-01-14 06:33] LABS: Hematocrit (blood only) 36.5 % (37.0-47.0); Hemoglobin 12.1 g/dl (12.0-16.0); Mean Corpuscular Hemoglobin 28.7 pg (25.0-34.0); Mean Corpuscular Volume 86.5 fL (80.0-100.0); Platelet Count 152 K/uL (130-400); RDW Standard Deviation 42.4 fL (36.4-46.3); Red Blood Count 4.22 M/uL (4.20-5.40); White Blood Count 13.97 K/ul (4.8-10.8)
[2025-01-14 07:18] LABS: Alanine Aminotransferase 27.0 U/L (7-52); Albumin Level 3.1 gm/dl (3.4-5.0); Alkaline Phosphatase 137.0 U/L (34-104); Bilirubin,Total 1.2 mg/dl (0.2-1.0); Total Protein 5.5 gm/dl (6.0-8.3)
[2025-01-14] MEDS: busPIRone 5 MG TAB PO SCH (08:58)
[2025-01-14] MEDS: SPIRONOLACTONE 25 MG TAB PO SCH (08:59)
[2025-01-14] MEDS: UMECLIDINIUM/VILANTEROL 62.5/25MCG 7 PUFFS/INHALER INH SCH (09:00)
[2025-01-14] MEDS ORDERED: NON-FORMULARY MEDICATION (Budesonide-Glycopyr-Formoterol [Breztri Aerosphere] 160-9-4.8 mc INH SCH (09:00)
[2025-01-14] MEDS: FLUTICASONE FUROATE 200MCG 14 PUFFS/INHALER INH SCH (09:02)
[2025-01-14 09:35] LABS: A calco-baum cmplx NotReported Not Detected (NotDetected); Bact fragilis Not Reported Not Detected (NotDetected); Blood Culture Id Panel See PCR Comment (NotDetected); C auris Not Reported Not Detected (NotDetected); CTX-M Resistant Gene Not Detected (NotDetected); Calbicans Not Reported Not Detected (NotDetected); Candida glabrata Not Reported Not Detected (NotDetected); Candida krusei Not Reported Not Detected (NotDetected); Cneoformans/gatti Not Reported Not Detected (NotDetected); Cparapsilosis Not Reported Not Detected (NotDetected); Ctropicalis Not Reported Not Detected (NotDetected); E cloacae compx Not Reported Not Detected (NotDetected); Efaecalis Not Reported Not Detected (NotDetected); Efaecium Not Reported Not Detected (NotDetected); Enterobacterales Not Reported DETECTED (NotDetected); Escherichia coli Not Reported DETECTED (NotDetected); H influenzae Not Reported Not Detected (NotDetected); IMP Resistant Gene Not Detected (NotDetected); K aerogenes Not Reported Not Detected (NotDetected); KPC Resistant Gene Not Detected (NotDetected); Koxytoca Not Reported Not Detected (NotDetected); Kpneumoniae grp Not Reported Not Detected (NotDetected); Lmonocyt Not Reported Not Detected (NotDetected); N meningitidis Not Reported Not Detected (NotDetected); NDM Resistant Gene Not Detected (NotDetected); OXA 48 Like Resistant Gene Not Detected (NotDetected); P aeruginosa Not Reported Not Detected (NotDetected); Proteus spp Not Reported Not Detected (NotDetected); Salmonella spp Not Reported Not Detected (NotDetected); Staph lugdunensis Not Reported Not Detected (NotDetected); Staph spp. Not Reported Not Detected (NotDetected); Staphaureus Not Reported Not Detected (NotDetected); Staphepi Not Reported Not Detected (NotDetected); Stenmaltophilia Not Reported Not Detected (NotDetected); Strep agal(GrpB) Not Reported Not Detected (NotDetected); Strep pneum Not Reported Not Detected (NotDetected); Strep pyog (GrpA) Not Reported Not Detected (NotDetected); Strep spp Not Reported Not Detected (NotDetected); VIM Resistant Gene Not Detected (NotDetected); mcr-1 Colistin Resistant Gene Not Detected (NotDetected)
[2025-01-14] MEDS: ONDANSETRON INJ 2 MG/ML 2 ML VIAL IV PRN (09:53)
[2025-01-14 10:37] LABS: Enterobacterales DETECTED (NotDetected)
[2025-01-14] MEDS: PROMETHAZINE 6.25 MG/50.25 ML BAG IV STA (12:57)
--- NOTE | 2025-01-14 13:08 | Hospitalist Progress Note ---
Date of Service January 14, 2025 Assessment & Plan (1) Bacteremia due to Gram-negative bacteria: Plan: Identification and sensitivities pending. Urinary tract is suspected source. Continue intravenous Rocephin, day 2. (2) UTI (urinary tract infection): Plan: Urine culture results are pending. Continue intravenous Rocephin, day 2 (3) COPD (chronic obstructive pulmonary disease): Plan: Stable. Continue current medical management (4) Essential hypertension: Plan: Stable. Continue current medical management Plan OT and PT assessments recorded. Hopefully she can be discharged home on an oral antibiotic early next week barring any unforeseen complications Admission and Anticipated Discharge Date Admission Date: January 13, 2025 Subjective Alert and oriented. No distress. She does have occasional nausea however. Her blood cultures on admission are now growing gram-negative bacilli. She remains on intravenous Rocephin, day 2. UTI is suspected source. Urine culture results remain pending. OT and PT assessments have been requested. Review of Systems 2 Review of Systems: Constitutionalno fever or chills ENTno blurred vision, no double vision, no epistaxis, no sore throat Respiratoryno cough, no wheezing, no shortness of breath Cardiacno palpitations, no chest pain, no syncope GIintermittent nausea. No vomiting, diarrhea, melena, hematochezia GUno urinary retention, no urinary incontinence, no dysuria, no hematuria Musculoskeletalno joint pain, no muscle tenderness Skinno bruising, no rashes, no pruritus Neurono isolated weakness, no paresthesia, no weakness Psychno depression, no anxiety Physical Exam 2 Physical Exam: General-alert and oriented x3, no fever, no chills HEENT-head atraumatic and normocephalic, pupils equal and reactive to light, extraocular muscles intact Neck-no lymphadenopathy or thyromegaly, trachea midline Chest-clear to auscultation. No rales, wheezing or rhonchi Cardiac-regular rate and rhythm, normal S1 and S2 Abdomen-normal bowel sounds, no hepatosplenomegaly Extremities-no cyanosis, clubbing, or edema Neuro-cranial nerves II through XII intact, motor and sensory function within normal limits, strength symmetrical, no focal deficits Psych-normal affect, normal mood Results & Data Results & Data Vital Signs (Past 12 Hours) Vital Signs Temp Pulse Resp BP Pulse Ox O2 Del Method O2 Flow Rate 01/14/25 07:35 Nasal Cannula 2 01/14/25 07:25 36.5 C 90 16 102/66 98 Nasal Cannula 2 Laboratory Results 01/14/25 06:05 01/13/25 17:36 PG Care Time/CCT Total # of Minutes Spent Total Time Spent with Patient: Total time spent is greater than 50% in coordination of care (as documented) at patient's floor/unit and/or counseling patient: Coding Level of Care Code 74511 SUB INP/OBS CARE 3/50MIN Diagnoses Bacteremia due to Gram-negative bacteria R78.81 Acute cystitis without hematuria N30.00 Urinary tract infection type: acute cystitis Hematuria presence: without hematuria COPD (chronic obstructive pulmonary disease) J44.9 Essential hypertension I10 (2) UTI (urinary tract infection) Urinary tract infection type: acute cystitis Hematuria presence: without hematuria Qualified Code(s): N30.00 - Acute cystitis without hematuria
[2025-01-14] MEDS ORDERED: PROMETHAZINE 12.5 MG/50.5 ML BAG IV PRN (17:00)
[2025-01-14] MEDS: ACETAMINOPHEN 325 MG TAB PO PRN (17:12)
[2025-01-14] MEDS: SODIUM CHLORIDE 0.9% 1,000 ML IV SCH (18:09)
[2025-01-14] MEDS: cefTRIAXone SODIUM 2,000 MG/50 ML BAG IV SCH (18:11)
[2025-01-14] MEDS: diphenhydrAMINE Capsule 25 MG CAP PO ONE (20:20)
[2025-01-15] MEDS: KETOROLAC TROMETHAMINE 15 MG/ML VIAL IV PRN (04:25)
--- NOTE | 2025-01-15 06:02 | Electrocardiogram Report ---
Test Reason : Blood Pressure : */* mmHG Vent. Rate : 114 BPM Atrial Rate : 114 BPM P-R Int : 154 ms QRS Dur : 82 ms QT Int : 304 ms P-R-T Axes : 81 84 74 degrees QTcB Int : 419 ms Sinus tachycardia Premature atrial complexes Nonspecific ST abnormality When compared with ECG of 15-Dec-2024 10:57, No significant change was found Confirmed by Saeid Montemayor ([id number]) on 01/15/2025 6:02:33 AM Referred By: Confirmed By: Saeid Montemayor
[2025-01-15 06:49] LABS: Hematocrit (blood only) 36.9 % (37.0-47.0); Hemoglobin 12.6 g/dl (12.0-16.0); Immature Granulocytes # (auto) 0.04 K/uL (0.01-0.20); Immature Granulocytes % (auto) 0.3 %; Mean Corpuscular Hemoglobin 29.5 pg (25.0-34.0); Mean Corpuscular Volume 86.4 fL (80.0-100.0); Platelet Count 172 K/uL (130-400); RDW Standard Deviation 42.6 fL (36.4-46.3); Red Blood Count 4.27 M/uL (4.20-5.40); White Blood Count 11.60 K/ul (4.8-10.8)
[2025-01-15 07:09] LABS: Anion Gap 7.0 (3-11); Blood Urea Nitrogen 31.0 mg/dl (6-23); Calcium 9.2 mg/dl (8.6-10.3); Carbon Dioxide 23.0 mmol/L (21-32); Chloride 107.0 mmol/L (98-107); Creatinine Clr Calc Pharmacy 33.1 ml/min; Glucose 98.0 mg/dl (70-99(Fasting)); Potassium 4.2 mmol/L (3.5-5.1); Sodium 137.0 mmol/L (136-145)
[2025-01-15] MEDS: POLYETHYLENE (MIRALAX) 17 GM PACK PO SCH (11:59)
--- NOTE | 2025-01-15 12:50 | Hospitalist Progress Note ---
Date of Service January 15, 2025 Assessment & Plan (1) Bacteremia due to Gram-negative bacteria: Plan: Identification and sensitivities pending. Probably is E. coli though which was found in the urine. Urinary tract is suspected source. Continue intravenous Rocephin, day 3. Repeat blood cultures ordered today, January 15 (2) UTI (urinary tract infection): Plan: Pansensitive E. coli noted on urine culture. Continue intravenous Rocephin, day 3 (3) COPD (chronic obstructive pulmonary disease): Plan: Stable. Continue current medical management (4) Essential hypertension: Plan: Stable. Continue current medical management Plan OT and PT assessments requested. Hopefully she can be discharged home on an oral antibiotic within the next day or 2 barring any unforeseen complications Admission and Anticipated Discharge Date Admission Date: January 13, 2025 Subjective She states she still does not feel well but hopefully she will turn the corner soon. Urine cultures growing pansensitive E. coli. Currently on Rocephin, day 3. Blood culture from January 13 is positive for gram-negative bacilli yet to be identified but probably E. coli. Will repeat blood cultures again today, January 15. If second set of blood cultures is negative, she can probably switch to an oral antibiotic to continue a 2-week course. OT and PT assessments ordered and pending. MiraLAX ordered for constipation. She is currently on oxygen at 2 L and states she has oxygen at home and usually only uses it at bedtime. Review of Systems 2 Review of Systems: Constitutionalno fever or chills ENTno blurred vision, no double vision, no epistaxis, no sore throat Respiratoryno cough, no wheezing, no shortness of breath Cardiacno palpitations, no chest pain, no syncope GIintermittent nausea. No vomiting, diarrhea, melena, hematochezia GUno urinary retention, no urinary incontinence, no dysuria, no hematuria Musculoskeletalno joint pain, no muscle tenderness Skinno bruising, no rashes, no pruritus Neurono isolated weakness, no paresthesia, no weakness Psychno depression, no anxiety Physical Exam 2 Physical Exam: General-alert and oriented x3, no fever, no chills HEENT-head atraumatic and normocephalic, pupils equal and reactive to light, extraocular muscles intact Neck-no lymphadenopathy or thyromegaly, trachea midline Chest-clear to auscultation. No rales, wheezing or rhonchi Cardiac-regular rate and rhythm, normal S1 and S2 Abdomen-normal bowel sounds, no hepatosplenomegaly Extremities-no cyanosis, clubbing, or edema Neuro-cranial nerves II through XII intact, motor and sensory function within normal limits, strength symmetrical, no focal deficits Psych-normal affect, normal mood Results & Data Results & Data Vital Signs (Past 12 Hours) Vital Signs Temp Pulse Resp BP Pulse Ox O2 Del Method FiO2 01/15/25 08:09 Room Air, Nasal Cannula 2 01/15/25 07:19 36.7 C 83 16 114/69 94 Room Air Laboratory Results 01/15/25 06:17 01/15/25 06:17 PG Care Time/CCT Total # of Minutes Spent Total Time Spent with Patient: Total time spent is greater than 50% in coordination of care (as documented) at patient's floor/unit and/or counseling patient: Coding Level of Care Code 24327 SUB INP/OBS CARE 2/35MIN Diagnoses Bacteremia due to Gram-negative bacteria R78.81 Acute cystitis without hematuria N30.00 Urinary tract infection type: acute cystitis Hematuria presence: without hematuria COPD (chronic obstructive pulmonary disease) J44.9 Essential hypertension I10 (2) UTI (urinary tract infection) Urinary tract infection type: acute cystitis Hematuria presence: without hematuria Qualified Code(s): N30.00 - Acute cystitis without hematuria
[2025-01-16 06:21] LABS: Hematocrit (blood only) 34.0 % (37.0-47.0); Hemoglobin 11.4 g/dl (12.0-16.0); Immature Granulocytes # (auto) 0.03 K/uL (0.01-0.20); Immature Granulocytes % (auto) 0.4 %; Mean Corpuscular Hemoglobin 29.2 pg (25.0-34.0); Mean Corpuscular Volume 87.2 fL (80.0-100.0); Platelet Count 177 K/uL (130-400); RDW Standard Deviation 42.9 fL (36.4-46.3); Red Blood Count 3.90 M/uL (4.20-5.40); White Blood Count 7.45 K/ul (4.8-10.8)
[2025-01-16 06:38] LABS: Anion Gap 5.0 (3-11); Blood Urea Nitrogen 23.0 mg/dl (6-23); Calcium 9.0 mg/dl (8.6-10.3); Carbon Dioxide 24.0 mmol/L (21-32); Chloride 109.0 mmol/L (98-107); Creatinine Clr Calc Pharmacy 34.2 ml/min; Glucose 96.0 mg/dl (70-99(Fasting)); Potassium 4.4 mmol/L (3.5-5.1); Sodium 138.0 mmol/L (136-145)
--- NOTE | 2025-01-16 12:58 | XRay Report ---
XR chest 1V portable CLINICAL HISTORY: dyspnea, hypoxia COMPARISON STUDY: 01/13/2025 FINDINGS: Stable thoracic neurostimulator lead. Heart size and pulmonary vasculature are normal. Stab le hyperexpanded lungs. No consolidation or significant pleural effusion seen. No pneumothorax. IMPRESSION: No acute findings. ACT 112: Negative or not required by law. Electronically signed by: Wilson Truong M.D. 01/16/2025 12:57 PM
[2025-01-16] MEDS: ALBUT/IPRATROP 3MG/0.5MG NEB 3 ML VIAL NEB PRN (13:42)
--- NOTE | 2025-01-16 14:28 | Hospitalist Progress Note ---
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 UA suspicious for infection on presentation. She was admitted for IV antibiotics. #Gram-negative bacteremia - suspect urinary source - Positive pansensitive E. coli blood culture from 01/13 - Repeat blood cultures from 01/15 negative x 24 hours - continue to monitor - Continue Ceftriaxone IV - Plan on 7 day total antibiotic course for gram negative bacteremia with source control #UTI - Urine culture grew pansensitive E. coli - Continue Ceftriaxone IV as above #COPD wears 2 L O2 via NC HS at baseline. Does not require daytime O2 at baseline - Continue home inhalers - CXR obtained 01/16 due to dyspnea -no pleural effusions or focal consolidations noted - DuoNebs Q4H PRN #Hypertensioncontinue spironolactone, lisinopril #Chronic painbuprenorphine patch weeklycontinue normal scheduled dosing #Mental healthcontinue bupropion, buspirone VTE PPx: SCDs Dispo: PT/OT recommending continued therapy while admitted but hopefully can be discharged home when medically stable. Anticipate discharge in next 24-48 hours. Ordered CXR and DuoNebs Admission and Anticipated Discharge Date Admission Date: January 13, 2025 Subjective Patient seen and evaluated at bedside. She reports feeling dyspneic today. She notes at home she is able to walk all over her house and run errands without feeling short of breath. However today she was walking from her bed to the bathroom in her room makes her feel short of breath. She denies any significant cough, chest congestion, sinus congestion, headache. We discussed checking a chest x-ray and asking the respiratory team to come provide a breathing treatment. She denies any additional complaints or concerns at this time. Physical Exam Physical Exam: General: No acute distress, nondiaphoretic, well-developed, well-nourished. Skin: Warm, dry. No rashes or peripheral edema noted. Cardiac: Regular rate and rhythm without murmurs gallops or rubs. Pulm: Diminished in bases but otherwise clear to auscultation bilaterally without wheezes, rales or rhonchi. Normal respiratory effort. 91% on room air. Abdominal: Soft, nontender, nondistended. Bowel sounds present. Neuro: A&O x3. No focal neurological deficits. Results & Data Results & Data Vital Signs (Past 12 Hours) Vital Signs Temp Pulse Resp BP Pulse Ox Pulse Ox Pulse Ox 01/16/25 13:43 91 H 14 91 01/16/25 13:35 96 82 L 01/16/25 07:45 01/16/25 07:09 98.2 F 93 H 16 150/84 H 97 O2 Del Method O2 Flow Rate O2 Flow Rate O2 Flow Rate FiO2 01/16/25 13:43 Room Air 21 01/16/25 13:35 2 0 01/16/25 07:45 Nasal Cannula 2 01/16/25 07:09 Nasal Cannula 2 Laboratory Results Reviewed CBC with differential Reviewed BMP Reviewed blood cultures PG Care Time/CCT Total # of Minutes Spent Total Time Spent with Patient: Total time spent is greater than 50% in coordination of care (as documented) at patient's floor/unit and/or counseling patient: Coding Level of Care Code 40813 SUB INP/OBS CARE 3/50MIN Diagnoses Bacteremia due to Gram-negative bacteria R78.81 Acute cystitis without hematuria N30.00 Urinary tract infection type: acute cystitis Hematuria presence: without hematuria COPD (chronic obstructive pulmonary disease) J44.9 Essential hypertension I10 (2) UTI (urinary tract infection) Urinary tract infection type: acute cystitis Hematuria presence: without hematuria Qualified Code(s): N30.00 - Acute cystitis without hematuria
[2025-01-17 07:13] VITALS: BP 116/68; PULSE 96; RESP 16; TEMP 98.4; O2SAT 95
[2025-01-17 07:23] LABS: Hematocrit (blood only) 34.1 % (37.0-47.0); Hemoglobin 11.6 g/dl (12.0-16.0); Immature Granulocytes # (auto) 0.03 K/uL (0.01-0.20); Immature Granulocytes % (auto) 0.4 %; Mean Corpuscular Hemoglobin 29.6 pg (25.0-34.0); Mean Corpuscular Volume 87.0 fL (80.0-100.0); Platelet Count 190 K/uL (130-400); RDW Standard Deviation 43.0 fL (36.4-46.3); Red Blood Count 3.92 M/uL (4.20-5.40); White Blood Count 7.46 K/ul (4.8-10.8)
[2025-01-17 07:39] LABS: Anion Gap 6.0 (3-11); Blood Urea Nitrogen 15.0 mg/dl (6-23); Calcium 9.0 mg/dl (8.6-10.3); Carbon Dioxide 23.0 mmol/L (21-32); Chloride 110.0 mmol/L (98-107); Creatinine Clr Calc Pharmacy 40.2 ml/min; Glucose 104.0 mg/dl (70-99(Fasting)); Potassium 4.1 mmol/L (3.5-5.1); Sodium 139.0 mmol/L (136-145)
--- NOTE | 2025-01-17 19:10 | Discharge Summary ---
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 UA suspicious for infection on presentation. She was admitted for IV antibiotics. #Gram-negative bacteremia | *Sepsis due to Escherichia coli [E. coli], POA - suspect urinary source - Positive pansensitive E. coli blood culture from 01/13 - Repeat blood cultures from 01/15 negative - Treated with ceftriaxone IV while hospitalized. Discharged on cefpodoxime 200 mg twice daily through 01/19 to complete a 7-day total antibiotic course #UTI - Urine culture grew pansensitive E. coli - Antibiotics as outlined above #COPD wears 2 L O2 via NC HS at baseline - Continue home inhalers - CXR obtained 01/16 due to dyspnea - no pleural effusions or focal consol idations noted - DuoNebs Q4H PRN #Hypertensioncontinue spironolactone, lisinopril #Chronic painbuprenorphine patch weeklycontinue normal scheduled dosing #Mental healthcontinue bupropion, buspirone VTE PPx: SCDs Dispo: Discharged home 01/17 Notes For Next Care Provider Medication Changes From Visit Cefpodoxime 200 mg twice daily through 01/19 Admission HPI Per Admitting Provider 84-year-old female PMHx COPD, HTN, spinal stenosis, HLD, prior SBO, depression and anxiety, and chronic pain with spinal nerve stimulator 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 She reports giving a urine sample that was "lost" so she never got the results of this. She was not started on any treatment. She was having retention and hesitancy at that time. This continued into the day of arrival, with generalized weakness worsening since that time. She states she did not take her temperature but thinks she may have felt warm. No chills. She has chronic breathing "problems", uses oxygen at baseline (2L O2 via NC, mainly at HS). She has not had worsening SOB or cough. Denies CP, SOB, palpitations, abdominal pain, N/V/D/C, numbness/tingling, URI symptoms, F/C, ongoing LUTS, syncope, or falls. ED evaluation reveals CBC without leukocytosis or leukopenia, stable H&H; VBG's pH 7.42; CMP glucose 108, bilirubin 2.9, direct bilirubin 1.4, alkaline phosphatase 165; lactate 1.2; procalcitonin 0.51; UA suspicious for infection; BioFire negative; MRSA pending; CXR no active disease; CTAP possible cystitis; EKG sinus tachycardia at 114 bpm.; Provided with Plasma-Lyte 1L, ketorolac 15 mg IV, and ceftriaxone 2 g IV in ED. Please see Dr. Servin attestation for adjustments/additions to treatment plan. Discharge Exam General: No acute distress, nondiaphoretic, well-developed, well-nourished. Skin: Warm, dry. No rashes or peripheral edema noted. Cardiac: Regular rate and rhythm without murmurs gallops or rubs. Pulm: Diminished in bases but otherwise clear to auscultation bilaterally without wheezes, rales or rhonchi. Normal respiratory effort. 95% on 2L NC. Abdominal: Soft, nontender, nondistended. Bowel sounds present. Neuro: A&O x3. No focal neurological deficits. Discharge Plan Discharge Items Patient Disposition: Home - Self-Care Reason For Visit: UTI, WEAK Discharge Diagnosis: UTI, gram-negative bacteremia with E. coli Condition on Discharge: Serious Activity: Resume your previous activity Non-emergency contact: Primary Care Provider Call non-emergency contact if: you have any medication questions and your symptoms worsen Follow-up/Referrals: Tana Ramsey MD [Primary Care Provider] - 01/26/25 11:00 am (Follow-up in 1-2 weeks) Diet: Regular Addtl Attending Provider Instructions: Kendal, You were admitted to the hospital for treatment of your UTI. You were also found to have bacteremia (infection in your blood stream) from the UTI. F ortunately, E. coli bacteremia does not require an extensive antibiotic course. You were treated with IV antibiotics while in the hospital and will continue taking oral antibiotics at home. Upon discharge from the hospital: * Take cefpodoxime (oral antibiotic) 200 mg twice daily through 01/19 to complete a 7-day total antibiotic course. Start this antibiotic tonight 01/18, then continue on twice daily dosing tomorrow. * It is important to complete this course of antibiotics even if you begin to feel better. Not finishing her antibiotics can result in the infection returning and/or can make future infections harder to treat. * Side effects of oral antibiotics include GI upset, so I recommend taking your antibiotic with food to prevent any associated nausea/vomiting/diarrhea. * Continue your other home medications as prescribed. * Follow-up with your PCP in 1-2 weeks. If you intend on changing PCPs, I recommend reestablishing with a new PCP in the upcoming week. Please return to the hospital if you experience any of the following: Fever of 100.5 F or higher while taking antibiotics, persistent nausea with vomiting, reduced or no urine output, blood in your urine (hematuria), flank/low back pain, difficulty breathing, chest pain, passing out, confusion, or any other symptoms concerning for you. It was a pleasure taking care of you while you were in the hospital! Pending Studies at Discharge: No Stand-Alone Forms: My [facility] [employer], Smoking Cessation Medications and DC Order Prescriptions: New cefpodoxime 200 mg tablet 200 mg PO BID Qty: 5 0RF Rx Instructions: must administer with a meal/food Continued bupropion HCl 300 mg tablet extended release 24 hr 300 mg PO QAM (DME) Aeroneb Go Nebulizer Misc See Rx Instructions .MEDSUPPLY Qty: 1 0RF Rx Instructions: With tubing and supplies. J44.9. J45.9. lisinopril 10 mg tablet 10 mg PO DAILY Qty: 90 3RF Breztri Aerosphere 160-9-4.8 mcg/actuation HFA aerosol inhaler 2 inh inhalation BID Qty: 10.7 12RF buprenorphine 20 mcg/hour patch weekly 1 patch transdermal Q7D Qty: 4 0RF Rx Instructions: ONGOING THERAPY ipratropium-albuterol 0.5 mg-3 mg(2.5 mg base)/3 mL solution for nebulization 3 ml INH Q8H PRN (Reason: shortness of breath or wheezing) Qty: 180 1RF (DME) nebulizer accessories Kit See Rx Instructions .Route Qty: 2 12RF Rx Instructions: Nebulizer suppies (neb Kits) (DME) Incentive Spirometer Misc See Rx Instructions .MEDSUPPLY Qty: 1 0RF Rx Instructions: As directed albuterol sulfate 90 mcg/actuation HFA aerosol inhaler 2 puff INH Q6H PRN (Reason: Shortness Of Breath Or Wheezing) Qty: 18 5RF buspirone 10 mg tablet 10 mg PO BID spironolactone 25 mg tablet 25 mg PO DAILY Rx Instructions: TAKE 1 TABLET BY MOUTH ONCE DAILY Discharge Orders: Discharge Order (Routine); Ordered 01/17/25 Ordered By: Julia Finch/Other Patient Handouts: COPD Controlled Breathing Dc Admission Data Admit Date/Time: 01/13/25 21:10 Attending Provider: Daniel Hendrickson Admit Provider: Leighton Servin Primary Care Provider: Tana Ramsey Other Providers: Leighton Servin Other Interventions: Discharge Summary Assessment (RN) Last Done: 01/17/25 11:36 Hospital Stay Data Consultations 01/13/25 20:43 ED Decision to Admit Stat Diagnostic Imagining Performed Chest X-Ray 01/13/25 17:41 Clinical History: Sepsis Technique: 2 frontal views of the chest were obtained Comparison is made to the prior examination dated 03/29/2024 Findings: There are no definite pulmonary infiltrates. The heart size is within normal limits. No pleural effusion or pneumothorax is seen. No fracture is noted. There is thoracic scoliosis and degenerative disc disease. There are stimulatory leads in the spinal canal Impression: No active disease Electronically signed by Andrés Castillo 01-13-2025 7:00 PM Abdomen/Pelvis CT 01/13/25 18:50 CT of the abdomen pelvis with contrast Technique: Postcontrast axial images of the abdomen pelvis. Coronal and sagittal reformatted images made available for review Comparison made with prior exam dated 05/24/2022 Findings: Diffuse changes COPD. 1.2 cm left renal cyst. Remaining solid abdominal organs unremarkable appearance. No free air or intestinal obstruction. There is wall thickening involving the a urinary bladder which is under distended. Findings represent cystitis in appropriate clinical setting. Diffuse vascular calcifications. Postoperative changes as L1-S2 interbody fusion. Impression Circumferential wall thickening of the urinary bladder which may represent cystitis in appropriate clinical setting. Correlate with urinalysis recommended. Clinical correlation recommended Electronically signed by Daniel Donis 01-13-2025 9:12 PM Chest X-Ray 01/16/25 12:37 XR chest 1V portable CLINICAL HISTORY: dyspnea, hypoxia COMPARISON STUDY: 01/13/2025 FINDINGS: Stable thoracic neurostimulator lead. Heart size and pulmonary vasculature are normal. Stable hyperexpanded lungs. No consolidation or signi ficant pleural effusion seen. No pneumothorax. IMPRESSION: No acute findings. ACT 112: Negative or not required by law. Electronically signed by: Wilson Truong M.D. 01/16/2025 12:57 PM Pending Results Patient Have Any Pending Studies at Discharge: No Discharge Instructions Given to Patient (Per Discharging Provider) Ra Edmonds were admitted to the hospital for treatment of your UTI. You were also found to have bacteremia (infection in your blood stream) from the UTI. Fortunately, E. coli bacteremia does not require an extensive antibiotic course. You were treated with IV antibiotics while in the hospital and will continue taking oral antibiotics at home. Upon discharge from the hospital: * Take cefpodoxime (oral antibiotic) 200 mg twice daily through 01/19 to complete a 7-day total antibiotic course. Start this antibiotic tonight 01/18, then continue on twice daily dosing tomorrow. * It is important to complete this course of antibiotics even if you begin to feel better. Not finishing her antibiotics can result in the infection returning and/or can make future infections harder to treat. * Side effects of oral antibiotics include GI upset, so I recommend taking your antibiotic with food to prevent any associated nausea/vomiting/diarrhea. * Continue your other home medications as prescribed. * Follow-up with your PCP in 1-2 weeks. If you intend on changing PCPs, I recommend reestablishing with a new PCP in the upcoming week. Please return to the hospital if you experience any of the following: Fever of 100.5 F or higher while taking antibiotics, persistent nausea with vomiting, reduced or no urine output, blood in your urine (hematuria), flank/low back pain, difficulty breathing, chest pain, passing out, confusion, or any other symptoms concerning for you. It was a pleasure taking care of you while you were in the hospital! Supervising Physician Co-Signing Physician Notes chart reviewed, case d/w S Gross PAC, as above Total Time Total Time Spent Total Time Spent (In Minutes): Greater than 30 minutes spent completing this discharge process including direct patient care, medication reconciliation, documentation, review of labs and images, and coordination of care. Coding Level of Care Code 76327 INP/OBS DISCH >30 MIN Diagnoses Bacteremia due to Gram-negative bacteria R78.81 Acute cystitis without hematuria N30.00 Hematuria presence: without hematuria Urinary tract infection type: acute cystitis COPD (chronic obstructive pulmonary disease) J44.9 Essential hypertension I10
[2025-01-18] MEDS ORDERED: REMOVE & WASTE BUTRANS PATCH 1 EA EA SCH (08:59)
[2025-01-18] MEDS ORDERED: BUPRENORPHINE 10 MCG/HR TDSY TD SCH ×2 (09:00)
== END 2025-01-17 12:38 | disposition home or self-care (01) | DRG 872 ==
LOC: ED 17:28 → 3W 21:10 → SUATTDRO 21:10 → 3W 21:52